=== PATIENT | female | born 1955 | race Caucasian/White ===

== ENCOUNTER 2024-06-24 14:37 | Outpatient (OUT) | payer MEDICARE, MEDICAID, SELFPAY | END 2024-06-24 14:38 | disposition home or self-care (01) | LOC: WC 14:37 | PROVIDERS: PCP Family Medicine; Visit Provider Physician Assistant | DX: L97.912 Non-pressure chronic ulcer of unspecified part of right lower leg with fat layer exposed (principal) | CPT/HCPCS: G0463 ==

== ENCOUNTER 2024-07-10 13:18 | Outpatient (OUT) | payer MEDICARE, MEDICAID, SELFPAY | END 2024-07-10 13:19 | disposition home or self-care (01) | LOC: WC 13:18 | PROVIDERS: PCP Family Medicine; Visit Provider Physician Assistant | DX: L97.912 Non-pressure chronic ulcer of unspecified part of right lower leg with fat layer exposed (principal) | CPT/HCPCS: 11043 ==

== ENCOUNTER 2024-07-22 15:42 | Outpatient (OUT) | payer MEDICARE, MEDICAID, SELFPAY | END 2024-07-22 15:43 | disposition home or self-care (01) | LOC: WC 15:45 | PROVIDERS: PCP Family Medicine; Visit Provider Physician Assistant | DX: I87.312 Chronic venous hypertension (idiopathic) with ulcer of left lower extremity (principal); L97.822 Non-pressure chronic ulcer of other part of left lower leg with fat layer exposed | CPT/HCPCS: A6213; G0463 ==

== ENCOUNTER 2024-10-01 14:35 | Outpatient (OUT) | payer MEDICARE, MEDICAID, SELFPAY | END 2024-10-01 14:36 | disposition home or self-care (01) | LOC: WC 14:35 | PROVIDERS: PCP Family Medicine; Visit Provider Physician Assistant | DX: I87.312 Chronic venous hypertension (idiopathic) with ulcer of left lower extremity (principal); L97.822 Non-pressure chronic ulcer of other part of left lower leg with fat layer exposed | CPT/HCPCS: G0463 ==

== ENCOUNTER 2024-10-22 13:27 | Outpatient (OUT) | payer MEDICARE, MEDICAID, SELFPAY ==
--- OUTSIDE RECORDS SUMMARY | 2024-10-22 13:29 | XMS_ITS | Encounter Summary ---
Author Organization [facility] Address [id number] [address] [place] [address] Care Team Providers Care Trench Trimmer Fine Name Role Phone Jh Keaton Joy BUNN Primary Care Provider [phone] Reason for Visit * Reason Onset Date Comments Care Navigation 05/10/2023 Encounter Details Date Type Department Care Team (Late st Contact Info) Description 05/10/2023 Telephone [facility] - Family Medicine [address] [place] [phone] Linda Ulloa, CIPRIANO Care Navigation Social History Tobacco Use Types Packs/Day Years Used Date Smoking Tobacco: Former Cigarettes Smokeless Tobacco: Never Comments:smoked for 1 year w tab was age 18 Alcohol Use Standard Drinks/Week Comments Yes 1 (1 standard drink = 0.6 oz pur e alcohol) socially Social Connection and Isolat ion Panel [NHANES] Answer Date Recorded In a typical week, how many times do you talk on the phone with family, friends, or neighbors? More than three times a week 02/27/2023 How often do you get togethe r with friends or relatives? Three times a week 02/27/2023 How often do you attend chur ch or anabaptism services? More than 4 times per year 02/27/2023 Do you belong to any clubs o r organizations such as congregational groups, unions, fraternal or athletic groups, or school groups? No 02/27/2023 How often do you attend meet ings of the clubs or organizations you belong to? Never 02/27/2023 Are you , , di vorced, , never , or living with a partner? 02/27/2023 AUDIT-C Answer Date Recorded Q1: How often do you have a drink containing alcohol? Monthly or less 02/27/2023 Q2: How many drinks containi ng alcohol do you have on a typical day when you are drinking? Patient does not drink Q3: How often do you have si x or more drinks on one occasion? Never 02/27/2023 Overall Financial Resource Strain (CARDIA) Answe r Date Recorded How hard is it for you to pa y for the very basics like food, housing, medical care, and heating? Hard 02/27/2023 PHQ-2 Answer Date Recorded Total Score 4 05/09/2023 [facility] - Occupational Stress Questionnaire Answer Date Recorded Do you feel stress - tense, restless, nervous, or anxious, or unable to sleep at night because your mind is troubled all the time - these days? To some extent 02/27/2023 Exercise Vital Sign Answer Date Recorde d On average, how many days pe r week do you engage in moderate to strenuous exercise (like a brisk walk)? 0 days 02/27/2023 On average, how many minutes do you engage in exercise at this level? 0 min 02/27/2023 PRAPARE - Transportation Answer Date Re corded In the past 12 months, has l ack of transportation kept you from medical appointments or from getting medications? No 02/18 In the past 12 months, has l ack of transportation kept you from meetings, work, or from getting things needed for daily living? No 02/27/2023 Housing Instability Answer Date Recorde d Are you worried or concerned that in the next two months you may not have stable housing that you own, rent or stay in as a part of a household? No 02/27/2023 Childcare Answer Date Recorded Do problems getting child ca re make it difficult for you to work or study? No 02/27/2023 Employment Answer Date Recorded Do you need help finding a [facility] and/or a training program? No 02/27/2023 Hunger Screening Answer Date Recorded Within the past 12 months we worried whether our food would run out before we got money to buy more. Often True 05/09/2023 Within the past 12 months th e food we bought just didn't last and we didn't have money to get more. Often True 05/09/2023 Purpose - Life Answer Date Recorded I have a purpose and direction in my life. Somew hat Agree 02/27/2023 Comments No Sex and Gender Information Value Date Recorded Sex Assigned at Not on file Legal Sex Female 11:24 AM EDT Gender Identity Not on file Sexual Orientation Not on file documented as of this encounter Plan of Treatment Not on file documented as of this encounter Visit Diagnoses Not on filedocumented in this encounter Additional Health Concerns Infection Onset Date Last Indicated Resolved Time COVID-19 Rule-Out 05/21/2023 05/21/2023 05/21/2023 12:48 PM EST Assessment Noted Time PHQ-9 Depression Total Score: 4 05/09/20 23 2:40 PM EST A Body Mass Index follow-up plan has been documented for the patient 04/23/2019 8:40 AM EST documented as of this encounter Care Teams Trench Trimmer Fine Relationship Specialty Start Date End Date Keaton Peñaloza DO [address] [place] [address] PCP - General Internal Medicine 06/24/24 documented as of this encounter
--- OUTSIDE RECORDS SUMMARY | 2024-10-22 13:29 | XMS_ITS | Encounter Summary ---
[id number] [address] [place] [address] Care Team Providers Care Turbinated Bone Grinder Name Role Phone Keaton Peñaloza DO Primary Care Provider [phone] Encounter Details Date Type Department Care Team (Late st Contact Info) Description 05/11/2023 Orders Only [facility] Internal [facility] - Family Medicine [address] [place] [address] Keaton Peñaloza DO [address] [place] [address] Rectal bleeding (Primary Dx) Social History Tobacco Use Types Packs/Day Years [...] often do you attend chur ch or rastafari services? More than 4 times per year 02/27/2023 Do you belong to any clubs o r organizations such as baptism groups, unions, fraternal or athletic groups, or [...] Answer Date Recorded Total Score 4 05/09/2023 [facility] of Occupat ional Health - Occupational [...] Recorded Do you need help finding a l ocal career center and/or a training program? No [...] documented as of this encounter Visit Diagnoses Diagnosis Rectal bleeding- Primary Hemorrhage of rectum and anus documented in this encounter Additional Health Concerns Infection Onset Date Last Indicated Resolved Time COVID-19 Rule-Out 05/21/2023 05/21/2023 05/21/2023 12:48 PM EST Assessment Noted Time PHQ-9 Depression Total Score: 4 05/09/20 23 2:40 PM EST A Body Mass Index follow-up plan has been documented for the patient 04/23/2019 8:40 AM EST documented as of this encounter Care Teams Turbinated Bone Grinder Relationship Specialty Start Date End Date Keaton Peñaloza DO [address] [place] [address] PCP - General Internal Medicine 06/24/24 documented as of this encounter
--- OUTSIDE RECORDS SUMMARY | 2024-10-22 13:29 | XMS_ITS | Encounter Summary ---
Author Organization [id number] [address] [place] [address] Care Team Providers Care Professional Shopper Name Role Phone Keaton Peñaloza DO Primary Care Provider [phone] Encounter Details Date Type Department Care Team (Late st Contact Info) Description 05/09/2024 Orders Only [facility] - Family Medicine [address] [place] [phone] Keaton Peñaloza DO [address] [place] [address] Social History Tobacco Use Types Packs/Day Years Used Date Smoking Tobacco: Former Cigarettes Q uit: 1976 Smokeless Tobacco: Never Comments:smoked for 1 year w hen was age 18 Alcohol Use Standard Drinks/Week Comments Yes 1 (1 standard drink = 0.6 oz pur e alcohol) socially [employer] Utilities Answer Date Recorded In the past 12 months has [employer], gas, oil, or water [employer] threatened to shut off services in your home? Yes 07/30/2023 Social Connection and Isolat ion Panel [NHANES] Answer Date Recorded In a typical week, how many times do you talk on the phone with family, friends, or neighbors? More than three times a week 02/27/2023 How often do you get togethe r with friends or relatives? Three times a week 02/27/2023 How often do you attend chur or hindu services? More than 4 times per year 02/27/2023 Do you belong to any clubs o r organizations such as methodist groups, unions, fraternal or athletic groups, or [...] 02/27/2023 PHQ-2 Answer Date Recorded Total Score 17 08/20/2023 [facility]ational Stress Questionnaire Answer Date Recorded [...] from medical appointments or from getting medications? Yes 07/19 In the past 12 months, has l ack of transportation kept you from meetings, work, or from getting things needed for daily living? No 07/30/2023 Housing Instability Answer Date Recorde d Are you worried or concerned that in the next two months you may not have stable housing that you own, rent or stay in as a part of a household? No 07/30/2023 Childcare Answer Date Recorded Do problems getting child ca re make it difficult for you to work or study? No 02/27/2023 Employment Answer Date Recorded Do you need help finding a [facility] and/or a training program? No 02/27/2023 Hunger Screening Answer Date Recorded Within the past 12 months we worried whether our food would run out before we got money to buy more. Often True 05/08/2024 Within the past 12 months th e food we bought just didn't last and we didn't have money to get more. Often True 05/08/2024 Purpose - Life Answer Date Recorded I [...] on file documented as of this encounter Goals Goal Patient Goal Type Associated Problems Recent Progress Patient-Stated? Author safe transition to home General Yes Nini De Luna LSW Note: Evaluation of progress towards goal: safe transition to home with self care. documented as of this encounter Visit Diagnoses Not on filedocumented in this encounter Additional Health Concerns Assessment Noted Time PHQ-9 Depression Total Score: 17 024 1:37 PM EDT A Body Mass Index follow-up plan has been documented for the patient 04/23/2019 8:40 AM EST documented as of this encounter Care Teams Professional Shopper Relationship Specialty Start Date End Date Keaton Peñaloza DO [address] [place] [address] PCP - General Internal Medicine 06/24/24 documented as of this encounter
--- OUTSIDE RECORDS SUMMARY | 2024-10-22 13:29 | XMS_ITS | Encounter Summary ---
Author Organization [facility] Address [facility][id number] [address] [place] [address] Care Team Providers Care Admission Nurse Name Role Phone MarissarocioKeaton DO Primary Care Provider [phone] Encounter Details Date Type Department Care Team (Late st Contact Info) Description 04/11/2024 Telephone [facility] - Family Medicine [address] [place] [phone] Vannessa Harris CMA Social History Tobacco Use Types Packs/Day Years Used Date Smoking Tobacco: Former Cigarettes Q uit: 1976 Smokeless Tobacco: Never Comments:smoked for 1 year w hen was age 18 Alcohol Use Standard Drinks/Week Comments Yes 1 (1 standard drink = 0.6 oz pur e alcohol) socially [employer] Utilities Answer Date Recorded In the past 12 months has e electric, gas, oil, or water company threatened to shut off services in your [...] often do you attend chur ch or catholic services? More than 4 times per year 02/27/2023 Do you belong to any clubs o r organizations such as sikh groups, unions, fraternal or athletic groups, or [...] Answer Date Recorded Total Score 17 08/20/2023 [facility] Occupat ional [facility] - Occupational Stress Questionnaire Answer Date Recorded [...] Recorded Do you need help finding a [facility] and/or a training program? No 02/27/2023 Hunger Screening Answer Date Recorded Within the past 12 months we worried whether our food would run out before we got money to buy more. Often True 12/27/2023 Within the past 12 months th e food we bought just didn't last and we didn't have money to get more. Often True 12/27/2023 Purpose - Life Answer Date Recorded I [...] documented as of this encounter Care Teams Admission Nurse Relationship Specialty Start Date End Date Keaton Peñaloza DO [address] [place] [id number] PCP - General Internal Medicine 06/24/24 documented as of this encounter
--- OUTSIDE RECORDS SUMMARY | 2024-10-22 13:29 | XMS_ITS | Encounter Summary ---
Author Organization [facility] Address [id number] [address] [place] [address] Care Team Providers Care Couture Alterations Dressmaker Name Role Phone MarissarocioKeaton DO Primary Care Provider [phone] Encounter Details Date Type Department Care Team (Late st Contact Info) Description 05/01/2024 Telephone [facility] - Family Medicine [address] [place] [phone] Yolanda Roth CMA Social History Tobacco Use Types Packs/Day Years Used Date Smoking Tobacco: Former Cigarettes Q uit: 1976 Smokeless Tobacco: Never Comments:smoked for 1 year w hen was age 18 Alcohol Use Standard Drinks/Week Comments Yes 1 (1 standard drink = 0.6 oz pur e alcohol) socially [employer] Utilities Answer Date Recorded In the past [...] often do you attend chur ch or latter-day services? More than 4 times per year 02/27/2023 Do you belong to any clubs o r organizations such as yazdanism groups, unions, fraternal or athletic groups, or [...] Answer Date Recorded Total Score 17 08/20/2023 [facility] Occupat ional Health - Occupational Stress [...] on file documented as of this encounter Miscellaneous Notes * Telephone Encounter - Yolanda Roth CMA - 05/01/2024 10:13 AM EST Pt called just wanted us to know she has COVID. She went to the urgent care got some medication andwas just making sure she did not have a appt today. She has one next week the 05/08 * Telephone Encounter - Keaton Peñaloza DO - 05/01/2024 10:13 AM EST Message noted. documented in this encounter Plan of Treatment Not on [...] documented as of this encounter Care Teams Couture Alterations Dressmaker Relationship Specialty Start Date End Date Keaton Peñaloza DO [address] [place] [address] PCP - General Internal Medicine 06/24/24 documented as of this encounter
--- OUTSIDE RECORDS SUMMARY | 2024-10-22 13:29 | XMS_ITS | Clinical Summary ---
Author Organization [facility] Address [address] [place] [address] Care Team Providers Care Bill Recapitulation Clerk Name Role Phone Unavailable Primary Care Provider Unavailabl e Allergies Active Allergy Reactions Criticality Noted Date Comments Codeine Nausea Only,GI intolerance Medium 7 Nausea Tramadol Nausea Only,GI intolerance Low 9 Medications amLODIPine (Norvasc) 10 MG tablet Take 1 tablet by mouth at bedtime 5 Active aspirin 81 MG EC tablet Take 81 mg by mouth in the morning. 5 Active atorvastatin (Lipitor) 40 MG tablet Take 40 mg by mouth in the morning. 5 Active busPIRone (Buspar) 10 MG tablet Take 10 mg by mouth in the morning. 4 Active capecitabine (Xeloda) 500 MG chemo tablet Take 2,500 mg by mouth twice a day. 4 Active ferrous sulfate (FeroSul) 325 (65 Fe) MG tablet Take 325 mg by mouth in the morning. 5 Active finerenone (Kerendia) 10 MG tablet Take 10 mg by mouth in the morning. 4 Active insulin glargine (Lantus SoloStar) 100 UNIT/ML pen Inject 60 Units under the skin at bedtime 4 Active insulin lispro (HumaLOG) 100 UNIT/ML injection Inject under the skin if needed Active irbesartan (Avapro) 300 MG tablet Take 300 mg by mouth in the morning. 5 Active meclizine (Antivert) 25 MG tablet Take 25 mg by mouth Daily as needed 5 Active metoprolol tartrate (Lopressor) 50 MG tablet Take 50 mg by mouth in the morning and 50 mg in the evening. 4 Active metroNIDAZOLE (Flagyl) 500 MG tablet Take 500 mg by mouth if needed 5 Active mirtazapine (Remeron) 7.5 MG tablet Take 1 tablet by mouth at bedtime 4 Active ondansetron (Zofran) 8 MG tablet Take 8 mg by mouth every 8 (eight) hours if needed 4 Active polyethylene glycol, PEG, 3350 (Miralax) 17 g packet Take 17 g by mouth 4 Active prochlorperazin e (Compazine) 10 MG tablet Take 10 mg by mouth every 6 (six) hours if needed 4 Active semaglutide (Ozempic, 1 MG/DOSE,) 2 MG/1.5ML solution pen-injector Inject 1 mg under the skin once a week Active SITagliptin-met FORMIN ER (Janumet XR) 50-1000 MG per 24 hr tablet Take 1 tablet by mouth 4 Active Lancets 33G misc Active insulin pen needle (Ultra John Insulin Pen [place]) 32G x 4 mm misc Inject under the skin if needed Use as instructed Active glucose blood test strip 1 each by Other route if needed Use as instructed Active Continuous Glucose Sensor (FreeStyle Vik 2 Sensor) misc Active Continuous Glucose Linoleum Tile Layer (FreeStyle Vik 2 Gibson) device Active Apoaequorin 20 MG capsule Take by mouth Activ e Immunizations Immunization Administration Dates Next Due ABRYSVO - Respiratory syncyt ial virus (RSV), vaccine, bivalent, protein subunit RSV prefusion F, diluent reconstituted, 0.5 mL, PF 01/02/2024 Influenza, High Dose Seasona l, Preservative Free 05/04/2017 Influenza, injectable, quadr ivalent, preservative free 05/03/2017,02/16/2016,02/19/2015 Influenza, seasonal, injectable 02/10/2015 Influenza, seasonal, injecta ble, preservative free 02/11/2014 Pneumococcal Polysaccharide PPSV23 11/01/2016 Tdap 08/22/2019 Zoster, Recombinant 04/30/2018,12/21/2017 Family History Medical History Relation Name Comments Diabetes Brother 1 Diabetes Mother Relation Name Status Comments Brother 1 Alive Daughter 1 Alive Father Alive Mother Son 1 Alive Social History Tobacco Use Types Packs/Day Years Used Date Smoking Tobacco: Never Tobacco Cessation:Counseling Given: Not Answered Alcohol Use Standard Drinks/Week Comments Yes 0 (1 standard drink = 0.6 oz pur e alcohol) one a month Comments Unknown Sex and Gender Information Value Date Recorded Sex Assigned at Not on file Legal Sex Female 7:17 PM EDT Gender Identity Female 08/02/2022 7:17 PM EDT Sexual Orientation Not on file Last Filed Vital Signs Vital Sign Reading Time Taken Comments Blood Pressure 144/88 06/28/2022 3:18 PM EST Pulse 92 06/28/2022 3:18 PM EST Temperature - - Respiratory Rate 18 06/28/2022 3:18 PM EST Oxygen Saturation - - Inhaled Oxygen Concentration - - Weight 102 kg (225 lb) 06/28/2022 3:18 PM EST Height 170.2 cm (5' 7 ) 06/28/2022 3:18 PM EST Body Mass Index 35.24 06/28/2022 3:18 PM EST Plan of Treatment Not on file Insurance [place]ICAID [place]
--- OUTSIDE RECORDS SUMMARY | 2024-10-22 13:29 | XMS_ITS | Referral Summary ---
Author Organization [facility] Address [address] [place] [address] Care Team Providers Care Barkeep Name Role Phone Unavailable Primary Care Provider Unavailabl e Social History Tobacco Use Types Packs/Day Years Used Date Smoking Tobacco: Never Assessed [place] Safety & Environment Answer Date Rec orded Fear of Current or Ex-Partner Not on file Emotionally Abused Not on file 08/10/2023 Physically Abused Not on file 08/10/2023 Sexually Abused Not on file 08/10/2023 Physically or Sexually Abused Not on file Sex and Gender Information Value Date Recorded Sex Assigned at Not on file Gender Identity Not on file Sexual Orientation Not on file Plan of Treatment Not on file
--- OUTSIDE RECORDS SUMMARY | 2024-10-22 13:29 | XMS_ITS | Encounter Summary ---
Author Organization [facility] Address [id number] [address] [place] [address] Care Team Providers Care Mechanical Inspector Name Role Phone MarissacandiceKeaton denis DO Primary Care Provider [phone] Encounter Details Date Type Department Care Team (Late st Contact Info) Description 03/07/2023 Telephone [facility] - Family Medicine [address] [place] [address] Kassi Rosado CMA Social History Tobacco Use Types Packs/Day [...] How often do you attend chur or holiness services? More than 4 times per year 02/27/2023 Do you belong to any clubs o r organizations such as taoism groups, unions, fraternal or athletic groups, or [...] you are drinking? Patient does not drink 3 Q3: How often do you have si x or more drinks on one occasion? Never 02/27/2023 Overall Financial Resource Strain (CARDIA) Answe r Date Recorded How hard is it for you to pa y for the very basics like food, housing, medical care, and heating? Hard 02/27/2023 PHQ-2 Answer Date Recorded Total Score 2 02/27/2023 [facility] Occupat ional Health - Occupational [...] Recorded Do you need help finding a [facility] and/or a training program? No 02/27/2023 Hunger Screening Answer Date Recorded Within the past 12 months we worried whether our food would run out before we got money to buy more. Never True 02/27/2023 Within the past 12 months th e food we bought just didn't last and we didn't have money to get more. Never True 02/27/2023 Purpose - Life Answer Date Recorded I have a purpose and direction in my life. Somew hat Agree 02/27/2023 Comments No Sex and Gender Information Value Date Recorded Sex Assigned at Not on file Legal Sex Female 11:24 AM EDT Gender Identity Not on file Sexual Orientation Not on file documented as of this encounter Miscellaneous Notes * Telephone Encounter - Kassi Rosado CMA - 03/07/2023 3:01 PM EDT I called this patient for her Colonoscopy and she said that she has no transportation right now. She will try to find someone and call us back. * Telephone Encounter - Keaton Peñaloza DO - 03/07/2023 3:01 PM EDT Message noted. I put a reminder in for one month documented in this encounter Plan of Treatment Not on file documented as of this encounter Visit Diagnoses Not on filedocumented in this encounter Additional Health Concerns Infection Onset Date Last Indicated Resolved Time COVID-19 Rule-Out 05/21/2023 05/21/2023 05/21/2023 12:48 PM EST Assessment Noted Time PHQ-9 Depression Total Score: 2 02/28/20 23 3:00 PM EDT A Body Mass Index follow-up plan has been documented for the patient 04/23/2019 8:40 AM EST documented as of this encounter Care Teams Mechanical Inspector Relationship Specialty Start Date End Date Keaton Peñaloza DO [address] [place] [address] PCP - General Internal Medicine 06/24/24 documented as of this encounter
--- OUTSIDE RECORDS SUMMARY | 2024-10-22 13:29 | XMS_ITS | Encounter Summary ---
Author Organization [employer] Address [id number] [address] [place] [address] Care Team Providers Care Piano Regulator Name Role Phone Jh Keaton Joy BUNN Primary Care Provider [phone] Reason for Visit * Reason Onset Date Comments Care Navigation 05/11/2023 Encounter Details Date Type Department Care Team (Late st Contact Info) Description 05/11/2023 Telephone [facility] - Family Medicine [address] [place] [address] Linda Ulloa, CIPRIANO Care Navigation Social History [...] often do you attend chur ch or muslim services? More than 4 times per year 02/27/2023 Do you belong to any clubs o r organizations such as restoration groups, unions, fraternal or athletic groups, or [...] Answer Date Recorded Total Score 4 05/09/2023 [facility] Occupat ional Health - Occupational Stress [...] Recorded Do you need help finding a [facility] career [facility] and/or a training program? [...] encounter Miscellaneous Notes * Telephone Encounter - Linda Ulloa RN - 05/11/2023 10:34 AM EST Contact Type: Direct contact - Phone call with patient - general CN called in follow up with patient. Patient states that she has a ride set up for colonoscopy, butwaiting to verify. Also waiting to verify day of colonoscopy. Vice President Of Product Marketing did review with patient that through her [employer] insurance, she is eligible for [address] trips a year to non-emergent doctor visits. This can also be used for food resources (goingto food bank, food pantry and grocery store for curb side grain picker) They would also need at least 2 days advanced notice. Patient would need to to call [employer] to set up transportation appt. Pt would be able to take 1 judicial assistant with her, as long as judicial assistant was 18 yo or older. Also reviewed with patient TRIPS program servicing [facility], different zones in [facility]. Patient would need to call [phone] at least 24 hours in advance. Sometimes they are able to accommodate same day, depending on ride volume. They also do have rider assistance upon request. CN introduced herself, explained role of property caretaker, TCM services available, and ACN will be available to provide assistance for a minimum of 30 days post discharge. ACN contact information provided, encouraged to call for assistance as needed. * Telephone Encounter - BECKY Camacho - 05/11/2023 10:34 AM EST Thank you that is great to know documented in this encounter Plan of Treatment [...] documented as of this encounter Care Teams Piano Regulator Relationship Specialty Start Date End Date Keaton Peñaloza DO [address] [place] [address] PCP - General Internal Medicine 06/24/24 documented as of this encounter
--- OUTSIDE RECORDS SUMMARY | 2024-10-22 13:29 | XMS_ITS | Encounter Summary ---
Author [facility] Address [id number] [address] [place] [address] Care Team Providers Care Master Brewer Name Role Phone Keaton Peñaloza DO Primary Care Provider [phone] Encounter Details Date Type Department Care Team (Late st Contact Info) Description 03/19/2023 Orders Only [facility] - Family Medicine [address] [place] [address] Keaton Peñaloza DO [address] [place] [address] Type 2 diabetes mellitus with microalbuminuria, with long-term current use of insulin ([facility]) Social History Tobacco Use Types Packs/Day Years [...] often do you attend chur ch or sikhism services? More than 4 times per year 02/27/2023 Do you belong to any clubs o r organizations such as orthodox groups, unions, fraternal or athletic groups, or [...] Answer Date Recorded Total Score 2 02/27/2023 [facility] Occupat ional Health - [...] Do you need help finding a [facility] career center and/or a training program? No [...] as of this encounter Visit Diagnoses Diagnosis Type 2 diabetes mellitus with microalbuminuria, with long-term current use of insulin ([facility]) documented in this encounter Additional Health Concerns Infection Onset Date Last Indicated Resolved Time COVID-19 Rule-Out 05/21/2023 05/21/2023 05/21/2023 12:48 PM EST Assessment Noted Time PHQ-9 Depression Total Score: 2 02/28/20 23 3:00 PM EDT A Body Mass Index follow-up plan has been documented for the patient 04/23/2019 8:40 AM EST documented as of this encounter Care Teams Master Brewer Relationship Specialty Start Date End Date Keaton Peñaloza DO [address] [place] [place] [id number] PCP - General Internal Medicine 06/24/24 documented as of this encounter
--- OUTSIDE RECORDS SUMMARY | 2024-10-22 13:29 | XMS_ITS | Encounter Summary ---
Author Organization [employer] Address [id number] [address] [place] [address] Care Team Providers Care Bow Rehairer Name Role Phone JhKeaton DO Primary Care Provider [phone] Reason for Visit * Reason Onset Date Comments Med Refill 03/20/2024 Encounter Details Date Type Department Care Team (Late st Contact Info) Description 03/20/2024 Refill [facility] - Family Medicine [address] [place] [phone] Aurea Moreau, ALAN Social History Tobacco Use Types Packs/Day Years Used Date Smoking Tobacco: Former Cigarettes Q uit: 1976 Smokeless Tobacco: Never Comments:smoked for 1 year w hen was age 18 Alcohol Use Standard Drinks/Week Comments Yes 1 (1 standard drink = 0.6 oz pur e alcohol) socially C Utilities Answer Date Recorded In the past 12 months has [employer], gas, oil, or water company threatened [...] any clubs o r organizations such as religious groups, unions, fraternal or athletic groups, or [...] Answer Date Recorded Total Score 17 08/20/2023 [facility] of Occupat ional Health - [...] Recorded Do you need help finding a [facility] career center and/or a training program? No [...] documented as of this encounter Care Teams Bow Rehairer Relationship Specialty Start Date End Date Keaton Peñaloza DO [address] [place] [address] PCP - General Internal Medicine 06/24/24 documented as of this encounter
--- OUTSIDE RECORDS SUMMARY | 2024-10-22 13:29 | XMS_ITS | Patient Health Record ---
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
--- OUTSIDE RECORDS SUMMARY | 2024-10-22 13:29 | XMS_ITS | Encounter Summary ---
Author Organization [employer] Address [id number] [address] [place] [address] Care Team Providers Care Clinical Liaison Name Role Phone Jh Keaton Joy BUNN Primary Care Provider [phone] Encounter Details Date Type Department Care Team (Late st Contact Info) Description 03/19/2023 Telephone [facility] - Family Medicine [address] [place] [address] Winter Snider CMA Social History Tobacco Use Types Packs/Day [...] How often do you attend chur or baptist services? More than 4 times per year 02/27/2023 Do you belong to any clubs o r organizations such as roman catholic groups, unions, fraternal or athletic groups, or [...] Answer Date Recorded Total Score 2 02/27/2023 [facility] of Occupat ional Health - Occupational [...] Recorded Do you need help finding a [facility] career center and/or a training program? [...] encounter Miscellaneous Notes * Telephone Encounter - Winter Snider CMA - 03/19/2023 12:33 PM EDT Pt called and Pharmacy never got the Ozempic prescription can you resend documented in this encounter Plan of Treatment [...] documented as of this encounter Care Teams Clinical Liaison Relationship Specialty Start Date End Date Keaton Peñaloza DO [address] [place] [address] PCP - General Internal Medicine 06/24/24 documented as of this encounter
--- OUTSIDE RECORDS SUMMARY | 2024-10-22 13:29 | XMS_ITS | Encounter Summary ---
Author Organization [employer] Address [id number] [address] [place] [address] Care Team Providers Care Manufacturing Assistant Name Role Phone MarissarocioKeaton DO Primary Care Provider [phone] Encounter Details Date Type Department Care Team (Late st Contact Info) Description 05/11/2023 Telephone [facility] - Family Medicine [address] [place] [address] Yolanda Roth CMA Social History Tobacco Use [...] How often do you attend chur or scientologist services? More than 4 times per year 02/27/2023 Do you belong to any clubs o r organizations such as zoroastrianism groups, unions, fraternal or athletic groups, or [...] Answer Date Recorded Total Score 4 05/09/2023 [facility] of Occupat ional Health - [...] Recorded Do you need help finding a [facility] career center and/or a training program? No [...] Telephone Encounter - Yolanda Roth CMA - 05/11/2023 12:54 PM EST I called pt and left 2nd voicemail stating when COLONOSCOPY was scheduled for 05/25/2023 at 1pm Be there a hour early.Could you please send prep to Pharmacy listed * Telephone Encounter - Keaton Peñaloza DO - 05/11/2023 12:54 PM EST Message noted. H&P done. Rx Suprep sent to [facility] documented in this encounter Plan of Treatment [...] documented as of this encounter Care Teams Manufacturing Assistant Relationship Specialty Start Date End Date Keaton Peñaloza DO [address] [place] [address] PCP - General Internal Medicine 06/24/24 documented as of this encounter
--- OUTSIDE RECORDS SUMMARY | 2024-10-22 13:30 | XMS_ITS | Encounter Summary ---
Author Organization [facility] tem Address [id number] [address] [place] [address] Care Team Providers Care Rock Singer Name Role Phone MarissarocioKeaton DO Primary Care Provider [phone] Encounter Details Date Type Department Care Team (Late st Contact Info) Description 12/22/2022 Telephone [facility] [address] [place] [phone] Angelo Lion PA [address] [facility] [place] [address] Social History Tobacco Use Types Packs/Day Years Used Date Smoking Tobacco: Former Cigarettes Smokeless Tobacco: Never Comments:smoked for 1 year w hen was age 18 Alcohol Use Standard Drinks/Week Comments Yes 1 (1 standard drink = 0.6 oz pur e alcohol) socially Childcare Answer Date Recorded Childcare Unknown 10/18/2018 Employment Answer Date Recorded Employment Unknown 10/18/2018 Purpose - Life Answer Date Recorded Purpose and direction in life Unknown Comments No Sex and Gender Information Value Date Recorded Sex Assigned at Not on file Legal Sex Female 11:24 AM EDT Gender Identity Not on file Sexual Orientation Not on file documented as of this encounter Miscellaneous Notes * Telephone Encounter - Keeley Almanzar - 12/22/2022 11:07 AM EDT Left message for patient to call. Hand x-rays ordered 11/02/22. Were they done and if so where. Appointment is on 12/28/22 with Ra. documented in this encounter Plan of Treatment Not on file documented as of this encounter Visit Diagnoses Not on filedocumented in this encounter Additional Health Concerns Infection Onset Date Last Indicated Resolved Time COVID-19 Rule-Out 05/21/2023 05/21/2023 05/21/2023 12:48 PM EST Assessment Noted Time A Body Mass Index follow-up plan has been documented for the patient 04/23/2019 8:40 AM EST documented as of this encounter Care Teams Rock Singer Relationship Specialty Start Date End Date Keaton Peñaloza DO [address] [place] [id number] PCP - General Internal Medicine 06/24/24 documented as of this encounter
--- OUTSIDE RECORDS SUMMARY | 2024-10-22 13:30 | XMS_ITS | Encounter Summary ---
Author Organization [facility] Address [facility] [place] [address] Care Team Providers Care Certified Nurse Midwife Name Role Phone Yanick Cesar Unavailable Keaton Peñaloza Primary Care Provider [phone] Pauline Fatima GENERAL TECHNICIAN Unavailable Unavailable Little Bowens RN Unavailable [phone] Arturo Mcdonald MD Unavailable [phone] Cailin Montero PA-C Unavailable [phone] Richardson Beltran MD Unavailable [phone] Source Comments In the event this information is protected by the Federal Confidentiality of Alcohol and Drug AbusePatient Records regulations: The Federal rules restrict any use of the information to criminally investigate or prosecute any alcohol or drug abuse patient.[facility] Encounter Details Date Type Department Care Team (Late st Contact Info) Description 09/02/2023 [place] [address] Provider, [facility] MRI Screening Questionnaire Completion Required Social History Tobacco Use Types Packs/Day Years Used Date Smoking Tobacco: Former Cigarettes Passive Smoke Exposure: Past Smokeless Tobacco: Never Alcohol Use Standard Drinks/Week Comments Yes 0 (1 standard drink = 0.6 oz pur e alcohol) occasional Area Deprivation Index Answer Date Krish rded National Score (1-100), lower number is lower ri sk 76 07/10/2023 State Score (1-10), lower number is lower risk 6 07/10/2023 Data from: https://www.neighborhoodatlas.medicine.[facility].edu/. Last address used for calculation Tomasa ORTEZ 07/10/2023 Comments No Sex and Gender Information Value Date Recorded Sex Assigned at Not on file Legal Sex Female 11:28 AM EDT Gender Identity Not on file Sexual Orientation Not on file documented as of this encounter Plan of Treatment Upcoming Encounters Date Type Department Care Team (Latest Contact Info) Description 11/14/2024 3:20 PM EDT Appointment [facility] [place] [address] [place] [address] MRI RECTUM WWO 11/17/2024 1:00 PM EDT Office Visit [facility] [address] [place] [address] [place] [address] FOLLOW UP AFTER MRI 11/17/2024 1:40 PM EDT Visit (SP) Office Hematology/Oncology [address] [place] [address] Richardson Beltran MD [address] [place] [address] [place] [address] FOLLOW UP AFTER MRI - this day due to MAYANK being on vacation documented as of this encounter Visit Diagnoses Not on filedocumented in this encounter Care Teams Certified Nurse Midwife Relationship Specialty Start Date End Date Keaton Peñaloza [address] [place] [address] PCP - General Internal Medicine 07/10/23 Yanick Cesar [address] [place] [address] Referring Frozen Foods Manager 09/05/18 Pauline Fatima LSW Overhauler Bus Truck 07/10/23 Little Bowens, RN [address] [place] [address] Specialty Dynamite Cartridge Crimper Hematology/Oncology 09/19/23 Arturo Mcdonald MD [address] [place] [address] [place] [address] Physician Hematology/Oncology 09/19/23 01/03/24 Cailin Montero PA-C [address] [place] [address] [place] [address] Physician Welder Production Line Combination Hematology/Oncology 09/19/23 Richardson Beltran MD [address] [place] [address] [place] [address] Physician Hematology/Oncology 01/04/24 documented as of this encounter
--- OUTSIDE RECORDS SUMMARY | 2024-10-22 13:30 | XMS_ITS | Clinical Summary ---
Author Organization [employer] tem Address [id number] [address] [place] [address] Care Team Providers Care Operating Engineer Apprentice Name Role Phone Keaton Peñaloza DO Primary Care Provider [phone] Allergies Active Allergy Reactions Criticality Noted Date Comments Codeine Nausea 10/11/2016 Tramadol Nausea Low 10/17/2018 Medications metoprolol tartrate (LOPRESSOR) 50 mg tablet Take 1 tablet (50 mg total) by mouth in the morning and 1 tablet (50 mg total) before bedtime. 90 tablet 3 08/01/19 24 Active clobetasoL (TEMOVATE) 0.05 % creamIndications:L ichen sclerosus Apply 1 Application topically in the morning and 1 Application before bedtime. 30 g 08/07/19 24 Active mirtazapine (REMERON) 7.5 mg tabletIndications: Depression, unspecified depression type take 1 tablet by mouth nightly 30 tablet 1 12/06/19 24 Active finerenone 10 mg tabletIndications: Type 2 diabetes mellitus with microalbuminuria, with long-term current use of insulin ([facility]) Take 10 mg by mouth in the morning. 90 tablet 1 12/29/19 24 Active insulin glargine (LANTUS SOLOSTAR U-100 INSULIN) 100 unit/mL (3 mL) insulin penIndications:Typ e 2 diabetes mellitus without complication, with long-term current use of insulin ([facility]) Inject 60 Units under the skin nightly. 45 mL 1 04/07/20 24 Active pen needle, diabetic (BD ULTRA-FINE MARIA C PEN NEEDLE) 32 gauge x 5/32 needleIndications: Type 2 diabetes mellitus without complication, with long-term current use of insulin ([facility]) Use to inject insulin four times daily 400 each 1 04/09/20 24 Active ondansetron (ZOFRAN) 8 mg tablet Take 1 tablet (8 mg total) by mouth every 8 (eight) hours as needed. 02/06/20 24 Active prochlorperazine (COMPAZINE) 10 mg tablet Take 1 tablet (10 mg total) by mouth every 6 (six) hours as needed. 02/06/20 24 Active busPIRone (BUSPAR) 10 mg tabletIndications: Panic attack as reaction to stress Take 1 tablet by mouth every day 90 tablet 1 05/09/20 24 Active irbesartan (AVAPRO) 300 mg tabletIndications: Essential hypertension Take 1 tablet by mouth every day 90 tablet 1 08/08/19 25 Active aspirin 81 mgIndications:Type 2 diabetes mellitus without complication, with long-term current use of insulin ([facility]) Take 1 tablet by mouth every day 90 tablet 3 08/08/19 25 Active amLODIPine (NORVASC) 10 mg tabletIndications: Essential hypertension Take 1 tablet by mouth every evening 90 tablet 08/08/19 25 Active ferrous sulfate (FeroSuL) 325 (65 FE) MG tabletIndications: Iron deficiency Take 1 tablet by mouth every day 90 tablet 08/08/19 25 Active atorvastatin (LIPITOR) 40 mg tabletIndications: Mixed hyperlipidemia Take 1 tablet by mouth every day 90 tablet 1 08/08/19 25 Active semaglutide (OZEMPIC) 2 mg/dose (8 mg/3 mL) pen injectorIndication s:Type 2 diabetes mellitus with microalbuminuria, with long-term current use of insulin ([facility]) Dial and inject 2 mg under the skin weekly 9 mL 09/06/19 25 Active meclizine (ANTIVERT) 25 mg tabletIndications: Benign paroxysmal positional vertigo, unspecified laterality Take 1 tablet by mouth every day as needed for dizziness 30 tablet 1 09/11/19 25 Active Active Problems Problem Noted Date Diagnosed Date Hypokalemia 07/31/2023 Atrial fibrillation with rapid ventricular respo nse 07/30/2023 Rectal adenocarcinoma 07/30/2023 Rectal mass 05/25/2023 Rectal bleeding 05/11/2023 Hypertension 03/19/2023 Type 2 diabetes mellitus wit h microalbuminuria, with long-term current use of insulin 03/19/2023 Esophageal obstruction due to food impaction 01/2023 Food bolus obstruction of intestine 05/29/2022 Overview (05/30/2022): Added automatically from request for surgery [id number] COVID-19 03/21/2021 Squamous cell carcinoma of vulva 10/29/2019 Carcinoma of vulva, FIGO stage IB 11/01/2018 Vulvar lesion 10/21/2018 Primary osteoarthritis of left knee 11/13/2016 Encounters Date Type Department Care Team Description 10/08/2024 Telephone [facility] [address] [place] [address] Yolanda Roth CMA 10/03/2024 Refill [facility] [address] [place] [address] Keaton Peñaloza, Benign paroxysmal positional vertigo, unspecified laterality 09/10/2024 Refill [facility] [address] [facility] [place] [address] Keaton Peñaloza, Benign paroxysmal positional vertigo, unspecified laterality 09/05/2024 Refill [facility] [address] [place] [address] Keaton Peñaloza, Type 2 diabetes mellitus with microalbuminuria, with long-term current use of insulin ([facility]) 08/07/2024 Refill [facility] [address] [place] [address] Keaton Peñaloza, Benign paroxysmal positional vertigo, unspecified laterality; Essential hypertension; Type 2 diabetes mellitus without complication, with long-term current use of insulin ([facility]); Iron deficiency; Mixed hyperlipidemia from Last 3 Months Immunizations Immunization Administration Dates Next Due Influenza (IM) Preservative Free 02/10/2015,01/20 Influenza, Im Trivalent Preservative ,02/16/2016,02/19/2015,02/10 Influenza, Injectable, Quadrivalent 02/11/2014 Influenza, Injectable, quadr ivalent (PF) 05/03/2017,02/16/2016,02/19/2015 Pneumococcal Polysaccharide 11/01/2016 Tdap 08/22/2019 Zoster Vaccine Recombinant 04/30/2018,12/21/2017 Family History Medical History Relation Name Comments Diabetes Brother Hypertension Father Diabetes Maternal Grandfather Heart attack Maternal Grandfather Uterine cancer Maternal Grandmother Diabetes Mother Stroke Mother Heart attack Paternal Grandfather Dementia Paternal Grandmother Heart attack Paternal Uncle Anesthesia problems Neg Hx Relation Name Status Comments Brother Alive Father Alive Maternal Grandfather Maternal Grandmother Mother Paternal Grandfather Paternal Grandmother Paternal Uncle Social History Tobacco Use Types Packs/Day Years Used Date Smoking Tobacco: Former Cigarettes Q uit: 1976 Smokeless Tobacco: Never Tobacco Cessation:Counseling Given: Not Answered Comments:smoked for 1 year when was age 18 Alcohol Use Standard Drinks/Week Comments Yes 1 (1 standard drink = 0.6 oz pur e alcohol) [employer] Utilities Answer Date Recorded In the past 12 months has [employer], gas, oil, or water [employer] threatened to shut off services in your [...] week 02/27/2023 How often do you attend [facility] or church services? More than 4 times per year [...] Answer Date Recorded Total Score 17 08/20/2023 [facility] - Occupational [...] got money to buy more. Never True 07/08/2024 Within the past 12 months th e food we bought just didn't last and we didn't have money to get more. Never True 07/08/2024 Purpose - Life Answer Date Recorded I have a purpose and direction in my life. Somew hat Agree 02/27/2023 Comments No Sex and Gender Information Value Date Recorded Sex Assigned at Not on file Legal Sex Female 11:24 AM EDT Gender Identity Not on file Sexual Orientation Not on file Last Filed Vital Signs Vital Sign Reading Time Taken Comments Blood Pressure 172/92 07/08/2024 2:57 AM EST Pulse 88 07/08/2024 1:50 AM EST Temperature 36.4 C (97.5 F) 07/08/2024 1:50 AM EST Respiratory Rate 18 07/08/2024 2:57 AM EST Oxygen Saturation 98% 07/08/2024 2:57 AM EST Inhaled Oxygen Concentration - - Weight 90.7 kg (200 lb) 07/08/2024 1:50 AM EST Height 170.2 cm (5' 7 ) 07/08/2024 1:50 AM EST Body Mass Index 31.32 07/08/2024 1:50 AM EST Plan of Treatment Health Maintenance Due Date Last Done Comments Adult BMI Follow Up Plan 09/09/1975 Diabetic Foot Exam 01/18/2024 01/17/2023 Medicare Annual Wellness Visit 02/28/2024 02/27/2023 Depression Screening 08/19/2024 08/20/2023 Fall Risk Screening 08/19/2024 08/20/2023 Diabetic Ophthalmology Exam 09/26/2024 09/27/2023 Urine Microalbumin 12/26/2024 12/27/2023, 01/17/2023 Influenza Vaccine 01/19/2025 05/04/2017, , 05/03/2017, Additional history exists Adult BMI Screening 07/08/2025 07/08/2024 Tobacco Screening 07/08/2025 07/08/2024 DTaP,Tdap and Td Vaccines (2 - Td or Tdap) 08/21/2029 08/22/2019 Zoster (Shingles) Vaccine Completed 04/30/2018, 07/2017 Pap Smear Discontinued 06/18/2023, 05/22, 04/02/2019, Additional history exists Goals Goal Patient Goal Type Associated Problems Recent Progress Patient-Stated? Author safe transition to home General Yes Nini De Luna LSW Note: Evaluation of progress towards goal: safe transition to home with self care. Medical Devices Implanted Type Area Needle Valve Operator Device Identifier Shelf Expiration Date Model / Serial / Lot Cement Bn Palacos Radpq 40g Rpl [id number] - Sna - [id number] Implanted:Qty : 2 on 11/13/2016 by Keaton Gibson DO at [facility] Cement Left: Knee [employer] 04/19/2021 [id number] / NA / [id number] Sys Bn Cmnt Feroz Quik-Use - [id number] Implanted:Qty : 1 on 11/13/2016 by Keaton Gibson DO at [facility] Cement Left: Knee [employer] 11/13/2016 [id number] / NA / NA Description:only bone pick n ot an implant Cmpt Fem E Kn Lt Lpsflx Gndr Rpl [id number] - [id number] Implanted:Qty : 1 on 11/13/2016 by Keaton Gibson DO at [facility] Orthopedic Implant Left: Knee [employer] [id number] 08/18/2026 [id number] / NA / [id number] Cmpt Ptlr Std 9mm 35mm Nxgn Rpl [id number] - [id number] Implanted:Qty : 1 on 11/13/2016 by Keaton Gibson DO at [facility] Orthopedic Implant Left: Knee [employer] [id number] 09/17/[id number]- 35 / NA / [id number] Ins Artc 5-6 E-F 10mm Kn Fx Rpl [id number] - [id number] Implanted:Qty : 1 on 11/13/2016 by Keaton Gibson DO at [facility] Orthopedic Implant Left: Knee [employer] [id number] 09/17/202179-2105-986- 10 / NA / [id number] Plt Tib 38f36cf Nxgn Opt Kn Sz5 Rpl [id number] - [id number] Implanted:Qty : 1 on 11/13/2016 by Keaton Gibson DO at [facility] Plate Left: Knee [employer] [id number] 05/20/202687-2928-121- 01 / NA / [id number] Explanted Type Area Needle Valve Operator Device Identifier Shelf Expiration Date Model / Serial / Lot Scr Bn 35mm 6.5mm St Noel Hip Rpl [id number] - [id number] Explanted:Qty: 2 on 11/13/2016 by Keaton Gibson, DO at [facility] Screw Left: Knee [employer] [id number] 07/18/2026 [id number] / / [id number] Scr Gd 48mm Qd-Spr Kn Hd Mis - [id number] Explanted:Qty: 2 on 11/13/2016 by Keaton Gibson, DO at [facility] Screw Left: Knee [employer] [id number] 09/17/2026 [id number] / NA / [id number] Procedures Procedure Name Priority Date/Time Associated Diagnosis Comments MICROALBUMIN / CREATININE URINE RATIO Routine 12/27/2023 3:18 PM EDT Type 2 diabetes mellitus without complication, with long-term current use of insulin ([facility]) DIABETES EYE EXAM Routine 09/27/2023 1:46 PM EDT HIGH RISK HPV W/ZANE Routine 06/18/2023 5:35 AM EST Cervical smear, as part of routine gynecological examination from Last 3 Months or Most Recently Relevant to Health Maintenance Results * (ABNORMAL) Microalbumin - Albumin: Creatinine Urine Ratio (12/27/2023 3:18 PM EDT) Microalbumin urine 22.6(H) 0.0 - 1.9 mg/dL 12/27/2023 11:28 PM EDT [facility] Urine creat 457.94 mg/dL 12/27/2023 11:28 PM EDT [facility] Alb/creat ratio 49.4(H) 0.0 - 30.0 mg/g creat 12/27/2023 11:28 PM EDT [facility] Urine / Unknown 12/27/2023 3 :18 PM EDT 12/27/2023 10:34 PM EDT us Keaton Smithcira DO URINE ORDERABLES Final Result Performing Organization Address City/[facility] Co de Phone Number [facility] [address], [address] [place] [address] * DIABETES EYE EXAM (09/27/2023 1:46 PM EDT) us Keaton Annrocio DO HEALTH MAINTENANCE Final Result Performing Organization Address City/[facility] Co de Phone Number MANUALLY TRANSCRIBED RESULTS * High risk HPV w/zane (06/18/2023 5:35 AM EST) Hpv specimen type ThinPrep 06/19/2023 5:35 AM EST [facility] Hpv 16 Negative Negative^N egative 06/19/2023 2:12 PM EST [facility] Hpv 18 Negative Negative^N egative 06/19/2023 2:12 PM EST [facility] Other high risk hpv Negative Negative^N egative 06/19/2023 2:12 PM EST [facility] Comment: HPV types 31,33,35,39,45,52,56,58,59,66 and 68 DNA were undetectable. THINP 06/18/2023 5:35 AM EST 06/19/2023 5:36 AM EST us Grace Bruce MD LAB BLOOD ORDERABLES Final Res ult Performing Organization Address City/[facility]/ZIP Co de Phone Number [facility] [address] [place] [address] [facility] [address] [place] [address] from Last 3 Months or Most Recently Relevant to Health Maintenance Insurance [place]ICAID [place] Member Subscriber Plan / Payer (Ef fective 2016-Present) Name:Dayanna Haddad Relation to Subscriber:Self Name:Dayanna Haddad Payer ID:Not on file Group ID:Not on file Type:Not on file Address: [place] [phone] [employer] MEDICARE [place]ID [place] Member Subscriber Plan / Payer (Ef fective 2016-Present) Name:Dayanna Haddad Relation to Subscriber:Self Name:Dayanna Haddad Payer ID:Not on file Group ID:Not on file Type:Not on file Address: [place] [phone] [employer] MEDICARE Advance Directives * Full Code (Latest Code Status on File) Date Activated Date Inactivated Comments 07/30/2023 2:34 PM 08/01/2023 3:54 PM * Full Code Date Activated Date Inactivated Comments 03/21/2021 2:25 PM 03/25/2021 8:35 PM * Full Code Date Activated Date Inactivated Comments 11/01/2018 4:35 PM 11/03/2018 7:24 PM Care Teams Operating Engineer Apprentice Relationship Specialty Start Date End Date Keaton Peñaloza DO [address] [place] [id number] PCP - General Internal Medicine 06/24/24
--- OUTSIDE RECORDS SUMMARY | 2024-10-22 13:30 | XMS_ITS | Encounter Summary ---
Author Organization [facility] Address [id number] [address] [place] [address] Care Team Providers Care Patternmaker Hand Name Role Phone Keaton Peñaloza DO Primary Care Provider [phone] Encounter Details Date Type Department Care Team (Late st Contact Info) Description 06/13/2023 Orders Only [facility] - [facility] Medicine [address] [place] [id number] Keaton Peñaloza DO [address] [place] [address] Adenocarcinoma of rectum ([facility]) (Primary Dx) Social History Tobacco Use Types [...] often do you attend chur ch or anabaptist services? More than 4 times per year 02/27/2023 Do you belong to any clubs o r organizations such as gnosticism groups, unions, fraternal or athletic groups, or [...] 02/27/2023 PHQ-2 Answer Date Recorded Total Score 0 06/12/2023 [facility] - Occupational [...] Do you need help finding a l al career center and/or a training program? No 02/27/2023 Hunger Screening Answer Date Recorded Within the past 12 months we worried whether our food would run out before we got money to buy more. Sometimes True 024 Within the past 12 months th e food we bought just didn't last and we didn't have money to get more. Sometimes True 06/12/2023 Purpose - Life Answer Date Recorded I [...] as of this encounter Visit Diagnoses Diagnosis Adenocarcinoma of rectum (CMS-HCC)- Primary documented in this encounter Additional Health Concerns Assessment Noted Time PHQ-9 Depression Total Score: 0 06/12/19 24 12:28 PM EST A Body Mass Index follow-up plan has been documented for the patient 04/23/2019 8:40 AM EST documented as of this encounter Care Teams Patternmaker Hand Relationship Specialty Start Date End Date Keaton Peñaloza DO [address] [place] [address] PCP - General Internal Medicine 06/24/24 documented as of this encounter
--- OUTSIDE RECORDS SUMMARY | 2024-10-22 13:30 | XMS_ITS | Encounter Summary ---
Author Organization [employer] [facility] tem Address [id number] [address] [place] [address] Care Team Providers Care Spanish Language Lecturer Name Role Phone Keaton Peñaloza DO Primary Care Provider [phone] Encounter Details Date Type Department Care Team (Late st Contact Info) Description 01/23/2023 Orders Only [facility] - Family Medicine [address] [place] [address] Keaton Peñaloza DO [address] [place] [address] Mixed hyperlipidemia (Primary Dx); Type 2 diabetes mellitus without complication, with long-term current use of insulin ([facility]) Social History Tobacco Use Types Packs/Day Years Used Date Smoking Tobacco: Former Cigarettes Smokeless Tobacco: Never Comments:smoked for 1 year w hen was age 18 Alcohol Use Standard Drinks/Week Comments Yes 1 (1 standard drink = 0.6 oz pur e alcohol) socially PHQ-2 Answer Date Recorded Total Score 0 01/17/2023 Childcare Answer Date Recorded Childcare Unknown 10/18/2018 [...] as of this encounter Visit Diagnoses Diagnosis Mixed hyperlipidemia- Primary Type 2 diabetes mellitus without complication, with long-term current use of insulin ([facility]) documented in this encounter Additional Health Concerns Infection Onset Date Last Indicated Resolved Time COVID-19 Rule-Out 05/21/2023 05/21/2023 05/21/2023 12:48 PM EST Assessment Noted Time PHQ-9 Depression Total Score: 0 01/18/20 2:58 PM EDT A Body Mass Index follow-up plan has been documented for the patient 04/23/2019 8:40 AM EST documented as of this encounter Care Teams Spanish Language Lecturer Relationship Specialty Start Date End Date Keaton Peñaloza DO [address] [place] [address] PCP - General Internal Medicine 06/24/24 documented as of this encounter
--- OUTSIDE RECORDS SUMMARY | 2024-10-22 13:30 | XMS_ITS | Encounter Summary ---
Author Organization [facility] Address [address] [place] [address] Care Team Providers Care Ceramic Maker Demonstrator Name Role Phone Yanick Cesar Unavailable Keaton Peñaloza Primary Care Provider Pauline Fatima Unavailable Unavailable Little Bowens RN Unavailable [phone] Cailin Montero PA-C Unavailable [phone] Richardson Beltran MD Unavailable [phone] Source Comments In the event this information is protected by the Federal Confidentiality of Alcohol and Drug AbusePatient Records regulations: The Federal rules restrict any use of the information to criminally investigate or prosecute any alcohol or drug abuse patient.[facility] Reason for Visit * Reason Comments Appointment Appointment reminder call--- Encounter Details Date Type Department Care Team (Late st Contact Info) Description 06/30/2024 Telephone Radiology [address] [place] [address] Loyda Argueta Appointment (Appointment reminder call---) Social History Tobacco Use Types Packs/Day Years Used Date Smoking Tobacco: Former Cigarettes Passive Smoke Exposure: Past Smokeless Tobacco: Never Alcohol Use Standard Drinks/Week Comments Yes 0 (1 standard drink = 0.6 oz pur e alcohol) occasional PHQ-2 Answer Date Recorded PHQ-2 score 0 11/21/2023 Area Deprivation Index Answer Date Krish rded National Score (1-100), lower number is lower ri sk 76 07/10/2023 State Score (1-10), lower number is lower risk 6 07/10/2023 Data from: https://www.neighborhoodatlas.medicine.[facility]/. Last address used for calculation [address] 07/10/2023 Comments No Sex and Gender Information Value Date Recorded Sex Assigned at Not on file Legal Sex Female 11:28 AM EDT Gender Identity Not on file Sexual Orientation Not on file documented as of this encounter Plan of Treatment Upcoming Encounters Date Type Department Care Team (Latest Contact Info) Description 11/14/2024 3:20 PM EDT Appointment [facility] [place] [address] [place] [address] MRI RECTUM WWO 11/17/2024 1:00 PM EDT Office Visit [facility] [address] [place] [address] FOLLOW UP AFTER MRI 11/17/2024 1:40 PM EDT Visit (SP) Office Hematology/Oncology [address] [place] [address] Richardson Beltran MD [address] [place] [address] [place] [address] FOLLOW UP AFTER MRI - this day due to MAYANK being on vacation documented as of this encounter Visit Diagnoses Not on filedocumented in this encounter Care Teams Ceramic Maker Demonstrator Relationship Specialty Start Date End Date Keaton Peñaloza [address] [place] [address] PCP - General Internal Medicine 07/10/23 Yanick Cesar [address] [place] [address] Referring Recruitment Assistant 09/05/18 Pauline Fatima LSW Automotive Internet Sales Consultant 07/10/23 Little Bowens, RN [address] [place] [address] [place] [address] Specialty Quality Assurance Analyst Hematology/Oncology 09/19/23 Cailin Montero PA-C [address] [place] [address] [place] [address] Physician Biscuit Factory Worker Hematology/Oncology 09/19/23 Richardson Beltran MD [address] [place] [address] [place] [address] Physician Hematology/Oncology 01/04/24 documented as of this encounter
--- OUTSIDE RECORDS SUMMARY | 2024-10-22 13:30 | XMS_ITS | Encounter Summary ---
Author Organization [facility] tem Address [id number] [address] [place] [address] Care Team Providers Care Litharge Mill Operator Name Role Phone MarissarocioKeaton DO Primary Care Provider Encounter Details Date Type Department Care Team (Late st Contact Info) Description 01/29/2023 Telephone [facility] - Family Medicine [address] [place] [phone] Winter Snider CMA Social History Tobacco Use [...] Telephone Encounter - Winter Snider CMA - 01/29/2023 11:32 AM EDT Pt came in and wanted to let you know she needs a new Prescription sent to [facility] for Basaglar since the units have changed. She would like a 90 day supply and it needs sent to the Pharmacy. documented in this encounter Plan of Treatment [...] documented as of this encounter Care Teams Litharge Mill Operator Relationship Specialty Start Date End Date Keaton Peñaloza DO [address] [place] [id number] PCP - General Internal Medicine 06/24/24 documented as of this encounter
--- OUTSIDE RECORDS SUMMARY | 2024-10-22 13:30 | XMS_ITS | Encounter Summary ---
Author Organization [facility] Address [facility] [place]-[id number] [address] [place] [address] Care Team Providers Care Para Professional Name Role Phone Keaton Peñaloza DO Primary Care Provider [phone] Encounter Details Date Type Department Care Team (Late st Contact Info) Description 10/02/2023 Orders Only [facility] Internal Medicine - Family Medicine [address] [place] [id number] Keaton Peñaloza DO [address] [place] [address] Social History Tobacco Use Types Packs/Day Years Used Date Smoking Tobacco: Former Cigarettes Q uit: 1976 Smokeless Tobacco: Never Comments:smoked for 1 year w hen was age 18 Alcohol Use Standard Drinks/Week Comments Yes 1 (1 standard drink = 0.6 oz pur e alcohol) socially [employer] Utilities Answer Date Recorded In the past 12 months has [employer], gas, oil, or water [employer] threatened to shut off services in your [...] How often do you attend chur or sikh services? More than 4 times per year 02/27/2023 Do you belong to any clubs o r organizations such as christian groups, unions, fraternal or athletic groups, or [...] Answer Date Recorded Total Score 17 08/20/2023 [facility] - Occupational Stress Questionnaire Answer Date Recorded [...] Recorded Do you need help finding a [facility] and/or a training program? No 02/27/2023 Hunger Screening Answer Date Recorded Within the past 12 months we worried whether our food would run out before we got money to buy more. Sometimes True 024 Within the past 12 months th e food we bought just didn't last and we didn't have money to get more. Sometimes True 09/14/2023 Purpose - Life Answer Date Recorded I [...] self care. documented as of this encounter Procedures Procedure Name Priority Date/Time Associated Diagnosis Comments DIABETES EYE EXAM Routine 09/27/2023 1:46 PM EDT documented in this encounter Results * DIABETES EYE EXAM (09/27/2023 1:46 PM EDT) Keaton Peñaloza DO HEALTH MAINTENANCE Final Result MANUALLY TRANSCRIBED RESULTS documented in this encounter Visit Diagnoses Not on filedocumented in this encounter Additional Health Concerns Assessment Noted Time PHQ-9 Depression Total Score: 17 024 1:37 PM EDT A Body Mass Index follow-up plan has been documented for the patient 04/23/2019 8:40 AM EST documented as of this encounter Care Teams Para Professional Relationship Specialty Start Date End Date Keaton Peñaloza DO [address] [place] [address] PCP - General Internal Medicine 06/24/24 documented as of this encounter
--- OUTSIDE RECORDS SUMMARY | 2024-10-22 13:30 | XMS_ITS | Encounter Summary ---
Author Organization [employer] Sys tem Address [facility] [place]-[id number] [address] [place] [address] Care Team Providers Care Staff Antisubmarine Officer Name Role Phone JhKeaton DO Primary Care Provider Encounter Details Date Type Department Care Team (Late st Contact Info) Description 06/13/2023 Telephone [facility] Internal Medicine - Family Medicine [address] [place] [address] Kassi Rosado CMA Social History [...] How often do you attend chur or mormonism services? More than 4 times per year 02/27/2023 Do you belong to any clubs o r organizations such as caodaism groups, unions, fraternal or athletic groups, or [...] Answer Date Recorded Total Score 0 06/12/2023 [facility] Occupat ional Health - Occupational [...] Recorded Do you need help finding a [facility] career [facility] and/or a training program? No [...] Telephone Encounter - Kassi Rosado CMA - 06/13/2023 9:19 AM EST Kayleen from [facility] called because they can not do the CEA. The orders for the CMP, Lipid and A1C was ordered at 13:03 and they only needed a Green top tub nd a lavendar top tube. The CEA was ordered at 14:54 and No gold top tube was needed so the patient is going to have to either come backhere or go to the hospital. We left a message for the patient to call us back to see where she wants to have it drawn. * Telephone Encounter - Keaton Peñaloza DO - 06/13/2023 9:19 AM EST I will send an order to the hospital, and she can get it done when she goes for the CT/PET scan * Telephone Encounter - Kassi Rosado CMA - 06/13/2023 9:19 AM EST Do you want to call her and tell her this?? * Telephone Encounter - Winter Snider CMA - 06/13/2023 9:19 AM EST Patient came here and got the lab drawn documented in this encounter Plan of Treatment Not on file documented as of this encounter Visit Diagnoses Not on filedocumented in this encounter Additional Health Concerns Assessment Noted Time PHQ-9 Depression Total Score: 0 06/12/19 12:28 PM EST A Body Mass Index follow-up plan has been documented for the patient 04/23/2019 8:40 AM EST documented as of this encounter Care Teams Staff Antisubmarine Officer Relationship Specialty Start Date End Date Keaton Peñaloza DO [address] [place] [address] PCP - General Internal Medicine 06/24/24 documented as of this encounter
--- OUTSIDE RECORDS SUMMARY | 2024-10-22 13:30 | XMS_ITS | Encounter Summary ---
Author Organization [employer] Sys tem Address [facility] [place][id number] [address] [place] [address] Care Team Providers Care Station Captain Name Role Phone Jh Keaton Joy BUNN Primary Care Provider [phone] Encounter Details Date Type Department Care Team (Late st Contact Info) Description 10/08/2024 Telephone [facility] Internal Medicine - Family Medicine [address] [place] [address] Yolanda Roth CMA Social History Tobacco Use Types Packs/Day Years Used Date Smoking Tobacco: Former Cigarettes Q uit: 1976 Smokeless Tobacco: Never Comments:smoked for 1 year w hen was age 18 Alcohol Use Standard Drinks/Week Comments Yes 1 (1 standard drink = 0.6 oz pur e alcohol) socially [employer] Utilities Answer Date Recorded In the past [...] often do you attend chur ch or yarsanism services? More than 4 times per year 02/27/2023 Do you belong to any clubs o r organizations such as episcopalian groups, unions, fraternal or athletic groups, or [...] Answer Date Recorded Total Score 17 08/20/2023 [facility] of Occupat ional Health - [...] Telephone Encounter - Yolanda Roth CMA - 10/08/2024 3:41 PM EDT Called pt to schedule appt if she would still like her medication for dizziness. documented in this encounter Plan of Treatment [...] documented as of this encounter Care Teams Station Captain Relationship Specialty Start Date End Date Keaton Peñaloza DO [address] [place] [address] PCP - General Internal Medicine 06/24/24 documented as of this encounter
--- OUTSIDE RECORDS SUMMARY | 2024-10-22 13:30 | XMS_ITS | Encounter Summary ---
Author Organization [facility] s tem Address [facility] [place]-[id number] [address] [place] [address] Care Team Providers Care Office Services Clerk Name Role Phone Keaton Peñaloza DO Primary Care Provider [phone] Encounter Details Date Type Department Care Team (Late st Contact Info) Description 12/12/2023 Orders Only [facility] Internal Medicine - Family Medicine [address] [place] [address] Keaton Peñaloza DO [address] [place] [address] Social History Tobacco Use Types Packs/Day Years Used Date Smoking Tobacco: Former Cigarettes Q uit: 1976 Smokeless Tobacco: Never Comments:smoked for 1 year w hen was age 18 Alcohol Use Standard Drinks/Week Comments Yes 1 (1 standard drink = 0.6 oz pur e alcohol) socially [employer] Utilities Answer Date Recorded In the past 12 months has [employer], gas, oil, or water [employer] threatened to shut off services in your [...] How often do you attend chur or mu-ism services? More than 4 times per year 02/27/2023 Do you belong to any clubs o r organizations such as holiness groups, unions, fraternal or athletic groups, or [...] Answer Date Recorded Total Score 17 08/20/2023 [facility] - Occupational Stress Questionnaire Answer Date Recorded [...] Recorded Do you need help finding a [facility] career [facility] and/or a training [...] documented as of this encounter Care Teams Office Services Clerk Relationship Specialty Start Date End Date Keaton Peñaloza DO [address] [place] [address] PCP - General Internal Medicine 06/24/24 documented as of this encounter
--- OUTSIDE RECORDS SUMMARY | 2024-10-22 13:30 | XMS_ITS | Encounter Summary ---
Author Organization [facility] [employer] [facility] [employer] Address [facility] [place] [place]-[id number] [address] [place] [address] Care Team Providers Care Museum Informatics Specialist Name Role Phone Keaton Peñaloza DO Primary Care Provider [phone] Reason for Visit * Reason Comments Med Refill Encounter Details Date Type Department Care Team (Late st Contact Info) Description 10/03/2024 Refill [facility] Internal Medicine - Family Medicine [address] [place] [address] Keaton Peñaloza DO [address] [place] [address] Benign paroxysmal positional vertigo, unspecified laterality Social History Tobacco Use Types Packs/Day Years Used Date Smoking Tobacco: Former Cigarettes Q uit: 1976 Smokeless Tobacco: Never Comments:smoked for 1 year w hen was age 18 Alcohol Use Standard Drinks/Week Comments Yes 1 (1 standard drink = 0.6 oz pur e alcohol) socially [employer] Utilities Answer Date Recorded In the past 12 months has [employer], gas, oil, or water [employer] threatened to shut off services in your [...] How often do you attend chur or lutheran services? More than 4 times per year 02/27/2023 Do you belong to any clubs o r organizations such as uatsdin groups, unions, fraternal or athletic groups, or [...] Answer Date Recorded Total Score 17 08/20/2023 [facility] of Occupat ional Health - Occupational [...] Recorded Do you need help finding a [facility] career center and/or a training program? No [...] as of this encounter Visit Diagnoses Diagnosis Benign paroxysmal positional vertigo, unspecified laterality documented in this encounter Additional Health Concerns Assessment Noted Time PHQ-9 Depression Total Score: 17 024 1:37 PM EDT A Body Mass Index follow-up plan has been documented for the patient 04/23/2019 8:40 AM EST documented as of this encounter Care Teams Museum Informatics Specialist Relationship Specialty Start Date End Date Keaton Peñaloza DO [address] [place] [address] PCP - General Internal Medicine 06/24/24 documented as of this encounter
--- OUTSIDE RECORDS SUMMARY | 2024-10-22 13:30 | XMS_ITS | Encounter Summary ---
Author Organization [facility] Address [facility] [id number] [address] [place] [address] Care Team Providers Care Table Attendant Name Role Phone Keaton Peñaloza DO Primary Care Provider [phone] Reason for Visit * Reason Comments Med Refill Encounter Details Date Type Department Care Team (Late st Contact Info) Description 09/24/2023 Refill [facility] Internal Medicine - Family Medicine [address] [place] [address] Keaton Peñaloza DO [address] [place] [address] Mixed hyperlipidemia Social History Tobacco Use Types Packs/Day Years Used Date Smoking Tobacco: Former Cigarettes Q uit: 1976 Smokeless Tobacco: Never Comments:smoked for 1 year w hen was age 18 Alcohol Use Standard Drinks/Week Comments Yes 1 (1 standard drink = 0.6 oz pur e alcohol) socially [employer] Utilities Answer Date Recorded In the past 12 months has [employer], [employer], oil, or water [employer] threatened to shut off services in your [...] any clubs o r organizations such as tenriism groups, unions, fraternal or athletic groups, or [...] Answer Date Recorded Total Score 17 08/20/2023 [facility] of Occupat ional Health - Occupational Stress [...] Recorded Do you need help finding a [facility] career center and/or a training program? No [...] encounter Miscellaneous Notes * Telephone Encounter - Keaton Peñaloza DO - 09/24/2023 9:45 AM EDT NO longer taking this dose documented in this encounter Plan of Treatment Not on file documented as of this encounter Goals Goal Patient Goal Type Associated Problems Recent Progress Patient-Stated? Author safe transition to home General Yes Nini De Luna LSW Note: Evaluation of progress towards goal: safe transition to home with self care. documented as of this encounter Visit Diagnoses Diagnosis Mixed hyperlipidemia documented in this encounter Additional Health Concerns Assessment Noted Time PHQ-9 Depression Total Score: 17 024 1:37 PM EDT A Body Mass Index follow-up plan has been documented for the patient 04/23/2019 8:40 AM EST documented as of this encounter Care Teams Table Attendant Relationship Specialty Start Date End Date Keaton Peñaloza DO [address] [place] [address] PCP - General Internal Medicine 06/24/24 documented as of this encounter
--- OUTSIDE RECORDS SUMMARY | 2024-10-22 13:30 | XMS_ITS | Encounter Summary ---
Author Organization [facility] Address [address] [place] [address] Care Team Providers Care Mechanical Technical Service Specialist Name Role Phone Yanick Cesar Unavailable Keaton Peñaloza Primary Care Provider [phone] Pauline Ftaima HOME THEATER EXPERT Unavailable Unavailable Little Bowens RN Unavailable [phone] Arturo Mcdonald MD Unavailable [phone] Cailin Montero PA-C Unavailable [phone] Richardson Beltran MD Unavailable [phone] Source Comments In the event this information is protected by the Federal Confidentiality of Alcohol and Drug AbusePatient Records regulations: The Federal rules restrict any use of the information to criminally investigate or prosecute any alcohol or drug abuse patient.[facility] Encounter Details Date Type Department Care Team (Late st Contact Info) Description 10/19/2023 Patient Msg Dentistry [address] [place], [place] [id number] Provider, Ccf Call to Verify Dental Insurance Social History Tobacco Use Types Packs/Day Years [...] is lower risk 6 07/10/2023 Data from: https://www.neighborhoodatlas.medicine.[facility].edu/. Last address used for calculation [address] 07/10/2023 Comments No Sex and Gender Information Value Date Recorded Sex Assigned at Not on file Legal Sex Female 11:28 AM EDT Gender Identity Not on file Sexual Orientation Not on file documented as of this encounter Plan of Treatment Upcoming Encounters Date Type Department Care Team (Latest Contact Info) Description 11/14/2024 3:20 PM EDT Appointment [facility] Radiology MRI [address] [place] [address] MRI RECTUM WWO 11/17/2024 1:00 PM EDT Office Visit [facility] [address] [place] [address] [place] [address] FOLLOW UP AFTER MRI 11/17/2024 1:40 PM EDT Visit (SP) Office Hematology/Oncology [address] [place] [address] [place] [address] Richardson Beltran MD [address] [place] [address] FOLLOW UP AFTER MRI - this day due to MAYANK being on vacation documented as of this encounter Visit Diagnoses Not on filedocumented in this encounter Care Teams Mechanical Technical Service Specialist Relationship Specialty Start Date End Date Keaton Peñaloza [address] [place] [address] PCP - General Internal Medicine 07/10/23 Yanick Cesar [address] [place] [address] Referring Geologist Petroleum 09/05/18 Pauline Fatima LSW Arc And Gas Welder 07/10/23 Little Bowens, RN [address] [place] [address] Specialty Gaming Pit Boss Hematology/Oncology 09/19/23 Arturo Mcdonald MD [address] [place] [address] [place] [address] Physician Hematology/Oncology 09/19/23 01/03/24 Cailin Montero PA-C [address] [place] [address] [place] [address] Physician Cp Bleacher Operator Hematology/Oncology 09/19/23 Richardson Beltran MD [address] [place] [address] [place] [address] Physician Hematology/Oncology 01/04/24 documented as of this encounter
--- OUTSIDE RECORDS SUMMARY | 2024-10-22 13:30 | XMS_ITS | Encounter Summary ---
Author Organization [facility] Address [facility] [place] [address] Care Team Providers Care Integrity Engineer Name Role Phone Yanick Cesar Unavailable Keaton Peñaloza Primary Care Provider [phone] Pauline Fatima Unavailable Unavailable Little Bowens RN Unavailable [phone] Cailin Montero PA-C Unavailable [phone] Richardson Beltran MD Unavailable [phone] Source Comments In the event this information is protected by the Federal Confidentiality of Alcohol and Drug AbusePatient Records regulations: The Federal rules restrict any use of the information to criminally investigate or prosecute any alcohol or drug abuse patient.[facility] Encounter Details Date Type Department Care Team (Late st Contact Info) Description 06/30/2024 Telephone Radiology [address] [place], [place] [id number] Loyda Argueta Social History Tobacco Use Types Packs/Day Years [...] is lower risk 6 07/10/2023 Data from: https://www.neighborhoodatlas.medicine.[facility]/. Last address used for calculation [address] [...] Info) Description 11/14/2024 3:20 PM EDT Appointment [facility] [place] [address] [place] [address] MRI RECTUM WWO 11/17/2024 1:00 PM EDT Office Visit [facility] [address] [place] [address] [place] [address] FOLLOW UP AFTER MRI 11/17/2024 1:40 PM EDT Visit (SP) Office Hematology/Oncology [address] [place] [address] Richardson Beltran MD [address] [place] [address] FOLLOW UP AFTER MRI - this day due to MAYANK being on vacation documented as of this encounter Visit Diagnoses Not on filedocumented in this encounter Care Teams Integrity Engineer Relationship Specialty Start Date End Date Keaton Peñaloza [address] [place] [address] PCP - General Internal Medicine 07/10/23 Yanick Cesar [address] [place] [address] Referring Customer Assistance Associate 09/05/18 Pauline Fatima LSW Mine Safety Engineer 07/10/23 Little Bowens RN [address] [place] [address] Specialty In Store Representative Hematology/Oncology 09/19/23 Cailin Montero PA-C [address] [place] [address] Physician Rollway Man Hematology/Oncology 09/19/23 Richardson Beltran MD [address] [place] [address] Physician Hematology/Oncology 01/04/24 documented as of this encounter
--- OUTSIDE RECORDS SUMMARY | 2024-10-22 13:30 | XMS_ITS | Encounter Summary ---
Author Organization [facility] Address [facility] [address] Care Team Providers Care Condenser Tester Name Role Phone Yanick Cesar Unavailable Keaton Peñaloza Primary Care Provider [phone] Pauline Fatima AGRICULTURAL EQUIPMENT OPERATOR Unavailable Unavailable Little Bowens RN Unavailable [phone] Arturo Mcdonald MD Unavailable [phone] Cailin Montero PA-C Unavailable [phone] Richardson Beltran MD Unavailable [phone] Source Comments In the event this information is protected by the Federal Confidentiality of Alcohol and Drug AbusePatient Records regulations: The Federal rules restrict any use of the information to criminally investigate or prosecute any alcohol or drug abuse patient.[facility] Encounter Details Date Type Department Care Team (Late st Contact Info) Description 12/09/2023 [place] [address] Provider, Ccf MRI Screening Questionnaire Completion Required [...] is lower risk 6 07/10/2023 Data from: https://www.neighborhoodatlas.medicine.[facility]/. Last address used for calculation [address] [...] EDT Appointment [facility] [place] [address] [place] [address] MRI RECTUM WWO 11/17/2024 1:00 PM EDT Office Visit [facility] [address] [place] [address] [place] [address] FOLLOW UP AFTER MRI 11/17/2024 1:40 PM EDT Visit (SP) Office Hematology/Oncology [address] [place] [address] [place] [address] Richardson Beltran MD [address] [place] [address] [place] [address] FOLLOW UP AFTER MRI - this day due to MAYANK being on vacation documented as of this encounter Visit Diagnoses Not on filedocumented in this encounter Care Teams Condenser Tester Relationship Specialty Start Date End Date Keaton Peñaloza [address] [place] [address] PCP - General Internal Medicine 07/10/23 Yanick Cesar [address] [place] [address] Referring Pediatric Registered Nurse 09/05/18 Pauline Fatima LSW Hot Plate Plywood Press Operator 07/10/23 Little Bowens RN [address] [place] [address] [place] [address] Specialty State Trooper Hematology/Oncology 09/19/23 Arturo Mcdonald MD [address] [place] [address] [place] [address] Physician Hematology/Oncology 09/19/23 01/03/24 Cailin Montero PANicholeC [address] [place] [address] [place] [address] Physician Mill Turner Hematology/Oncology 09/19/23 Richardson Beltran MD [address] [place] [address] [place] [address] Physician Hematology/Oncology 01/04/24 documented as of this encounter
--- OUTSIDE RECORDS SUMMARY | 2024-10-22 13:30 | XMS_ITS | Encounter Summary ---
Author Organization [facility] Address [address] [place] [address] Care Team Providers Care Insurance Agents Supervisor Name Role Phone Yanick Cesar Unavailable Keaton Peñaloza Primary Care Provider [phone] Pauline FatimaW Unavailable Unavailable Little Bowens RN Unavailable [phone] Arturo Mcdonald MD Unavailable [phone] Cailin Montero PA-C Unavailable [phone] Richardson Beltran MD Unavailable [phone] Source Comments In the event this information is protected by the Federal Confidentiality of Alcohol and Drug AbusePatient Records regulations: The Federal rules restrict any use of the information to criminally investigate or prosecute any alcohol or drug abuse patient.[facility] Encounter Details Date Type Department Care Team (Late st Contact Info) Description 08/10/2023 Lab Requisition [facility] [address] [place] [address] [place] [address] [place] [id number] Person encountering health services to consult on behalf of another person Social History Tobacco Use Types Packs/Day Years [...] is lower risk 6 07/10/2023 Data from: https://www.neighborhoodatlas.medicine.[facility]/. Last address used for calculation [address] [...] Info) Description 11/14/2024 3:20 PM EDT [facility] [place] [address] [place] [address] MRI RECTUM WWO 11/17/2024 1:00 PM EDT Office Visit [facility] [address] [place] [address] FOLLOW UP AFTER MRI 11/17/2024 1:40 PM EDT Visit (SP) Office Hematology/Oncology [address] [place] [address] Richardson Beltran MD [address] [place] [address] FOLLOW UP AFTER MRI - this day due to MAYANK being on vacation documented as of this encounter Procedures Procedure Name Priority Date/Time Associated Diagnosis Comments OUTSIDE SURG PATH SLIDE REVIEW Routine 08/10/2023 10:48 AM EDT Person encountering health services to consult on behalf of another person MISMATCH REPAIR PROTEINS BY IHC Routine 08/10/2023 10:48 AM EDT Person encountering health services to consult on behalf of another person documented in this encounter Results * MISMATCH REPAIR PROTEINS BY IHC (08/10/2023 10:48 AM EDT) MMR Interpretation Proficient (Microsatellite Stable) 4 5:05 PM EDT [facility] MLH1 Immunohistochemical Results Normal/Intact Nuclear Expression 4 5:05 PM EDT [facility] PMS2 Immunohistochemical Results Normal/Intact Nuclear Expression 4 5:05 PM EDT [facility] MSH2 Immunohistochemical Results Normal/Intact Nuclear Expression 4 5:05 PM EDT [facility] MSH6 Immunohistochemical Results Normal/Intact Nuclear Expression 4 5:05 PM EDT [facility] MLH1 Promoter Methylation Assay No 4 5:05 PM EDT [facility] Tumor Type Primary Colorectal Adenocarcinoma 4 5:05 PM EDT [facility] 4 5:05 PM EDT [facility] Referring Laboratory ([facility], [place], [place]) 4 5:05 PM EDT [facility] Block ID [id number] 4 5:05 PM EDT [facility] Fixative Formalin, 10% Neutra l Buffered 4 5:05 PM EDT [facility] Interpretation Comment and Reference Range Intact expression of MMR (mismatch repair) proteins by immunohistochemistry is highly correlated with a microsatellite stable result by MSI (microsatellite instability) PCR analysis, and the results from these tests are viewed as clinically equivalent by the FDA. This result excludes at least 90-95% of Delong syndrome. These tests are an imperfect screen because some mutations may not produce loss of immunohistochemical expression. MSI molecular testing can be performed upon request in cases with a high clinical suspicion and appropriate family history. In a phase 2 study of patients with metastatic carcinoma, Angelica et al. ([facility] 2015;372:5520-94) reported that clinical benefit of pembrolizumab, an anti-programmed 1 (PD-1) immune checkpoint inhibitor, was predicted by the tumor's mismatch repair status; mismatch repair deficient (dMMR) tumors are more responsive to PD-1 blockade than mismatch repair proficient tumors. Pembrolizumab is FDA-approved for treating adult and pediatric patients with unresectable or metastatic solid tumors that display microsatellite instability-high (MSI-H) by PCR assay or dMMR by immunohistochemistry (IHC). The FDA does not distinguish between PCR and IHC-based assays, as these are considered equivalent and complimentary tests. As clinically indicated, and in the appropriate setting of genetic counseling with informed patient consent, further genetic testing may be helpful. For more information or questions about this result, please call the [facility] for [facility] [employer] [facility] at [phone]. 5:05 PM EDT [facility] Method Immunohistochemistry was performed on formalin fixed paraffin-embedded tissue using the following clones: MLH1 (clone M1 mouse monoclonal); MSH2 ([id number] mouse monoclonal); and MSH6 ([id number] rabbit monoclonal); followed by ultrasensitive bright field detection (Optiview with amplification) from [[employer], [place]]. PMS2 (EP51 Rabbit monoclonal, [employer]); followed by ultrasensitive bright field detection ( Cho Refine Polymer DAB Detection) from [[employer], [place], [place]]. 5:05 PM EDT [facility] Disclaimer Laboratory Developed Test (LDT) Disclaimer: Performance characteristics of immunohistochemical, immunofluorescent and chromogenic in-situ hybridization tests have been determined by the performing laboratory within [facility] s Alexander Gamboa [facility] Pathology and Laboratory Medicine [place] ([facility], [facility], [facility], [facility], [facility], or [facility]) in a manner consistent with CLIA requirements. One or more of these tests have not been cleared or approved by the FDA. [facility] is regulated under CLIA as qualified to perform high-complexity testing. These tests are used for clinical purposes. They should not be regarded as investigational or for research. Positive and negative controls stain appropriately. 5:05 PM EDT [facility] Performing Lab Diagnostic interpretation performed at [facility], [address] [place] [address], [facility] [place] [address] CLIA: [id number] [employer]: Jimmie Ruiz MD Electronically signed out by: Christopher Leo MD 5:05 PM EDT [facility] Blocks or Slides PARAFFIN EMBEDDED TISSUE BLOCK SPECIMEN / Unknown 08/10/2023 10:48 AM EDT 08/22/2023 3:35 PM EDT us Evans Garza MD SURGICAL PATHOLOGY Final Resu lt [facility] [address] [place] [address], [place] * OUTSIDE SURG PATH SLIDE REVIEW (08/10/2023 10:48 AM EDT) Case Report Surgical Pathology Report Case: [id number] Authorizing Provider: Evans Garza MD Collected: 08/10/2023 10:48 AM Ordering Location: [facility] Received: 08/10/2023 10:45 AM [facility] Pathologist: Ricardo Gongora MD Specimen: SLIDE(S)/BLOCK(S) , 14 SLIDES & 1 BLOCK (1A), [id number] 08/13/2023 3:39 PM EDT [facility] FINAL DIAGNOSIS [employer], [place], [place] ([id number]; 06/26/2023) Rectal mass, procedure not specified: - 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 2. Anal verge, procedure not specified: - Inflammatory cloacogenic polyp, ulcerated, negative for dysplasia or carcinoma. 08/13/2023 3:39 PM EDT [facility] at 1539 EDT Performing Lab Diagnostic interpretation performed at [facility], [address] [place], [place] [address]IA# [id number] [employer]: Jimmie Ruiz M.D. 08/13/2023 3:39 PM EDT [facility] Blocks or Slides PARAFFIN EMBEDDED TISSUE BLOCK SPECIMEN / Unknown 08/10/2023 10:48 AM EDT 08/10/2023 10:45 AM EDT us Evans Garza MD SURGICAL PATHOLOGY Final Resu lt [facility] [address] [facility] [address] [place] [address], documented in this encounter Visit Diagnoses Diagnosis Person encountering health services to consult on behalf of another person Other person consulting on behalf of another person documented in this encounter Care Teams Insurance Agents Supervisor Relationship Specialty Start Date End Date Keaton Peñaloza [address] [place] [address] PCP - General Internal Medicine 07/10/23 Yanick Cesar [address] [place] [address] Referring Exceptional Needs Teacher 09/05/18 Pauline Fatima LSW Family Educator 07/10/23 Little Bowens, RN [address] [place] [address] Specialty Tongue Binder Hematology/Oncology 09/19/23 Arturo Mcdonald MD [address] [place] [address] [place] [address] Physician Hematology/Oncology 09/19/23 01/03/24 Cailin Montero PA-C [address] [place] [address] [place] [address] Physician All Around Presser Hematology/Oncology 09/19/23 Richardson Beltran MD [address] [place] [address] [place] [address] Physician Hematology/Oncology 01/04/24 documented as of this encounter
--- OUTSIDE RECORDS SUMMARY | 2024-10-22 13:30 | XMS_ITS | Encounter Summary ---
Author Organization [facility] Address [id number] [address] [place] [address] Care Team Providers Care Junior Legal Secretary Name Role Phone Keaton Peñaloza Joy BUNN Primary Care Provider [phone] Encounter Details Date Type Department Care Team (Late st Contact Info) Description 02/14/2024 Orders Only [facility] Internal Medicine - Family Medicine [address] [place] [id number] Ref Prov, [place] [address] Social History Tobacco Use Types Packs/Day Years [...] often do you attend chur ch or scientologist services? More than 4 times [...] Answer Date Recorded Total Score 17 08/20/2023 [facility] of Occupat ional [...] Recorded Do you need help finding a [facility] career center and/or a training [...] Procedure Name Priority Date/Time Associated Diagnosis Comments MULTIPLE LABS Routine 02/13/2024 1:23 PM EDT MULTIPLE LABS Routine 02/13/2024 1:17 PM EDT documented in this encounter Results * Multiple labs (02/13/2024 1:23 PM EDT) us Not In System Ref Prov MI IMAGING Final Res ult Performing Organization Address [facility] Co de Phone Number MANUALLY TRANSCRIBED RESULTS * Multiple labs (02/13/2024 1:17 PM EDT) us Not In System Ref Prov MI IMAGING Final Res ult Performing Organization Address [facility] Co de Phone Number MANUALLY TRANSCRIBED RESULTS documented in this encounter Visit Diagnoses Not on filedocumented in this encounter Additional Health Concerns Assessment Noted Time PHQ-9 Depression Total Score: 17 024 1:37 PM EDT A Body Mass Index follow-up plan has been documented for the patient 04/23/2019 8:40 AM EST documented as of this encounter Care Teams Junior Legal Secretary Relationship Specialty Start Date End Date Keaton Peñaloza DO [address] [place] [address] PCP - General Internal Medicine 06/24/24 documented as of this encounter
--- OUTSIDE RECORDS SUMMARY | 2024-10-22 13:30 | XMS_ITS | Encounter Summary ---
Author Organization [facility] Address [facility]-[id number] [address] [place] [address] Care Team Providers Care Cellophane Casting Machine Repairer Name Role Phone Keaton Peñaloza DO Primary Care Provider [phone] Encounter Details Date Type Department Care Team (Late st Contact Info) Description 01/18/2023 Orders Only [facility] Internal Medicine - Family Medicine [address] [place] [address] Keaton Peñaloza DO [address] [place] [address] Social History Tobacco Use Types Packs/Day Years [...] Noted Time PHQ-9 Depression Total Score: 0 08/30/20 23 2:58 PM EDT A Body Mass Index follow-up plan has been documented for the patient 04/23/2019 8:40 AM EST documented as of this encounter Care Teams Cellophane Casting Machine Repairer Relationship Specialty Start Date End Date Keaton Peñaloza DO [address] [place] [id number] PCP - General Internal Medicine 06/24/24 documented as of this encounter
--- OUTSIDE RECORDS SUMMARY | 2024-10-22 13:30 | XMS_ITS | Encounter Summary ---
Author Organization [facility] Address [facility] [place] [address] Care Team Providers Care Combiner Name Role Phone Yanick Cesar Unavailable Keaton Peñaloza Primary Care Provider [phone] Pauline Fatima Unavailable Unavailable Little Bowens RN Unavailable [phone] Cailin Montero PA-C Unavailable [phone] Richardson Beltran MD Unavailable [phone] Source Comments In the event this information is protected by the Federal Confidentiality of Alcohol and Drug AbusePatient Records regulations: The Federal rules restrict any use of the information to criminally investigate or prosecute any alcohol or drug abuse patient.[facility] Encounter Details Date Type Department Care Team (Late st Contact Info) Description 06/29/2024 [place] [address] Provider, [facility] MRI Screening Questionnaire Completion Required [...] is lower risk 6 07/10/2023 Data from: https://www.neighborhoodatlas.medicine.[facility].edu/. Last address used for calculation Tomasa [...] Info) Description 11/14/2024 3:20 PM EDT Appointment [facility] [place] [address] [place] [address] MRI RECTUM WWO 11/17/2024 1:00 PM EDT Office Visit [facility] [address] [place] [address] [place] [address] FOLLOW UP AFTER MRI 11/17/2024 1:40 PM EDT Visit (SP) Office Hematology/Oncology [address] [place] [address] Richardson Beltran MD [address] [place] [address] FOLLOW UP AFTER MRI - this day due to MAYANK being on vacation documented as of this encounter Visit Diagnoses Not on filedocumented in this encounter Care Teams Combiner Relationship Specialty Start Date End Date Keaton Peñaloza [address] [place] [address] PCP - General Internal Medicine 07/10/23 Yanick Cesar [address] [place] [address] Referring Therapeutic Case Manager 09/05/18 Pauline Fatima LSW Paper Goods Machine Operator 07/10/23 Little Bowens, RN [address] [place] [address] Specialty Retail Pharmacy Merchandiser Hematology/Oncology 09/19/23 Cailin Montero PA-C [address] [place] [address] Physician Tinter Photograph Hematology/Oncology 09/19/23 Richardson Beltran MD [address] [place] [address] Physician Hematology/Oncology 01/04/24 documented as of this encounter
--- OUTSIDE RECORDS SUMMARY | 2024-10-22 13:30 | XMS_ITS | Encounter Summary ---
Author Organization [facility] Address [facility] [place] [address] Care Team Providers Care Engine Turner Name Role Phone Yanick Cesar Unavailable Keaton Peñaloza Primary Care Provider [phone] Pauline Fatima Unavailable Unavailable Little Bowens RN Unavailable [phone] Cailin Montero PA-C Unavailable [phone] Richardson Beltran MD Unavailable [phone] Source Comments In the event this information is protected by the Federal Confidentiality of Alcohol and Drug AbusePatient Records regulations: The Federal rules restrict any use of the information to criminally investigate or prosecute any alcohol or drug abuse patient.[facility] Encounter Details Date Type Department Care Team (Late st Contact Info) Description 01/08/2024 [place] [address] Provider, [facility] MRI Screening Questionnaire Completion Required [...] lower risk 6 07/10/2023 Data from: https://www.neighborhoodatlas.medicine.[facility].edu/. Last address used for calculation Tomasa [...] Info) Description 11/14/2024 3:20 PM EDT Appointment [facility] [place] [address] [place] [address] MRI RECTUM WWO 11/17/2024 1:00 PM EDT Office Visit [facility] [address] [place] [address] [place] [address] FOLLOW UP AFTER MRI 11/17/2024 1:40 PM EDT Visit (SP) Office Hematology/Oncology [address] [place] [address] Richardson Beltran MD [address] [place] [address] FOLLOW UP AFTER MRI - this day due to MAYANK being on vacation documented as of this encounter Visit Diagnoses Not on filedocumented in this encounter Care Teams Engine Turner Relationship Specialty Start Date End Date Keaton Peñaloza [address] [place] [address] PCP - General Internal Medicine 07/10/23 Yanick Cesar [address] [place] [address] Referring Hand Mexican Food Maker 09/05/18 Pauline Fatima LSW Service Attendant Cafeteria 07/10/23 Little Bowens, RN [address] [place] [address] Specialty Digital Account Manager Hematology/Oncology 09/19/23 Cailin Montero PA-C [address] [place] [address] Physician Clinical Rehabilitation Specialist Hematology/Oncology 09/19/23 Richardson Beltran MD [address] [place] [address] Physician Hematology/Oncology 01/04/24 documented as of this encounter
--- OUTSIDE RECORDS SUMMARY | 2024-10-22 13:30 | XMS_ITS | Encounter Summary ---
Author Organization [employer] Address [facility]-[id number] [address] [place] [address] Care Team Providers Care Berry Planter Name Role Phone Keaton Peñaloza DO Primary Care Provider [phone] Reason for Visit * Reason Comments Med Refill Encounter Details Date Type Department Care Team (Late st Contact Info) Description 09/03/2022 Refill [facility] General Surgery [address] [place] [id number] Christopher Amin DO [address] [place], [place] [id number] Social History Tobacco Use Types Packs/Day Years [...] documented as of this encounter Care Teams Berry Planter Relationship Specialty Start Date End Date Keaton Peñaloza DO [address] [place] [address] PCP - General Internal Medicine 06/24/24 documented as of this encounter
--- OUTSIDE RECORDS SUMMARY | 2024-10-22 13:30 | XMS_ITS | Encounter Summary ---
Author Organization [facility] Address [facility] [place] [place]-[id number] [address] [place] [address] Care Team Providers Care Supervisor Vat House Name Role Phone Keaton Peñaloza DO Primary Care Provider [phone] Encounter Details Date Type Department Care Team (Late st Contact Info) Description 06/14/2023 Orders Only [facility] Internal Medicine - Family Medicine [address] [place] [phone] Keaton Peñaloza DO [address] [place] [address] Adenocarcinoma of rectum ([facility]) (Primary Dx) Social History Tobacco Use Types [...] often do you attend chur ch or baptism services? More than 4 times per year 02/27/2023 Do you belong to any clubs o r organizations such as sabianism groups, unions, fraternal or athletic groups, or [...] Answer Date Recorded Total Score 0 06/12/2023 [facility] of Occupat ional Health - [...] on file documented as of this encounter Results * (ABNORMAL) CEA (06/14/2023 1:44 PM EST) CEA 4.5(H) 0.0 - 3.0 ng/mL 06/14/2023 10:58 PM EST [facility] Comment: 0.0-3.0 ng/mL FOR NON SMOKERS 0.0-5.0 ng/mL FOR SMOKERS The method used for this test is Meseret rumr DXI chemiluminescent immunoassay. Values obtained by different assay methods cannot be used interchangeably. Blood Serum / Unknown 06/14/2023 1 :44 PM EST 06/14/2023 10:13 PM EST us Keaton Peñaloza DO LAB BLOOD ORDERABLES Final Resul t [facility] [address] [place] [address] documented in this encounter Visit Diagnoses Diagnosis Adenocarcinoma of rectum (CMS-HCC)- Primary documented in this encounter Additional Health Concerns Assessment Noted Time PHQ-9 Depression Total Score: 0 06/12/19 24 12:28 PM EST A Body Mass Index follow-up plan has been documented for the patient 04/23/2019 8:40 AM EST documented as of this encounter Care Teams Supervisor Vat House Relationship Specialty Start Date End Date Keaton Peñaloza DO [address] [place] [address] PCP - General Internal Medicine 06/24/24 documented as of this encounter
--- OUTSIDE RECORDS SUMMARY | 2024-10-22 13:30 | XMS_ITS | Encounter Summary ---
Author Organization [facility] Address [facility]-[id number] [address] [place] [address] Care Team Providers Care Can Intake Worker Name Role Phone Keaton Peñaloza DO Primary Care Provider [phone] Encounter Details Date Type Department Care Team (Late st Contact Info) Description 06/12/2023 Orders Only [facility] Internal Medicine - Family Medicine [address] [place] [phone] Keaton Peñaloza DO [address] [place] [address] Hypokalemia due to excessive gastrointestinal loss of potassium (Primary Dx) Social History Tobacco Use Types [...] often do you attend chur ch or mandaen services? More than 4 times per year 02/27/2023 Do you belong to any clubs o r organizations such as pentecostalism groups, unions, fraternal or athletic groups, or [...] Answer Date Recorded Total Score 0 06/12/2023 [facility] of Occupat ional Health - [...] Recorded Do you need help finding a vencor hospitalal career center and/or a training program? [...] as of this encounter Visit Diagnoses Diagnosis Hypokalemia due to excessive gastrointestinal loss of potassium- Primary documented in this encounter Additional Health Concerns Assessment Noted Time PHQ-9 Depression Total Score: 0 06/12/19 24 12:28 PM EST A Body Mass Index follow-up plan has been documented for the patient 04/23/2019 8:40 AM EST documented as of this encounter Care Teams Can Intake Worker Relationship Specialty Start Date End Date Keaton Peñaloza DO [address] [place] [address] PCP - General Internal Medicine 06/24/24 documented as of this encounter
--- OUTSIDE RECORDS SUMMARY | 2024-10-22 13:30 | XMS_ITS | Encounter Summary ---
Author Organization [facility] tem Address [id number] [address] [place] [address] Care Team Providers Care Director Work Name Role Phone Keaton Peñaloza Joy BUNN Primary Care Provider [phone] Encounter Details Date Type Department Care Team (Late st Contact Info) Description 11/01/2022 Orders Only [facility] [address] [place] [id number] Briseyda Eastman, COMPANY ACCOUNTANT-SETTLEMENT CLERK [address] [place], [place] [id number] Social History Tobacco Use Types Packs/Day Years [...] on file documented as of this encounter Procedures Procedure Name Priority Date/Time Associated Diagnosis Comments XR RIBS LT 3 VWS W PA CHEST Routine 09/26/2022 XR SHOULDER LT MIN 2 VWS Routine 09/26/2022 MR BRAIN W WO CONT Routine 03/28/2022 documented in this encounter Results * X-ray ribs left 3 views with pa chest (09/26/2022) Anatomical Region Laterality Modality MSK, Chest Left Computed Radiogr aphy Briseyda Eastman [facility] DIAGNO[facility]IC IMAG[facility] ORDERABLES Final Result * X-ray shoulder left minimum 2 views (09/26/2022) Anatomical Region Laterality Modality MSK, Upper Extremities, Shoulder Left Computed Radiography [facility]iseyda Eastman [facility] Final Result * MR brain with and without contrast (03/28/2022) Anatomical Region Laterality Modality Neuro, Head, Head and Neck, Neuro Covera N/A Magnetic Resonance Nino Kam DO [facility] ORDERABLES Salome l Result documented in this encounter Visit Diagnoses Not on filedocumented in this encounter Additional Health Concerns Infection Onset Date Last Indicated Resolved Time COVID-19 Rule-Out 05/21/2023 05/21/2023 05/21/2023 12:48 PM EST Assessment Noted Time A Body Mass Index follow-up plan has been documented for the patient 04/23/2019 8:40 AM EST documented as of this encounter Care Teams Director Work Relationship Specialty Start Date End Date Keaton Peñaloza DO [address] [place] [address] PCP - General Internal Medicine 06/24/24 documented as of this encounter
--- OUTSIDE RECORDS SUMMARY | 2024-10-22 13:30 | XMS_ITS | Encounter Summary ---
Author Organization [employer] tem Address [id number] [address] [place] [address] Care Team Providers Care Stratigrapher Name Role Phone JhKeaton DO Primary Care Provider [phone] Encounter Details Date Type Department Care Team (Late st Contact Info) Description 06/14/2023 Telephone [facility] Internal Medicine - Family Medicine [address] [place] [address] Kassi Rosado CMA Social History [...] How often do you attend chur or cheondoism services? More than 4 times per year [...] Answer Date Recorded Total Score 0 06/12/2023 [facility] - Occupational [...] Recorded Do you need help finding a [facility] career [facility] and/or a training program? [...] Telephone Encounter - Kassi Rosado CMA - 06/14/2023 1:26 PM EST Can you please put an order in for her CEA? We was here and we mandeep her blood. * Telephone Encounter - Keaton Peñaloza DO - 06/14/2023 1:26 PM EST Message noted. CEA order for clinic draw done documented in this encounter Plan of Treatment Not on file documented as of this encounter Visit Diagnoses Not on filedocumented in this encounter Additional Health Concerns Assessment Noted Time PHQ-9 Depression Total Score: 0 06/12/19 24 12:28 PM EST A Body Mass Index follow-up plan has been documented for the patient 04/23/2019 8:40 AM EST documented as of this encounter Care Teams Stratigrapher Relationship Specialty Start Date End Date Keaton Peñaloza DO [address] [place] [id number] PCP - General Internal Medicine 06/24/24 documented as of this encounter
--- OUTSIDE RECORDS SUMMARY | 2024-10-22 13:30 | XMS_ITS | Encounter Summary ---
Author Organization [facility] Address [address] [place] [address] Care Team Providers Care Cloud Engagement Partner Name Role Phone Yanick Cesar Unavailable Keaton Peñaloza Primary Care Provider [phone] Pauline Fatima Unavailable Unavailable Little Bowens RN Unavailable [phone] Cailin Montero PA-C Unavailable [phone] Richardson Betlran MD Unavailable [phone] Source Comments In the event this information is protected by the Federal Confidentiality of Alcohol and Drug AbusePatient Records regulations: The Federal rules restrict any use of the information to criminally investigate or prosecute any alcohol or drug abuse patient.[facility] Encounter Details Date Type Department Care Team (Late st Contact Info) Description 07/22/2024 Patient Msg Colorectal Surgery [address] [place] [id number] Provider, [facility] surgery August [address] Garza Social History Tobacco Use Types Packs/Day Years [...] is lower risk 6 07/10/2023 Data from: https://www.neighborhoodatlas.medicine.[facility]/. Last address used for [...] Info) Description 11/14/2024 3:20 PM EDT Appointment [facility] Radiology [facility] [address] [address] MRI RECTUM WWO 11/17/2024 1:00 PM EDT Office Visit [facility] [address] [place] [address] [place] [address] FOLLOW UP AFTER MRI 11/17/2024 1:40 PM EDT Visit (SP) Office Hematology/Oncology [address] [place] [address] [place] [address] Richardson Beltran MD [address] [place] [address] [place] [address] FOLLOW UP AFTER MRI - this day due to MAYANK being on vacation documented as of this encounter Visit Diagnoses Not on filedocumented in this encounter Care Teams Cloud Engagement Partner Relationship Specialty Start Date End Date Keaton Peñaloza [address] [place] [address] PCP - General Internal Medicine 07/10/23 Yanick Cesar [address] [place] [address] Referring Band Sawmill Operator 09/05/18 Pauline Fatima LSW Learning Center Coordinator 07/10/23 Little Bowens, RN [address] [place] [address] Specialty Endorsement Clerk Hematology/Oncology 09/19/23 Cailin Montero PA-C [address] [place] [address] [place] [address] Physician Yard Warehouse Worker Hematology/Oncology 09/19/23 Richardson Beltran MD [address] [place] [address] [place] [address] Physician Hematology/Oncology 01/04/24 documented as of this encounter
--- OUTSIDE RECORDS SUMMARY | 2024-10-22 13:31 | XMS_ITS | Encounter Summary ---
Author Organization [facility] Address [id number] [address] [place] [address] Care Team Providers Care Customer Success Manager Name Role Phone MarissarocioKeaton DO Primary Care Provider Reason for Visit * Reason Onset Date Comments Transition Of Care 08/02/2023 Encounter Details Date Type Department Care Team (Late st Contact Info) Description 08/02/2023 Telephone [facility] Internal [facility] - Family Medicine [address] [place] [phone] Lauren Carson, release manager Of Care Social History Tobacco Use Types Packs/Day Years Used Date Smoking Tobacco: Former Cigarettes Q uit: 1976 Smokeless Tobacco: Never Comments:smoked for 1 year w tab was age 18 Alcohol Use Standard Drinks/Week Comments Yes 1 (1 standard drink = 0.6 oz pur e alcohol) socially C Utilities Answer Date Recorded In the past 12 months has [facility] electric, gas, oil, or water company threatened [...] often do you attend chur ch or mosque services? More than 4 times per year 02/27/2023 Do you belong to any clubs o r organizations such as mandaen groups, unions, fraternal or athletic groups, or [...] Answer Date Recorded Total Score 0 06/12/2023 [facility] - Occupational [...] Recorded Do you need help finding a [facility] career center and/or a training program? No 02/27/2023 Hunger Screening Answer Date Recorded Within the past 12 months we worried whether our food would run out before we got money to buy more. Sometimes True 024 Within the past 12 months th e food we bought just didn't last and we didn't have money to get more. Sometimes True 07/30/2023 Purpose - Life Answer Date Recorded I have a purpose and direction in my life. Somew hat Agree 02/27/2023 Comments No Sex and Gender Information Value Date Recorded Sex Assigned at Not on file Legal Sex Female 11:24 AM EDT Gender Identity Not on file Sexual Orientation Not on file documented as of this encounter Miscellaneous Notes * Telephone Encounter - Lauren Carson RN - 08/02/2023 9:35 AM EDT Transition of Care (*required) *Additional Questions/Concerns Requiring PCP Follow-Up: Unable to reach patient For TCM, patient would need appt on/before 08/14/23 This documentation is being used for Transition of Care purposes: Yes Goal: Patient will demonstrate a safe transition from hospital to home Diagnosis on Discharge: Afib with RVR Hypokalemia Discharge Specialty: Cardiac *[facility] Date of Facility Discharge: Admitted: 07/30/23 Discharged: 08/01/23 Date of Interactive Contact and Name of Secondary School Principal: 08/02/23 @ 935 am: no answer, left message to return call 08/03/23 @ 115 pm: no answer *Medication Review Completed: Pending provider review START taking: metoprolol tartrate (LOPRESSOR) spironolactone (ALDACTONE) CHANGE how you take: atorvastatin (LIPITOR) ferrous sulfate (FeroSuL) OZEMPIC (semaglutide) STOP taking: azithromycin 500 mg tablet (ZITHROMAX) potassium chloride 20 MEQ CR tablet (KLOR-CON M 20) predniSONE 20 mg tablet (DELTASONE) Medication Reconciliation Questions/Concerns: *Follow Up Appointments with Providers: Primary: Keaton Peñaloza Jr, DO: Review of Pending Lab/Diagnostic Tests and Plan for Completion: Assessment and Support of Treatment Regimen Adherence and Medication Management: ADLs: DME: Transportation: Medications: Education Provided by ACN to Support Self-Management, Independent Living and ADLs: Communication with Home Health Agencies and Other Services Utilized/Needed by the Patient: Self care with family support * Telephone Encounter - Fara Marsh - 08/02/2023 9:35 AM EDT LM on VM * Telephone Encounter - Fara Marsh - 08/02/2023 9:35 AM EDT LM on VM * Telephone Encounter - Fara Marsh - 08/02/2023 9:35 AM EDT Unable to contact patient, left multiple messages * Telephone Encounter - Keaton Peñaloza DO - 08/02/2023 9:35 AM EDT Message noted. Check with oncology to see if they have heard from her? Any family contacts that we can check with? * Telephone Encounter - Fara Marsh - 08/02/2023 9:35 AM EDT Talked to pts daughter she is going to talk to her and have her call * Telephone Encounter - Keaton Peñaloza DO - 08/02/2023 9:35 AM EDT Message noted. Have we heard from her yet? * Telephone Encounter - Fara Marsh - 08/02/2023 9:35 AM EDT Looks like she's scheduled 08/19 documented in this encounter Plan of Treatment [...] documented as of this encounter Care Teams Customer Success Manager Relationship Specialty Start Date End Date Keaton Peñaloza DO [address] [place] [address] PCP - General Internal Medicine 06/24/24 documented as of this encounter
--- OUTSIDE RECORDS SUMMARY | 2024-10-22 13:31 | XMS_ITS ---
Author Organization [facility] Address [address] [place] [address] Care Team Providers Care Concrete Mixing Plant Laborer Name Role Phone Yanick Cesar Unavailable Keaton Peñaloza Primary Care Provider [phone] Pauline Fatima CHIEF MEDIA OFFICER Unavailable Unavailable Little Bowens RN Unavailable [phone] Cailin MonteroC Unavailable [phone] Richardson Beltran MD Unavailable [phone] Active Problems Problem Noted Date Diagnosed Date Stage 3a chronic kidney disease 10/31/2023 Rectal cancer 10/16/2023 Hypertension Diabetes Current Treatment and Therapy Plans No current plan information found. Past Treatment and Therapy Plans NON-CHEMO 1 Plan Name Start Date Discontinue Date Treatment Medications Discontinue Reason Plan Provider Cycles AMB HYDRATION WITH PARAMETERS - ONCE 4 01/25/2024 No medications scheduled. Other Arturo Mcdonald MD 1 of 1 cycle started ONCOLOGY REGIMEN Plan Name Start Date Discontinue Date Treatment Medications Discontinue Reason Plan Provider Cycles AMB CAPOX - OXALIPLATIN 130 D1 CAPECITABINE 1000 PO BID D1-14 - Q21D 4 2024 capecitabine (XELODA)oxalipl atin iv piggyback in D5W 500 mL (ELOXATIN)palon osetron (ALOXI) Other Richardson Beltran MD 3 of 6 cycles started
--- OUTSIDE RECORDS SUMMARY | 2024-10-22 13:31 | XMS_ITS | Encounter Summary ---
Author Organization [employer] Address [facility]-[id number] [address] [place] [address] Care Team Providers Care Snap Shearer Name Role Phone Keaton Peñaloza Joy BUNN Primary Care Provider [phone] Encounter Details Date Type Department Care Team (Late st Contact Info) Description 06/20/2023 Orders Only [facility] General Surgery [address] [place] [phone] Jackeline Gould CMA Social History Tobacco Use Types Packs/Day [...] How often do you attend chur or anabaptism services? More than 4 times per year 02/27/2023 Do you belong to any clubs o r organizations such as pentecostal groups, unions, fraternal or athletic groups, or [...] Answer Date Recorded Total Score 0 06/12/2023 [facility] - Occupational [...] Recorded Do you need help finding a [facility] and/or a training program? [...] documented as of this encounter Care Teams Snap Shearer Relationship Specialty Start Date End Date Keaton Peñaloza DO [address] [place] [address] PCP - General Internal Medicine 06/24/24 documented as of this encounter
--- OUTSIDE RECORDS SUMMARY | 2024-10-22 13:31 | XMS_ITS | Clinical Summary ---
Author Organization [facility] Address [address] [place] [id number] Care Team Providers Care Senior Infrastructure Engineer Name Role Phone Yanick Cesar Unavailable Keaton Peñaloza Primary Care Provider [phone] Pauline Fatima Unavailable Unavailable Little Bowens RN Unavailable [phone] Cailin Montero PA-C Unavailable [phone] Richardson Beltran MD Unavailable [phone] Allergies Active Allergy Reactions Criticality Noted Date Comments Codeine Other: See Comments 10/01/2018 Nausea Tramadol Vomiting Low 10/17/2018 Medications irbesartan (AVAPRO) 75 mg tablet Take 75 mg by mouth daily at bedtime. Active insulin lispro (HUMALOG KWIKPEN INSULIN) 100 unit/mL inpn Inject subcutaneously as directed. Active amLODIPine (NORVASC) 10 mg tablet Take 10 mg by mouth once daily. Active Acetaminophen 500 mg cap Take 500 mg by mouth as needed. Active aspirin, enteric coated (ASPIRIN, ENTERIC COATED) 81 mg EC tablet Take 81 mg by mouth every other day. 4 Active busPIRone (BUSPAR) 10 mg tablet Take by mouth. 3 Active ferrous sulfate 325 mg (65 mg iron) tablet Take 325 mg by mouth every 48 hours. 4 Active meclizine (ANTIVERT) 25 mg tab Take by mouth at bedtime as needed. 9 Active nystatin (MYCOSTATIN) ointment Apply 1 Application to affected area. 3 Active insulin glargine (LANTUS SOLOSTAR U-100 INSULIN) 100 unit/mL (3 mL) Inject 80 Units subcutaneously daily at bedtime. Active ondansetron (ZOFRAN) 8 mg tablet Take 1 tablet by mouth every 8 hours as needed for nausea/vomiting. 90 tablet 2 09/18/2023 3:58 PM EDT 4 Active atorvastatin (LIPITOR) 40 mg tablet Take 40 mg by mouth daily at bedtime. 4 Active clobetasol (TEMOVATE) 0.05 % cream Apply 1 Application to affected area two times a day. 4 Active metoprolol tartrate, short acting, (LOPRESSOR) 50 mg tablet Take 50 mg by mouth two times a day. 4 Active Mirtazapine (REMERON) 7.5 mg tablet Take 7.5 mg by mouth once daily. 4 Active JANUMET XR 50-1,000 mg TM24 Take 1 tablet by mouth every afternoon. 4 Active spironolactone (ALDACTONE) 25 mg tablet Take 50 mg by mouth every morning. 4 Active cannabidiol, CBD, (CANNABIDIOL ORAL) Take 10 mg by mouth daily at bedtime. Active semaglutide (OZEMPIC) 1 mg/dose (2 mg/1.5 mL) pen Inject 1 mg subcutaneously one time a week. Active polyethylene glycol 3350 17 gram packet Take 17 g by mouth. 4 Active prochlorperazi ne (COMPAZINE) 10 mg tablet Take 1 tablet by mouth every 6 hours as needed. 100 tablet 2 03/06/2024 1:18 PM EDT 4 Active capecitabine (XELODA) 500 mg tablet Take 5 tablets (2,500 mg) by mouth two times a day. 14 days on 7 days off 140 tablet 5 06/23/2024 8:59 AM EST 4 Active Additional Information Patient not taking.Reported on 07/29/2024 ondansetron (ZOFRAN) 8 mg tabletIndicati ons:Rectal cancer (HCC) Take 1 tablet by mouth every 8 hours as needed for nausea/vomiting. 90 tablet 2 05/16/2024 2:21 PM EST 4 Active prochlorperazi ne (COMPAZINE) 10 mg tabletIndicati ons:Rectal cancer (HCC) Take 1 tablet by mouth every 6 hours as needed. 100 tablet 2 05/16/2024 2:21 PM EST 4 Active neomycin 500 mg tabletIndicati ons:Rectal cancer (HCC) Take 2 tablets by mouth at 6 pm, again at 7 pm and at 11 pm the evening prior to surgery 6 tablet 07/28/2024 12:45 PM EDT 5 Active metroNIDAZOLE (FLAGYL) 500 mg tabletIndicati ons:Rectal cancer (HCC) Take 1 tablet by mouth at 6 pm, another at 7 pm and again at 11 pm, the evening prior to surgery 3 tablet 07/28/2024 12:45 PM EDT 5 Active Active Problems Problem Noted Date Diagnosed Date Stage 3a chronic kidney disease 10/31/2023 Rectal cancer 10/16/2023 Hypertension Diabetes Encounters Date Type Department Care Team Description 08/14/2024 1:40 PM EDT Visit (SP) Office Hematology/Oncolog y [address] [place] [address] [place] [address] Richardson Beltran MD Malignant neoplasm of rectum (HCC) (Primary Dx); Type 2 diabetes mellitus with other specified complication, with long-term current use of insulin (HCC); Other depression; Wound cellulitis; Rectal cancer (HCC); Stage 3a chronic kidney disease (HCC) 08/14/2024 Travel 08/08/2024 Telephone Hematology/Oncolog y [address] [place] [address] [place] [address] Little Bowens, RN Care Coordination (Follow up appointment in 2 months) 08/07/2024 8:05 AM EDT Tumor Board Tumor Board [address] [place] [address] Tumor Board GI Colorectal 07/30/2024 Telephone Colorectal Surgery [facility] [address] [place] [address] Evans Garza MD Patient Update 07/30/2024 Orders Only Colorectal Surgery [facility] [address] [place] [address] Evans Garza MD Rectal cancer (HCC) (Primary Dx) 07/30/2024 Telephone Hematology/Oncolog y [address] [place], [place] [address] [place] [address] Little Bowens, RN Care Coordination (Clinical update) 07/29/2024 1:00 PM EDT Anesthesia Event [facility] Endoscopy - ENDO [address] [place] [address] Chema Jimenez, 07/29/2024 10:26 AM EDT - 07/29/2024 11:59 PM EDT Hospital Encounter [facility] Endoscopy - ENDO [address] [place] [address] Evans Garza MD Rectal cancer (HCC) [C20] Discharge Disposition: Home 07/24/2024 Telephone Colorectal Surgery [address] [address] Evans Garza MD Preparations For Surgery; Senior Construction Manager - Other 07/23/2024 Telephone Colorectal Surgery [address] [address] Evans Garza MD Preparations For Surgery; Senior Construction Manager - Other 07/23/2024 Patient Msg Colorectal Surgery [address] [address] Evans Garza MD ostomy education 07/23/2024 Patient Msg Colorectal Surgery [facility] [address] [place] [address] Evans Garza MD Flexible Sigmoidoscopy scheduled for 07/2907/22/2024 Patient Msg Colorectal Surgery [address] [address] Provider, Ccf surgery August [address] Garza 07/22/2024 Education Colorectal Surgery [facility] [address] [place] [address] Loyda Sinha, CIPRIANO Preparations For Surgery 07/22/2024 Orders Only Colorectal Surgery [facility] [address] [place], [place] [id number] Evans Garza MD Rectal cancer (HCC) (Primary Dx) from Last 3 Months Immunizations Immunization Administration Dates Next Due influenza (IIV3) vaccine, ag e 6 mo - 64 yr, trivalent (AFLURIA, FLULAVAL, FLUVIRIN, FLUZONE) 05/03/2017,02/16/2016,02/19/2015 influenza (IIV3) vaccine, ag e 6 mo - 64 yr, trivalent, PF (AFLURIA, FLUARIX, FLULAVAL, FLUVIRIN, FLUZONE) 02/10/2015 influenza (IIV3) vaccine, tr ivalent (AFLURIA, FLULAVAL, FLUVIRIN, FLUZONE) 02/10/2015 influenza (IIV3) vaccine, tr ivalent, PF (AFLURIA, FLUARIX, FLULAVAL, FLUVIRIN, FLUZONE) 02/11/2014 influenza (IIV4) vaccine, ag e 6 mo - 64 yr, quadrivalent (AFLURIA, FLULAVAL, FLUZONE) 02/11/2014 influenza (IIV4) vaccine, ag e 6 mo - 64 yr, quadrivalent, PF (AFLURIA, FLUARIX, FLULAVAL, FLUZONE) 05/03/2017,02/16/2016,02/19/2015 influenza (LAIV) vaccine, na bryan, unspecified formulation 05/03/2017 influenza vaccine, unspecified formulation 05/03 pneumococcal polysaccharide (PPV23) vaccine, 23 valent (PNEUMOVAX 23) 11/01/2016 respiratory syncytial virus (RSV) vaccine, bivalent (ABRYSVO) 01/02/2024 tetanus diphtheria pertussis (Tdap) vaccine, age 7+ yr (ADACEL, BOOSTRIX) 08/22/2019 zoster (RZV) vaccine, recomb inant (SHINGRIX) 04/30/2018,12/21/2017 Family History Medical History Relation Comments Hypertension Father Diabetes Maternal Grandfather Heart Attack Maternal Grandfather Uterine Cancer Maternal Grandmother Diabetes Mother Stroke Mother Heart Attack Paternal Grandfather Dementia Paternal Grandmother Relation Status Comments Father Maternal Grandfather Maternal Grandmother Mother Paternal Grandfather Paternal Grandmother Social History Tobacco Use Types Packs/Day Years Used Date Smoking Tobacco: Former Cigarettes Passive Smoke Exposure: Past Smokeless Tobacco: Never Tobacco Cessation:Counseling Given: Not Answered Alcohol Use Standard Drinks/Week Comments Yes 0 (1 standard drink = 0.6 oz pur e alcohol) occasional PHQ-2 Answer Date Recorded PHQ-2 score 0 11/21/2023 Area Deprivation Index Answer Date Krish rded National Score (1-100), lower number is lower ri sk 76 07/10/2023 State Score (1-10), lower number is lower risk 6 07/10/2023 Data from: https://www.neighborhoodatlas.medicine.[facility]/. Last address used for calculation [address] 07/10/2023 Comments No Sex and Gender Information Value Date Recorded Sex Assigned at Not on file Legal Sex Female 11:28 AM EDT Gender Identity Not on file Sexual Orientation Not on file Last Filed Vital Signs Vital Sign Reading Time Taken Comments Blood Pressure 165/92 08/14/2024 1:13 PM EDT Pulse 96 08/14/2024 1:13 PM EDT Temperature 36.2 C (97.2 F) 08/14/2024 1:13 PM EDT Respiratory Rate 16 08/14/2024 1:13 PM EDT Oxygen Saturation 94% 08/14/2024 1:13 PM EDT Inhaled Oxygen Concentration - - Weight 99 kg (218 lb 4.1 oz) 08/14/2024 1:13 PM EDT Height 172 cm (5' 7.72 ) 08/14/2024 1:13 PM EDT Body Mass Index 33.46 08/14/2024 1:13 PM EDT Plan of Treatment Upcoming Encounters Date Type Department Care Team (Latest Contact Info) Description 11/14/2024 3:20 PM EDT Appointment [facility] [place] [address] [place] [address] MRI RECTUM WWO 11/17/2024 1:00 PM EDT Office Visit [facility] [address] [place] [address] FOLLOW UP AFTER MRI 11/17/2024 1:40 PM EDT Visit (SP) Office Hematology/Oncology [address] [facility] [place] [address] Richardson Beltran MD [address] [facility] [place] [address] FOLLOW UP AFTER MRI - this day due to MAYANK being on vacation Health Maintenance Due Date Last Done Comments Al-19 Vaccine (#1) 1962 Diabetic Foot Exam 09/09/1967 Dilated Retinal Exam 09/09/1967 Cervical Cancer Screening 1968 Annual PCP Team Chronic Dise ase Visit 09/09/1975 Anxiety Screening 09/09/1975 BP Controlled (<130/80) 09/09/1975 Depression Screening 09/09/1975 Hepatitis C Screening 09/09/1975 LDL Cholesterol 09/09/1975 CT Colonography 2002 Cologuard (FIT-DNA) 2002 Fecal Occult Blood 2002 Pneumococcal Vaccine: 50+ (2 of 2 - PCV) 11/01/2017 11/01/2016 Mammogram Screening 08/07/2019 08/06/2018 Bone Density Screening 2022 Advance Directive Discussion 05/21/2024 HbA1C 11/06/2024 05/08/2024, 04/20, 12/27/2023, Additional history exists Urine Albumin:Creatinine Ratio 12/26/2024 12/27/2023 , 01/17/2023 Influenza Vaccine (Season Ended) 2025 05/03/2017, 05/03/2017, 05/03/2017, Additional history exists Serum Creatinine 08/14/2025 08/14/2024, , 07/08/2024, Additional history exists Sigmoidoscopy 07/29/2029 07/29/2024 DTaP,Tdap,Td Vaccine (2 - Td or Tdap) 08/21/2029 08/22/2019 Colonoscopy 06/26/2033 06/26/2023, 0210/2023, 05/25/2023, Additional history exists Colorectal Cancer Screening 06/26/2033 Shingrix Vaccine Completed 04/30/2018, 12/21/2017 RSV Vaccine Completed 01/02/2024 Procedures Procedure Name Priority Date/Time Associated Diagnosis Comments COMPREHENSIVE METABOLIC PANEL Routine 08/14/2024 1:03 PM EDT Rectal cancer (HCC) CBC + DIFF Routine 08/14/2024 1:03 PM EDT Rectal cancer (HCC) CEA BLD Routine 08/14/2024 1:03 PM EDT Rectal cancer (HCC) GLUCOSE, BLOOD (POC) Routine 07/29/2024 1:28 PM EDT SIGMOIDOSCOPY Routine 07/29/2024 1:16 PM EDT Rectal cancer (HCC) GLUCOSE, BLOOD (POC) Routine 07/29/2024 12:02 PM EDT PT ED PATIENT INFORMATION 07/23/2024 from Last 3 Months Results * (ABNORMAL) COMPREHENSIVE METABOLIC PANEL (08/14/2024 1:03 PM EDT) Pathologist [facility] Protein, Total 6.9 6.3 - 8.0 g/dL 08/14/2024 1:31 PM EDT [facility] Albumin 4.0 3.9 - 4.9 g/dL 08/14/2024 1:31 PM EDT [facility] Calcium, Total 10.0 8.5 - 10.2 mg/dL 08/14/2024 1:31 PM EDT [facility] Bilirubin, Total 0.8 0.2 - 1.3 mg/dL 08/14/2024 1:31 PM EDT [facility] Alkaline Phosphatase 137(H) 34 - 123 U/L 08/14/2024 1:31 PM EDT [facility] AST 11(L) 13 - 35 U/L 08/14/2024 1:31 PM EDT [facility] ALT 12 7 - 38 U/L 08/14/2024 1:31 PM EDT [facility] Glucose 504(H) 74 - 99 mg/dL 08/14/2024 1:31 PM EDT [facility] Comment: The [place] [employer] (ADA) provides guidance for cutoff values for fasting glucose and random glucose. The ADA defines fasting as no caloric intake for at least 8 hours. Fasting plasma glucose results between 100 to 125 mg/dL indicate increased risk for diabetes (prediabetes). Fasting plasma glucose results greater than or equal to 126 mg/dL meet the criteria for diagnosis of diabetes. In the absence of unequivocal hyperglycemia, results should be confirmed by repeat testing. In a patient with classic symptoms of hyperglycemia or hyperglycemic crisis, random plasma glucose results greater than or equal to 200 mg/dL meet the criteria for diagnosis of diabetes. Reference: Standards of Medical Care in Diabetes 2016, [place] [employer] Association. Diabetes Care. 2016.39(Suppl 1). BUN 14 7 - 21 mg/dL 08/14/2024 1:31 PM EDT [facility] Creatinine 0.91 0.58 - 0.96 mg/dL 08/14/2024 1:31 PM EDT [facility] Sodium 134(L) 136 - 144 mmol/L 08/14/2024 1:31 PM EDT [facility] Potassium 4.4 3.7 - 5.1 mmol/L 08/14/2024 1:31 PM EDT [facility] Chloride 96(L) 98 - 107 mmol/L 08/14/2024 1:31 PM EDT [facility] CO2 24 22 - 30 mmol/L 08/14/2024 1:31 PM EDT [facility] Anion Gap 14 8 - 15 mmol/L 08/14/2024 1:31 PM EDT [facility] Estimated Glomerular Filtration Rate 70 >=60 mL/min/1. 73m 08/14/2024 1:31 PM EDT [facility] Comment:Estimated Glomerular Filtration Rate (eGFR) is calculated using the 2020 CKD-EPI creatinine equation. This equation utilizes serum creatinine, sex, and age as parameters. The creatinine assay has traceable calibration to isotope dilution- mass spectrometry. Refer to KDIGO guidelines for clinical interpretation. In patients with unstable renal function, e.g. those with acute kidney injury, the eGFR may not accurately reflect actual GFR. Blood BLOOD SPECIMEN / Unknown Venipuncture / Unknown 08/14/2024 1:03 PM EDT 08/14/2024 1:03 PM EDT Richardson Beltran MD LABORATORY Final Result Performing Organization Address City/[facility]/ZIP Co de Phone Number [facility] [address] [place] [address] * CARCINOEMBRYONIC ANTIGEN (08/14/2024 1:03 PM EDT) CEA 2.8 <=2.9 ng/mL 08/15/2024 9:48 AM EDT [facility] Comment: Carcinoembryonic antigen test is used as an aid in monitoring response to treatment or recurrence in patients with established colorectal, breast, lung, prostatic, pancreatic, and ovarian carcinomas. Clinical correlation is required. The Carcinoembryonic antigen test was performed using the LINAGORAel DXI paramagnetic particle chemiluminescent immunoassay method. Results obtained with different assay methods or kits cannot be used interchangeably. Blood BLOOD SPECIMEN / Unknown Venipuncture / Unknown 08/14/2024 1:03 PM EDT 08/14/2024 1:03 PM EDT us Richardson Beltran MD LABORATORY Final Result [facility] [address] [place] [address], [place] * (ABNORMAL) COMPLETE BLOOD COUNT AND DIFFERENTIAL (08/14/2024 1:03 PM EDT) WBC 5.96 3.70 - 11.00 k/uL 08/14/2024 1:07 PM EDT [facility] RBC 4.49 3.90 - 5.20 m/uL 08/14/2024 1:07 PM EDT [facility] Hemoglobin 12.6 11.5 - 15.5 g/dL 08/14/2024 1:07 PM EDT [facility] Hematocrit 36.0 36.0 - 46.0 % 08/14/2024 1:07 PM EDT [facility] MCV 80.2 80.0 - 100.0 fL 08/14/2024 1:07 PM EDT [facility] MCH 28.1 26.0 - 34.0 pg 08/14/2024 1:07 PM EDT [facility] MCHC 35.0 30.5 - 36.0 g/dL 08/14/2024 1:07 PM EDT [facility] RDW-CV 12.7 11.5 - 15.0 % 08/14/2024 1:07 PM EDT [facility] Platelet Count 296 150 - 400 k/uL 08/14/2024 1:07 PM EDT [facility] MPV 8.9(L) 9.0 - 12.7 fL 08/14/2024 1:07 PM EDT [facility] Neutrophils % 79.3 % 08/14/2024 1:07 PM EDT [facility] Abs Neut 4.72 1.45 - 7.50 k/uL 08/14/2024 1:07 PM EDT [facility] Lymphocytes % 7.7 % 08/14/2024 1:07 PM EDT [facility] Abs Lymph 0.46(L) 1.00 - 4.00 k/uL 08/14/2024 1:07 PM EDT [facility] Monocytes % 6.7 % 08/14/2024 1:07 PM EDT [facility] Abs [place] 0.40 <0.87 k/uL 08/14/2024 1:07 PM EDT [facility] Eosinophils % 5.0 % 08/14/2024 1:07 PM EDT [facility] Abs Eosin 0.30 <0.46 k/uL 08/14/2024 1:07 PM EDT [facility] Basophils % 0.8 % 08/14/2024 1:07 PM EDT [facility] Abs Baso 0.05 <0.11 k/uL 08/14/2024 1:07 PM EDT [facility] Immature Granulocytes % 0.5 % 08/14/2024 1:07 PM EDT [facility] Abs Immature Gran 0.03 <0.10 k/uL 08/14/2024 1:07 PM EDT [facility] NRBC 0.0 /100 WBC 08/14/2024 1:07 PM EDT [facility] Absolute nRBC <0.01 <0.01 k/uL 08/14/2024 1:07 PM EDT [facility] Diff Type Auto 08/14/2024 1:07 PM EDT [facility] Blood BLOOD SPECIMEN / Unknown Venipuncture / Unknown 08/14/2024 1:03 PM EDT 08/14/2024 1:03 PM EDT us Richardson Beltran MD LABORATORY Final Result Performing Organization Address City/[facility]/ZIP Co de Phone Number [facility] [address] [place] [address] * (ABNORMAL) GLUCOSE, BLOOD (POC) (07/29/2024 1:28 PM EDT) Only the most recent of2 resultswithin the time period is included. [facility] Glucose, Point of Care 130(A) 74 - 99 mg/dL [facility] Comment: Location:[facility], [address] [place] [address], [facility] The Accu-Chek Inform II glucose meter has not been approved for testing on patients receiving intensive medical intervention or therapy and results from this point of care glucose test should not be used for patient management decisions in these cases. Inaccurate results may also occur from other interfering factors, such as N-acetylcysteine (blood concentrations of greater than 5mg/dL), galactose, extremes of hematocrit (<10 or >65), or high doses of ascorbic acid (vitamin C) greater than 3mg/dL. Consider alternate testing mechanisms (e.g. core lab, blood gas instrument) in the above situations. 07/29/2024 1:28 PM EDT us Chema Jimenez DO POC TESTING Final Resul t Performing Organization Address City/[facility]/ZIP Co de Phone Number [facility] POINT OF CARE [facility] [address] [address] [place], [place] * SIGMOIDOSCOPY (07/29/2024 1:16 PM EDT) Anatomical Region Laterality Modality Other 07/29/2024 12:3 9 PM EDT Narrative 07/29/2024 1:21 PM EDT [facility] Gastrointestinal Endoscopy Patient Name: Dayanna Riggins Procedure Date: 07/29/2024 12:39 PM Date of : 1955 Admit Type: Outpatient Age: 68 Room: [place] [address] Gender: Female Note Status: Finalized Attending MD: Evans Garza MD, [id number] Procedure: Flexible Sigmoidoscopy Indications: High risk colon cancer surveillance: Personal history of rectal cancer Providers: Evans Garza MD, Corine Watson, RN, Jaylin Oneil RN (Assisting Nurse), claudia Donaldson RN (assisting nurse orient) Patient Profile: Last Colonoscopy: within the past year. Referring Physician: Evans Garza MD (Referring MD) Medicines: Monitored Anesthesia Care Complications: No immediate complications. Procedure: Pre-Anesthesia Assessment: - Prior to the procedure, a History and Physical was performed, and patient medications, allergies and sensitivities were reviewed. The patient's tolerance of previous anesthesia was reviewed. - ASA Grade Assessment: II - A patient with mild systemic disease. After obtaining informed consent, the scope was passed under direct vision. The PCF [id number] was introduced through the anus and advanced to the sigmoid colon. The flexible sigmoidoscopy was accomplished without difficulty. The patient tolerated the procedure well. The quality of the bowel preparation was adequate. Moderate Sedation: MAC anesthesia was administered by the anesthesia team. Total Procedure Duration: 0 hours 8 minutes 22 seconds Findings: The perianal and digital rectal examinations were normal. Rectum- tattoo noted at level of middle rectal valve. There is a smooth scar noted at the site of previous tumor. There is not evidence of tumor. No ulceration present. Impression: - History of rectal cancer - Endoscopically it appears she had complete response to treatment Recommendation: - Discharge patient to home (ambulatory). - Resume previous diet. - will review case at multidisciplinary tumor board and discuss final recommendations in comparison to post-treatment MRI Procedure Code(s): --- Professional --- 19398, Sigmoidoscopy, flexible; diagnostic, including collection of specimen(s) by brushing or washing, when performed (separate procedure) Diagnosis Code(s): --- Professional --- Z85.048, Personal history of other malignant neoplasm of rectum, rectosigmoid junction, and anus CPT copyright 2020 [place] [employer]. All rights reserved. The codes documented in this report are preliminary and upon research executive review may be revised to meet current compliance requirements. Attending Participation: I personally performed the entire procedure. Scope In: 1:05:35 PM Scope Out: 1:13:57 PM MD Evans Vallejo MD 07/29/2024 1:19:20 PM This report has been signed electronically by Evans Garza MD Number of Addenda: 0 Note Initiated On: 07/29/2024 12:39 PM Estimated Blood Loss: Estimated blood loss: none. us Evans Garza MD DIGESTIVE DISEASE Final Resul t * PT ED PATIENT INFORMATION (07/23/2024) 07/23/2024 Narrative DANIEL - 08/23/2024 Provider PARMINDER your patient DAYANNA RIGGINS has not started their Daniel program, time has . Daniel program: PATIENT SAFETY INSTRUCTIONS FOR HEALTHCARE SETTINGS us Evans Garza MD DANIEL Final Result DANIEL from Last 3 Months Insurance [id number] DUAL COMPLETE H[facility] POS SNP Care Teams Senior Infrastructure Engineer Relationship Specialty Start Date End Date Keaton Peñaloza [address] [place] [address] PCP - General Internal Medicine 07/10/23 Yanick Cesar [address] [place] [address] Referring Fish Farm Manager 09/05/18 Pauline Fatima LSW Spring Fitter Helper 07/10/23 Little Bowens RN [address] [facility] [address] [place], [place] [id number] Specialty Senior Construction Manager Hematology/Oncology 09/19/23 Cailin Montero PA-C [address] [place] [address] Physician Coordinator Of Placement Hematology/Oncology 09/19/23 Richardson Beltran MD [address] [facility] [address] [place] [address] Physician Hematology/Oncology 01/04/24
--- OUTSIDE RECORDS SUMMARY | 2024-10-22 13:31 | XMS_ITS | Encounter Summary ---
Author Organization [facility] Address [address] [place] [address] Care Team Providers Care Weight Training Instructor Name Role Phone Yanick Cesar Unavailable Keaton Peñaloza Primary Care Provider [phone] Pauline Fatima Unavailable Unavailable Little Bowens RN Unavailable [phone] Cailin Montero PA-C Unavailable [phone] Richardson Beltran MD Unavailable [phone] Source Comments In the event this information is protected by the Federal Confidentiality of Alcohol and Drug AbusePatient Records regulations: The Federal rules restrict any use of the information to criminally investigate or prosecute any alcohol or drug abuse patient.[facility] Reason for Visit * Reason Comments Results Encounter Details Date Type Department Care Team (Late st Contact Info) Description 01/14/2024 Telephone Hematology/Oncology [address] [facility] [facility] [place] [address] Cailin Montero PA-C [address] [place] [address] Results Social History Tobacco Use Types Packs/Day Years [...] is lower risk 6 07/10/2023 Data from: https://www.neighborhoodatlas.[facility]/. Last address used for calculation [address] 07/10/2023 Comments No Sex and Gender Information Value Date Recorded Sex Assigned at Not on file Legal Sex Female 11:28 AM EDT Gender Identity Not on file Sexual Orientation Not on file documented as of this encounter Miscellaneous Notes * Telephone Encounter - Cailin Montero PA-C - 01/14/2024 8:44 AM EDT Please call patient and advise that her MRI rectum shows response but she may require additional treatment and she needs a follow up with Dr. Almaguer for KELECHI to further plan her future treatments. Cailin Motnero PA-C documented in this encounter Plan of Treatment Upcoming Encounters Date Type Department Care Team (Latest Contact Info) Description 11/14/2024 3:20 PM EDT Appointment [facility] [place] [address] [place] [address] MRI RECTUM WWO 11/17/2024 1:00 PM EDT Office Visit [facility] [address] [facility] [place] [address] FOLLOW UP AFTER MRI 11/17/2024 1:40 PM EDT Visit (SP) Office Hematology/Oncology [address] [place] [address] Richardson Beltran MD [address] [facility] [place] [place] [address] FOLLOW UP AFTER MRI - this day due to MAYANK being on vacation documented as of this encounter Visit Diagnoses Not on filedocumented in this encounter Care Teams Weight Training Instructor Relationship Specialty Start Date End Date Keaton Peñaloza [address] [place] [address] PCP - General Internal Medicine 07/10/23 Yanick Cesar [address] [place] [address] Referring Sales Management Intern 09/05/18 Pauline Fatima LSW Alley Tender 07/10/23 Little Bowens, RN [address] [facility] [place] [address] Specialty Manager Global Communications Hematology/Oncology 09/19/23 Cailin Montero PA-C [address] [facility] [place] [address] Physician Piper Installer Hematology/Oncology 09/19/23 Richardson Beltran MD [address] [facility] [place] [address] Physician Hematology/Oncology 01/04/24 documented as of this encounter
== END 2024-10-22 13:28 | disposition home or self-care (01) ==
LOC: WC 13:27
PROVIDERS: PCP Family Medicine; Visit Provider Physician Assistant
DX: I87.312 Chronic venous hypertension (idiopathic) with ulcer of left lower extremity (principal); L97.822 Non-pressure chronic ulcer of other part of left lower leg with fat layer exposed
CPT/HCPCS: 11043; A6213

== ENCOUNTER 2024-12-09 13:08 | Outpatient (OUT) | payer MEDICARE, MEDICAID, SELFPAY ==
--- OUTSIDE RECORDS SUMMARY | 2024-12-09 13:10 | XMS_ITS | Clinical Summary ---
Author Organization [facility] Address [address] [place] [address] Care Team Providers Care Machine Welder Name Role Phone Unavailable Primary Care Provider [...] insulin pen needle (Ultra John Insulin Pen Vernal) 32G x 4 mm misc Inject under the skin if needed Use as instructed Active glucose blood test strip 1 each by Other route if needed Use as instructed Active Continuous Glucose Sensor (FreeStyle Vik 2 Sensor) misc Active Continuous Glucose Machine Former (FreeStyle Vik 2 Harrells) device Active Apoaequorin 20 MG capsule Take [...]
--- OUTSIDE RECORDS SUMMARY | 2024-12-09 13:10 | XMS_ITS | Encounter Summary ---
Author Organization [facility] Address [address] [place] [address] Care Team Providers Care Hoop Riveting Machine Operator Name Role Phone Yanick Cesar Unavailable Keaton Peñaloza Primary Care Provider [phone] Pauline Fatima Unavailable Unavailable Little Bowens RN Unavailable [phone] Cailin Montero PA-C Unavailable [phone] Richardson Beltran MD Unavailable [phone] Source Comments In the event this information is protected by the Federal Confidentiality of Alcohol and Drug AbusePatient Records regulations: The Federal rules restrict any use of the information to criminally investigate or prosecute any alcohol or drug abuse patient.[facility] Reason for Visit * Reason Comments Appointment Appointment reminder call--- Encounter Details Date Type Department Care Team (Late st Contact Info) Description 06/30/2024 Telephone Radiology [address] [place] [address] Loyda Argueta Appointment (Appointment reminder [...] is lower risk 6 07/10/2023 Data from: https://www.neighborhoodatlas.medicine.[facility]/. Last address used for calculation [address] 07/10/2023 Comments No Sex and Gender Information Value Date Recorded Sex Assigned at Not on file Legal Sex Female 11:28 AM EDT Gender Identity Not on file Sexual Orientation Not on file documented as of this encounter Plan of Treatment Upcoming Encounters Date Type Department Care Team (Latest Contact Info) Description 03/02/2025 12:45 PM EDT Appointment Radiology Pet CT [address] [facility] [place] [address] Ct Chest without contrast 03/19/2025 3:20 PM EDT Appointment [facility] [place] [address] [place] [address] MRI Rectum w/wo contrast 03/23/2025 2:15 PM EST Office Visit [facility] Laboratory [address] [place] [address] [place] [address] 4 week follow up for MRI and Ct results 03/23/2025 2:40 PM EST Visit (SP) Office Hematology/Oncology [address] [place] [address] [place] [address] Richardson Beltran MD [address] [facility] [address] 4 week follow up for MRI and Ct results documented as of this encounter Visit Diagnoses Not on filedocumented in this encounter Care Teams Hoop Riveting Machine Operator Relationship Specialty Start Date End Date Keatno Peñaloza [address] [place] [address] PCP - General Internal Medicine 07/10/23 Yanick Cesar [address] [place] [address] Referring Tax Compliance Agent 09/05/18 Pauline Fatima LSW Director Security Risk Management 07/10/23 Little Bowens, RN [address] [place] [address] [place] [address] Specialty Stud Dairy Cattle Farmer Hematology/Oncology 09/19/23 Cailin Montero, PA-C [address] [place] [address] [place] [address] Physician Cv Tech Hematology/Oncology 09/19/23 Richardson Beltran MD [address] [place] [address] [place] [address] Physician Hematology/Oncology 01/04/24 documented as of this encounter
--- OUTSIDE RECORDS SUMMARY | 2024-12-09 13:10 | XMS_ITS | Encounter Summary ---
Author Organization [facility] Address [facility] [place] [address] Care Team Providers Care Memory Care Director Name Role Phone Yanick Cesar Unavailable Keaton Peñaloza Primary Care Provider [phone] Pauline Fatima Unavailable Unavailable Little Bowens RN Unavailable Cailin Montero PA-C Unavailable [phone] Richardson Beltran MD Unavailable [phone] Source Comments In the event this information is protected by the Federal Confidentiality of Alcohol and Drug AbusePatient Records regulations: The Federal rules restrict any use of the information to criminally investigate or prosecute any alcohol or drug abuse patient.[facility] Encounter Details Date Type Department Care Team (Late st Contact Info) Description 06/29/2024 [place] [address] Provider, [facility]cf MRI Screening Questionnaire Completion Required [...] is lower risk 6 07/10/2023 Data from: https://www.neighborhoodatlas.medicine.[facility].edu/. Last address used for calculation [...] PM EDT Appointment Radiology Pet CT [address] [facility] [place] [place] [address] Ct Chest without contrast 03/19/2025 3:20 PM EDT Appointment [facility] [place] [address] [place] [address] MRI Rectum w/wo contrast 03/23/2025 2:15 PM EST Office Visit [facility] [address] [place] [address] [place] [address] 4 week follow up for MRI and Ct results 03/23/2025 2:40 PM EST Visit (SP) Office Hematology/Oncology [address] [place] [address] [place] [address] Richardson Beltran MD [address] [facility] [place] [address] 4 week follow up for MRI and Ct results documented as of this encounter Visit Diagnoses Not on filedocumented in this encounter Care Teams Memory Care Director Relationship Specialty Start Date End Date Keaton Peñaloza [address] [place] [address] PCP - General Internal Medicine 07/10/23 Yanick Cesar [address] [place] [address] Referring Kosher Sealer 09/05/18 Pauline Fatima LSW Hypoid Gear Tester 07/10/23 Little Bowens, RN [address] [facility] [place] [address] Specialty Mill Roll Rewinder Hematology/Oncology 09/19/23 Cailin Montero PA-C [address] [facility] [place] [address] Physician Biomass Boiler Operator Hematology/Oncology 09/19/23 Richardson Beltran MD [address] [facility] [place] [address] Physician Hematology/Oncology 01/04/24 documented as of this encounter
--- OUTSIDE RECORDS SUMMARY | 2024-12-09 13:10 | XMS_ITS | Encounter Summary ---
Author Organization [facility] Address [facility] [place] [address] Care Team Providers Care Orthopaedic Technologist Name Role Phone Yanick Cesar Unavailable Keaton Peñaloza Primary Care Provider [phone] Pauline Fatima Unavailable Unavailable Little Bowens RN Unavailable [phone] Cailin Montero PA-C Unavailable [phone] Richardson Beltran MD Unavailable [phone] Source Comments In the event this information is protected by the Federal Confidentiality of Alcohol and Drug AbusePatient Records regulations: The Federal rules restrict any use of the information to criminally investigate or prosecute any alcohol or drug abuse patient.[facility] Encounter Details Date Type Department Care Team (Late st Contact Info) Description 01/08/2024 [place] [address] Provider, Ccf MRI Screening Questionnaire Completion Required [...] is lower risk 6 07/10/2023 Data from: https://www.neighborhoodatlas.medicine.[facility].edu/. Last address used for calculation Tomasa ORTEZ [...] PM EDT Appointment Radiology Pet CT [address] [facility] [place] [address] Ct Chest without contrast 03/19/2025 3:20 PM EDT Appointment [facility] [place] [address] [place] [address] MRI Rectum w/wo contrast 03/23/2025 2:15 PM EST Office Visit [facility] [address] [place] [address] [place] [address] 4 week follow up for MRI and Ct results 03/23/2025 2:40 PM EST Visit (SP) Office Hematology/Oncology [address] [place] [address] [place] [address] Richardson Beltran MD [address] [place] [place] [address] 4 week follow up for MRI and Ct results documented as of this encounter Visit Diagnoses Not on filedocumented in this encounter Care Teams Orthopaedic Technologist Relationship Specialty Start Date End Date Keaton Peñaloza [address] [place] [address] PCP - General Internal Medicine 07/10/23 Yanick Cesar [address] [place] [address] Referring Propeller Layout Worker 09/05/18 Pauline Fatima LSW Machined Parts Metal Sprayer 07/10/23 Little Bowens, RN [address] [facility] [place] [address] Specialty Book Sewer Hematology/Oncology 09/19/23 Cailin Montero PA-C [address] [facility] [place] [address] Physician Animal Health Technician Hematology/Oncology 09/19/23 Richardson Beltran MD [address] [facility] [place] [address] Physician Hematology/Oncology 01/04/24 documented as of this encounter
--- OUTSIDE RECORDS SUMMARY | 2024-12-09 13:10 | XMS_ITS | Encounter Summary ---
Author Organization [facility] Address [address] [place] [address] Care Team Providers Care Kayak Maker Name Role Phone Yanick Cesar Unavailable Keaton Peñaloza Primary Care Provider [phone] Pauline Fatima Unavailable Unavailable Little Bowens RN Unavailable [phone] Cailin Montero PA-C Unavailable [phone] Richardson Beltran MD Unavailable [phone] Source Comments In the event this information is protected by the Federal Confidentiality of Alcohol and Drug AbusePatient Records regulations: The Federal rules restrict any use of the information to criminally investigate or prosecute any alcohol or drug abuse patient.[facility] Encounter Details Date Type Department Care Team (Late st Contact Info) Description 07/22/2024 Patient Msg Colorectal Surgery [address] [place] [id number] Provider, [facility] surgery August [address] Garza [...] is lower risk 6 07/10/2023 Data from: https://www.neighborhoodatlas.medicine.[facility]/. Last address used for calculation [address] [...] PM EDT Appointment Radiology Pet CT [address] [place] [address] Ct Chest without contrast 03/19/2025 3:[address] [facility] [place] [address] [place] [address] MRI Rectum w/wo contrast 03/23/2025 2:15 PM EST Office Visit [facility] Laboratory [address] [place] [address] [place] [address] 4 week follow up for MRI and Ct results 03/23/2025 2:40 PM EST Visit (SP) Office Hematology/Oncology [address] [place] [address] [place] [address] Richardson Beltran MD [address] [place] [address] 4 week follow up for MRI and Ct results documented as of this encounter Visit Diagnoses Not on filedocumented in this encounter Care Teams Kayak Maker Relationship Specialty Start Date End Date Keaton Peñaloza [address] [place] [address] PCP - General Internal Medicine 07/10/23 Yancik Cesar [address] [place] [address] Referring Drier Helper 09/05/18 Pauline Fatima LSW Swatcher 07/10/23 Little Bowens, RN [address] [place] [address] [place] [address] Specialty Fire Hose Curer Hematology/Oncology 09/19/23 Cialin Montero PA-C [address] [place] [address] [place] [address] Physician Cattle Sorter Hematology/Oncology 09/19/23 Richardson Beltran MD [address] [place] [address] [place] [address] Physician Hematology/Oncology 01/04/24 documented as of this encounter
--- OUTSIDE RECORDS SUMMARY | 2024-12-09 13:10 | XMS_ITS | Encounter Summary ---
Author Organization [facility] Address [facility] [place] [address] Care Team Providers Care Postal Superintendent Name Role Phone Yanick Cesar Unavailable Keaton Peñaloza Primary Care Provider [phone] Pauline Fatima Unavailable Unavailable Little Bowens RN Unavailable [phone] Cailin Montero PA-C Unavailable [phone] Richardson Beltran MD Unavailable [phone] Source Comments In the event this information is protected by the Federal Confidentiality of Alcohol and Drug AbusePatient Records regulations: The Federal rules restrict any use of the information to criminally investigate or prosecute any alcohol or drug abuse patient.[facility] Encounter Details Date Type Department Care Team (Late st Contact Info) Description 11/12/2024 [place] [address] Provider, Ccf MRI Screening Questionnaire Completion Required [...] is lower risk 6 07/10/2023 Data from: https://www.neighborhoodatlas.medicine.[facility].edu/. Last address used for calculation Tomasa ORTEZ [...] PM EDT Appointment Radiology Pet CT [address] [facility] [place] [address] Ct Chest without contrast 03/19/2025 3:20 PM EDT Appointment [facility] [place] [address] [place] [address] MRI Rectum w/wo contrast 03/23/2025 2:15 PM EST Office Visit [facility] [address] [place] [address] [place] [address] 4 week follow up for MRI and Ct results 03/23/2025 2:40 PM EST Visit (SP) Office Hematology/Oncology [address] [place] [address] [place] [address] Richardson Beltran MD [address] [facility] [address] 4 week follow up for MRI and Ct results documented as of this encounter Visit Diagnoses Not on filedocumented in this encounter Care Teams Postal Superintendent Relationship Specialty Start Date End Date Keaton Peñaloza [address] [place] [address] PCP - General Internal Medicine 07/10/23 Yanick Cesar [address] [place] [address] Referring Registered Dental Assistant Rda 09/05/18 Pauline Fatima LSW Environmental Health Technologist 07/10/23 Little Bowens, RN [address] [facility] [place] [address] Specialty Nurse Sexual Assault Hematology/Oncology 09/19/23 Cailin Montero PA-C [address] [facility] [place] [address] Physician Helicopter Dispatcher Hematology/Oncology 09/19/23 Richardson Beltran MD [address] [facility] [place] [address] Physician Hematology/Oncology 01/04/24 documented as of this encounter
--- OUTSIDE RECORDS SUMMARY | 2024-12-09 13:10 | XMS_ITS | Encounter Summary ---
Author Organization [facility] Address [address] [place] [address] Care Team Providers Care Product Demonstrator Name Role Phone Yanick Cesar Unavailable Keaton Peñaloza Primary Care Provider [phone] Pauline Fatima PLATER HOT DIP Unavailable Unavailable Little Bowens RN Unavailable [phone] Arturo Mcdonald MD Unavailable [phone] Cailin Montero PA-C Unavailable [phone] Richardson Beltran MD Unavailable [phone] Source Comments In the event this information is protected by the Federal Confidentiality of Alcohol and Drug AbusePatient Records regulations: The Federal rules restrict any use of the information to criminally investigate or prosecute any alcohol or drug abuse patient.[facility] Encounter Details Date Type Department Care Team (Late st Contact Info) Description 10/19/2023 Patient Msg Dentistry [address] [place], [place] [id number] Provider, Ccf Call to Verify Dental Insurance [...] is lower risk 6 07/10/2023 Data from: https://www.neighborhoodatlas.medicine.[facility].edu/. Last address used for calculation Tomasa COMBS [...] PM EDT Appointment Radiology Pet CT [address] [place] [address] Ct Chest without contrast 03/19/2025 3:20 PM EDT Appointment [facility] [place] [address] [place], [place] [address] MRI Rectum w/wo contrast 03/23/2025 2:15 PM EST Office Visit [facility] Laboratory [address] [place] [address] [place] [address] 4 week follow up for MRI and Ct results 03/23/2025 2:40 PM EST Visit (SP) Office Hematology/Oncology [address] [place] [address] [place] [address] Richardson Beltran MD [address] [facility] [place] [address] 4 week follow up for MRI and Ct results documented as of this encounter Visit Diagnoses Not on filedocumented in this encounter Care Teams Product Demonstrator Relationship Specialty Start Date End Date Keaton Peñaloza [address] [place] [address] PCP - General Internal Medicine 07/10/23 Yanick Cesar [address] [place] [address] Referring Oil Separator 09/05/18 Pauline Fatima, PLATER HOT DIP Reliability Specialist 07/10/23 Little Bowens, RN [address] [facility] [place] [address] Specialty Lumber Stacker Hematology/Oncology 09/19/23 Arturo Mcdonald MD [address] [facility] [place] [address] Physician Hematology/Oncology 09/19/23 01/03/24 Cailin Montero PA-C [address] [place] [address] [place] [address] Physician Epic Beacon Analyst Hematology/Oncology 09/19/23 Richardson Beltran MD [address] [place] [address] [place] [address] Physician Hematology/Oncology 01/04/24 documented as of this encounter
--- OUTSIDE RECORDS SUMMARY | 2024-12-09 13:10 | XMS_ITS | Clinical Summary ---
Author Organization Celect tem Address [id number] [address] [place] [address] Care Team Providers Care Filter Washer And Presser Name Role Phone MarissacandiceKeaton denis DO Primary Care Provider [phone] Allergies Active Allergy Reactions Criticality Noted Date Comments Codeine Nausea 10/11/2016 Tramadol Nausea Low 10/17/2018 Medications clobetasoL (TEMOVATE) 0.05 % creamIndications: Lichen sclerosus Apply 1 Application topically in the morning and 1 Application before bedtime. 30 g 024 Active pen needle, diabetic (BD ULTRA-FINE MARIA C PEN NEEDLE) 32 gauge x 5/32 needleIndications :Type 2 diabetes mellitus without complication, with long-term current use of insulin ([facility]) Use to inject insulin four times daily 400 each 1 024 Active irbesartan (AVAPRO) 300 mg tabletIndications :Essential hypertension Take 1 tablet by mouth every day 90 tablet 1 025 Active aspirin 81 mgIndications:Typ e 2 diabetes mellitus without complication, with long-term current use of insulin ([facility]) Take 1 tablet by mouth every day 90 tablet 3 025 Active atorvastatin (LIPITOR) 40 mg tabletIndications :Mixed hyperlipidemia Take 1 tablet by mouth every day 90 tablet 1 025 Active busPIRone (BUSPAR) 10 mg tabletIndications :Panic attack as reaction to stress Take 1 tablet by mouth every day 30 tablet 5 025 Active amLODIPine (NORVASC) 10 mg tabletIndications :Essential hypertension Take 1 tablet by mouth every evening 30 tablet 5 025 Active ferrous sulfate (FeroSuL) 325 (65 FE) MG tabletIndications :Iron deficiency Take 1 tablet by mouth every day 30 tablet 5 025 Active albuterol (PROVENTIL HFA;VENTOLIN HFA) 90 mcg/actuation inhalerIndication s:Reactive airway disease with acute exacerbation, unspecified asthma severity, unspecified whether persistent Inhale 2 puffs every 4 (four) hours as needed for wheezing. 18 g 025 Active butalbital-acetam inophen-caff (FIORICET, ESGIC) 50-325-40 mg per tablet Take 1 tablet by mouth every 4 (four) hours as needed for headaches. 10 tablet 025 Active blood sugar diagnostic (RELL BLOOD GLUCOSE TEST STRIP) strip 1 each by other route. Active insulin lispro (HumaLOG) 100 unit/mL insulin pen Inject under the skin. Active OZEMPIC 2 mg/dose (8 mg/3 mL) pen injectorIndicatio ns:Type 2 diabetes mellitus with microalbuminuria, with long-term current use of insulin ([facility]) Dial and inject 2 mg under the skin weekly 9 mL 11 025 Active insulin glargine (LANTUS SOLOSTAR U-100 INSULIN) 100 unit/mL (3 mL) insulin penIndications:Ty pe 2 diabetes mellitus without complication, with long-term current use of insulin ([facility]) Inject 60 Units under the skin nightly. 45 mL 1 025 Active meclizine (ANTIVERT) 25 mg tabletIndications :Benign paroxysmal positional vertigo, unspecified laterality Take 1 tablet by mouth every day as needed for dizziness 30 tablet 2 025 Active insulin glargine (LANTUS SOLOSTAR U-100 INSULIN) 100 unit/mL (3 mL) insulin penIndications:Ty pe 2 diabetes mellitus without complication, with long-term current use of insulin ([facility]) Inject 60 Units under the skin nightly. 45 mL 1 024 2024 Discontinued(R eorder) semaglutide (OZEMPIC) 2 mg/dose (8 mg/3 mL) pen injectorIndicatio ns:Type 2 diabetes mellitus with microalbuminuria, with long-term current use of insulin ([facility]) Dial and inject 2 mg under the skin weekly 9 mL 025 2024 Discontinued meclizine (ANTIVERT) 25 mg tabletIndications :Benign paroxysmal positional vertigo, unspecified laterality Take 1 tablet (25 mg total) by mouth daily as needed for dizziness. 30 tablet 025 2024 Discontinued Active Problems Problem Noted Date Diagnosed Date Hypokalemia 07/31/2023 Atrial fibrillation with rapid ventricular respo nse 07/30/2023 Rectal adenocarcinoma 07/30/2023 Rectal mass 05/25/2023 Rectal bleeding 05/11/2023 Hypertension 03/19/2023 Type 2 diabetes mellitus wit h microalbuminuria, with long-term current use of insulin 03/19/2023 Esophageal obstruction due to food impaction 01/2023 Food bolus obstruction of intestine 05/29/2022 Overview (05/30/2022): Added automatically from request for surgery [id number] COVID-19 03/21/2021 Squamous cell carcinoma of vulva 10/29/2019 Carcinoma of vulva, FIGO stage IB 11/01/2018 Vulvar lesion 10/21/2018 Primary osteoarthritis of left knee 11/13/2016 Encounters Date Type Department Care Team Description 12/09/2024 Refill [facility] [address] [place] [phone] Keaton Peñaloza, Benign paroxysmal positional vertigo, unspecified laterality 12/02/2024 Refill [facility] [address] [place] [phone] Kassi Rosado CMA Type 2 diabetes mellitus without complication, with long-term current use of insulin ([facility]) 11/28/2024 Refill [facility] [address] [place] [phone] Keaton Peñaloza DO Type 2 diabetes mellitus with microalbuminuria, with long-term current use of insulin ([facility]) 11/24/2024 Telephone [facility] [address] [place] [phone] Yolanda Roth, [facility] 11/11/2024 Telephone [facility] [address] [place] [address] Joanna Rtohmayelin, [facility] 11/07/2024 Refill [facility] [address] [place] [address] Kassi Rosado, [facility] Benign paroxysmal positional vertigo, unspecified laterality 11/06/2024 Telephone [facility] [address] [place] [address] Kassi Rosado, [facility] 11/05/2024 1:00 PM EDT Office Visit [facility] [address] [place] [address] Keaton Peñaloza, Type 2 diabetes mellitus with microalbuminuria, with long-term current use of insulin ([facility]) (Primary Dx); Depression, unspecified depression type; Mixed hyperlipidemia 11/05/2024 Orders Only [facility] [address] [place] [address] Keaton Peñaloza DO 11/02/2024 11:32 AM EDT - 11/02/2024 1:00 PM EDT Emergency [facility] [address] [place] [address] Evangelista Stone MD Reactive airway disease with acute exacerbation, unspecified asthma severity, unspecified whether persistent (Primary Dx); Viral URI with cough; Hypertension, unspecified type Discharge Disposition: Home 11/02/2024 Travel 11/02/2024 Refill [facility] [address] [place] [address] Keaton Peñaloza, Panic attack as reaction to stress; Essential hypertension; Iron deficiency 10/30/2024 3:00 PM EDT Office Visit [facility] [address] [place] [address] Keaton Peñaloza DO Encounter for subsequent annual wellness visit (AWV) in Medicare patient (Primary Dx); PAF (paroxysmal atrial fibrillation) ([facility]); Encounter for screening mammogram for malignant neoplasm of breast 10/30/2024 Travel 10/24/2024 Refill [facility] [address] [place] [address] Keaton Peñaloza, Type 2 diabetes mellitus without complication, with long-term current use of insulin ([facility]) 10/08/2024 Telephone [facility] [address] [place] [address] Yolanda Roth, [facility] 10/03/2024 Refill [facility] [address] [place] [address] Keaton Peñaloza DO Benign paroxysmal positional vertigo, unspecified laterality 09/10/2024 Refill [facility] [address] [place] [address] Keaton Peñaloza DO Benign paroxysmal positional vertigo, unspecified laterality from Last 3 Months Immunizations Immunization Administration Dates Next Due Influenza (IM) Preservative Free 02/10/2015,01/20 Influenza, Im Trivalent Preservative ,02/16/2016,02/19/2015,02/10 Influenza, Injectable, Quadrivalent 02/11/2014 Influenza, Injectable, quadr ivalent (PF) 05/03/2017,02/16/2016,02/19/2015 Pneumococcal Polysaccharide 11/01/2016 RSV, bivalent, protein subun it RSVpreF, diluent reconstituted, 0.5 mL, PF 01/02/2024 Tdap 08/22/2019 Zoster Vaccine Recombinant 04/30/2018,12/21/2017 Family [...] Date Smoking Tobacco: Former Cigarettes Q uit: 1975 Smokeless Tobacco: Never Tobacco Cessation:Counseling Given: Not Answered Comments:smoked for 1 year when was age 18 Alcohol Use Standard Drinks/Week Comments Yes 1 (1 standard drink = 0.6 oz pur e alcohol) socially [employer] Utilities Answer Date Recorded In the past 12 months has th e electric, gas, oil, or water company threatened to shut off services in your home? No 10/30/2024 Social Connection and Isolat ion Panel [NHANES] Answer Date Recorded In a typical week, how many times do you talk on the phone with family, friends, or neighbors? More than three times a week 10/30/2024 How often do you get togethe r with friends or relatives? Three times a week 10/30/2024 How often do you attend [facility] or voodoo services? More than 4 times per year 10/30/2024 Do you belong to any clubs o r organizations such as jainism groups, unions, fraternal or athletic groups, or school groups? No 10/30/2024 How often do you attend meet ings of the clubs or organizations you belong to? Never 10/30/2024 Are you , , di vorced, , never , or living with a partner? 10/30/2024 AUDIT-C Answer Date Recorded Q1: How often [...] food, housing, medical care, and heating? Hard 10/30/2024 PHQ-2 Answer Date Recorded Total Score 0 11/05/2024 [facility] ional [facility] - Occupational Stress Questionnaire Answer Date Recorded Do you feel stress - tense, restless, nervous, or anxious, or unable to sleep at night because your mind is troubled all the time - these days? To some extent 10/30/2024 Exercise Vital Sign Answer Date Recorde d On average, how many days pe r week do you engage in moderate to strenuous exercise (like a brisk walk)? 0 days 10/30/2024 On average, how many minutes do you engage in exercise at this level? 0 min 10/30/2024 PRAPARE - Transportation Answer Date Re corded In the past 12 months, has l ack of transportation kept you from medical appointments or from getting medications? No 10/19 In the past 12 months, has l ack of transportation kept you from meetings, work, or from getting things needed for daily living? No 10/30/2024 Housing Instability Answer Date Recorde d Are [...] Recorded Do you need help finding a [facility] career center and/or a training program? No 02/27/2023 Hunger Screening Answer Date Recorded Within the past 12 months we worried whether our food would run out before we got money to buy more. Sometimes True 025 Within the past 12 months th e food we bought just didn't last and we didn't have money to get more. Sometimes True 11/05/2024 Purpose - Life Answer Date Recorded I have a purpose and direction in my life. Somew hat Agree 02/27/2023 Comments No Sex and Gender Information Value Date Recorded Sex Assigned at Not on file Legal Sex Female 11:24 AM EDT Gender Identity Not on file Sexual Orientation Not on file Last Filed Vital Signs Vital Sign Reading Time Taken Comments Blood Pressure 140/60 11/05/2024 1:08 PM EDT Pulse 81 11/05/2024 1:08 PM EDT Temperature 36.6 C (97.9 F) 11/05/2024 1:08 PM EDT Respiratory Rate 20 11/05/2024 1:08 PM EDT Oxygen Saturation 96% 11/05/2024 1:08 PM EDT Inhaled Oxygen Concentration - - Weight 97.6 kg (215 lb 3.2 oz) 11/05/2024 1:08 P M EDT Height 170.2 cm (5' 7.01 ) 11/05/2024 1:08 PM ED T Body Mass Index 33.7 11/05/2024 1:08 PM EDT Plan of Treatment Upcoming Encounters Date Type Department Care Team (Late st Contact Info) Description 02/05/2025 1:30 PM EDT Office Visit [facility] [address] [place] [address] Keaton Peñaloza DO [address] [place] [address] Health Maintenance Due Date Last Done Comments Adult BMI Follow Up Plan 09[birth year]09/1975 Diabetic Ophthalmology Exam 09/26/2024 09/27/2023 Influenza Vaccine 01/19/2025 05/03/2017, , 02/16/2016, Additional history exists Medicare Annual Wellness Visit 10/30/2025 10/30/2024 , 02/27/2023 Adult BMI Screening 11/05/2025 11/05/2024 Depression Screening 11/05/2025 11/05/2024 Diabetic Foot Exam 11/05/2025 11/05/2024, 01/17/2023 Fall Risk Screening 11/05/2025 11/05/2024 Tobacco Screening 11/05/2025 11/05/2024 DTaP,Tdap and Td Vaccines (2 - Td [...] self care. Medical Devices Implanted Type Area Energy Efficient Site Manager Device Identifier Shelf Expiration Date Model / Serial / Lot Cement Bn Palacos Radpq 40g Rpl [id number] - Sna - [id number] Implanted:Qty : 2 on 11/13/2016 by Keaton Gibson DO at [facility] Cement Left: Knee [employer] 04/19/202141-1649-976- 01 / NA / [id number] Sys Bn Cmnt Feroz Quik-Use - [id number] Implanted:Qty : 1 on 11/13/2016 by Keaton Gibson DO at [facility] Cement Left: Knee [employer] 11/13/2016 [id number] / NA / NA Description:only bone pick n ot an implant Cmpt Fem E Kn Lt Lpsflx Gndr Rpl [id number] - [id number] Implanted:Qty : 1 on 11/13/2016 by Keaton Gibson DO at [facility] Orthopedic Implant Left: Knee [employer] [id number] 08/18/2026 [id number] / NA / [id number] Cmpt Ptlr Std 9mm 35mm Nxgn Rpl [id number] - [id number] Implanted:Qty : 1 on 11/13/2016 by Keaton Gibson DO at [facility] Orthopedic Implant Left: Knee [employer] [id number] 09/17/202462-8915-134- 35 / NA / [id number] Ins Artc 5-6 E-F 10mm Kn Fx Rpl [id number] - [id number] Implanted:Qty : 1 on 11/13/2016 by Keaton Gibson DO at [facility] Orthopedic Implant Left: Knee [employer] [id number] 09/17/202138-7844-211- 10 / NA / [id number] Plt Tib [id number] Nxgn Opt Kn Sz5 Rpl [id number] - [id number] Implanted:Qty : 1 on 11/13/2016 by Keaton Gibson DO at [facility] Plate Left: Knee [employer] [id number] 05/20/2026 [id number] 01 / NA / [id number] Explanted Type Area Energy Efficient Site Manager Device Identifier Shelf Expiration Date Model / Serial / Lot Scr Bn 35mm 6.5mm St Noel Hip Rpl [id number] - [id number] Explanted:Qty: 2 on 11/13/2016 by Keaton Gibson, DO at [facility] Screw Left: Knee [employer] [id number] 07/18/2026 [id number] / / [id number] Scr Gd 48mm Qd-Spr Kn Hd Mis - [id number] Explanted:Qty: 2 on 11/13/2016 by Keaton Gibson DO at [facility] Screw Left: Knee [employer] [id number] 09/17/2026 [id number] / NA / [id number] Procedures Procedure Name Priority Date/Time Associated Diagnosis Comments HC DIRECT LDL Routine 11/05/2024 1:48 PM EDT Type 2 diabetes mellitus with microalbuminuria, with long-term current use of insulin ([facility]) COMPREHENSIVE METABOLIC PANEL Routine 11/05/2024 1:48 PM EDT Type 2 diabetes mellitus with microalbuminuria, with long-term current use of insulin ([facility]) HEMOGLOBIN A1C Routine 11/05/2024 1:48 PM EDT Type 2 diabetes mellitus with microalbuminuria, with long-term current use of insulin ([facility]) LIPID PROFILE Routine 11/05/2024 1:48 PM EDT Type 2 diabetes mellitus with microalbuminuria, with long-term current use of insulin ([facility]) MICROALBUMIN / CREATININE URINE RATIO Routine 11/05/2024 1:48 PM EDT Type 2 diabetes mellitus with microalbuminuria, with long-term current use of insulin ([facility]) SARS/FLU A+B/RSV BY NAAT/MOLECULAR (M4RT COLLECTION TUBE) STAT 11/02/2024 11:36 AM EDT HM DIABETES EYE EXAM Routine 09/27/2023 1:46 PM EDT HIGH RISK HPV W/ZANE Routine 06/18/2023 5:35 AM EST Cervical smear, as part of routine gynecological examination from Last 3 Months or Most Recently Relevant to Health Maintenance Results * Rdldl Direct Ldl (11/05/2024 1:48 PM EDT) DIRECT LDL 87 <=130 mg/dL 11/05/2024 8:17 PM EDT [facility] Comment: LDL <100 mg/dL - Desirable LDL 130-159 mg/dL - Borderline High Risk LDL >160 mg/dL - High Risk Blood Venous blood / Unknown 11/05/2024 1:48 PM EDT 11/05/2024 1:48 PM EDT Keaton Peñaloza DO LAB ORDERABLES Final Result [facility] [address] [place] [address], [place] [phone] * (ABNORMAL) Microalbumin - Albumin: Creatinine Urine Ratio (11/05/2024 1:48 PM EDT) URINE CREATININE,RDM 160.31 mg/dL 11/05/2024 7:22 PM EDT [facility] MALB/CREAT RATIO 671.8(H) 0.0 - 30.0 mg/g 11/05/2024 7:22 PM EDT [facility] MICROALBUMIN, URINE 107.7(H) 0.0 - 1.9 mg/dL 11/05/2024 7:22 PM EDT [facility] Urine Urine specimen collection, clean catch / Unknown 11/05/2024 1:48 PM EDT 11/05/2024 1:48 PM EDT us Keaton Peñaloza DO URINE ORDERABLES Final Result [facility] [address] [place] [address], * (ABNORMAL) Hemoglobin A1c (11/05/2024 1:48 PM EDT) HEMOGLOBIN A1C 13.3(H) 4.4 - 5.6 % 11/05/2024 9:50 PM EDT [facility] Comment: ADA Guidelines Result HgbA1c Normal : less than 5.7 % Prediabetes : 5.7 % to 6.4 % Diabetes : > 6.4 % Use with caution in patients with abnormal hemoglobin variants as the half-life of red blood cells and in vivo glycation rates are affected. EST. AVERAGE GLUCOSE 335 mg/dL 11/05/2024 9:50 PM EDT [facility] Blood Venous blood / Unknown 11/05/2024 1:48 PM EDT 11/05/2024 1:48 PM EDT Keaton Peñaloza DO LAB BLOOD ORDERABLES Final Resul t [facility] [address] [place] [address], * (ABNORMAL) Lipid profile (11/05/2024 1:48 PM EDT) CHOLESTEROL 165 150 - 200 mg/dL 11/05/2024 7:06 PM EDT [facility] TRIGLYCERIDE 462(H) 27 - 150 mg/dL 11/05/2024 7:06 PM EDT [facility] HDL CHOLESTEROL 38(L) >39 mg/dL 5 7:06 PM EDT [facility] Comment: HDL <40 mg/dL - High Risk HDL > or = 40mg/dL- Desirable HDL >60 mg/dL - Negative Risk CHOLESTEROL:HDL 4.3 1.0 - 5.0 5 7:06 PM EDT [facility] VERY LOW LIPOPROTEIN 92(H) 0 - 30 mg/dL 11/05/2024 7:06 PM EDT [facility] Blood Venous blood / Unknown 11/05/2024 1:48 PM EDT 11/05/2024 1:48 PM EDT Narrative [facility] - 11/05/2024 7:06 PM EDT LDL (CALC) Not reported due to high Triglyceride Keaton Peñaloza DO LAB BLOOD ORDERABLES Final Resul t [facility] [address] [place] [address], [place] [phone] * (ABNORMAL) Comprehensive metabolic panel (11/05/2024 1:48 PM EDT) SODIUM 140 134 - 146 mmol/L 11/05/2024 7:01 PM EDT [facility] POTASSIUM 3.6 3.5 - 5.0 mmol/L 11/05/2024 7:01 PM EDT [facility] CHLORIDE 99 98 - 109 mmol/L 11/05/2024 7:01 PM EDT [facility] CARBON DIOXIDE 29 22 - 32 mmol/L 11/05/2024 7:01 PM EDT [facility] ANION GAP 12 5 - 15 mmol/L 11/05/2024 7:01 PM EDT [facility] BLOOD UREA NITROGEN 24 5 - 27 mg/dL 11/05/2024 7:01 PM EDT [facility] CREATININE 1.19(H) 0.40 - 1.00 mg/dL 11/05/2024 7:01 PM EDT [facility] Comment:METHOD TRACEABLE TO IDMS STANDARD GLUCOSE 350(H) 65 - 99 mg/dL 11/05/2024 7:01 PM EDT [facility] CALCIUM 9.6 8.5 - 10.5 mg/dL 11/05/2024 7:01 PM EDT [facility] TOTAL PROTEIN 7.0 6.0 - 8.0 g/dL 11/05/2024 7:01 PM EDT [facility] ALBUMIN 3.9 3.2 - 5.3 g/dL 11/05/2024 7:01 PM EDT [facility] ALKALINE PHOSPHATASE 93 39 - 130 U/L 11/05/2024 7:01 PM EDT [facility] AST 13 <=41 U/L 11/05/2024 7:01 PM EDT [facility] ALT 13 <=31 U/L 11/05/2024 7:01 PM EDT [facility] BILIRUBIN,TOTAL 0.8 0.3 - 1.2 mg/dL 11/05/2024 7:01 PM EDT [facility] EGFR Non-Race Dependent 50(L) >=60 ml/min/1.7 3sq.m 11/05/2024 7:01 PM EDT [facility] Comment: Reported eGFR is based on the CKD-EPI 2020 equation that does not use a race coefficient. Blood Venous blood / Unknown 11/05/2024 1:48 PM EDT 11/05/2024 1:48 PM EDT Keaton Peñaloza DO LAB BLOOD ORDERABLES Final Resul t [facility] [address] [place] [address], * SARS/FLU A+B/RSV by NAAT/Molecular (M4RT Collection Tube) (11/02/2024 11:36 AM EDT) FLU A PCR Negative Negative 11/02/2024 12:18 PM EDT [facility] FLU B PCR Negative Negative 11/02/2024 12:18 PM EDT [facility] RSV BY PCR Negative Negative 11/02/2024 12:18 PM EDT [facility] SARS COV 2 BY PCR Not Detected Not Detected 11/02/2024 12:18 PM EDT [facility] Swab Nasopharyngeal structure / Unknown 11/02/2024 11:36 AM EDT 11/02/2024 11:37 AM EDT Craig [facility] - 11/02/2024 12:18 PM EDT The Xpert Xpress SARS-CoV-2/Flu/RSV Plus test is a rapid, multiplexed real-time RT-PCR test intended for the simultaneous qualitative detection and differentiation of SARS-CoV-2, influenza A, influenza B and respiratory syncytial virus (RSV) viral RNA from individuals suspected of respiratory viral infection consistent with COVID-19 by Their healthcare provider. This test has not been validated in asymptomatic patients. The Xpert Xpress SARS-CoV-2 test is intended for use by qualified and trained operators who are performing tests using either [employer] or [employer] systems and is limited to laboratories that meet the CLIA requirements to perform high and moderate complexity tests. The Xpert Xpress SARS-CoV-2/Flu/RSV Plus is only for use under the Food and Drug Administration's Emergency Use Authorization. Results are for the simultaneous detection and differentiation of SARS-CoV-2, influenza A, influenza B and RSV nucleic acids in clinical specimens. SARS-CoV-2, influenza A, influenza B and RSV RNA identified by this test are generally detectable in upper respiratory samples during the acute phase of infection. Positive results are Indicative of the presence of the identified virus, but do not rule out bacterial infection or co-infection with other pathogens not detected by this test. Clinical correlation with patient history and other diagnostic information is necessary to determine patient infection status. The agent detected may not be the definite cause of disease. Negative results do not preclude SARS-CoV-2, influenza A, influenza B and RSV infection and should not be used as the sole basis for treatment or other patient management decisions. Negative results must be combined with clinical observations, patient history and epidemiological information. An Invalid result may occur with specimen-associated inhibition unable to be resolved with specimen repeat. Fact Sheet for Healthcare Providers: https://www.fda.gov/media/605737/download Fact Sheet for Patients: https://www.fda.gov/media/176662/download us Evangelista Stone MD MICROBIOLOGY - GENERAL OR DERABLES Final Result [facility] [address] [place] [address], [place] * DIABETES EYE EXAM (09/27/2023 1:46 PM EDT) us Keaton Peñaloza DO HEALTH MAINTENANCE Final Result Performing Organization Address [facility]/ZIP Co de Phone Number MANUALLY TRANSCRIBED RESULTS * High risk HPV w/zane (06/18/2023 5:35 AM EST) Hpv specimen type ThinPrep 06/19/2023 5:35 AM EST [facility] Hpv 16 Negative Negative^N egative 06/19/2023 2:12 PM EST [facility] Hpv 18 Negative Negative^N egative 06/19/2023 2:12 PM EST [facility] Other high risk hpv Negative Negative^N egative 06/19/2023 2:12 PM EST [facility] Comment: HPV types 31,33,35,39,45,52,56,58,59,66 and 68 DNA were undetectable. THINP 06/18/2023 5:35 AM EST 06/19/2023 5:36 AM EST us Grace Bruce MD LAB BLOOD ORDERABLES Final Res ult Performing Organization Address [facility] Co de Phone Number [facility] [address] [facility], [place] [address] [facility] [address] [place] [address] from Last 3 Months or Most Recently Relevant to Health Maintenance Insurance [employer] MEDICARE [employer] MEDICARE Advance Directives * Full Code (Latest Code Status on File) Date Activated Date Inactivated Comments 07/30/2023 2:34 PM 08/01/2023 3:54 PM * Full Code Date Activated Date Inactivated Comments 03/21/2021 2:25 PM 03/25/2021 8:35 PM * Full Code Date Activated Date Inactivated Comments 11/01/2018 4:35 PM 11/03/2018 7:24 PM Care Teams Filter Washer And Presser Relationship Specialty Start Date End Date Keaton Peñaloza DO [address] [id number] PCP - General Internal Medicine 06/24/24
--- OUTSIDE RECORDS SUMMARY | 2024-12-09 13:10 | XMS_ITS | Encounter Summary ---
Author Organization [facility] Address [facility] [place] [address] Care Team Providers Care Service Loss Control Consultant Name Role Phone Yanick Cesar Unavailable Keaton Peñaloza Primary Care Provider [phone] Pauline Fatima SENIOR ENTERPRISE ARCHITECT Unavailable Unavailable Little Bowens RN Unavailable [phone] Arturo Mcdonald MD Unavailable [phone] Cailin Montero PA-C Unavailable [phone] Richardson Beltran MD Unavailable [phone] Source Comments In the event this information is protected by the Federal Confidentiality of Alcohol and Drug AbusePatient Records regulations: The Federal rules restrict any use of the information to criminally investigate or prosecute any alcohol or drug abuse patient.[facility] Encounter Details Date Type Department Care Team (Late st Contact Info) Description 12/09/2023 [place] [address] Provider, [facility] MRI Screening Questionnaire Completion Required [...] is lower risk 6 07/10/2023 Data from: https://www.neighborhoodatlas.medicine.[place].[facility]/. Last address used for calculation Tomasa COMBS [...] PM EDT Appointment Radiology Pet CT [address] [place] [address] Ct Chest without contrast 03/19/2025 3:20 PM EDT Appointment [facility] [place] [address] [place] [address] MRI Rectum w/wo contrast 03/23/2025 2:15 PM EST Office Visit [facility] Laboratory [address] [place] [address] [place] [address] 4 week follow up for MRI and Ct results 03/23/2025 2:40 PM EST Visit (SP) Office Hematology/Oncology [address] [place] [address] [place] [address] Richardson Beltran MD [address] [place] [address] [place] [address] 4 week follow up for MRI and Ct results documented as of this encounter Visit Diagnoses Not on filedocumented in this encounter Care Teams Service Loss Control Consultant Relationship Specialty Start Date End Date Keaton Peñaloza [address] [place] [address] PCP - General Internal Medicine 07/10/23 Yanick Cesar [address] [place] [address] Referring Disability Rater 09/05/18 Pauline Fatima LSW Fitness Specialist 07/10/23 Little Bowens, RN [address] [place] [address] Specialty Apprentice Electrician Hematology/Oncology 09/19/23 Arturo Mcdonald MD [address] [place] [address] [place] [address] Physician Hematology/Oncology 09/19/23 01/03/24 Cailin Montero, PA-C [address] [place] [address] [place] [address] Physician Double Cutter Hematology/Oncology 09/19/23 Richardson Beltran MD [address] [place] [address] [place] [address] Physician Hematology/Oncology 01/04/24 documented as of this encounter
--- OUTSIDE RECORDS SUMMARY | 2024-12-09 13:10 | XMS_ITS | Encounter Summary ---
Author Organization [facility] Address [facility] [place] [address] Care Team Providers Care Finish Opener Name Role Phone Yanick Cesar Unavailable Keaton Peñaloza Primary Care Provider [phone] Pauline Fatima Unavailable Unavailable Little Bowens RN Unavailable [phone] Cailin Montero PA-C Unavailable [phone] Richardson Beltran MD Unavailable [phone] Source Comments In the event this information is protected by the Federal Confidentiality of Alcohol and Drug AbusePatient Records regulations: The Federal rules restrict any use of the information to criminally investigate or prosecute any alcohol or drug abuse patient.[facility] Encounter Details Date Type Department Care Team (Late st Contact Info) Description 06/30/2024 Telephone Radiology [address] [place], [place] [id number] Loyda Argueta Social History Tobacco Use Types [...] is lower risk 6 07/10/2023 Data from: https://www.neighborhoodatlas.medicine.[facility]/. Last address used for calculation Tomasa COMBS [...] PM EDT Appointment Radiology Pet CT [address] [place] [address] Ct Chest without contrast 03/19/2025 3:20 PM EDT Appointment [facility] [place] [address] [place], [place] [id number] MRI Rectum w/wo contrast 03/23/2025 2:15 PM EST Office Visit [facility] Laboratory [address] [place] [address] [place] [address] 4 week follow up for MRI and Ct results 03/23/2025 2:40 PM EST Visit (SP) Office Hematology/Oncology [address] [place] [address] [place] [address] Richardson Beltran MD [address] [place] [address] [place] [address] 4 week follow up for MRI and Ct results documented as of this encounter Visit Diagnoses Not on filedocumented in this encounter Care Teams Finish Opener Relationship Specialty Start Date End Date Keaton Peñaloza [address] [place] [address] PCP - General Internal Medicine 07/10/23 Yanick Cesar [address] [place] [address] Referring Sheep Clipper 09/05/18 Pauline Fatima LSW Process Development Associate 07/10/23 Little Bowens, RN [address] [place] [address] [place] [address] Specialty Business Continuity Manager Hematology/Oncology 09/19/23 Cailin Montero PA-C [address] [place] [address] [place] [address] Physician Assisted Living Coordinator Hematology/Oncology 09/19/23 Richardson Beltran MD [address] [place] [address] [place] [address] Physician Hematology/Oncology 01/04/24 documented as of this encounter
--- OUTSIDE RECORDS SUMMARY | 2024-12-09 13:11 | XMS_ITS | Encounter Summary ---
Author Organization [facility] Address [facility]-[id number] [address] [place] [address] Care Team Providers Care Website Project Manager Name Role Phone JhKeaton DO Primary Care Provider [phone] Reason for Visit * Reason Onset Date Comments Transition Of Care 08/02/2023 Encounter Details Date Type Department Care Team (Late st Contact Info) Description 08/02/2023 Telephone [facility] Internal Medicine - Family Medicine [address] [place] [address] Lauren Carson, manual qa tester Of Care Social History Tobacco Use Types Packs/Day Years Used Date Smoking Tobacco: Former Cigarettes Q uit: 1976 Smokeless Tobacco: Never Comments:smoked for 1 year w tab was age 18 Alcohol Use Standard Drinks/Week Comments Yes 1 (1 standard drink = 0.6 oz pur e alcohol) socially C Utilities Answer Date Recorded In the past 12 months has [employer] electric, gas, oil, or water company threatened [...] often do you attend chur ch or taoist services? More than 4 times per year 02/27/2023 Do you belong to any clubs o r organizations such as jehovah's witness groups, unions, fraternal or athletic groups, or [...] Answer Date Recorded Total Score 0 06/12/2023 [facility] Occupat ional Health - [...] Recorded Do you need help finding a [facility] career center and/or a training [...] Discharge Specialty: Cardiac *Name of Discharging Facility: [facility] Date of Facility Discharge: Admitted: 07/30/23 Discharged: 08/01/23 Date of Interactive Contact and Name of Clinical Phlebotomist: 08/02/23 @ 935 am: no answer, left [...] can check with? * Telephone Encounter - Fraa Marsh - 08/02/2023 9:35 AM EDT Talked [...] Medicine - Family Medicine [address] [place] [address] Keaton Peñaloza DO [address] [place] [address] documented as of this encounter Goals Goal Patient Goal Type Associated Problems Recent Progress Patient-Stated? Author safe transition to home General Yes Nini De Luna LSW Note: Evaluation of progress towards goal: safe transition to home with self care. documented as of this encounter Visit Diagnoses Not on filedocumented in this encounter Additional Health Concerns Infection Onset Date Last Indicated Resolved Time Respiratory Rule-Out 11/02/2024 11/02/2024 025 12:18 PM EDT Assessment Noted Time PHQ-9 Depression Total Score: 0 06/12/19 24 12:28 PM EST A Body Mass Index follow-up plan has been documented for the patient 04/23/2019 8:40 AM EST documented as of this encounter Care Teams Website Project Manager Relationship Specialty Start Date End Date Keaton Peñaloza DO [address] [place] [address] PCP - General Internal Medicine 06/24/24 documented as of this encounter
--- OUTSIDE RECORDS SUMMARY | 2024-12-09 13:11 | XMS_ITS | Encounter Summary ---
Author Organization [facility] Address [address] [place] [address] Care Team Providers Care Pbx Supervisor Name Role Phone Yanick Cesar Unavailable Keaton Peñaloza Primary Care Provider [phone] Pauline Fatima Unavailable Unavailable Little Bowens RN Unavailable [phone] Cailin Montero PA-C Unavailable [phone] Richardson Beltran MD Unavailable [phone] Source Comments In the event this information is protected by the Federal Confidentiality of Alcohol and Drug AbusePatient Records regulations: The Federal rules restrict any use of the information to criminally investigate or prosecute any alcohol or drug abuse patient.[facility] Reason for Visit * Reason Comments Results Encounter Details Date Type Department Care Team (Late st Contact Info) Description 01/14/2024 Telephone Hematology/Oncology [address] [facility] [place] [address] Cailin Montero PA-C [address] [facility] [place] [address] Results Social History Tobacco Use Types [...] is lower risk 6 07/10/2023 Data from: https://www.neighborhoodatlas.[facility]/. Last address used for calculation [...] to further plan her future treatments. Cailin Montero PA-C documented in this encounter Plan of Treatment Upcoming Encounters Date Type Department Care Team (Latest Contact Info) Description 03/02/2025 12:45 PM EDT Appointment Radiology Pet CT [address] [facility] [place] [address] Ct Chest without contrast 03/19/2025 3:20 PM EDT Appointment [facility] [place] [address] [place] [address] MRI Rectum w/wo contrast 03/23/2025 2:15 PM EST Office Visit [facility] Laboratory [address] [place] [address] 4 week follow up for MRI and Ct results 03/23/2025 2:40 PM EST Visit (SP) Office Hematology/Oncology [address] [place] [address] Richardson Beltran MD [address] [place] [address] 4 week follow up for MRI and Ct results documented as of this encounter Visit Diagnoses Not on filedocumented in this encounter Care Teams Pbx Supervisor Relationship Specialty Start Date End Date Keaton Peñaloza [address] [place] [address] PCP - General Internal Medicine 07/10/23 Yanick Cesar [address] [place] [address] Referring Marketing And Outreach Coordinator 09/05/18 Pauline Fatima LSW Forest Pathology Associate Professor 07/10/23 Little Bowens, RN [address] [facility] [place] [address] Specialty Bread Jockey Hematology/Oncology 09/19/23 Cailin Montero PANicholeC [address] [place] [address] Physician Clinical Education Academic Coordinator Hematology/Oncology 09/19/23 Richardson Beltran MD [address] [place] [address] Physician Hematology/Oncology 01/04/24 documented as of this encounter
--- OUTSIDE RECORDS SUMMARY | 2024-12-09 13:11 | XMS_ITS | Encounter Summary ---
Author Organization [employer] Address [facility]-[id number] [address] [place] [address] Care Team Providers Care Sr. Manager Corporate Communications Name Role Phone JhKeaton DO Primary Care Provider [phone] Encounter Details Date Type Department Care Team (Late st Contact Info) Description 11/06/2024 Telephone [facility] Internal Medicine - Family Medicine [address] [place] [address] Kassi Rosado CMA Social History Tobacco Use Types Packs/Day Years Used Date Smoking Tobacco: Former Cigarettes Q uit: 1976 Smokeless Tobacco: Never Comments:smoked for 1 year w hen was age 18 Alcohol Use Standard Drinks/Week Comments Yes 1 (1 standard drink = 0.6 oz pur e alcohol) socially [employer] Utilities Answer Date Recorded In the past [...] week 10/30/2024 How often do you attend chur ch or restoration services? More than 4 times per year 10/30/2024 Do you belong to any clubs o r organizations such as buddhist groups, unions, fraternal or athletic groups, or [...] Answer Date Recorded Total Score 0 11/05/2024 [facility] Occupat ional Health - Occupational [...] Telephone Encounter - Kassi Rosado CMA - 11/06/2024 9:21 AM EDT ----- Message from Keaton Peñaloza DO sent at 11/05/2024 10:00 PM EDT ----- Reviewed. Her A1c is still very high. Keep taking the Lantus 50 units every night. Start taking the Ozempic 2 mg weekly Once we get the glucose monitor set up, then we can adjust the medications even better. ----- Message ----- From: Lab, Background User Sent: 11/05/2024 7:01 PM EDT To: Keaton Peñaloza DO * Telephone Encounter - Kassi Rosado CMA - 11/06/2024 9:21 AM EDT Left a message for the patient to call us back documented in this encounter Plan of Treatment Upcoming Encounters Date Type Department Care Team (Late st Contact Info) Description 02/05/2025 1:30 PM EDT Office Visit [facility] Internal Medicine - Family Medicine [address] [place] [phone] Keaton Peñaloza DO [address] [facility] [place] [address] documented as of this encounter Goals Goal Patient Goal Type Associated Problems Recent Progress Patient-Stated? Author safe transition to home General Yes Nini De Luna LSW Note: Evaluation of progress towards goal: safe transition to home with self care. documented as of this encounter Visit Diagnoses Not on filedocumented in this encounter Additional Health Concerns Assessment Noted Time PHQ-9 Depression Total Score: 0 11/06/19 25 1:07 PM EDT A Body Mass Index follow-up plan has been documented for the patient 04/23/2019 8:40 AM EST documented as of this encounter Care Teams Sr. Manager Corporate Communications Relationship Specialty Start Date End Date Keaton Peñaloza DO [address] [place] [address] PCP - General Internal Medicine 06/24/24 documented as of this encounter
--- OUTSIDE RECORDS SUMMARY | 2024-12-09 13:11 | XMS_ITS ---
Author Organization [facility] Address [address] [place] [address] Care Team Providers Care Information Systems Security Manager Name Role Phone Yanick Cesar Unavailable Keaton Peñaloza Primary Care Provider [phone] Pauline Fatima ASSEMBLER BONDING Unavailable Unavailable Little Bowens RN Unavailable [phone] Cailin MonteroC Unavailable [phone] Richardson Beltran MD Unavailable [phone] Active Problems Problem Noted Date Diagnosed Date Stage 3a chronic kidney disease 10/31/2023 Malignant neoplasm of rectum 10/16/2023 Hypertension Diabetes Current Treatment and Therapy [...]
--- OUTSIDE RECORDS SUMMARY | 2024-12-09 13:11 | XMS_ITS | Encounter Summary ---
Author Organization [facility] [employer] [facility] tem Address [facility]-[id number] [address] [place] [address] Care Team Providers Care City Supervisor Name Role Phone JhKeaton DO Primary Care Provider [phone] Encounter Details Date Type Department Care Team (Late st Contact Info) Description 12/22/2022 Telephone [facility] [address] [place] [phone] Angelo Lion PA [address] [facility], [address] [place] [address] Social History Tobacco Use Types Packs/Day Years [...] - Family Medicine [address] [place] [address] Keaton Peñaloza DO [address] [place] [address] documented as of this encounter Visit Diagnoses Not on filedocumented in this encounter Additional Health Concerns Infection Onset Date Last Indicated Resolved Time COVID-19 Rule-Out 05/21/2023 05/21/2023 05/21/2023 12:48 PM EST Respiratory Rule-Out 11/02/2024 11/02/2024 025 12:18 PM EDT Assessment Noted Time A Body Mass Index follow-up plan has been documented for the patient 04/23/2019 8:40 AM EST documented as of this encounter Care Teams City Supervisor Relationship Specialty Start Date End Date Keaton Peñaloza DO [address] [place] [address] PCP - General Internal Medicine 06/24/24 documented as of this encounter
--- OUTSIDE RECORDS SUMMARY | 2024-12-09 13:11 | XMS_ITS | Encounter Summary ---
Author Organization [employer] [facility] tem Address [facility]-[id number] [address] [place] [address] Care Team Providers Care Marketing Budget Analyst Name Role Phone Keaton Peñaloza DO Primary Care Provider [phone] Encounter Details Date Type Department Care Team (Late Contact Info) Description 01/23/2023 Orders Only [facility] Internal Medicine - Family Medicine [address] [place] [address] Keaton Peñaloza DO [address] [place] [address] Mixed hyperlipidemia (Primary Dx); Type 2 diabetes mellitus without complication, with long-term current use of insulin ([facility]) Social History Tobacco Use Types Packs/Day Years [...] Encounters Date Type Department Care Team (Late Contact Info) Description 02/05/2025 1:30 PM EDT Office Visit [facility] Medicine - Family Medicine [address] [place] [address] Keaton Peñaloza DO [address] [place] [address] documented as of this encounter Visit Diagnoses Diagnosis Mixed hyperlipidemia- Primary Type 2 diabetes mellitus without complication, with long-term current use of insulin ([facility]) documented in this encounter Additional Health Concerns Infection Onset Date Last Indicated Resolved Time COVID-19 Rule-Out 05/21/2023 05/21/2023 05/21/2023 12:48 PM EST Respiratory Rule-Out 11/02/2024 11/02/2024 025 12:18 PM EDT Assessment Noted Time PHQ-9 Depression Total Score: 0 01/18/20 23 2:58 PM EDT A Body Mass Index follow-up plan has been documented for the patient 04/23/2019 8:40 AM EST documented as of this encounter Care Teams Marketing Budget Analyst Relationship Specialty Start Date End Date Keaton Peñaloza DO [address] [place] [address] PCP - General Internal Medicine 06/24/24 documented as of this encounter
--- OUTSIDE RECORDS SUMMARY | 2024-12-09 13:11 | XMS_ITS | Encounter Summary ---
Author Organization [email or web address] Address [facility]-[id number] [address] [place] [address] Care Team Providers Care Electric Power Line Examiner Name Role Phone Jh Keaton Joy BUNN Primary Care Provider [phone] Encounter Details Date Type Department Care Team (Late st Contact Info) Description 03/19/2023 Telephone [facility] Internal Medicine - Family Medicine [address] [place] [address] Winter Snider CMA Social History [...] How often do you attend chur or pentecostal services? More than 4 times per year [...] Answer Date Recorded Total Score 2 02/27/2023 [facility] Occupat ional Health - [...] Recorded Do you need help finding a [facility] career center and/or a training program? No [...] Medicine - Family Medicine [address] [facility] [place] [address] Keaton Peñaloza DO [address] [place] [address] documented as of this encounter Visit Diagnoses [...] documented as of this encounter Care Teams Electric Power Line Examiner Relationship Specialty Start Date End Date Keaton Peñaloza DO [address] [facility] [place] [address] PCP - General Internal Medicine 06/24/24 documented as of this encounter
--- OUTSIDE RECORDS SUMMARY | 2024-12-09 13:11 | XMS_ITS | Encounter Summary ---
Author Organization [employer] Address [id number] [address] [place] [address] Care Team Providers Care Helper Chicken Farm Name Role Phone JhKeaton DO Primary Care Provider [phone] Reason for Visit * Reason Onset Date Comments Med Refill 03/20/2024 Encounter Details Date Type Department Care Team (Late st Contact Info) Description 03/20/2024 Refill [facility] Internal Medicine - Family Medicine [address] [place] [phone] Aurea Moreau, ALAN Social History Tobacco Use Types Packs/Day Years Used Date Smoking Tobacco: Former Cigarettes Q uit: 1976 Smokeless Tobacco: Never Comments:smoked for 1 year w hen was age 18 Alcohol Use Standard Drinks/Week Comments Yes 1 (1 standard drink = 0.6 oz pur e alcohol) socially C Utilities Answer Date Recorded In the past 12 months has [employer], gas, oil, or water company threatened [...] often do you attend chur ch or mormon services? More than 4 times per year [...] Answer Date Recorded Total Score 17 08/20/2023 [facility] Occupat ional Health - Occupational [...] Internal Medicine - Family Medicine [address] [place] [address] Keaton Peñaloza DO [address] [place] [address] documented as of this encounter Goals Goal [...] documented as of this encounter Care Teams Helper Chicken Farm Relationship Specialty Start Date End Date Keaton Peñaloza DO [address] [facility] [place] [address] PCP - General Internal Medicine 06/24/24 documented as of this encounter
--- OUTSIDE RECORDS SUMMARY | 2024-12-09 13:11 | XMS_ITS | Encounter Summary ---
Author Organization [facility] Address [address] [place] [address] Care Team Providers Care Elevator Adjuster Name Role Phone Yanick Cesar Unavailable Keaton Peñaloza Primary Care Provider [phone] Pauline FatimaW Unavailable Unavailable Little Bowens RN Unavailable [phone] Arturo Mcdonald MD Unavailable [phone] Cailin Montero PA-C Unavailable [phone] Richardson Beltran MD Unavailable [phone] Source Comments In the event this information is protected by the Federal Confidentiality of Alcohol and Drug AbusePatient Records regulations: The Federal rules restrict any use of the information to criminally investigate or prosecute any alcohol or drug abuse patient.[facility] Encounter Details Date Type Department Care Team (Late st Contact Info) Description 08/10/2023 Lab Requisition [facility] [address] [place] [address] [place] [address] [place] [id number] Person encountering health services to consult on [...] is lower risk 6 07/10/2023 Data from: https://www.neighborhoodatlas.[facility]/. Last address used for calculation [address] [...] PM EDT Appointment Radiology Pet CT [address] [place] [address] Ct Chest without contrast 03/19/2025 3:20 PM EDT Appointment [facility] [place] [address] [place] [address] MRI Rectum w/wo contrast 03/23/2025 2:15 PM EST Office Visit [facility] [place] [address] 4 week follow up for MRI and Ct results 03/23/2025 2:40 PM EST Visit (SP) Office Hematology/Oncology [facility] [place] [address] Richardson Beltran MD [address] [place] [address] [place] [address] 4 week follow up for MRI and Ct results documented as of this encounter Procedures Procedure [...] Proficient (Microsatellite Stable) 4 5:05 PM EDT [facility] MLH1 Immunohistochemical Results Normal/Intact Nuclear Expression 4 5:05 PM EDT [facility] PMS2 Immunohistochemical Results Normal/Intact Nuclear Expression 4 5:05 PM EDT [facility] MSH2 Immunohistochemical Results Normal/Intact Nuclear Expression 4 5:05 PM EDT [facility] MSH6 Immunohistochemical Results Normal/Intact Nuclear Expression 4 5:05 PM EDT [facility] MLH1 Promoter Methylation Assay No 4 5:05 PM EDT [facility] Tumor Type Primary Colorectal Adenocarcinoma 4 5:05 PM EDT [facility] 4 5:05 PM EDT [facility] Referring Laboratory ([facility], [place], [place]) 4 5:05 PM EDT [facility] Block ID [id number] 1C 4 5:05 PM EDT [facility] Fixative Formalin, 10% Neutra l Buffered 4 5:05 PM EDT [facility] Interpretation Comment and Reference Range Intact [...] patients with metastatic carcinoma, Angelica et al. (NEJ 2015;372:2509-20) reported that clinical benefit of pembrolizumab, an [...] questions about this result, please call the [facility] at [phone]. 5:05 PM EDT [facility] Method Immunohistochemistry was performed on formalin fixed paraffin-embedded tissue using the following clones: MLH1 (clone M1 mouse monoclonal); MSH2 ([id number] mouse monoclonal); and MSH6 (SP93 rabbit monoclonal); followed by ultrasensitive bright field detection (Optiview with amplification) from [[employer], [place]]. PMS2 (EP51 Rabbit monoclonal, [employer]); followed by ultrasensitive bright field detection ( Cho Refine Polymer DAB Detection) from [[employer], [place], [place]]. 5:05 PM EDT [facility] Disclaimer Laboratory Developed Test (LDT) Disclaimer: Performance characteristics of immunohistochemical, immunofluorescent and chromogenic in-situ hybridization tests have been determined by the performing laboratory within [facility] [place] ([facility], [facility], [facility], [facility], [facility], [facility], or [facility]) in a manner consistent with CLIA requirements. One or more of these tests have not been cleared or approved by the FDA. [facility] is regulated under CLIA as qualified to perform high-complexity testing. These tests are used for clinical purposes. They should not be regarded as investigational or for research. Positive and negative controls stain appropriately. 5:05 PM EDT [facility] Performing Lab Diagnostic interpretation performed at [facility], [address] [place], [place] [address] [id number] CLIA: [id number] Cloth Shearer: Jimmie Ruiz MD Electronically signed out by: Christopher Leo MD 5:05 PM EDT [facility] Blocks or Slides PARAFFIN EMBEDDED TISSUE BLOCK SPECIMEN / Unknown 08/10/2023 10:48 AM EDT 08/22/2023 3:35 PM EDT us Evans Garza MD SURGICAL PATHOLOGY Final Resu lt [facility] [address] [place] [address], [place] * OUTSIDE SURG PATH SLIDE REVIEW (08/10/2023 10:48 AM EDT) Case Report Surgical Pathology Report Case: [id number] Authorizing Provider: Evans Garza MD Collected: 08/10/2023 10:48 AM Ordering Location: [facility] Received: 08/10/2023 10:[address] 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 2. Anal verge, procedure not specified: - Inflammatory cloacogenic polyp, ulcerated, negative for dysplasia or carcinoma. 08/13/2023 3:39 PM EDT [facility] at 1539 EDT Performing Lab Diagnostic interpretation performed at [facility], [address] [place] [address] CLIA# [id number] Cloth Shearer: Jimmie Ruiz M.D. 08/13/2023 3:39 PM EDT [facility] Blocks or Slides PARAFFIN EMBEDDED TISSUE BLOCK SPECIMEN / Unknown 08/10/2023 10:48 AM EDT 08/10/2023 10:45 AM EDT us Evans Garza MD SURGICAL PATHOLOGY Final Resu lt [facility] [address] [facility] [address] [place] [address], documented in this encounter Visit Diagnoses Diagnosis Person encountering health services to consult on behalf of another person Other person consulting on behalf of another person documented in this encounter Care Teams Elevator Adjuster Relationship Specialty Start Date End Date Luiscira Keaton Conteh [address] [place] [address] PCP - General Internal Medicine 07/10/23 Yanick Cesar [address] [place] [address] Referring Plastic Technician 09/05/18 Pauline Fatima LSW Bdc Manager 07/10/23 Little Bowens RN [address] [place] [address] [place] [address] Specialty Dock Supervisor Hematology/Oncology 09/19/23 Arturo Mcdonald MD [address] [place] [address] [place] [address] Physician Hematology/Oncology 09/19/23 01/03/24 Cailin Montero PA-C [address] [place] [address] [place] [address] Physician Director Industrial Hematology/Oncology 09/19/23 Richardson Beltran MD [address] [place] [address] Physician Hematology/Oncology 01/04/24 documented as of this encounter
--- OUTSIDE RECORDS SUMMARY | 2024-12-09 13:11 | XMS_ITS | Encounter Summary ---
Author Organization e27 Sys tem Address [id number] [address] [place] [address] Care Team Providers Care Assistant Analyst Name Role Phone LuisKeaton denis DO Primary Care Provider [phone] Encounter Details Date Type Department Care Team (Late st Contact Info) Description 03/07/2023 Telephone [facility] Internal Medicine - Family Medicine [address] [place] [address] Kassi Rosado CMA Social History [...] How often do you attend chur or nondenominational services? More than 4 times per year 02/27/2023 Do you belong to any clubs o r organizations such as baptist groups, unions, fraternal or athletic groups, or [...] Answer Date Recorded Total Score 2 02/27/2023 [facility] of Occupat ional Health - Occupational [...] Recorded Do you need help finding a [facility] career center and/or a training [...] Internal Medicine - Family Medicine [address] [place] [address] Keaton Peñaloza DO [address] [place] [address] documented as of this encounter Visit Diagnoses [...] documented as of this encounter Care Teams Assistant Analyst Relationship Specialty Start Date End Date Keaton Peñaloza DO [address] [place] [address] PCP - General Internal Medicine 06/24/24 documented as of this encounter
--- OUTSIDE RECORDS SUMMARY | 2024-12-09 13:11 | XMS_ITS | Encounter Summary ---
Author Organization [facility] Address [facility] [id number] [address] [place] [address] Care Team Providers Care Director Of Golf Name Role Phone Keaton Peñaloza DO Primary Care Provider [phone] Encounter Details Date Type Department Care Team (Late st Contact Info) Description 03/19/2023 Orders Only [facility] Internal Medicine - Family Medicine [address] [place] [address] Keaton Peñaloza DO [address] [place] [address] Type 2 diabetes mellitus with microalbuminuria, with long-term current use of insulin ([facility]) Social History Tobacco Use Types Packs/Day Years [...] Answer Date Recorded Total Score 2 02/27/2023 [facility] of Occupat ional Health - [...] Recorded Do you need help finding a [facility] career center and/or a training program? [...] Internal Medicine - Family Medicine [address] [place] [address] Keaton Peñaloza DO [address] [place] [address] documented as of this encounter Visit Diagnoses Diagnosis Type 2 diabetes mellitus with microalbuminuria, with long-term current use of insulin ([facility]) documented in this encounter Additional Health Concerns [...] as of this encounter Care Teams Director Of Golf Relationship Specialty Start Date End Date Keaton Peñaloza DO [address] [place] [address] PCP - General Internal Medicine 06/24/24 documented as of this encounter
--- OUTSIDE RECORDS SUMMARY | 2024-12-09 13:11 | XMS_ITS | Encounter Summary ---
Author Organization [facility] Address [id number] [address] [place] [address] Care Team Providers Care Mill Stenciler Name Role Phone Keaton Peñaloza DO Primary Care Provider [phone] Encounter Details Date Type Department Care Team (Late st Contact Info) Description 05/09/2024 Orders Only [facility] Internal Medicine - Family Medicine [address] [place] [address] Keaton Peñaloza DO [address] [place] [address] Social History Tobacco Use Types Packs/Day Years Used Date Smoking Tobacco: Former Cigarettes Q uit: 1976 Smokeless Tobacco: Never Comments:smoked for 1 year w hen was age 18 Alcohol Use Standard Drinks/Week Comments Yes 1 (1 standard drink = 0.6 oz pur e alcohol) socially State Utilities Answer Date Recorded In the past 12 months has [employer], gas, oil, or water [employer] threatened to shut off services in your [...] How often do you attend chur or yazidism services? More than 4 times per year 02/27/2023 Do you belong to any clubs o r organizations such as yazidi groups, unions, fraternal or athletic groups, or [...] Answer Date Recorded Total Score 17 08/20/2023 [facility] - Occupational Stress Questionnaire Answer Date [...] Recorded Do you need help finding a parnassus campusal career center and/or a training program? No [...] Internal Medicine - Family Medicine [address] [place] [address] Keaton Peñaloza DO [address] [place] [address] documented as of this encounter Goals Goal [...] documented as of this encounter Care Teams Mill Stenciler Relationship Specialty Start Date End Date Keaton Peñaloza DO [address] [facility] [place] [address] PCP - General Internal Medicine 06/24/24 documented as of this encounter
--- OUTSIDE RECORDS SUMMARY | 2024-12-09 13:11 | XMS_ITS | Encounter Summary ---
Author Organization [facility] Address [id number] [address] [place] [address] Care Team Providers Care Machine Silk Screen Printer Name Role Phone Keaton Peñaloza DO Primary Care Provider [phone] Reason for Visit * Reason Comments Med Refill Encounter Details Date Type Department Care Team (Late st Contact Info) Description 10/24/2024 Refill [facility] Internal Medicine - Family Medicine [address] [place] [address] Keaton Peñaloza DO [address] [place] [address] Type 2 diabetes mellitus without complication, with long-term current use of insulin ([facility]) Social History Tobacco Use Types Packs/Day Years Used Date Smoking Tobacco: Former Cigarettes Q uit: 1976 Smokeless Tobacco: Never Comments:smoked for 1 year w hen was age 18 Alcohol Use Standard Drinks/Week Comments Yes 1 (1 standard drink = 0.6 oz pur e alcohol) socially [employer] Utilities Answer Date Recorded In the past 12 months has [employer], gas, oil, or water [employer] threatened to shut off services in your [...] week 02/27/2023 How often do you attend [facility] or scientology services? More than 4 times per year [...] Answer Date Recorded Total Score 17 08/20/2023 [facility] of Occupat ional Health - Occupational [...] Recorded Do you need help finding a [facility] career center and/or a training program? [...] Telephone Encounter - Yolanda Roth CMA - 10/24/2024 2:02 AM EDT Scheduled. documented in this encounter Plan of Treatment Upcoming Encounters Date Type Department Care Team (Late st Contact Info) Description 02/05/2025 1:30 PM EDT Office Visit [facility] Internal Medicine - Family Medicine [address] [place] [address] Keaton Peñaloza, [address] [place] [address] documented as of this encounter Goals Goal Patient Goal Type Associated Problems Recent Progress Patient-Stated? Author safe transition to home General Yes Nini De Luna LSW Note: Evaluation of progress towards goal: safe transition to home with self care. documented as of this encounter Visit Diagnoses Diagnosis Type 2 diabetes mellitus without complication, with long-term current use of insulin ([facility]) documented in this encounter Additional Health Concerns Infection Onset Date Last Indicated Resolved Time Respiratory Rule-Out 11/02/2024 11/02/2024 025 12:18 PM EDT Assessment Noted Time PHQ-9 Depression Total Score: 17 024 1:37 PM EDT A Body Mass Index follow-up plan has been documented for the patient 04/23/2019 8:40 AM EST documented as of this encounter Care Teams Machine Silk Screen Printer Relationship Specialty Start Date End Date Keaton Peñaloza DO [address] [place] [address] PCP - General Internal Medicine 06/24/24 documented as of this encounter
--- OUTSIDE RECORDS SUMMARY | 2024-12-09 13:11 | XMS_ITS | Encounter Summary ---
Author Organization Emair s tem Address [id number] [address] [place] [address] Care Team Providers Care Cribber Name Role Phone Keaton Peñaloza DO Primary Care Provider [phone] Encounter Details Date Type Department Care Team (Late st Contact Info) Description 11/05/2024 Orders Only [facility] Internal Medicine - Family Medicine [address] [place] [address] Keaton Pñealoza DO [address] [place] [address] Social History Tobacco Use Types Packs/Day Years Used Date Smoking Tobacco: Former Cigarettes Q uit: 1976 Smokeless Tobacco: Never Comments:smoked for 1 year w hen was age 18 Alcohol Use Standard Drinks/Week Comments Yes 1 (1 standard drink = 0.6 oz pur e alcohol) socially [employer] Utilities Answer Date Recorded In the past 12 months has [employer], gas, oil, or water [employer] threatened to shut off services in your [...] 10/30/2024 How often do you attend chur or congregation services? More than 4 times per year 10/30/2024 Do you belong to any clubs o r organizations such as rastafarian groups, unions, fraternal or athletic groups, or [...] Answer Date Recorded Total Score 0 11/05/2024 [facility] - Occupational Stress Questionnaire Answer Date [...] Recorded Do you need help finding a [facility] career center and/or a training [...] Internal Medicine - Family Medicine [address] [place] [address] Keaton Peñaloza DO [address] [place] [address] documented as of this encounter Goals Goal [...] Time PHQ-9 Depression Total Score: 0 11/06/19 1:07 PM EDT A Body Mass Index follow-up plan has been documented for the patient 04/23/2019 8:40 AM EST documented as of this encounter Care Teams Cribber Relationship Specialty Start Date End Date Keaton Peñaloza DO [address] [place] [address] PCP - General Internal Medicine 06/24/24 documented as of this encounter
--- OUTSIDE RECORDS SUMMARY | 2024-12-09 13:11 | XMS_ITS | Encounter Summary ---
Author Organization [facility] Address [facility]-[id number] [address] [place] [address] Care Team Providers Care Iron Worker Foreman Name Role Phone Keaton Peñaloza DO Primary Care Provider [phone] Encounter Details Date Type Department Care Team (Late st Contact Info) Description 10/02/2023 Orders Only [facility] Internal Medicine - Family Medicine [address] [place] [address] Keaton Peñaloza DO [address] [place] [address] Social History Tobacco Use Types Packs/Day Years Used Date Smoking Tobacco: Former Cigarettes Q uit: 1976 Smokeless Tobacco: Never Comments:smoked for 1 year w hen was age 18 Alcohol Use Standard Drinks/Week Comments Yes 1 (1 standard drink = 0.6 oz pur e alcohol) socially [employer] Utilities Answer Date Recorded In the past 12 months has [employer], gas, oil, or water [employer] threatened to shut off services in your [...] any clubs o r organizations such as restorationist groups, unions, fraternal or athletic groups, or [...] Answer Date Recorded Total Score 17 08/20/2023 [facility] - Occupational Stress Questionnaire Answer Date [...] Recorded Do you need help finding a [facility] career center and/or a training program? No 02/27/2023 Hunger Screening Answer Date Recorded Within the past 12 months we worried whether our food would run out before we got money to buy more. Sometimes True Within the past 12 months th e [...] Internal Medicine - Family Medicine [address] [place] [address] Keaton Peñaloza DO [address] [place] [address] documented as of this encounter Goals Goal [...] documented as of this encounter Care Teams Iron Worker Foreman Relationship Specialty Start Date End Date Keaton Peñaloza DO [address] [place] [address] PCP - General Internal Medicine 06/24/24 documented as of this encounter
--- OUTSIDE RECORDS SUMMARY | 2024-12-09 13:11 | XMS_ITS | Encounter Summary ---
Author Organization [facility] Address [facility] [place] [address] Care Team Providers Care Customer Care Consultant Name Role Phone Yanick Cesar Unavailable Keaton Peñaloza Primary Care Provider [phone] Pauline Fatima BABY COUNSELOR Unavailable Unavailable Little Bowens RN Unavailable [phone] Arturo Mcdonald MD Unavailable [phone] Cailin Montero PA-C Unavailable [phone] Richardson Beltran MD Unavailable [phone] Source Comments In the event this information is protected by the Federal Confidentiality of Alcohol and Drug AbusePatient Records regulations: The Federal rules restrict any use of the information to criminally investigate or prosecute any alcohol or drug abuse patient.[facility] Encounter Details Date Type Department Care Team (Late st Contact Info) Description 09/02/2023 [place] [address] Provider, [facility] MRI Screening Questionnaire Completion Required [...] [email or web address]/. Last address used for calculation Tomasa ORTEZ [...] PM EDT Appointment Radiology Pet CT [address] [place] [address] Ct Chest without contrast 03/19/2025 3:20 PM EDT Appointment [facility] [place] [address] [place], [place] [address] MRI Rectum w/wo contrast 03/23/2025 2:15 PM EST Office Visit [facility] [address] [place] [address] [place] [address] 4 week follow up for MRI and Ct results 03/23/2025 2:40 PM EST Visit (SP) Office Hematology/Oncology [address] [place] [address] [place] [address] Richardson Beltran MD [address] [place] [address] 4 week follow up for MRI and Ct results documented as of this encounter Visit Diagnoses Not on filedocumented in this encounter Care Teams Customer Care Consultant Relationship Specialty Start Date End Date Keaton Peñaloza [address] [place] [address] PCP - General Internal Medicine 07/10/23 Yanick Cesar [address] [place] [address] Referring It Operations Analyst 09/05/18 Pauline Fatima LSW Store Shopper 07/10/23 Little Bowens, RN [address] [place] [address] Specialty Director Retail Brand Development Hematology/Oncology 09/19/23 Arturo Mcdonald MD [address] [facility] [place] [address] Physician Hematology/Oncology 09/19/23 01/03/24 Cailin Montero PA-C [address] [place] [address] [place] [address] Physician Wood Inspector Hematology/Oncology 09/19/23 Richardson Beltran MD [address] [place] [address] [place] [address] Physician Hematology/Oncology 01/04/24 documented as of this encounter
--- OUTSIDE RECORDS SUMMARY | 2024-12-09 13:11 | XMS_ITS | Encounter Summary ---
Author Organization [facility] [employer] [facility] tem Address [id number] [address] [place] [address] Care Team Providers Care Refrigeration Person Name Role Phone Keaton Peñaloza DO Primary Care Provider [phone] Encounter Details Date Type Department Care Team (Late Contact Info) Description 11/01/2022 Orders Only [facility] [address] [place] [phone] Briseyda Eastman, [employer] TE[employer]NICAL LEAD SENIOR DEVELOPER-SHELL [employer]ON[employer] [address] [place] [address] Social History Tobacco Use Types Packs/Day Years [...] Description 02/05/2025 1:30 PM EDT Office Visit [facility] Internal Medicine - Family Medicine [address] [place] [address] Keaton Peñaloza DO [address] [place] [address] documented as of this encounter Procedures Procedure [...] Chest Left Computed Radiogr aphy Briseyda Eastman [facility] DIAGNOSTIC IMAGING ORDERABLES Final Result * X-ray shoulder left minimum 2 views (09/26/2022) Anatomical Region Laterality Modality MSK, Upper Extremities, Shoulder Left Computed Radiography [facility]yda Eastman [facility] ORDER[facility]LES Final Result * MR brain with and without contrast (03/28/2022) Anatomical Region Laterality Modality Neuro, Head, Head and Neck, Neuro Covera N/A Magnetic Resonance Nino Kam DO [facility] [place]LES Salome l Result documented in [...] documented as of this encounter Care Teams Refrigeration Person Relationship Specialty Start Date End Date Keaton Peñaloza DO [address] [place] [address] PCP - General Internal Medicine 06/24/24 documented as of this encounter
--- OUTSIDE RECORDS SUMMARY | 2024-12-09 13:11 | XMS_ITS | Encounter Summary ---
Author Organization [facility] [facility] tem Address [id number] [address] [place] [address] Care Team Providers Care Field Counsel Name Role Phone JhKeaton DO Primary Care Provider [phone] Encounter Details Date Type Department Care Team (Late st Contact Info) Description 01/29/2023 Telephone [facility] Internal Medicine - Family Medicine [address] [place] [phone] Winter Snider CMA Social History Tobacco Use [...] she needs a new Prescription sent to [facility] for Basaglar since the units have changed. She would like a 90 day supply and it needs sent to the Pharmacy. documented in this encounter Plan of Treatment Upcoming Encounters Date Type Department Care Team (Late st Contact Info) Description 02/05/2025 1:30 PM EDT Office Visit [facility] Internal Medicine - Family Medicine [address] [place] [address] Keaton Peñaloza DO [address] [facility] [place] [address] documented as of this encounter Visit Diagnoses [...] documented as of this encounter Care Teams Field Counsel Relationship Specialty Start Date End Date Keaton Peñaloza DO [address] [place] [address] PCP - General Internal Medicine 06/24/24 documented as of this encounter
--- OUTSIDE RECORDS SUMMARY | 2024-12-09 13:11 | XMS_ITS | Encounter Summary ---
Author Organization [employer] [facility] tem Address [id number] [address] [place] [address] Care Team Providers Care Conveyor Installer Name Role Phone Keaton Peñaloza DO Primary Care Provider [phone] Reason for Visit * Reason Comments Med Refill Encounter Details Date Type Department Care Team ([facility] Contact Info) Description 09/03/2022 Refill [facility] General Surgery [address] [place] [phone] Christopher Amin DO [address], [place] [id number] Social History Tobacco Use Types Packs/Day Years [...] Upcoming Encounters Date Type Department Care Team ([facility] Contact Info) Description 02/05/2025 1:30 PM EDT Office Visit [facility] Internal Medicine - Family Medicine [address] [place] [phone] Keaton Peñaloza DO [address] [place] [address] documented as of this encounter Visit Diagnoses [...] documented as of this encounter Care Teams Conveyor Installer Relationship Specialty Start Date End Date Keaton Peñaloza DO [address] [place] [address] PCP - General Internal Medicine 06/24/24 documented as of this encounter
--- OUTSIDE RECORDS SUMMARY | 2024-12-09 13:11 | XMS_ITS | Encounter Summary ---
Author Organization [facility] tem Address [facility] [id number] [address] [place] [address] Care Team Providers Care Water Leak Repairer Name Role Phone Keaton Peñaloza DO Primary Care Provider [phone] Encounter Details Date Type Department Care Team ([facility] Contact Info) Description 01/18/2023 Orders Only [facility] Internal Medicine - Family Medicine [address] [place] [phone] Keaton Peñaloza DO [address] [place] [address] Social History Tobacco Use Types Packs/Day Years [...] Upcoming Encounters Date Type Department Care Team ([facility] Contact Info) Description 02/05/2025 1:30 PM EDT [facility] [address] [place] [phone] Keaton Peñaloza DO [address] [place] [address] documented as of this encounter Visit Diagnoses [...] documented as of this encounter Care Teams Water Leak Repairer Relationship Specialty Start Date End Date Keaton Peñaloza DO [address] [place] [address] PCP - General Internal Medicine 06/24/24 documented as of this encounter
--- OUTSIDE RECORDS SUMMARY | 2024-12-09 13:11 | XMS_ITS | Clinical Summary ---
Author Organization [facility] Address [address] [place] [address] Care Team Providers Care Supervisor Assembly Stock Name Role Phone Yanick Cesar Unavailable Keaton Peñaloza Primary Care Provider [phone] Pauline Fatima Unavailable Unavailable Little Bowens RN Unavailable [phone] Cailin Montero PA-C Unavailable [phone] Richardson Beltran MD Unavailable [phone] Allergies Active Allergy Reactions Criticality Noted Date [...] 81 mg by mouth every other day. 06/29/19 24 Active busPIRone (BUSPAR) 10 mg tablet Take by mouth. 12/25/19 23 Active ferrous sulfate 325 mg (65 mg iron) tablet Take 325 mg by mouth every 48 hours. 06/27/19 24 Active meclizine (ANTIVERT) 25 mg tab Take by mouth at bedtime as needed. 10/21/19 19 Active nystatin (MYCOSTATIN) ointment Apply 1 Application to affected area. 05/09/20 23 Active insulin glargine (LANTUS SOLOSTAR U-100 INSULIN) 100 unit/mL (3 mL) Inject 80 Units subcutaneously daily at bedtime. Active ondansetron (ZOFRAN) 8 mg tablet Take 1 tablet by mouth every 8 hours as needed for nausea/vomiting. 90 tablet 2 09/18/2023 3:58 PM EDT 09/12/19 24 Active atorvastatin (LIPITOR) 40 mg tablet Take 40 mg by mouth daily at bedtime. 08/01/19 24 Active clobetasol (TEMOVATE) 0.05 % cream Apply 1 Application to affected area two times a day. 08/07/19 24 Active metoprolol tartrate, short acting, (LOPRESSOR) 50 mg tablet Take 50 mg by mouth two times a day. 09/08/19 Active Mirtazapine (REMERON) 7.5 mg tablet Take 7.5 mg by mouth once daily. 09/12/19 Active JANUMET XR 50-1,000 mg TM24 Take 1 tablet by mouth every afternoon. 09/07/19 Active spironolactone (ALDACTONE) 25 mg tablet Take 50 mg by mouth every morning. 08/02/19 24 Active cannabidiol, CBD, (CANNABIDIOL ORAL) Take 10 mg by mouth daily at bedtime. Active semaglutide (OZEMPIC) 1 mg/dose (2 mg/1.5 mL) pen Inject 1 mg subcutaneously one time a week. Active polyethylene glycol 3350 17 gram packet Take 17 g by mouth. 10/28/19 24 Active prochlorperazi ne (COMPAZINE) 10 mg tablet Take 1 tablet by mouth every 6 hours as needed. 100 tablet 2 03/06/2024 1:18 PM EDT 02/06/20 24 Active capecitabine (XELODA) 500 mg tablet Take 5 tablets (2,500 mg) by mouth two times a day. 14 days on 7 days off 140 tablet 5 06/23/2024 8:59 AM EST 03/04/20 24 Active Additional Information Patient not taking.Reported on 07/29/2024 ondansetron (ZOFRAN) 8 mg tabletIndicati ons:Rectal cancer (HCC) Take 1 tablet by mouth every 8 hours as needed for nausea/vomiting. 90 tablet 2 05/16/2024 2:21 PM EST 05/16/20 24 Active prochlorperazi ne (COMPAZINE) 10 mg tabletIndicati ons:Rectal cancer (HCC) Take 1 tablet by mouth every 6 hours as needed. 100 tablet 2 05/16/2024 2:21 PM EST 05/16/20 24 Active neomycin 500 mg tabletIndicati ons:Rectal cancer (HCC) Take 2 tablets by mouth at 6 pm, again at 7 pm and at 11 pm the evening prior to surgery 6 tablet 07/28/2024 12:45 PM EDT 07/22/19 25 Active metroNIDAZOLE (FLAGYL) 500 mg tabletIndicati ons:Rectal cancer (HCC) Take 1 tablet by mouth at 6 pm, another at 7 pm and again at 11 pm, the evening prior to surgery 3 tablet 07/28/2024 12:45 PM EDT 07/22/19 25 Active iv contrast (will be provided with radiology test)Indicatio ns:Malignant neoplasm of rectum (HCC) MRI Rectum Inject, intravenously, once for 1 dose. No IV access, insert saline lock prior to the beginning of sedation, infusion, injection of imaging exam. Discontinue saline lock post exam. If Pt has a central line or IVAD, may access for administration according to line specific nursing protocol. Once exam is complete flush line and de-access according to line specific nursing protocol in the MR contrast administration guidelines link. 1 each 11/18/19 25 025 enteric contrast (will be provided with radiology test)Indicatio ns:Malignant neoplasm of rectum (HCC) MRI RECTUM WO/W. Administer, As Directed One Time Only, via Oral, Rectal, both Oral and Rectal, Enteric Tube, Stoma or Indwelling Catheter, Enteric Contrast as designated per enteric contrast guidelines 1 each 11/18/19 25 025 Active Problems Problem Noted Date Diagnosed Date Stage 3a chronic kidney disease 10/31/2023 Malignant neoplasm of rectum 10/16/2023 Hypertension Diabetes Encounters Date Type Department Care Team Description 11/17/2024 1:40 PM EDT Visit (SP) Office Hematology/Oncology [address] [place] [address] [place] [address] Richardson Beltran MD Malignant neoplasm of rectum (HCC) (Primary Dx); Type 2 diabetes mellitus with hyperglycemia, with long-term current use of insulin (HCC); Non-pressure chronic ulcer of skin of other sites with unspecified severity (HCC); Encounter for follow-up examination after completed treatment for conditions other than malignant neoplasm; [facility] (current) use of insulin (HCC); Personal history of malignant neoplasm of rectum, rectosigmoid junction, and anus; Non-pressure chronic ulcer of right lower leg, unspecified ulcer stage (HCC); Type 2 diabetes mellitus without complication, with long-term current use of insulin (HCC); Encounter for follow-up examination after completed treatment for malignant neoplasm; Family history of ischemic heart disease 11/17/2024 Travel 11/14/2024 3:15 PM EDT - 11/14/2024 11:59 PM EDT Hospital Encounter [facility] [place] [address] [place], [place] [id number] Malignant neoplasm of rectum (HCC) [C20] Discharge Disposition: Home 11/14/2024 Travel 11/12/2024 [place] [address] Provider, [facility] MRI Screening Questionnaire Completion Required from Last 3 Months Immunizations Immunization Administration Dates Next Due influenza (HD-IIV3) vaccine, age 65+ yr, high dose, trivalent, PF (FLUZONE HIGH-DOSE) 05/04/2017 influenza (IIV3) vaccine, ag e 6 mo [...] PHQ-2 Answer Date Recorded PHQ-2 score 0 11/17/2024 Area Deprivation Index Answer Date Krish rded National Score (1-100), lower number is lower ri sk 76 07/10/2023 State Score (1-10), lower number is lower risk 6 07/10/2023 Data from: https://www.neighborhoodatlas.medicine.[facility].edu/. Last address used for calculation [address] [facility] [facility] [facility] 07/10/2023 Comments No Sex and Gender Information Value Date Recorded Sex Assigned at Not on file Legal Sex Female 11:28 AM EDT Gender Identity Not on file Sexual Orientation Not on file Last Filed Vital Signs Vital Sign Reading Time Taken Comments Blood Pressure 153/83 11/17/2024 1:31 PM EDT Pulse 94 11/17/2024 1:31 PM EDT Temperature 36.6 C (97.8 F) 11/17/2024 1:31 PM EDT Respiratory Rate 16 11/17/2024 1:31 PM EDT Oxygen Saturation 93% 11/17/2024 1:31 PM EDT Inhaled Oxygen Concentration - - Weight 98.3 kg (216 lb 11.4 oz) 11/17/2024 1:31 PM EDT Height 172 cm (5' 7.72 ) 11/17/2024 1:31 PM EDT Body Mass Index 33.23 11/17/2024 1:31 PM EDT Plan of Treatment Upcoming Encounters Date Type Department Care Team (Latest Contact Info) Description 03/02/2025 12:45 PM EDT Appointment Radiology Pet CT [address] [facility] [place] [address] Ct Chest without contrast 03/19/2025 3:20 PM EDT Appointment [facility] [place] [address] [place], [place] [id number] MRI Rectum w/wo contrast 03/23/2025 2:15 PM EST Office Visit [facility] [address] [place] [address] 4 week follow up for MRI and Ct results 03/23/2025 2:40 PM EST Visit (SP) Office Hematology/Oncology [address] [place] [address] Richardson Beltran MD [address] [place] [address] 4 week follow up for MRI and Ct results Health Maintenance Due Date Last Done Comments Covid-19 Vaccine (#1) 1962 Diabetic Foot Exam 09/09/1967 Dilated Retinal Exam 09/09/1967 Cervical Cancer Screening 1968 Annual PCP Team Chronic Dise ase Visit 09/09/1975 Anxiety Screening 09/09/1975 Depression Screening 09/09/1975 Hepatitis C Screening 09/09/1975 LDL Cholesterol 09/09/1975 CT Colonography 2002 Cologuard (FIT-DNA) 2002 Fecal Occult Blood 2002 Pneumococcal Vaccine: 50+ (2 of 2 - PCV) 11/01/2017 11/01/2016 Mammogram Screening 08/07/2019 08/06/2018 Bone Density Screening 2022 Advance Directive Discussion 05/21/2024 Medicare Advantage Annual We llness Visit 05/21/2024 Influenza Vaccine (#1) 2025 7, 05/03/2017, 05/03/2017, Additional history exists HbA1C 05/07/2025 11/05/2024, 10/19, 05/08/2024, Additional history exists Urine Albumin:Creatinine Ratio 11/05/2025 0 11/05/2024, 12/27/2023, 01/17/2023 Serum Creatinine 11/17/2025 11/17/2024, , 08/14/2024, Additional history exists Sigmoidoscopy 07/29/2029 07/29/2024 DTaP,Tdap,Td Vaccine (2 - Td or Tdap) 08/21/2029 08/22/2019 Colonoscopy 06/26/2033 06/26/2023, 10/2023, 05/25/2023, Additional history exists Colorectal Cancer Screening 06/26/2033 Shingrix Vaccine Completed 04/30/2018, 12/21/2017 RSV Vaccine Completed 01/02/2024 Procedures Procedure Name Priority Date/Time Associated Diagnosis Comments FOLATE SERUM Routine 11/17/2024 12:50 PM EDT Malignant neoplasm of rectum (HCC) Type 2 diabetes mellitus with other specified complication, with long-term current use of insulin (HCC) Other depression Wound cellulitis Rectal cancer (HCC) Stage 3a chronic kidney disease (HCC) VITAMIN B12 BLOOD Routine 11/17/2024 12: 50 PM EDT Malignant neoplasm of rectum (HCC) Type 2 diabetes mellitus with other specified complication, with long-term current use of insulin (HCC) Other depression Wound cellulitis Rectal cancer (HCC) Stage 3a chronic kidney disease (HCC) FERRITIN BLD Routine 11/17/2024 12:50 PM EDT Malignant neoplasm of rectum (HCC) Type 2 diabetes mellitus with other specified complication, with long-term current use of insulin (HCC) Other depression Wound cellulitis Rectal cancer (HCC) Stage 3a chronic kidney disease (HCC) IRON + TIBC Routine 11/17/2024 12:50 PM EDT Malignant neoplasm of rectum (HCC) Type 2 diabetes mellitus with other specified complication, with long-term current use of insulin (HCC) Other depression Wound cellulitis Rectal cancer (HCC) Stage 3a chronic kidney disease (HCC) COMPREHENSIVE METABOLIC PANEL Routine 11/17/2024 12:50 PM EDT Malignant neoplasm of rectum (HCC) Type 2 diabetes mellitus with other specified complication, with long-term current use of insulin (HCC) Other depression Wound cellulitis Rectal cancer (HCC) Stage 3a chronic kidney disease (HCC) CBC + DIFF Routine 11/17/2024 12:50 PM EDT Malignant neoplasm of rectum (HCC) Type 2 diabetes mellitus with other specified complication, with long-term current use of insulin (HCC) Other depression Wound cellulitis Rectal cancer (HCC) Stage 3a chronic kidney disease (HCC) CEA BLD Routine 11/17/2024 12:50 PM EDT Malignant neoplasm of rectum (HCC) Type 2 diabetes mellitus with other specified complication, with long-term current use of insulin (HCC) Other depression Wound cellulitis Rectal cancer (HCC) Stage 3a chronic kidney disease (HCC) MRI RECTUM WO/W IVCON Routine 11/14/2024 4:25 PM EDT Malignant neoplasm of rectum (HCC) Type 2 diabetes mellitus with other specified complication, with long-term current use of insulin (HCC) Other depression Wound cellulitis Rectal cancer (HCC) Stage 3a chronic kidney disease (HCC) SIGMOIDOSCOPY Routine 07/29/2024 1:16 PM EDT Rectal cancer (HCC) from Last 3 Months or Most Recently Relevant to Health Maintenance Results * VITAMIN B12 (11/17/2024 12:50 PM EDT) Vitamin B12 368 232 - 1,245 pg/mL 11/18/2024 1:49 AM EDT [facility] Blood BLOOD SPECIMEN / Unknown Venipuncture / Unknown 11/17/2024 12:50 PM EDT 11/17/2024 12:51 PM EDT Richardson Beltran MD LABORATORY Final Result [facility] [address] [facility] [facility] [address] [address], [place] * IRON AND TIBC (11/17/2024 12:50 PM EDT) Iron 65 41 - 186 ug/dL 11/18/2024 1:31 AM EDT [facility] TIBC 341 232 - 386 ug/dL 11/18/2024 1:31 AM EDT [facility] Transferrin Saturation 19.1 15.0 - 57.0 % 11/18/2024 1:31 AM EDT [facility] Blood BLOOD SPECIMEN / Unknown Venipuncture / Unknown 11/17/2024 12:50 PM EDT 11/17/2024 12:51 PM EDT us Richardson Beltran MD LABORATORY Final Result Performing Organization Address City/[facility]/ZIP Co de Phone Number [facility] [address] [address], [place] * FOLATE, SERUM (11/17/2024 12:50 PM EDT) Folate 11.9 >4.7 ng/mL 11/18/2024 1:49 AM EDT [facility] Blood BLOOD SPECIMEN / Unknown Venipuncture / Unknown 11/17/2024 12:50 PM EDT 11/17/2024 12:51 PM EDT us Richardson Beltran MD LABORATORY Final Result [facility] [address] [facility] [address] [address], [place] * FERRITIN (11/17/2024 12:50 PM EDT) Ferritin 126.0 14.7 - 205.1 ng/mL 11/18/2024 6:35 AM EDT [facility] Blood BLOOD SPECIMEN / Unknown Venipuncture / Unknown 11/17/2024 12:50 PM EDT 11/17/2024 12:51 PM EDT Richardson Beltran MD LABORATORY Final Result [facility] [address] [facility] [address] [place] [address], [place] * (ABNORMAL) COMPREHENSIVE METABOLIC PANEL (11/17/2024 12:50 PM EDT) [facility] Protein, Total 6.9 6.3 - 8.0 g/dL 11/17/2024 1:15 PM EDT [facility] Albumin 3.9 3.9 - 4.9 g/dL 11/17/2024 1:15 PM EDT [facility] Calcium, Total 10.2 8.5 - 10.2 mg/dL 11/17/2024 1:15 PM EDT [facility] Bilirubin, Total 0.9 0.2 - 1.3 mg/dL 11/17/2024 1:15 PM EDT [facility] Alkaline Phosphatase 101 34 - 123 U/L 11/17/2024 1:15 PM EDT [facility] AST 10(L) 13 - 35 U/L 11/17/2024 1:15 PM EDT [facility] ALT 11 7 - 38 U/L 11/17/2024 1:15 PM EDT [facility] Glucose 498(H) 74 - 99 mg/dL 11/17/2024 1:15 PM EDT [facility] Comment: The [place] Diabetes Association (ADA) provides guidance for cutoff [...] Standards of Medical Care in Diabetes 2016, [place] [employer] Association. Diabetes Care. 2016.39(Suppl 1). BUN 15 7 - 21 mg/dL 11/17/2024 1:15 PM EDT [facility] Creatinine 0.95 0.58 - 0.96 mg/dL 11/17/2024 1:15 PM EDT [facility] Sodium 135(L) 136 - 144 mmol/L 11/17/2024 1:15 PM EDT [facility] Potassium 4.5 3.7 - 5.1 mmol/L 11/17/2024 1:15 PM EDT [facility] Chloride 99 98 - 107 mmol/L 11/17/2024 1:15 PM EDT [facility] CO2 24 22 - 30 mmol/L 11/17/2024 1:15 PM EDT [facility] Anion Gap 12 8 - 15 mmol/L 11/17/2024 1:15 PM EDT [facility] Estimated Glomerular Filtration Rate 66 >=60 mL/min/1. 73m 11/17/2024 1:15 PM EDT [facility] Comment:Estimated Glomerular Filtration Rate (eGFR) is [...] BLOOD SPECIMEN / Unknown Venipuncture / Unknown 11/17/2024 12:50 PM EDT 11/17/2024 12:51 PM EDT Richardson Beltran MD LABORATORY Final Result [facility] [address] [place] [address] * (ABNORMAL) CARCINOEMBRYONIC ANTIGEN (11/17/2024 12:50 PM EDT) CEA 4.8(H) <=2.9 ng/mL 11/18/2024 10:35 AM EDT [facility] Comment: Carcinoembryonic antigen test is used as an aid in monitoring response to treatment or recurrence in patients with established colorectal, breast, lung, prostatic, pancreatic, and ovarian carcinomas. Clinical correlation is required. The Carcinoembryonic antigen test was performed using the [employer] DXI paramagnetic particle chemiluminescent immunoassay method. Results obtained with different assay methods or kits cannot be used interchangeably. Blood BLOOD SPECIMEN / Unknown Venipuncture / Unknown 11/17/2024 12:50 PM EDT 11/17/2024 12:51 PM EDT us Richardson Beltran MD LABORATORY Final Result [facility] [address] [place] [address], [place] * (ABNORMAL) COMPLETE BLOOD COUNT AND DIFFERENTIAL (11/17/2024 12:50 PM EDT) WBC 6.48 3.70 - 11.00 k/uL 11/17/2024 12:56 PM EDT [facility] RBC 4.53 3.90 - 5.20 m/uL 11/17/2024 12:56 PM EDT [facility] Hemoglobin 12.7 11.5 - 15.5 g/dL 11/17/2024 12:56 PM EDT [facility] Hematocrit 36.6 36.0 - 46.0 % 11/17/2024 12:56 PM EDT [facility] MCV 80.8 80.0 - 100.0 fL 11/17/2024 12:56 PM EDT [facility] MCH 28.0 26.0 - 34.0 pg 11/17/2024 12:56 PM EDT [facility] MCHC 34.7 30.5 - 36.0 g/dL 11/17/2024 12:56 PM EDT [facility] RDW-CV 12.7 11.5 - 15.0 % 11/17/2024 12:56 PM EDT [facility] Platelet Count 294 150 - 400 k/uL 11/17/2024 12:56 PM EDT [facility] MPV 9.1 9.0 - 12.7 fL 11/17/2024 12:56 PM EDT [facility] Neutrophils % 80.0 % 11/17/2024 12:56 PM EDT [facility] Abs Neut 5.19 1.45 - 7.50 k/uL 11/17/2024 12:56 PM EDT [facility] Lymphocytes % 7.6 % 11/17/2024 12:56 PM EDT [facility] Abs Lymph 0.49(L) 1.00 - 4.00 k/uL 11/17/2024 12:56 PM EDT [facility] Monocytes % 7.4 % 11/17/2024 12:56 PM EDT [facility] Abs Schuyler 0.48 <0.87 k/uL 11/17/2024 12:56 PM EDT [facility] Eosinophils % 3.9 % 11/17/2024 12:56 PM EDT [facility] Abs Eosin 0.25 <0.46 k/uL 11/17/2024 12:56 PM EDT [facility] Basophils % 0.5 % 11/17/2024 12:56 PM EDT [facility] Abs Baso 0.03 <0.11 k/uL 11/17/2024 12:56 PM EDT [facility] Immature Granulocytes % 0.6 % 11/17/2024 12:56 PM EDT [facility] Abs Immature Gran 0.04 <0.10 k/uL 11/17/2024 12:56 PM EDT [facility] NRBC 0.0 /100 WBC 11/17/2024 12:56 PM EDT [facility] Absolute nRBC <0.01 <0.01 k/uL 11/17/2024 12:56 PM EDT [facility] Diff Type Auto 11/17/2024 12:56 PM EDT [facility] Blood BLOOD SPECIMEN / Unknown Venipuncture / Unknown 11/17/2024 12:50 PM EDT 11/17/2024 12:51 PM EDT us Richardson Beltran MD LABORATORY Final Result [facility] [address] [place] [address] * MRI RECTUM WO/W IVCON (11/14/2024 4:25 PM EDT) Anatomical Region Laterality Modality Pelvis Magnetic Resonan ce 11/14/2024 4:25 PM EDT Impressions 11/17/2024 8:41 AM EDT IMPRESSION: Since 07/01/2024 and multiple remote exams , post treatment primary tumor assessment: Complete/near complete response. -T2 hypointense scar/fibrosis along the anterior rectal wall with no definite viable tumor. Please correlate with direct visualization and/or biopsy. mrTRG: Grade 2 - Good response Suspicious Mesorectal lymph nodes: No. Suspicious Extramesorectal lymph nodes: No. Director Product Management: FLAVIA Transcribe Date/Time: Nov 17 2024 8:21A Dictated by : PAWEL ODONNELL MD This examination was interpreted and the report reviewed and electronically signed by: PAWEL ODONNELL MD on Nov 17 2024 8:38AM EST Narrative 11/17/2024 8:41 AM EDT * * *Final Report* * * DATE OF EXAM: Nov 14 2024 4:25PM [facility] 0754 - MRI RECTUM WO/W IVCON / PROCEDURE REASON: multiple diagnoses * * * * Physician Interpretation * * * * MRI OF THE PELVIS WITHOUT AND WITH CONTRAST: RECTAL CANCER RESTAGING CLINICAL HISTORY: 68 year old female with Rectal cancer-started planned YANIV. Started radiation and xeloda on October 16, 2023.She will complete xeloda and xrt on 11/23/2023.Proceed with CAPOX. COMPARISON: Multiple rectal MR I has most recently 07/01/2024 and as remote as 09/04/2023 TECHNIQUE: Magnet: 3.0T scanner. Multiplanar MRI with multiple sequences before and after contrast. Contrast: IV: 9 ml of Elucirem Rectal: 60ml ml of Surgilube RESULT: TREATED PRIMARY TUMOR CHARACTERISTICS (Compare to pre-treatment): DWI (with associated low ADC) ? restricted diffusion and low ADC in tumor or tumor bed: Absent. MRI-T2W: Entirely dark T2 signal/scar. T2 bright mucin (cannot distinguish between cellular and acellular mucin): Absent. Description: Previously identified admixed areas of T2 intermediate signal intensity along the anterolateral wall appeared to have resolved and replaced with T2 hypointense scar/fibrosis. Distance of the inferior margin of treated tumor to the anal verge: 9.1 cm (2:25) Distance of the inferior margin to the top of sphincter complex/anorectal junction: 6.2 cm (2:25) Relationship to anterior peritoneal reflection: Below Craniocaudal length: 3.1 cm (2:20), most recently 2.8 cm Pre-treatment craniocaudal length: 6.9 cm Tumor location: Mid rectum (5-10 cm) Maximal wall thickness: 0.9 cm (6:19), most recently 0.9 cm Pre-treatment wall thickness: 1.97 cm Invasion of anal sphincter complex: Absent. Anal canal involvement: None. TUMOR DEPOSITS AND EXTRAMURAL VASCULAR INVASION (EMVI): Tumor deposits:(separate from metastatic lymph nodes): No. EMVI: No (none evident pre-treatment). MESORECTAL FASCIA (MRF): Shortest distance of extraluminal part of the tumor to MRF: Tumor does not extend into the mesorectal fat. Tumor extension through the peritonealized portion of the rectum into peritoneal fat: No extension into peritoneal fat. Is there a separate tumor deposit, LN or EMVI threatening (?1mm and ?2 mm) or invading (< 1 mm) the MRF? No. Comments: N/A T4 disease interval change: N/A POST-TREATMENT TUMOR REGRESSION: mrTRG: Grade 2 - Good response LYMPH NODES: Mesorectal/superior rectal lymph nodes and/or tumor deposits: N0 (no visible lymph nodes/deposits or only < 5 mm short axis) Suspicious extra mesorectal lymph nodes: None. OTHER FINDINGS: Unchanged 2.7 cm unilocular right ovarian cyst. Procedure Note Provider, [facility] [place] - 11/17/2024 * * *Final Report* * * DATE OF EXAM: Nov 14 2024 4:25PM [facility] 0754 - MRI RECTUM WO/W IVCON / PROCEDURE REASON: multiple diagnoses * * * * Physician Interpretation * * * * MRI OF THE PELVIS WITHOUT AND WITH CONTRAST: RECTAL CANCER RESTAGING CLINICAL HISTORY: 68 year old female with Rectal cancer-started planned YANIV. Started radiation and xeloda on October 16, 2023.She will complete xeloda and xrt on 11/23/2023.Proceed with CAPOX. COMPARISON: Multiple rectal MR I has most recently 07/01/2024 and as remote as 09/04/2023 TECHNIQUE: Magnet: 3.0T scanner. Multiplanar MRI with multiple sequences before and after contrast. Contrast: IV: 9 ml of Elucirem Rectal: 60ml ml of Surgilube RESULT: TREATED PRIMARY TUMOR CHARACTERISTICS (Compare to pre-treatment): DWI (with associated low ADC) ? restricted diffusion and low ADC in tumor or tumor bed: Absent. MRI-T2W: Entirely dark T2 signal/scar. T2 bright mucin (cannot distinguish between cellular and acellular mucin): Absent. Description: Previously identified admixed areas of T2 intermediate signal intensity along the anterolateral wall appeared to have resolved and replaced with T2 hypointense scar/fibrosis. Distance of the inferior margin of treated tumor to the anal verge: 9.1 cm (2:25) Distance of the inferior margin to the top of sphincter complex/anorectal junction: 6.2 cm (2:25) Relationship to anterior peritoneal reflection: Below Craniocaudal length: 3.1 cm (2:20), most recently 2.8 cm Pre-treatment craniocaudal length: 6.9 cm Tumor location: Mid rectum (5-10 cm) Maximal wall thickness: 0.9 cm (6:19), most recently 0.9 cm Pre-treatment wall thickness: 1.97 cm Invasion of anal sphincter complex: Absent. Anal canal involvement: None. TUMOR DEPOSITS AND EXTRAMURAL VASCULAR INVASION (EMVI): Tumor deposits:(separate from metastatic lymph nodes): No. EMVI: No (none evident pre-treatment). MESORECTAL FASCIA (MRF): Shortest distance of extraluminal part of the tumor to MRF: Tumor does not extend into the mesorectal fat. Tumor extension through the peritonealized portion of the rectum into peritoneal fat: No extension into peritoneal fat. Is there a separate tumor deposit, LN or EMVI threatening (?1mm and ?2 mm) or invading (< 1 mm) the MRF? No. Comments: N/A T4 disease interval change: N/A POST-TREATMENT TUMOR REGRESSION: mrTRG: Grade 2 - Good response LYMPH NODES: Mesorectal/superior rectal lymph nodes and/or tumor deposits: N0 (no visible lymph nodes/deposits or only < 5 mm short axis) Suspicious extra mesorectal lymph nodes: None. OTHER FINDINGS: Unchanged 2.7 cm unilocular right ovarian cyst. IMPRESSION IMPRESSION: Since 07/01/2024 and multiple remote exams , post treatment primary tumor assessment: Complete/near complete response. -T2 hypointense scar/fibrosis along the anterior rectal wall with no definite viable tumor. Please correlate with direct visualization and/or biopsy. mrTRG: Grade 2 - Good response Suspicious Mesorectal lymph nodes: No. Suspicious Extramesorectal lymph nodes: No. Director Product Management: PSCB Transcribe Date/Time: Nov 17 2024 8:21A Dictated by : PAWEL ODONNELL MD This examination was interpreted and the report reviewed and electronically signed by: PAWEL ODONNELL MD on Nov 17 2024 8:38AM EST Richardson Beltran MD MRI-[facility]AMA Final Result * SIGMOIDOSCOPY (07/29/2024 1:16 PM EDT) Anatomical Region Laterality Modality Other 07/29/2024 12:3 9 PM EDT Narrative 07/29/2024 1:21 PM EDT [facility] Gastrointestinal Endoscopy Patient Name: Dayanna Haddad Procedure Date: 07/29/2024 12:39 PM Date of : 1955 Admit Type: Outpatient Age: 68 Room: [place] [address] Gender: Female Note Status: Finalized Attending MD: Evans Garza MD, [id number] Procedure: Flexible Sigmoidoscopy Indications: High risk colon [...] passed under direct vision. The PCF [id number] was introduced through the anus and advanced [...] post-treatment MRI Procedure Code(s): --- Professional --- 23449, Sigmoidoscopy, flexible; diagnostic, including collection of specimen(s) by brushing or washing, when performed (separate procedure) Diagnosis Code(s): --- Professional --- Z85.048, Personal history of other malignant neoplasm of rectum, rectosigmoid junction, and anus CPT copyright 2020 [employer]. All rights reserved. The codes documented in this report are preliminary and upon manager customer review may be revised to meet current [...] Garza MD DIGESTIVE DISEASE Final Resul t from Last 3 Months or Most Recently Relevant to Health Maintenance Insurance [facility] DUAL COMPLETE HMO POS SNP Care Teams Supervisor Assembly Stock Relationship Specialty Start Date End Date Keaton Peñaloza [address] [place] [address] PCP - General Internal Medicine 07/10/23 Yanick Cesar [address] [place] [address] Change Roof Bolter 09/05/18 Pauline Fatima LSW Batch Roller Operator 07/10/23 Little Bowens RN [address] [place] [address] [place] [address] Specialty Stonework Tracer Hematology/Oncology 09/19/23 Cailin Montero PA-C [address] [place] [address] Physician Spent Grain Dryer Hematology/Oncology 09/19/23 Richardson Beltran MD [address] [place] [address] Physician Hematology/Oncology 01/04/24
--- OUTSIDE RECORDS SUMMARY | 2024-12-09 13:11 | XMS_ITS | Encounter Summary ---
Author Organization [facility] Address [facility] [id number] [address] [place] [address] Care Team Providers Care Dna Analyst Name Role Phone Keaton Peñaloza Joy BUNN Primary Care Provider Encounter Details Date Type Department Care Team (Late st Contact Info) Description 02/14/2024 Orders Only [facility] Internal Medicine - Family Medicine [address] [place] [address] Ref Prov, [place] [address] Social History Tobacco Use Types Packs/Day Years [...] often do you attend chur ch or gnosticist services? More than 4 times per year [...] Answer Date Recorded Total Score 17 08/20/2023 [facility] of Occupat ional Health - Occupational [...] Recorded Do you need help finding a [facility] career center and/or a training program? [...] Internal Medicine - Family Medicine [address] [place] [address] Keaton Peñaloza DO [address] [place] [address] documented as of this encounter Goals Goal [...] EDT) us Not In System Ref Prov MO IMAGING Final Res ult Performing Organization Address [facility] [[email or web address]] Co de Phone Number MANUALLY TRANSCRIBED RESULTS * Multiple labs (02/13/2024 1:17 PM EDT) us Not In System Ref Prov MO IMAGING Final Res ult Performing Organization Address [facility] [[email or web address]] Co de Phone Number MANUALLY TRANSCRIBED RESULTS [...] documented as of this encounter Care Teams Dna Analyst Relationship Specialty Start Date End Date Keatno Peñaloza DO [address] [place] [id number] PCP - General Internal Medicine 06/24/24 documented as of this encounter
--- OUTSIDE RECORDS SUMMARY | 2024-12-09 13:11 | XMS_ITS | Clinical Summary ---
Author Organization [facility] Address [address] [place] [address] Care Team Providers Care Ground Support Equipment Mechanic Name Role Phone Unavailable Primary Care Provider Unavailabl e Social History Tobacco Use Types Packs/Day Years Used Date Smoking Tobacco: Never Assessed [place] Safety & Environment Answer Date Rec orded Fear of Current or Ex-Partner Not on file Emotionally Abused Not on file 08/10/2023 Physically Abused Not on file 08/10/2023 Sexually Abused Not on file 08/10/2023 Physically or Sexually Abused Not on file Comments Unknown Sex and Gender Information Value Date Recorded Sex Assigned at Not on file Legal Sex Female 11:24 AM EDT Gender Identity Not on file Sexual Orientation Not on file Plan of Treatment Not on file
--- OUTSIDE RECORDS SUMMARY | 2024-12-09 13:11 | XMS_ITS | Encounter Summary ---
Author Organization [employer] Sys tem Address [facility] [id number] [address] [place] [address] Care Team Providers Care Box Office Agent Name Role Phone JhKeaton DO Primary Care Provider [phone] Encounter Details Date Type Department Care Team (Late st Contact Info) Description 04/11/2024 Telephone [facility] Internal Medicine - Family Medicine [address] [place] [address] Vannessa Harris CMA Social History Tobacco Use Types Packs/Day Years Used Date Smoking Tobacco: Former Cigarettes Q uit: 1976 Smokeless Tobacco: Never Comments:smoked for 1 year w hen was age 18 Alcohol Use Standard Drinks/Week Comments Yes 1 (1 standard drink = 0.6 oz pur e alcohol) socially [employer] Utilities Answer Date Recorded In the past [...] often do you attend chur ch or voodoo services? More than 4 times [...] Answer Date Recorded Total Score 17 08/20/2023 [facility] ional [facility] - Occupational Stress Questionnaire Answer Date [...] Recorded Do you need help finding a [facility] career center and/or a training program? [...] Internal Medicine - Family Medicine [address] [place] [address] Keaton Peñaloza DO [address] [place] [address] documented as of this encounter Goals Goal [...] documented as of this encounter Care Teams Box Office Agent Relationship Specialty Start Date End Date Keaton Peñaloza DO [address] [place] [address] PCP - General Internal Medicine 06/24/24 documented as of this encounter
--- OUTSIDE RECORDS SUMMARY | 2024-12-09 13:11 | XMS_ITS | Encounter Summary ---
Author Organization [employer] Sys tem Address [facility] [id number] [address] [place] [address] Care Team Providers Care Swing Saw Operator Name Role Phone MarissarocioKeaton DO Primary Care Provider [phone] Encounter Details Date Type Department Care Team (Late st Contact Info) Description 05/01/2024 Telephone [facility] Internal Medicine - Family Medicine [address] [place] [address] Yolanda Roth CMA Social History Tobacco Use Types Packs/Day Years Used Date Smoking Tobacco: Former Cigarettes Q uit: 1976 Smokeless Tobacco: Never Comments:smoked for 1 year w hen was age 18 Alcohol Use Standard Drinks/Week Comments Yes 1 (1 standard drink = 0.6 oz pur e alcohol) socially [employer] Utilities Answer Date Recorded In the past [...] often do you attend chur ch or taoism services? More than 4 times per year [...] Internal Medicine - Family Medicine [address] [place] [address] Keaton Peñaloza DO [address] [place] [address] documented as of this encounter Goals Goal [...] documented as of this encounter Care Teams Swing Saw Operator Relationship Specialty Start Date End Date Keaton Peñaloza DO [address] [place] [address] PCP - General Internal Medicine 06/24/24 documented as of this encounter
--- OUTSIDE RECORDS SUMMARY | 2024-12-09 13:11 | XMS_ITS | Encounter Summary ---
Author Organization [facility] [employer] [facility] Address [facility] [id number] [address] [place] [address] Care Team Providers Care Supervisor Assembly Room Name Role Phone Keaton Peñaloza DO Primary Care Provider [phone] Reason for Visit * Reason Comments Med Refill Encounter Details Date Type Department Care Team (Late st Contact Info) Description 09/24/2023 Refill [facility] Internal Medicine - Family Medicine [address] [place] [address] Keaton Peñaloza DO [address] [place] [address] Mixed hyperlipidemia Social History Tobacco Use Types Packs/Day Years Used Date Smoking Tobacco: Former Cigarettes Q uit: 1976 Smokeless Tobacco: Never Comments:smoked for 1 year w hen was age 18 Alcohol Use Standard Drinks/Week Comments Yes 1 (1 standard drink = 0.6 oz pur e alcohol) socially [employer] Utilities Answer Date Recorded In the past 12 months has [employer], [employer], oil, or water [employer] threatened to shut off services in your [...] How often do you attend chur or pentecostalism services? More than 4 times per year 02/27/2023 Do you belong to any clubs o r organizations such as latter day groups, unions, fraternal or athletic groups, or [...] Answer Date Recorded Total Score 17 08/20/2023 [facility] of Occupat ional Health - [...] Recorded Do you need help finding a [facility] career center and/or a training program? [...] Internal Medicine - Family Medicine [address] [place] [address] Keaton Peñaloza DO [address] [place] [address] documented as of this encounter Goals Goal [...] as of this encounter Care Teams Supervisor Assembly Room Relationship Specialty Start Date End Date Keaton Peñaloza DO [address] [place] [address] PCP - General Internal Medicine 06/24/24 documented as of this encounter
--- OUTSIDE RECORDS SUMMARY | 2024-12-09 13:11 | XMS_ITS | Encounter Summary ---
Author Organization [employer] Sys tem Address [facility] [id number] [address] [place] [address] Care Team Providers Care Forklift Truck Operator Name Role Phone JhKeaton DO Primary Care Provider [phone] Encounter Details Date Type Department Care Team (Late st Contact Info) Description 11/11/2024 Telephone [facility] Internal Medicine - Family Medicine [address] [place] [address] Yolanda Roth CMA Social History Tobacco Use Types Packs/Day Years Used Date Smoking Tobacco: Former Cigarettes Q uit: 1976 Smokeless Tobacco: Never Comments:smoked for 1 year w hen was age 18 Alcohol Use Standard Drinks/Week Comments Yes 1 (1 standard drink = 0.6 oz pur e alcohol) socially [employer] Utilities Answer Date Recorded In the past [...] often do you attend chur ch or restorationism services? More than 4 times per year 10/30/2024 Do you belong to any clubs o r organizations such as presybeterian groups, unions, fraternal or athletic groups, or [...] Answer Date Recorded Total Score 0 11/05/2024 [facility] of Occupat ional Health - [...] Telephone Encounter - Yolanda Roth CMA - 11/11/2024 10:58 AM EDT Reviewed. Her A1c is still very high. Keep taking the Lantus 50 units every night. Start taking the Ozempic 2 mg weekly Once we get the glucose monitor set up, then we can adjust the medications even better. documented in this encounter Plan of Treatment Upcoming Encounters Date Type Department Care Team (Late st Contact Info) Description 02/05/2025 1:30 PM EDT Office Visit [facility] Internal Medicine - Family Medicine [address] [place] [address] Keaton Peñaloza DO [address] [place] [address] documented as of this encounter Goals Goal [...] documented as of this encounter Care Teams Forklift Truck Operator Relationship Specialty Start Date End Date Keaton Peñaloza DO [address] [place] [address] PCP - General Internal Medicine 06/24/24 documented as of this encounter
--- OUTSIDE RECORDS SUMMARY | 2024-12-09 13:11 | XMS_ITS | Encounter Summary ---
Author [facility] Address [facility] [id number] [address] [place] [address] Care Team Providers Care Radiation Officer Name Role Phone Keaton Peñaloza DO Primary Care Provider [phone] Encounter Details Date Type Department Care Team (Late st Contact Info) Description 12/12/2023 Orders Only [facility] Internal Medicine - Family Medicine [address] [place] [address] Keaton Peñaloza DO [address] [place] [address] Social History Tobacco Use Types Packs/Day Years Used Date Smoking Tobacco: Former Cigarettes Q uit: 1976 Smokeless Tobacco: Never Comments:smoked for 1 year w hen was age 18 Alcohol Use Standard Drinks/Week Comments Yes 1 (1 standard drink = 0.6 oz pur e alcohol) socially [employer] Utilities Answer Date Recorded In the past 12 months has [employer], gas, oil, or water [employer] threatened to shut off services in [...] How often do you attend chur or catholic services? More than 4 times per year 02/27/2023 Do you belong to any clubs o r organizations such as oriental orthodox groups, unions, fraternal or athletic groups, [...] Score 17 08/20/2023 [facility] - Occupational Stress Questionnaire Answer Date [...] Recorded Do you need help finding a advent[facility] health tulareal career center and/or a training program? No [...] Internal Medicine - Family Medicine [address] [facility] [place] [address] Keaton Peñaloza DO [address] [place] [address] documented as of this encounter Goals Goal [...] documented as of this encounter Care Teams Radiation Officer Relationship Specialty Start Date End Date Keaton Peñaloza DO [address] [facility] [place] [address] PCP - General Internal Medicine 06/24/24 documented as of this encounter
--- OUTSIDE RECORDS SUMMARY | 2024-12-09 13:11 | XMS_ITS | Patient Health Record ---
Author Organization [facility] Address [address] [place] [address] Care Team Providers Care Director Of Intelligence Name Role Phone Surya Michel BUNN Primary [...] Insured Coverage Start Date Coverage End Date [facility] PRIMARY MEDICARE [address] [place] [address] [id number] Dayanna Deshpande Self - patient is the insured 5
--- OUTSIDE RECORDS SUMMARY | 2024-12-09 13:12 | XMS_ITS | Encounter Summary ---
Author Organization [employer] Address [facility]-[id number] [address] [place] [address] Care Team Providers Care Bmw Sales Consultant Name Role Phone Keaton Peñaloza DO Primary Care Provider [phone] Reason for Visit * Reason Comments Med Refill Encounter Details Date Type Department Care Team (Late st Contact Info) Description 11/28/2024 Refill [facility] Internal Medicine - Family Medicine [address] [place] [address] Keaton Peñaloza DO [address] [place] [address] Type 2 diabetes mellitus with microalbuminuria, with long-term current use of insulin ([facility]) Social History Tobacco Use Types Packs/Day Years Used Date Smoking Tobacco: Former Cigarettes Q uit: 1976 Smokeless Tobacco: Never Comments:smoked for 1 year w hen was age 18 Alcohol Use Standard Drinks/Week Comments Yes 1 (1 standard drink = 0.6 oz pur e alcohol) socially [employer] Utilities Answer Date Recorded In the past 12 months has [employer], gas, oil, or water [employer] threatened to shut off services in your [...] week 10/30/2024 How often do you attend [facility] or confucianist services? More than 4 times per year 10/30/2024 Do you belong to any clubs o r organizations such as amish groups, unions, fraternal or athletic groups, or [...] Answer Date Recorded Total Score 0 11/05/2024 [facility] of Occupat ional Health - Occupational Stress [...] Recorded Do you need help finding a [facility] career center and/or a training [...] Internal Medicine - Family Medicine [address] [place] [address] Keaton Peñaloza DO [address] [place] [address] documented as of this encounter Goals Goal Patient Goal Type Associated Problems Recent Progress Patient-Stated? Author safe transition to home General Yes Nini De Luna LSW Note: Evaluation of progress towards goal: safe transition to home with self care. documented as of this encounter Visit Diagnoses Diagnosis Type 2 diabetes mellitus with microalbuminuria, with long-term current use of insulin ([facility]) documented in this encounter Additional Health Concerns Assessment Noted Time PHQ-9 Depression Total Score: 0 11/06/19 25 1:07 PM EDT A Body Mass Index follow-up plan has been documented for the patient 04/23/2019 8:40 AM EST documented as of this encounter Care Teams Bmw Sales Consultant Relationship Specialty Start Date End Date Keaton Peñaloza DO [address] [place] [address] PCP - General Internal Medicine 06/24/24 documented as of this encounter
--- OUTSIDE RECORDS SUMMARY | 2024-12-09 13:12 | XMS_ITS | Encounter Summary ---
Author [facility] Address [facility] [id number] [address] 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 More than 4 times per year 02/27/2023 Do you belong to any clubs o r organizations such as judaism groups, unions, fraternal or athletic groups, or [...] Answer Date Recorded Total Score 0 06/12/2023 [facility] of Occupat ional Health - Occupational [...] Internal Medicine - Family Medicine [address] [place] [address] Keaton Peñaloza DO [address] [place], [place] [address] documented as of this encounter Results * (ABNORMAL) CEA (06/14/2023 1:44 PM EST) CEA 4.5(H) 0.0 - 3.0 ng/mL 06/14/2023 10:58 PM EST [facility] Comment: 0.0-3.0 ng/mL FOR NON SMOKERS 0.0-5.0 ng/mL FOR SMOKERS The method used for this test is Meseret Fredis DXI chemiluminescent immunoassay. Values obtained by different assay methods cannot be used interchangeably. Blood Serum / Unknown 06/14/2023 1 :44 PM EST 06/14/2023 10:13 PM EST Keaton Peñaloza DO LAB BLOOD ORDERABLES Final Resul t [facility] [address], [address] [place] [address] documented in this encounter Visit Diagnoses Diagnosis [...] documented as of this encounter Care Teams Crop Duster Relationship Specialty Start Date End Date Keaton Peñaloza DO [address] [place] [address] PCP - General Internal Medicine 06/24/24 documented as of this encounter
--- OUTSIDE RECORDS SUMMARY | 2024-12-09 13:12 | XMS_ITS | Encounter Summary ---
Author Organization [employer] Sys [employer] Address [facility] [id number] [address] [place] [address] Care Team Providers Care Post Secondary Professional Name Role Phone Keaton Peñaloza DO Primary Care Provider [phone] Reason for Visit * Reason Onset Date Comments Med Refill 12/02/2024 Encounter Details Date Type Department Care Team (Late st Contact Info) Description 12/02/2024 Refill [facility] Internal Medicine - Family Medicine [address] [place] [address] Kassi Rosado CMA Type 2 diabetes mellitus without complication, with long-term current use of insulin ([facility]) Social History Tobacco Use Types Packs/Day Years Used Date Smoking Tobacco: Former Cigarettes Q uit: 1976 Smokeless Tobacco: Never Comments:smoked for 1 year w hen was age 18 Alcohol Use Standard Drinks/Week Comments Yes 1 (1 standard drink = 0.6 oz pur e alcohol) socially [employer] Utilities Answer Date Recorded In the past 12 months has [employer], gas, oil, or water [employer] threatened to shut off services in your [...] How often do you attend chur or christianity services? More than 4 times per year 10/30/2024 Do you belong to any clubs o r organizations such as evangelical groups, unions, fraternal or athletic groups, or [...] Answer Date Recorded Total Score 0 11/05/2024 [facility] of Occupat ional [...] Recorded Do you need help finding a [facility] career center and/or a training program? [...] Internal Medicine - Family Medicine [address] [place] [address] Keaton Peñaloza DO [address] [place] [address] documented as of this encounter Goals Goal Patient Goal Type Associated Problems Recent Progress Patient-Stated? Author safe transition to home General Yes Nini De Luna LSW Note: Evaluation of progress towards goal: safe transition to home with self care. documented as of this encounter Visit Diagnoses Diagnosis Type 2 diabetes mellitus without complication, with long-term current use of insulin ([facility]) documented in this encounter Additional Health Concerns Assessment Noted Time PHQ-9 Depression Total Score: 0 11/06/19 1:07 PM EDT A Body Mass Index follow-up plan has been documented for the patient 04/23/2019 8:40 AM EST documented as of this encounter Care Teams Post Secondary Professional Relationship Specialty Start Date End Date Keaton Peñaloza DO [address] [facility] [place] [address] PCP - General Internal Medicine 06/24/24 documented as of this encounter
--- OUTSIDE RECORDS SUMMARY | 2024-12-09 13:12 | XMS_ITS | Encounter Summary ---
Author Organization [employer] Sys tem Address [facility] [id number] [address] [place] [address] Care Team Providers Care Methods Specialist Name Role Phone JhKeaton DO Primary Care Provider [phone] Encounter Details Date Type Department Care Team (Late st Contact Info) Description 11/24/2024 Telephone [facility] Internal Medicine - Family Medicine [address] [place] [address] Yolanda Roth CMA Social History Tobacco Use Types Packs/Day Years Used Date Smoking Tobacco: Former Cigarettes Q uit: 1976 Smokeless Tobacco: Never Comments:smoked for 1 year w hen was age 18 Alcohol Use Standard Drinks/Week Comments Yes 1 (1 standard drink = 0.6 oz pur e alcohol) socially [employer] Answer Date Recorded In the past [...] often do you attend chur ch or episcopal services? More than 4 times per year 10/30/2024 Do you belong to any clubs o r organizations such as protestant groups, unions, fraternal or athletic groups, or [...] Answer Date Recorded Total Score 0 11/05/2024 [facility] of Occupat ional Health - [...] Telephone Encounter - Yolanda Roth CMA - 11/24/2024 10:35 AM EDT Pt called about her DEXCOM. I seen the order ,but not sure what else needs to happen. * Telephone Encounter - Winter Snider CMA - 11/24/2024 10:35 AM EDT Looks like the order was sent on 11/05/24 documented in this encounter Plan of Treatment Upcoming Encounters Date Type Department Care Team (Late st Contact Info) Description 02/05/2025 1:30 PM EDT Office Visit [facility] Internal Medicine - Family Medicine [address] [place] [address] Keaton Peñaloza, DO [address] [place] [address] documented as of this encounter Goals Goal [...] documented as of this encounter Care Teams Methods Specialist Relationship Specialty Start Date End Date Keaton Peñaloza DO [address] [place] [address] PCP - General Internal Medicine 06/24/24 documented as of this encounter
--- OUTSIDE RECORDS SUMMARY | 2024-12-09 13:12 | XMS_ITS | Encounter Summary ---
Author Organization [facility] Address [facility] [place]-[id number] [address] [place] [address] Care Team Providers Care Certified Technician Name Role Phone Keaton Peñaloza DO Primary Care Provider [phone] Encounter Details Date Type Department Care Team (Late st Contact Info) Description 06/12/2023 Orders Only [facility] Internal Medicine - Family Medicine [address] [place] [phone] Keaton Peñaloza DO [address] [place] [address] Hypokalemia due to excessive gastrointestinal loss of [...] often do you attend chur ch or evangelical services? More than 4 times per year [...] Answer Date Recorded Total Score 0 06/12/2023 [facility] of Occupat ional Health - [...] Recorded Do you need help finding a [facility] career center and/or a training program? No [...] Internal Medicine - Family Medicine [address] [place] [address] Keaton Peñaloza DO [address] [place] [address] documented as of this encounter Visit Diagnoses [...] documented as of this encounter Care Teams Certified Technician Relationship Specialty Start Date End Date Keaton Peñaloza DO [address] [place] [address] PCP - General Internal Medicine 06/24/24 documented as of this encounter
--- OUTSIDE RECORDS SUMMARY | 2024-12-09 13:12 | XMS_ITS | Encounter Summary ---
Author Organization [employer] Sys tem Address [facility][id number] [address] [place] [address] Care Team Providers Care Rn Baby Name Role Phone Jh Keaton Joy BUNN Primary Care Provider [phone] Reason for Visit * Reason Onset Date Comments Care Navigation 05/10/2023 Encounter Details Date Type Department Care Team (Late st Contact Info) Description 05/10/2023 Telephone [facility] Internal Medicine - Family Medicine [address] [place] [address] Linda Ulloa, CIPRIANO Care Navigation Social History [...] often do you attend chur ch or sabianism services? More than 4 times per year 02/27/2023 Do you belong to any clubs o r organizations such as confucianism groups, unions, fraternal or athletic groups, or [...] Date Recorded Total Score 4 05/09/2023 [facility] of Occupat ional Health - Occupational [...] Recorded Do you need help finding a [facility] career center and/or a training program? No [...] - Family Medicine [address] [place] [address] Keaton Peñaloza DO [address] [place] [address] documented as of this encounter Visit Diagnoses [...] documented as of this encounter Care Teams Rn Baby Relationship Specialty Start Date End Date Keaton Peñaloza DO [address] [place] [address] PCP - General Internal Medicine 06/24/24 documented as of this encounter
--- OUTSIDE RECORDS SUMMARY | 2024-12-09 13:12 | XMS_ITS | Encounter Summary ---
Author Organization [employer] Sys tem Address [facility][id number] [address] [place] [address] Care Team Providers Care Crab Steamer Name Role Phone JhKeaton DO Primary Care Provider [phone] Encounter Details Date Type Department Care Team (Late st Contact Info) Description 06/13/2023 Telephone [facility] Internal Medicine - Family Medicine [address] [place] [address] Kassi Rosado CMA Social History [...] How often do you attend chur or sikhism services? More than 4 times per year 02/27/2023 Do you belong to any clubs o r organizations such as nondenominational groups, unions, fraternal or athletic groups, or [...] Answer Date Recorded Total Score 0 06/12/2023 [facility] of Occupat ional Health - Occupational Stress [...] Recorded Do you need help finding a [facility] career [facility] and/or a training [...] Medicine - Family Medicine [address] [place] [address] Keaton Peñaloza DO [address] [place] [address] documented as of this encounter Visit Diagnoses [...] documented as of this encounter Care Teams Crab Steamer Relationship Specialty Start Date End Date Keaton Peñaloza DO [address] [place] [address] PCP - General Internal Medicine 06/24/24 documented as of this encounter
--- OUTSIDE RECORDS SUMMARY | 2024-12-09 13:12 | XMS_ITS | Encounter Summary ---
Author Organization [employer] Sys tem Address [facility][id number] [address] [place] [address] Care Team Providers Care Ui Ux Engineer Name Role Phone JhKeaton DO Primary Care Provider [phone] Encounter Details Date Type Department Care Team (Late st Contact Info) Description 06/14/2023 Telephone [facility] Internal Medicine - Family Medicine [address] [place] [address] Kassi Rosado CMA Social History [...] Answer Date Recorded Total Score 0 06/12/2023 [facility] of Occupat ional Health - [...] Recorded Do you need help finding a [facility] career center and/or a training program? [...] Internal Medicine - Family Medicine [address] [place] [address] Keaton Peñaloza DO [address] [place] [address] documented as of this encounter Visit Diagnoses [...] documented as of this encounter Care Teams Ui Ux Engineer Relationship Specialty Start Date End Date Keaton Peñaloza DO [address] [place] [address] PCP - General Internal Medicine 06/24/24 documented as of this encounter
--- OUTSIDE RECORDS SUMMARY | 2024-12-09 13:12 | XMS_ITS | Encounter Summary ---
Author Organization [employer] Sys tem Address [facility]-[id number] [address] [place] [address] Care Team Providers Care Barrel Loader And Cleaner Name Role Phone MarissarocioKeaton DO Primary Care Provider [phone] Encounter Details Date Type Department Care Team (Late st Contact Info) Description 05/11/2023 Telephone [facility] Internal Medicine - Family Medicine [address] [place] [address] Yolanda Roth CMA Social History [...] How often do you attend chur or zoroastrian services? More than 4 times per year [...] Answer Date Recorded Total Score 4 05/09/2023 [facility] of Occupat ional Health - Occupational [...] Do you need help finding a [facility] career center and/or a training [...] Internal Medicine - Family Medicine [address] [place] [address] Keaton Peñaloza DO [address] [place] [address] documented as of this encounter Visit Diagnoses [...] documented as of this encounter Care Teams Barrel Loader And Cleaner Relationship Specialty Start Date End Date Keaton Peñaloza DO [address] [place] [address] PCP - General Internal Medicine 06/24/24 documented as of this encounter
--- OUTSIDE RECORDS SUMMARY | 2024-12-09 13:12 | XMS_ITS | Encounter Summary ---
Author Organization [facility] Address [facility]-[id number] [address] [place] [address] Care Team Providers Care Coal Chemist Name Role Phone Keaton Peñaloza DO Primary Care Provider [phone] Encounter Details Date Type Department Care Team (Late st Contact Info) Description 05/11/2023 Orders Only [facility] Internal Medicine - Family Medicine [address] [place] [address] Keaton Peñaloza DO [address] [place] [address] Rectal bleeding (Primary Dx) Social History Tobacco Use Types Packs/Day Years Used Date Smoking Tobacco: Former Cigarettes Smokeless Tobacco: Never Comments:smoked for 1 year w tba was age 18 Alcohol Use Standard Drinks/Week [...] often do you attend chur ch or jewish services? More than 4 times per year [...] Answer Date Recorded Total Score 4 05/09/2023 [facility] of Occupat ional Health - Occupational [...] Internal Medicine - Family Medicine [address] [place] [address] Keaton Peñaloza DO [address] [place] [address] documented as of this encounter Visit Diagnoses [...] documented as of this encounter Care Teams Coal Chemist Relationship Specialty Start Date End Date Keaton Peñaloza DO [address] [place] [address] PCP - General Internal Medicine 06/24/24 documented as of this encounter
--- OUTSIDE RECORDS SUMMARY | 2024-12-09 13:12 | XMS_ITS | Encounter Summary ---
Author Organization [employer] Sys tem Address [facility] [place][id number] [address] [place] [address] Care Team Providers Care Aurist Name Role Phone Jh Keaton Joy BUNN Primary Care Provider [phone] Reason for Visit * Reason Onset Date Comments Care Navigation 05/11/2023 Encounter Details Date Type Department Care Team (Late st Contact Info) Description 05/11/2023 Telephone [facility] Internal Medicine - Family Medicine [address] [place] [address] Linda Ulloa, CIPRIANO Care Navigation Social History [...] Answer Date Recorded Total Score 4 05/09/2023 [facility] of Occupat ional Health - [...] Recorded Do you need help finding a [facility] career [facility] and/or a training program? [...] Also waiting to verify day of colonoscopy. Tenter Frame Back Tender did review with patient that through her [employer] insurance, she is eligible for [address] trips a year to non-emergent doctor visits. This can also be used for food resources (goingto food bank, food pantry and grocery store for curb side pick up truck driver) They would also need at least 2 days advanced notice. Patient would need to to call [employer] to set up transportation appt. Pt would be able to take 1 croze cutter with her, as long as croze cutter was 18 yo or older. Also reviewed with patient TRIPS program servicing [facility], different zones in [facility]. Patient would need to call [phone] at least 24 hours in advance. Sometimes they are able to accommodate same day, depending on ride volume. They also do have rider assistance upon request. CN introduced herself, explained role of nursing care partner, TCM services available, and ACN will be [...] - Family Medicine [address] [place] [address] Keaton Peñaloza DO [address] [place] [address] documented as of this encounter Visit Diagnoses [...] documented as of this encounter Care Teams Aurist Relationship Specialty Start Date End Date Keaton Peñaloza DO [address] [facility] [place] [address] PCP - General Internal Medicine 06/24/24 documented as of this encounter
--- OUTSIDE RECORDS SUMMARY | 2024-12-09 13:12 | XMS_ITS | Encounter Summary ---
Author Organization [facility] Address [facility] [id number] [address] 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 More than 4 times per year 02/27/2023 Do you belong to any clubs o r organizations such as zoroastrian groups, unions, fraternal or athletic groups, or [...] Total Score 0 06/12/2023 [facility] of Occupat ional Health - Occupational [...] Internal Medicine - Family Medicine [address] [place] [address] Keaton Peñaloza DO [address] [place] [address] documented as of this encounter Visit Diagnoses Diagnosis Adenocarcinoma of rectum ([facility]-HCC)- Primary documented in this encounter Additional Health Concerns Infection Onset Date Last Indicated Resolved Time Respiratory Rule-Out 11/02/2024 11/02/2024 025 12:18 PM EDT Assessment Noted Time PHQ-9 Depression Total Score: 0 06/12/19 24 12:28 PM EST A Body Mass Index follow-up plan has been documented for the patient 04/23/2019 8:40 AM EST documented as of this encounter Care Teams Pasteurizer Helper Relationship Specialty Start Date End Date Keaton Peñaloza DO [address] [place] [address] PCP - General Internal Medicine 06/24/24 documented as of this encounter
--- OUTSIDE RECORDS SUMMARY | 2024-12-09 13:12 | XMS_ITS | Encounter Summary ---
Author Organization [employer] Sys tem Address [facility] [place][id number] [address] [place] [address] Care Team Providers Care Bellperson Name Role Phone JhKeaton DO Primary Care Provider [phone] Encounter Details Date Type Department Care Team (Late st Contact Info) Description 10/08/2024 Telephone [facility] Internal Medicine - Family Medicine [address] [place] [address] Yolanda Roth CMA Social History Tobacco Use Types Packs/Day Years Used Date Smoking Tobacco: Former Cigarettes Q uit: 1976 Smokeless Tobacco: Never Comments:smoked for 1 year w hen was age 18 Alcohol Use Standard Drinks/Week Comments Yes 1 (1 standard drink = 0.6 oz pur e alcohol) socially [employer] Answer Date Recorded In the past [...] any clubs o r organizations such as yazidism groups, unions, fraternal or athletic groups, or [...] Date Recorded Total Score 17 08/20/2023 [facility] of Occupat ional Health - [...] Internal Medicine - Family Medicine [address] [place] [address] Keaton Peñaloza DO [address] [place] [address] documented as of this encounter Goals Goal [...] documented as of this encounter Care Teams Bellperson Relationship Specialty Start Date End Date Keaton Peñaloza DO [address] [place] [facility] [place] [address] PCP - General Internal Medicine 06/24/24 documented as of this encounter
--- OUTSIDE RECORDS SUMMARY | 2024-12-09 13:12 | XMS_ITS | Encounter Summary ---
Author Organization [facility] Address [facility] [place][id number] [address] [place] [address] Care Team Providers Care Manager Car Name Role Phone Keaton Peñaloza DO Primary Care Provider [phone] Reason for Visit * Reason Comments Med Refill Encounter Details Date Type Department Care Team (Late st Contact Info) Description 12/09/2024 Refill [facility] Internal Medicine - Family Medicine [address] [place] [address] Keaton Peñaloza DO [address] [place] [address] Benign paroxysmal positional vertigo, unspecified laterality Social History Tobacco Use Types Packs/Day Years Used Date Smoking Tobacco: Former Cigarettes Q uit: 1976 Smokeless Tobacco: Never Comments:smoked for 1 year w hen was age 18 Alcohol Use Standard Drinks/Week Comments Yes 1 (1 standard drink = 0.6 oz pur e alcohol) socially [employer] Utilities Answer Date Recorded In the past 12 months has [employer], gas, oil, or water [employer] threatened to shut off services in your [...] week 10/30/2024 How often do you attend [facility] health system or anabaptism services? More than 4 times [...] Answer Date Recorded Total Score 0 11/05/2024 [facility] of Occupat ional Health [...] Recorded Do you need help finding a [facility] career center and/or a training program? [...] Internal Medicine - Family Medicine [address] [place] [address] Keaton Peñaloza DO [address] [place] [address] documented as of this encounter Goals Goal [...] documented as of this encounter Care Teams Manager Car Relationship Specialty Start Date End Date Keaton Peñaloza DO [address] [place] [address] PCP - General Internal Medicine 06/24/24 documented as of this encounter
--- OUTSIDE RECORDS SUMMARY | 2024-12-09 13:12 | XMS_ITS | Encounter Summary ---
Author Organization [facility] [employer] Sys tem Address [facility]-[id number] [address] [place] [address] Care Team Providers Care Construction Field Engineer Name Role Phone Keaton Peñaloza DO Primary Care Provider [phone] Reason for Visit * Reason Comments Med Refill Encounter Details Date Type Department Care Team (Late st Contact Info) Description 10/03/2024 Refill [facility] Internal Medicine - Family Medicine [address] [place] [address] Keaton Peñaloza DO [address] [place] [address] Benign paroxysmal positional vertigo, unspecified laterality Social History Tobacco Use Types Packs/Day Years Used Date Smoking Tobacco: Former Cigarettes Q uit: 1976 Smokeless Tobacco: Never Comments:smoked for 1 year w hen was age 18 Alcohol Use Standard Drinks/Week Comments Yes 1 (1 standard drink = 0.6 oz pur e alcohol) socially [employer] Answer Date Recorded In the past 12 months has [employer], gas, oil, or water [employer] threatened to shut off services in your [...] How often do you attend chur or quaker services? More than 4 times per year [...] Answer Date Recorded Total Score 17 08/20/2023 [facility] of Occupat ional Health [...] Recorded Do you need help finding a [facility] career center and/or a training program? [...] Internal Medicine - Family Medicine [address] [place] [address] Keaton Peñaloza DO [address] [place] [address] documented as of this encounter Goals Goal [...] documented as of this encounter Care Teams Construction Field Engineer Relationship Specialty Start Date End Date Keaton Peñaloza DO [address] [place] [address] PCP - General Internal Medicine 06/24/24 documented as of this encounter
--- OUTSIDE RECORDS SUMMARY | 2024-12-09 13:12 | XMS_ITS | Encounter Summary ---
Author Organization [employer] Sys tem Address [facility] [place][id number] [address] [place] [address] Care Team Providers Care Film Editor Name Role Phone Keaton Peñaloza Joy BUNN Primary Care Provider [phone] Encounter Details Date Type Department Care Team (Late st Contact Info) Description 06/20/2023 Orders Only [facility] General Surgery [address] [place] [address] Jackeline [place] CMA Social History Tobacco Use Types Packs/Day [...] How often do you attend chur or jehovah's witness services? More than 4 times per year 02/27/2023 Do you belong to any clubs o r organizations such as synagogue groups, unions, fraternal or athletic groups, or [...] Answer Date Recorded Total Score 0 06/12/2023 [facility] of Occupat ional [...] Recorded Do you need help finding a [facility] career center and/or a training [...] Internal Medicine - Family Medicine [address] [place] [address] Keaton Peñaloza DO [address] [place] [address] documented as of this encounter Visit Diagnoses [...] documented as of this encounter Care Teams Film Editor Relationship Specialty Start Date End Date Keaton Peñaloza DO [address] [place] [address] PCP - General Internal Medicine 06/24/24 documented as of this encounter
== END 2024-12-09 13:09 | disposition home or self-care (01) ==
LOC: WC 13:08
PROVIDERS: PCP Family Medicine; Visit Provider Physician Assistant
DX: I87.312 Chronic venous hypertension (idiopathic) with ulcer of left lower extremity (principal); L97.822 Non-pressure chronic ulcer of other part of left lower leg with fat layer exposed
CPT/HCPCS: G0463

== ENCOUNTER 2024-12-31 13:06 | Outpatient (OUT) | payer MEDICARE, MEDICAID, SELFPAY ==
--- OUTSIDE RECORDS SUMMARY | 2024-12-31 13:09 | XMS_ITS | Encounter Summary ---
Author Organization [facility] Address [address] [place] [address] Care Team Providers Care Chemist Inorganic Name Role Phone Yanick Cesar Unavailable Keaton Peñaloza Primary Care Provider [phone] Pauline Fatima Unavailable Unavailable Little Bowens RN Unavailable [phone] Cailin Montero PA-C Unavailable [phone] Richardson Beltran MD Unavailable [phone] Source Comments In the event this information is protected by the Federal Confidentiality of Alcohol and Drug AbusePatient Records regulations: The Federal rules restrict any use of the information to criminally investigate or prosecute any alcohol or drug abuse patient.[facility] Encounter Details Date Type Department Care Team (Late st Contact Info) Description 07/22/2024 Patient Msg Colorectal Surgery [address] [place] [id number] Provider, [facility] surgery August [address] Garza [...] risk 6 07/10/2023 Data from: https://www.neighborhoodatlas.medicine.[facility]/. Last address used for calculation [address] [...] PM EDT Appointment Radiology Pet CT [address] [place] [address] Ct Chest without contrast 03/19/2025 3:20 PM EDT Appointment [facility] [place] [address] [place] [address] MRI Rectum w/wo contrast 03/23/2025 2:15 PM EST Office Visit [facility] [address] [place] [address] [place] [address] 4 week follow up for MRI and Ct results 03/23/2025 2:40 PM EST Visit (SP) Office Hematology/Oncology [address] [place] [address] [place] [address] Richardson Beltran MD [address] [place] [address] 4 week follow up for MRI and Ct results documented as of this encounter Visit Diagnoses Not on filedocumented in this encounter Care Teams Chemist Inorganic Relationship Specialty Start Date End Date Keaton Peñaloza [address] [place] [address] PCP - General Internal Medicine 07/10/23 Yanick Cesar [address] [place] [address] Referring Clinical Technologist 09/05/18 Pauline Fatima LSW Call Center Director 07/10/23 [place], RN [address] [place] [address] [place] [address] Specialty Cytotechnologist/Cytology Supervisor Hematology/Oncology 09/19/23 Cailin Montero PA-C [address] [place] [address] [place] [address] Physician Pattern Attendant Hematology/Oncology 09/19/23 Richardson Beltran MD [address] [place] [address] [place] [address] Physician Hematology/Oncology 01/04/24 documented as of this encounter
--- OUTSIDE RECORDS SUMMARY | 2024-12-31 13:09 | XMS_ITS | Encounter Summary ---
Author Organization [facility] Address [address] [place] [address] Care Team Providers Care Lead Front End Developer Name Role Phone Yanick Cesar Unavailable Keaton Peñaloza Primary Care Provider [phone] BAILIFF Unavailable Unavailable Little Bowens RN Unavailable [phone] Arturo Mcdonald MD Unavailable [phone] Cailin Montero PA-C Unavailable [phone] Richardson Beltran MD Unavailable [phone] Source Comments In the event this information is protected by the Federal Confidentiality of Alcohol and Drug AbusePatient Records regulations: The Federal rules restrict any use of the information to criminally investigate or prosecute any alcohol or drug abuse patient.[facility] Encounter Details Date Type Department Care Team (Late st Contact Info) Description 10/19/2023 Patient Msg Dentistry [address] [place], [place] [id number] Provider, Ccf Call to Verify Dental Insurance [...] is lower risk 6 07/10/2023 Data from: https://www.neighborhoodatlas.medicine.[facility].edu/. Last address used for calculation Tomasa COMBS [...] PM EDT Appointment Radiology Pet CT [address] [place] [address] Ct Chest without contrast 03/19/2025 3:20 PM EDT Appointment [facility] [place] [address] [place], [place] [id number] MRI Rectum w/wo contrast 03/23/2025 2:15 PM EST Office Visit [facility] [address] [place] [address] [place] [address] 4 week follow up for MRI and Ct results 03/23/2025 2:40 PM EST Visit (SP) Office Hematology/Oncology [address] [place] [address] [place] [address] Richardson Beltran MD [address] [place] [address] 4 week follow up for MRI and Ct results documented as of this encounter Visit Diagnoses Not on filedocumented in this encounter Care Teams Lead Front End Developer Relationship Specialty Start Date End Date Keaton Peñaloza [address] [place] [address] PCP - General Internal Medicine 07/10/23 Yanick Cesar [address] [place] [address] Referring Application Packaging Consultant 09/05/18 Pauline Fatima, DISTRICT COURT BAILIFF User Interface Artist 07/10/23 Little Bowens, RN [address] [place] [address] Specialty Cheesemaking Laborer Hematology/Oncology 09/19/23 Arturo Mcdonald MD [address] [facility] [place] [address] Physician Hematology/Oncology 09/19/23 01/03/24 Cailin Montero PA-C [address] [place] [address] [place] [address] Physician Audio/Video Engineer Hematology/Oncology 09/19/23 Richardson Beltran MD [address] [place] [address] [place] [address] Physician Hematology/Oncology 01/04/24 documented as of this encounter
--- OUTSIDE RECORDS SUMMARY | 2024-12-31 13:09 | XMS_ITS | Encounter Summary ---
Author Organization [facility] Address [address] [place] [address] Care Team Providers Care Hse Specialist Name Role Phone Yanick Cesar Unavailable Keaton Peñaloza Primary Care Provider [phone] Pauline Fatima Unavailable Unavailable Little Bowens RN Unavailable Cailin Montero PA-C Unavailable [phone] Richardson Beltran MD Unavailable [phone] Source Comments In the event this information is protected by the Federal Confidentiality of Alcohol and Drug AbusePatient Records regulations: The Federal rules restrict any use of the information to criminally investigate or prosecute any alcohol or drug abuse patient.[facility] Encounter Details Date Type Department Care Team (Late st Contact Info) Description 11/12/2024 [place] [address] Provider, Ccf MRI Screening Questionnaire Completion Required [...] street hospital.edu/. Last address used for calculation Tomasa [...] PM EDT Appointment Radiology Pet CT [address] [place] [address] Ct Chest without contrast 03/19/2025 3:20 PM EDT Appointment [facility] [place] [address] [place] [address] MRI Rectum w/wo contrast 03/23/2025 2:15 PM EST Office Visit [facility] [address] [place] [address] [place] [address] 4 week follow up for MRI and Ct results 03/23/2025 2:40 PM EST Visit (SP) Office Hematology/Oncology [address] [place] [address] [place] [address] Richardson Beltran MD [address] [place] [address] 4 week follow up for MRI and Ct results documented as of this encounter Visit Diagnoses Not on filedocumented in this encounter Care Teams Hse Specialist Relationship Specialty Start Date End Date Keaton Peñaloza [address] [place] [address] PCP - General Internal Medicine 07/10/23 Yanick Cesar [address] [place] [address] Referring Sciences Dean 09/05/18 Pauline Fatima LSW Percussion Teacher 07/10/23 Little Bowens, RN [address] [place] [address] Specialty Toy Assembly Supervisor Hematology/Oncology 09/19/23 Cailin Montero PA-C [address] [place] [address] Physician Continuous Improvement Manager Hematology/Oncology 09/19/23 Richardson Beltran MD [address] [place] [address] Physician Hematology/Oncology 01/04/24 documented as of this encounter
--- OUTSIDE RECORDS SUMMARY | 2024-12-31 13:09 | XMS_ITS | Encounter Summary ---
Author Organization [facility] Address [facility] [place] [address] Care Team Providers Care Agricultural Equipment Test Engineer Name Role Phone Yanick Cesar Unavailable Keaton Peñaloza Primary Care Provider [phone] Pauline Fatima DANCE CHOREOGRAPHER Unavailable Unavailable Little Bowens RN Unavailable [phone] Arturo Mcdonald MD Unavailable [phone] Cailin Montero PA-C Unavailable [phone] Richardson Beltran MD Unavailable [phone] Source Comments In the event this information is protected by the Federal Confidentiality of Alcohol and Drug AbusePatient Records regulations: The Federal rules restrict any use of the information to criminally investigate or prosecute any alcohol or drug abuse patient.[facility] Encounter Details Date Type Department Care Team (Late st Contact Info) Description 12/09/2023 [place] [address] Provider, Ccf MRI Screening Questionnaire Completion Required [...] is lower risk 6 07/10/2023 Data from: https://www.neighborhoodatlas.medicine.[facility]/. Last address used for calculation Tomasa COMBS [...] PM EDT Appointment Radiology Pet CT [address] [facility] [place] [address] Ct Chest without contrast 03/19/2025 3:20 PM EDT Appointment [facility] [place] [address] [place] [address] MRI Rectum w/wo contrast 03/23/2025 2:15 PM EST Office Visit [facility] Laboratory [address] [place] [address] [place] [address] 4 week follow up for MRI and Ct results 03/23/2025 2:40 PM EST Visit (SP) Office Hematology/Oncology [address] [place] [address] [place] [address] Richardson Beltran MD [address] [place] [address] [place] [address] 4 week follow up for MRI and Ct results documented as of this encounter Visit Diagnoses Not on filedocumented in this encounter Care Teams Agricultural Equipment Test Engineer Relationship Specialty Start Date End Date Keaton Peñaloza [address] [place] [address] PCP - General Internal Medicine 07/10/23 Yanick Cesar [address] [place] [address] Referring Radiologist Chief Of Breast Imaging 09/05/18 Pauline Fatima LSW Edger Feeder 07/10/23 Little Bowens, RN [address] [facility] [place] [address] Specialty Trombone Slide Assembler Hematology/Oncology 09/19/23 Arturo Mcdonald MD [address] [place] [address] [place] [address] Physician Hematology/Oncology 09/19/23 01/03/24 Cailin Montero, PA-C [address] [place] [address] [place] [address] Physician Production Expert Hematology/Oncology 09/19/23 Richardson Beltran MD [address] [place] [address] [place] [address] Physician Hematology/Oncology 01/04/24 documented as of this encounter
--- OUTSIDE RECORDS SUMMARY | 2024-12-31 13:09 | XMS_ITS | Clinical Summary ---
Author Organization [facility] Address [address] [place] [address] Care Team Providers Care Automatic Corn Grinder Operator Name Role Phone Unavailable Primary Care Provider [...] insulin pen needle (Ultra John Insulin Pen [place]) 32G x 4 mm misc Inject under the skin if needed Use as instructed Active glucose blood test strip 1 each by Other route if needed Use as instructed Active Continuous Glucose Sensor (FreeStyle Vik 2 Sensor) misc Active Continuous Glucose Director Digital Advertising (FreeStyle Vik 2 [place]) device Active Apoaequorin 20 MG capsule Take [...]
--- OUTSIDE RECORDS SUMMARY | 2024-12-31 13:09 | XMS_ITS | Encounter Summary ---
Author Organization [facility] Address [address] [place] [address] Care Team Providers Care Manager Body Name Role Phone Yanick Cesar Unavailable Keaton Peñaloza Primary Care Provider [phone] Pauline Fatima Unavailable Unavailable Little Bowens RN Unavailable [phone] Cailin Montero PA-C Unavailable [phone] Richardson Beltran MD Unavailable [phone] Source Comments In the event this information is protected by the Federal Confidentiality of Alcohol and Drug AbusePatient Records regulations: The Federal rules restrict any use of the information to criminally investigate or prosecute any alcohol or drug abuse patient.[facility] Encounter Details Date Type Department Care Team (Late st Contact Info) Description 01/08/2024 [place] [address] Provider, Ccf MRI Screening Questionnaire Completion Required [...] is lower risk 6 07/10/2023 Data from: https://www.neighborhoodatlas.medicine.[facility].edu/. Last address used for calculation Tomasa ORTEZ [...] PM EDT Appointment Radiology Pet CT [address] [facility] [place] [place] [address] Ct Chest without contrast 03/19/2025 3:20 PM EDT Appointment [facility] [place] [address] [place] [address] MRI Rectum w/wo contrast 03/23/2025 2:15 PM EST Office Visit [facility] Laboratory [address] [place] [address] [place] [address] 4 week follow up for MRI and Ct results 03/23/2025 2:40 PM EST Visit (SP) Office Hematology/Oncology [address] [place] [address] [place] [address] Richardson Beltran MD [address] [facility] [place] [address] 4 week follow up for MRI and Ct results documented as of this encounter Visit Diagnoses Not on filedocumented in this encounter Care Teams Manager Body Relationship Specialty Start Date End Date Keaton Peñaloza [address] [place] [address] PCP - General Internal Medicine 07/10/23 Yanick Cesar [address] [place] [address] Referring Coding Educator 09/05/18 Pauline Fatima LSW Centerless Grinder Operator 07/10/23 Little Bowens, RN [address] [facility] [place] [address] Specialty Cover Seamer Hematology/Oncology 09/19/23 Cailin Montero PA-C [address] [facility] [place] [address] Physician Outlet Manager Hematology/Oncology 09/19/23 Richardson Beltran MD [address] [facility] [place] [address] Physician Hematology/Oncology 01/04/24 documented as of this encounter
--- OUTSIDE RECORDS SUMMARY | 2024-12-31 13:10 | XMS_ITS | Encounter Summary ---
Author Organization [employer] Address [facility]-[id number] [address] [place] [address] Care Team Providers Care Paralegal Instructor Name Role Phone MarissarocioKeaton DO Primary Care Provider Encounter Details Date Type Department Care Team (Late st Contact Info) Description 05/01/2024 Telephone [facility] Internal Medicine - Family Medicine [address] [place] [id number] Yolanda Roth CMA Social History Tobacco Use Types Packs/Day Years Used Date Smoking Tobacco: Former Cigarettes Q uit: 1976 Smokeless Tobacco: Never Comments:smoked for 1 year w hen was age 18 Alcohol Use Standard Drinks/Week Comments Yes 1 (1 standard drink = 0.6 oz pur e alcohol) socially [employer] Answer Date Recorded In the past [...] often do you attend chur ch or yazidi services? More than 4 times per year [...] Answer Date Recorded Total Score 17 08/20/2023 [facility] of Occupat ional Health - Occupational Stress [...] Internal Medicine - Family Medicine [address] [place] [address] Keaton Peñaloza DO [address] [place] [address] documented as of this encounter Goals Goal [...] documented as of this encounter Care Teams Paralegal Instructor Relationship Specialty Start Date End Date Keaton Peñaloza DO [address] [place] [address] PCP - General Internal Medicine 06/24/24 documented as of this encounter
--- OUTSIDE RECORDS SUMMARY | 2024-12-31 13:10 | XMS_ITS | Encounter Summary ---
Author Organization [facility] Address [id number] [address] [place] [address] Care Team Providers Care Diamond Cutter Name Role Phone JhKeaton DO Primary Care Provider [phone] Encounter Details Date Type Department Care Team (Late st Contact Info) Description 01/29/2023 Telephone [facility] Internal Medicine - Family Medicine [address] [place] [phone] Winter Snider CMA Social History Tobacco Use [...] she needs a new Prescription sent to [facility] for Basaglar since the units have changed. She would like a 90 day supply and it needs sent to the Pharmacy. documented in this encounter Plan of Treatment Upcoming Encounters Date Type Department Care Team (Late st Contact Info) Description 02/05/2025 1:30 PM EDT Office Visit [facility] Internal Medicine - Family Medicine [address] [place] [address] Keaton Peñaloza DO [address] [facility] [place] [address] documented as of this encounter Visit Diagnoses [...] documented as of this encounter Care Teams Diamond Cutter Relationship Specialty Start Date End Date Keaton Peñaloza DO [address] [place] [address] PCP - General Internal Medicine 06/24/24 documented as of this encounter
--- OUTSIDE RECORDS SUMMARY | 2024-12-31 13:10 | XMS_ITS | Encounter Summary ---
Author Organization [facility] Address [address] [place] [address] Care Team Providers Care Musical Therapist Name Role Phone Yanick Cesar Unavailable Keaton Peñaloza Primary Care Provider [phone] Pauline Fatima Unavailable Unavailable Little Bowens RN Unavailable [phone] Cailin Montero PA-C Unavailable [phone] Richardson Beltran MD Unavailable [phone] Source Comments In the event this information is protected by the Federal Confidentiality of Alcohol and Drug AbusePatient Records regulations: The Federal rules restrict any use of the information to criminally investigate or prosecute any alcohol or drug abuse patient.[facility] Reason for Visit * Reason Comments Results Encounter Details Date Type Department Care Team (Late st Contact Info) Description 01/14/2024 Telephone Hematology/Oncology [address] [facility] [place] [address] Cailin Montero PA-C [address] [place] [address] Results Social History Tobacco Use Types [...] is lower risk 6 07/10/2023 Data from: https://www.neighborhoodatlas.[facility]/. Last address used for calculation [address] [...] PM EDT Appointment Radiology Pet CT [address] [place] [address] Ct Chest without contrast 03/19/2025 3:20 PM EDT Appointment [facility] [place] [address] [place] [address] MRI Rectum w/wo contrast 03/23/2025 2:15 PM EST Office Visit [facility] Laboratory [address] [place] [address] 4 week follow up for MRI and Ct results 03/23/2025 2:40 PM EST Visit (SP) Office Hematology/Oncology [address] [place] [address] Richardson Beltran MD [address] [place] [address] 4 week follow up for MRI and Ct results documented as of this encounter Visit Diagnoses Not on filedocumented in this encounter Care Teams Musical Therapist Relationship Specialty Start Date End Date Keaton Peñaloza [address] [place] [address] PCP - General Internal Medicine 07/10/23 Yanick Cesar [address] [place] [address] Referring Pallet Sorter 09/05/18 Pauline Fatima LSW Demolition Worker 07/10/23 Little Bowens, RN [address] [facility] [place] [address] Specialty Wood Floor Refinisher Hematology/Oncology 09/19/23 Cailin Montero PANicholeC [address] [place] [place] [address] Physician Microstrategy Bi Developer Hematology/Oncology 09/19/23 Richardson Beltran MD [address] [place] [address] Physician Hematology/Oncology 01/04/24 documented as of this encounter
--- OUTSIDE RECORDS SUMMARY | 2024-12-31 13:10 | XMS_ITS | Patient Health Record ---
Author Organization [facility] [place] Address [address] [place] [address] Care Team Providers Care Workforce Investment Act Career Manager Name Role Phone Surya Michel BUNN Primary [...] Insured Coverage Start Date Coverage End Date [facility] PRIMARY MEDICARE [address] [place] [address] [id number] Dayanna Deshpande Self - patient is the insured 5
--- OUTSIDE RECORDS SUMMARY | 2024-12-31 13:10 | XMS_ITS | Encounter Summary ---
Author Organization [facility] Address [facility] [place] [address] Care Team Providers Care Aerospace Medicine Physician Name Role Phone Yanick Cesar Unavailable Keaton Peñaloza Primary Care Provider [phone] Pauline Fatima SALESFORCE BUSINESS ANALYST Unavailable Unavailable Little Bowens RN Unavailable [phone] Arturo Mcdonald MD Unavailable [phone] Cailin Montero PA-C Unavailable [phone] Richardson Beltran MD Unavailable [phone] Source Comments In the event this information is protected by the Federal Confidentiality of Alcohol and Drug AbusePatient Records regulations: The Federal rules restrict any use of the information to criminally investigate or prosecute any alcohol or drug abuse patient.[facility] Encounter Details Date Type Department Care Team (Late st Contact Info) Description 09/02/2023 [place] [address] Provider, Ccf MRI Screening Questionnaire Completion Required [...] is lower risk 6 07/10/2023 Data from: https://www.neighborhoodatlas.medicine.[facility].edu/. Last address used for calculation Tomasa [...] Radiology Pet CT [address] [place] [address] Ct Chest without contrast 03/19/2025 3:20 PM EDT Appointment [facility] [place] [address] [place], [place] [id number] MRI Rectum w/wo contrast 03/23/2025 2:15 PM EST Office Visit [facility] Laboratory [address] [place] [address] [place] [address] 4 week follow up for MRI and Ct results 03/23/2025 2:40 PM EST Visit (SP) Office Hematology/Oncology [address] [place] [address] [place] [address] Richardson Beltran MD [address] [place] [place] [address] 4 week follow up for MRI and Ct results documented as of this encounter Visit Diagnoses Not on filedocumented in this encounter Care Teams Aerospace Medicine Physician Relationship Specialty Start Date End Date Keaton Peñaloza [address] [place] [address] PCP - General Internal Medicine 07/10/23 Yanick Cesar [address] [place] [address] Referring Glaze Supervisor 09/05/18 Pauline Fatima LSW Senior Industrial Engineer 07/10/23 Little Bowens, RN [address] [place] [place] [address] Specialty Paper Pattern Folder Hematology/Oncology 09/19/23 Arturo Mcdonald MD [address] [facility] [place] [address] Physician Hematology/Oncology 09/19/23 01/03/24 Cailin Montero PA-C [address] [place] [address] [place] [address] Physician Morning Nanny Hematology/Oncology 09/19/23 Richardson Beltran MD [address] [place] [address] [place] [address] Physician Hematology/Oncology 01/04/24 documented as of this encounter
--- OUTSIDE RECORDS SUMMARY | 2024-12-31 13:10 | XMS_ITS | Encounter Summary ---
Author Organization [facility] [employer] Address [id number] [address] [place] [address] Care Team Providers Care Product Trainer Name Role Phone Keaton Peñaloza DO Primary Care Provider [phone] Encounter Details Date Type Department Care Team (Late st Contact Info) Description 05/09/2024 Orders Only [facility] Internal Medicine - Family Medicine [address] [place] [phone] Keaton Peñaloza DO [address] [place] [address] Social History Tobacco Use Types Packs/Day Years Used Date Smoking Tobacco: Former Cigarettes Q uit: 1976 Smokeless Tobacco: Never Comments:smoked for 1 year w hen was age 18 Alcohol Use Standard Drinks/Week Comments Yes 1 (1 standard drink = 0.6 oz pur e alcohol) socially [employer] Utilities Answer Date Recorded In the past 12 months has [employer], gas, oil, or water [employer] threatened to shut off services in your [...] How often do you attend chur or latter-day services? More than 4 times [...] Answer Date Recorded Total Score 17 08/20/2023 [facility] - Occupational Stress Questionnaire Answer [...] Recorded Do you need help finding a [facility] and/or a training program? [...] Family Medicine [address] [facility] [place] [address] Keaton Peñaloza DO [address] [place] [address] documented as of this encounter Goals Goal [...] documented as of this encounter Care Teams Product Trainer Relationship Specialty Start Date End Date Keaton Peñaloza DO [address] [facility] [place] [address] PCP - General Internal Medicine 06/24/24 documented as of this encounter
--- OUTSIDE RECORDS SUMMARY | 2024-12-31 13:10 | XMS_ITS | Encounter Summary ---
Author Organization [facility] Address [id number] [address] [place] [address] Care Team Providers Care Commercial Fisherman Name Role Phone Keaton Peñaloza DO Primary Care Provider [phone] Encounter Details Date Type Department Care Team (Late st Contact Info) Description 10/02/2023 Orders Only [facility] Internal Medicine - Family Medicine [address] [place] [phone] Keaton Peñaloza DO [address] [place] [address] Social History Tobacco Use Types Packs/Day Years Used Date Smoking Tobacco: Former Cigarettes Q uit: 1976 Smokeless Tobacco: Never Comments:smoked for 1 year w hen was age 18 Alcohol Use Standard Drinks/Week Comments Yes 1 (1 standard drink = 0.6 oz pur e alcohol) socially [place] Utilities Answer Date Recorded In the past 12 months has [employer], gas, oil, or water [email or web address] threatened to shut off services in your [...] How often do you attend chur or religion services? More than 4 times per year [...] Answer Date Recorded Total Score 17 08/20/2023 [facility] - Occupational Stress Questionnaire Answer Date [...] Recorded Do you need help finding a [facility] career center and/or a training program? [...] Internal Medicine - Family Medicine [address] [place] [address] Keaton Peñaloza DO [address] [place] [address] documented as of this encounter Goals Goal [...] documented as of this encounter Care Teams Commercial Fisherman Relationship Specialty Start Date End Date Keaton Peñaloza DO [address] [place] [address] PCP - General Internal Medicine 06/24/24 documented as of this encounter
--- OUTSIDE RECORDS SUMMARY | 2024-12-31 13:10 | XMS_ITS | Encounter Summary ---
Author Organization [employer] [employer] [facility] Address [id number] [address] [place] [address] Care Team Providers Care Property Master Name Role Phone Keaton Peñaloza DO Primary Care Provider [phone] Reason for Visit * Reason Comments Med Refill Encounter Details Date Type Department Care Team (Late st Contact Info) Description 09/24/2023 Refill [facility] Internal Medicine - Family Medicine [address] [place] [phone] Keaton Peñaloza DO [address] [place] [address] Mixed hyperlipidemia Social History Tobacco Use Types Packs/Day Years Used Date Smoking Tobacco: Former Cigarettes Q uit: 1976 Smokeless Tobacco: Never Comments:smoked for 1 year w hen was age 18 Alcohol Use Standard Drinks/Week Comments Yes 1 (1 standard drink = 0.6 oz pur e alcohol) socially [facility] Utilities Answer Date Recorded In the past 12 months has [employer], [employer], oil, or water [employer] threatened to shut off services in your [...] How often do you attend chur or voodoo services? More than 4 times [...] Answer Date Recorded Total Score 17 08/20/2023 [facility] [...] Recorded Do you need help finding a [facility] career center and/or a training program? [...] Internal Medicine - Family Medicine [address] [place] [address] Keaton Peñaloza DO [address] [place] [address] documented as of this encounter Goals Goal [...] documented as of this encounter Care Teams Property Master Relationship Specialty Start Date End Date Keaton Peñaloza DO [address] [place] [address] PCP - General Internal Medicine 06/24/24 documented as of this encounter
--- OUTSIDE RECORDS SUMMARY | 2024-12-31 13:10 | XMS_ITS | Encounter Summary ---
Author Organization [facility] tem Address [id number] [address] [place] [address] Care Team Providers Care Topstitcher Zigzag Name Role Phone Keaton Peñaloza DO Primary Care Provider [phone] Reason for Visit * Reason Comments Med Refill Encounter Details Date Type Department Care Team ([facility] Contact Info) Description 09/03/2022 Refill [facility] General Surgery [address] [place] [phone] Christopher Amin DO [address] [place], [place] [phone] Social History Tobacco Use Types Packs/Day Years [...] Upcoming Encounters Date Type Department Care Team ([facility] Contact Info) Description 02/05/2025 1:30 PM EDT Office Visit [facility] Internal Medicine - Family Medicine [address] [place] [phone] Keaton Peñaloza DO [address] [place] [address] documented as of this encounter Visit Diagnoses [...] documented as of this encounter Care Teams Topstitcher Zigzag Relationship Specialty Start Date End Date Keaton Peñaloza DO [address] [place] [address] PCP - General Internal Medicine 06/24/24 documented as of this encounter
--- OUTSIDE RECORDS SUMMARY | 2024-12-31 13:10 | XMS_ITS | Clinical Summary ---
Author Organization [facility] Address [address] [place] [address] Care Team Providers Care Clinical Information Systems Director Name Role Phone Unavailable Primary Care Provider [...]
--- OUTSIDE RECORDS SUMMARY | 2024-12-31 13:10 | XMS_ITS | Encounter Summary ---
Author Organization [employer] Address [facility] [id number] [address] [place] [address] Care Team Providers Care Commercial Carpet Installer Name Role Phone MarissarocioKeaton DO Primary Care Provider Encounter Details Date Type Department Care Team (Late st Contact Info) Description 03/07/2023 Telephone [facility] Internal Medicine - Family Medicine [address] [place] [address] Kassi Rosado CMA Social History [...] How often do you attend chur or rastafari services? More than 4 times per year 02/27/2023 Do you belong to any clubs o r organizations such as adventism groups, unions, fraternal or athletic groups, or [...] Answer Date Recorded Total Score 2 02/27/2023 [facility] Occupat ional Health - [...] Recorded Do you need help finding a [facility] career center and/or a training program? [...] Internal Medicine - Family Medicine [address] [place] [address] Keaton Peñaloza DO [address] [place] [address] documented as of this encounter Visit Diagnoses [...] as of this encounter Care Teams Commercial Carpet Installer Relationship Specialty Start Date End Date Keaton Peñaloza DO [address] [place] [address] PCP - General Internal Medicine 06/24/24 documented as of this encounter
--- OUTSIDE RECORDS SUMMARY | 2024-12-31 13:10 | XMS_ITS | Clinical Summary ---
Author Organization [facility] Address [address] [place] [address] Care Team Providers Care Biomedical Engineering Supervisor Name Role Phone Yanick Cesar Unavailable Keaton Peñaloza Primary Care Provider [phone] Pauline Fatima Unavailable Unavailable Little Bowens RN Unavailable [phone] Cailin Montero PA-C Unavailable [phone] Richardson Beltran MD Unavailable [phone] Allergies Active Allergy Reactions Criticality Noted Date [...] 1:40 PM EDT Visit (SP) Office Hematology/Oncology [address] [place] [address] [place] [address] Richardson Beltran MD Malignant neoplasm of rectum (HCC) (Primary Dx); Type 2 diabetes mellitus with hyperglycemia, with long-term current use of insulin (HCC); 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 Last address used for calculation [address] [...] PM EDT Appointment Radiology Pet CT [address] [place] [address] Ct Chest without contrast 03/19/2025 3:20 PM EDT Appointment [facility] [place] [address] [place], [place] [id number] MRI Rectum w/wo contrast 03/23/2025 2:15 PM EST Office Visit [facility] Laboratory [address] [place] [address] 4 week follow up for MRI and Ct results 03/23/2025 2:40 PM EST Visit (SP) Office Hematology/Oncology [address] [facility] [place] [address] Richardson Beltran MD [address] [place] [address] 4 week follow up for MRI and Ct results Health Maintenance Due Date Last Done Comments Diabetic Foot Exam 09/09/1967 Dilated Retinal Exam [...] or Tdap) 08/21/2029 08/22/2019 Colonoscopy 06/26/2033 06/26/2023, 02/0 10/2023, 05/25/2023, Additional history exists Colorectal Cancer [...] - 1,245 pg/mL 11/18/2024 1:49 AM EDT [facility] Blood BLOOD SPECIMEN / Unknown Venipuncture / Unknown 11/17/2024 12:50 PM EDT 11/17/2024 12:51 PM EDT us Richardson Beltran MD LABORATORY Final Result [facility] [address] [place] [address], * IRON AND TIBC (11/17/2024 12:50 PM EDT) Iron 65 41 - 186 ug/dL 11/18/2024 1:31 AM EDT [facility] TIBC 341 232 - 386 ug/dL 11/18/2024 1:31 AM EDT [facility] Transferrin Saturation 19.1 15.0 - 57.0 % 11/18/2024 1:31 AM EDT [facility] Blood BLOOD SPECIMEN / Unknown Venipuncture / Unknown 11/17/2024 12:50 PM EDT 11/17/2024 12:51 PM EDT us Richardson Beltran MD LABORATORY Final Result [facility] [address] [place] [id number], [place] * FOLATE, SERUM (11/17/2024 12:50 PM EDT) Pathologist [facility] Folate 11.9 >4.7 ng/mL 11/18/2024 1:49 AM EDT [facility] Blood BLOOD SPECIMEN / Unknown Venipuncture / Unknown 11/17/2024 12:50 PM EDT 11/17/2024 12:51 PM EDT us Richardson Betlran MD LABORATORY Final Result Performing Organization Address City/[facility]/ZIP Co de Phone Number [facility] [address] [address], [place] * FERRITIN (11/17/2024 12:50 PM EDT) Pathologist [facility] Ferritin 126.0 14.7 - 205.1 ng/mL 11/18/2024 6:35 AM EDT [facility] Blood BLOOD SPECIMEN / Unknown Venipuncture / Unknown 11/17/2024 12:50 PM EDT 11/17/2024 12:51 PM EDT us Richardson Beltran MD LABORATORY Final Result Performing Organization Address City/[facility]/ZIP Co de Phone Number [facility] [address] [place] [id number], [place] * (ABNORMAL) COMPREHENSIVE METABOLIC PANEL (11/17/2024 12:50 PM EDT) Protein, Total 6.9 6.3 - 8.0 g/dL 11/17/2024 1:15 PM EDT [facility] Albumin 3.9 3.9 - 4.9 g/dL 11/17/2024 1:15 PM EDT [facility] Calcium, Total 10.2 8.5 - 10.2 mg/dL 11/17/2024 1:15 PM EDT [facility] Bilirubin, Total 0.9 0.2 - 1.3 mg/dL 11/17/2024 1:15 PM EDT [facility] Alkaline Phosphatase 101 34 - 123 U/L 11/17/2024 1:15 PM EDT [facility] AST 10(L) 13 - 35 U/L 11/17/2024 1:15 PM EDT [facility] ALT 11 7 - 38 U/L 11/17/2024 1:15 PM EDT [facility] Glucose 498(H) 74 - 99 mg/dL 11/17/2024 1:15 PM T [facility] Comment: The [place] Diabetes Association (ADA) provides guidance for cutoff [...] Standards of Medical Care in Diabetes 2016, [place] [employer] Association. Diabetes Care. 2016.39(Suppl 1). BUN 15 7 - 21 mg/dL 11/17/2024 1:15 PM EDT [facility] Creatinine 0.95 0.58 - 0.96 mg/dL 11/17/2024 1:15 PM EDT [facility] Sodium 135(L) 136 - 144 mmol/L 11/17/2024 1:15 PM EDT [facility] Potassium 4.5 3.7 - 5.1 mmol/L 11/17/2024 1:15 PM EDT [facility] Chloride 99 98 - 107 mmol/L 11/17/2024 1:15 PM EDT [facility] CO2 24 22 - 30 mmol/L 11/17/2024 1:15 PM EDT [facility] Anion Gap 12 8 - 15 mmol/L 11/17/2024 1:15 PM EDT [facility] Estimated Glomerular Filtration Rate 66 >=60 mL/min/1. 73m 11/17/2024 1:15 PM EDT [facility] Comment:Estimated Glomerular Filtration Rate (eGFR) [...] MD LABORATORY Final Result Performing Organization Address City/[facility] Co de Phone Number [facility] [address] [place] [address] * (ABNORMAL) CARCINOEMBRYONIC ANTIGEN (11/17/2024 12:50 PM EDT) CEA 4.8(H) <=2.9 ng/mL 11/18/2024 10:35 AM EDT [facility] Comment: Carcinoembryonic antigen test is used as an aid in monitoring response to treatment or recurrence in patients with established colorectal, breast, lung, prostatic, pancreatic, and ovarian carcinomas. Clinical correlation is required. The Carcinoembryonic antigen test was performed using the Mese[employer] Unicel DXI paramagnetic particle chemiluminescent immunoassay method. Results obtained with different assay methods or kits cannot be used interchangeably. Blood BLOOD SPECIMEN / Unknown Venipuncture / Unknown 11/17/2024 12:50 PM EDT 11/17/2024 12:51 PM EDT us Richardson Beltran MD LABORATORY Final Result [facility] [address] [facility] [address] [place] [address], [place] * (ABNORMAL) COMPLETE BLOOD COUNT AND DIFFERENTIAL (11/17/2024 12:50 PM EDT) WBC 6.48 3.70 - 11.00 k/uL 11/17/2024 12:56 PM EDT [facility] RBC 4.53 3.90 - 5.20 m/uL 11/17/2024 12:56 PM EDT [facility] Hemoglobin 12.7 11.5 - 15.5 g/dL 11/17/2024 12:56 PM EDT [facility] Hematocrit 36.6 36.0 - 46.0 % 11/17/2024 12:56 PM EDT [facility] MCV 80.8 80.0 - 100.0 fL 11/17/2024 12:56 PM EDT [facility] MCH 28.0 26.0 - 34.0 pg 11/17/2024 12:56 PM EDT [facility] MCHC 34.7 30.5 - 36.0 g/dL 11/17/2024 12:56 PM EDT [facility] RDW-CV 12.7 11.5 - 15.0 % 11/17/2024 12:56 PM EDT [facility] Platelet Count 294 150 - 400 k/uL 11/17/2024 12:56 PM EDT [facility] MPV 9.1 9.0 - 12.7 fL 11/17/2024 12:56 PM EDT [facility] Neutrophils % 80.0 % 11/17/2024 12:56 PM EDT [facility] Abs Neut 5.19 1.45 - 7.50 k/uL 11/17/2024 12:56 PM EDT [facility] Lymphocytes % 7.6 % 11/17/2024 12:56 PM EDT [facility] Abs Lymph 0.49(L) 1.00 - 4.00 k/uL 11/17/2024 12:56 PM EDT [facility] Monocytes % 7.4 % 11/17/2024 12:56 PM EDT [facility] Abs Calloway 0.48 <0.87 k/uL 11/17/2024 12:56 PM EDT [facility] Eosinophils % 3.9 % 11/17/2024 12:56 PM EDT [facility] Abs Eosin 0.25 <0.46 k/uL 11/17/2024 12:56 PM EDT [facility] Basophils % 0.5 % 11/17/2024 12:56 PM EDT [facility] Abs Baso 0.03 <0.11 k/uL 11/17/2024 12:56 PM EDT [facility] Immature Granulocytes % 0.6 % 11/17/2024 12:56 PM EDT [facility] Abs Immature Gran 0.04 <0.10 k/uL 11/17/2024 12:56 PM EDT [facility] NRBC 0.0 /100 WBC 11/17/2024 12:56 PM EDT [facility] Absolute nRBC <0.01 <0.01 k/uL 11/17/2024 12:56 PM EDT [facility] Diff Type Auto 11/17/2024 12:56 PM EDT [facility] Blood BLOOD SPECIMEN / Unknown Venipuncture / Unknown 11/17/2024 12:50 PM EDT 11/17/2024 12:51 PM EDT us Richardson Beltran MD LABORATORY Final Result [facility] [address] [place] [address] * MRI RECTUM WO/W IVCON (11/14/2024 4:25 [...] nodes: No. Suspicious Extramesorectal lymph nodes: No. Dyed Raw Stock Blower Feeder: [email or web address] Transcribe Date/Time: Nov 17 2024 8:21A Dictated by : PAWEL ODONNELL MD This examination was interpreted and the report reviewed and electronically signed by: PAWEL ODONNELL MD on Nov 17 2024 8:38AM EST Narrative 11/17/2024 8:41 AM EDT * * *Final Report* * * DATE OF EXAM: Nov 14 2024 4:25PM [facility] 0754 - MRI RECTUM WO/W IVCON / [...] unilocular right ovarian cyst. Procedure Note Provider, [facility] [place] - 11/17/2024 * * *Final Report* * * DATE OF EXAM: Nov 14 2024 4:25PM [facility] 0754 - MRI RECTUM WO/W IVCON / [...] nodes: No. Suspicious Extramesorectal lymph nodes: No. Dyed Raw Stock Blower Feeder: [email or web address] Transcribe Date/Time: Nov 17 2024 8:21A Dictated by : PAWEL ODONNELL MD This examination was interpreted and the report reviewed and electronically signed by: PAWEL ODONNELL MD on Nov 17 2024 8:38AM EST us Richardson Beltran MD MRI-PAMA Final Result * SIGMOIDOSCOPY (07/29/2024 1:16 PM EDT) Anatomical Region Laterality Modality Other 07/29/2024 12:3 9 PM EDT Narrative 07/29/2024 1:21 PM EDT [facility] Gastrointestinal Endoscopy Patient Name: Dayanna Haddad Procedure Date: 07/29/2024 12:39 PM Date of : 1955 Admit Type: Outpatient Age: 68 Room: [place] [address] Gender: Female Note Status: Finalized Attending MD: Evans Garza MD, [id number] Procedure: Flexible Sigmoidoscopy Indications: High risk colon cancer surveillance: Personal history of rectal cancer Providers: Evans Garza MD, Corine Watson, CIPRIANO, Jaylin Oneil RN (Assisting Nurse), claudia Donaldson [...] passed under direct vision. The PCF [id number] was introduced through the anus and advanced [...] post-treatment MRI Procedure Code(s): --- Professional --- 49072, Sigmoidoscopy, flexible; diagnostic, including collection of specimen(s) by brushing or washing, when performed (separate procedure) Diagnosis Code(s): --- Professional --- Z85.048, Personal history of other malignant neoplasm of rectum, rectosigmoid junction, and anus CPT copyright 2020 [employer]. All rights reserved. The codes documented in this report are preliminary and upon pipe covering molder review may be revised to meet current compliance requirements. Attending Participation: I personally performed the entire procedure. Scope In: 1:05:35 PM Scope Out: 1:13:57 PM MD Evans Vallejo MD 07/29/2024 1:19:20 PM This report has been signed electronically by Evans Garza MD Number of Addenda: 0 Note Initiated On: 07/29/2024 12:39 PM Estimated Blood Loss: Estimated blood loss: none. Evans Garza MD DIGESTIVE DISEASE Final Resul t from Last 3 Months or Most Recently Relevant to Health Maintenance Insurance [employer]PLE[employer] H[employer] POS SNP Care Teams Biomedical Engineering Supervisor Relationship Specialty Start Date End Date Jh Keaton Conteh [address] [place] [address] PCP - General Internal Medicine 07/10/23 Yanick Cesar [address] [place] [address] Referring Business Agent 09/05/18 Pauline Fatima LSW Mathematical Physicist 07/10/23 Little Bowens, RN [address] [place] [address] [place] [address] Specialty Php Consultant Hematology/Oncology 09/19/23 Cailin Montero, PA-C [address] [place] [address] [place] [address] Physician Chief Librarian Circulation Department Hematology/Oncology 09/19/23 Richardson Beltran MD [address] [place] [address] [place] [address] Physician Hematology/Oncology 01/04/24
--- OUTSIDE RECORDS SUMMARY | 2024-12-31 13:10 | XMS_ITS | Encounter Summary ---
Author Organization [employer] [facility] tem Address [id number] [address] [place] [address] Care Team Providers Care Garage Door Technician Name Role Phone Keaton Peñaloza DO Primary Care Provider [phone] Encounter Details Date Type Department Care Team ([facility] Contact Info) Description 01/18/2023 Orders Only [facility] Internal Medicine - Family Medicine [address] [place] [address] Keaton Peñaloza DO [address] [place] [address] Social History Tobacco Use Types Packs/Day Years [...] Upcoming Encounters Date Type Department Care Team ([facility] Contact Info) Description 02/05/2025 1:30 PM EDT [facility] [address] [place] [address] Keaton Peñaloza DO [address] [place] [address] documented as of this encounter Visit Diagnoses [...] documented as of this encounter Care Teams Garage Door Technician Relationship Specialty Start Date End Date Keaton Peñaloza DO [address] [place] [address] PCP - General Internal Medicine 06/24/24 documented as of this encounter
--- OUTSIDE RECORDS SUMMARY | 2024-12-31 13:10 | XMS_ITS | Encounter Summary ---
Author Organization [facility] Address [address] [place] [address] Care Team Providers Care Water Attendant Name Role Phone Yanick Cesar Unavailable Keaton Peñaloza Primary Care Provider [phone] Pauline Fatima Unavailable Unavailable Little Bowens RN Unavailable [phone] Cailin Montero PA-C Unavailable [phone] Richardson Beltran MD Unavailable [phone] Source Comments In the event this information is protected by the Federal Confidentiality of Alcohol and Drug AbusePatient Records regulations: The Federal rules restrict any use of the information to criminally investigate or prosecute any alcohol or drug abuse patient.[facility] Reason for Visit * Reason Comments Appointment Appointment reminder call--- Encounter Details Date Type Department Care Team (Late st Contact Info) Description 06/30/2024 Telephone Radiology [address] [place] [address] Loyda Argueta Appointment (Appointment reminder [...] risk 6 07/10/2023 Data from: https://www.neighborhoodatlas.medicine.[facility]/. Last address used for calculation [...] Pet CT [address] [place] [address] Ct Chest without contrast 03/19/2025 3:20 PM EDT Appointment [facility] [place] [address] [place] [address] MRI Rectum w/wo contrast 03/23/2025 2:15 PM EST Office [facility] [address] [place] [address] [place] [address] 4 week follow up for MRI and Ct results 03/23/2025 2:40 PM EST Visit (SP) Office Hematology/Oncology [address] [place] [address] [place] [address] Richardson Beltran MD [address] [place] [address] 4 week follow up for MRI and Ct results documented as of this encounter Visit Diagnoses Not on filedocumented in this encounter Care Teams Water Attendant Relationship Specialty Start Date End Date Keaton Peñaloza [address] [place] [address] PCP - General Internal Medicine 07/10/23 Yanick Cesar [address] [place] [address] Referring Director Of Clinical Education 09/05/18 Pauline Fatiam LSW Director Stars 07/10/23 Little Bowens, RN [address] [place] [address] [place] [address] Specialty Nondestructive Tester Hematology/Oncology 09/19/23 Cailin Montero, PA-C [address] [place] [address] [place] [address] Physician Typing Bookkeeper Hematology/Oncology 09/19/23 Richardson Beltran MD [address] [place] [address] [place] [address] Physician Hematology/Oncology 01/04/24 documented as of this encounter
--- OUTSIDE RECORDS SUMMARY | 2024-12-31 13:10 | XMS_ITS | Encounter Summary ---
Author Organization [facility] Address [facility] [place] [address] Care Team Providers Care Chip Bin Conveyor Tender Name Role Phone Yanick Cesar Unavailable Keaton Peñaloza Primary Care Provider [phone] Pauline Fatima Unavailable Unavailable Little Bowens RN Unavailable [phone] Cailin Montero PA-C Unavailable [phone] Richardson Beltran MD Unavailable [phone] Source Comments In the event this information is protected by the Federal Confidentiality of Alcohol and Drug AbusePatient Records regulations: The Federal rules restrict any use of the information to criminally investigate or prosecute any alcohol or drug abuse patient.[facility] Encounter Details Date Type Department Care Team (Late st Contact Info) Description 06/30/2024 Telephone Radiology [address] [place], [place] [id number] Loyda Argueta Social History Tobacco Use Types [...] is lower risk 6 07/10/2023 Data from: https://www.neighborhoodatlas.medicine.[facility]/. Last address used for calculation Tomasa [...] PM EDT Appointment Radiology Pet CT [address] [place] [address] Ct Chest without contrast 03/19/2025 3:20 PM EDT Appointment [facility] [place] [address] [place], [place] [id number] MRI Rectum w/wo contrast 03/23/2025 2:15 PM EST Office Visit [facility] [address] [place] [address] [place] [address] 4 week follow up for MRI and Ct results 03/23/2025 2:40 PM EST Visit (SP) Office Hematology/Oncology [address] [place] [address] [place] [address] Richardson Beltran MD [address] [place] [address] [place] [address] 4 week follow up for MRI and Ct results documented as of this encounter Visit Diagnoses Not on filedocumented in this encounter Care Teams Chip Bin Conveyor Tender Relationship Specialty Start Date End Date Keaton Peñaloza [address] [place] [address] PCP - General Internal Medicine 07/10/23 Yanick Cesar [address] [place] [address] Referring [employer] 09/05/18 Pauline Fatima LSW Database Administration Project Manager 07/10/23 Little Bowens, RN [address] [place] [address] [place] [address] Specialty Global Sales Manager Hematology/Oncology 09/19/23 Cailin Montero PA-C [address] [place] [address] [place] [address] Physician Supervisor Net Making Hematology/Oncology 09/19/23 Richardson Beltran MD [address] [place] [address] [place] [address] Physician Hematology/Oncology 01/04/24 documented as of this encounter
--- OUTSIDE RECORDS SUMMARY | 2024-12-31 13:10 | XMS_ITS | Encounter Summary ---
Author Organization [facility] tem Address [id number] [address] [place] [address] Care Team Providers Care Drop Forge Operator Name Role Phone JhKeaton DO Primary Care Provider [phone] Encounter Details Date Type Department Care Team (Late st Contact Info) Description 12/22/2022 Telephone [facility] [address] [place] [id number] Angelo Lion PA [address] [facility], [address] [place] [address] Social History Tobacco Use Types Packs/Day Years [...] - Family Medicine [address] [place] [address] Keaton Peñaloza DO [address] [place] [address] documented as of this encounter Visit Diagnoses [...] documented as of this encounter Care Teams Drop Forge Operator Relationship Specialty Start Date End Date Keaton Peñaloza DO [address] [place] [address] PCP - General Internal Medicine 06/24/24 documented as of this encounter
--- OUTSIDE RECORDS SUMMARY | 2024-12-31 13:10 | XMS_ITS | Encounter Summary ---
[facility] Address [id number] [address] [place] [address] Care Team Providers Care Ct Manager Name Role Phone Keaton Peñaloza Joy BUNN Primary Care Provider [phone] Encounter Details Date Type Department Care Team (Late st Contact Info) Description 02/14/2024 Orders Only [facility] Internal Medicine - Family Medicine [address] [place] [id number] Ref Prov, [place] [address] Social History Tobacco Use Types Packs/Day Years [...] any clubs o r organizations such as denominational groups, unions, fraternal or athletic groups, or [...] Recorded Do you need help finding a [facility] and/or a training [...] Internal Medicine - Family Medicine [address] [place] [address] Keaton Peñaloza DO [address] [place] [address] documented as of this encounter Goals Goal [...] EDT) us Not In System Ref Prov SD IMAGING Final Res ult Performing Organization Address [facility] Co de Phone Number MANUALLY TRANSCRIBED RESULTS * Multiple labs (02/13/2024 1:17 PM EDT) us Not In System Ref Prov SD IMAGING Final Res ult Performing Organization Address [facility] Co de Phone Number MANUALLY TRANSCRIBED RESULTS [...] documented as of this encounter Care Teams Ct Manager Relationship Specialty Start Date End Date Keaton Peñaloza DO [address] [place] [id number] PCP - General Internal Medicine 06/24/24 documented as of this encounter
--- OUTSIDE RECORDS SUMMARY | 2024-12-31 13:10 | XMS_ITS | Encounter Summary ---
Author Organization [facility] Address [address] [place] [address] Care Team Providers Care Wire Roller Name Role Phone Yanick Cesar Unavailable Keaton Peñaloza Primary Care Provider [phone] Pauline Fatima Unavailable Unavailable Little Bowens RN Unavailable [phone] Cailin Montero PA-C Unavailable [phone] Richardson Beltran MD Unavailable [phone] Source Comments In the event this information is protected by the Federal Confidentiality of Alcohol and Drug AbusePatient Records regulations: The Federal rules restrict any use of the information to criminally investigate or prosecute any alcohol or drug abuse patient.[facility] Encounter Details Date Type Department Care Team (Late st Contact Info) Description 06/29/2024 [place] [address] Provider, [facility] MRI Screening Questionnaire Completion Required [...] is lower risk 6 07/10/2023 Data from: https://www.neighborhoodatlas.medicine.[facility].edu/. Last address used for calculation Tomasa [...] PM EDT Appointment Radiology Pet CT [address] [place] [address] Ct Chest without contrast 03/19/2025 3:20 PM EDT Appointment [facility] [place] [address] [place] [address] MRI Rectum w/wo contrast 03/23/2025 2:15 PM EST Office Visit [facility] [address] [place] [address] [place] [address] 4 week follow up for MRI and Ct results 03/23/2025 2:40 PM EST Visit (SP) Office Hematology/Oncology [address] [place] [address] [place] [address] Richardson Beltran MD [address] [place] [address] 4 week follow up for MRI and Ct results documented as of this encounter Visit Diagnoses Not on filedocumented in this encounter Care Teams Wire Roller Relationship Specialty Start Date End Date Keaton Peñaloza [address] [place] [address] PCP - General Internal Medicine 07/10/23 Yanick Cesar [address] [place] [address] Referring Skein Dyer 09/05/18 Pauline Fatima LSW Relief Charge Nurse 07/10/23 Little Bowens, RN [address] [place] [address] Specialty Salesman/Owner Hematology/Oncology 09/19/23 Cailin Montero PA-C [address] [place] [address] Physician Rip Saw Operator Hematology/Oncology 09/19/23 Richardson Beltran MD [address] [place] [address] Physician Hematology/Oncology 01/04/24 documented as of this encounter
--- OUTSIDE RECORDS SUMMARY | 2024-12-31 13:10 | XMS_ITS | Clinical Summary ---
Author Organization [facility] [employer] [facility] Address [id number] [address] [place] [address] Care Team Providers Care Percussion Teacher Name Role Phone MarissacandiceKeaton denis DO Primary Care Provider [phone] Allergies Active Allergy Reactions Criticality Noted Date [...] complication, with long-term current use of insulin ([facility] Use to inject insulin four times daily 400 each 1 024 Active irbesartan (AVAPRO) 300 mg tabletIndications :Essential hypertension Take 1 tablet by mouth every day 90 tablet 1 025 Active aspirin 81 mgIndications:Typ e 2 diabetes mellitus without complication, with long-term current use of insulin ([facility] Take 1 tablet by mouth every day [...] microalbuminuria, with long-term current use of insulin ([facility] Dial and inject 2 mg under the skin weekly 9 mL 11 025 Active insulin glargine (LANTUS SOLOSTAR U-100 INSULIN) 100 unit/mL (3 mL) insulin penIndications:Ty pe 2 diabetes mellitus without complication, with long-term current use of insulin [facility] Inject 60 Units under the skin nightly. 45 mL 1 025 Active meclizine (ANTIVERT) 25 mg tabletIndications :Benign paroxysmal positional vertigo, unspecified laterality Take 1 tablet by mouth every day as needed for dizziness 30 tablet 2 025 Active insulin glargine (LANTUS SOLOSTAR U-100 INSULIN) 100 unit/mL (3 mL) insulin penIndications:Ty pe 2 diabetes mellitus without complication, with long-term current use of insulin ([facility]) Inject 60 Units under the skin nightly. 45 mL 1 024 2024 Discontinued(R ashley) meclizine (ANTIVERT) 25 mg tabletIndications :Benign paroxysmal [...] (05/30/2022): Added automatically from request for surgery [id number] COVID-19 03/21/2021 Squamous cell carcinoma of vulva 10/29/2019 Carcinoma of vulva, FIGO stage IB 11/01/2018 Vulvar lesion 10/21/2018 Primary osteoarthritis of left knee 11/13/2016 Encounters Date Type Department Care Team Description 12/09/2024 Refill [facility] - Family Medicine [address] [place] [address] Keaton Peñaloza DO Benign paroxysmal positional vertigo, unspecified laterality 12/02/2024 Refill [facility] [address] [place] [address] Kassi Rosado CMA Type 2 diabetes mellitus without complication, with long-term current use of insulin ([facility] 11/28/2024 Refill [facility] - [facility] [address] [place] [address] Keaton Peñaloza DO Type 2 diabetes mellitus with microalbuminuria, with long-term current use of insulin ([facility] 11/24/2024 Telephone [facility] [address] [place] [address] Yolanda Roth [employer] 11/11/2024 Telephone [facility] [address] [place] [address] Yolanda Roth [facility] 11/07/2024 Refill [facility] - [facility] [address] [place] [address] Kassi Rosado, [employer] Benign paroxysmal positional vertigo, unspecified laterality 11/06/2024 Telephone [facility] [address] [place] [address] Kassi Rosado CMA 11/05/2024 1:00 PM EDT Office Visit [facility] [address] [place] [address] Keaton Peñaloza DO Type 2 diabetes mellitus with microalbuminuria, with long-term current use of insulin ([facility]) (Primary Dx); Depression, unspecified depression type; Mixed hyperlipidemia 11/05/2024 Orders Only [facility] [address] [place] [address] Keaton Peñaloza DO 11/02/2024 11:32 AM EDT - 11/02/2024 1:00 PM EDT Emergency [facility] Emergency [address] [place] [id number] Evangelista Stone MD Reactive airway disease with acute exacerbation, unspecified asthma severity, unspecified whether persistent (Primary Dx); Viral URI with cough; Hypertension, unspecified type Discharge Disposition: Home 11/02/2024 Travel 11/02/2024 [facility] [address] [place] [address] Keaton Peñaloza DO Panic attack as reaction to stress; Essential hypertension; Iron deficiency 10/30/2024 3:00 PM EDT Office Visit [facility] [address] [place] [address] Keaton Peñaloza DO Encounter for subsequent annual wellness visit (AWV) in Medicare patient (Primary Dx); PAF (paroxysmal atrial fibrillation) ([facility] Encounter for screening mammogram for malignant neoplasm of breast 10/30/2024 Travel 10/24/2024 Refill [facility] - [facility] [address] [place] [address] Keaton Peñaloza, Type 2 diabetes mellitus without complication, with long-term current use of insulin ([facility] 10/08/2024 Telephone [facility] [address] [place] [address] Yolanda Roth, [facility] 10/03/2024 Refill [facility] - [facility] Medicine [address] [place] [address] Keaton Peñaloza, Benign paroxysmal positional vertigo, unspecified laterality from [...] = 0.6 oz pur e alcohol) socially [employer] Utilities Answer Date Recorded In the past [...] any clubs o r organizations such as jain groups, unions, fraternal or athletic groups, or [...] Answer Date Recorded Total Score 0 11/05/2024 [facility] - Occupational [...] Do you need help finding a [facility] career center and/or a training program? [...] Medicine - Family Medicine [address] [place] [address] Keaton Peñaloza DO [address] [place] [address] Health Maintenance Due Date Last Done Comments Adult BMI Follow Up Plan 09/09/1975 Diabetic Ophthalmology Exam 09/26/2024 09/27/2023 Influenza Vaccine 01/19/2025 05/03/2017, , 02/16/2016, Additional history exists Statin Use: Diabetic 08/07/2025 08/07/2024 Medicare Annual Wellness Visit 10/30/2025 10/30/2024 , [...] self care. Medical Devices Implanted Type Area Sales Representative Public Utilities Device Identifier Shelf Expiration Date Model / Serial / Lot Cement Bn Palacos Radpq 40g Rpl [id number] - Sna - [id number] Implanted:Qty : 2 on 11/13/2016 by Keaton Gibson DO at [facility] Cement Left: Knee [employer] 04/19/2021 [id number] / NA / [id number] Sys Bn Cmnt Feroz Quik-Use - [id number] Implanted:Qty : 1 on 11/13/2016 by Keaton Gibson DO at [facility] Cement Left: Knee [employer] 11/13/2016 [id number] / NA / NA Description:only bone pick n ot an implant Cmpt Fem E Kn Lt Lpsflx Gndr Rpl [id number] - [id number] Implanted:Qty : 1 on 11/13/2016 by Keaton Gibson DO at [facility] Orthopedic Implant Left: Knee [employer] [id number] 08/18/2026 [id number] / NA / [id number] Cmpt Ptlr Std 9mm 35mm Nxgn Rpl [id number] - [id number] Implanted:Qty : 1 on 11/13/2016 by Keaton Gibson DO at [facility] Orthopedic Implant Left: Knee [employer] [id number] 09/17/202452-40[address]-989- 35 / NA / [id number] Ins Artc 5-6 E-F 10mm Kn Fx Rpl [id number] - [id number] Implanted:Qty : 1 on 11/13/2016 by Keaton Gibson DO at [facility] Orthopedic Implant Left: Knee [employer] [id number] 09/17/202122-6884-232- 10 / NA / [id number] Plt Tib [id number] Nxgn Opt Kn Sz5 Rpl [id number] - [id number] Implanted:Qty : 1 on 11/13/2016 by Keaton Gibson DO at [facility] Plate Left: Knee [employer] [id number] 05/20/202632-9120-579- 01 / NA / [id number] Explanted Type Area Sales Representative Public Utilities Device Identifier Shelf Expiration Date Model / Serial / Lot Scr Bn 35mm 6.5mm St Noel Hip Rpl [id number] - [id number] Explanted:Qty: 2 on 11/13/2016 by Keaton Gibson DO at [facility] Screw Left: Knee [employer] [id number] 07/18/202664-9643-066-35 / / [id number] Scr Gd 48mm Qd-Spr Kn Hd Mis - [id number] Explanted:Qty: 2 on 11/13/2016 by Keaton Gibson DO at [facility] Screw Left: Knee [employer] [id number] 09/17/2026 [id number] / NA / [id number] Procedures Procedure Name Priority Date/Time Associated Diagnosis Comments HC DIRECT LDL Routine 11/05/2024 1:48 PM EDT Type 2 diabetes mellitus with microalbuminuria, with long-term current use of insulin ([facility] COMPREHENSIVE METABOLIC PANEL Routine 11/05/2024 1:48 PM EDT Type 2 diabetes mellitus with microalbuminuria, with long-term current use of insulin ([facility] HEMOGLOBIN A1C Routine 11/05/2024 1:48 PM EDT Type 2 diabetes mellitus with microalbuminuria, with long-term current use of insulin ([facility]) LIPID PROFILE Routine 11/05/2024 1:48 PM EDT Type 2 diabetes mellitus with microalbuminuria, with long-term current use of insulin ([facility] MICROALBUMIN / CREATININE URINE RATIO Routine 11/05/2024 1:48 PM EDT Type 2 diabetes mellitus with microalbuminuria, with long-term current use of insulin ([facility] SARS/FLU A+B/RSV BY NAAT/MOLECULAR (M4RT COLLECTION TUBE) [...] 87 <=130 mg/dL 11/05/2024 8:17 PM EDT [facility] Comment: LDL <100 mg/dL - Desirable LDL 130-159 mg/dL - Borderline High Risk LDL >160 mg/dL - High Risk Blood Venous blood / Unknown 11/05/2024 1:48 PM EDT 11/05/2024 1:48 PM EDT Keaton Hamilton Jh BUNN LAB ORDERABLES Final Result [facility] [address] [place] [address], * (ABNORMAL) Microalbumin - Albumin: Creatinine Urine Ratio (11/05/2024 1:48 PM EDT) URINE CREATININE,RDM 160.31 mg/dL 11/05/2024 7:22 PM EDT [facility] MALB/CREAT RATIO 671.8(H) 0.0 - 30.0 mg/g 11/05/2024 7:22 PM EDT [facility] MICROALBUMIN, URINE 107.7(H) 0.0 - 1.9 mg/dL 11/05/2024 7:22 PM EDT [facility] Urine Urine specimen collection, clean catch / Unknown 11/05/2024 1:48 PM EDT 11/05/2024 1:48 PM EDT Keaton Joy Jh BUNN URINE ORDERABLES Final Result Performing Organization Address [facility]/ZIP Co de Phone Number [facility] [address] [place] [address], [place] [phone] * (ABNORMAL) Hemoglobin A1c (11/05/2024 1:48 PM EDT) HEMOGLOBIN A1C 13.3(H) 4.4 - 5.6 % 11/05/2024 9:50 PM EDT [facility] Comment: ADA Guidelines Result HgbA1c Normal : less than 5.7 % Prediabetes : 5.7 % to 6.4 % Diabetes : > 6.4 % Use with caution in patients with abnormal hemoglobin variants as the half-life of red blood cells and in vivo glycation rates are affected. EST. AVERAGE GLUCOSE 335 mg/dL 11/05/2024 9:50 PM EDT [facility] Blood Venous blood / Unknown 11/05/2024 1:48 PM EDT 11/05/2024 1:48 PM EDT us Keaton Peñaloza DO LAB BLOOD ORDERABLES Final Resul t [facility] [address] [place] [address], [place] [phone] * (ABNORMAL) Lipid profile (11/05/2024 1:48 PM EDT) CHOLESTEROL 165 150 - 200 mg/dL 11/05/2024 7:06 PM EDT [facility] TRIGLYCERIDE 462(H) 27 - 150 mg/dL 11/05/2024 7:06 PM EDT [facility] HDL CHOLESTEROL 38(L) >39 mg/dL 7:06 PM EDT [facility] Comment: HDL <40 mg/dL - High Risk HDL > or = 40mg/dL- Desirable HDL >60 mg/dL - Negative Risk CHOLESTEROL:HDL 4.3 1.0 - 5.0 7:06 PM EDT [facility] VERY LOW LIPOPROTEIN 92(H) 0 - 30 mg/dL 11/05/2024 7:06 PM EDT [facility] Blood Venous blood / Unknown 11/05/2024 1:48 PM EDT 11/05/2024 1:48 PM EDT Narrative [facility] - 11/05/2024 7:06 PM EDT LDL (CALC) Not reported due to high Triglyceride Keaton Peñaloza DO LAB BLOOD ORDERABLES Final Resul t [facility] [address] [place] [address], [place] [phone] * (ABNORMAL) Comprehensive metabolic panel (11/05/2024 1:48 PM EDT) SODIUM 140 134 - 146 mmol/L 11/05/2024 7:01 PM EDT [facility] POTASSIUM 3.6 3.5 - 5.0 mmol/L 11/05/2024 7:01 PM EDT [facility] CHLORIDE 99 98 - 109 mmol/L 11/05/2024 7:01 PM EDT [facility] CARBON DIOXIDE 29 22 - 32 mmol/L 11/05/2024 7:01 PM EDT [facility] ANION GAP 12 5 - 15 mmol/L 11/05/2024 7:01 PM EDT [facility] BLOOD UREA NITROGEN 24 5 - 27 mg/dL 11/05/2024 7:01 PM EDT [facility] CREATININE 1.19(H) 0.40 - 1.00 mg/dL 11/05/2024 7:01 PM EDT [facility] Comment:METHOD TRACEABLE TO IDMS STANDARD GLUCOSE 350(H) 65 - 99 mg/dL 11/05/2024 7:01 PM EDT [facility] CALCIUM 9.6 8.5 - 10.5 mg/dL 11/05/2024 7:01 PM EDT [facility] TOTAL PROTEIN 7.0 6.0 - 8.0 g/dL 11/05/2024 7:01 PM EDT [facility] ALBUMIN 3.9 3.2 - 5.3 g/dL 11/05/2024 7:01 PM EDT [facility] ALKALINE PHOSPHATASE 93 39 - 130 U/L 11/05/2024 7:01 PM EDT [facility] AST 13 <=41 U/L 11/05/2024 7:01 PM EDT [facility] ALT 13 <=31 U/L 11/05/2024 7:01 PM EDT [facility] BILIRUBIN,TOTAL 0.8 0.3 - 1.2 mg/dL 11/05/2024 7:01 PM EDT [facility] EGFR Non-Race Dependent 50(L) >=60 ml/min/1.7 3sq.m 11/05/2024 7:01 PM EDT [facility] Comment: Reported eGFR is based on the CKD-EPI 2020 equation that does not use a race coefficient. Blood Venous blood / Unknown 11/05/2024 1:48 PM EDT 11/05/2024 1:48 PM EDT Keaton Peñaloza DO LAB BLOOD ORDERABLES Final Resul t [facility] [address] [place] [address], * SARS/FLU A+B/RSV by NAAT/Molecular (M4RT Collection Tube) (11/02/2024 11:36 AM EDT) Pathologist [facility] FLU A PCR Negative Negative 11/02/2024 12:18 PM EDT [facility] FLU B PCR Negative Negative 11/02/2024 12:18 PM EDT [facility] RSV BY PCR Negative Negative 11/02/2024 12:18 PM EDT [facility] SARS COV 2 BY PCR Not Detected Not Detected 11/02/2024 12:18 PM EDT [facility] Swab Nasopharyngeal structure / Unknown 11/02/2024 11:36 AM EDT 11/02/2024 11:37 AM EDT Narrative [facility] - 11/02/2024 12:18 PM EDT [...] operators who are performing tests using either Shustir DX or Conservis systems and is limited to laboratories that [...] specimen repeat. Fact Sheet for Healthcare Providers: https://www.fda.gov/media/989402/download Fact Sheet for Patients: https://www.fda.gov/media/298115/download Evangelista Stone MD MICROBIOLOGY - GENERAL OR DERABLES Final Result [facility] [address] [place] [address], * DIABETES EYE EXAM (09/27/2023 1:46 PM EDT) Keaton Peñaloza DO HEALTH MAINTENANCE Final Result MANUALLY TRANSCRIBED RESULTS * High risk HPV w/zane (06/18/2023 5:35 AM EST) Hpv specimen type ThinPrep 06/19/2023 5:35 AM EST [facility] Hpv 16 Negative Negative^N egative 06/19/2023 2:12 PM EST [facility] Hpv 18 Negative Negative^N egative 06/19/2023 2:12 PM EST [facility] Other high risk hpv Negative Negative^N egative 06/19/2023 2:12 PM EST [facility] Comment: HPV types 31,33,35,39,45,52,56,58,59,66 and 68 DNA were undetectable. THINP 06/18/2023 5:35 AM EST 06/19/2023 5:36 AM EST us Grace Bruce MD LAB BLOOD ORDERABLES Final Res ult [place] [id number] [facility] [place] [address] [facility] [address] [place] [address], [address] [place] [address] from Last 3 Months or Most Recently Relevant to Health Maintenance Insurance [facility] MED[facility]ARE [facility] Advance Directives * Full Code (Latest Code Status on File) Date Activated Date Inactivated Comments 07/30/2023 2:34 PM 08/01/2023 3:54 PM * Full Code Date Activated Date Inactivated Comments 03/21/2021 2:25 PM 03/25/2021 8:35 PM * Full Code Date Activated Date Inactivated Comments 11/01/2018 4:35 PM 11/03/2018 7:24 PM Care Teams Percussion Teacher Relationship Specialty Start Date End Date Keaton Peñaloza DO [address] [place] [address] PCP - General Internal Medicine 06/24/24
--- OUTSIDE RECORDS SUMMARY | 2024-12-31 13:10 | XMS_ITS | Encounter Summary ---
Author Organization [facility] Address [id number] [address] [place] [address] Care Team Providers Care Sugar Refiner Name Role Phone Keaton Peñaloza DO Primary Care Provider [phone] Encounter Details Date Type Department Care Team (Late st Contact Info) Description 12/12/2023 Orders Only [facility] Internal Medicine - Family Medicine [address] [place] [phone] Keaton Peñaloza DO [address] [place] [address] Social History Tobacco Use Types Packs/Day Years Used Date Smoking Tobacco: Former Cigarettes Q uit: 1976 Smokeless Tobacco: Never Comments:smoked for 1 year w hen was age 18 Alcohol Use Standard Drinks/Week Comments Yes 1 (1 standard drink = 0.6 oz pur e alcohol) socially [employer] Utilities Answer Date Recorded In the past 12 months has [employer], gas, oil, or water [employer] threatened to shut off services in your [...] How often do you attend chur or buddhism services? More than 4 times per year 02/27/2023 Do you belong to any clubs o r organizations such as spiritism groups, unions, fraternal or athletic groups, or [...] Answer Date Recorded Total Score 17 08/20/2023 [facility] - Occupational Stress Questionnaire Answer [...] Recorded Do you need help finding a [facility] and/or a training [...] Internal Medicine - Family Medicine [address] [facility] [place] [address] Keaton Peñaloza DO [address] [place] [address] documented as of this encounter Goals Goal [...] documented as of this encounter Care Teams Sugar Refiner Relationship Specialty Start Date End Date Keaton Peñaloza DO [address] [facility] [place] [place] [address] PCP - General Internal Medicine 06/24/24 documented as of this encounter
--- OUTSIDE RECORDS SUMMARY | 2024-12-31 13:10 | XMS_ITS | Encounter Summary ---
Author Organization [employer] Address [id number] [address] [place] [address] Care Team Providers Care Mountain Guide Name Role Phone JhKeaton DO Primary Care Provider [phone] Encounter Details Date Type Department Care Team (Late st Contact Info) Description 04/11/2024 Telephone [facility] Internal Medicine - Family Medicine [address] [place] [phone] Vannessa Harris CMA Social History Tobacco Use Types Packs/Day Years Used Date Smoking Tobacco: Former Cigarettes Q uit: 1976 Smokeless Tobacco: Never Comments:smoked for 1 year w hen was age 18 Alcohol Use Standard Drinks/Week Comments Yes 1 (1 standard drink = 0.6 oz pur e alcohol) socially [employer] Utilities Answer Date Recorded In the past [...] often do you attend chur ch or jainism services? More than 4 times per year 02/27/2023 Do you belong to any clubs o r organizations such as taoist groups, unions, fraternal or athletic groups, or [...] Answer Date Recorded Total Score 17 08/20/2023 [facility] ional [facility] - Occupational Stress Questionnaire Answer Date [...] Recorded Do you need help finding a [facility] and/or a training [...] Internal Medicine - Family Medicine [address] [place] [address] Keaton Peñaloza DO [address] [place] [address] documented as of this encounter Goals Goal [...] documented as of this encounter Care Teams Mountain Guide Relationship Specialty Start Date End Date Keaton Peñaloza DO [address] [place] [address] PCP - General Internal Medicine 06/24/24 documented as of this encounter
--- OUTSIDE RECORDS SUMMARY | 2024-12-31 13:10 | XMS_ITS | Encounter Summary ---
Author Organization [facility] Address [address] [place] [address] Care Team Providers Care Die Finisher Forging Name Role Phone Yanick Cesar Unavailable Keaton Peñaloza Primary Care Provider [phone] Pauline FatimaW Unavailable Unavailable Little Bowens RN Unavailable [phone] Arturo Mcdonald MD Unavailable [phone] Cailin Montero PA-C Unavailable [phone] Richardson Beltran MD Unavailable [phone] Source Comments In the event this information is protected by the Federal Confidentiality of Alcohol and Drug AbusePatient Records regulations: The Federal rules restrict any use of the information to criminally investigate or prosecute any alcohol or drug abuse patient.[facility] Encounter Details Date Type Department Care Team (Late st Contact Info) Description 08/10/2023 Lab Requisition [facility] [address] [place] [address] [place] [address] [place] [id number] Person encountering health services to consult on [...] is lower risk 6 07/10/2023 Data from: https://www.neighborhoodatlas.[facility]/. Last address used for calculation [address] [...] PM EDT Appointment Radiology Pet CT [address] [place] [address] Ct Chest without contrast 03/19/2025 3:20 PM EDT Appointment [facility] [place] [address] [place] [address] MRI Rectum w/wo contrast 03/23/2025 2:15 PM EST Office Visit [facility] Laboratory [facility] [place] [address] 4 week follow up for MRI and Ct results 03/23/2025 2:40 PM EST Visit (SP) Office Hematology/Oncology [facility] [place] [address] Richardson Beltran MD [address] [place] [address] [place] [address] 4 week follow up for MRI and [...] Proficient (Microsatellite Stable) 4 5:05 PM EDT [facility] MLH1 Immunohistochemical Results Normal/Intact Nuclear Expression 4 5:05 PM EDT [facility] PMS2 Immunohistochemical Results Normal/Intact Nuclear Expression 4 5:05 PM EDT [facility] MSH2 Immunohistochemical Results Normal/Intact Nuclear Expression 4 5:05 PM EDT [facility] MSH6 Immunohistochemical Results Normal/Intact Nuclear Expression 4 5:05 PM EDT [facility] MLH1 Promoter Methylation Assay No 4 5:05 PM EDT [facility] Tumor Type Primary Colorectal Adenocarcinoma 4 5:05 PM EDT [facility] 4 5:05 PM EDT [facility] Referring Laboratory ([employer], [place], [place]) 4 5:05 PM EDT [facility] Block ID [id number] 1C 4 5:05 PM EDT [facility] Fixative Formalin, 10% Neutra l Buffered 4 5:05 PM EDT [facility] Interpretation Comment and Reference Range [...] questions about this result, please call the [facility] for Personalized [employer] at [phone]. 5:05 PM EDT [facility] Method Immunohistochemistry was performed on formalin fixed paraffin-embedded tissue using the following clones: MLH1 (clone M1 mouse monoclonal); MSH2 ([id number] mouse monoclonal); and MSH6 ([id number] rabbit monoclonal); followed by ultrasensitive bright field detection (Optiview with amplification) from [[employer], [place]]. PMS2 ([id number] Rabbit monoclonal, [employer]); followed by ultrasensitive bright field detection ( Cho Refine Polymer DAB Detection) from [[employer], [place], [place]]. 5:05 PM EDT [facility] Disclaimer Laboratory Developed Test (LDT) Disclaimer: Performance characteristics of immunohistochemical, immunofluorescent and chromogenic in-situ hybridization tests have been determined by the performing laboratory within [facility] s [facility] Ye Pathology and Laboratory Medicine [place] ([facility], [facility], [facility], [facility], [facility], [facility], or [facility]) in a manner consistent with CLIA requirements. One or more of these tests have not been cleared or approved by the FDA. [facility] is regulated under CLIA as qualified to perform high-complexity testing. These tests are used for clinical purposes. They should not be regarded as investigational or for research. Positive and negative controls stain appropriately. 5:05 PM EDT [facility] Performing Lab Diagnostic interpretation performed at [facility], [address] [place], [place] [address] [id number] CLIA: [id number] Um Nurse: Jimmie Ruiz MD Electronically signed out by: Christopher Leo MD 5:05 PM EDT [facility] Blocks or Slides PARAFFIN EMBEDDED TISSUE BLOCK SPECIMEN / Unknown 08/10/2023 10:48 AM EDT 08/22/2023 3:35 PM EDT us Evans Garza MD SURGICAL PATHOLOGY Final Resu lt [facility] [address] [place] [address], [place] * OUTSIDE SURG PATH SLIDE REVIEW (08/10/2023 10:48 AM EDT) Case Report Surgical Pathology Report Case: [id number] Authorizing Provider: Evans Garza MD Collected: 08/10/2023 10:48 AM Ordering Location: [facility] Received: 08/10/2023 10:45 AM [facility] Pathologist: Ricardo Gongora MD Specimen: SLIDE(S)/BLOCK(S) , 14 SLIDES & 1 BLOCK (1A), [id number] 08/13/2023 3:39 PM EDT [facility] FINAL DIAGNOSIS [place] ([id number]; 06/26/2023) Rectal mass, procedure not specified: - 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 2. Anal verge, procedure not specified: - Inflammatory cloacogenic polyp, ulcerated, negative for dysplasia or carcinoma. 08/13/2023 3:39 PM EDT [facility] at 1539 EDT Performing Lab Diagnostic interpretation performed at [facility], [address] [place] [address] CLIA# [id number] Um Nurse: Jimmie Ruiz M.D. 08/13/2023 3:39 PM EDT [facility] Blocks or Slides PARAFFIN EMBEDDED TISSUE BLOCK SPECIMEN / Unknown 08/10/2023 10:48 AM EDT 08/10/2023 10:45 AM EDT us Evans Garza MD SURGICAL PATHOLOGY Final Resu lt [facility] [address] [place] [address], documented in this encounter Visit Diagnoses Diagnosis Person encountering health services to consult on behalf of another person Other person consulting on behalf of another person documented in this encounter Care Teams Die Finisher Forging Relationship Specialty Start Date End Date Luiscira Keaton Conteh [address] [place] [address] PCP - General Internal Medicine 07/10/23 Yanick Cesar [address] [place] [address] Referring Emergency Room Specialist 09/05/18 Pauline Fatima LSW Remotely Piloted Vehicle Controller 07/10/23 Little Bowens RN [address] [place] [address] [place] [address] Specialty [employer] Hematology/Oncology 09/19/23 Arturo Mcdonald MD [address] [place] [address] [place] [address] Physician Hematology/Oncology 09/19/23 01/03/24 Cailin Montero PA-C [address] [place] [address] [place] [address] Physician Bioinformatics Technician Hematology/Oncology 09/19/23 Richardson Beltran MD [address] [place] [address] Physician Hematology/Oncology 01/04/24 documented as of this encounter
--- OUTSIDE RECORDS SUMMARY | 2024-12-31 13:10 | XMS_ITS | Encounter Summary ---
Author Organization [facility] tem Address [id number] [place] [address] Care Team Providers Care Grocery Clerk Name Role Phone Keaton Peñaloza DO Primary Care Provider [phone] Encounter Details Date Type Department Care Team (Late Contact Info) Description 11/01/[address] [facility] [address] [place] [phone] Briseyda Eastman, MANAGER STUDENT SERVICES-CLUB DIRECTOR [address] [place] [address] Social History Tobacco Use Types Packs/Day Years [...] Description 02/05/2025 1:30 PM EDT Office Visit [facility] Internal Medicine - Family Medicine [address] [place] [address] Keaton Peñaloza DO [address] [place] [address] documented as of this encounter Procedures Procedure [...] Chest Left Computed Radiogr aphy Briseyda Eastman [facility] DIAGNOSTIC IMAGING ORDERABLES Final Result * X-ray shoulder left minimum 2 views (09/26/2022) Anatomical Region Laterality Modality MSK, Upper Extremities, Shoulder Left Computed Radiography [facility]yda Eastman [facility] Final Result * MR brain with and without contrast (03/28/2022) Anatomical Region Laterality Modality Neuro, Head, Head and Neck, Neuro Covera N/A Magnetic Resonance Nino Kam DO [facility] MRI ORDERABLES Salome l Result documented in [...] documented as of this encounter Care Teams Grocery Clerk Relationship Specialty Start Date End Date Keaton Peñaloza DO [address] [place] [address] PCP - General Internal Medicine 06/24/24 documented as of this encounter
--- OUTSIDE RECORDS SUMMARY | 2024-12-31 13:10 | XMS_ITS | Encounter Summary ---
Author Organization [facility] Address [id number] [place] [address] Care Team Providers Care Metal Fabricating Shop Helper Name Role Phone JhKeaton DO Primary Care Provider [phone] Reason for Visit * Reason Onset Date Comments Transition Of Care 08/02/2023 Encounter Details Date Type Department Care Team (Late st Contact Info) Description 08/02/2023 Telephone [facility] Internal Medicine - Family Medicine [address] [place] [address] Lauren Carson, baked goods stock clerk Of Care Social History Tobacco Use Types Packs/Day Years Used Date Smoking Tobacco: Former Cigarettes Q uit: 1976 Smokeless Tobacco: Never Comments:smoked for 1 year w tab was age 18 Alcohol Use Standard Drinks/Week Comments Yes 1 (1 standard drink = 0.6 oz pur e alcohol) socially C Utilities Answer Date Recorded In the past 12 months has [employer] electric, gas, oil, or water company threatened [...] often do you attend chur ch or caodaism services? More than 4 times per year [...] Answer Date Recorded Total Score 0 06/12/2023 [facility] - [...] Discharge Specialty: Cardiac *Name of Discharging Facility: [facility] Date of Facility Discharge: Admitted: 07/30/23 Discharged: 08/01/23 Date of Interactive Contact and Name of Dental Laboratory Worker: 08/02/23 @ 935 am: no answer, left [...] Medicine - Family Medicine [address] [place] [address] Keaton Peñaloza DO [address] [place] [address] documented as of this encounter Goals Goal [...] documented as of this encounter Care Teams Metal Fabricating Shop Helper Relationship Specialty Start Date End Date Keaton Peñaloza DO [address] [place] [address] PCP - General Internal Medicine 06/24/24 documented as of this encounter
--- OUTSIDE RECORDS SUMMARY | 2024-12-31 13:10 | XMS_ITS | Encounter Summary ---
Author Organization [facility] Sys tem Address [id number] [address] [place] [address] Care Team Providers Care Motor Vehicle License Clerk Name Role Phone JhKeaton DO Primary Care Provider [phone] Reason for Visit * Reason Onset Date Comments Med Refill 03/20/2024 Encounter Details Date Type Department Care Team (Late st Contact Info) Description 03/20/2024 Refill [facility] Internal Medicine - Family Medicine [address] [place] [address] Aurea Moreau, ALAN Social History Tobacco Use Types Packs/Day Years Used Date Smoking Tobacco: Former Cigarettes Q uit: 1976 Smokeless Tobacco: Never Comments:smoked for 1 year w hen was age 18 Alcohol Use Standard Drinks/Week Comments Yes 1 (1 standard drink = 0.6 oz pur e alcohol) socially C Utilities Answer Date Recorded In the past 12 months has [employer] electric, gas, oil, or water company threatened [...] often do you attend chur ch or amish services? More than 4 times per year 02/27/2023 Do you belong to any clubs o r organizations such as advent groups, unions, fraternal or athletic groups, or [...] Score 17 08/20/2023 [facility] Occupat ional Health - [...] Do you need help finding a [facility] career center and/or a training [...] Internal Medicine - Family Medicine [address] [place] [address] Keaton Peñaloza DO [address] [place] [address] documented as of this encounter Goals Goal [...] documented as of this encounter Care Teams Motor Vehicle License Clerk Relationship Specialty Start Date End Date Keaton Peñaloza DO [address] [facility] [place] [address] PCP - General Internal Medicine 06/24/24 documented as of this encounter
--- OUTSIDE RECORDS SUMMARY | 2024-12-31 13:10 | XMS_ITS ---
Author Organization [facility] Address [address] [place] [address] Care Team Providers Care Software Solutions Architect Name Role Phone Yanick Cesar Unavailable Keaton Peñaloza Primary Care Provider [phone] Pauline Fatima FACULTY SUPPORT COORDINATOR Unavailable Unavailable Little Bowens RN Unavailable [phone] Cailin MonteroC Unavailable [phone] Richardson Beltran MD Unavailable [phone] Active Problems Problem Noted Date Diagnosed [...]
--- OUTSIDE RECORDS SUMMARY | 2024-12-31 13:11 | XMS_ITS | Encounter Summary ---
Author Organization [facility] Sys tem Address [id number] [address] [place] [address] Care Team Providers Care Journeyman Apprentice Electricians Name Role Phone Keaton Peñaloza DO Primary Care Provider [phone] Reason for Visit * Reason Comments Med Refill Encounter Details Date Type Department Care Team (Late st Contact Info) Description 10/03/2024 Refill [facility] Internal Medicine - Family Medicine [address] [place] [address] Keaton Peñaloza DO [address] [place] [address] Benign paroxysmal positional vertigo, unspecified laterality Social History Tobacco Use Types Packs/Day Years Used Date Smoking Tobacco: Former Cigarettes Q uit: 1976 Smokeless Tobacco: Never Comments:smoked for 1 year w hen was age 18 Alcohol Use Standard Drinks/Week Comments Yes 1 (1 standard drink = 0.6 oz pur e alcohol) socially documistic Utilities Answer Date Recorded In the past 12 months has [employer], gas, oil, or water [employer] threatened to shut off services in your [...] any clubs o r organizations such as catholic groups, unions, fraternal or athletic groups, [...] Internal Medicine - Family Medicine [address] [place] [address] Keaton Peñaloza DO [address] [place] [address] documented as of this encounter Goals Goal [...] documented as of this encounter Care Teams Journeyman Apprentice Electricians Relationship Specialty Start Date End Date Keaton Peñaloza DO [address] [place] [address] PCP - General Internal Medicine 06/24/24 documented as of this encounter
--- OUTSIDE RECORDS SUMMARY | 2024-12-31 13:11 | XMS_ITS | Encounter Summary ---
Author Organization [facility] Address [id number] [address] 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 More than 4 times per year [...] Answer Date Recorded Total Score 0 06/12/2023 [facility] Occupat ional Health [...] Internal Medicine - Family Medicine [address] [place] [address] Keaton Peñaloza DO [address] [place], [place] [address] documented as of this encounter Results * (ABNORMAL) CEA (06/14/2023 1:44 PM EST) CEA 4.5(H) 0.0 - 3.0 ng/mL 06/14/2023 10:58 PM EST [facility] Comment: 0.0-3.0 ng/mL FOR NON SMOKERS 0.0-5.0 ng/mL FOR SMOKERS The method used for this test is Meseret [place] DXI chemiluminescent immunoassay. Values obtained by different assay methods cannot be used interchangeably. Blood Serum / Unknown 06/14/2023 1 :44 PM EST 06/14/2023 10:13 PM EST Keaton Peñaloza DO LAB BLOOD ORDERABLES Final Resul t [facility] [address] [place] [address] documented in this encounter Visit Diagnoses Diagnosis [...] documented as of this encounter Care Teams Corporate Statistical Financial Analyst Relationship Specialty Start Date End Date Keaton Peñaloza DO [address] [place] [address] PCP - General Internal Medicine 06/24/24 documented as of this encounter
--- OUTSIDE RECORDS SUMMARY | 2024-12-31 13:11 | XMS_ITS | Encounter Summary ---
Author Organization [email or web address] Address [facility][id number] [address] [place] [address] Care Team Providers Care Office Clinician Name Role Phone Keaton Peñaloza DO Primary Care Provider [phone] Reason for Visit * Reason Comments Med Refill Encounter Details Date Type Department Care Team (Late st Contact Info) Description 10/24/2024 Refill [facility] Internal Medicine - Family Medicine [address] [place] [address] Keaton Peñaloza DO [address] [place] [address] Type 2 diabetes mellitus without complication, with long-term current use of insulin ([facility]) Social History Tobacco Use Types Packs/Day Years Used Date Smoking Tobacco: Former Cigarettes Q uit: 1976 Smokeless Tobacco: Never Comments:smoked for 1 year w hen was age 18 Alcohol Use Standard Drinks/Week Comments Yes 1 (1 standard drink = 0.6 oz pur e alcohol) socially [employer] Utilities Answer Date Recorded In the past 12 months has [employer], gas, oil, or water [employer] threatened to shut off services in your [...] often do you attend [facility] or methodist services? More than 4 times per year [...] Answer Date Recorded Total Score 17 08/20/2023 [facility] Occupat ional Health - Occupational Stress [...] Recorded Do you need help finding a [facility] career center and/or a [...] Internal Medicine - Family Medicine [address] [place] [address] Keaton Peñaloza, [address] [place] [address] documented as of this encounter Goals Goal Patient Goal Type Associated Problems Recent Progress Patient-Stated? Author safe transition to home General Yes Nini De Luna LSW Note: Evaluation of progress towards goal: safe transition to home with self care. documented as of this encounter Visit Diagnoses Diagnosis Type 2 diabetes mellitus without complication, with long-term current use of insulin ([facility]) documented in this encounter Additional Health Concerns Infection Onset Date Last Indicated Resolved Time Respiratory Rule-Out 11/02/2024 11/02/2024 025 12:18 PM EDT Assessment Noted Time PHQ-9 Depression Total Score: 17 024 1:37 PM EDT A Body Mass Index follow-up plan has been documented for the patient 04/23/2019 8:40 AM EST documented as of this encounter Care Teams Office Clinician Relationship Specialty Start Date End Date Keaton Peñaloza DO [address] [place] [address] PCP - General Internal Medicine 06/24/24 documented as of this encounter
--- OUTSIDE RECORDS SUMMARY | 2024-12-31 13:11 | XMS_ITS | Encounter Summary ---
Author Organization [facility] [facility] Address [facility] [place] [place]-[id number] [address] [place] [address] Care Team Providers Care Tank Truck Milk Receiver Name Role Phone JhKeaton DO Primary Care Provider [phone] Encounter Details Date Type Department Care Team (Late st Contact Info) Description 11/11/2024 Telephone [facility] Internal Medicine - Family Medicine [address] [place] [address] Yolanda Roth CMA Social History Tobacco Use Types Packs/Day Years Used Date Smoking Tobacco: Former Cigarettes Q uit: 1976 Smokeless Tobacco: Never Comments:smoked for 1 year w hen was age 18 Alcohol Use Standard Drinks/Week Comments Yes 1 (1 standard drink = 0.6 oz pur e alcohol) socially [employer] Utilities Answer Date Recorded In the past [...] often do you attend chur ch or presybeterian services? More than 4 times per year [...] Answer Date Recorded Total Score 0 11/05/2024 [facility] Occupat ional [...] Internal Medicine - Family Medicine [address] [place] [address] Keaton Peñaloza DO [address] [place] [address] documented as of this encounter Goals Goal [...] documented as of this encounter Care Teams Tank Truck Milk Receiver Relationship Specialty Start Date End Date Keaton Peñaloza DO [address] [place] [address] PCP - General Internal Medicine 06/24/24 documented as of this encounter
--- OUTSIDE RECORDS SUMMARY | 2024-12-31 13:11 | XMS_ITS | Encounter Summary ---
Author Organization [facility] Sys [facility] Address [facility][id number] [address] [place] [address] Care Team Providers Care Cat Scan Tech Name Role Phone Keaton Peñaloza Joy BUNN Primary Care Provider [phone] Encounter Details Date Type Department Care Team (Late st Contact Info) Description 06/20/2023 Orders Only [facility] General Surgery [address] [place] [address] Jackeline Riggins CMA Social History Tobacco Use [...] How often do you attend chur or orthodox services? More than 4 times per year 02/27/2023 Do you belong to any clubs o r organizations such as alevism groups, unions, fraternal or athletic groups, or [...] Answer Date Recorded Total Score 0 06/12/2023 [facility] Occupat ional Health - [...] Recorded Do you need help finding a [facility] career [facility] and/or a training program? [...] Internal Medicine - Family Medicine [address] [place] [address] Keaton Peñaloza DO [address] [place] [address] documented as of this encounter Visit Diagnoses [...] documented as of this encounter Care Teams Cat Scan Tech Relationship Specialty Start Date End Date Keaton Peñaloza DO [address] [place] [address] PCP - General Internal Medicine 06/24/24 documented as of this encounter
--- OUTSIDE RECORDS SUMMARY | 2024-12-31 13:11 | XMS_ITS | Encounter Summary ---
Author Organization [employer] Sys tem Address [facility] [id number] [address] [place] [address] Care Team Providers Care Conservation Enforcement Officer Name Role Phone Jh Keaton Joy BUNN Primary Care Provider [phone] Encounter Details Date Type Department Care Team (Late st Contact Info) Description 03/19/2023 Telephone [facility] Internal Medicine - Family Medicine [address] [place] [address] Winter Snider CMA Social History [...] How often do you attend chur or samaritan services? More than 4 times per year 02/27/2023 Do you belong to any clubs o r organizations such as mormon groups, unions, fraternal or athletic groups, or [...] Answer Date Recorded Total Score 2 02/27/2023 [facility] of Occupat ional Health [...] Medicine - Family Medicine [address] [facility] [place] [address] Keaton Peñaloza DO [address] [place] [address] documented as of this encounter Visit Diagnoses [...] documented as of this encounter Care Teams Conservation Enforcement Officer Relationship Specialty Start Date End Date Keaton Peñaloza DO [address] [facility] [place] [address] PCP - General Internal Medicine 06/24/24 documented as of this encounter
--- OUTSIDE RECORDS SUMMARY | 2024-12-31 13:11 | XMS_ITS | Encounter Summary ---
Author Organization [employer] Sys [employer] Address [facility] [id number] [address] [place] [address] Care Team Providers Care Milk Handler Name Role Phone JhKeaton DO Primary Care Provider [phone] Encounter Details Date Type Department Care Team (Late st Contact Info) Description 10/08/2024 Telephone [facility] Internal Medicine - Family Medicine [address] [place] [address] Yolanda Roth CMA Social History Tobacco Use Types Packs/Day Years Used Date Smoking Tobacco: Former Cigarettes Q uit: 1976 Smokeless Tobacco: Never Comments:smoked for 1 year w hen was age 18 Alcohol Use Standard Drinks/Week Comments Yes 1 (1 standard drink = 0.6 oz pur e alcohol) socially Modusly Utilities Answer Date Recorded In the past [...] Internal Medicine - Family Medicine [address] [place] [address] Keaton Peñaloza DO [address] [place] [address] documented as of this encounter Goals Goal [...] documented as of this encounter Care Teams Milk Handler Relationship Specialty Start Date End Date Keaton Peñaloza DO [address] [place] [facility] [address] PCP - General Internal Medicine 06/24/24 documented as of this encounter
--- OUTSIDE RECORDS SUMMARY | 2024-12-31 13:11 | XMS_ITS | Encounter Summary ---
Author Organization [facility] Address [facility] [place][id number] [address] [place] [address] Care Team Providers Care Stripper And Opaquer Apprentice Name Role Phone Keaton Peñaloza DO Primary Care Provider [phone] Encounter Details Date Type Department Care Team (Late st Contact Info) Description 06/12/2023 Orders Only [facility] Internal Medicine - Family Medicine [address] [place] [address] Keaton Peñaloza DO [address] [place] [address] Hypokalemia due to excessive gastrointestinal loss of [...] Answer Date Recorded Total Score 0 06/12/2023 [facility] of Occupat ional Health - Occupational [...] Recorded Do you need help finding a orthopaedic hospitalal career center and/or a training program? [...] Internal Medicine - Family Medicine [address] [place] [address] Keaton Peñaloza DO [address] [place] [address] documented as of this encounter Visit Diagnoses [...] documented as of this encounter Care Teams Stripper And Opaquer Apprentice Relationship Specialty Start Date End Date Keaton Peñaloza DO [address] [place] [address] PCP - General Internal Medicine 06/24/24 documented as of this encounter
--- OUTSIDE RECORDS SUMMARY | 2024-12-31 13:11 | XMS_ITS | Encounter Summary ---
Author Organization [employer] s tem Address [facility][id number] [address] [place] [address] Care Team Providers Care Director Trial Name Role Phone Keaton Peñaloza DO Primary Care Provider [phone] Encounter Details Date Type Department Care Team (Late st Contact Info) Description 11/05/2024 Orders Only [facility] Internal Medicine - Family Medicine [address] [place] [address] Keaton Peñaloza DO [address] [place] [address] Social History Tobacco Use Types Packs/Day Years Used Date Smoking Tobacco: Former Cigarettes Q uit: 1976 Smokeless Tobacco: Never Comments:smoked for 1 year w hen was age 18 Alcohol Use Standard Drinks/Week Comments Yes 1 (1 standard drink = 0.6 oz pur e alcohol) socially [employer] Utilities Answer Date Recorded In the past 12 months has [employer], gas, oil, or water [employer] threatened to shut off services in your [...] How often do you attend chur or advent services? More than 4 times per year [...] Answer Date Recorded Total Score 0 11/05/2024 [facility] - Occupational Stress Questionnaire Answer [...] Recorded Do you need help finding a [facility] career center and/or a training program? [...] Internal Medicine - Family Medicine [address] [place] [address] Keaton Peñaloza DO [address] [place] [address] documented as of this encounter Goals Goal [...] as of this encounter Care Teams Director Trial Relationship Specialty Start Date End Date Keaton Peñaloza DO [address] [place] [address] PCP - General Internal Medicine 06/24/24 documented as of this encounter
--- OUTSIDE RECORDS SUMMARY | 2024-12-31 13:11 | XMS_ITS | Encounter Summary ---
Author Organization [id number] Address [facility] [place] [place][id number] [address] [place] [address] Care Team Providers Care Upset Welding Machine Operator Name Role Phone Keaton Peñaloza DO Primary Care Provider [phone] Encounter Details Date Type Department Care Team (Late Contact Info) Description 01/23/2023 Orders Only [facility] Internal Medicine - Family Medicine [address] [place] [address] Keaton Peñaloza DO [address] [place] [address] Mixed hyperlipidemia (Primary Dx); Type 2 diabetes mellitus without complication, with long-term current use of insulin ([facility]) Social History Tobacco Use Types Packs/Day Years [...] Internal Medicine - Family Medicine [address] [place] [address] Keaton Peñaloza DO [address] [place] [address] documented as of this encounter Visit Diagnoses Diagnosis Mixed hyperlipidemia- Primary Type 2 diabetes mellitus without complication, with long-term current use of insulin ([facility]) documented in this encounter Additional Health Concerns [...] documented as of this encounter Care Teams Upset Welding Machine Operator Relationship Specialty Start Date End Date Keaton Peñaloza DO [address] [place] [address] PCP - General Internal Medicine 06/24/24 documented as of this encounter
--- OUTSIDE RECORDS SUMMARY | 2024-12-31 13:11 | XMS_ITS | Encounter Summary ---
Author Organization [employer] Sys tem Address [facility] [id number] [address] [place] [address] Care Team Providers Care Product Safety And Standards Engineer Name Role Phone JhKeaton DO Primary Care Provider [phone] Encounter Details Date Type Department Care Team (Late st Contact Info) Description 06/13/2023 Telephone [facility] Internal Medicine - Family Medicine [address] [place] [address] Kassi Rosado CMA Social History [...] How often do you attend chur or uatsdin services? More than 4 times per year [...] Date Recorded Total Score 0 06/12/2023 [facility] of Occupat ional Health [...] Recorded Do you need help finding a [facility] career center and/or a training [...] Medicine - Family Medicine [address] [place] [address] Keaton Peñaloza DO [address] [place] [address] documented as of this encounter Visit Diagnoses [...] as of this encounter Care Teams Product Safety And Standards Engineer Relationship Specialty Start Date End Date Keaton Peñaloza DO [address] [place] [address] PCP - General Internal Medicine 06/24/24 documented as of this encounter
--- OUTSIDE RECORDS SUMMARY | 2024-12-31 13:11 | XMS_ITS | Encounter Summary ---
Author Organization [employer] Sys [employer] Address [facility] [id number] [address] [place] [address] Care Team Providers Care Air Defense Artillery Senior Sergeant Name Role Phone Jh Keaton Joy BUNN Primary Care Provider [phone] Reason for Visit * Reason Onset Date Comments Care Navigation 05/11/2023 Encounter Details Date Type Department Care Team (Late st Contact Info) Description 05/11/2023 Telephone [facility] Internal Medicine - Family Medicine [address] [place] [address] Linda Ulloa, CIPRIANO Care Navigation Social History [...] often do you attend chur ch or tenriism services? More than 4 times per year 02/27/2023 Do you belong to any clubs o r organizations such as restorationism groups, unions, fraternal or athletic groups, or [...] Answer Date Recorded Total Score 4 05/09/2023 [facility] of Occupat ional Health - Occupational [...] Recorded Do you need help finding a [facility] career center and/or a training [...] Also waiting to verify day of colonoscopy. Administrative Appeals Tribunal Member did review with patient that through her [employer] insurance, she is eligible for [address] trips a year to non-emergent doctor visits. This can also be used for food resources (goingto food bank, food pantry and grocery store for curb side scrap picker) They would also need at least 2 days advanced notice. Patient would need to to call [employer] to set up transportation appt. Pt would be able to take 1 administrative underwriter with her, as long as administrative underwriter was 18 yo or older. Also reviewed with patient TRIPS program servicing [facility], different zones in [facility]. Patient would need to call [phone] at least 24 hours in advance. Sometimes they are able to accommodate same day, depending on ride volume. They also do have rider assistance upon request. CN introduced herself, explained role of child care supervisor, TCM services available, and ACN will be [...] - Family Medicine [address] [place] [address] Keaton Peñaloza DO [address] [place] [address] documented as of this encounter Visit Diagnoses [...] documented as of this encounter Care Teams Air Defense Artillery Senior Sergeant Relationship Specialty Start Date End Date Keaton ePñaloza DO [address] [facility] [place] [address] PCP - General Internal Medicine 06/24/24 documented as of this encounter
--- OUTSIDE RECORDS SUMMARY | 2024-12-31 13:11 | XMS_ITS | Encounter Summary ---
Author Organization [employer] Sys tem Address [facility] [id number] [address] [place] [address] Care Team Providers Care Refuge Worker Name Role Phone JhKeaton DO Primary Care Provider [phone] Encounter Details Date Type Department Care Team (Late st Contact Info) Description 11/24/2024 Telephone [facility] Internal Medicine - Family Medicine [address] [place] [address] Yolanda Roth CMA Social History Tobacco Use Types Packs/Day Years Used Date Smoking Tobacco: Former Cigarettes Q uit: 1976 Smokeless Tobacco: Never Comments:smoked for 1 year w hen was age 18 Alcohol Use Standard Drinks/Week Comments Yes 1 (1 standard drink = 0.6 oz pur e alcohol) socially [employer] Utilities Answer Date Recorded In the past [...] Answer Date Recorded Total Score 0 11/05/2024 [facility] of Occupat ional Health - Occupational Stress [...] Internal Medicine - Family Medicine [address] [place] [address] Keaton Peñaloza, DO [address] [place] [address] documented as of this encounter Goals Goal [...] documented as of this encounter Care Teams Refuge Worker Relationship Specialty Start Date End Date Keaton Peñaloza DO [address] [place] [address] PCP - General Internal Medicine 06/24/24 documented as of this encounter
--- OUTSIDE RECORDS SUMMARY | 2024-12-31 13:11 | XMS_ITS | Encounter Summary ---
Author Organization [employer] Sys tem Address [facility]-[id number] [address] [place] [address] Care Team Providers Care Molding And Trim Installer Name Role Phone Jh Keaton Joy BUNN Primary Care Provider [phone] Reason for Visit * Reason Onset Date Comments Care Navigation 05/10/2023 Encounter Details Date Type Department Care Team (Late st Contact Info) Description 05/10/2023 Telephone [facility] Internal Medicine - Family Medicine [address] [place] [address] Linda Ulloa, CIPRIANO Care Navigation Social History [...] any clubs o r organizations such as samaritan groups, unions, fraternal or athletic groups, or [...] Answer Date Recorded Total Score 4 05/09/2023 [facility] of Occupat ional [...] Recorded Do you need help finding a [facility] career center and/or a training [...] - Family Medicine [address] [place] [address] Keaton Peñaloza DO [address] [place] [address] documented as of this encounter Visit Diagnoses [...] documented as of this encounter Care Teams Molding And Trim Installer Relationship Specialty Start Date End Date Keaton Peñaloza DO [address] [place] [address] PCP - General Internal Medicine 06/24/24 documented as of this encounter
--- OUTSIDE RECORDS SUMMARY | 2024-12-31 13:11 | XMS_ITS | Encounter Summary ---
Author Organization [facility] Address [facility][id number] [address] 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 More than 4 times [...] Answer Date Recorded Total Score 0 06/12/2023 [facility] of Occupat ional Health - Occupational Stress [...] Internal Medicine - Family Medicine [address] [place] [address] Keaton Peñaloza DO [address] [place] [address] documented as of this encounter Visit Diagnoses Diagnosis Adenocarcinoma of rectum ([facility])- Primary documented in this encounter Additional Health Concerns Infection Onset Date Last Indicated Resolved Time Respiratory Rule-Out 11/02/2024 11/02/2024 025 12:18 PM EDT Assessment Noted Time PHQ-9 Depression Total Score: 0 06/12/19 24 12:28 PM EST A Body Mass Index follow-up plan has been documented for the patient 04/23/2019 8:40 AM EST documented as of this encounter Care Teams Experimental Flight Test Mechanic Relationship Specialty Start Date End Date Keaton Peñaloza DO [address] [place] [address] PCP - General Internal Medicine 06/24/24 documented as of this encounter
--- OUTSIDE RECORDS SUMMARY | 2024-12-31 13:11 | XMS_ITS | Encounter Summary ---
Author Organization [facility] Address [facility][id number] [address] [place] [address] Care Team Providers Care Control Clerk Name Role Phone Keaton Peñaloza DO Primary Care Provider [phone] Encounter Details Date Type Department Care Team (Late st Contact Info) Description 03/19/2023 Orders Only [facility] Internal Medicine - Family Medicine [address] [place] [address] Keaton Peñaloza DO [address] [place] [address] Type 2 diabetes mellitus with microalbuminuria, with long-term current use of insulin ([facility]) Social History Tobacco Use Types Packs/Day Years [...] Answer Date Recorded Total Score 2 02/27/2023 [facility] of Occupat ional Health [...] Recorded Do you need help finding a [facility] career center and/or a training [...] Internal Medicine - Family Medicine [address] [place] [address] Keaton Peñaloza DO [address] [place] [address] documented as of this encounter Visit Diagnoses Diagnosis Type 2 diabetes mellitus with microalbuminuria, with long-term current use of insulin ([facility]) documented in this encounter Additional Health Concerns [...] documented as of this encounter Care Teams Control Clerk Relationship Specialty Start Date End Date Keaton Peñaloza DO [address] [place] [address] PCP - General Internal Medicine 06/24/24 documented as of this encounter
--- OUTSIDE RECORDS SUMMARY | 2024-12-31 13:11 | XMS_ITS | Encounter Summary ---
Author Organization [employer] Sys [employer] Address [facility] [place]-[id number] [address] [place] [address] Care Team Providers Care Superintendent Local Name Role Phone JhKeaton DO Primary Care Provider [phone] Encounter Details Date Type Department Care Team (Late st Contact Info) Description 05/11/2023 Telephone [facility] Internal Medicine - Family Medicine [address] [place] [address] Yolanda Roth CMA Social History [...] How often do you attend chur or methodist services? More than 4 times [...] Answer Date Recorded Total Score 4 05/09/2023 [facility] of Occupat ional Health - [...] Recorded Do you need help finding a [facility] career center and/or a training [...] Miscellaneous Notes * Telephone Encounter - Yolanda oRth CMA - 05/11/2023 12:54 PM EST I [...] Internal Medicine - Family Medicine [address] [place] [address] Keaton Peñaloza DO [address] [place] [address] documented as of this encounter Visit Diagnoses [...] documented as of this encounter Care Teams Superintendent Local Relationship Specialty Start Date End Date Keaton Peñaloza DO [address] [place] [address] PCP - General Internal Medicine 06/24/24 documented as of this encounter
--- OUTSIDE RECORDS SUMMARY | 2024-12-31 13:11 | XMS_ITS | Encounter Summary ---
Author Organization [employer] Sys tem Address [facility] [id number] [address] [place] [address] Care Team Providers Care Pawn Shop Keeper Name Role Phone JhKeaton DO Primary Care Provider [phone] Encounter Details Date Type Department Care Team (Late st Contact Info) Description 06/14/2023 Telephone [facility] Internal Medicine - Family Medicine [address] [place] [address] Kassi Rosado CMA Social History [...] How often do you attend chur or worship services? More than 4 times per year [...] Recorded Total Score 0 06/12/2023 [facility] of Occupat ional Health [...] Recorded Do you need help finding a [facility] career center and/or a training [...] Internal Medicine - Family Medicine [address] [place] [address] Keaton Peñaloza DO [address] [place] [address] documented as of this encounter Visit Diagnoses [...] documented as of this encounter Care Teams Pawn Shop Keeper Relationship Specialty Start Date End Date Keaton Peñaloza DO [address] [place] [address] PCP - General Internal Medicine 06/24/24 documented as of this encounter
--- OUTSIDE RECORDS SUMMARY | 2024-12-31 13:11 | XMS_ITS | Encounter Summary ---
Author Organization [employer] Sys [employer] Address [facility] [place]-[id number] [address] [place] [address] Care Team Providers Care Pulp Drier Name Role Phone JhKeaton DO Primary Care Provider Encounter Details Date Type Department Care Team (Late st Contact Info) Description 11/06/2024 Telephone [facility] Internal Medicine - Family Medicine [address] [place] [address] Kassi Rosado CMA Social History Tobacco Use Types Packs/Day Years Used Date Smoking Tobacco: Former Cigarettes Q uit: 1976 Smokeless Tobacco: Never Comments:smoked for 1 year w hen was age 18 Alcohol Use Standard Drinks/Week Comments Yes 1 (1 standard drink = 0.6 oz pur e alcohol) socially [employer] Utilities Answer Date Recorded In the past [...] often do you attend chur ch or temple services? More than 4 times per year 10/30/2024 Do you belong to any clubs o r organizations such as yarsani groups, unions, fraternal or athletic groups, or [...] Answer Date Recorded Total Score 0 11/05/2024 [facility] of Occupat ional Health - [...] [facility] Internal Medicine - Family Medicine [address] [place] [address] Keaton Peñaloza DO [address] [facility] [place] [address] documented as of this encounter Goals Goal [...] documented as of this encounter Care Teams Pulp Drier Relationship Specialty Start Date End Date Keaton Peñaloza DO [address] [place] [address] PCP - General Internal Medicine 06/24/24 documented as of this encounter
--- OUTSIDE RECORDS SUMMARY | 2024-12-31 13:11 | XMS_ITS | Encounter Summary ---
Author Organization [facility] Address [facility][id number] [address] [place] [address] Care Team Providers Care Supervisor Natural Gas Plant Name Role Phone Keaton Peñaloza DO Primary Care Provider [phone] Encounter Details Date Type Department Care Team (Late st Contact Info) Description 05/11/2023 Orders Only [facility] Internal Medicine - Family Medicine [address] [place] [address] Keaton Peñaloza DO [address] [place] [address] Rectal bleeding (Primary Dx) Social History Tobacco [...] often do you attend chur ch or zoroastrianism services? More than 4 times per year [...] Answer Date Recorded Total Score 4 05/09/2023 [facility] of Occupat ional Health - [...] Internal Medicine - Family Medicine [address] [place] [address] Keaton Peñaloza DO [address] [place] [address] documented as of this encounter Visit Diagnoses [...] as of this encounter Care Teams Supervisor Natural Gas Plant Relationship Specialty Start Date End Date Keaton Peñaloza DO [address] [place] [address] PCP - General Internal Medicine 06/24/24 documented as of this encounter
--- OUTSIDE RECORDS SUMMARY | 2024-12-31 13:24 | XMS_ITS | CCD ---
Author Organization [facility] CliniSymd Care Team Providers Care Eyeglass Frames Inspector Name Role Phone ZANE, DR BLAISE [place] Consulting Unavailable HOUSE, DR YBARRA Primary Care Unavailable KWAN, HELENA Attending Unavailable KWAN, HELENA Admitting Unavailable KWAN, HELENA Consulting Unavailable HOUSE, DR YBARRA Admitting Unavailable HOUSE, DR YBARRA Primary Care Unavailable MYSTIC, DR YBARRA Consulting Unavailable MYSTIC, DR YBARRA Attending Unavailable SYEBER, DR BLAISE Montana Consulting Unavailable MYSTIC, DR YBARRA Admitting Unavailable MYSTIC, DR YBARRA Primary Care Unavailable MYSTIC, DR YBARRA Consulting Unavailable MYSTIC, DR YBARRA Attending Unavailable HOUSE, DR YBARRA Admitting Unavailable HOUSE, DR YBARRA Primary Care Unavailable HOUSE, DR YBARRA Consulting Unavailable HOUSE, DR YBARRA Attending Unavailable KWAN, HELENA Consulting Unavailable HOUSE, DR YBARRA Primary Care Unavailable KWAN, HELENA Attending Unavailable KWAN, HELENA Admitting Unavailable CHASITY SANTOYO Consulting Unavailable DO Noel Kam Attending Provider [phone] DO Tate Mancera Primary Care Provider DO Tate Mancera Primary Care Provider PEDRO Eastman Attending Provider [phone] Briseyda Eastman Unavailable Surya Sr., Tate BUNN Nicholas Primary Care Prov ider Yanick Cesar Unavailable Keaton Hu Primary Care Provider Pauline Richard Unavailable Unavailable Keaton Hu Primary Care Provider Kwan COTA, Little Gomez Unavailable Harry FLYNN, Arturo Unavailable [phone] Jessica Eubanks PA-C Unavailable Devin FLYNN, Blu Unavailable Arturo Mcdonald MD Unavailable YuhasDO Pugh Primary Care Provider MD Darian Ba Attending Provider Darian Ba Admitting Unavailable Darian Ba Attending Unavailable Yuhas, Keaton Primary Care Unavailable Yuhas DO, Keaton Primary Care Provider Darian Ba MD Attending Provider [phone] Yuhas DOKeaton Primary Care Provider YUHAS, KEATON L Referring Unavailable YUHAS, KEATON L Primary Care Unavailable YUHAS, KEATON L Referring Unavailable YUHAS, KEATON L Primary Care Unavailable YUHAS, KEATON L Referring Unavailable YUHAS, KEATON L Primary Care Unavailable YUHAS, KEATON L Referring Unavailable YUHAS, KEATON L Primary Care Unavailable YUHAS, KEATON L Referring Unavailable YUHAS, KEATON L Primary Care Unavailable Yuhas DO, Keaton L Primary Care Provider Yuhas DOKeaton Primary Care Provider Yuhas DO, Keaton Hamilton Primary Care Provider [phone] ARTURO MCDONALD Referring Unavailable YUHAS, KEATON ELDER Primary Care Unavailable JESSICA EUBANKS Referring Unavailable YUHAS, KEATON ELDER Primary Care Unavailable JESSICA EUBANKS Referring Unavailable YUHAS, KEATON ELDER Primary Care Unavailable EVANS ZURITA Referring Unavailable CARIDAD JIMENEZ Attending Unavailable YUHAS, KEATON ELDER Primary Care Unavailable Yuhas DO, Keaton L Primary Care Provider YUHAS, KEATON L Attending Unavailable YUHAS, KEATON L Referring Unavailable YUHAS, KEATON L Primary Care Unavailable YUHAS, KEATON L Attending Unavailable YUHAS, KEATON L Referring Unavailable YUHAS, KEATON L Primary Care Unavailable YUHAS, KEATON L Referring Unavailable YUHAS, KEATON L Primary Care Unavailable YUHAS, KEATON L Primary Care Unavailable ALEXIS COOK Attending Unavailable YUHAS, KEATON L Primary Care Unavailable ADAMA GONZALEZ Attending Unavailable YUHAS, KEATON L Primary Care Unavailable BLANCA BEAN Attending Unavailable [facility], [facility] Primary Care Unavailable CHERYL COOK Attending Unavailable [facility] Primary Care Unavailable ABHYANKAR, BLU Referring Unavailable ABHYANKAR, BLU Referring Unavailable ABHYANKAR, BLU Attending Unavailable [facility], KEATON ELDER Primary Care Unavailable EVANS ZURITA Attending Unavailable [facility], [facility] Primary Care Unavailable ABHYANKAR, BLU Referring Unavailable YUHAS, KEATON ELDER Primary Care Unavailable JESSICA EUBANKS Referring Unavailable [facility], [facility] Primary Care Unavailable MOHSEN CARRERA Attending Unavailable [facility], [facility] Primary Care Unavailable ABHYANKAR, BLU Referring Unavailable ABHYANKAR, BLU Attending Unavailable [facility], KEATON ELDER Primary Care Unavailable ABHYANKAR, BLU Referring Unavailable YUHAS, KEATON ELDER Primary Care Unavailable ABHYANKAR, BLU Referring Unavailable YUHAS, KEATON ELDER Primary Care Unavailable ABHYANKAR, BLU Referring Unavailable ABHYANKAR, BLU Attending Unavailable [facility], KEATON ELDER Primary Care Unavailable ABHYANKAR, BLU Referring Unavailable ABHYANKAR, BLU Attending Unavailable [facility], KEATON ELDER Primary Care Unavailable ABHYANKAR, BLU Attending Unavailable ABHYANKAR, BLU Referring Unavailable YUHAS, KEATON ELDER Primary Care Unavailable ABHYANKAR, BLU Referring Unavailable YUHAS, KEATON ELDER Primary Care Unavailable ABHYANKAR, BLU Attending Unavailable ABHYANKAR, BLU Referring Unavailable YUHAS, KEATON ELDER Primary Care Unavailable YUHAS, KEATON ELDER Primary Care Unavailable ABHYANKAR, BLU Referring Unavailable [facility], KEATON ELDER Primary Care Unavailable [facility], KEATON ELDER Primary Care Unavailable [facility], KEATON ELDER Primary Care Unavailable JESSICA EUBANKS Attending Unavailable [facility], [facility] Primary Care Unavailable ABHYANKAR, BLU Referring Unavailable YUHAS, KEATON ELDER Primary Care Unavailable ABHYANKAR, BLU Referring Unavailable YUHAS, KEATON ELDER Primary Care Unavailable ABHYANKAR, BLU Referring Unavailable YUHAS, KEATON ELDER Primary Care Unavailable MARGARETTE HERNANDEZ Unavailable ABHYANKAR, BLU Referring Unavailable YUHAS, KEATON ELDER Primary Care Unavailable KEATON HU Primary Care Unavailable KEATON HU Primary Care Unavailable BLU TELLEZ Attending Unavailable KEATON HU Primary Care Unavailable KEATON HU Primary Care Unavailable BLU TELLEZ Referring Unavailable Allergies Allergy Classification Reported Allergen(s) Allergy Type Date of Onset Reaction(s) Facility Opioid Agonists (14 sources) Codeine Drug Allergy 9 Other: See Comments, Vomiting [facility] (10 sources) Codeine; Translations: [CODEINE] Drug Allergy 4 nausea [facility] (20 sources) Codeine Drug Allergy 7 nausea, Other: See Comments [facility] (20 sources) traMADol; Translations: [TRAMADOL] Drug Allergy 9 Vomiting, Nausea [facility] (1 source) Codeine Drug Allergy 4 [facility] (1 source) traMADol Drug Allergy 4 [facility] Medications Current Medications Medication Drug Class(es) Dates Sig (Normalized) Sig (Original) acetaminophen 500 mg oral tablet (20 sources) Start: 03-25-2021 End: 06-21-2023 take 1 tablet by mouth every six hours as needed for pain and headache and fever acetaminophen (TYLENOL) 500 mg tablet Take 1 tablet (500 mg total) by mouth every 6 (six) hours as needed for pain, headaches or fever. 30 tablet 0 03/25/2021 06/21/2023 Discontinued Acetaminophen 50 0 mg cap Take 500 mg by mouth as needed. Active take 1 tablet by faustino every four hours Tylenol 325 MG 1 tablet as needed Orally every 4 hrs Active Comment on above: Take 500 mg by mouth as needed. acetaminophen 325 mg / butalbital 50 mg / caffeine 40 mg oral tablet (5 sources) Barbiturate, Central Nervous System Stimulant, Methylxanthine Start: 025 take 1 tablet by mouth every four hours as needed for headache butalbital-acetamin ophen-caff (FIORICET, ESGIC) 50-325-40 mg per tablet Take 1 tablet by mouth every 4 (four) hours as needed for headaches. 10 tablet 11/02/2024 Active [id number] 200 actuat albuterol 0.09 mg/actuat metered dose inhaler (5 sources) beta2-Adrenergic Agonist Start: take 2 puff(s) by inhalation every four hours as needed for wheezing albuterol (PROVENTIL HFA;VENTOLIN HFA) 90 mcg/actuation inhaler Indications: Reactive airway disease with acute exacerbation, unspecified asthma severity, unspecified whether persistent Inhale 2 puffs every 4 (four) hours as needed for wheezing. 18 g 11/02/2024 Active amLODIPine 10 mg oral tablet (20 sources) Dihydropyridine Calcium Channel Enio Start: End: take 1 tablet by mouth once daily in the evening amLODIPine (NORVASC) 10 mg tablet Indications: Essential hypertension Take 1 tablet by mouth every evening 30 tablet 5 11/02/2024 Active amLODIPine Besyl ate Active Comment on above: Take 10 mg by mouth once daily. amoxicillin 875 mg / clavulanate 125 mg oral tablet (12 sources) Penicillin-class Antibacterial Start: End: take 1 tablet by mouth twice daily amoxicillin-clavul anate potassium (AUGMENTIN) 875-125 mg per tablet Take 1 tablet by mouth two times a day. 06/25/2024 07/01/2024 Active Start: 06-24-2024 End: 07-01-2024 take 1 tablet by mouth every twelve hours amoxicillin-pot clavulanate (AUGMENTIN) 875-125 mg per tablet Take 1 tablet by mouth every 12 (twelve) hours for 7 days. 14 tablet 06/24/2024 07/01/2024 Active Start: 09-14-2023 End: 09-20-2023 take 1 tablet by mouth twice daily amoxicillin-clavulanate potassium (AUGMENTIN) 875-125 mg per tablet Take 1 tablet by mouth two times a day. 0 09/14/2023 09/20/2023 Start: 09-14-2023 End: 09-21-2023 take 1 tablet by mouth every twelve hours amoxicillin-pot clavulanate (AUGMENTIN) 875-125 mg per tablet Take 1 tablet by mouth every 12 (twelve) hours for 7 days. 14 tablet 09/14/2023 09/21/2023 Active aspirin 81 mg delayed release oral tablet (20 sources) Platelet Aggregation Inhibitor, Nonsteroidal Anti-inflammatory Drug Start: 04-04-2024 End: 08-07-2024 take 1 tablet by mouth once daily aspirin 81 mg Indications: Type 2 diabetes mellitus without complication, with long-term current use of insulin ([facility]) Take 1 tablet by mouth every day 90 tablet 3 08/07/2024 Active Start: 07-26-2023 take 81 mg by mouth every other day Aspirin Active 81 MG PO .COMPLEX July 26, 2023 1:00am 81 mg orally every other day; Start: 06-29-2023 End: 04-04-2024 take 1 tablet by mouth every other day aspirin, enteric coated (ASPIRIN, ENTERIC COATED) 81 mg EC tablet Take 81 mg by mouth every other day. 06/29/2023 Active Start: 06-29-2023 aspirin, enter ic coated (ASPIRIN, ENTERIC COATED) 81 mg EC tablet Take 81 mg by mouth every 48 hours. 0 06/29/2023 Active Start: 10-19-2022 End: 06-26-2023 take 1 tablet by mouth every other day aspirin 81 mg Take 1 tablet (81 mg total) by mouth every other day. 0 10/19/2022 06/26/2023 Discontinued (Stop Taking at Discharge) Baby Aspirin Corky es QOD Active Comment on above: Take 81 mg by mouth every 48 hours. Take 81 mg by mouth every other day. Aspirin 81 mg tablet,delayed release (DR/EC) (1 source) Start: take 1 tablet by mouth every other day Aspirin 81 mg tablet,delayed release (DR/EC) Active 81 MG PO .COMPLEX July 26, 2023 12:00am 81 mg orally every other day; atorvastatin 40 mg oral tablet (20 sources) HMG-CoA Reductase Inhibitor Start: 4 End: 5 take 1 tablet by mouth once daily atorvastatin (LIPITOR) 40 mg tablet Indications: Mixed hyperlipidemia Take 1 tablet by mouth every day 90 tablet 1 08/07/2024 Active Start: 07-27-2023 take 1 tablet by faustino th once daily in the morning atorvastatin (LIPITOR) 40 mg tablet Indications: Mixed hyperlipidemia take 1 tablet by mouth every morning 90 tablet 1 07/27/2023 Active Start: 07-26-2023 take 1 tablet by faustino th once daily Atorvastatin 20 mg tablet Active 20 MG PO Daily July 26, 2023 12:00am Start: 02-14-2023 End: 06-21-2023 take 1 tablet by mouth in the morning atorvastatin (LIPITOR) 40 mg tablet Indications: Mixed hyperlipidemia Take 1 tablet (40 mg total) by mouth in the morning. 90 tablet 1 02/14/2023 06/21/2023 Discontinued busPIRone hydrochloride 10 mg oral tablet (20 sources) Start: 12-24-2022 End: 11-02-2024 take 1 tablet by mouth once daily busPIRone (BUSPAR) 10 mg tablet Indications: Panic attack as reaction to stress Take 1 tablet by mouth every day 30 tablet 5 11/02/2024 Active Start: 12-24-2022 End: 04-04-2024 take 1 tablet by mouth twice daily busPIRone (BUSPAR) 10 mg tablet take 1 tablet by mouth twice a day if needed 12/24/2022 04/04/2024 Discontinued busPIRone HCl Ac tive Comment on above: Take by mouth. cannabidiol, CBD, (CANNABIDIOL ORAL) (20 sources) take 10 mg by mouth once daily at bedtime cannabidiol, CBD, (CANNABIDIOL ORAL) Take 10 mg by mouth daily at bedtime. Active take 10 mg by mouth once daily at bedtime cannabidiol, CBD, (CANNABIDIOL ORAL) Corky e 10 mg by mouth daily at bedtime. 0 Active capecitabine 500 mg oral tablet (20 sources) Nucleoside Metabolic Inhibitor Start: 01-30-2024 End: 07-14-2024 capecitabine (XELODA) 500 mg tablet Take 5 tablets (2,500 mg) by mouth two times a day. 14 days on 7 days off 140 tablet 5 06/23/2024 8:59 AM EST 03/04/2024 Active Start: 09-11-2023 End: 01-30-2024 take 3 tablets by mouth twice daily at mealtime capecitabine (XELODA) 500 mg tablet Take 3 tablets (1,500 mg) by mouth two times a day with food, on days of radiation only (MON-FRI only). 180 tablet 09/11/2023 01/30/2024 Discontinued clindamycin 300 mg oral capsule (5 sources) Lincosamide Antibacterial Start: 07-08-2024 End: 07-15-2024 clindamycin (CLEOCIN) 300 mg capsule Take 300 mg by mouth. 07/08/2024 07/15/2024 Active clobetasol propionate 0.5 mg/ml topical cream (20 sources) Corticosteroid Start: 08-07-2023 clobetasoL (TEMOVATE) 0.05 % cream Indications: Lichen sclerosus Apply 1 Application topically in the morning and 1 Application before bedtime. 30 g 08/07/2023 Active Echinacea 380 MG (1 source) take 2 capsules by mouth once daily Echinacea 380 MG 2 Capsule Orally Once Daily Active ferrous sulfate 325 mg oral tablet (20 sources) Start: 04-04-2024 End: 11-02-2024 take 1 tablet by mouth once daily ferrous sulfate (FeroSuL) 325 (65 FE) MG tablet Indications: Iron deficiency Take 1 tablet by mouth every day 30 tablet 5 11/02/2024 Active Start: 09-17-2023 End: 04-04-2024 take 1 tablet by mouth every other day FeroSuL 325 mg (65 mg iron) tablet Indications: Iron deficiency take 1 tablet by mouth every other day 45 tablet 12/17/2023 04/04/2024 Discontinued Start: 07-26-2023 take 1 tablet by faustino once daily Ferrous Sulfate (Ferosul) 325 mg (65 mg iron) tablet Active 325 MG PO Daily July 26, 2023 12:00am Start: 06-27-2023 ferrous sulfat e 325 mg (65 mg iron) tablet Take 325 mg by mouth every 48 hours. 06/27/2023 Active Start: 06-27-2023 End: 09-17-2023 take 1 tablet by mouth every other day ferrous sulfate (FeroSuL) 325 (65 FE) mg tablet Indications: Iron deficiency Take 1 tablet (325 mg total) by mouth every other day. 45 tablet 06/27/2023 09/17/2023 Discontinued Start: 10-04-2022 End: 06-27-2023 take 1 tablet by mouth in the morning FeroSuL 325 mg (65 mg iron) tablet Take 1 tablet (325 mg total) by mouth in the morning. 0 10/04/2022 06/27/2023 Discontinued Comment on above: Take 325 mg by mouth every 48 hours. 3 ml insulin glargine 100 unt/ml pen injector (20 sources) Insulin Analog Start: 04-04-2024 End: 12-02-2024 insulin glargine (LANTUS SOLOSTAR U-100 INSULIN) 100 unit/mL (3 mL) insulin pen Indications: Type 2 diabetes mellitus without complication, with long-term current use of insulin ([facility]) Inject 60 Units under the skin nightly. 45 mL 1 12/02/2024 Active Start: 09-14-2023 End: 12-27-2023 LANTUS SOLOSTAR U-100 INSULI N 100 unit/mL (3 mL) insulin pen Indications: Type 2 diabetes mellitus without complication, with long-term current use of insulin ([facility]) inject 60 units UNDER THE SKIN nightly 54 mL 12/05/2023 12/27/2023 Discontinued Start: 07-26-2023 End: 04-04-2024 insulin glargine (LANTUS JOSS OSTAR U-100 INSULIN) 100 unit/mL (3 mL) insulin pen Indications: Type 2 diabetes mellitus without complication, with long-term current use of insulin ([facility]) Inject 60 Units under the skin in the morning. 12/27/2023 04/04/2024 Discontinued Start: 07-26-2023 Insulin Glargi ne (Lantus Solostar U-100 Insulin) 100 unit/mL (3 mL) insulin pen Active UNIT SUBCUT July 26, 2023 1:00am Start: 06-03-2023 End: 09-14-2023 LANTUS SOLOSTAR U-100 INSULI N 100 unit/mL (3 mL) insulin pen Indications: Type 2 diabetes mellitus without complication, with long-term current use of insulin ([facility]) inject 70 units subcutaneously every evening 36 mL 1 06/03/2023 09/14/2023 Discontinued Start: 01-29-2023 End: 06-03-2023 inject 70 [IU] by subcutaneous injection once daily insulin glargine (LANTUS, BASAGLAR) 100 unit/mL (3 mL) insulin pen Indications: Type 2 diabetes mellitus without complication, with long-term current use of insulin ([facility]) Inject 70 Units under the skin nightly. 36 mL 1 01/29/2023 06/03/2023 Discontinued insulin glargine (LANTUS SOLOSTAR U-100 INSULIN) 100 unit/mL (3 mL) Inject 80 Units subcutaneously daily at bedtime. Active Comment on above: Inject subcutaneousl y. insulin isophane / insulin, regular, human (1 source) Insulin NovoLIN N Active 3 ml insulin lispro 100 unt/ ml pen injector (20 sources) Insulin Analog insulin lispro ( HumaLOG) 100 unit/mL insulin pen Inject under the skin. Active insulin lispro ( HUMALOG KWIKPEN INSULIN) 100 unit/mL inpn Inject subcutaneously as directed. Active Comment on above: Inject subcutaneousl y as directed. irbesartan 300 mg oral tablet (20 sources) Angiotensin 2 Receptor Enio Start: End: take 1 tablet by mouth once daily irbesartan (AVAPRO) 300 mg tablet Indications: Essential hypertension Take 1 tablet by mouth every day 90 tablet 1 08/07/2024 Active take 1 tablet by faustino th once daily at bedtime irbesartan (AVAPRO) 75 mg tablet Take 75 mg by mouth daily at bedtime. Active Irbesartan Activ e Comment on above: Take 75 mg by mouth daily at bedtime. meclizine hydrochloride 25 mg oral tablet (20 sources) Antiemetic Start: 12-10-19 take 1 tablet by mouth once daily as needed for dizziness meclizine (ANTIVERT) 25 mg tablet Indications: Benign paroxysmal positional vertigo, unspecified laterality Take 1 tablet by mouth every day as needed for dizziness 30 tablet 2 12/09/2024 Active Start: 10-20-2018 End: 12-09-2024 take 1 tablet by mouth once daily as needed for dizziness meclizine (ANTIVERT) 25 mg tablet Indications: Benign paroxysmal positional vertigo, unspecified laterality Take 1 tablet (25 mg total) by mouth daily as needed for dizziness. 30 tablet 11/07/2024 12/09/2024 Discontinued Meclizine HCl pr n Active Comment on above: Take by mouth at bed time as needed. 24 hr metFORMIN hydrochloride 1000 mg / SITagliptin 50 mg extended release oral tablet (20 sources) Biguanide, Dipeptidyl Peptidase 4 Inhibitor Start: 09-07-2023 take 1 tablet by mouth once JANUMET XR 50-1,000 mg TM24 Take 1 tablet by mouth every afternoon. 09/07/2023 Active End: 09-11-2023 take 1 tablet by mouth twice daily at mealtime sitaGLIPtin-metFORMIN (JANUMET) 50-1,000 mg per tablet Take 1 tablet by mouth two times a day with meals. 09/11/2023 Discontinued (Discontinued by Patient) Comment on above: Take 1 tablet by faustino th twice daily with meals. Take 1 tablet by faustino th two times a day with meals. 5 ml metoprolol tartrate 1 mg/ml injection (20 sources) beta-Adrenergic Enio Start: 07-29-2024 5 mg, INTRAVENOUS, ONCE, 1 dose, On Sun07/29/24 at 1430, Administer IV push over 2-5 minutes., Preprocedure Start: 08-01-2023 End: 10-30-2024 take 1 tablet by mouth twice daily metoprolol tartrate, short acting, (LOPRESSOR) 50 mg tablet Take 50 mg by mouth two times a day. 2023 Active metroNIDAZOLE 500 mg oral tablet (14 sources) Nitroimidazole Antimicrobial Start: 07-21-2024 take 1 tablet by mouth in the evening metroNIDAZOLE (FLAGYL) 500 mg tablet Indications: Rectal cancer (HCC) Take 1 tablet by mouth at 6 pm, another at 7 pm and again at 11 pm, the evening prior to surgery 3 tablet 07/28/2024 12:45 PM EDT 07/21/2024 Active mirtazapine 7.5 mg oral tablet (20 sources) Start: 08-20-2023 End: 11-05-2024 take 1 tablet by mouth once daily Mirtazapine (REMERON) 7.5 mg tablet Take 7.5 mg by mouth once daily. 09/12/2023 Active neomycin sulfate 500 mg oral tablet (14 sources) Aminoglycoside Antibacterial Start: 07-21-2024 take 2 tablets by mouth in the evening neomycin 500 mg tablet Indications: Rectal cancer (HCC) Take 2 tablets by mouth at 6 pm, again at 7 pm and at 11 pm the evening prior to surgery 6 tablet 07/28/2024 12:45 PM EDT 07/21/2024 Active nystatin 100 unt/mg topical ointment (20 sources) Polyene Antifungal Start: 05-09-2023 nystatin (MYCOSTATIN) ointment Apply 1 Application to affected area. 05/09/2023 Active Start: 05-09-2023 End: 07-17-2023 nystatin (MYCOSTATIN) ointme nt Indications: Candidiasis of genitalia Apply 1 Application topically in the morning and 1 Application before bedtime. 30 g 0 05/09/2023 07/17/2023 Discontinued Comment on above: Apply 1 Application to affected area. omeprazole 40 mg delayed release oral capsule (9 sources) Proton Pump Inhibitor Start: End: take 1 capsule by mouth in the morning omeprazole (PriLOSEC) 40 mg capsule Take 1 capsule (40 mg total) by mouth in the morning. 30 capsule 1 07/10/2022 06/21/2023 Discontinued ondansetron 8 mg oral tablet (20 sources) Serotonin-3 Receptor Antagonist Start: End: take 1 tablet by mouth every eight hours as needed for nausea ondansetron (ZOFRAN) 8 mg tablet Indications: Rectal cancer (HCC) Take 1 tablet by mouth every 8 hours as needed for nausea/vomiting. 90 tablet 2 05/16/2024 2:21 PM EST 05/16/2024 Active ozempic (0.25 or 0.5 mg/dose) 2 mg/3ml solution pen-injector (1 source) inject 0.5 mg by subcutaneous injection every week Ozempic (0.25 or 0.5 MG/DOSE) 2 MG/3ML 0.5mg Subcutaneous once a week Active OZEMPIC 1 mg/dose (4 mg/3 mL) pen injector (11 sources) Start: End: inject 1 mg by subcutaneous injection every week OZEMPIC 1 mg/dose (4 mg/3 mL) pen injector Indications: Type 2 diabetes mellitus without complication, without long-term current use of insulin ([facility] inject 1 milligram subcutaneously every week 3 mL 2 10/17/2023 12/29/2023 Discontinued (Dose adjustment) Start: 10-17-2023 inject 1 mg by subcu taneous injection every week OZEMPIC 1 mg/dose (4 mg/3 mL) pen injector Indications: Type 2 diabetes mellitus without complication, without long-term current use of insulin ([facility]) inject 1 milligram subcutaneously every week 3 mL 2 10/17/2023 Active OZEMPIC 2 mg/dose (8 mg/3 mL) pen injector (3 sources) Start: 11-28-2024 inject 2 mg by subcutaneous injection every week OZEMPIC 2 mg/dose (8 mg/3 mL) pen injector Indications: Type 2 diabetes mellitus with microalbuminuria, with long-term current use of insulin ([facility]) Dial and inject 2 mg under the skin weekly 9 mL 11 11/28/2024 Active peg 3350-sod sulf,upbq-jrx-lex 178.7-7.3-0.5 gram recon soln (1 source) Start: 06-20-2023 End: 06-21-2023 peg 3350-sod sulf,epto-gxs-ort 178.7-7.3-0.5 gram recon soln Take 1 kit by mouth in the morning for 1 dose. Please see instructional sheet given by Physicians office. 1 each 0 06/20/2023 06/21/2023 Active polyethylene glycol 3350 19354 mg powder for oral solution (20 sources) Osmotic Laxative Start: 10-28-2023 End: 12-27-2023 polyethylene glycol 3350 17 gram packet Take 17 g by mouth. 10/28/2023 Active potassium chloride 20 meq powder for oral solution (20 sources) Start: 12-24-2023 End: 12-29-2023 take 1 dose by mouth once daily in the morning KLOR-CON 20 mEq packet Indications: Hypokalemia due to excessive gastrointestinal loss of potassium take 1 packet by mouth every morning and 1 packet at bedtime 180 packet 12/24/2023 12/29/2023 Discontinued (Ineffective) Start: 11-30-2023 End: 12-24-2023 take 1 dose by mouth in the morning potassium chloride (KLOR-CON) 20 mEq packet Indications: Hypokalemia due to excessive gastrointestinal loss of potassium Take 1 packet (20 mEq total) by mouth in the morning and 1 packet (20 mEq total) before bedtime. 180 packet 11/30/2023 12/24/2023 Discontinued Start: 07-26-2023 End: 02-13-2024 Potassium Chloride Discontin ued MEQ PO July 26, 2023 1:00am February 13, 2024 11:29am Start: 07-26-2023 Potassium Chlo ride Active MEQ PO July 26, 2023 1:00am Start: 07-04-2023 End: 09-11-2023 take 1 tablet by mouth once daily potassium chloride ER (KLOR-CON) 20 mEq tablet Take 1 tablet by mouth once daily for 10 days. 10 tablet 07/13/2023 07/23/2023 Start: 06-12-2023 End: 06-21-2023 take 1 tablet by mouth in the morning potassium chloride (KLOR-CON M 20) 20 MEQ CR tablet Indications: Hypokalemia due to excessive gastrointestinal loss of potassium Take 1 tablet (20 mEq total) by mouth in the morning. 15 tablet 1 06/12/2023 06/21/2023 Discontinued Comment on above: Take 1 tablet by faustino th every morning. Take 1 tablet by faustino th once daily for 10 days. prochlorperazine 10 mg oral tablet (20 sources) Phenothiazine Start: 2023 End: 2024 take 1 tablet by mouth every six hours as needed prochlorperazine (COMPAZINE) 10 mg tablet Indications: Rectal cancer (HCC) Take 1 tablet by mouth every 6 hours as needed. 100 tablet 2 05/16/2024 2:21 PM EST 05/16/2024 Active Semaglutide (3 sources) Start: 2023 inject 1 mg by subcutaneous injection every week Semaglutide (Ozempic) 1 mg/dose (4 mg/3 mL) pen injector Active 1 MG SUBCUT every week July 26, 2023 12:00am Start: 07-26-2023 inject 1 mg by subcu taneous injection every week Semaglutide (Ozempic) 1 mg/dose (4 mg/3 mL) pen injector Active 1 MG SUBCUT every week July 26, 2023 1:00am Start: 07-26-2023 Semaglutide (O zempic) 1 mg/dose (4 mg/3 mL) pen injector Active MG SUBCUT July 26, 2023 1:00am 1 mg dose 1.5 ml semaglutide 1.34 mg/ml pen injector (20 sources) inject 1 mg by subcutaneous injection every week semaglutide (OZEMPIC) 1 mg/dose (2 mg/1.5 mL) pen Inject 1 mg subcutaneously one time a week. Active Semaglutide (Ozempic) 2 mg/dose (8 mg/3 mL) pen injector (1 source) Start: 2023 Semaglutide (Ozempic) 2 mg/dose (8 mg/3 mL) pen injector Active MG SUBCUT March 29, 2024 12:00am spironolactone 25 mg oral tablet (20 sources) Aldosterone Antagonist Start: 2023 take 2 tablets by mouth once daily in the morning spironolactone (ALDACTONE) 25 mg tablet Take 50 mg by mouth every morning. 08/02/2023 Active sulfamethoxazole 800 mg / trimethoprim 160 mg oral tablet (2 sources) Dihydrofolate Reductase Inhibitor Antibacterial, Sulfonamide Antimicrobial Start: 2023 End: 2024 take 1 tablet by mouth twice daily sulfamethoxazole-tri methoprim (BACTRIM DS) 800-160 mg per tablet Indications: Wound cellulitis Take 1 tablet by mouth two times a day for 5 days. 10 tablet 05/16/2024 05/21/2024 Active Completed/Discontinued Medications Medication Drug Class(es) Dates Sig (Normalized) Sig (Original) azithromycin 250 mg oral tablet (4 sources) Macrolide Antimicrobial Start: 07-26-2023 End: 09-11-2023 Azithromycin 250 mg tablet Discontinued 0 PO .COMPLEX July 26, 2023 12:00am September 11, 2023 9:31am For 250 mg dose pack: take 500 mg today (day 1), then 250 mg for 4 days (days 2-5) PO Start: 07-26-2023 End: 09-11-2023 Azithromycin Discontinued 0 PO .COMPLEX July 26, 2023 1:00am September 11, 2023 10:31am For 250 mg dose pack: take 500 mg today (day 1), then 250 mg for 4 days (days 2-5) PO Start: 05-21-2023 End: 05-25-2023 azithromycin (ZITHROMAX Z-PA K) 250 mg tablet Take 2 tablets the first day then 1 tablet every day for 4 days. 6 tablet 0 05/21/2023 05/25/2023 Active 1 ml dexamethasone phosphate 10 mg/ml injection (2 sources) Corticosteroid Start: 06-04-2024 End: 06-04-2024 10 mg, INTRAVENOUS, ONCE, 1 dose, On Sun06/04/24 at 1400, Administer over 5 minutes. Start: 03-20-2024 End: 03-20-2024 10 mg, INTRAVENOUS, ONCE, 1 dose, On Sun03/20/24 at 1400, Administer over 5 minutes. dexAMETHasone 10 mg in NaCl 0.9% 50 mL (DECADRON) (1 source) Start: 01-31-2024 End: 01-31-2024 10 mg, INTRAVENOUS, ONCE, 1 dose, On Sun01/31/24 at 1400, Refrigerate. dextromethorphan hydrobromide 1.5 mg/ml / pyrilamine maleate 1.5 mg/ml oral solution (3 sources) Uncompetitive H-xeozxa-V-aspartat e Receptor Antagonist, Sigma-1 Agonist Start: 07-26-2023 End: 09-11-2023 take 1 mL by mouth every eight hours Pyrilamine-Dextro methorphan ([place] Dm) 7.5-7.5 mg/5 mL liquid Discontinued 10 ML PO Every 8 hours 150 5 July 26, 2023 12:00am September 11, 2023 9:31am enteric contrast (will be provided with radiology test) (20 sources) Start: 11-17-2024 End: 11-18-2024 enteric contrast (will be provided with radiology test) Indications: Malignant neoplasm of rectum (HCC) MRI RECTUM WO/W. Administer, As Directed One Time Only, via Oral, Rectal, both Oral and Rectal, Enteric Tube, Stoma or Indwelling Catheter, Enteric Contrast as designated per enteric contrast guidelines 1 each 11/17/2024 11/18/2024 Start: 08-14-2024 End: 08-15-2024 enteric contrast (will be pr ovided with radiology test) Indications: Malignant neoplasm of rectum (HCC) , Type 2 diabetes mellitus with other specified complication, with long-term current use of insulin (HCC) , Other depression , Wound cellulitis , Rectal cancer (HCC) , Stage 3a chronic kidney disease (HCC) MRI RECTUM WO/W. Administer, As Directed One Time Only, via Oral, Rectal, both Oral and Rectal, Enteric Tube, Stoma or Indwelling Catheter, Enteric Contrast as designated per enteric contrast guidelines 1 Each 08/14/2024 08/15/2024 Active Start: 06-04-2024 End: 06-05-2024 enteric contrast (will be pr ovided with radiology test) MRI RECTUM WO/W. Administer, As Directed One Time Only, via Oral, Rectal, both Oral and Rectal, Enteric Tube, Stoma or Indwelling Catheter, Enteric Contrast as designated per enteric contrast guidelines 1 Each 06/04/2024 06/05/2024 Start: 06-04-2024 End: 06-05-2024 enteric contrast (will be pr ovided with radiology test) For CT CHESTABD/PEL W IVCON Routine order Administer, As Directed One Time Only, via Oral, Rectal, both Oral and Rectal, Enteric Tube, Stoma or Indwelling Catheter, Enteric Contrast as designated per enteric contrast guidelines 1 Each 06/04/2024 06/05/2024 Start: 06-04-2024 End: 06-05-2024 enteric contrast (will be pr ovided with radiology test) MRI RECTUM WO/W. Administer, As Directed One Time Only, via Oral, Rectal, both Oral and Rectal, Enteric Tube, Stoma or Indwelling Catheter, Enteric Contrast as designated per enteric contrast guidelines 1 Each 06/04/2024 06/05/2024 Active Start: 06-04-2024 End: 06-05-2024 enteric contrast (will be pr ovided with radiology test) For CT CHESTABD/PEL W IVCON Routine order Administer, As Directed One Time Only, via Oral, Rectal, both Oral and Rectal, Enteric Tube, Stoma or Indwelling Catheter, Enteric Contrast as designated per enteric contrast guidelines 1 Each 06/04/2024 06/05/2024 Active Start: 11-21-2023 End: 11-22-2023 enteric contrast (will be pr ovided with radiology test) MRI RECTUM WO/W. Administer, As Directed One Time Only, via Oral, Rectal, both Oral and Rectal, Enteric Tube, Stoma or Indwelling Catheter, Enteric Contrast as designated per enteric contrast guidelines 1 Each 0 11/21/2023 11/22/2023 Active Start: 07-10-2023 End: 07-11-2023 enteric contrast (will be pr ovided with radiology test) Indications: Rectal cancer (HCC) MRI RECTUM WO/W. Administer, As Directed One Time Only, via Oral, Rectal, both Oral and Rectal, Enteric Tube, Stoma or Indwelling Catheter, Enteric Contrast as designated per enteric contrast guidelines 1 Each 0 07/10/2023 07/11/2023 Start: 07-10-2023 End: 07-11-2023 enteric contrast (will be pr ovided with radiology test) Indications: Rectal cancer (HCC) For CT ABD/PEL W IVCON Routine order Administer, As Directed One Time Only, via Oral, Rectal, both Oral and Rectal, Enteric Tube, Stoma or Indwelling Catheter, Enteric Contrast as designated per enteric contrast guidelines 1 Each 0 07/10/2023 07/11/2023 Start: 07-10-2023 End: 07-11-2023 enteric contrast (will be pr ovided with radiology test) Indications: Rectal cancer (HCC) MRI RECTUM WO/W. Administer, As Directed One Time Only, via Oral, Rectal, both Oral and Rectal, Enteric Tube, Stoma or Indwelling Catheter, Enteric Contrast as designated per enteric contrast guidelines 1 Each 0 07/10/2023 07/11/2023 Active Start: 07-10-2023 End: 07-11-2023 enteric contrast (will be pr ovided with radiology test) Indications: Rectal cancer (HCC) For CT ABD/PEL W IVCON Routine order Administer, As Directed One Time Only, via Oral, Rectal, both Oral and Rectal, Enteric Tube, Stoma or Indwelling Catheter, Enteric Contrast as designated per enteric contrast guidelines 1 Each 0 07/10/2023 07/11/2023 Active Comment on above: MRI RECTUM WO/W. Adm inister, As Directed One Time Only, via Oral, Rectal, both Oral and Rectal, Enteric Tube, Stoma or Indwelling Catheter, Enteric Contrast as designated per enteric contrast guidelines For CT ABD/PEL W IVC ON Routine order Administer, As Directed One Time Only, via Oral, Rectal, both Oral and Rectal, Enteric Tube, Stoma or Indwelling Catheter, Enteric Contrast as designated per enteric contrast guidelines finerenone 10 mg tablet (19 sources) Start: 4 End: 5 take 1 tablet by mouth in the morning finerenone 10 mg tablet Indications: Type 2 diabetes mellitus with microalbuminuria, with long-term current use of insulin ([facility]) Take 10 mg by mouth in the morning. 90 tablet 1 12/29/2023 11/05/2024 Discontinued (Cost of medication) Start: 12-29-2023 take 1 tablet by faustino th in the morning finerenone 10 mg tablet Indications: Type 2 diabetes mellitus with microalbuminuria, with long-term current use of insulin ([facility]) Take 10 mg by mouth in the morning. 90 tablet 1 12/29/2023 Active fluconazole 150 mg oral tablet (20 sources) Azole Antifungal End: 09-11-2023 fluconazole (DIFLUCAN) 150 mg tablet Take 150 mg by mouth as directed. 09/11/2023 Discontinued (Discontinued by Patient) Comment on above: Take 150 mg by mouth as directed. iv contrast (will be provided with radiology test) (20 sources) Start: 11-17-2024 End: 11-18-2024 iv contrast (will be provided with radiology test) Indications: Malignant neoplasm of rectum (HCC) MRI Rectum Inject, [...] MR contrast administration guidelines link. 1 each 11/17/2024 11/18/2024 Start: 08-14-2024 End: 08-15-2024 iv contrast (will be provide d with radiology test) Indications: Malignant neoplasm of rectum (HCC) , Type 2 diabetes mellitus with other specified complication, with long-term current use of insulin (HCC) , Other depression , Wound cellulitis , Rectal cancer (HCC) , Stage 3a chronic kidney disease (HCC) MRI Rectum Inject, intravenously, once for [...] the MR contrast administration guidelines link. 1 Each 08/14/2024 08/15/2024 Active Start: 06-04-2024 End: 06-05-2024 iv contrast (will be provide d with radiology test) MRI Rectum Inject, intravenously, once for 1 [...] the MR contrast administration guidelines link. 1 Each 06/04/2024 06/05/2024 Start: 06-04-2024 End: 06-05-2024 iv contrast (will be provide d with radiology test) CT Chest ABD/PEL-Inject, intravenously, once for 1 dose.No IV access, insert saline lock prior to the beginning of sedation, infusion, injection of imaging exam. Discontinue saline lock post exam. If Pt. has a central line or IVAD, may access for administration according to line specific nursing protocol. Once exam is complete flush line and de-access according to line specific nursing protocol in the CT contrast administration guidelines link. 1 Each 06/04/2024 06/05/2024 Start: 06-04-2024 End: 06-05-2024 iv contrast (will be provide d with radiology test) MRI Rectum Inject, intravenously, once for 1 [...] the MR contrast administration guidelines link. 1 Each 06/04/2024 06/05/2024 Active Start: 06-04-2024 End: 06-05-2024 iv contrast (will be provide d with radiology test) CT Chest ABD/PEL-Inject, intravenously, once for 1 dose.No IV access, insert saline lock prior to the beginning of sedation, infusion, injection of imaging exam. Discontinue saline lock post exam. If Pt. has a central line or IVAD, may access for administration according to line specific nursing protocol. Once exam is complete flush line and de-access according to line specific nursing protocol in the CT contrast administration guidelines link. 1 Each 06/04/2024 06/05/2024 Active Start: 11-21-2023 End: 11-22-2023 iv contrast (will be provide d with radiology test) MRI Rectum Inject, intravenously, once for 1 [...] the MR contrast administration guidelines link. 1 Each 0 11/21/2023 11/22/2023 Active Start: 11-21-2023 End: 11-22-2023 iv contrast (will be provide d with radiology test) Indications: Malignant neoplasm of rectum (HCC) , Rectal cancer (HCC) , Lung nodules CT Chest W -Inject, intravenously, once for 1 dose.No IV access, insert saline lock prior to the beginning of sedation, infusion, injection of imaging exam. Discontinue saline lock post exam. If Pt. has a central line or IVAD, may access for administration according to line specific nursing protocol. Once exam is complete flush line and de-access according to line specific nursing protocol in the CT contrast administration guidelines link. 1 Each 0 11/21/2023 11/22/2023 Active Start: 07-10-2023 End: 07-11-2023 iv contrast (will be provide d with radiology test) Indications: Rectal cancer (HCC) MRI Rectum Inject, intravenously, once for [...] the MR contrast administration guidelines link. 1 Each 0 07/10/2023 07/11/2023 Start: 07-10-2023 End: 07-11-2023 iv contrast (will be provide d with radiology test) Indications: Rectal cancer (HCC) CT Chest W -Inject, intravenously, once for 1 dose.No IV access, insert saline lock prior to the beginning of sedation, infusion, injection of imaging exam. Discontinue saline lock post exam. If Pt. has a central line or IVAD, may access for administration according to line specific nursing protocol. Once exam is complete flush line and de-access according to line specific nursing protocol in the CT contrast administration guidelines link. 1 Each 0 07/10/2023 07/11/2023 Start: 07-10-2023 End: 07-11-2023 iv contrast (will be provide d with radiology test) Indications: Rectal cancer (HCC) CT ABD/PEL -Inject, intravenously, once for 1 dose.No IV access, insert saline lock prior to the beginning of sedation, infusion, injection of imaging exam. Discontinue saline lock post exam. If Pt. has a central line or IVAD, may access for administration according to line specific nursing protocol. Once exam is complete flush line and de-access according to line specific nursing protocol in the CT contrast administration guidelines link. 1 Each 0 07/10/2023 07/11/2023 Start: 07-10-2023 End: 07-11-2023 iv contrast (will be provide d with radiology test) Indications: Rectal cancer (HCC) MRI Rectum Inject, intravenously, once for [...] the MR contrast administration guidelines link. 1 Each 0 07/10/2023 07/11/2023 Active Start: 07-10-2023 End: 07-11-2023 iv contrast (will be provide d with radiology test) Indications: Rectal cancer (HCC) CT Chest W -Inject, intravenously, once for 1 dose.No IV access, insert saline lock prior to the beginning of sedation, infusion, injection of imaging exam. Discontinue saline lock post exam. If Pt. has a central line or IVAD, may access for administration according to line specific nursing protocol. Once exam is complete flush line and de-access according to line specific nursing protocol in the CT contrast administration guidelines link. 1 Each 0 07/10/2023 07/11/2023 Active Start: 07-10-2023 End: 07-11-2023 iv contrast (will be provide d with radiology test) Indications: Rectal cancer (HCC) CT ABD/PEL -Inject, intravenously, once for 1 dose.No IV access, insert saline lock prior to the beginning of sedation, infusion, injection of imaging exam. Discontinue saline lock post exam. If Pt. has a central line or IVAD, may access for administration according to line specific nursing protocol. Once exam is complete flush line and de-access according to line specific nursing protocol in the CT contrast administration guidelines link. 1 Each 0 07/10/2023 07/11/2023 Active Comment on above: MRI Rectum Inject, i ntravenously, once for 1 dose. No IV access, [...] in the MR contrast administration guidelines link. CT Chest W -Inject, intravenously, once for 1 dose.No IV access, insert saline lock prior to the beginning of sedation, infusion, injection of imaging exam. Discontinue saline lock post exam. If Pt. has a central line or IVAD, may access for administration according to line specific nursing protocol. Once exam is complete flush line and de-access according to line specific nursing protocol in the CT contrast administration guidelines link. CT ABD/PEL -Inject, intravenously, once for 1 dose.No IV access, insert saline lock prior to the beginning of sedation, infusion, injection of imaging exam. Discontinue saline lock post exam. If Pt. has a central line or IVAD, may access for administration according to line specific nursing protocol. Once exam is complete flush line and de-access according to line specific nursing protocol in the CT contrast administration guidelines link. lidocaine/me-bryan/menthol/cam ph (CBD-KINGS WITH LIDOCAINE TOPICAL) (1 source) End: 4 lidocaine/me-bryan/mentho l/camph (CBD-KINGS WITH LIDOCAINE TOPICAL) Apply to affected area. 0 09/19/2023 Discontinued methylPREDNISolone (1 source) Corticosteroid Start: 7 Depo-Medrol 20 mg Aug, 20 mg NaCl 0.9% 1,000 mL (1 source) Start: 4 End: 4 NaCl 0.9% 1,000 mL oxaliplatin (3 sources) [place] Start: End: 200 mg (rounded from 205 mg = 100 mg/m2 2.05 m2 Treatment Plan BSA from Recorded weight), INTRAVENOUS, Administer over 2 Hours, ONCE, 1 dose, On Sun06/04/24 at 1430, EXP: 06/08/2024 1340 RT Hazardous Chemotherapy Drug: Use appropriate PPE. Antineoplastic Irritant with Vesicant Potential. Flush line with D5W before and after administration. Start: 03-20-2024 End: 03-20-2024 200 mg (rounded from 205 mg = 100 mg/m2 2.05 m2 Treatment Plan BSA from Recorded weight), INTRAVENOUS, Administer over 2 Hours, ONCE, 1 dose, On Tisha 03/20/24 at 1430, EXP: 03/24/2024 1400 RT Hazardous Chemotherapy Drug: Use appropriate PPE. Antineoplastic Irritant with Vesicant Potential. Flush line with D5W before and after administration. Start: 01-31-2024 End: 01-31-2024 200 mg (rounded from 203 mg = 100 mg/m2 2.03 m2 Treatment Plan BSA from Recorded weight), INTRAVENOUS, Administer over 2 Hours, ONCE, 1 dose, On Tisha 01/31/24 at 1430, EXP: 02/01/2024 2020 RT Hazardous Chemotherapy Drug: Use appropriate PPE. Antineoplastic Irritant with Vesicant Potential. Flush line with D5W before and after administration. 5 ml palonosetron 0.05 mg/ml injection (3 sources) Serotonin-3 Receptor Antagonist Start: 06-04-2024 End: 06-04-2024 0.25 mg, INTRAVENOUS, ONCE, 1 dose, On Sun06/04/24 at 1400, Flush IV line with NS prior to and following administration. Start: 03-20-2024 End: 03-20-2024 0.25 mg, INTRAVENOUS, ONCE, 1 dose, On Tisha 03/20/24 at 1400, Flush IV line with NS prior to and following administration. Start: 01-31-2024 End: 01-31-2024 0.25 mg, INTRAVENOUS, ONCE, 1 dose, On Tisha 01/31/24 at 1400, Flush IV line with NS prior to and following administration. penicillin v potassium 500 mg oral tablet (3 sources) Start: 09-11-2023 End: 02-13-2024 take 1 tablet by mouth twice daily Penicillin V Potassium 500 mg tablet Discontinued 500 MG PO Twice daily 09 03September 10, 2023 11:00pm February 13, 2024 10:29am Potassium Chloride 20 mEq tablet,ER particles/crystals (1 source) Start: 07-26-2023 End: 02-13-2024 Potassium Chloride 20 mEq tablet,ER particles/crystals Discontinued MEQ PO July 26, 2023 12:00am February 13, 2024 10:29am potassium gluconate 2.5 meq oral tablet (20 sources) End: 09-11-2023 Potassium Gluconate 595 mg (99 mg) tab Take 595 mg by mouth. 09/11/2023 Discontinued Comment on above: Take 595 mg by mouth . predniSONE 50 mg oral tablet (4 sources) Start: 11-02-2024 End: 11-05-2024 take 1 tablet by mouth in the morning predniSONE (DELTASONE) 50 mg tablet Take 1 tablet (50 mg total) by mouth in the morning for 5 days. 5 tablet 11/02/2024 11/05/2024 Discontinued (Therapy completed) Start: 07-26-2023 End: 09-11-2023 take 1 tablet by mouth twice daily Prednisone 20 mg tablet Discontinued 20 MG PO Twice daily 02 22July 26, 2023 12:00am September 11, 2023 9:31am semaglutide (OZEMPIC) 1 mg/dose (4 mg/3 mL) pen (20 sources) Start: 05-09-2023 End: 09-11-2023 inject 1 mg by subcutaneous injection every week semaglutide (OZEMPIC) 1 mg/dose (4 mg/3 mL) pen Inject 1 mg subcutaneously one time a week. 05/09/2023 09/11/2023 Discontinued (Discontinued by another Health Care Provider) Start: 05-09-2023 End: 09-11-2023 inject 1 mg by subcutaneous injection every week semaglutide (OZEMPIC) 1 mg/dose (4 mg/3 mL) pen Inject 1 mg subcutaneously one time a week. 0 05/09/2023 09/11/2023 Discontinued (Discontinued by another Health Care Provider) Start: 05-09-2023 inject 1 mg by subcu taneous injection every week semaglutide (OZEMPIC) 1 mg/dose (4 mg/3 mL) pen Inject 1 mg subcutaneously one time a week. 0 05/09/2023 Active Comment on above: Inject 1 mg subcutan eously one time a week. semaglutide (OZEMPIC) 1 mg/dose (4 mg/3 mL) pen injector (20 sources) Start: 023 End: inject 1 mg by subcutaneous injection every week semaglutide (OZEMPIC) 1 mg/dose (4 mg/3 mL) pen injector Indications: Type 2 diabetes mellitus without complication, without long-term current use of insulin ([facility]) Inject 1 mg under the skin once a week. 3 mL 2 05/09/2023 10/17/2023 Discontinued Start: 05-09-2023 inject 1 mg by subcu taneous injection every week semaglutide (OZEMPIC) 1 mg/dose (4 mg/3 mL) pen injector Indications: Type 2 diabetes mellitus without complication, without long-term current use of insulin ([facility]) Inject 1 mg under the skin once a week. 3 mL 2 05/09/2023 Active semaglutide (OZEMPIC) 2 mg/dose (8 mg/3 mL) pen injector (20 sources) Start: 09-05-2024 End: 11-28-2024 inject 2 mg by subcutaneous injection every week semaglutide (OZEMPIC) 2 mg/dose (8 mg/3 mL) pen injector Indications: Type 2 diabetes mellitus with microalbuminuria, with long-term current use of insulin ([facility]) Dial and inject 2 mg under the skin weekly 9 mL 09/05/2024 11/28/2024 Discontinued Start: 09-05-2024 inject 2 mg by subcu taneous injection every week semaglutide (OZEMPIC) 2 mg/dose (8 mg/3 mL) pen injector Indications: Type 2 diabetes mellitus with microalbuminuria, with long-term current use of insulin ([facility]) Dial and inject 2 mg under the skin weekly 9 mL 09/05/2024 Active Start: 06-16-2024 End: 09-05-2024 inject 2 mg by subcutaneous injection every week semaglutide (OZEMPIC) 2 mg/dose (8 mg/3 mL) pen injector Indications: Type 2 diabetes mellitus with microalbuminuria, with long-term current use of insulin ([facility]) Dial and inject 2 mg under the skin weekly 9 mL 06/16/2024 09/05/2024 Discontinued Start: 06-16-2024 inject 2 mg by subcu taneous injection every week semaglutide (OZEMPIC) 2 mg/dose (8 mg/3 mL) pen injector Indications: Type 2 diabetes mellitus with microalbuminuria, with long-term current use of insulin ([facility]) Dial and inject 2 mg under the skin weekly 9 mL 06/16/2024 Active Start: 04-09-2024 End: 06-16-2024 inject 2 mg by subcutaneous injection every week semaglutide (OZEMPIC) 2 mg/dose (8 mg/3 mL) pen injector Indications: Type 2 diabetes mellitus with microalbuminuria, with long-term current use of insulin ([facility]) Dial and inject 2 mg under the skin weekly 9 mL 04/09/2024 06/16/2024 Discontinued Start: 04-09-2024 inject 2 mg by subcu taneous injection every week semaglutide (OZEMPIC) 2 mg/dose (8 mg/3 mL) pen injector Indications: Type 2 diabetes mellitus with microalbuminuria, with long-term current use of insulin ([facility]) Dial and inject 2 mg under the skin weekly 9 mL 04/09/2024 Active Start: 12-29-2023 End: 04-09-2024 inject 2 mg by subcutaneous injection every week semaglutide (OZEMPIC) 2 mg/dose (8 mg/3 mL) pen injector Indications: Type 2 diabetes mellitus with microalbuminuria, with long-term current use of insulin ([facility]) Inject 2 mg under the skin once a week. 9 mL 1 12/29/2023 04/09/2024 Discontinued Start: 12-29-2023 inject 2 mg by subcu taneous injection every week semaglutide (OZEMPIC) 2 mg/dose (8 mg/3 mL) pen injector Indications: Type 2 diabetes mellitus with microalbuminuria, with long-term current use of insulin ([facility]) Inject 2 mg under the skin once a week. 9 mL 1 12/29/2023 Active Toradol 30 mg/ml (1 source) Start: 09-26-2022 Toradol 30 mg/ ml September, 30 mg Triamcinolone (1 source) Corticosteroid Start: 09-15-2019 Kenalog -40 mg Aug, 40 mg Problems Active Problems Problem Classification Problem Date Documented Date Episodic/Chronic Anxiety disorders (6 sources) Anxiety; Translations: [Anxiety disorder, unspecified] 09-11-2023 Chronic Asthma (1 source) Unspecified asthma with (acute) exacerbation; Translations: [Unspecified asthma with (acute) exacerbation] Onset: 11-02-2024 Chronic Cancer of other female genital organs (20 sources) Malignant tumor of vulva; Translations: [Malignant neoplasm of vulva, unspecified] Onset: 11-01-2018 07-19-2023 Chronic Cancer of rectum and anus (20 sources) Adenocarcinoma of rectum; Translations: [Malignant neoplasm of rectum] Onset: 07-30-2023 07-13-2023 Chronic Cancer of rectum and anus (2 sources) History of malignant neoplasm of digestive organ; Translations: [Personal history of other malignant neoplasm of rectum, rectosigmoid junction, and anus] Onset: 11-17-2024 11-17-2024 Episodic Cardiac dysrhythmias (20 sources) Atrial fibrillation with rapid ventricular response; Translations: [Unspecified atrial fibrillation] Onset: 07-30-2023 07-30-2023 Chronic Chronic kidney disease (20 sources) Chronic kidney disease stage 3A ; Translations: [Stage 3a chronic kidney disease] Onset: 10-31-2023 10-31-2023 Chronic Chronic kidney disease (2 sources) Chronic kidney disease; Translations: [Stage 3a chronic kidney disease (HCC)] Onset: 10-31-2023 Chronic obstructive pulmonary disease and bronchiectasis (1 source) Bronchitis, not specified as acute or chronic; Translations: [Bronchitis, not specified as acute or chronic] 07-26-2023 Episodic Chronic ulcer of skin (4 sources) Chronic ulcer of skin; Translations: [Non-pressure chronic ulcer of skin of other sites with unspecified severity] Onset: 11-17-2024 11-17-2024 Chronic Coma; stupor; and brain damage (1 source) Loss of consciousness; Translations: [Unspecified coma] 10-17-2023 Episodic Conditions associated with dizziness or vertigo (6 sources) Benign paroxysmal positional vertigo; Translations: [Benign paroxysmal vertigo, unspecified ear] 05-09-2024 Episodic Diabetes mellitus with complications (20 sources) Type 2 diabetes mellitus; Translations: [Type 2 diabetes mellitus with other diabetic kidney complication] Onset: 10-08-2018 07-13-2023 Chronic Diabetes mellitus without complication (20 sources) Type 2 diabetes mellitus without complications; Translations: [Diabetes mellitus] Onset: 10-08-2018 Chronic Disorders of lipid metabolism (11 sources) Mixed hyperlipidemia; Translations: [Mixed hyperlipidemia] Onset: 12-27-2023 05-08-2024 Chronic Disorders of teeth and jaw (3 sources) Periapical abscess; Translations: [Periapical abscess without sinus] 10-04-2023 Episodic Diverticulosis and diverticulitis (1 source) Diverticulitis of intestine, part unspecified, without perforation or abscess without bleeding; Translations: [Diverticulitis of intestine, part unspecified, without perforation or abscess without bleeding] Onset: 06-24-2024 Chronic Essential hypertension (20 sources) Essential (primary) hypertension; Translations: [Hypertensive disorder] Onset: 05-23-2021 Chronic Headache; including migraine (1 source) Headache Onset: 11-02-2024 Episodic Malaise and fatigue (1 source) Malaise and fatigue; Translations: [Other malaise] 05-16-2024 Episodic Menopausal disorders (3 sources) Atrophic vaginitis; Translations: [Postmenopausal atrophic vaginitis] 06-18-2023 Chronic Mood disorders (14 sources) Depressive disorder; Translations: [Depression] Onset: 11-14-2024 09-11-2023 Chronic Nutritional deficiencies (6 sources) Iron deficiency; Translations: [Iron deficiency] 09-17-2023 Episodic Osteoarthritis (20 sources) Osteoarthritis of left knee joint; Translations: [Unilateral primary osteoarthritis, left knee] Onset: 11-13-2016 11-13-2016 Chronic Other aftercare (9 sources) correction (current) use of insulin; Translations: [ferry terminal agent (current) use of insulin] Onset: 10-08-2018 Episodic Other aftercare (1 source) Patient encounter status; Translations: [Encounter for follow-up examination after completed treatment for conditions other than malignant neoplasm] 11-17-2024 Episodic Other aftercare (1 source) Long-term current use of insulin; Translations: [correction (current) use of insulin] 11-17-2024 Episodic Other aftercare (1 source) H/O: malignant neoplasm; Translations: [Encounter for follow-up examination after completed treatment for malignant neoplasm] 11-17-2024 Episodic Other aftercare (1 source) Encounter for follow-up examination after completed treatment for conditions other than malignant neoplasm; Translations: [Encounter for follow-up examination after completed treatment for conditions other than malignant neoplasm] Onset: 11-17-2024 Episodic Other aftercare (1 source) Encounter for follow-up examination after completed treatment for malignant neoplasm; Translations: [Encounter for follow-up examination after completed treatment for malignant neoplasm] Onset: 11-17-2024 Episodic Other lower respiratory disease (3 sources) Multiple nodules of lung; Translations: [Other nonspecific abnormal finding of lung field] 11-21-2023 Episodic Other lower respiratory disease (1 source) Cough Onset: 11-02-2024 Episodic Other skin disorders (1 source) Lichen sclerosus et atrophicus; Translations: [Circumscribed scleroderma] 08-07-2023 Chronic Other upper respiratory disease (1 source) Nasal congestion Onset: 11-02-2024 Episodic Other upper respiratory infections (1 source) Acute upper respiratory infection, unspecified; Translations: [Acute upper respiratory infection, unspecified] Onset: 11-02-2024 Episodic Residual codes; unclassified (1 source) Family history of malignant neoplasm of other genital organs; Translations: [FAM HX MALIG NEOPLSM OT GENIT ORGN] Onset: 12-23-2021 Episodic Residual codes; unclassified (1 source) Family history of ischemic heart disease; Translations: [Family history of ischemic heart disease and other diseases of the circulatory system] 11-17-2024 Episodic Residual codes; unclassified (1 source) Family history of ischemic heart disease and other diseases of the circulatory system; Translations: [Family history of ischemic heart disease] Onset: 11-17-2024 Episodic Skull and face fractures (1 source) Fracture of tooth ; Translations: [Fracture of tooth (traumatic), initial encounter for closed fracture] 10-04-2023 Episodic Unclassified (1 source) maw Onset: 10-30-2024 Unclassified (1 source) Wound Check Onset: 07-08-2024 Unclassified (1 source) STOMACH PAINS, VOMITING Onset: 06-08-2024 Past or Other Problems Problem Classification Problem Date Documented Da te Episodic/Chronic Abdominal pain (2 sources) Generalized abdominal pain; Translations: [Abdominal pain] Onset: 06-08-2024 Episodic Anal and rectal conditions (20 sources) Rectal mass; Translations: [Other specified diseases of anus and rectum] Onset: 05-25-2023 05-25-2023 Episodic Cancer of other female genital organs (1 source) History of malignant neoplasm of vulva; Translations: [Personal history of malignant neoplasm of other female genital organs] 06-18-2023 Episodic Diabetes mellitus without complication (1 source) Hyperglycemia, unspecified; Translations: [Hyperglycemia, unspecified] Onset: 06-24-2024 Episodic Fluid and electrolyte disorders (20 sources) Hypokalemia; Translations: [Hypokalemia] Onset: 07-31-2023 07-31-2023 Episodic Gastrointestinal hemorrhage (20 sources) Rectal hemorrhage; Translations: [Hemorrhage of anus and rectum] Onset: 05-11-2023 05-11-2023 Episodic Genitourinary symptoms and ill-defined conditions (2 sources) Proteinuria, unspecified; Translations: [Proteinuria, unspecified] Onset: 07-30-2023 Episodic Intestinal obstruction without hernia (20 sources) Food bolus obstruction of intestine; Translations: [Other intestinal obstruction unspecified as to partial versus complete obstruction] Onset: 05-29-2022 05-30-2022 Episodic Joint disorders and dislocations; trauma-related (4 sources) Dislocation of tarsometatarsal joint of left foot, initial encounter; Translations: [DISLOC TMT JOINT LT FOOT INITIAL] Onset: 03-07-2021 Episodic Miscellaneous mental health disorders (1 source) Anxiety about body function or health; Translations: [Other symptoms and signs involving emotional state] 04-04-2024 Episodic Mood disorders (20 sources) Mood disorders Onset: 08-20-2023 Resolved: 11-05-2024 08-20-2023 Open wounds of extremities (1 source) Unspecified open wound, right lower leg, initial encounter; Translations: [Unspecified open wound, right lower leg, initial encounter] Onset: 07-08-2024 Episodic Other connective tissue disease (4 sources) Pain in left foot; Translations: [PAIN IN LEFT FOOT] Onset: 02-02-2021 Episodic Other connective tissue disease (1 source) Calcaneal spur, left foot; Translations: [CALCANEAL SPUR LEFT FOOT] Onset: 02-17-2021 Episodic Other female genital disorders (20 sources) Lesion of vulva; Translations: [Other specified noninflammatory disorders of vulva and perineum] Onset: 10-21-2018 10-21-2018 Episodic Other female genital disorders (1 source) Pruritus of vagina; Translations: [Other specified noninflammatory disorders of vagina] 07-17-2023 Episodic Other injuries and conditions due to external causes (20 sources) Obstruction of esophagus; Translations: [Food in esophagus causing other injury, initial encounter] Onset: 05-29-2022 05-29-2022 Episodic Other non-traumatic joint disorders (1 source) Pain in left ankle and joints of left foot; Translations: [PAIN IN LEFT ANKLE] Onset: 02-17-2021 Episodic Other screening for suspected conditions (not mental disorders or infectious disease) (9 sources) Encounter for screening mammogram for malignant neoplasm of breast; Translations: [Patient encounter status] Onset: 12-19-2021 Episodic Residual codes; unclassified (2 sources) History of carcinoma in situ of vulva; Translations: [Personal history of in-situ neoplasm of other and unspecified genital organs] 07-17-2023 Episodic Skin and subcutaneous tissue infections (12 sources) Wound cellulitis; Translations: [Cellulitis, unspecified] Onset: 06-23-2024 05-16-2024 Episodic Superficial injury; contusion (1 source) Contusion of left foot, initial encounter; Translations: [CONTUSION LEFT FOOT INITIAL ENC] Onset: 03-14-2021 Episodic Unclassified (1 source) Cough R05.9 Unclassified (20 sources) Onset: 04-23-2019 04-23-2019 Viral infection (20 sources) Disease caused by 2019-nCoV; Translations: [COVID-19] Onset: 03-21-2021 03-21-2021 Episodic Viral infection (1 source) COVID-19 Results Test Name Value Interpretation Reference Range Facility CBC W Auto Differential pane l (Bld)on 11-17-2024 Basophils (Bld) [#/Vol] 0.03 10*3/uL Normal <0.11 [facility] Comment on above: Order Comment: Speci men Type: BLOOD SPECIMENOrdering Facility: [facility] Address: [address] [place] [address] Performed By: #### 5 7021-8 ####[facility] LABCLIA [id number] [place] [address] Basophils/100 WBC (Bld) 0.5 % Normal [facility] Comment on above: Order Comment: Speci men Type: BLOOD SPECIMENOrdering Facility: [facility] Address: [address] [place] [address] Performed By: #### 5 7021-8 ####[facility] LABCLIA [id number] [place] [address] Differential cell count method Nom (Bld) Auto Normal [facility] Comment on above: Order Comment: Speci men Type: BLOOD SPECIMENOrdering Facility: [facility] Address: [address] [place] [address] Performed By: #### 5 7021-8 ####[facility] LABCLIA [id number] [place] [address] Eosinophils (Bld) [#/Vol] 0.25 10*3/uL Normal <0.46 [facility] Comment on above: Order Comment: Speci men Type: BLOOD SPECIMENOrdering Facility: [facility] Address: [address] [place] [address] Performed By: #### 5 7021-8 ####[facility] LABCLIA [id number] [place] [address] Eosinophils/100 WBC (Bld) 3.9 % Normal [facility] Comment on above: Order Comment: Speci men Type: BLOOD SPECIMENOrdering Facility: [facility] Address: [address] [place] [address] Performed By: #### 5 7021-8 ####[facility] LABCLIA [id number] [place] [address] Erythrocyte distribution width (RBC) [Ratio] 12.7 % Normal 11.5-15.0 [facility] Comment on above: Order Comment: Speci men Type: BLOOD SPECIMENOrdering Facility: [facility] Address: [address] [place] [address] Performed By: #### 5 7021-8 ####[facility] LABCLIA [id number] [place] [address] Hematocrit (Bld) [Volume fraction] 36.6 % Normal 36.0-46.0 [facility] Comment on above: Order Comment: Speci men Type: BLOOD SPECIMENOrdering Facility: [facility] Address: [address] [place] [address] Performed By: #### 5 7021-8 ####[facility] LABCLIA [id number] [place] [address] Hemoglobin (Bld) [Mass/Vol] 12.7 g/dL Normal 11.5-15.5 [facility] Comment on above: Order Comment: Speci men Type: BLOOD SPECIMENOrdering Facility: [facility] Address: [address] [place] [address] Performed By: #### 5 7021-8 ####[facility] LABCLIA [id number] [place] [address] Immature granulocytes (Bld) [#/Vol] 0.04 10*3/uL Normal <0.10 [facility] Comment on above: Order Comment: Speci men Type: BLOOD SPECIMENOrdering Facility: [facility] Address: [address] [place] [address] Performed By: #### 5 7021-8 ####[facility] LABCLIA [id number] [place] [address] Immature granulocytes/100 WBC (Bld) 0.6 % Normal [facility] Comment on above: Order Comment: Speci men Type: BLOOD SPECIMENOrdering Facility: [facility] Address: [address] [place] [address] Performed By: #### 5 7021-8 ####[facility] LABCLIA [id number] [place] [address] Lymphocytes (Bld) [#/Vol] 0.49 10*3/uL Low 1.00-4.00 [facility] Comment on above: Order Comment: Speci men Type: BLOOD SPECIMENOrdering Facility: [facility] Address: [address] [place] [address] Performed By: #### 5 7021-8 ####[facility] LABCLIA [id number] [place] [address] Lymphocytes/100 WBC (Bld) 7.6 % Normal [facility] Comment on above: Order Comment: Speci men Type: BLOOD SPECIMENOrdering Facility: [facility] Address: [address] [place] [address] Performed By: #### 5 7021-8 ####[facility] LABIA [id number] [place] [address] MCH (RBC) [Entitic mass] 28.0 pg Normal 26.0-34.0 [facility] Comment on above: Order Comment: Speci men Type: BLOOD SPECIMENOrdering Facility: [facility] Address: [address] [place] [address] Performed By: #### 5 7021-8 ####[facility] LABCLIA [id number] [place] [address] MCHC (RBC) [Mass/Vol] 34.7 g/dL Normal 30.5-36.0 [facility] Comment on above: Order Comment: Speci men Type: BLOOD SPECIMENOrdering Facility: [facility] Address: [address] [place] [address] Performed By: #### 5 7021-8 ####[facility] LABIA [id number] [place] [address] MCV (RBC) [Entitic vol] 80.8 fL Normal 80.0-100.0 [facility] Comment on above: Order Comment: Speci men Type: BLOOD SPECIMENOrdering Facility: [facility] Address: [address] [place] [address] Performed By: #### 5 7021-8 ####[facility] LABCLIA [id number] [place] [address] Monocytes (Bld) [#/Vol] 0.48 10*3/uL Normal <0.87 [facility] Comment on above: Order Comment: Speci men Type: BLOOD SPECIMENOrdering Facility: [facility] Address: [address] [place] [address] Performed By: #### 5 7021-8 ####[facility] LABCLIA [id number] [place] [address] Monocytes/100 WBC (Bld) 7.4 % Normal [facility] Comment on above: Order Comment: Speci men Type: BLOOD SPECIMENOrdering Facility: [facility] Address: [address] [place] [address] Performed By: #### 5 7021-8 ####[facility] LABCLIA [id number] [place] [address] Neutrophils (Bld) [#/Vol] 5.19 10*3/uL Normal 1.45-7.50 [facility] Comment on above: Order Comment: Speci men Type: BLOOD SPECIMENOrdering Facility: [facility] Address: [address] [place] [address] Performed By: #### 5 7021-8 ####[facility] LABCLIA [id number] [place] [address] Neutrophils/100 WBC (Bld) 80.0 % Normal [facility] Comment on above: Order Comment: Speci men Type: BLOOD SPECIMENOrdering Facility: [facility] Address: [address] [place] [address] Performed By: #### 5 7021-8 ####[facility] LABCLIA [id number] [place] [address] Nucleated RBC (Bld) [#/Vol] 10*3/uL Normal <0.01 [facility] Comment on above: Order Comment: Speci men Type: BLOOD SPECIMENOrdering Facility: [facility] Address: [address] [place] [address] Performed By: #### 5 7021-8 ####[facility] LABCLIA [id number] [place] [address] Nucleated RBC/100 WBC (Bld) [Ratio] 0.0 /100 WBC Normal [facility] Comment on above: Order Comment: Speci men Type: BLOOD SPECIMENOrdering Facility: [facility] Address: [address] [place] [address] Performed By: #### 5 7021-8 ####[facility] LABIA [id number] [place] [address] Platelet mean volume (Bld) [Entitic vol] 9.1 fL Normal 9.0-12.7 [facility] Comment on above: Order Comment: Speci men Type: BLOOD SPECIMENOrdering Facility: [facility] Address: [address] [place] [address] Performed By: #### 5 7021-8 ####[facility] LABCLIA [id number] [place] [address] Platelets (Bld) [#/Vol] 294 10*3/uL Normal 150-400 [facility] Comment on above: Order Comment: Speci men Type: BLOOD SPECIMENOrdering Facility: [facility] Address: [address] [place] [address] Performed By: #### 5 7021-8 ####[facility] LABIA [id number] [place] [address] RBC (Bld) [#/Vol] 4.53 10*6/uL Normal 3.90-5.20 [facility] Comment on above: Order Comment: Speci men Type: BLOOD SPECIMENOrdering Facility: [facility] Address: [address] [place] [address] Performed By: #### 5 7021-8 ####[facility] LABCLIA [id number] [place] [address] WBC (Bld) [#/Vol] 6.48 10*3/uL Normal 3.70-11.00 [facility] Comment on above: Order Comment: Speci men Type: BLOOD SPECIMENOrdering Facility: [facility] Address: [address] [place] [address] Performed By: #### 5 7021-8 ####[facility] LABIA [id number] [place] [address] CEA SerPl-nc 11-17-2024 Carcinoembryonic Ag [Mass/Vol] 4.8 ng/mL High <=2.9 [facility] Comment on above: Order Comment: Speci men Type: BLOOD SPECIMENOrdering Facility: [facility] Address: [address] [place] [address] Result Comment: Carc inoembryonic antigen test is used as an aid in monitoring response to treatment or recurrence in patients with established colorectal, breast, lung, prostatic, pancreatic, and ovarian carcinomas. Clinical correlation is required.The Carcinoembryonic antigen test was performed using the [employer] Un[employer]el DXI paramagnetic particle chemiluminescent immunoassay method. Results obtained with different assay methods or kits cannot be used interchangeably. Performed By: #### 2 039-6 ####[facility] LABCLIA [id number] [place] [id number] [place] CNOVSPon 11-17-2024 CNOVSP Normal [facility] Comprehensive metabolic 2000 panelon 11-17-2024 Albumin [Mass/Vol] 3.9 g/dL Normal 3.9-4.9 [facility] Comment on above: Order Comment: Speci men Type: BLOOD SPECIMENOrdering Facility: [facility] Address: [address] [place] [address] Performed By: #### 2 4323-8 ####[facility] LABCLIA [id number] [place] [address] ALP [Catalytic activity/Vol] 101 U/L Normal 34-123 [facility] Comment on above: Order Comment: Speci men Type: BLOOD SPECIMENOrdering Facility: [facility] Address: [address] [place] [address] Performed By: #### 2 4323-8 ####[facility] LABCLIA [id number] [place] [address] ALT [Catalytic activity/Vol] 11 U/L Normal 7-38 [facility] Comment on above: Order Comment: Speci men Type: BLOOD SPECIMENOrdering Facility: [facility] Address: [address] [place] [address] Performed By: #### 2 4323-8 ####[facility] LABCLIA [id number] [place] [address] Anion gap [Moles/Vol] 12 mmol/L Normal 8-15 [facility] Comment on above: Order Comment: Speci men Type: BLOOD SPECIMENOrdering Facility: [facility] Address: [address] [place] [address] Performed By: #### 2 4323-8 ####[facility] LABCLIA [id number] [place] [address] AST [Catalytic activity/Vol] 10 U/L Low 13-35 [facility] Comment on above: Order Comment: Speci men Type: BLOOD SPECIMENOrdering Facility: [facility] Address: [address] [place] [address] Performed By: #### 2 4323-8 ####[facility] LABCLIA [id number] [place] [address] Bilirubin [Mass/Vol] 0.9 mg/dL Normal 0.2-1.3 [facility] Comment on above: Order Comment: Speci men Type: BLOOD SPECIMENOrdering Facility: [facility] Address: [address] [place] [address] Performed By: #### 2 4323-8 ####[facility] LABCLIA [id number] [place] [address] Calcium [Mass/Vol] 10.2 mg/dL Normal 8.5-10.2 [facility] Comment on above: Order Comment: Speci men Type: BLOOD SPECIMENOrdering Facility: [facility] Address: [address] [place] [address] Performed By: #### 2 4323-8 ####[facility] LABCLIA [id number] [place] [address] Chloride [Moles/Vol] 99 mmol/L Normal 98-107 [facility] Comment on above: Order Comment: Speci men Type: BLOOD SPECIMENOrdering Facility: [facility] Address: [address] [place] [address] Performed By: #### 2 4323-8 ####[facility] LABCLIA [id number] [place] [address] CO2 [Moles/Vol] 24 mmol/L Normal 22-30 [facility] Comment on above: Order Comment: Speci men Type: BLOOD SPECIMENOrdering Facility: [facility] Address: [address] [place] [address] Performed By: #### 2 4323-8 ####[facility] LABCLIA [id number] [place] [address] Creatinine [Mass/Vol] 0.95 mg/dL Normal 0.58-0.96 [facility] Comment on above: Order Comment: Speci men Type: BLOOD SPECIMENOrdering Facility: [facility] Address: [address] [place], [place] [address] Performed By: #### 2 4323-8 ####[facility] LABCLIA [id number] [place] [address] Creatinine and Glomerular filtration rate.predicted panel (S/P/Bld) 66 mL/min/1.73m??? Normal >=60 [facility] Comment on above: Order Comment: Speci men Type: BLOOD SPECIMENOrdering Facility: [facility] Address: [address] [id number] Result Comment: Lisbeth mated Glomerular Filtration Rate (eGFR) is calculated using the 2020 CKD-EPI creatinine equation. This equation utilizes serum creatinine, sex, and age as parameters. The creatinine assay has traceable calibration to isotope dilution-mass spectrometry. Refer to KDIGO guidelines for clinical interpretation. In patients with unstable renal function, e.g. those with acute kidney injury, the eGFR may not accurately reflect actual GFR. Performed By: #### 2 4323-8 ####[place] [facility] LABCLIA [id number] [place] [address] Glucose [Mass/Vol] 498 mg/dL High 74-99 [facility] Comment on above: Order Comment: Milady mason Type: BLOOD SPECIMENOrdering Facility: [facility] Address: [address] [place] [address] Result Comment: The [place] Diabetes Association (ADA) provides guidance for cutoff values for fasting glucose and random glucose. The ADA defines fasting as no caloric intake for at least 8 hours. Fasting plasma glucose results between 100 to 125 mg/dL indicate increased risk for diabetes (prediabetes).Fasting plasma glucose results greater than or equal to 126 mg/dL meet the criteria for diagnosis of diabetes. In the absence of unequivocal hyperglycemia, results should be confirmed by repeat testing. In a patient with classic symptoms of hyperglycemia or hyperglycemic crisis, random plasma glucose results greater than or equal to 200 mg/dL meet the criteria for diagnosis of diabetes.Reference: Standards of Medical Care in Diabetes 2016, [place] [employer] Association. Diabetes Care. 2016.39(Suppl 1). Performed By: #### 2 4323-8 ####JESSICANCELTON [facility] LABIA [id number] [place] [address] Potassium [Moles/Vol] 4.5 mmol/L Normal 3.7-5.1 [facility] Comment on above: Order Comment: Milady mason Type: BLOOD SPECIMENOrdering Facility: [facility] Address: [address] [id number] Performed By: #### 2 4323-8 ####[facility] LABCLIA [id number] [place] [address] Protein [Mass/Vol] 6.9 g/dL Normal 6.3-8.0 [facility] Comment on above: Order Comment: Speci men Type: BLOOD SPECIMENOrdering Facility: [facility] Address: [address] [place] [address] Performed By: #### 2 4323-8 ####[facility] LABCLIA [id number] [place] [address] Sodium [Moles/Vol] 135 mmol/L Low 136-144 [facility] Comment on above: Order Comment: Speci men Type: BLOOD SPECIMENOrdering Facility: [facility] Address: [address] [place] [address] Performed By: #### 2 4323-8 ####[facility] LABCLIA [id number] [place] [address] Urea nitrogen [Mass/Vol] 15 mg/dL Normal 7-21 [facility] Comment on above: Order Comment: Speci men Type: BLOOD SPECIMENOrdering Facility: [facility] Address: [address] [place] [address] Performed By: #### 2 4323-8 ####[facility] LABCLIA [id number] [place] [address] Ferritin SerPl-mCncon 2024 Ferritin [Mass/Vol] 126.0 ng/mL Normal 14.7-205.1 [facility] Comment on above: Order Comment: Speci men Type: BLOOD SPECIMENOrdering Facility: [facility] Address: [address] [place] [address] Performed By: #### 5 0190-8, 2132-9, 2284-8, 2276-4 ####[facility] LABCLIA [id number] [place] [address] [place] Folate SerPl-mCncon 06-30-20 25 Folate [Mass/Vol] 11.9 ng/mL Normal >4.[address] [facility] Comment on above: Order Comment: Speci men Type: BLOOD SPECIMENOrdering Facility: [facility] Address: [address] [place] [address] Performed By: #### 5 0190-8, 2-9, 4-8, 2276-4 ####[facility] LABCLIA [id number] [place] [address] [place] Iron and Iron binding capaci ty panel 11-17-2024 Iron [Mass/Vol] 65 ug/dL Normal 41-186 [facility] Comment on above: Order Comment: Speci men Type: BLOOD SPECIMENOrdering Facility: [facility] Address: [address] [place] [address] Performed By: #### 5 0190-8, 2131-9, 2283-8, 2275-4 ####[facility] LABCLIA [id number] [place] [address] [place] Iron binding capacity [Mass/Vol] 341 ug/dL Normal 232-386 [facility] Comment on above: Order Comment: Speci men Type: BLOOD SPECIMENOrdering Facility: [facility] Address: [address] [place] [address] Performed By: #### 5 0190-8, 2131-9, 2283-8, 6-4 ####[facility] LABCLIA [id number] [address] [id number] [place] Iron/TIBC [Molar ratio] 19.1 % Normal 15.0-57.0 [facility] Comment on above: Order Comment: Speci men Type: BLOOD SPECIMENOrdering Facility: [facility] Address: [address] [place] [address] Performed By: #### 5 0190-8, 2131-9, 4-8, 6-4 ####[facility] LABCLIA [id number] [place] [address] [place] Vit B12 SerPl-mCncon 025 Cobalamin (Vitamin B12) [Mass/Vol] 368 pg/mL Normal 232-1245 [facility] Comment on above: Order Comment: Speci men Type: BLOOD SPECIMENOrdering Facility: [facility] Address: [address] [place] [address] Performed By: #### 5 0190-8, 2132-9, 2284-8, 2276-4 ####[facility] LABCLIA [id number] [address] [address] [place] MRI RECTUM WO/W IVCONon 10-20 MRI RECTUM WO/W IVCON * * *Final Report* * * DATE OF EXAM: Nov 14 2024 4:25PM [facility] 0754 - MRI RECTUM WO/W IVCON / [...] Unchanged 2.7 cm unilocular right ovarian cyst. IMPRESSION: Since 07/01/2024 and multiple remote exams , post treatment primary tumor assessment: Complete/near complete response. -T2 hypointense scar/fibrosis along the anterior rectal wall with no definite viable tumor. Please correlate with direct visualization and/or biopsy. mrTRG: Grade 2 - Good response Suspicious Mesorectal lymph nodes: No. Suspicious Extramesorectal lymph nodes: No. 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 11-05-2024 Albumin [Mass/Vol] 3.9 g/dL 3.2 - 5.3 g/dL [facility] ALP [Catalytic activity/Vol] 93 U/L 39 - 130 U/L [facility] ALT No additional P-5'-P [Catalytic activity/Vol] 13 U/L NINF - 31 U/L [facility] Anion gap [Moles/Vol] 12 mmol/L 5 - 15 mmol/L [facility] AST [Catalytic activity/Vol] 13 U/L NINF - 41 U/L [facility] Bilirubin [Mass/Vol] 0.8 mg/dL 0.3 - 1 .2 mg/dL [facility] Calcium [Mass/Vol] 9.6 mg/dL 8.5 - 10. 5 mg/dL [facility] Chloride [Moles/Vol] 99 mmol/L 98 - 10 9 mmol/L [facility] CO2 [Moles/Vol] 29 mmol/L 22 - 32 mmol/L [facility] Creatinine [Mass/Vol] 1.19 mg/dL High 0.40 - 1.00 mg/dL [facility] Comment on above: METHOD TRACEABLE TO IDID STANDARD EGFR Non-Race Dependent 50 Low - PINF P [facility] Comment on above: Reported eGFR is bas ed on the CKD-EPI 2020 equation that does not use a race coefficient. Glucose [Mass/Vol] 350 mg/dL High 65 - 99 mg/dL [facility] Interpretation and review of laboratory results Abnormal [facility] Potassium [Moles/Vol] 3.6 mmol/L 3.5 - 5.0 mmol/L [facility] Protein [Mass/Vol] 7 g/dL 6.0 - 8.0 g/dL [facility] Sodium [Moles/Vol] 140 mmol/L 134 - 146 mmol/L [facility] Urea nitrogen [Mass/Vol] 24 mg/dL 5 - 27 mg/dL [facility] Hemoglobin A1con 11-05-2024 Average glucose Estimated from glycated hemoglobin (Bld) [Mass/Vol] 335 mg/dL [facility] HbA1c (Bld) [Mass fraction] 13.3 % High 4.4 - 5.6 % [facility] Comment on above: ADA Guidelines Result HgbA1c Normal : less than 5.7 % Prediabetes : 5.7 % to 6.4 % Diabetes : > 6.4 % Use with caution in patients with abnormal hemoglobin variants as the half-life of red blood cells and in vivo glycation rates are affected. Interpretation and review of laboratory results Abnormal [facility] Lipid profileOrdered By: Guy Collins on 11-05-2024 Cholesterol [Mass/Vol] 165 mg/dL 150 - 200 mg/dL [facility] Cholesterol in HDL [Mass/Vol] 38 mg/dL Low 39 - PINF mg/dL [facility] Comment on above: HDL <40 mg/dL - High Risk HDL > or = 40mg/dL- Desirable HDL >60 mg/dL - Negative Risk Cholesterol in HDL [Mass/Vol] 4.3 mg/dL 1.0 - 5.0 [facility] Cholesterol in VLDL [Mass/Vol] 92 mg/dL High 0 - 30 mg/dL [facility] Interpretation and review of laboratory results Abnormal [facility] Triglyceride [Mass/Vol] 462 mg/dL High 27 - 150 mg/dL [facility] LDL (CALC) Not reported due to high Triglyceride [facility] Microalbumin - Albumin: Crea tinine Urine Ratioon 11-05-2024 Albumin DL <= 20 mg/L (U) [Mass/Vol] 107.7 mg/dL High 0.0 - 1.9 mg/dL [facility] Albumin/Creatinine DL <= 1.0 mg/L (U) [Ratio] 671.8 mg/g High 0.0 - 30.0 mg/g [facility] Creatinine (U) [Mass/Vol] 160.31 mg/dL [facility] Interpretation and review of laboratory results Abnormal [facility] Rdldl Direct Ldlon Cholesterol in LDL [Mass/Vol] 87 mg/dL NINF - 130 mg/dL [facility] Comment on above: LDL <100 mg/dL - Tian irable LDL 130-159 mg/dL - Borderline High Risk LDL >160 mg/dL - High Risk Interpretation and review of laboratory results Normal [facility] SARS/FLU A+B/RSV BY NAAT/MOL ECULAR (M4RT COLLECTION TUBE)on 11-02-2024 SARS/FLU A+B/RSV BY NAAT/MOLECULAR (M4RT COLLECTION TUBE) FLU A PCR Negative FLU B PCR Negative RSV BY PCR Negative SARS COV 2 BY PCR Not Detected Normal Not Detected [facility] Comment on above: Order Comment: The [employer] Xpress SARS-CoV-2/Flu/RSV Plus test is a rapid, [...] operators who are performing tests using either [employer] or [employer] systems and is limited to laboratories that [...] inhibition unable to be resolved with specimen repeat.Fact Sheet for Healthcare Providers:https://www.fda.gov/media/750518/downloadFact Sheet for Patients:https://www.fda.gov/media/510940/download Performed By: #### C BCA, CMP, 3040-3, 93395-6 #### [facility] ([id number]) [address] [place] [address], [place] [address] CBC W Auto Differential pane l (Bld)on 08-14-2024 Basophils (Bld) [#/Vol] 0.05 10*3/uL Normal <0.11 [facility] Comment on above: Order Comment: Speci men Type: BLOOD SPECIMENOrdering Facility: [facility] Address: [address] [place] [address] Performed By: #### 5 7021-8 ####[facility] LABCLIA [id number] [place] [address] Basophils/100 WBC (Bld) 0.8 % Normal C [facility] Comment on above: Order Comment: Speci men Type: BLOOD SPECIMENOrdering Facility: [facility] Address: [address] [place] [address] Performed By: #### 5 7021-8 ####[facility] LABCLIA [id number] [place] [address] Differential cell count method Nom (Bld) Auto Normal [facility] Comment on above: Order Comment: Speci men Type: BLOOD SPECIMENOrdering Facility: [facility] Address: [address] [place] [address] Performed By: #### 5 7021-8 ####[facility] LABCLIA [id number] [place] [address] Eosinophils (Bld) [#/Vol] 0.30 10*3/uL Normal <0.46 [facility] Comment on above: Order Comment: Speci men Type: BLOOD SPECIMENOrdering Facility: [facility] Address: [address] [place] [address] Performed By: #### 5 7021-8 ####[facility] LABCLIA [id number] [place] [address] Eosinophils/100 WBC (Bld) 5.0 % Normal [facility] Comment on above: Order Comment: Speci men Type: BLOOD SPECIMENOrdering Facility: [facility] Address: [address] [place] [address] Performed By: #### 5 7021-8 ####[facility] LABCLIA [id number] [place] [address] Erythrocyte distribution width (RBC) [Ratio] 12.7 % Normal 11.5-15.0 [facility] Comment on above: Order Comment: Speci men Type: BLOOD SPECIMENOrdering Facility: [facility] Address: [address] [place] [address] Performed By: #### 5 7021-8 ####[facility] LABCLIA [id number] [place] [address] Hematocrit (Bld) [Volume fraction] 36.0 % Normal 36.0-46.0 [facility] Comment on above: Order Comment: Speci men Type: BLOOD SPECIMENOrdering Facility: [facility] Address: [address] [place] [address] Performed By: #### 5 7021-8 ####[facility] LABCLIA [id number] [place] [address] Hemoglobin (Bld) [Mass/Vol] 12.6 g/dL Normal 11.5-15.5 [facility] Comment on above: Order Comment: Speci men Type: BLOOD SPECIMENOrdering Facility: [facility] Address: [address] [place] [address] Performed By: #### 5 7021-8 ####[facility] LABCLIA [id number] [place] [address] Immature granulocytes (Bld) [#/Vol] 0.03 10*3/uL Normal <0.10 [facility] Comment on above: Order Comment: Speci men Type: BLOOD SPECIMENOrdering Facility: [facility] Address: [address] [place] [address] Performed By: #### 5 7021-8 ####[facility] LABCLIA [id number] [place] [address] Immature granulocytes/100 WBC (Bld) 0.5 % Normal [facility] Comment on above: Order Comment: Speci men Type: BLOOD SPECIMENOrdering Facility: [facility] Address: [address] [place] [address] Performed By: #### 5 7021-8 ####[facility] LABCLIA [id number] [place] [address] Lymphocytes (Bld) [#/Vol] 0.46 10*3/uL Low 1.00-4.00 [facility] Comment on above: Order Comment: Speci men Type: BLOOD SPECIMENOrdering Facility: [facility] Address: [address] [place] [address] Performed By: #### 5 7021-8 ####[facility] LABCLIA [id number] [place] [address] Lymphocytes/100 WBC (Bld) 7.7 % Normal [facility] Comment on above: Order Comment: Speci men Type: BLOOD SPECIMENOrdering Facility: [facility] Address: [address] [place] [address] Performed By: #### 5 7021-8 ####[facility] LABCLIA [id number] [place] [address] MCH (RBC) [Entitic mass] 28.1 pg Normal 26.0-34.0 [facility] Comment on above: Order Comment: Speci men Type: BLOOD SPECIMENOrdering Facility: [facility] Address: [address] [place] [address] Performed By: #### 5 7021-8 ####[facility] LABCLIA [id number] [place] [address] MCHC (RBC) [Mass/Vol] 35.0 g/dL Normal 30.5-36.0 [facility] Comment on above: Order Comment: Speci men Type: BLOOD SPECIMENOrdering Facility: [facility] Address: [address] [place] [address] Performed By: #### 5 7021-8 ####[facility] LABCLIA [id number] [place] [address] MCV (RBC) [Entitic vol] 80.2 fL Normal 80.0-100.0 C [facility] Comment on above: Order Comment: Speci men Type: BLOOD SPECIMENOrdering Facility: [facility] Address: [address] [place] [address] Performed By: #### 5 7021-8 ####[facility] LABCLIA [id number] [place] [address] Monocytes (Bld) [#/Vol] 0.40 10*3/uL Normal <0.87 [facility] Comment on above: Order Comment: Speci men Type: BLOOD SPECIMENOrdering Facility: [facility] Address: [address] [place] [address] Performed By: #### 5 7021-8 ####[facility] LABCLIA [id number] [place] [address] Monocytes/100 WBC (Bld) 6.7 % Normal C [facility] Comment on above: Order Comment: Speci men Type: BLOOD SPECIMENOrdering Facility: [facility] Address: [address] [place] [address] Performed By: #### 5 7021-8 ####[facility] LABCLIA [id number] [place] [address] Neutrophils (Bld) [#/Vol] 4.72 10*3/uL Normal 1.45-7.50 [facility] Comment on above: Order Comment: Speci men Type: BLOOD SPECIMENOrdering Facility: [facility] Address: [address] [place] [address] Performed By: #### 5 7021-8 ####[facility] LABCLIA [id number] [place] [address] Neutrophils/100 WBC (Bld) 79.3 % Normal [facility] Comment on above: Order Comment: Speci men Type: BLOOD SPECIMENOrdering Facility: [facility] Address: [address] [place] [address] Performed By: #### 5 7021-8 ####[facility] LABCLIA [id number] [place] [address] Nucleated RBC (Bld) [#/Vol] 10*3/uL Normal <0.01 [facility] Comment on above: Order Comment: Speci men Type: BLOOD SPECIMENOrdering Facility: [facility] Address: [address] [place] [address] Performed By: #### 5 7021-8 ####[facility] LABCLIA [id number] [place] [address] Nucleated RBC/100 WBC (Bld) [Ratio] 0.0 /100 WBC Normal [facility] Comment on above: Order Comment: Speci men Type: BLOOD SPECIMENOrdering Facility: [facility] Address: [address] [place] [address] Performed By: #### 5 7021-8 ####[facility] LABCLIA [id number] [place] [address] Platelet mean volume (Bld) [Entitic vol] 8.9 fL Low 9.0-12.7 [facility] Comment on above: Order Comment: Speci men Type: BLOOD SPECIMENOrdering Facility: [facility] Address: [address] [place] [address] Performed By: #### 5 7021-8 ####[facility] LABIA [id number] [place] [address] Platelets (Bld) [#/Vol] 296 10*3/uL Normal 150-400 [facility] Comment on above: Order Comment: Speci men Type: BLOOD SPECIMENOrdering Facility: [facility] Address: [address] [place] [address] Performed By: #### 5 7021-8 ####[facility] LABCLIA [id number] [place] [address] RBC (Bld) [#/Vol] 4.49 10*6/uL Normal 3.90-5.20 [facility] Comment on above: Order Comment: Speci men Type: BLOOD SPECIMENOrdering Facility: [facility] Address: [address] [place] [address] Performed By: #### 5 7021-8 ####[facility] LABIA [id number] [place] [address] WBC (Bld) [#/Vol] 5.96 10*3/uL Normal 3.70-11.00 [facility] Comment on above: Order Comment: Speci men Type: BLOOD SPECIMENOrdering Facility: [facility] Address: [address] [place] [address] Performed By: #### 5 7021-8 ####[facility] LABIA [id number] [place] [address] CEA SerPl-ncon 08-14-2024 Carcinoembryonic Ag [Mass/Vol] 2.8 ng/mL Normal <=2.9 [facility] Comment on above: Order Comment: Speci men Type: BLOOD SPECIMENOrdering Facility: [facility] Address: [address] [place] [address] Result Comment: Carc inoembryonic antigen test is used as an aid in monitoring response to treatment or recurrence in patients with established colorectal, breast, lung, prostatic, pancreatic, and ovarian carcinomas. Clinical correlation is required.The Carcinoembryonic antigen test was performed using the [employer] DXI paramagnetic particle chemiluminescent immunoassay method. Results obtained with different assay methods or kits cannot be used interchangeably. Performed By: #### 2 039-6 ####[facility] LABCLIA [id number] [address] CNOVSPon 08-14-2024 CNOVSP Normal [facility] Comprehensive metabolic 2000 panelon 08-14-2024 Albumin [Mass/Vol] 4.0 g/dL Normal 3.9-4.9 [facility] Comment on above: Order Comment: Speci men Type: BLOOD SPECIMENOrdering Facility: [facility] Address: [address] [place] [address] Performed By: #### 2 4323-8 ####[facility] LABCLIA [id number] [place] [address] ALP [Catalytic activity/Vol] 137 U/L High 34-123 [facility] Comment on above: Order Comment: Speci men Type: BLOOD SPECIMENOrdering Facility: [facility] Address: [address] [place] [address] Performed By: #### 2 4323-8 ####[facility] LABCLIA [id number] [place] [address] ALT [Catalytic activity/Vol] 12 U/L Normal 7-38 [facility] Comment on above: Order Comment: Speci men Type: BLOOD SPECIMENOrdering Facility: [facility] Address: [address] [place] [address] Performed By: #### 2 4323-8 ####[facility] LABCLIA [id number] [place] [address] Anion gap [Moles/Vol] 14 mmol/L Normal 8-15 [facility] Comment on above: Order Comment: Speci men Type: BLOOD SPECIMENOrdering Facility: [facility] Address: [address] [place], [place] [address] Performed By: #### 2 4323-8 ####[facility] LABCLIA [id number] [place] [address] AST [Catalytic activity/Vol] 11 U/L Low 13-35 [facility] Comment on above: Order Comment: Speci men Type: BLOOD SPECIMENOrdering Facility: [facility] Address: [address] [place] [address] Performed By: #### 2 4323-8 ####[facility] LABCLIA [id number] [place] [address] Bilirubin [Mass/Vol] 0.8 mg/dL Normal 0.2-1.3 [facility] Comment on above: Order Comment: Speci men Type: BLOOD SPECIMENOrdering Facility: [facility] Address: [address] [place] [address] Performed By: #### 2 4323-8 ####[facility] LABCLIA [id number] [place] [address] Calcium [Mass/Vol] 10.0 mg/dL Normal 8.5-10.2 [facility] Comment on above: Order Comment: Speci men Type: BLOOD SPECIMENOrdering Facility: [facility] Address: [address] [place] [address] Performed By: #### 2 4323-8 ####[facility] LABCLIA [id number] [place] [address] Chloride [Moles/Vol] 96 mmol/L Low 98-107 [facility] Comment on above: Order Comment: Speci men Type: BLOOD SPECIMENOrdering Facility: [facility] Address: [address] [place] [address] Performed By: #### 2 4323-8 ####[facility] LABCLIA [id number] [place] [address] CO2 [Moles/Vol] 24 mmol/L Normal 22-30 [facility] Comment on above: Order Comment: Speci men Type: BLOOD SPECIMENOrdering Facility: [facility] Address: [address] [place] [address] Performed By: #### 2 4323-8 ####[facility] LABCLIA [id number] [place] [address] Creatinine [Mass/Vol] 0.91 mg/dL Normal 0.58-0.96 [facility] Comment on above: Order Comment: Milady mason Type: BLOOD SPECIMENOrdering Facility: [facility] Address: [address] [id number] Performed By: #### 2 4323-8 ####[facility] LABCLIA [id number] [place] [address] Creatinine and Glomerular filtration rate.predicted panel (S/P/Bld) 70 mL/min/1.73m??? Normal >=60 [facility] Comment on above: Order Comment: Specmildred men Type: BLOOD SPECIMENOrdering Facility: [facility] Address: [address] [place] [address] Result Comment: Lisbeth mated Glomerular Filtration Rate (eGFR) is calculated using the 2020 CKD-EPI creatinine equation. This equation utilizes serum creatinine, sex, and age as parameters. The creatinine assay has traceable calibration to isotope dilution-mass spectrometry. Refer to KDIGO guidelines for clinical interpretation. In patients with unstable renal function, e.g. those with acute kidney injury, the eGFR may not accurately reflect actual GFR. Performed By: #### 2 4323-8 ####[facility] LABCLIA [id number] [place] [address] Glucose [Mass/Vol] 504 mg/dL High 74-99 [facility] Comment on above: Order Comment: Milady mason Type: BLOOD SPECIMENOrdering Facility: [facility] Address: [address] [id number] Result Comment: The [place] [employer] (ADA) provides guidance for cutoff values for fasting glucose and random glucose. The ADA defines fasting as no caloric intake for at least 8 hours. Fasting plasma glucose results between 100 to 125 mg/dL indicate increased risk for diabetes (prediabetes).Fasting plasma glucose results greater than or equal to 126 mg/dL meet the criteria for diagnosis of diabetes. In the absence of unequivocal hyperglycemia, results should be confirmed by repeat testing. In a patient with classic symptoms of hyperglycemia or hyperglycemic crisis, random plasma glucose results greater than or equal to 200 mg/dL meet the criteria for diagnosis of diabetes.Reference: Standards of Medical Care in Diabetes 2016, [place] [employer]. Diabetes Care. 2016.39(Suppl 1). Performed By: #### 2 4323-8 ####[facility] LABCLIA [id number] [place] [address] Potassium [Moles/Vol] 4.4 mmol/L Normal 3.7-5.1 [facility] Comment on above: Order Comment: Speci men Type: BLOOD SPECIMENOrdering Facility: [facility] Address: [address] [place] [address] Performed By: #### 2 4323-8 ####[facility] LABCLIA [id number] [place] [address] Protein [Mass/Vol] 6.9 g/dL Normal 6.3-8.0 [facility] Comment on above: Order Comment: Speci men Type: BLOOD SPECIMENOrdering Facility: [facility] Address: [address] [place] [address] Performed By: #### 2 4323-8 ####[facility] LABCLIA [id number] [place] [address] Sodium [Moles/Vol] 134 mmol/L Low 136-144 [facility] Comment on above: Order Comment: Speci men Type: BLOOD SPECIMENOrdering Facility: [facility] Address: [address] [place] [address] Performed By: #### 2 4323-8 ####[facility] LABCLIA [id number] [place] [address] Urea nitrogen [Mass/Vol] 14 mg/dL Normal 7-21 [facility] Comment on above: Order Comment: Speci men Type: BLOOD SPECIMENOrdering Facility: [facility] Address: [address] [place] [address] Performed By: #### 2 4323-8 ####[facility] LABCLIA [id number] [place] [address] CNPNon 08-08-2024 CNPN Normal [facility] CNPNon 07-30-2024 CNPN Normal [facility] ANES POSTPROC EVALon 025 ANES POSTPROC EVAL HNO ID: [id number] Author: CARIDAD JIMENEZ DO Service: Pain Management Author Type: Anesthesiologist Type: Anesthesia Postprocedure Evaluation Filed: 07/29/2024 13:30 Note Text: POST ANESTHESIA EVALUATION NOTE : 1955 Procedure Summary Date: 07/29/24 Room / Location: [facility] Endoscopy - ENDO Anesthesia Start: 1300 Anesthesia Stop: 1320 Procedure: SIGMOIDOSCOPY Diagnosis: Rectal cancer (HCC) (High risk colon cancer surveillance: Personal history of rectal cancer) Scheduled Providers: Evans Zurita MD; Stephanie Holm APRN.[employer]; Caridad Jimenez DO Responsible Provider: Caridad Jimenez DO Anesthesia Type: MAC ASA Status: 3 Anesthesia Type: MAC Last Vitals Vitals Value Taken Time BP 129/78 07/29/24 1319 Temp 36.5 ?C (97.7 ?F) 07/29/24 1319 Pulse 94 07/29/24 1329 Resp 17 07/29/24 1329 SpO2 100 % 07/29/24 1329 Vitals shown include unfiled device data. Post Anesthesia Patient Status Patient Evaluation: PACU. PACU/ICU Patient Condition: stable. Anticipated Disposition: phase 2 then home. Neurological Status: aware and responsive. Pulmonary Status: breathing comfortably on room air Airway Control: returned to baseline unsupported. Cardiovascular Status: stable. Pain Management: clinically adequate Postoperative Hydration: acceptable. Intraoperative Events: no significant anesthesia events Post Operative Nausea/Vomiting Status: no significant post operative nausea or vomiting Recommendation: continue current plan of care. Anesthesia Observations No Documentation SIGNATURE: Caridad Jimenez DO PATIENT NAME: Parvez Riggins DATE: July 29, 2024 TIME: 1:29 PM CSN: [id number] Normal [facility] ANES PRE-OPon 07-29-2024 ANES PRE-OP HNO ID: [id number] Author: CARIDAD JIMENEZ DO Service: Pain Management Author Type: Anesthesiologist Type: Anesthesia Preprocedure Evaluation Filed: 07/29/2024 12:37 Note Text: ANESTHESIOLOGY DAY OF SURGERY NOTE : 1955 Procedure Information Date/Time: 07/29/24 1130 Scheduled providers: Evans Zurita MD; Stephanie Holm APRN.[employer]; Caridad Jimenez DO Procedure: SIGMOIDOSCOPY Location: [facility] Endoscopy - ENDO Estimated body mass index is 33.23 kg/m? as calculated from the following: Height as of 07/08/24: 172 cm (5' 7.72 ). Weight as of 07/08/24: 98.3 kg (216 lb 11.4 oz). Most recent hematocrit and potassium results: Hematocrit 34.6 07/08/2024 Potassium 4.5 07/08/2024 Relevant Problems CARDIO (+) Hypertension -RENAL (+) Stage 3a chronic kidney disease (HCC) Endocrinology (+) Diabetes (HCC) Oncology (+) Rectal cancer (HCC) Patient is DNR. Patient ok with periprocedural full code I - PHYSICAL EVALUATION AIRWAY Patient intubated: No. Tracheostomy tube not present Mallampati: II. TM distance: >3 FB. Neck ROM: full ROM without neurological symptoms. Mouth opening: adequate. Short neck: no. Thick neck: no Hewitt present: no Lip Bite Test: I Microretrognathia/Gonzalo ronagthia/Recessed Chin: No DENTAL Dental findings: teeth intact. II - ANESTHESIA PLAN ASA Score: 3 Anesthetic Plan: MAC The patient is not a current smoker. NPO Status: adequate Beta Enio Administration of chronic beta enio medication not planned. Monitoring Plan Monitoring plan: standard ASA. Post Procedure Analgesic Plan Postoperative analgesic plan: other. Informed Consent Anesthetic risks, benefits, alternatives, personnel and consent discussed: yes. Patient / Responsible Constitution Party agrees to proceed: yes Patient / Surrogate agrees to blood products: Yes DNR status reviewed with patient and/or family prior to surgery. patient elects to suspend DNR status in the perioperative setting (Full Code). Significant changes in the patient condition since the History and Physical, not otherwise documented in primary service progress note: no. Potential Anesthesia issues that may suggest increased risk of complications or contraindication to planned procedure: none. Vitals Value Taken Time BP 180/92 07/29/24 1201 Pulse 87 07/29/24 1201 Resp 23 07/29/24 1201 Temp 36.1 ?C (97 ?F) 07/29/24 1201 SpO2 100 % 07/29/24 1201 Outpatient Medications as of 07/29/2024 Medication Sig clobetasol (TEMOVATE) 0.05 % cream Apply 1 Application to affected area two times a day. metoprolol tartrate, short acting, (LOPRESSOR) 50 mg tablet Take 50 mg by mouth two times a day. aspirin, enteric coated (ASPIRIN, ENTERIC COATED) 81 mg EC tablet Take 81 mg by mouth every other day. ferrous sulfate 325 mg (65 mg iron) tablet Take 325 mg by mouth every 48 hours. insulin glargine (LANTUS SOLOSTAR U-100 INSULIN) 100 unit/mL (3 mL) Inject 80 Units subcutaneously daily at bedtime. irbesartan (AVAPRO) 75 mg tablet Take 75 mg by mouth daily at bedtime. insulin lispro (HUMALOG KWIKPEN INSULIN) 100 unit/mL inpn Inject subcutaneously as directed. amLODIPine (NORVASC) 10 mg tablet Take 10 mg by mouth once daily. neomycin 500 mg tablet Take 2 tablets by mouth at 6 pm, again at 7 pm and at 11 pm the evening prior to surgery metroNIDAZOLE (FLAGYL) 500 mg tablet Take 1 tablet by mouth at 6 pm, another at 7 pm and again at 11 pm, the evening prior to surgery ondansetron (ZOFRAN) 8 mg tablet Take 1 tablet by mouth every 8 hours as needed for nausea/vomiting. prochlorperazine (COMPAZINE) 10 mg tablet Take 1 tablet by mouth every 6 hours as needed. capecitabine (XELODA) 500 mg tablet Take 5 tablets (2,500 mg) by mouth two times a day. 14 days on 7 days off (Patient not taking: Reported on 07/29/2024) prochlorperazine (COMPAZINE) 10 mg tablet Take 1 tablet by mouth every 6 hours as needed. polyethylene glycol 3350 17 gram packet Take 17 g by mouth. semaglutide (OZEMPIC) 1 mg/dose (2 mg/1.5 mL) pen Inject 1 mg subcutaneously one time a week. atorvastatin (LIPITOR) 40 mg tablet Take 40 mg by mouth daily at bedtime. (Patient not taking: Reported on 07/29/2024) Mirtazapine (REMERON) 7.5 mg tablet Take 7.5 mg by mouth once daily. JANUMET XR 50-1,000 mg TM24 Take 1 tablet by mouth every afternoon. (Patient not taking: Reported on 07/29/2024) spironolactone (ALDACTONE) 25 mg tablet Take 50 mg by mouth every morning. (Patient not taking: Reported on 07/29/2024) cannabidiol, CBD, (CANNABIDIOL ORAL) Take 10 mg by mouth daily at bedtime. ondansetron (ZOFRAN) 8 mg tablet Take 1 tablet by mouth every 8 hours as needed for nausea/vomiting. busPIRone (BUSPAR) 10 mg tablet Take by mouth. meclizine (ANTIVERT) 25 mg tab Take by mouth at bedtime as needed. nystatin (MYCOSTATIN) ointment Apply 1 Application to affected area. Acetaminophen 500 mg cap Take 500 mg by mouth as needed. No (more content not included)... Normal [facility] Flexible Sigmoidoscopyon Flexible sigmoidoscopy [facility] Gastrointestinal Endoscopy Patient Name: Parvez Riggins Procedure Date: 07/29/2024 12:39 PM Date of : 1955 Admit Type: Outpatient Age: 68 Room: [address] [place] [address] Gender: Female Note Status: Finalized Attending MD: Evans Zruita MD, [id number] Procedure: Flexible Sigmoidoscopy Indications: High risk colon cancer surveillance: Personal history of rectal cancer Providers: Evans Zurita MD, Corine Watson, CIPRIANO, Jaylin Oneil RN (Assisting Nurse), claudia Donaldson, CIPRIANO (assisting nurse orient) Patient Profile: Last Colonoscopy: within the past year. Referring Physician: Evans Zurita MD (Referring MD) Medicines: Monitored Anesthesia Care [...] passed under direct vision. The PCF [id number] was introduced through the anus and advanced [...] post-treatment MRI Procedure Code(s): --- Professional --- 09525, Sigmoidoscopy, flexible; diagnostic, including collection of specimen(s) by brushing or washing, when performed (separate procedure) Diagnosis Code(s): --- Professional --- Z85.048, Personal history of other malignant neoplasm of rectum, rectosigmoid junction, and anus CPT copyright 2020 [place] [employer]. All rights reserved. The codes documented in this report are preliminary and upon agricultural pilot review may be revised to meet current compliance requirements. Attending Participation: I personally performed the entire procedure. Scope In: 1:05:35 PM Scope Out: 1:13:57 PM MD Evans Vallejo MD 07/29/2024 1:19:20 PM This report has been signed electronically by Evans Zurita MD Number of Addenda: 0 Note Initiated On: 07/29/2024 12:39 PM Estimated Blood Loss: Estimated blood loss: none. Normal [facility] Flexible sigmoidoscopy study on 07-29-2024 [facility] Gastrointestinal Endoscopy Patient Name: Parvez Riggins Procedure Date: 07/29/2024 12:39 PM Date of : 1955 Admit Type: Outpatient Age: 68 Room: [address] [address] Gender: Female Note Status: Finalized Attending MD: Evans Zurita MD, [id number] Procedure: Flexible Sigmoidoscopy Indications: High risk colon cancer surveillance: Personal history of rectal cancer Providers: Evans uZrita MD, Corine Watson, CIPRIANO, Jaylin Oneil RN (Assisting Nurse), claudia Donaldson RN (assisting nurse orient) Patient Profile: Last Colonoscopy: within the past year. Referring Physician: Evans Zurita MD (Referring MD) Medicines: Monitored Anesthesia Care [...] passed under direct vision. The PCF [id number] was introduced through the anus and advanced [...] post-treatment MRI Procedure Code(s): --- Professional --- 73506, Sigmoidoscopy, flexible; diagnostic, including collection of specimen(s) by brushing or washing, when performed (separate procedure) Diagnosis Code(s): --- Professional --- Z85.048, Personal history of other malignant neoplasm of rectum, rectosigmoid junction, and anus CPT copyright 2020 [place] [employer]. All rights reserved. The codes documented in this report are preliminary and upon agricultural pilot review may be revised to meet current compliance requirements. Attending Participation: I personally performed the entire procedure. Scope In: 1:05:35 PM Scope Out: 1:13:57 PM MD Evans Vallejo MD 07/29/2024 1:19:20 PM This report has been signed electronically by Evans Zurita MD Number of Addenda: 0 Note Initiated On: 07/29/2024 12:39 PM Estimated Blood Loss: Estimated blood loss: none. PROVATION [facility] Radiology Study observation (narrative) Risa [facility] GLUCOSE, BLOOD (POC)on 07-29 Glucose [Mass/Vol] 130 mg/dL Abnormal 74 - 99 mg/dL [facility] Comment on above: Location:[facility], [address] [place] [address], [facility] The Accu-Chek Inform II glucose meter [...] blood gas instrument) in the above situations. Interpretation and review of laboratory results Abnormal [facility] Glucose [Mass/Vol] 153 mg/dL Abnormal 74 - 99 mg/dL [facility] Comment on above: Location:[facility], [address] [place] [address] The Accu-Chek Inform II glucose meter has [...] blood gas instrument) in the above situations. Interpretation and review of laboratory results Abnormal [facility] HISTORY PHYSICALon HISTORY PHYSICAL HNO ID: [id number] Author: EVANS ZURITA MD Service: Colorectal Author Type: Physician Type: H&P Filed: 07/29/2024 12:58 Note Text: PROCEDURAL SEDATION HISTORY AND PHYSICAL EXAM SERVICE DATE: 07/29/2024 SERVICE TIME: 12:58 PM Subjective HPI: This is a 68 year old female who presents with hx of rectal cancer PAST ANESTHESIA HISTORY: No history of adverse event PAST MEDICAL HISTORY Diagnosis Date Anxiety Carcinoma of vulva (HCC) Chronic back pain COVID-19 Depression Diabetes (HCC) GERD (gastroesophageal reflux disease) HPV in female Hypertension Ovarian cyst Panic disorder PONV (postoperative nausea and vomiting) Rectal bleeding Rectal cancer (HCC) Rectal mass Sleep apnea Vulval lesion PAST SURGICAL HISTORY Procedure Laterality Date ARTHROSCOPY KNEE DIAGNOSTIC W/WO SYNOVIAL BX SPX Left x2 ARTHRP KNE CONDYLEANDPLATU MEDIALANDLAT COMPARTMENTS Left BACK SURGERY HX CHOLECYSTECTOMY HX COLONOSCOPY EGD W/O BRSH SPEC VARICIES INJ LIGATE FALLOPIAN TUBE NASAL ENDOS,DIAG,UNI/ BILATERAL PAST SURGICAL HISTORY OF Dissection of lymph node inguinal femoral PAST SURGICAL HISTORY OF Revision of Episiotomy PAST SURGICAL HISTORY OF 2019 Right Hemivulvectomy/Bilate ral inguinal sentinal lymp node dissection TOTAL KNEE REPLACEMENT Left TUBAL LIGATION Prior to Admission medications as of 07/29/24 1201 Medication Sig Last Dose Taking clobetasol (TEMOVATE) 0.05 % cream Apply 1 Application to affected area two times a day. 07/28/2024 Yes metoprolol tartrate, short acting, (LOPRESSOR) 50 mg tablet Take 50 mg by mouth two times a day. 07/28/2024 at 3:00 PM Yes aspirin, enteric coated (ASPIRIN, ENTERIC COATED) 81 mg EC tablet Take 81 mg by mouth every other day. Past Week Yes ferrous sulfate 325 mg (65 mg iron) tablet Take 325 mg by mouth every 48 hours. 07/26/2024 Yes insulin glargine (LANTUS SOLOSTAR U-100 INSULIN) 100 unit/mL (3 mL) Inject 80 Units subcutaneously daily at bedtime. 07/28/2024 Bedtime Yes irbesartan (AVAPRO) 75 mg tablet Take 75 mg by mouth daily at bedtime. 07/28/2024 at 3:00 PM Yes insulin lispro (HUMALOG KWIKPEN INSULIN) 100 unit/mL inpn Inject subcutaneously as directed. 07/28/2024 Evening Yes amLODIPine (NORVASC) 10 mg tablet Take 10 mg by mouth once daily. 07/28/2024 Yes neomycin 500 mg tablet Take 2 tablets by mouth at 6 pm, again at 7 pm and at 11 pm the evening prior to surgery metroNIDAZOLE (FLAGYL) 500 mg tablet Take 1 tablet by mouth at 6 pm, another at 7 pm and again at 11 pm, the evening prior to surgery Unknown ondansetron (ZOFRAN) 8 mg tablet Take 1 tablet by mouth every 8 hours as needed for nausea/vomiting. Unknown prochlorperazine (COMPAZINE) 10 mg tablet Take 1 tablet by mouth every 6 hours as needed. Unknown capecitabine (XELODA) 500 mg tablet Take 5 tablets (2,500 mg) by mouth two times a day. 14 days on 7 days off Patient not taking: Reported on 07/29/2024 Not Taking prochlorperazine (COMPAZINE) 10 mg tablet Take 1 tablet by mouth every 6 hours as needed. Unknown polyethylene glycol 3350 17 gram packet Take 17 g by mouth. Unknown semaglutide (OZEMPIC) 1 mg/dose (2 mg/1.5 mL) pen Inject 1 mg subcutaneously one time a week. 07/18/2024 atorvastatin (LIPITOR) 40 mg tablet Take 40 mg by mouth daily at bedtime. Patient not taking: Reported on 07/29/2024 Not Taking Mirtazapine (REMERON) 7.5 mg tablet Take 7.5 mg by mouth once daily. 07/27/2024 JANUMET XR 50-1,000 mg TM24 Take 1 tablet by mouth every afternoon. Patient not taking: Reported on 07/29/2024 Not Taking spironolactone (ALDACTONE) 25 mg tablet Take 50 mg by mouth every morning. Patient not taking: Reported on 07/29/2024 Not Taking cannabidiol, CBD, (CANNABIDIOL ORAL) Take 10 mg by mouth daily at bedtime. Unknown ondansetron (ZOFRAN) 8 mg tablet Take 1 tablet by mouth every 8 hours as needed for nausea/vomiting. Unknown busPIRone (BUSPAR) 10 mg tablet Take by mouth. Unknown meclizine (ANTIVERT) 25 mg tab Take by mouth at bedtime as needed. 07/27/2024 nystatin (MYCOSTATIN) ointment Apply 1 Application to affected area. Unknown Acetaminophen 500 mg cap Take 500 mg by mouth as needed. 07/27/2024 ALLERGIES Allergen Reactions Codeine Other: See Comments Nausea Tramadol Vomiting Objective PHYSICAL EXAM: The remainder of the physical exam is noncontributory. AIRWAY: Airway Visualization of Uvula: Yes Mouth opening greater than 2 fingerbreadths: Yes Neck Full Range of Motion: Yes LUNGS: Lungs clear to auscultation CARDIAC: Regular rhythm, Assessment/Plan ASA Class: ASA Class: Patient with mild systemic disease Active Problems: * No active hospital problems. * Resolved Problems: * No resolved hospital problems. * Exogenous Class 1 Obesity Medication and Non-Pharmacologic VTE Prophylaxis/Anticoagu lants VTE Prophylaxis: VTE prophylaxis appropriate Provisional Diagnosis/Treatment Plan: post treatment assessment of rectal cancer. Flexible (more content not included)... Normal [facility] CNPNon 07-24-2024 CNPN Normal [facility] CNPNon 07-23-2024 CNPN Normal [facility] CNCNPATEDon 07-22-2024 CNCNPATED Normal [facility] CNPNon 07-14-2024 CNPN Normal [facility] CNPNon 07-11-2024 CNPN Normal [facility] CNPNon 07-10-2024 CNPN Normal [facility] CNPNon 07-09-2024 CNPN Normal [facility] BASIC METABOLIC PANLon 07-08 Anion gap [Moles/Vol] 8 mmol/L Normal 5-15 [facility] Comment on above: Performed By: #### C BCA CMP, 3039-07, 08038-2 #### [facility] ([id number]) [address] [place] [address] Calcium [Mass/Vol] 9.2 mg/dL Normal 8.5-10.5 [facility] Comment on above: Performed By: #### C BCA, CMP, 3039-07, 42153-0 #### [facility] ([id number]) [address] [place] [address] Chloride [Moles/Vol] 100 mmol/L Normal 98-109 [facility] Comment on above: Performed By: #### C BCA, CMP, 3039-07, 99126-0 #### [facility] ([id number]) [address] [place] [address] 33826 CO2 [Moles/Vol] 24 mmol/L Normal 22-32 [facility] Comment on above: Performed By: #### C BCA, CMP, 3, 96827-9 #### [facility] ([id number]) [address] [place] [address] [place] [address] Creatinine [Mass/Vol] 0.94 mg/dL Normal 0.40-1.00 [facility] Comment on above: Result Comment: METH OD TRACEABLE TO IDMS STANDARD Performed By: #### C PHYLLIS QURESHI, 3039-07, #### [facility] ([id number]) [address] [place] [address] GFR/1.73 sq M.predicted among non-blacks MDRD (S/P/Bld) [Vol rate/Area] 67 mL/min/{1.73_m2} Normal >59 [facility] Comment on above: Result Comment: Reported eGFR is based on the CKD-EPI 2020 equation that does not use a race coefficient. Performed By: #### C PHYLLIS QURESHI, 3039-07, #### [facility] ([id number]) [address] [place] [address]13 Glucose [Mass/Vol] 328 mg/dL High 65-99 [facility] Comment on above: Performed By: #### C PHYLLIS QURESHI, 3039-07, #### [facility] ([id number]) [address] [place] [address]50 Potassium [Moles/Vol] 3.8 mmol/L Normal 3.5-5.0 [facility] Comment on above: Performed By: #### C PHYLLIS QURESHI, 3039-07, #### [facility] ([id number]) [address] [place] [address]1479 Sodium [Moles/Vol] 132 mmol/L Low 134-146 [facility] Comment on above: Performed By: #### C PHYLLIS QURESHI, 3039-07, #### [facility] ([id number]) [address] [place] [address] 45461 Urea nitrogen [Mass/Vol] 14 mg/dL Normal 5-27 [facility] Comment on above: Performed By: #### C BCA, CMP, 3, 28472-6 #### [facility] ([id number]) [address] [place] [address]6584 CBC AND AUTO DIFFon 07-08-19 25 ABSOLUTE BASOPHIL 0.1 X10E9/L Normal 0.0-0.2 [facility] Comment on above: Performed By: #### C BCA, CMP, 3039-07, #### [facility] ([id number]) [address] [place] [address]852 ABSOLUTE NEUTROPHIL 4.8 X10E9/L Normal 1.5-6.6 [facility] Comment on above: Performed By: #### C BCA, CMP, 3039-07, #### [facility] ([id number]) [address] [place] [address] 21044 Basophils/100 WBC (Bld) 1.3 % Normal [facility] Comment on above: Performed By: #### C TITUS, CMP, 3039-07, #### [facility] ([id number]) [address] [place] [address] 65966 Eosinophils (Bld) [#/Vol] 0.3 10*3/uL Normal 0.0-0.4 [facility] Comment on above: Performed By: #### C BCA, CMP, 3039-07, #### [facility] ([id number]) [address] [place] [address] 57212 Eosinophils/100 WBC (Bld) 4.4 % Normal [facility] Comment on above: Performed By: #### C BCA, CMP, 3, #### [facility] ([id number]) [address] [place] [address] 26437 Erythrocyte distribution width (RBC) [Ratio] 14.6 % Normal 11.5-15.0 [facility] Comment on above: Performed By: #### C PHYLLIS QURESHI, 3039-07, #### [facility] ([id number]) [address] [place] [address]147 Hematocrit (Bld) [Volume fraction] 34.0 % Low 35-47 [facility] Comment on above: Performed By: #### Elva QURESHI CMP, 3039-07, #### [facility] ([id number]) [address] [place] [address] 89141 Hemoglobin (Bld) [Mass/Vol] 12.0 g/dL Normal 11.7-15.5 [facility] Comment on above: Performed By: #### Elva QURESHI CMP, 3039-07, #### [facility] ([id number]) [address] [place] [address] 19344 Lymphocytes (Bld) [#/Vol] 0.5 10*3/uL Low 1.0-3.5 [facility] Comment on above: Performed By: #### Elva QURESHI [facility], 3039-07, #### [facility] [facility] ([id number]) [address] [place] [address] Lymphocytes/100 WBC (Bld) 8.4 % Normal [facility] Comment on above: Performed By: #### Elva QURESHI CMP, 3039-07, #### [facility] ([id number]) [address] [place] [address]603 MCH (RBC) [Entitic mass] 29.1 pg Normal 27-34 [facility] Comment on above: Performed By: #### Elva QURESHI CMP, 3039-07, #### [facility] ([id number]) [address] [place] [address]2397 MCHC (RBC) [Mass/Vol] 35.4 g/dL Normal 32-36 [facility] Comment on above: Performed By: #### C PHYLLIS QURESHI, 3039-07, #### [facility] ([id number]) [address] [place] [address] 07526 MCV (RBC) [Entitic vol] 82 fL Normal 80-100 [facility] Comment on above: Performed By: #### Elva QURESHI CMP, 3039-07, #### [facility] ([id number]) [address] [place] [address] 81371 Monocytes (Bld) [#/Vol] 0.6 10*3/uL Normal 0-0.9 [facility] Comment on above: Performed By: #### Elva QURESHI CMP, 3039-07, #### [facility] ([id number]) [address] [place] [address] 89031 Monocytes/100 WBC (Bld) 9.9 % Normal [facility] Comment on above: Performed By: #### Elva QURESHI CMP, 3039-07, #### [facility] ([id number]) [address] [place] [address] 81375 Neutrophils/100 WBC (Bld) 76.0 % Normal [facility] Comment on above: Performed By: #### Elva QURESHI CMP, 3039-07, #### [facility] ([id number]) [address] [place] [address] 20929 Platelet mean volume (Bld) [Entitic vol] 6.5 fL Low 7-12 [facility] Comment on above: Performed By: #### Elva QURESHI CMP, 3039-07, #### [facility] ([id number]) [address] [place] [address] 50564 Platelets (Bld) [#/Vol] 385 10*3/uL Normal 150-450 [facility] Comment on above: Performed By: #### C TITUS CMP, 0-3, 62830-4 #### [facility] ([id number]) [address] [place] [address] 84602 RBC COUNT 4.13 X10E12/L Normal 3.80-5.20 [facility] Comment on above: Performed By: #### C TITUS, CMP, 3, 29351-8 #### [facility] ([id number]) [address] [place] [address] 59180 WBC (Bld) [#/Vol] 6.3 10*3/uL Normal 4.0-11.0 [facility] Comment on above: Performed By: #### C TITUS, CMP, 3039-07, 46030-6 #### [facility] ([id number]) [address] [place] [address] 63839 CBC W Auto Differential pane l (Bld)on 07-08-2024 Basophils (Bld) [#/Vol] 0.05 10*3/uL Normal <0.11 [facility] Comment on above: Order Comment: Speci men Type: BLOOD SPECIMENOrdering Facility: [facility] Address: [address] [place] [address] Performed By: #### 5 7021-8 ####[facility] LABCLIA [id number] [place] [address] Basophils/100 WBC (Bld) 0.9 % Normal [facility] Comment on above: Order Comment: Speci men Type: BLOOD SPECIMENOrdering Facility: [facility] Address: [address] [place] [address] Performed By: #### 5 7021-8 ####[facility] LABCLIA [id number] [place] [address] Differential cell count method Nom (Bld) Auto Normal [facility] Comment on above: Order Comment: Speci men Type: BLOOD SPECIMENOrdering Facility: [facility] Address: [address] [place] [address] Performed By: #### 5 7021-8 ####[facility] LABCLIA [id number] [place] [address] Eosinophils (Bld) [#/Vol] 0.26 10*3/uL Normal <0.46 [facility] Comment on above: Order Comment: Speci men Type: BLOOD SPECIMENOrdering Facility: [facility] Address: [address] [place] [address] Performed By: #### 5 7021-8 ####[facility] LABCLIA [id number] [place] [address] Eosinophils/100 WBC (Bld) 4.5 % Normal [facility] Comment on above: Order Comment: Speci men Type: BLOOD SPECIMENOrdering Facility: [facility] Address: [address] [place] [address] Performed By: #### 5 7021-8 ####[facility] LABCLIA [id number] [place] [address] Erythrocyte distribution width (RBC) [Ratio] 13.5 % Normal 11.5-15.0 [facility] Comment on above: Order Comment: Speci men Type: BLOOD SPECIMENOrdering Facility: [facility] Address: [address] [place] [address] Performed By: #### 5 7021-8 ####[facility] LABCLIA [id number] [place] [address] Hematocrit (Bld) [Volume fraction] 34.6 % Low 36.0-46.0 [facility] Comment on above: Order Comment: Speci men Type: BLOOD SPECIMENOrdering Facility: [facility] Address: [address] [place] [address] Performed By: #### 5 7021-8 ####[facility] LABCLIA [id number] [place] [address] Hemoglobin (Bld) [Mass/Vol] 11.8 g/dL Normal 11.5-15.5 [facility] Comment on above: Order Comment: Speci men Type: BLOOD SPECIMENOrdering Facility: [facility] Address: [address] [place] [address] Performed By: #### 5 7021-8 ####[facility] LABCLIA [id number] [place] [address] Immature granulocytes (Bld) [#/Vol] 0.04 10*3/uL Normal <0.10 [facility] Comment on above: Order Comment: Speci men Type: BLOOD SPECIMENOrdering Facility: [facility] Address: [address] [place] [address] Performed By: #### 5 7021-8 ####[facility] LABCLIA [id number] [place] [address] Immature granulocytes/100 WBC (Bld) 0.7 % Normal [facility] Comment on above: Order Comment: Speci men Type: BLOOD SPECIMENOrdering Facility: [facility] Address: [address] [place] [address] Performed By: #### 5 7021-8 ####[facility] LABCLIA [id number] [place] [address] Lymphocytes (Bld) [#/Vol] 0.47 10*3/uL Low 1.00-4.00 [facility] Comment on above: Order Comment: Speci men Type: BLOOD SPECIMENOrdering Facility: [facility] Address: [address] [place] [address] Performed By: #### 5 7021-8 ####[facility] LABCLIA [id number] [place] [address] Lymphocytes/100 WBC (Bld) 8.1 % Normal [facility] Comment on above: Order Comment: Speci men Type: BLOOD SPECIMENOrdering Facility: [facility] Address: [address] [place] [address] Performed By: #### 5 7021-8 ####[facility] LABCLIA [id number] [place] [address] MCH (RBC) [Entitic mass] 28.5 pg Normal 26.0-34.0 [facility] Comment on above: Order Comment: Speci men Type: BLOOD SPECIMENOrdering Facility: [facility] Address: [address] [place] [address] Performed By: #### 5 7021-8 ####[facility] LABCLIA [id number] [place] [address] MCHC (RBC) [Mass/Vol] 34.1 g/dL Normal 30.5-36.0 [facility] Comment on above: Order Comment: Speci men Type: BLOOD SPECIMENOrdering Facility: [facility] Address: [address] [place] [address] Performed By: #### 5 7021-8 ####[facility] LABIA [id number] [place] [address] MCV (RBC) [Entitic vol] 83.6 fL Normal 80.0-100.0 C [facility] Comment on above: Order Comment: Speci men Type: BLOOD SPECIMENOrdering Facility: [facility] Address: [address] [place] [address] Performed By: #### 5 7021-8 ####[facility] LABCLIA [id number] [place] [address] Monocytes (Bld) [#/Vol] 0.46 10*3/uL Normal <0.87 [facility] Comment on above: Order Comment: Speci men Type: BLOOD SPECIMENOrdering Facility: [facility] Address: [address] [place] [address] Performed By: #### 5 7021-8 ####[facility] LABCLIA [id number] [place] [address] Monocytes/100 WBC (Bld) 7.9 % Normal C [facility] Comment on above: Order Comment: Speci men Type: BLOOD SPECIMENOrdering Facility: [facility] Address: [address] [place] [address] Performed By: #### 5 7021-8 ####[facility] LABCLIA [id number] [place] [address] Neutrophils (Bld) [#/Vol] 4.53 10*3/uL Normal 1.45-7.50 [facility] Comment on above: Order Comment: Speci men Type: BLOOD SPECIMENOrdering Facility: [facility] Address: [address] [place] [address] Performed By: #### 5 7021-8 ####[facility] LABCLIA [id number] [place] [address] Neutrophils/100 WBC (Bld) 77.9 % Normal [facility] Comment on above: Order Comment: Speci men Type: BLOOD SPECIMENOrdering Facility: [facility] Address: [address] [place] [address] Performed By: #### 5 7021-8 ####[facility] LABCLIA [id number] [place] [address] Nucleated RBC (Bld) [#/Vol] 10*3/uL Normal <0.01 [facility] Comment on above: Order Comment: Speci men Type: BLOOD SPECIMENOrdering Facility: [facility] Address: [address] [place] [address] Performed By: #### 5 7021-8 ####[facility] LABCLIA [id number] [place] [address] Nucleated RBC/100 WBC (Bld) [Ratio] 0.0 /100 WBC Normal [facility] Comment on above: Order Comment: Speci men Type: BLOOD SPECIMENOrdering Facility: [facility] Address: [address] [place] [address] Performed By: #### 5 7021-8 ####[facility] LABCLIA [id number] [place] [address] Platelet mean volume (Bld) [Entitic vol] 8.5 fL Low 9.0-12.7 [facility] Comment on above: Order Comment: Speci men Type: BLOOD SPECIMENOrdering Facility: [facility] Address: [address] [place] [address] Performed By: #### 5 7021-8 ####[facility] LABCLIA [id number] [place] [address] Platelets (Bld) [#/Vol] 291 10*3/uL Normal 150-400 [facility] Comment on above: Order Comment: Speci men Type: BLOOD SPECIMENOrdering Facility: [facility] Address: [address] [place] [address] Performed By: #### 5 7021-8 ####[facility] LABIA [id number] [place] [address] RBC (Bld) [#/Vol] 4.14 10*6/uL Normal 3.90-5.20 [facility] Comment on above: Order Comment: Speci men Type: BLOOD SPECIMENOrdering Facility: [facility] Address: [address] [place] [address] Performed By: #### 5 7021-8 ####[facility] LABIA [id number] [place] [address] WBC (Bld) [#/Vol] 5.81 10*3/uL Normal 3.70-11.00 [facility] Comment on above: Order Comment: Speci men Type: BLOOD SPECIMENOrdering Facility: [facility] Address: [address] [place] [address] Performed By: #### 5 7021-8 ####[facility] LABCLIA [id number] [place] [address] CEA SerPl-mCncon 07-08-2024 Carcinoembryonic Ag [Mass/Vol] 3.2 ng/mL High <=2.9 [facility] Comment on above: Order Comment: Speci men Type: BLOOD SPECIMENOrdering Facility: [facility] Address: [address] [place] [address] Result Comment: Carc inoembryonic antigen test is used as an aid in monitoring response to treatment or recurrence in patients with established colorectal, breast, lung, prostatic, pancreatic, and ovarian carcinomas. Clinical correlation is required.The Carcinoembryonic antigen test was performed using the [employer] Un[employer]el DXI paramagnetic particle chemiluminescent immunoassay method. Results obtained with different assay methods or kits cannot be used interchangeably. Performed By: #### 2 039-6 ####[facility] LABCLIA [id number] [place] [address] [place] CNOVSPon 07-08-2024 CNOVSP Normal [facility] CNPNon 07-08-2024 CNPN Normal [facility] Comprehensive metabolic 2000 panelon 07-08-2024 Albumin [Mass/Vol] 3.9 g/dL Normal 3.9-4.9 [facility] Comment on above: Order Comment: Speci men Type: BLOOD SPECIMENOrdering Facility: [facility] Address: [address] [place] [address] Performed By: #### 2 4323-8 ####[facility] LABCLIA [id number] [place] [address] ALP [Catalytic activity/Vol] 109 U/L Normal 34-123 [facility] Comment on above: Order Comment: Speci men Type: BLOOD SPECIMENOrdering Facility: [facility] Address: [address] [place] [address] Performed By: #### 2 4323-8 ####[facility] LABCLIA [id number] [place] [address] ALT [Catalytic activity/Vol] 8 U/L Normal 7-38 [facility] Comment on above: Order Comment: Speci men Type: BLOOD SPECIMENOrdering Facility: [facility] Address: [address] [place] [address] Performed By: #### 2 4323-8 ####[facility] LABCLIA [id number] [place] [address] Anion gap [Moles/Vol] 9 mmol/L Normal 8-15 [facility] Comment on above: Order Comment: Speci men Type: BLOOD SPECIMENOrdering Facility: [facility] Address: [address] [place] [address] Performed By: #### 2 4323-8 ####[facility] LABCLIA [id number] [place] [address] AST [Catalytic activity/Vol] 8 U/L Low 13-35 [facility] Comment on above: Order Comment: Speci men Type: BLOOD SPECIMENOrdering Facility: [facility] Address: [address] [place] [address] Performed By: #### 2 4323-8 ####[facility] LABCLIA [id number] [place] [address] Bilirubin [Mass/Vol] 0.6 mg/dL Normal 0.2-1.3 [facility] Comment on above: Order Comment: Speci men Type: BLOOD SPECIMENOrdering Facility: [facility] Address: [address] [place] [address] Performed By: #### 2 4323-8 ####[facility] LABCLIA [id number] [place] [address] Calcium [Mass/Vol] 9.6 mg/dL Normal 8.5-10.2 [facility] Comment on above: Order Comment: Speci men Type: BLOOD SPECIMENOrdering Facility: [facility] Address: [address] [place] [address] Performed By: #### 2 4323-8 ####[facility] LABCLIA [id number] [place] [address] Chloride [Moles/Vol] 96 mmol/L Low 98-107 [facility] Comment on above: Order Comment: Speci men Type: BLOOD SPECIMENOrdering Facility: [facility] Address: [address] [place] [address] Performed By: #### 2 4323-8 ####[facility] LABCLIA [id number] [place] [address] CO2 [Moles/Vol] 28 mmol/L Normal 22-30 [facility] Comment on above: Order Comment: Speci men Type: BLOOD SPECIMENOrdering Facility: [facility] Address: [address] [place] [address] Performed By: #### 2 4323-8 ####[facility] LABCLIA [id number] [place] [address] Creatinine [Mass/Vol] 0.94 mg/dL Normal 0.58-0.96 [facility] Comment on above: Order Comment: Speci men Type: BLOOD SPECIMENOrdering Facility: [facility] Address: [address] [place] [address] Performed By: #### 2 4323-8 ####[facility] LABCLIA [id number] [place] [address] Creatinine and Glomerular filtration rate.predicted panel (S/P/Bld) 67 mL/min/1.73m??? Normal >=60 [facility] Comment on above: Order Comment: Speci men Type: BLOOD SPECIMENOrdering Facility: [facility] Address: [address] [place] [address] Result Comment: Lisbeth mated Glomerular Filtration Rate (eGFR) is calculated using the 2020 CKD-EPI creatinine equation. This equation utilizes serum creatinine, sex, and age as parameters. The creatinine assay has traceable calibration to isotope dilution-mass spectrometry. Refer to KDIGO guidelines for clinical interpretation. In patients with unstable renal function, e.g. those with acute kidney injury, the eGFR may not accurately reflect actual GFR. Performed By: #### 2 4323-8 ####[facility] LABCLIA [id number] [place] [address] Glucose [Mass/Vol] 398 mg/dL High 74-99 [facility] Comment on above: Order Comment: Speci men Type: BLOOD SPECIMENOrdering Facility: [facility] Address: [address] [place] [address] Result Comment: The [place] Diabetes Association (ADA) provides guidance for cutoff values for fasting glucose and random glucose. The ADA defines fasting as no caloric intake for at least 8 hours. Fasting plasma glucose results between 100 to 125 mg/dL indicate increased risk for diabetes (prediabetes).Fasting plasma glucose results greater than or equal to 126 mg/dL meet the criteria for diagnosis of diabetes. In the absence of unequivocal hyperglycemia, results should be confirmed by repeat testing. In a patient with classic symptoms of hyperglycemia or hyperglycemic crisis, random plasma glucose results greater than or equal to 200 mg/dL meet the criteria for diagnosis of diabetes.Reference: Standards of Medical Care in Diabetes 2016, [place] [employer]. Diabetes Care. 2016.39(Suppl 1). Performed By: #### 2 4323-8 ####[facility] LABCLIA [id number] [place] [address] Potassium [Moles/Vol] 4.5 mmol/L Normal 3.7-5.1 [facility] Comment on above: Order Comment: Speci men Type: BLOOD SPECIMENOrdering Facility: [facility] Address: [address] [place] [address] Performed By: #### 2 4323-8 ####[facility] LABCLIA [id number] [place] [address] Protein [Mass/Vol] 6.6 g/dL Normal 6.3-8.0 [facility] Comment on above: Order Comment: Speci men Type: BLOOD SPECIMENOrdering Facility: [facility] Address: [address] [place] [address] Performed By: #### 2 4323-8 ####[facility] LABCLIA [id number] [place] [address] Sodium [Moles/Vol] 133 mmol/L Low 136-144 [facility] Comment on above: Order Comment: Speci men Type: BLOOD SPECIMENOrdering Facility: [facility] Address: [address] [place] [address] Performed By: #### 2 4323-8 ####[facility] LABCLIA [id number] [place] [address] Urea nitrogen [Mass/Vol] 13 mg/dL Normal 7-21 [facility] Comment on above: Order Comment: Speci men Type: BLOOD SPECIMENOrdering Facility: [facility] Address: [address] [place] [address] Performed By: #### 2 4323-8 ####[facility] LABCLIA [id number] [place] [address] Fibrin D-dimer DDU (PPP) [Ma ss/Vol]on 07-08-2024 D DIMER 224 ng/mL DDU Normal <255 [facility] Comment on above: Result Comment: Results <255 ng/mL DDU: The presence of a VTE can safely be excluded with a negative D-Dimer result and Wells score. A negative result doesn't exclude the possibility of DIC. The test be repeated along with other diagnostic tests if the patient's symptoms persist or worsen. [email or web address] Performed By: #### C BCA, CMP, 3040-3, 27986-5 #### [facility] ([id number]) [address] [place] [address] CNPNon 07-03-2024 CNPN Normal [facility] MR Pelvis WO contraston 06-21 IMPRESSION: Since 01/10/2024 and 09/04/2023, post treatment primary tumor assessment: Incomplete response (likely residual tumor). -Decreased size and bulk of mid rectal mass with increasing scar/fibrosis. mrTRG: Grade 3 - Moderate response Suspicious Mesorectal lymph nodes: No. Suspicious Extramesorectal lymph nodes: No. Yard Crane Operator: FLAVIA Transcribe Date/Time: Jul 01 2024 3:39P Dictated by : PAWEL ODONNELL MD This examination was interpreted and the report reviewed and electronically signed by: PAWEL ODONNELL MD on Jul 01 2024 4:04PM [facility] * * *Final Report* * * DATE OF EXAM: Jul 01 2024 2:37PM [facility] 0754 - MRI RECTUM WO/W IVCON / PROCEDURE REASON: multiple diagnoses * * * * Physician Interpretation * * * * MRI OF THE PELVIS WITHOUT AND WITH CONTRAST: RECTAL CANCER RESTAGING CLINICAL HISTORY: Rectal Cancer RESTAGING Pretreatment Tumor Staging: clinical stage IIIB T3a N2M0 Rectal tumor histology: Invasive moderately differentiated adenocarcinoma Prior chemotherapy or radiation: Xeloda and XRT started 10/16/2023- Planned YANIV, sp 5,040 cGy in 28 fractions COMPARISON: MRI 01/10/2024 and 09/04/2023 TECHNIQUE: Magnet: 1.5T scanner. Multiplanar MRI with multiple sequences before and after contrast. Contrast: IV: 9 ml of Elucirem Rectal: 60cc ml of Surgilube RESULT: TREATED PRIMARY TUMOR CHARACTERISTICS (Compare to pre-treatment): DWI (with associated low ADC) ? restricted diffusion and low ADC in tumor or tumor bed: Absent. MRI-T2W: Mixed dark T2/scar and intermediate signal. T2 bright mucin (cannot distinguish between cellular and acellular mucin): Absent. Description: Predominantly T2 hypointense scar/fibrosis with minimal admixed areas of T2 intermediate signal intensity along the anterolateral wall (7:20) Distance of the inferior margin of treated tumor to the anal verge: 9.7 cm (3:20) Distance of the inferior margin to the top of sphincter complex/anorectal junction: 5.8 cm (3:20) Relationship to anterior peritoneal reflection: Below Craniocaudal length: 2.8 cm (3:19) previously 6 cm Pre-treatment craniocaudal length: 6.9 cm Tumor location: Mid rectum (5-10 cm) Maximal wall thickness: 0.9 cm (7:19) previously 1.9 cm Pre-treatment wall thickness: 6.6 cm Invasion of anal sphincter complex: Absent. [...] change: N/A POST-TREATMENT TUMOR REGRESSION: mrTRG: Grade 3 - Moderate response LYMPH NODES: Mesorectal/superior rectal lymph nodes and/or tumor deposits: N0 (no visible lymph nodes/deposits or only < 5 mm short axis) Suspicious extra mesorectal lymph nodes: None. OTHER FINDINGS: Unchanged 2.8 cm right adnexal cyst. Left-sided pelvic fluid. [facility] Provider, [facility] - 07/01/2024 * * *Final Report* * * DATE OF EXAM: Jul 01 2024 2:37PM [facility] 0754 - MRI RECTUM WO/W IVCON / PROCEDURE REASON: multiple diagnoses * * * * Physician Interpretation * * * * MRI OF THE PELVIS WITHOUT AND WITH CONTRAST: RECTAL CANCER RESTAGING CLINICAL HISTORY: Rectal Cancer RESTAGING Pretreatment Tumor Staging: clinical stage IIIB T3a N2M0 Rectal tumor histology: Invasive moderately differentiated adenocarcinoma Prior chemotherapy or radiation: Xeloda and XRT started 10/16/2023- Planned YANIV, sp 5,040 cGy in 28 fractions COMPARISON: MRI 01/10/2024 and 09/04/2023 TECHNIQUE: Magnet: 1.5T scanner. Multiplanar MRI with multiple sequences before and after contrast. Contrast: IV: 9 ml of Elucirem Rectal: 60cc ml of Surgilube RESULT: TREATED PRIMARY TUMOR CHARACTERISTICS (Compare to pre-treatment): DWI (with associated low ADC) ? restricted diffusion and low ADC in tumor or tumor bed: Absent. MRI-T2W: Mixed dark T2/scar and intermediate signal. T2 bright mucin (cannot distinguish between cellular and acellular mucin): Absent. Description: Predominantly T2 hypointense scar/fibrosis with minimal admixed areas of T2 intermediate signal intensity along the anterolateral wall (7:20) Distance of the inferior margin of treated tumor to the anal verge: 9.7 cm (3:20) Distance of the inferior margin to the top of sphincter complex/anorectal junction: 5.8 cm (3:20) Relationship to anterior peritoneal reflection: Below Craniocaudal length: 2.8 cm (3:19) previously 6 cm Pre-treatment craniocaudal length: 6.9 cm Tumor location: Mid rectum (5-10 cm) Maximal wall thickness: 0.9 cm (7:19) previously 1.9 cm Pre-treatment wall thickness: 6.6 cm Invasion of anal sphincter complex: Absent. [...] change: N/A POST-TREATMENT TUMOR REGRESSION: mrTRG: Grade 3 - Moderate response LYMPH NODES: Mesorectal/superior rectal lymph nodes and/or tumor deposits: N0 (no visible lymph nodes/deposits or only < 5 mm short axis) Suspicious extra mesorectal lymph nodes: None. OTHER FINDINGS: Unchanged 2.8 cm right adnexal cyst. Left-sided pelvic fluid. IMPRESSION IMPRESSION: Since 01/10/2024 and 09/04/2023, post treatment primary tumor assessment: Incomplete response (likely residual tumor). -Decreased size and bulk of mid rectal mass with increasing scar/fibrosis. mrTRG: Grade 3 - Moderate response Suspicious Mesorectal lymph nodes: No. Suspicious Extramesorectal lymph nodes: No. Yard Crane Operator: FLAVIA Transcribe Date/Time: Jul 01 2024 3:39P Dictated by : PAWEL ODONNELL MD This examination was interpreted and the report reviewed and electronically signed by: PAWEL ODONNELL MD on Jul 01 2024 4:04PM [facility] Radiology Study observation (narrative) [place] [facility] MR Pelvis WO contrastOrdered By: Ccf Provider on 07-01-2024 [facility] MRI RECTUM WO/W IVCONon 06-21 MRI RECTUM WO/W IVCON * * *Final Report* * * DATE OF EXAM: Jul 01 2024 2:37PM [facility] 0754 - MRI RECTUM WO/W IVCON / PROCEDURE REASON: multiple diagnoses * * * * Physician Interpretation * * * * MRI OF THE PELVIS WITHOUT AND WITH CONTRAST: RECTAL CANCER RESTAGING CLINICAL HISTORY: Rectal Cancer RESTAGING Pretreatment Tumor Staging: clinical stage IIIB T3a N2M0 Rectal tumor histology: Invasive moderately differentiated adenocarcinoma Prior chemotherapy or radiation: Xeloda and XRT started 10/16/2023- Planned YANIV, sp 5,040 cGy in 28 fractions COMPARISON: MRI 01/10/2024 and 09/04/2023 TECHNIQUE: Magnet: 1.5T scanner. Multiplanar MRI with multiple sequences before and after contrast. Contrast: IV: 9 ml of Elucirem Rectal: 60cc ml of Surgilube RESULT: TREATED PRIMARY TUMOR CHARACTERISTICS (Compare to pre-treatment): DWI (with associated low ADC) ? restricted diffusion and low ADC in tumor or tumor bed: Absent. MRI-T2W: Mixed dark T2/scar and intermediate signal. T2 bright mucin (cannot distinguish between cellular and acellular mucin): Absent. Description: Predominantly T2 hypointense scar/fibrosis with minimal admixed areas of T2 intermediate signal intensity along the anterolateral wall (7:20) Distance of the inferior margin of treated tumor to the anal verge: 9.7 cm (3:20) Distance of the inferior margin to the top of sphincter complex/anorectal junction: 5.8 cm (3:20) Relationship to anterior peritoneal reflection: Below Craniocaudal length: 2.8 cm (3:19) previously 6 cm Pre-treatment craniocaudal length: 6.9 cm Tumor location: Mid rectum (5-10 cm) Maximal wall thickness: 0.9 cm (7:19) previously 1.9 cm Pre-treatment wall thickness: 6.6 cm Invasion of anal sphincter complex: Absent. [...] change: N/A POST-TREATMENT TUMOR REGRESSION: mrTRG: Grade 3 - Moderate response LYMPH NODES: Mesorectal/superior rectal lymph nodes and/or tumor deposits: N0 (no visible lymph nodes/deposits or only < 5 mm short axis) Suspicious extra mesorectal lymph nodes: None. OTHER FINDINGS: Unchanged 2.8 cm right adnexal cyst. Left-sided pelvic fluid. IMPRESSION: Since 01/10/2024 and 09/04/2023, post treatment primary tumor assessment: Incomplete response (likely residual tumor). -Decreased size and bulk of mid rectal mass with increasing scar/fibrosis. mrTRG: Grade 3 - Moderate response Suspicious Mesorectal lymph nodes: No. Suspicious Extramesorectal lymph nodes: No. Yard Crane Operator: PSCB Transcribe Date/Time: Jul 01 2024 3:39P Dictated by : PAWEL ODONNELL MD This examination was interpreted and the report reviewed and electronically signed by: PAWEL ODONNELL MD on Jul 01 2024 4:04PM EST [id number] N Normal [facility] CBC AND AUTO DIFFon 06-24-19 25 ABSOLUTE BASOPHIL 0.1 X10E9/L Normal 0.0-0.2 [facility] Comment on above: Performed By: #### C PHYLLIS QURESHI, 808-, 31929-8 #### [facility] ([id number]) [address] [place] [address] ABSOLUTE NEUTROPHIL 3.8 X10E9/L Normal 1.5-6.6 [facility] Comment on above: Performed By: #### C PHYLLIS QURESHI, 3039-07, #### [facility] ([id number]) [address] [place] [address] 27029 Basophils/100 WBC (Bld) 1.1 % Normal [facility] Comment on above: Performed By: #### C TITUS CMP, 3039-07, #### [facility] ([id number]) [address] [place] [address] 59786 Eosinophils (Bld) [#/Vol] 0.1 10*3/uL Normal 0.0-0.4 [facility] Comment on above: Performed By: #### C PHYLLIS QURESHI, 3039-07, #### [facility] ([id number]) [address] [place] [address] 38110 Eosinophils/100 WBC (Bld) 1.0 % Normal [facility] Comment on above: Performed By: #### Elva QURESHI CMP, 3039-07, #### [facility] ([id number]) [address] [place] [address] 84058 Erythrocyte distribution width (RBC) [Ratio] 14.0 % Normal 11.5-15.0 [facility] Comment on above: Performed By: #### Elva QURESHI CMP, 3039-07, #### [facility] ([id number]) [address] [place] [address] 92367 Hematocrit (Bld) [Volume fraction] 33.1 % Low 35-47 [facility] Comment on above: Performed By: #### C TITUS CMP, 3039-07, #### [facility] ([id number]) [address] [place] [address] 21298 Hemoglobin (Bld) [Mass/Vol] 11.5 g/dL Low 11.7-15.5 [facility] Comment on above: Performed By: #### C TITUS CMP, 3039-07, #### [facility] ([id number]) [address] [place] [address] 59888 Lymphocytes (Bld) [#/Vol] 0.5 10*3/uL Low 1.0-3.5 [facility] Comment on above: Performed By: #### C TITUS [facility], 3039-07, #### [facility] ([id number]) [address] [place] [address] 32742 Lymphocytes/100 WBC (Bld) 9.6 % Normal [facility] Comment on above: Performed By: #### Elva QURESHI CMP, 3039-07, #### [facility] ([id number]) [address] [place] [address] 29402 MCH (RBC) [Entitic mass] 29.0 pg Normal 27-34 [facility] Comment on above: Performed By: #### C TITUS [facility], 3039-07, #### [facility] ([id number]) [address] [place] [address] 92615 MCHC (RBC) [Mass/Vol] 34.7 g/dL Normal 32-36 [facility] Comment on above: Performed By: #### C TITUS CMP, 3039-07, #### [facility] ([id number]) [address] [place] [address] 84103 MCV (RBC) [Entitic vol] 84 fL Normal 80-100 [facility] Comment on above: Performed By: #### C TITUS CMP, 3039-07, #### [facility] ([id number]) [address] [place] [address] 37799 Monocytes (Bld) [#/Vol] 0.6 10*3/uL Normal 0-0.9 [facility] Comment on above: Performed By: #### C TITUS CMP, 0-3, 34714-7 #### [facility] ([id number]) [address] [place] [address] 77033 Monocytes/100 WBC (Bld) 11.4 % Normal [facility] Comment on above: Performed By: #### C BCA, CMP, 0-3, #### [facility] ([id number]) [address] [place] [address] 52747 Neutrophils/100 WBC (Bld) 76.9 % Normal [facility] Comment on above: Performed By: #### C BCA, CMP, 3039-, #### [facility] ([id number]) [address] [place] [address] 70434 Platelet mean volume (Bld) [Entitic vol] 6.7 fL Low 7-12 [facility] Comment on above: Performed By: #### C BCA, CMP, 3039-07, 26659-2 #### [facility] ([id number]) [address] [place] [address] 64711 Platelets (Bld) [#/Vol] 356 10*3/uL Normal 150-450 [facility] Comment on above: Performed By: #### C BCA, CMP, 3039-07, 46138-3 #### [facility] ([id number]) [address] [place] [address] 14357 RBC COUNT 3.96 X10E12/L Normal 3.80-5.20 [facility] Comment on above: Performed By: #### C BCA, CMP, 0-, 49373-0 #### [facility] ([id number]) [address] [place] [address] 69103 WBC (Bld) [#/Vol] 4.9 10*3/uL Normal 4.0-11.0 [facility] Comment on above: Performed By: #### C BCA, CMP, 3, 11221-6 #### [facility] ([id number]) [address] [place] [address] 45298 COMPREHENSIVE METABOLIC PANE Felix 06-24-2024 Albumin [Mass/Vol] 3.3 g/dL Normal 3.2-5.3 [facility] Comment on above: Performed By: #### C BCA, CMP, 3039-07, #### [facility] ([id number]) [address] [place] [address] 65140 ALP [Catalytic activity/Vol] 105 U/L Normal 39-130 [facility] Comment on above: Performed By: #### C BCA, CMP, 3039-07, #### [facility] ([id number]) [address] [place] [address] 09231 ALT [Catalytic activity/Vol] 12 U/L Normal 0-31 [facility] Comment on above: Performed By: #### C BCA, CMP, 3039-07, 60939-5 #### [facility] ([id number]) [address] [place] [address] 56995 Anion gap [Moles/Vol] 10 mmol/L Normal 5-15 [facility] Comment on above: Performed By: #### C BCA, CMP, 3039-07, #### [facility] ([id number]) [address] [place] [address] 91527 AST [Catalytic activity/Vol] 16 U/L Normal 0-41 [facility] Comment on above: Performed By: #### C BCA, CMP, 3039-07, #### [facility] ([id number]) [address] [place] [address] 38826 Bilirubin [Mass/Vol] 1.0 mg/dL Normal 0.3-1.2 [facility] Comment on above: Performed By: #### C BCA, CMP, 3, 28916-3 #### [facility] ([id number]) [address] [place] [address] 36313 Calcium [Mass/Vol] 8.5 mg/dL Normal 8.5-10.5 [facility] Comment on above: Performed By: #### C BCA, CMP, 3, #### [facility] ([id number]) [address] [place] [address] 98662 Chloride [Moles/Vol] 102 mmol/L Normal 98-109 [facility] Comment on above: Performed By: #### C BCA, CMP, 3039-07, #### [facility] ([id number]) [address] [place] [address] 72798 CO2 [Moles/Vol] 24 mmol/L Normal 22-32 [facility] Comment on above: Performed By: #### C BCA, CMP, 3039-07, 26092-4 #### [facility] ([id number]) [address] [place] [address] 09001 Creatinine [Mass/Vol] 0.92 mg/dL Normal 0.40-1.00 [facility] Comment on above: Result Comment: METH OD TRACEABLE TO IDMS STANDARD Performed By: #### C BCA, CMP, 3039-07, 53232-1 #### [facility] ([id number]) [address] [place] [address] 35063 GFR/1.73 sq M.predicted among non-blacks MDRD (S/P/Bld) [Vol rate/Area] 69 mL/min/{1.73_m2} Normal >59 [facility] Comment on above: Result Comment: Reported eGFR is based on the CKD-EPI 2020 equation that does not use a race coefficient. Performed By: #### C BCA, CMP, 3, 14961-9 #### [facility] ([id number]) [address] [place] [address] 91516 Glucose [Mass/Vol] 412 mg/dL Critically high 65-99 [facility] Comment on above: Performed By: #### C TITUS, CMP, 3040-3, 86732-2 #### [facility] ([id number]) [address] [place] [address] 33782 Potassium [Moles/Vol] 3.9 mmol/L Normal 3.5-5.0 [facility] Comment on above: Performed By: #### C TITUS, [facility], 03, 91346-5 #### [facility] ([id number]) [address] [place] [address] 91101 Protein [Mass/Vol] 7.0 g/dL Normal 6.0-8.0 [facility] Comment on above: Performed By: #### C TITUS, CMP, 3, #### [facility] ([id number]) [address] [place] [address] 28161 Sodium [Moles/Vol] 136 mmol/L Normal 134-146 [facility] Comment on above: Performed By: #### C TITUS, CMP, 3, 56608-8 #### [facility] ([id number]) [address] [place] [address] 05925 Urea nitrogen [Mass/Vol] 12 mg/dL Normal 5-27 [facility] Comment on above: Performed By: #### C TITUS, CMP, 3, 30126-3 #### [facility] ([id number]) [address] [place] [address] 47649 Glucose Glucometer (BldC) [M ass/Vol]on 06-24-2024 Glucose [Mass/Vol] 334 mg/dL High 65-99 [facility] LIPASEon 06-24-2024 Lipase [Catalytic activity/Vol] 54 U/L High 17-40 [facility] Comment on above: Performed By: #### C BCA, CMP, 3040-3, 40306-7 #### [facility] ([id number]) [address] [place] [address] 48361 Lactate (P jose c) [Moles/Vol]o n 06-24-2024 LACTATE W/REFLEX 2.1 mmol/L High 0.4-2.0 [facility] Comment on above: Performed By: #### C BCA, CMP, 3040-3, 80699-9 #### [facility] ([id number]) [address] [place] [address] 01387 MAGNESIUMon 06-24-2024 Magnesium [Mass/Vol] 1.6 mg/dL Low 1.8-2.6 [facility] Comment on above: Performed By: #### C BCA, CMP, 3040-3, 92275-5 #### [facility] ([id number]) [address] [place] [address] 18253 CNPNon 06-23-2024 CNPN Normal [facility] CREATININE BLDOrdered By: Raamkrishna Kwon on 06-23-2024 Creatinine [Mass/Vol] 0.86 mg/dL 0.58 - 0.96 mg/dL [facility] GFR/1.73 sq M.predicted among non-blacks MDRD (S/P/Bld) [Vol rate/Area] 75 mL/min/{1.73_m2} - PINF [facility] Comment on above: Estimated Glomerular Filtration Rate (eGFR) is calculated using the 2020 CKD-EPI creatinine equation. This equation utilizes serum creatinine, sex, and age as parameters. The creatinine assay has traceable calibration to isotope dilution-mass spectrometry. Refer to KDIGO guidelines for clinical interpretation. In patients with unstable renal function, e.g. those with acute kidney injury, the eGFR may not accurately reflect actual GFR. Interpretation and review of laboratory results Normal [facility] CREATININE BLDon 06-23-2024 Creatinine [Mass/Vol] 0.86 mg/dL Normal 0.58-0.96 [facility] Comment on above: Order Comment: Speci men Type: BLOOD SPECIMENOrdering Facility: [facility] Address: [address] [place], [place] [address] Performed By: #### C RET1 ####[facility] LABCLIA [id number] [place] [address] Creatinine and Glomerular filtration rate.predicted panel (S/P/Bld) 75 mL/min/1.73m??? Normal >=60 [facility] Comment on above: Order Comment: Speci men Type: BLOOD SPECIMENOrdering Facility: [facility] Address: [address] [place], [place] [address] Result Comment: Lisbeth mated Glomerular Filtration Rate (eGFR) is calculated using the 2020 CKD-EPI creatinine equation. This equation utilizes serum creatinine, sex, and age as parameters. The creatinine assay has traceable calibration to isotope dilution-mass spectrometry. Refer to KDIGO guidelines for clinical interpretation. In patients with unstable renal function, e.g. those with acute kidney injury, the eGFR may not accurately reflect actual GFR. Performed By: #### C RET1 ####[facility] LABCLIA [id number] [place] [address] CT ABD/PEL W IVCONon 025 CT ABD/PEL W IVCON Normal [facility] CT Abdomen and Pelvis W cont rast Waqas 06-23-2024 IMPRESSION: 1. Findings compatible with acute sigmoid diverticulitis. There is no intraperitoneal free air. A small amount of nonspecific fluid is noted within the adjacent sigmoid mesentery. 2. No CT evidence of metastatic disease in the abdomen/pelvis. 3. Unchanged 9 mm cyst at the pancreatic tail, perhaps representing a side branch IPMN. 4. Similar-appearing 3 cm cyst in the right adnexa. 5. Additional stable incidental findings are detailed above including a small hiatal hernia. Transcribe Date/Time: Jun 23 2024 12:44P Dictated by: ROBER BORJA MD This examination was interpreted and the report reviewed and electronically signed by: ROBER BORJA MD on Jun 23 2024 1:07PM EST Thank you for allowing us to participate in the care of your patient. Should there be any questions regarding this interpretation, please call [phone]. If you are unable to reach us at the number above, please feel free to contact [facility] at [phone]. DIVISION OF RADIOLOGY * * *Final Report* * * DATE OF EXAM: Jun 23 2024 10:41AM [facility] 0530 - CT ABD/PEL W IVCON / PROCEDURE REASON: multiple diagnoses * * * * Physician Interpretation * * * * RESULT: EXAMINATION: CT ABDOMEN AND PELVIS WITH IV CONTRAST CLINICAL HISTORY: Rectal cancer TECHNIQUE: CT of the abdomen and pelvis was performed using standard technique, scanning from just above the dome of the diaphragm to the symphysis pubis. MQ: CTAP_3 Contrast: IV: 100 ml of Omnipaque 300 Oral: 500 ml of Omni 240 10-25ml diluted with water CT Radiation dose: Integrated Dose-length product (DLP) for this visit = 1654 mGy*cm. CT Dose Reduction Employed: Automated exposure control (AEC) COMPARISON: Previous CT abdomen/pelvis dated 07/16/2023. MRI pelvis dated 01/10/2024 and 09/04/2023. RESULT: Liver: No mass. Biliary: No bile duct dilation. Surgically absent gallbladder. Spleen: No mass. No splenomegaly. Pancreas: A 9 mm cyst at the superior aspect of the pancreatic tail on series 2 image 34 is unchanged. There is no dilation of the pancreatic duct. There is no CT evidence of a solid pancreatic mass. Adrenals: Thickening of the adrenal glands is unchanged from previously, perhaps indicating hyperplasia. No mass. Kidneys: Multiple incidental cysts are noted in both kidneys. The kidneys are otherwise unremarkable. No collecting system dilation. GI tract: Sigmoid diverticulosis is noted, with new wall thickening seen involving the mid sigmoid colon, mild adjacent inflammatory stranding, and a small amount of fluid in posterior to this along the root of the sigmoid mesentery on series 2 image one eight. The appearance is compatible with acute diverticulitis. There is no intraperitoneal free air. No small or large bowel dilation. Small hiatal hernia. Lymph nodes: No abdominal or pelvic lymphadenopathy. Mesentery/Peritoneum: No mass. Retroperitoneum: No mass. Vasculature: - Abdominal aorta and iliac arteries: Atherosclerotic calcifications without aneurysm. - Celiac and SMA: Atherosclerotic calcifications at the origins. - Portal venous system (SMV, splenic vein, portal vein and branches): Patent. - Hepatic veins: Patent. Pelvis: A 3 cm cyst in the right adnexa on series 2 image 106 measured 2.8 cm in June 2023. Bones/Soft Tissues: No destructive skeletal lesion is present. Right-sided lumbar spine fusion hardware noted at L5-S1, with an interbody spacer in place. Lower thorax: Please see the separate report for the concurrently obtained CT of the chest. Localizer images: No additional findings. DIVISION OF RADIOLOGY Provider, [facility] - 06/23/2024 * * *Final Report* * * DATE OF EXAM: Jun 23 2024 10:41AM [facility] 0530 - CT ABD/PEL W IVCON / PROCEDURE REASON: multiple diagnoses * * * * Physician Interpretation * * * * RESULT: EXAMINATION: CT ABDOMEN AND PELVIS WITH IV CONTRAST CLINICAL HISTORY: Rectal cancer TECHNIQUE: CT of the abdomen and pelvis was performed using standard technique, scanning from just above the dome of the diaphragm to the symphysis pubis. MQ: CTAP_3 Contrast: IV: 100 ml of Omnipaque 300 Oral: 500 ml of Omni 240 10-25ml diluted with water CT Radiation dose: Integrated Dose-length product (DLP) for this visit = 1654 mGy*cm. CT Dose Reduction Employed: Automated exposure control (AEC) COMPARISON: Previous CT abdomen/pelvis dated 07/16/2023. MRI pelvis dated 01/10/2024 and 09/04/2023. RESULT: Liver: No mass. Biliary: No bile duct dilation. Surgically absent gallbladder. Spleen: No mass. No splenomegaly. Pancreas: A 9 mm cyst at the superior aspect of the pancreatic tail on series 2 image 34 is unchanged. There is no dilation of the pancreatic duct. There is no CT evidence of a solid pancreatic mass. Adrenals: Thickening of the adrenal glands is unchanged from previously, perhaps indicating hyperplasia. No mass. Kidneys: Multiple incidental cysts are noted in both kidneys. The kidneys are otherwise unremarkable. No collecting system dilation. GI tract: Sigmoid diverticulosis is noted, with new wall thickening seen involving the mid sigmoid colon, mild adjacent inflammatory stranding, and a small amount of fluid in posterior to this along the root of the sigmoid mesentery on series 2 image one eight. The appearance is compatible with acute diverticulitis. There is no intraperitoneal free air. No small or large bowel dilation. Small hiatal hernia. Lymph nodes: No abdominal or pelvic lymphadenopathy. Mesentery/Peritoneum: No mass. Retroperitoneum: No mass. Vasculature: - Abdominal aorta and iliac arteries: Atherosclerotic calcifications without aneurysm. - Celiac and SMA: Atherosclerotic calcifications at the origins. - Portal venous system (SMV, splenic vein, portal vein and branches): Patent. - Hepatic veins: Patent. Pelvis: A 3 cm cyst in the right adnexa on series 2 image 106 measured 2.8 cm in June 2023. Bones/Soft Tissues: No destructive skeletal lesion is present. Right-sided lumbar spine fusion hardware noted at L5-S1, with an interbody spacer in place. Lower thorax: Please see the separate report for the concurrently obtained CT of the chest. Localizer images: No additional findings. IMPRESSION IMPRESSION: 1. Findings compatible with acute sigmoid diverticulitis. There is no intraperitoneal free air. A small amount of nonspecific fluid is noted within the adjacent sigmoid mesentery. 2. No CT evidence of metastatic disease in the abdomen/pelvis. 3. Unchanged 9 mm cyst at the pancreatic tail, perhaps representing a side branch IPMN. 4. Similar-appearing 3 cm cyst in the right adnexa. 5. Additional stable incidental findings are detailed above including a small hiatal hernia. Transcribe Date/Time: Jun 23 2024 12:44P Dictated by: ROBER BORJA MD This examination was interpreted and the report reviewed and electronically signed by: ROBER BORJA MD on Jun 23 2024 1:07PM EST Thank you for allowing us to participate in the care of your patient. Should there be any questions regarding this interpretation, please call [phone]. If you are unable to reach us at the number above, please feel free to contact [facility] at [phone]. [facility] CT Abdomen and Pelvis W cont rast IVOrdered By: Ccf Provider on 06-23-2024 [facility] CT CHEST W IVCONon CT CHEST W IVCON Normal Risa edwards [facility] CT Chest W contrast Waqas IMPRESSION: 1. No CT evidence of new metastatic disease in the chest. 2. Unchanged pulmonary nodules measuring up to 5 mm. No new pulmonary nodules or masses are identified. Transcribe Date/Time: Jun 23 2024 12:45P Dictated by: ROBER BORJA MD This examination was interpreted and the report reviewed and electronically signed by: ROBER BORJA MD on Jun 23 2024 12:55PM EST Thank you for allowing us to participate in the care of your patient. Should there be any questions regarding this interpretation, please call [phone]. If you are unable to reach us at the number above, please feel free to contact [facility] at [phone]. DIVISION OF RADIOLOGY * * *Final Report* * * DATE OF EXAM: Jun 23 2024 10:41AM [facility] 0539 - CT CHEST W IVCON / PROCEDURE REASON: multiple diagnoses * * * * Physician Interpretation * * * * RESULT: EXAMINATION: CHEST CT WITH CONTRAST CLINICAL HISTORY: Rectal cancer Technique: Spiral CT acquisition of the chest from the thoracic inlet to the upper abdomen following IV contrast. MQ: CTCW_6 Contrast: 100 mL Omnipaque [address] Radiation dose: Integrated Dose-length product (DLP) for this visit = 1654 mGy*cm CT Dose Reduction Employed: Automated exposure control (AEC) Comparison: Previous chest CT dated 11/23/2023 and 07/16/2023 RESULT: Limitations: None. Lines, tubes, and devices: None. Lung parenchyma and airways: A 5 mm left upper lobe nodule on series 3 image 48 is unchanged. A few additional smaller pulmonary nodules are unchanged, for example see 2-3 mm nodule in the right upper lobe on series 3 image 44. No new pulmonary nodules or masses are identified. Minimal biapical pleural-parenchymal scarring is noted. Mild linear scarring is noted in both lower lobes and the lingula. No new airspace consolidation. The central airways are patent. Pleural space: No pleural effusion. No pleural thickening. Lower neck, lymph nodes, and mediastinum: The imaged thyroid gland is normal. No lymphadenopathy in the supraclavicular, axillary, mediastinal, or hilar regions. Heart, pericardium, and thoracic vessels: The thoracic aorta and main pulmonary artery are normal in caliber. The cardiac chambers are normal in size. No coronary artery atherosclerotic calcifications are noted, although the study is not optimized for coronary assessment. No pericardial effusion or thickening. Bones and soft tissues: No destructive bone lesion. Chest wall is unremarkable. Upper abdomen: Please see the separate report for the concurrently obtained CT of the abdomen/pelvis. Localizer images: No additional findings. DIVISION OF RADIOLOGY Provider, Mara Timo [facility] - 06/23/2024 * * *Final Report* * * DATE OF EXAM: Jun 23 2024 10:41AM [facility] 0539 - CT CHEST W IVCON / PROCEDURE REASON: multiple diagnoses * * * * Physician Interpretation * * * * RESULT: EXAMINATION: CHEST CT WITH CONTRAST CLINICAL HISTORY: Rectal cancer Technique: Spiral CT acquisition of the chest from the thoracic inlet to the upper abdomen following IV contrast. MQ: CTCW_6 Contrast: 100 mL Omnipaque [address] Radiation dose: Integrated Dose-length product (DLP) for this visit = 1654 mGy*cm CT Dose Reduction Employed: Automated exposure control (AEC) Comparison: Previous chest CT dated 11/23/2023 and 07/16/2023 RESULT: Limitations: None. Lines, tubes, and devices: None. Lung parenchyma and airways: A 5 mm left upper lobe nodule on series 3 image 48 is unchanged. A few additional smaller pulmonary nodules are unchanged, for example see 2-3 mm nodule in the right upper lobe on series 3 image 44. No new pulmonary nodules or masses are identified. Minimal biapical pleural-parenchymal scarring is noted. Mild linear scarring is noted in both lower lobes and the lingula. No new airspace consolidation. The central airways are patent. Pleural space: No pleural effusion. No pleural thickening. Lower neck, lymph nodes, and mediastinum: The imaged thyroid gland is normal. No lymphadenopathy in the supraclavicular, axillary, mediastinal, or hilar regions. Heart, pericardium, and thoracic vessels: The thoracic aorta and main pulmonary artery are normal in caliber. The cardiac chambers are normal in size. No coronary artery atherosclerotic calcifications are noted, although the study is not optimized for coronary assessment. No pericardial effusion or thickening. Bones and soft tissues: No destructive bone lesion. Chest wall is unremarkable. Upper abdomen: Please see the separate report for the concurrently obtained CT of the abdomen/pelvis. Localizer images: No additional findings. IMPRESSION IMPRESSION: 1. No CT evidence of new metastatic disease in the chest. 2. Unchanged pulmonary nodules measuring up to 5 mm. No new pulmonary nodules or masses are identified. Transcribe Date/Time: Jun 23 2024 12:45P Dictated by: ROBER BORJA MD This examination was interpreted and the report reviewed and electronically signed by: ROBER BORJA MD on Jun 23 2024 12:55PM EST Thank you for allowing us to participate in the care of your patient. Should there be any questions regarding this interpretation, please call [phone]. If you are unable to reach us at the number above, please feel free to contact [facility] eRadiology at [phone]. [facility] No Panel Informationon 06-23 Radiology Study observation (narrative) [facility] CNPNon 06-17-2024 CNPN Normal [facility] CNPNon 06-10-2024 CNPN Normal [facility] BASIC METABOLIC PANLon 06-08 Anion gap [Moles/Vol] 10 mmol/L Normal 5-15 [facility] Comment on above: Performed By: #### B MP #### [facility] ([id number]) [address] [place] [address] 26495 Calcium [Mass/Vol] 10.0 mg/dL Normal 8.5-10.5 [facility] Comment on above: Performed By: #### B MP #### [facility] ([id number]) [address] [place] [address] 73316 Chloride [Moles/Vol] 96 mmol/L Low 98-109 [facility] Comment on above: Performed By: #### B MP #### [facility] ([id number]) [address] [place] [address] 55715 CO2 [Moles/Vol] 26 mmol/L Normal 22-32 [facility] Comment on above: Performed By: #### B MP #### [facility] ([id number]) [address] [place] [address] 34089 Creatinine [Mass/Vol] 1.06 mg/dL High 0.40-1.00 [facility] Comment on above: Result Comment: METH OD TRACEABLE TO IDMS STANDARD Performed By: #### B MP #### [facility] ([id number]) [address] [place] [address] 69225 GFR/1.73 sq M.predicted among non-blacks MDRD (S/P/Bld) [Vol rate/Area] 58 mL/min/{1.73_m2} Low >59 [facility] Comment on above: Result Comment: Reported eGFR is based on the CKD-EPI 2020 equation that does not use a race coefficient. Performed By: #### B MP #### [facility] ([id number]) [address] [place] [address] 07404 Glucose [Mass/Vol] 214 mg/dL High 65-99 [facility] Comment on above: Performed By: #### B MP #### [facility] ([id number]) [address] [place] [address] 59495 Potassium [Moles/Vol] 4.4 mmol/L Normal 3.5-5.0 [facility] Comment on above: Performed By: #### B MP #### [facility] ([id number]) [address] [place] [address] 28327 Sodium [Moles/Vol] 132 mmol/L Low 134-146 [facility] Comment on above: Performed By: #### B MP #### [facility] ([id number]) [address] [place] [address] 88399 Urea nitrogen [Mass/Vol] 17 mg/dL Normal 5-27 [facility] Comment on above: Performed By: #### B MP #### [facility] ([id number]) [address] [place] [address] 34010 CBC AND AUTO DIFFon 06-08-19 25 ABSOLUTE BASOPHIL 0.1 X10E9/L Normal 0.0-0.2 [facility] Comment on above: Performed By: #### C TITUS, CMP, 3039-07, #### [facility] ([id number]) [address] [place] [address] 93825 ABSOLUTE NEUTROPHIL 3.9 X10E9/L Normal 1.5-6.6 [facility] Comment on above: Performed By: #### C TITUS, CMP, 3039-07, #### [facility] ([id number]) [address] [place] [address] 66529 Basophils/100 WBC (Bld) 1.1 % Normal [facility] Comment on above: Performed By: #### C TITUS, CMP, 3039-07, #### [facility] ([id number]) [address] [place] [address] 56400 Eosinophils (Bld) [#/Vol] 0.1 10*3/uL Normal 0.0-0.4 [facility] Comment on above: Performed By: #### C TITUS, CMP, 3039-07, #### [facility] ([id number]) [address] [place] [address] 05583 Eosinophils/100 WBC (Bld) 1.4 % Normal [facility] Comment on above: Performed By: #### C TITUS, CMP, 3039-07, #### [facility] ([id number]) [address] [place] [address] 60989 Erythrocyte distribution width (RBC) [Ratio] 13.3 % Normal 11.5-15.0 [facility] Comment on above: Performed By: #### C BCA, CMP, 3039-07, #### [facility] ([id number]) [address] [place] [address] 46958 Hematocrit (Bld) [Volume fraction] 36.7 % Normal 35-47 [facility] Comment on above: Performed By: #### C TITUS CMP, 3039-07, #### [facility] ([id number]) [address] [place] [address] 85117 Hemoglobin (Bld) [Mass/Vol] 12.7 g/dL Normal 11.7-15.5 [facility] Comment on above: Performed By: #### C TITUS CMP, 3039-07, #### [facility] ([id number]) [address] [place] [address] 28598 Lymphocytes (Bld) [#/Vol] 0.5 10*3/uL Low 1.0-3.5 [facility] Comment on above: Performed By: #### C TITUS CMP, 3039-07, #### [facility] ([id number]) [address] [place] [address] 34105 Lymphocytes/100 WBC (Bld) 10.2 % Normal [facility] Comment on above: Performed By: #### C TITUS CMP, 3039-07, #### [facility] ([id number]) [address] [place] [address] 24146 MCH (RBC) [Entitic mass] 28.7 pg Normal 27-34 [facility] Comment on above: Performed By: #### C TITUS CMP, 3039-07, #### [facility] ([id number]) [address] [place] [address] 92435 MCHC (RBC) [Mass/Vol] 34.6 g/dL Normal 32-36 [facility] Comment on above: Performed By: #### C TITUS CMP, 3039-07, #### [facility] ([id number]) [address] [place] [address] 73301 MCV (RBC) [Entitic vol] 83 fL Normal 80-100 [facility] Comment on above: Performed By: #### C TITUS, CMP, 3, 78176-3 #### [facility] ([id number]) [address] [place] [address] 19883 Monocytes (Bld) [#/Vol] 0.5 10*3/uL Normal 0-0.9 [facility] Comment on above: Performed By: #### C BCA, CMP, 3039-07, #### [facility] ([id number]) [address] [place] [address] 34931 Monocytes/100 WBC (Bld) 9.3 % Normal [facility] Comment on above: Performed By: #### Elva BCA, CMP, 3, #### [facility] ([id number]) [address] [place] [address] 38398 Neutrophils/100 WBC (Bld) 78.0 % Normal [facility] Comment on above: Performed By: #### C TITUS, CMP, 3039-07, 27017-1 #### [facility] ([id number]) [address] [place] [address] 19189 Platelet mean volume (Bld) [Entitic vol] 7.2 fL Normal 7-12 [facility] Comment on above: Performed By: #### Elva BCA, CMP, 3039-07, #### [facility] ([id number]) [address] [place] [address] 26413 Platelets (Bld) [#/Vol] 333 10*3/uL Normal 150-450 [facility] Comment on above: Performed By: #### C BCA, CMP, 3, #### [facility] ([id number]) [address] [place] [address] 39592 RBC COUNT 4.41 X10E12/L Normal 3.80-5.20 [facility] Comment on above: Performed By: #### C BCA, CMP, 0-3, 36427-8 #### [facility] ([id number]) [address] [place] [address] 34359 WBC (Bld) [#/Vol] 5.0 10*3/uL Normal 4.0-11.0 [facility] Comment on above: Performed By: #### C BCA, CMP, 3, #### [facility] ([id number]) [address] [place] [address] 40205 COMPREHENSIVE METABOLIC PANE Felix 06-08-2024 Albumin [Mass/Vol] 3.9 g/dL Normal 3.2-5.3 [facility] Comment on above: Performed By: #### C BCA, CMP, 3039-07, #### [facility] ([id number]) [address] [place] [address] 21145 ALP [Catalytic activity/Vol] 105 U/L Normal 39-130 [facility] Comment on above: Performed By: #### C BCA, CMP, 3039-07, #### [facility] ([id number]) [address] [place] [address] 09585 ALT [Catalytic activity/Vol] 18 U/L Normal 0-31 [facility] Comment on above: Performed By: #### C BCA, CMP, 3, 48219-0 #### [facility] ([id number]) [address] [place] [address] 14458 Anion gap [Moles/Vol] 11 mmol/L Normal 5-15 [facility] Comment on above: Performed By: #### C BCA, CMP, 3, #### [facility] ([id number]) [address] [place] [address] 66905 AST [Catalytic activity/Vol] 21 U/L Normal 0-41 [facility] Comment on above: Performed By: #### C BCA, CMP, 3039-07, #### [facility] ([id number]) [address] [place] [address] 32941 Bilirubin [Mass/Vol] 2.2 mg/dL High 0.3-1.2 [facility] Comment on above: Performed By: #### C BCA, CMP, 3039-07, #### [facility] ([id number]) [address] [place] [address] 23294 Calcium [Mass/Vol] 9.4 mg/dL Normal 8.5-10.5 [facility] Comment on above: Performed By: #### C TITUS, CMP, 3039-07, #### [facility] ([id number]) [address] [place] [address] 60632 Chloride [Moles/Vol] 94 mmol/L Low 98-109 [facility] Comment on above: Performed By: #### C TITUS, CMP, 3039-07, #### [facility] ([id number]) [address] [place] [address] 89442 CO2 [Moles/Vol] 27 mmol/L Normal 22-32 [facility] Comment on above: Performed By: #### C BCA, CMP, 3039-07, #### [facility] ([id number]) [address] [place] [address] 89469 Creatinine [Mass/Vol] 1.18 mg/dL High 0.40-1.00 [facility] Comment on above: Result Comment: METH OD TRACEABLE TO IDMS STANDARD Performed By: #### C BCA, CMP, 3039-07, #### [facility] ([id number]) [address] [place] [address] 17940 GFR/1.73 sq M.predicted among non-blacks MDRD (S/P/Bld) [Vol rate/Area] 51 mL/min/{1.73_m2} Low >59 [facility] Comment on above: Result Comment: Reported eGFR is based on the CKD-EPI 2020 equation that does not use a race coefficient. Performed By: #### C PHYLLIS QURESHI, 3039-07, #### [facility] ([id number]) [address] [place] [address] 79907 Glucose [Mass/Vol] 446 mg/dL Critically high 65-99 [facility] Comment on above: Performed By: #### C PHYLLIS QURESHI, 3039-07, #### [facility] ([id number]) [address] [place] [address] 70179 Potassium [Moles/Vol] 5.7 mmol/L High 3.5-5.0 [facility] Comment on above: Performed By: #### C PHYLLIS QURESHI, 3039-07, 85838-3 #### [facility] ([id number]) [address] [place] [address] 47687 Protein [Mass/Vol] 7.3 g/dL Normal 6.0-8.0 [facility] Comment on above: Performed By: #### C PHYLLIS QURESHI, 3039-07, #### [facility] ([id number]) [address] [place] [address] 72801 Sodium [Moles/Vol] 132 mmol/L Low 134-146 [facility] Comment on above: Performed By: #### C PHYLLIS QURESHI, 3039-07, #### [facility] ([id number]) [address] [place] [address] 27667 Urea nitrogen [Mass/Vol] 17 mg/dL Normal 5-27 [facility] Comment on above: Performed By: #### C PHYLLIS QURESHI, 3039-07, 02341-3 #### [facility] ([id number]) [address] [facility] [place] [address] CT ABDOMEN AND PELVIS W CONT on 06-08-2024 CT ABDOMEN AND PELVIS W CONT CT ABDOMEN AND PELVIS W CONT History: Patient currently undergoing chemotherapy for stage III colon cancer. Last treatment. Basal: 06/04/2024.. Abdominal pain, acute, nonlocalized Exam/Technique: Contiguous axial images are obtained of the abdomen and pelvis with 100 cc omnipaque 300 intravenous contrast. Coronal and sagittal reconstructions were performed and reviewed. Automatic dose exposure reduction technique utilized. Comparison: 10/28/2023. Findings: LUNGS AND CARDIOMEDIASTINAL STRUCTURES: no abnormality. LIVER: is normal. SPLEEN: is normal. GALLBLADDER: Surgically absent. BILIARY TREE:Normal PANCREAS: Noted to demonstrate a 7 mm cyst that is stable located in the pancreatic tail. There is no obvious ductal dilatation or any communication with the ductal system visualized.. ADRENAL GLANDS are normal. RIGHT KIDNEY: [Kidneys multiple cysts.. Cortical lobulation. No signicant complex cyst formation LEFT KIDNEY: Multiple cysts in the kidneys mild cortical lobulation.. No signicant complex cyst formation. ABDOMINAL AND PELVIC VASCULATURE: atheroschlerotic calcification which extends into the iliac system without aneurysm formation. PORTAL VEIN: Patent IVC is normal. There is no paraaortic or paracaval adenopathy. FREE AIR: Absent SIGNIFICANT FREE FLUID:absent MESENTERY: Normal BODY WALL: Normal SMALL BOWEL AND TERMINAL ILEUM: Fluid-filled small bowel without significant dilatation or any features of obstruction. Terminal ileum normal. COLON: Demonstrates no discrete mass. There is colonic diverticulosis in the sigmoid colon without acute diverticulitis. APPENDIX: normal. HERNIAL ORIFICES:normal. PELVIC ORGANS: [Phleboliths in the pelvis.. 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 IMPRESSION: No acute findings in the abdomen pelvis. Colonic diverticulosis without acute diverticulitis. 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 This was not present when compared to CT from 2010. Based on ACR criteria, recommend imaging every 2 years for approximately 10 years and evaluate for stability. All CT scans at this facility use dose modulation, iterative reconstruction, and/or weight based dosing when appropriate to reduce radiation dose to as low as reasonably achievable. Finalized by Waldemar Zamudio MD on 06/08/2024 6:53 PM Normal [facility] Glucose Glucometer (BldC) [M ass/Vol]on 06-08-2024 Glucose [Mass/Vol] 218 mg/dL High 65-99 [facility] Glucose [Mass/Vol] 262 mg/dL High 65-99 [facility] LIPASEon 06-08-2024 Lipase [Catalytic activity/Vol] 87 U/L High 17-40 [facility] Comment on above: Performed By: #### C TITUS CMP, 3040-3, 46638-6 #### [facility] ([id number]) [address] [place] [address] 45077 MAGNESIUMon 06-08-2024 Magnesium [Mass/Vol] 1.8 mg/dL Normal 1.8-2.6 [facility] Comment on above: Performed By: #### C BCA, CMP, 3040-3, 03764-9 #### [facility] ([id number]) [address] [place] [address] 09406 CNPNon 06-05-2024 CNPN Normal [facility] CBC W Auto Differential pane l (Bld)on 06-04-2024 Basophils (Bld) [#/Vol] 0.04 10*3/uL Normal <0.11 [facility] Comment on above: Order Comment: Speci men Type: BLOOD SPECIMENOrdering Facility: [facility] Address: [address] [place] [address] Performed By: #### 5 7021-8 ####[facility] LABCLIA [id number] [place] [address] Basophils/100 WBC (Bld) 1.0 % Normal [facility] Comment on above: Order Comment: Speci men Type: BLOOD SPECIMENOrdering Facility: [facility] Address: [address] [place] [address] Performed By: #### 5 7021-8 ####[facility] LABCLIA [id number] [place] [address] Differential cell count method Nom (Bld) Auto Normal [facility] Comment on above: Order Comment: Speci men Type: BLOOD SPECIMENOrdering Facility: [facility] Address: [address] [place] [address] Performed By: #### 5 7021-8 ####[facility] LABCLIA [id number] [place] [address] Eosinophils (Bld) [#/Vol] 0.33 10*3/uL Normal <0.46 [facility] Comment on above: Order Comment: Speci men Type: BLOOD SPECIMENOrdering Facility: [facility] Address: [address] [place] [address] Performed By: #### 5 7021-8 ####[facility] LABCLIA [id number] [place] [address] Eosinophils/100 WBC (Bld) 8.1 % Normal [facility] Comment on above: Order Comment: Speci men Type: BLOOD SPECIMENOrdering Facility: [facility] Address: [address] [place] [address] Performed By: #### 5 7021-8 ####[facility] LABCLIA [id number] [place] [address] Erythrocyte distribution width (RBC) [Ratio] 12.7 % Normal 11.5-15.0 [facility] Comment on above: Order Comment: Speci men Type: BLOOD SPECIMENOrdering Facility: [facility] Address: [address] [place] [address] Performed By: #### 5 7021-8 ####[facility] LABCLIA [id number] [place] [address] Hematocrit (Bld) [Volume fraction] 34.7 % Low 36.0-46.0 [facility] Comment on above: Order Comment: Speci men Type: BLOOD SPECIMENOrdering Facility: [facility] Address: [address] [place] [address] Performed By: #### 5 7021-8 ####[facility] LABCLIA [id number] [place] [address] Hemoglobin (Bld) [Mass/Vol] 12.0 g/dL Normal 11.5-15.5 [facility] Comment on above: Order Comment: Speci men Type: BLOOD SPECIMENOrdering Facility: [facility] Address: [address] [place] [address] Performed By: #### 5 7021-8 ####[facility] LABCLIA [id number] [place] [address] Immature granulocytes (Bld) [#/Vol] 0.03 10*3/uL Normal <0.10 [facility] Comment on above: Order Comment: Speci men Type: BLOOD SPECIMENOrdering Facility: [facility] Address: [address] [place] [address] Performed By: #### 5 7021-8 ####[facility] LABCLIA [id number] [place] [address] Immature granulocytes/100 WBC (Bld) 0.7 % Normal [facility] Comment on above: Order Comment: Speci men Type: BLOOD SPECIMENOrdering Facility: [facility] Address: [address] [place] [address] Performed By: #### 5 7021-8 ####[facility] LABCLIA [id number] [place] [address] Lymphocytes (Bld) [#/Vol] 0.31 10*3/uL Low 1.00-4.00 [facility] Comment on above: Order Comment: Speci men Type: BLOOD SPECIMENOrdering Facility: [facility] Address: [address] [place] [address] Performed By: #### 5 7021-8 ####[facility] LABCLIA [id number] [place] [address] Lymphocytes/100 WBC (Bld) 7.6 % Normal [facility] Comment on above: Order Comment: Speci men Type: BLOOD SPECIMENOrdering Facility: [facility] Address: [address] [place], [place] [address] Performed By: #### 5 7021-8 ####[facility] LABCLIA [id number] [place] [address] MCH (RBC) [Entitic mass] 28.6 pg Normal 26.0-34.0 [facility] Comment on above: Order Comment: Speci men Type: BLOOD SPECIMENOrdering Facility: [facility] Address: [address] [place] [address] Performed By: #### 5 7021-8 ####[facility] LABIA [id number] [place] [address] MCHC (RBC) [Mass/Vol] 34.6 g/dL Normal 30.5-36.0 [facility] Comment on above: Order Comment: Speci men Type: BLOOD SPECIMENOrdering Facility: [facility] Address: [address] [place] [address] Performed By: #### 5 7021-8 ####[facility] LABCLIA [id number] [place] [address] MCV (RBC) [Entitic vol] 82.8 fL Normal 80.0-100.0 [facility] Comment on above: Order Comment: Speci men Type: BLOOD SPECIMENOrdering Facility: [facility] Address: [address] [place] [address] 10753 Performed By: #### 5 7021-8 ####[facility] LABIA [id number] [place] [address] Monocytes (Bld) [#/Vol] 0.43 10*3/uL Normal <0.87 [facility] Comment on above: Order Comment: Speci men Type: BLOOD SPECIMENOrdering Facility: [facility] Address: [address] [place] [address] Performed By: #### 5 7021-8 ####[facility] LABCLIA [id number] [place] [address] Monocytes/100 WBC (Bld) 10.5 % Normal [facility] Comment on above: Order Comment: Speci men Type: BLOOD SPECIMENOrdering Facility: [facility] Address: [address] [place] [address] Performed By: #### 5 7021-8 ####[facility] LABCLIA [id number] [place] [address] Neutrophils (Bld) [#/Vol] 2.94 10*3/uL Normal 1.45-7.50 [facility] Comment on above: Order Comment: Speci men Type: BLOOD SPECIMENOrdering Facility: [facility] Address: [address] [place] [address] Performed By: #### 5 7021-8 ####[facility] LABCLIA [id number] [place] [address] Neutrophils/100 WBC (Bld) 72.1 % Normal [facility] Comment on above: Order Comment: Speci men Type: BLOOD SPECIMENOrdering Facility: [facility] Address: [address] [place] [address] Performed By: #### 5 7021-8 ####[facility] LABCLIA [id number] [place] [address] Nucleated RBC (Bld) [#/Vol] 10*3/uL Normal <0.01 [facility] Comment on above: Order Comment: Speci men Type: BLOOD SPECIMENOrdering Facility: [facility] Address: [address] [place] [address] Performed By: #### 5 7021-8 ####[facility] LABCLIA [id number] [place] [address] Nucleated RBC/100 WBC (Bld) [Ratio] 0.0 /100 WBC Normal [facility] Comment on above: Order Comment: Speci men Type: BLOOD SPECIMENOrdering Facility: [facility] Address: [address] [place] [address] Performed By: #### 5 7021-8 ####[facility] LABCLIA [id number] [place] [address] Platelet mean volume (Bld) [Entitic vol] 8.8 fL Low 9.0-12.7 [facility] Comment on above: Order Comment: Speci men Type: BLOOD SPECIMENOrdering Facility: [facility] Address: [address] [place] [address] Performed By: #### 5 7021-8 ####[facility] LABCLIA [id number] [place] [address] Platelets (Bld) [#/Vol] 261 10*3/uL Normal 150-400 [facility] Comment on above: Order Comment: Speci men Type: BLOOD SPECIMENOrdering Facility: [facility] Address: [address] [place] [address] Performed By: #### 5 7021-8 ####[facility] LABCLIA [id number] [place] [address] RBC (Bld) [#/Vol] 4.19 10*6/uL Normal 3.90-5.20 [facility] Comment on above: Order Comment: Speci men Type: BLOOD SPECIMENOrdering Facility: [facility] Address: [address] [place] [address] Performed By: #### 5 7021-8 ####[facility] LABCLIA [id number] [place] [address] WBC (Bld) [#/Vol] 4.08 10*3/uL Normal 3.70-11.00 [facility] Comment on above: Order Comment: Speci men Type: BLOOD SPECIMENOrdering Facility: [facility] Address: [address] [place] [address] Performed By: #### 5 7021-8 ####[facility] LABCLIA [id number] [place] [id number] CEA SerPl-mCncon 06-04-2024 Carcinoembryonic Ag [Mass/Vol] 5.1 ng/mL High <=2.9 [facility] Comment on above: Order Comment: Speci men Type: BLOOD SPECIMENOrdering Facility: [facility] Address: [address] [place] [address] Result Comment: Carc inoembryonic antigen test is used as an aid in monitoring response to treatment or recurrence in patients with established colorectal, breast, lung, prostatic, pancreatic, and ovarian carcinomas. Clinical correlation is required.The Carcinoembryonic antigen test was performed using the [employer] DXI paramagnetic particle chemiluminescent immunoassay method. Results obtained with different assay methods or kits cannot be used interchangeably. Performed By: #### 2 039-6 ####[facility] LABCLIA [id number] [place] [address] [place] CNOVSPon 06-04-2024 CNOVSP Normal [facility] CNPNon 06-04-2024 CNPN Normal [facility] Comprehensive metabolic 2000 panelon 06-04-2024 Albumin [Mass/Vol] 4.0 g/dL Normal 3.9-4.9 [facility] Comment on above: Order Comment: Speci men Type: BLOOD SPECIMENOrdering Facility: [facility] Address: [address] [place] [address] Performed By: #### 2 4323-8 ####[facility] LABCLIA [id number] [place] [id number] ALP [Catalytic activity/Vol] 118 U/L Normal 34-123 [facility] Comment on above: Order Comment: Speci men Type: BLOOD SPECIMENOrdering Facility: [facility] Address: [address] [place] [address] Performed By: #### 2 4323-8 ####[facility] LABCLIA [id number] [place] [address] ALT [Catalytic activity/Vol] 13 U/L Normal 7-38 [facility] Comment on above: Order Comment: Speci men Type: BLOOD SPECIMENOrdering Facility: [facility] Address: [address] [place] [address] Performed By: #### 2 4323-8 ####[facility] LABCLIA [id number] [place] [address] Anion gap [Moles/Vol] 10 mmol/L Normal 8-15 [facility] Comment on above: Order Comment: Speci men Type: BLOOD SPECIMENOrdering Facility: [facility] Address: [address] [place] [address] Performed By: #### 2 4323-8 ####[facility] LABCLIA [id number] [place] [address] AST [Catalytic activity/Vol] 13 U/L Normal 13-35 [facility] Comment on above: Order Comment: Speci men Type: BLOOD SPECIMENOrdering Facility: [facility] Address: [address] [place] [address] Performed By: #### 2 4323-8 ####[facility] LABCLIA [id number] [place] [address] Bilirubin [Mass/Vol] 1.2 mg/dL Normal 0.2-1.3 [facility] Comment on above: Order Comment: Speci men Type: BLOOD SPECIMENOrdering Facility: [facility] Address: [address] [place] [address] Performed By: #### 2 4323-8 ####[facility] LABCLIA [id number] [place] [address] Calcium [Mass/Vol] 10.1 mg/dL Normal 8.5-10.2 [facility] Comment on above: Order Comment: Speci men Type: BLOOD SPECIMENOrdering Facility: [facility] Address: [address] [place] [address] Performed By: #### 2 4323-8 ####[facility] LABCLIA [id number] [place] [address] Chloride [Moles/Vol] 96 mmol/L Low 98-107 [facility] Comment on above: Order Comment: Speci men Type: BLOOD SPECIMENOrdering Facility: [facility] Address: [address] [place] [address] Performed By: #### 2 4323-8 ####[facility] LABCLIA [id number] [place] [address] CO2 [Moles/Vol] 27 mmol/L Normal 22-30 [facility] Comment on above: Order Comment: Speci men Type: BLOOD SPECIMENOrdering Facility: [facility] Address: [address] [place] [address] Performed By: #### 2 4323-8 ####[facility] LABCLIA [id number] [place] [address] Creatinine [Mass/Vol] 0.94 mg/dL Normal 0.58-0.96 [facility] Comment on above: Order Comment: Speci men Type: BLOOD SPECIMENOrdering Facility: [facility] Address: [address] [place] [address] Performed By: #### 2 4323-8 ####[facility] LABCLIA [id number] [place] [address] Creatinine and Glomerular filtration rate.predicted panel (S/P/Bld) 67 mL/min/1.73m??? Normal >=60 [facility] Comment on above: Order Comment: Speci men Type: BLOOD SPECIMENOrdering Facility: [facility] Address: [address] [place] [address] Result Comment: Lisbeth mated Glomerular Filtration Rate (eGFR) is calculated using the 2020 CKD-EPI creatinine equation. This equation utilizes serum creatinine, sex, and age as parameters. The creatinine assay has traceable calibration to isotope dilution-mass spectrometry. Refer to KDIGO guidelines for clinical interpretation. In patients with unstable renal function, e.g. those with acute kidney injury, the eGFR may not accurately reflect actual GFR. Performed By: #### 2 4323-8 ####[facility] LABIA [id number] [place] [address] Glucose [Mass/Vol] 439 mg/dL High 74-99 [facility] Comment on above: Order Comment: Speci men Type: BLOOD SPECIMENOrdering Facility: [facility] Address: [address] [place] [address] Result Comment: The [place] Diabetes [employer] (ADA) provides guidance for cutoff values for fasting glucose and random glucose. The ADA defines fasting as no caloric intake for at least 8 hours. Fasting plasma glucose results between 100 to 125 mg/dL indicate increased risk for diabetes (prediabetes).Fasting plasma glucose results greater than or equal to 126 mg/dL meet the criteria for diagnosis of diabetes. In the absence of unequivocal hyperglycemia, results should be confirmed by repeat testing. In a patient with classic symptoms of hyperglycemia or hyperglycemic crisis, random plasma glucose results greater than or equal to 200 mg/dL meet the criteria for diagnosis of diabetes.Reference: Standards of Medical Care in Diabetes 2016, [place] [employer]. Diabetes Care. 2016.39(Suppl 1). Performed By: #### 2 4323-8 ####[facility] LABIA [id number] [place] [address] Potassium [Moles/Vol] 3.6 mmol/L Low 3.7-5.1 [facility] Comment on above: Order Comment: Speci men Type: BLOOD SPECIMENOrdering Facility: [facility] Address: [address] [place] [address] Performed By: #### 2 4323-8 ####[facility] LABCLIA [id number] [place] [address] Protein [Mass/Vol] 7.0 g/dL Normal 6.3-8.0 [facility] Comment on above: Order Comment: Milady men Type: BLOOD SPECIMENOrdering Facility: [facility] Address: [address] [place] [address] Performed By: #### 2 4323-8 ####[facility] LABCLIA [id number] [place] [address] Sodium [Moles/Vol] 133 mmol/L Low 136-144 [facility] Comment on above: Order Comment: Speci men Type: BLOOD SPECIMENOrdering Facility: [facility] Address: [address] [place] [address] Performed By: #### 2 4323-8 ####[facility] LABCLIA [id number] [place] [address] Urea nitrogen [Mass/Vol] 16 mg/dL Normal 7-21 [facility] Comment on above: Order Comment: Speci men Type: BLOOD SPECIMENOrdering Facility: [facility] Address: [address] [place] [address] Performed By: #### 2 4323-8 ####[facility] LABCLIA [id number] [place] [address] CNPNon 05-23-2024 CNPN Normal [facility] CBC W Auto Differential pane l (Bld)on 05-16-2024 Basophils (Bld) [#/Vol] 0.03 10*3/uL Normal <0.11 [facility] Comment on above: Order Comment: Speci men Type: BLOOD SPECIMENOrdering Facility: [facility] Address: [address] [place] [address] Performed By: #### 5 7021-8 ####[facility] LABCLIA [id number] [place] [address] Basophils/100 WBC (Bld) 0.5 % Normal C [facility] Comment on above: Order Comment: Speci men Type: BLOOD SPECIMENOrdering Facility: [facility] Address: [address] [place] [address] Performed By: #### 5 7021-8 ####[facility] LABCLIA [id number] [place] [address] Differential cell count method Nom (Bld) Auto Normal [facility] Comment on above: Order Comment: Speci men Type: BLOOD SPECIMENOrdering Facility: [facility] Address: [address] [place] [address] Performed By: #### 5 7021-8 ####[facility] LABCLIA [id number] [place] [address] Eosinophils (Bld) [#/Vol] 0.28 10*3/uL Normal <0.46 [facility] Comment on above: Order Comment: Speci men Type: BLOOD SPECIMENOrdering Facility: [facility] Address: [address] [place] [address] Performed By: #### 5 7021-8 ####[facility] LABCLIA [id number] [place] [address] Eosinophils/100 WBC (Bld) 4.9 % Normal [facility] Comment on above: Order Comment: Speci men Type: BLOOD SPECIMENOrdering Facility: [facility] Address: [address] [place] [address] Performed By: #### 5 7021-8 ####[facility] LABCLIA [id number] [place] [address] Erythrocyte distribution width (RBC) [Ratio] 12.8 % Normal 11.5-15.0 [facility] Comment on above: Order Comment: Speci men Type: BLOOD SPECIMENOrdering Facility: [facility] Address: [address] [place] [address] Performed By: #### 5 7021-8 ####[facility] LABCLIA [id number] [place] [address] Hematocrit (Bld) [Volume fraction] 34.9 % Low 36.0-46.0 [facility] Comment on above: Order Comment: Speci men Type: BLOOD SPECIMENOrdering Facility: [facility] Address: [address] [place] [address] Performed By: #### 5 7021-8 ####[facility] LABCLIA [id number] [place] [address] Hemoglobin (Bld) [Mass/Vol] 12.4 g/dL Normal 11.5-15.5 [facility] Comment on above: Order Comment: Speci men Type: BLOOD SPECIMENOrdering Facility: [facility] Address: [address] [place] [address] Performed By: #### 5 7021-8 ####[facility] LABCLIA [id number] [place] [address] Immature granulocytes (Bld) [#/Vol] 0.06 10*3/uL Normal <0.10 [facility] Comment on above: Order Comment: Speci men Type: BLOOD SPECIMENOrdering Facility: [facility] Address: [address] [place] [address] Performed By: #### 5 7021-8 ####[facility] LABIA [id number] [place] [address] Immature granulocytes/100 WBC (Bld) 1.0 % Normal [facility] Comment on above: Order Comment: Speci men Type: BLOOD SPECIMENOrdering Facility: [facility] Address: [address] [place] [address] Performed By: #### 5 7021-8 ####[facility] LABCLIA [id number] [place] [address] Lymphocytes (Bld) [#/Vol] 0.54 10*3/uL Low 1.00-4.00 [facility] Comment on above: Order Comment: Speci men Type: BLOOD SPECIMENOrdering Facility: [facility] Address: [address] [place] [address] Performed By: #### 5 7021-8 ####[facility] LABCLIA [id number] [place] [address] Lymphocytes/100 WBC (Bld) 9.4 % Normal [facility] Comment on above: Order Comment: Speci men Type: BLOOD SPECIMENOrdering Facility: [facility] Address: [address] [place] [address] Performed By: #### 5 7021-8 ####[facility] LABCLIA [id number] [place] [address] MCH (RBC) [Entitic mass] 29.2 pg Normal 26.0-34.0 [facility] Comment on above: Order Comment: Speci men Type: BLOOD SPECIMENOrdering Facility: [facility] Address: [address] [place] [address] Performed By: #### 5 7021-8 ####[facility] LABCLIA [id number] [place] [address] MCHC (RBC) [Mass/Vol] 35.5 g/dL Normal 30.5-36.0 [facility] Comment on above: Order Comment: Speci men Type: BLOOD SPECIMENOrdering Facility: [facility] Address: [address] [place] [address] Performed By: #### 5 7021-8 ####[facility] LABIA [id number] [place] [address] MCV (RBC) [Entitic vol] 82.3 fL Normal 80.0-100.0 [facility] Comment on above: Order Comment: Speci men Type: BLOOD SPECIMENOrdering Facility: [facility] Address: [address] [place] [address] Performed By: #### 5 7021-8 ####[facility] LABIA [id number] [place] [address] Monocytes (Bld) [#/Vol] 0.52 10*3/uL Normal <0.87 [facility] Comment on above: Order Comment: Speci men Type: BLOOD SPECIMENOrdering Facility: [facility] Address: [address] [place] [address] Performed By: #### 5 7021-8 ####[facility] LABIA [id number] [place] [address] Monocytes/100 WBC (Bld) 9.1 % Normal C [facility] Comment on above: Order Comment: Speci men Type: BLOOD SPECIMENOrdering Facility: [facility] Address: [address] [place] [address] Performed By: #### 5 7021-8 ####[facility] LABCLIA [id number] [place] [address] Neutrophils (Bld) [#/Vol] 4.30 10*3/uL Normal 1.45-7.50 [facility] Comment on above: Order Comment: Speci men Type: BLOOD SPECIMENOrdering Facility: [facility] Address: [address] [place] [address] Performed By: #### 5 7021-8 ####[facility] LABCLIA [id number] [place] [address] Neutrophils/100 WBC (Bld) 75.1 % Normal [facility] Comment on above: Order Comment: Speci men Type: BLOOD SPECIMENOrdering Facility: [facility] Address: [address] [place] [address] Performed By: #### 5 7021-8 ####[facility] LABCLIA [id number] [place] [address] Nucleated RBC (Bld) [#/Vol] 10*3/uL Normal <0.01 [facility] Comment on above: Order Comment: Speci men Type: BLOOD SPECIMENOrdering Facility: [facility] Address: [address] [place] [address] Performed By: #### 5 7021-8 ####[facility] LABCLIA [id number] [place] [address] Nucleated RBC/100 WBC (Bld) [Ratio] 0.0 /100 WBC Normal [facility] Comment on above: Order Comment: Speci men Type: BLOOD SPECIMENOrdering Facility: [facility] Address: [address] [place] [address] Performed By: #### 5 7021-8 ####[facility] LABCLIA [id number] [place] [address] Platelet mean volume (Bld) [Entitic vol] 8.4 fL Low 9.0-12.7 [facility] Comment on above: Order Comment: Speci men Type: BLOOD SPECIMENOrdering Facility: [facility] Address: [address] [place] [address] Performed By: #### 5 7021-8 ####[facility] LABCLIA [id number] [place] [address] Platelets (Bld) [#/Vol] 276 10*3/uL Normal 150-400 [facility] Comment on above: Order Comment: Speci men Type: BLOOD SPECIMENOrdering Facility: [facility] Address: [address] [place] [address] Performed By: #### 5 7021-8 ####[facility] LABIA [id number] [place] [address] RBC (Bld) [#/Vol] 4.24 10*6/uL Normal 3.90-5.20 [facility] Comment on above: Order Comment: Speci men Type: BLOOD SPECIMENOrdering Facility: [facility] Address: [address] [place] [address] Performed By: #### 5 7021-8 ####[facility] LABIA [id number] [place] [address] WBC (Bld) [#/Vol] 5.73 10*3/uL Normal 3.70-11.00 [facility] Comment on above: Order Comment: Speci men Type: BLOOD SPECIMENOrdering Facility: [facility] Address: [address] [place] [address] Performed By: #### 5 7021-8 ####[facility] LABCLIA [id number] [place] [address] CEA SerPl-mCncon 05-16-2024 Carcinoembryonic Ag [Mass/Vol] 4.0 ng/mL High <=2.9 [facility] Comment on above: Order Comment: Speci men Type: BLOOD SPECIMENOrdering Facility: [facility] Address: [address] [place] [address] Result Comment: Carc inoembryonic antigen test is used as an aid in monitoring response to treatment or recurrence in patients with established colorectal, breast, lung, prostatic, pancreatic, and ovarian carcinomas. Clinical correlation is required.The Carcinoembryonic antigen test was performed using the [employer] DXI paramagnetic particle chemiluminescent immunoassay method. Results obtained with different assay methods or kits cannot be used interchangeably. Performed By: #### 2 039-6 ####[facility] LABCLIA [id number] [place] [address] [place] CNOVSPon 05-16-2024 CNOVSP Normal [facility] Comprehensive metabolic 2000 panelon 05-16-2024 Albumin [Mass/Vol] 3.9 g/dL Normal 3.9-4.9 [facility] Comment on above: Order Comment: Speci men Type: BLOOD SPECIMENOrdering Facility: [facility] Address: [address] [place] [address] Performed By: #### 2 4323-8 ####[facility] LABCLIA [id number] [place] [address] ALP [Catalytic activity/Vol] 131 U/L High 34-123 [facility] Comment on above: Order Comment: Speci men Type: BLOOD SPECIMENOrdering Facility: [facility] Address: [address] [place] [address] Performed By: #### 2 4323-8 ####[facility] LABCLIA [id number] [place] [address] ALT [Catalytic activity/Vol] 8 U/L Normal 7-38 [facility] Comment on above: Order Comment: Speci men Type: BLOOD SPECIMENOrdering Facility: [facility] Address: [address] [place] [address] Performed By: #### 2 4323-8 ####[facility] LABCLIA [id number] [place] [address] Anion gap [Moles/Vol] 10 mmol/L Normal 8-15 [facility] Comment on above: Order Comment: Speci men Type: BLOOD SPECIMENOrdering Facility: [facility] Address: [address] [place] [address] Performed By: #### 2 4323-8 ####[facility] LABCLIA [id number] [place] [address] AST [Catalytic activity/Vol] 9 U/L Low 13-35 [facility] Comment on above: Order Comment: Speci men Type: BLOOD SPECIMENOrdering Facility: [facility] Address: [address] [place] [address] Performed By: #### 2 4323-8 ####[facility] LABCLIA [id number] [place] [address] Bilirubin [Mass/Vol] 1.0 mg/dL Normal 0.2-1.3 [facility] Comment on above: Order Comment: Speci men Type: BLOOD SPECIMENOrdering Facility: [facility] Address: [address] [place] [address] Performed By: #### 2 4323-8 ####[facility] LABCLIA [id number] [place] [address] Calcium [Mass/Vol] 9.4 mg/dL Normal 8.5-10.2 [facility] Comment on above: Order Comment: Speci men Type: BLOOD SPECIMENOrdering Facility: [facility] Address: [address] [place] [address] Performed By: #### 2 4323-8 ####[facility] LABCLIA [id number] [place] [address] Chloride [Moles/Vol] 99 mmol/L Normal 98-107 [facility] Comment on above: Order Comment: Speci men Type: BLOOD SPECIMENOrdering Facility: [facility] Address: [address] [place] [address] Performed By: #### 2 4323-8 ####[facility] LABCLIA [id number] [place] [address] CO2 [Moles/Vol] 27 mmol/L Normal 22-30 [facility] Comment on above: Order Comment: Speci men Type: BLOOD SPECIMENOrdering Facility: [facility] Address: [address] [place] [address] Performed By: #### 2 4323-8 ####[facility] LABCLIA [id number] [place] [address] Creatinine [Mass/Vol] 0.83 mg/dL Normal 0.58-0.96 [facility] Comment on above: Order Comment: Speci men Type: BLOOD SPECIMENOrdering Facility: [facility] Address: [address] [place] [address] Performed By: #### 2 4323-8 ####[facility] LABCLIA [id number] [place] [address] Creatinine and Glomerular filtration rate.predicted panel (S/P/Bld) 78 mL/min/1.73m??? Normal >=60 [facility] Comment on above: Order Comment: Speci men Type: BLOOD SPECIMENOrdering Facility: [facility] Address: [address] [place] [address] Result Comment: Lisbeth mated Glomerular Filtration Rate (eGFR) is calculated using the 2020 CKD-EPI creatinine equation. This equation utilizes serum creatinine, sex, and age as parameters. The creatinine assay has traceable calibration to isotope dilution-mass spectrometry. Refer to KDIGO guidelines for clinical interpretation. In patients with unstable renal function, e.g. those with acute kidney injury, the eGFR may not accurately reflect actual GFR. Performed By: #### 2 4323-8 ####[facility] LABCLIA [id number] [place] [address] Glucose [Mass/Vol] 287 mg/dL High 74-99 [facility] Comment on above: Order Comment: Speci men Type: BLOOD SPECIMENOrdering Facility: [facility] Address: [address] [place], [place] [address] Result Comment: The [place] [employer] (ADA) provides guidance for cutoff values for fasting glucose and random glucose. The ADA defines fasting as no caloric intake for at least 8 hours. Fasting plasma glucose results between 100 to 125 mg/dL indicate increased risk for diabetes (prediabetes).Fasting plasma glucose results greater than or equal to 126 mg/dL meet the criteria for diagnosis of diabetes. In the absence of unequivocal hyperglycemia, results should be confirmed by repeat testing. In a patient with classic symptoms of hyperglycemia or hyperglycemic crisis, random plasma glucose results greater than or equal to 200 mg/dL meet the criteria for diagnosis of diabetes.Reference: Standards of Medical Care in Diabetes 2016, [place] [employer]. Diabetes Care. 2016.39(Suppl 1). Performed By: #### 2 4323-8 ####[facility] LABCLIA [id number] [place] [address] Potassium [Moles/Vol] 4.3 mmol/L Normal 3.7-5.1 [facility] Comment on above: Order Comment: Speci men Type: BLOOD SPECIMENOrdering Facility: [facility] Address: [address] [place], [place] [address] Performed By: #### 2 4323-8 ####[facility] LABCLIA [id number] [place] [address] Protein [Mass/Vol] 6.6 g/dL Normal 6.3-8.0 [facility] Comment on above: Order Comment: Speci men Type: BLOOD SPECIMENOrdering Facility: [facility] Address: [address] [place], [place] [address] Performed By: #### 2 4323-8 ####[facility] LABCLIA [id number] [place] [address] Sodium [Moles/Vol] 136 mmol/L Normal 136-144 [facility] Comment on above: Order Comment: Speci men Type: BLOOD SPECIMENOrdering Facility: [facility] Address: [address] [place] [address] Performed By: #### 2 4323-8 ####[facility] LABCLIA [id number] [place] [address] Urea nitrogen [Mass/Vol] 11 mg/dL Normal 7-21 [facility] Comment on above: Order Comment: Speci men Type: BLOOD SPECIMENOrdering Facility: [facility] Address: [address] [place] [place] [address] Performed By: #### 2 4323-8 ####[facility] LABCLIA [id number] [place] [address] COMPREHENSIVE METABOLIC PANE Felix 05-08-2024 Albumin [Mass/Vol] 3.8 g/dL Normal 3.2-5.3 [facility] Comment on above: Performed By: #### Elva PIERSON 14458-5 #### [facility] ([id number]) [address] [place] [address] ALP [Catalytic activity/Vol] 116 U/L Normal 39-130 [facility] Comment on above: Performed By: #### Elva PIERSON, 71816-1 #### [facility] ([id number]) [address] [place] [address] ALT [Catalytic activity/Vol] 14 U/L Normal 0-31 [facility] Comment on above: Performed By: #### Elva PIERSON, 19462-5 #### [facility] ([id number]) [address] [place] [address] Anion gap [Moles/Vol] 10 mmol/L Normal 5-15 [facility] Comment on above: Performed By: #### Elva PIERSON, 24491-1 #### [facility] ([id number]) [address] [place] [address] AST [Catalytic activity/Vol] 16 U/L Normal 0-41 [facility] Comment on above: Performed By: #### Elva PIERSON, 56323-2 #### [facility] ([id number]) [address], [address] [place] [address] Bilirubin [Mass/Vol] 1.1 mg/dL Normal 0.3-1.2 [facility] Comment on above: Performed By: #### Elva PIERSON, 80939-3 #### [facility] ([id number]) [address], [address] [place] [address] Calcium [Mass/Vol] 9.6 mg/dL Normal 8.5-10.5 [facility] Comment on above: Performed By: #### Elva PIERSON, 92483-2 #### [facility] ([id number]) [address] [place] [address] Chloride [Moles/Vol] 100 mmol/L Normal 98-109 [facility] Comment on above: Performed By: #### Elva PIERSON, 76513-1 #### [facility] ([id number]) [address], [address] [place] [address] CO2 [Moles/Vol] 27 mmol/L Normal 22-32 [facility] Comment on above: Performed By: #### Elva PIERSON, 76236-7 #### [facility] ([id number]) [address], [address] [place] [address] Creatinine [Mass/Vol] 0.96 mg/dL Normal 0.40-1.00 [facility] Comment on above: Result Comment: METH OD TRACEABLE TO IDMS STANDARD Performed By: #### Elva PIERSON, 47830-4 #### [facility] ([id number]) [address], [address] [place] [address] GFR/1.73 sq M.predicted among non-blacks MDRD (S/P/Bld) [Vol rate/Area] 65 mL/min/{1.73_m2} Normal >59 [facility] Comment on above: Result Comment: Reported eGFR is based on the CKD-EPI 2020 equation that does not use a race coefficient. Performed By: #### Elva PIERSON, 37512-6 #### [facility] ([id number]) [address], [address] [place] [address] Glucose [Mass/Vol] 289 mg/dL High 65-99 [facility] Comment on above: Performed By: #### Elva PIERSON 96103-2 #### [facility] ([id number]) [address], [address] [place] [address] Potassium [Moles/Vol] 3.5 mmol/L Normal 3.5-5.0 [facility] Comment on above: Performed By: #### Elva PIERSON 32712-2 #### [facility] ([id number]) [address], [address] [place] [address] Protein [Mass/Vol] 6.8 g/dL Normal 6.0-8.0 [facility] Comment on above: Performed By: #### Elva PIERSON 85857-5 #### [facility] ([id number]) [address], [address] [place] [address] Sodium [Moles/Vol] 137 mmol/L Normal 134-146 [facility] Comment on above: Performed By: #### Elva PIERSON 40934-2 #### [facility] ([id number]) [address], [address] [place] [address] Urea nitrogen [Mass/Vol] 8 mg/dL Normal 5-27 [facility] Comment on above: Performed By: #### Elva PIERSON 87092-4 #### [facility] ([id number]) [address], [address] [place] [address] Comprehensive metabolic pane felix 05-08-2024 Albumin [Mass/Vol] 3.8 g/dL 3.2 - 5.3 g/dL [facility] ALP [Catalytic activity/Vol] 116 U/L 39 - 130 U/L [facility] ALT No additional P-5'-P [Catalytic activity/Vol] 14 U/L 0 - 31 U/L [facility] Anion gap [Moles/Vol] 10 mmol/L 5 - 15 mmol/L [facility] AST [Catalytic activity/Vol] 16 U/L 0 - 41 U/L [facility] Bilirubin [Mass/Vol] 1.1 mg/dL 0.3 - 1 .2 mg/dL [facility] Calcium [Mass/Vol] 9.6 mg/dL 8.5 - 10. 5 mg/dL [facility] Chloride [Moles/Vol] 100 mmol/L 98 - 10 9 mmol/L [facility] CO2 [Moles/Vol] 27 mmol/L 22 - 32 mmol/L [facility] Creatinine [Mass/Vol] 0.96 mg/dL 0.40 - 1.00 mg/dL [facility] Comment on above: METHOD TRACEABLE TO [facility] STANDARD eGFR (CKD-EPI)non-race dependent 65 - PINF [facility] Comment on above: Reported eGFR is based on the CKD-EPI 2020 equation that does not use a race coefficient. Glucose [Mass/Vol] 289 mg/dL High 65 - 99 mg/dL [facility] Potassium [Moles/Vol] 3.5 mmol/L 3.5 - 5.0 mmol/L [facility] Protein [Mass/Vol] 6.8 g/dL 6.0 - 8.0 g/dL [facility] Sodium [Moles/Vol] 137 mmol/L 134 - 146 mmol/L [facility] Urea nitrogen [Mass/Vol] 8 mg/dL 5 - 27 mg/dL [facility] HGB A1C (GLYCO-HGB)on 2023 Glucose [Mass/Vol] 315 mg/dL Normal [facility] Comment on above: Performed By: #### C , 63000-8 #### [facility] ([id number]) [address] [place] [address] HbA1c (Bld) [Mass fraction] 12.6 % High 4.4-5.6 [facility] Comment on above: Result Comment: NOTE ADA Guidelines Result HgbA1c Normal : less than 5.7 % Prediabetes : 5.7 % to 6.4 % Diabetes : > 6.4 % Use with caution in patients with abnormal hemoglobin variants as the half-life of red blood cells and in vivo glycation rates are affected. Performed By: #### C , 16035-0 #### [facility] ([id number]) [address], [address] [place] [address] Hemoglobin A1con 05-08-2024 Average glucose Estimated from glycated hemoglobin (Bld) [Mass/Vol] 315 mg/dL [facility] HbA1c (Bld) [Mass fraction] 12.6 % High 4.4 - 5.6 % [facility] Comment on above: NOTE ADA Guidelines Result HgbA1c Normal : less than 5.7 % Prediabetes : 5.7 % to 6.4 % Diabetes : > 6.4 % Use with caution in patients with abnormal hemoglobin variants as the half-life of red blood cells and in vivo glycation rates are affected. Interpretation and review of laboratory results Abnormal [facility] Lipid 1996 panelon Cholesterol [Mass/Vol] 169 mg/dL 150 - 200 mg/dL [facility] Cholesterol in HDL [Mass/Vol] 43 mg/dL 39 - PINF mg/dL [facility] Comment on above: HDL <40 mg/dL - High Risk HDL > or = 40mg/dL- Desirable HDL >60 mg/dL - Negative Risk Cholesterol in LDL [Mass/Vol] 77 mg/dL NINF - 130 mg/dL [facility] Comment on above: LDL <100 mg/dL - Desirable LDL >160 mg/dL - High Risk Cholesterol in VLDL [Mass/Vol] 49 mg/dL High 0 - 30 mg/dL [facility] Cholesterol.total/Stanley sterol in HDL [Mass ratio] 3.9 {ratio} 1.0 - 5.0 [facility] Triglyceride [Mass/Vol] 245 mg/dL High 27 - 150 mg/dL [facility] Cholesterol [Mass/Vol] 169 mg/dL Normal 150-200 [facility] Comment on above: Performed By: #### Elva PIERSON, 01515-0 #### [facility] ([id number]) [address], [address] [place] [address] Cholesterol in HDL [Mass/Vol] 43 mg/dL Normal >39 [facility] Comment on above: Result Comment: HDL <40 mg/dL - High Risk HDL > or = 40mg/dL- Desirable HDL >60 mg/dL - Negative Risk Performed By: #### Elva PIERSON, 59666-9 #### [facility] ([id number]) [address], [address] [place] [address] Cholesterol in LDL [Mass/Vol] 77 mg/dL Normal <130 [facility] Comment on above: Result Comment: LDL <100 mg/dL - Desirable LDL >160 mg/dL - High Risk Performed By: #### Elva PIERSON, 50414-2 #### [facility] ([id number]) [address], [address] [place] [address] Cholesterol in VLDL [Mass/Vol] 49 mg/dL High 0-30 [facility] Comment on above: Performed By: #### C DANGELO, 45849-9 #### [facility] ([id number]) [address], [address] [place] [address] CHOLESTEROL:HDL 3.9 Normal 1.0-5.0 [facility] Comment on above: Performed By: #### Elva PIERSON, 92000-3 #### [facility] ([id number]) [address], [address] [place] [address] Triglyceride [Mass/Vol] 245 mg/dL High 27-150 [facility] Comment on above: Performed By: #### Elva PIERSON, 58144-0 #### [facility] ([id number]) [address], [address] [place] [address] No Panel Informationon 05-08 Interpretation and review of laboratory results Abnormal [facility] CNPNon 04-24-2024 CNPN Normal [facility] CBC W Auto Differential pane l (Bld)on 04-10-2024 Basophils (Bld) [#/Vol] 0.04 10*3/uL Normal <0.11 [facility] Comment on above: Order Comment: Speci men Type: BLOOD SPECIMENOrdering Facility: [facility] Address: [address] [place] [address] Performed By: #### 5 7021-8 ####[facility] LABCLIA [id number] [place] [address] Basophils/100 WBC (Bld) 1.0 % Normal C [facility] Comment on above: Order Comment: Speci men Type: BLOOD SPECIMENOrdering Facility: [facility] Address: [address] [place], [place] [address] Performed By: #### 5 7021-8 ####[facility] LABCLIA [id number] [place] [address] Differential cell count method Nom (Bld) Auto Normal [facility] Comment on above: Order Comment: Speci men Type: BLOOD SPECIMENOrdering Facility: [facility] Address: [address] [place] [address] Performed By: #### 5 7021-8 ####[facility] LABCLIA [id number] [place] [address] Eosinophils (Bld) [#/Vol] 0.19 10*3/uL Normal <0.46 [facility] Comment on above: Order Comment: Speci men Type: BLOOD SPECIMENOrdering Facility: [facility] Address: [address] [place] [address] Performed By: #### 5 7021-8 ####[facility] LABCLIA [id number] [place] [address] Eosinophils/100 WBC (Bld) 4.5 % Normal [facility] Comment on above: Order Comment: Speci men Type: BLOOD SPECIMENOrdering Facility: [facility] Address: [address] [place] [address] Performed By: #### 5 7021-8 ####[facility] LABCLIA [id number] [place] [address] Erythrocyte distribution width (RBC) [Ratio] 13.5 % Normal 11.5-15.0 [facility] Comment on above: Order Comment: Speci men Type: BLOOD SPECIMENOrdering Facility: [facility] Address: [address] [place] [address] Performed By: #### 5 7021-8 ####[facility] LABCLIA [id number] [place] [address] Hematocrit (Bld) [Volume fraction] 37.5 % Normal 36.0-46.0 [facility] Comment on above: Order Comment: Speci men Type: BLOOD SPECIMENOrdering Facility: [facility] Address: [address] [place] [address] Performed By: #### 5 7021-8 ####[facility] LABCLIA [id number] [place] [address] Hemoglobin (Bld) [Mass/Vol] 13.3 g/dL Normal 11.5-15.5 [facility] Comment on above: Order Comment: Speci men Type: BLOOD SPECIMENOrdering Facility: [facility] Address: [address] [place] [address] Performed By: #### 5 7021-8 ####[facility] LABCLIA [id number] [place] [address] Immature granulocytes (Bld) [#/Vol] 0.05 10*3/uL Normal <0.10 [facility] Comment on above: Order Comment: Speci men Type: BLOOD SPECIMENOrdering Facility: [facility] Address: [address] [place] [address] Performed By: #### 5 7021-8 ####[facility] LABCLIA [id number] [place] [address] Immature granulocytes/100 WBC (Bld) 1.2 % Normal [facility] Comment on above: Order Comment: Speci men Type: BLOOD SPECIMENOrdering Facility: [facility] Address: [address] [place] [address] Performed By: #### 5 7021-8 ####[facility] LABCLIA [id number] [place] [address] Lymphocytes (Bld) [#/Vol] 0.29 10*3/uL Low 1.00-4.00 [facility] Comment on above: Order Comment: Speci men Type: BLOOD SPECIMENOrdering Facility: [facility] Address: [address] [place] [address] Performed By: #### 5 7021-8 ####[facility] LABCLIA [id number] [place] [address] Lymphocytes/100 WBC (Bld) 6.9 % Normal [facility] Comment on above: Order Comment: Speci men Type: BLOOD SPECIMENOrdering Facility: [facility] Address: [address] [place] [address] Performed By: #### 5 7021-8 ####[facility] LABCLIA [id number] [place] [address] MCH (RBC) [Entitic mass] 29.0 pg Normal 26.0-34.0 [facility] Comment on above: Order Comment: Speci men Type: BLOOD SPECIMENOrdering Facility: [facility] Address: [address] [place] [address] Performed By: #### 5 7021-8 ####[facility] LABCLIA [id number] [place] [address] MCHC (RBC) [Mass/Vol] 35.5 g/dL Normal 30.5-36.0 [facility] Comment on above: Order Comment: Speci men Type: BLOOD SPECIMENOrdering Facility: [facility] Address: [address] [place] [address] Performed By: #### 5 7021-8 ####[facility] LABIA [id number] [place] [address] MCV (RBC) [Entitic vol] 81.9 fL Normal 80.0-100.0 C [facility] Comment on above: Order Comment: Speci men Type: BLOOD SPECIMENOrdering Facility: [facility] Address: [address] [place] [address] Performed By: #### 5 7021-8 ####[facility] LABCLIA [id number] [place] [address] Monocytes (Bld) [#/Vol] 0.38 10*3/uL Normal <0.87 [facility] Comment on above: Order Comment: Speci men Type: BLOOD SPECIMENOrdering Facility: [facility] Address: [address] [place] [address] Performed By: #### 5 7021-8 ####[facility] LABCLIA [id number] [place] [address] Monocytes/100 WBC (Bld) 9.0 % Normal C [facility] Comment on above: Order Comment: Speci men Type: BLOOD SPECIMENOrdering Facility: [facility] Address: [address] [place] [address] Performed By: #### 5 7021-8 ####[facility] LABCLIA [id number] [place] [address] Neutrophils (Bld) [#/Vol] 3.26 10*3/uL Normal 1.45-7.50 [facility] Comment on above: Order Comment: Speci men Type: BLOOD SPECIMENOrdering Facility: [facility] Address: [address] [place] [address] Performed By: #### 5 7021-8 ####[facility] LABCLIA [id number] [place] [address] Neutrophils/100 WBC (Bld) 77.4 % Normal [facility] Comment on above: Order Comment: Speci men Type: BLOOD SPECIMENOrdering Facility: [facility] Address: [address] [place] [address] Performed By: #### 5 7021-8 ####[facility] LABCLIA [id number] [place] [address] Nucleated RBC (Bld) [#/Vol] 10*3/uL Normal <0.01 [facility] Comment on above: Order Comment: Speci men Type: BLOOD SPECIMENOrdering Facility: [facility] Address: [address] [place] [address] Performed By: #### 5 7021-8 ####[facility] LABCLIA [id number] [place] [address] Nucleated RBC/100 WBC (Bld) [Ratio] 0.0 /100 WBC Normal [facility] Comment on above: Order Comment: Speci men Type: BLOOD SPECIMENOrdering Facility: [facility] Address: [address] [place] [address] Performed By: #### 5 7021-8 ####[facility] LABCLIA [id number] [place] [address] Platelet mean volume (Bld) [Entitic vol] 8.6 fL Low 9.0-12.7 [facility] Comment on above: Order Comment: Speci men Type: BLOOD SPECIMENOrdering Facility: [facility] Address: [address] [place] [address] Performed By: #### 5 7021-8 ####[facility] LABCLIA [id number] [place] [address] Platelets (Bld) [#/Vol] 297 10*3/uL Normal 150-400 [facility] Comment on above: Order Comment: Speci men Type: BLOOD SPECIMENOrdering Facility: [facility] Address: [address] [place] [address] Performed By: #### 5 7021-8 ####[facility] LABIA [id number] [place] [address] RBC (Bld) [#/Vol] 4.58 10*6/uL Normal 3.90-5.20 [facility] Comment on above: Order Comment: Speci men Type: BLOOD SPECIMENOrdering Facility: [facility] Address: [address] [place] [address] Performed By: #### 5 7021-8 ####[facility] LABIA [id number] [place] [address] WBC (Bld) [#/Vol] 4.21 10*3/uL Normal 3.70-11.00 [facility] Comment on above: Order Comment: Speci men Type: BLOOD SPECIMENOrdering Facility: [facility] Address: [address] [place] [address] Performed By: #### 5 7021-8 ####[facility] LABCLIA [id number] [place] [address] [facility] Carcinoembryonic Ag [Mass/Vol] 4.4 ng/mL High <=2.9 [facility] Comment on above: Order Comment: Speci men Type: BLOOD SPECIMENOrdering Facility: [facility] Address: [address] [place] [address] Result Comment: Carc inoembryonic antigen test is used as an aid in monitoring response to treatment or recurrence in patients with established colorectal, breast, lung, prostatic, pancreatic, and ovarian carcinomas. Clinical correlation is required.The Carcinoembryonic antigen test was performed using the [employer] DXI paramagnetic particle chemiluminescent immunoassay method. Results obtained with different assay methods or kits cannot be used interchangeably. Performed By: #### 2 039-6 ####[facility] LABCLIA [id number] [place] [address] [place] CNOVSPon 04-10-2024 CNOVSP Normal [facility] Comprehensive metabolic 2000 panelon 04-10-2024 Albumin [Mass/Vol] 4.0 g/dL Normal 3.9-4.9 [facility] Comment on above: Order Comment: Speci men Type: BLOOD SPECIMENOrdering Facility: [facility] Address: [address] [place] [address] Performed By: #### 2 4323-8 ####[facility] LABCLIA [id number] [place] [address] ALP [Catalytic activity/Vol] 137 U/L High 34-123 [facility] Comment on above: Order Comment: Speci men Type: BLOOD SPECIMENOrdering Facility: [facility] Address: [address] [place] [address] Performed By: #### 2 4323-8 ####[facility] LABCLIA [id number] [place] [address] ALT [Catalytic activity/Vol] 12 U/L Normal 7-38 [facility] Comment on above: Order Comment: Speci men Type: BLOOD SPECIMENOrdering Facility: [facility] Address: [address] [place] [address] Performed By: #### 2 4323-8 ####[facility] LABCLIA [id number] [place] [address] Anion gap [Moles/Vol] 12 mmol/L Normal 8-15 [facility] Comment on above: Order Comment: Speci men Type: BLOOD SPECIMENOrdering Facility: [facility] Address: [address] [place] [address] Performed By: #### 2 4323-8 ####[facility] LABCLIA [id number] [place] [address] AST [Catalytic activity/Vol] 12 U/L Low 13-35 [facility] Comment on above: Order Comment: Speci men Type: BLOOD SPECIMENOrdering Facility: [facility] Address: [address] [place] [address] Performed By: #### 2 4323-8 ####[facility] LABCLIA [id number] [place] [address] Bilirubin [Mass/Vol] 0.6 mg/dL Normal 0.2-1.3 [facility] Comment on above: Order Comment: Speci men Type: BLOOD SPECIMENOrdering Facility: [facility] Address: [address] [place] [address] Performed By: #### 2 4323-8 ####[facility] LABCLIA [id number] [place] [address] Calcium [Mass/Vol] 9.8 mg/dL Normal 8.5-10.2 [facility] Comment on above: Order Comment: Speci men Type: BLOOD SPECIMENOrdering Facility: [facility] Address: [address] [place] [address] Performed By: #### 2 4323-8 ####[facility] LABCLIA [id number] [place] [address] Chloride [Moles/Vol] 94 mmol/L Low 98-107 [facility] Comment on above: Order Comment: Speci men Type: BLOOD SPECIMENOrdering Facility: [facility] Address: [address] [place] [address] Performed By: #### 2 4323-8 ####[facility] LABCLIA [id number] [place] [address] CO2 [Moles/Vol] 29 mmol/L Normal 22-30 [facility] Comment on above: Order Comment: Speci men Type: BLOOD SPECIMENOrdering Facility: [facility] Address: [address] [place] [address] Performed By: #### 2 4323-8 ####[facility] LABCLIA [id number] [place] [address] Creatinine [Mass/Vol] 0.84 mg/dL Normal 0.58-0.96 [facility] Comment on above: Order Comment: Speci men Type: BLOOD SPECIMENOrdering Facility: [facility] Address: [address] [place] [address] Performed By: #### 2 4323-8 ####[facility] LABCLIA [id number] [place] [address] Creatinine and Glomerular filtration rate.predicted panel (S/P/Bld) 77 mL/min/1.73m??? Normal >=60 [facility] Comment on above: Order Comment: Speci men Type: BLOOD SPECIMENOrdering Facility: [facility] Address: [address] [place] [address] Result Comment: Lisbeth mated Glomerular Filtration Rate (eGFR) is calculated using the 2020 CKD-EPI creatinine equation. This equation utilizes serum creatinine, sex, and age as parameters. The creatinine assay has traceable calibration to isotope dilution-mass spectrometry. Refer to KDIGO guidelines for clinical interpretation. In patients with unstable renal function, e.g. those with acute kidney injury, the eGFR may not accurately reflect actual GFR. Performed By: #### 2 4323-8 ####[facility] LABCLIA [id number] [place] [address] Glucose [Mass/Vol] 413 mg/dL High 74-99 [facility] Comment on above: Order Comment: Speci men Type: BLOOD SPECIMENOrdering Facility: [facility] Address: [address] [place] [address] Result Comment: The [place] Diabetes Association (ADA) provides guidance for cutoff values for fasting glucose and random glucose. The ADA defines fasting as no caloric intake for at least 8 hours. Fasting plasma glucose results between 100 to 125 mg/dL indicate increased risk for diabetes (prediabetes).Fasting plasma glucose results greater than or equal to 126 mg/dL meet the criteria for diagnosis of diabetes. In the absence of unequivocal hyperglycemia, results should be confirmed by repeat testing. In a patient with classic symptoms of hyperglycemia or hyperglycemic crisis, random plasma glucose results greater than or equal to 200 mg/dL meet the criteria for diagnosis of diabetes.Reference: Standards of Medical Care in Diabetes 2016, [place] [employer]. Diabetes Care. 2016.39(Suppl 1). Performed By: #### 2 4323-8 ####[facility] LABCLIA [id number] [place] [address] Potassium [Moles/Vol] 3.3 mmol/L Low 3.7-5.1 [facility] Comment on above: Order Comment: Speci men Type: BLOOD SPECIMENOrdering Facility: [facility] Address: [address] [place] [address] Performed By: #### 2 4323-8 ####[facility] LABCLIA [id number] [place] [address] Protein [Mass/Vol] 7.1 g/dL Normal 6.3-8.0 [facility] Comment on above: Order Comment: Speci men Type: BLOOD SPECIMENOrdering Facility: [facility] Address: [address] [place] [address] Performed By: #### 2 4323-8 ####[facility] LABCLIA [id number] [place] [address] Sodium [Moles/Vol] 135 mmol/L Low 136-144 [facility] Comment on above: Order Comment: Speci men Type: BLOOD SPECIMENOrdering Facility: [facility] Address: [address] [place] [address] Performed By: #### 2 4323-8 ####[facility] LABCLIA [id number] [place] [address] Urea nitrogen [Mass/Vol] 6 mg/dL Low 7-21 [facility] Comment on above: Order Comment: Speci men Type: BLOOD SPECIMENOrdering Facility: [facility] Address: [address] [place] [address] Performed By: #### 2 4323-8 ####[facility] LABCLIA [id number] [place] [address] CNPNon 03-24-2024 CNPN Normal [facility] CBC W Auto Differential pane l (Bld)on 03-20-2024 Basophils (Bld) [#/Vol] 0.04 10*3/uL Normal <0.11 [facility] Comment on above: Order Comment: Speci men Type: BLOOD SPECIMENOrdering Facility: [facility] Address: [address] [place] [address] Performed By: #### 5 7021-8 ####[facility] LABIA [id number] [place] [address] Basophils/100 WBC (Bld) 0.9 % Normal C [facility] Comment on above: Order Comment: Speci men Type: BLOOD SPECIMENOrdering Facility: [facility] Address: [address] [place] [address] Performed By: #### 5 7021-8 ####[facility] LABCLIA [id number] [place] [address] Differential cell count method Nom (Bld) Auto Normal [facility] Comment on above: Order Comment: Speci men Type: BLOOD SPECIMENOrdering Facility: [facility] Address: [address] [place] [address] Performed By: #### 5 7021-8 ####[facility] LABCLIA [id number] [place] [address] Eosinophils (Bld) [#/Vol] 0.27 10*3/uL Normal <0.46 [facility] Comment on above: Order Comment: Speci men Type: BLOOD SPECIMENOrdering Facility: [facility] Address: [address] [place] [address] Performed By: #### 5 7021-8 ####[facility] LABCLIA [id number] [place] [address] Eosinophils/100 WBC (Bld) 6.0 % Normal [facility] Comment on above: Order Comment: Speci men Type: BLOOD SPECIMENOrdering Facility: [facility] Address: [address] [place] [address] Performed By: #### 5 7021-8 ####[facility] LABCLIA [id number] [place] [address] Erythrocyte distribution width (RBC) [Ratio] 13.1 % Normal 11.5-15.0 [facility] Comment on above: Order Comment: Speci men Type: BLOOD SPECIMENOrdering Facility: [facility] Address: [address] [place] [address] Performed By: #### 5 7021-8 ####[facility] LABCLIA [id number] [place] [address] Hematocrit (Bld) [Volume fraction] 36.5 % Normal 36.0-46.0 [facility] Comment on above: Order Comment: Speci men Type: BLOOD SPECIMENOrdering Facility: [facility] Address: [address] [place] [address] Performed By: #### 5 7021-8 ####[facility] LABCLIA [id number] [place] [address] Hemoglobin (Bld) [Mass/Vol] 12.8 g/dL Normal 11.5-15.5 [facility] Comment on above: Order Comment: Speci men Type: BLOOD SPECIMENOrdering Facility: [facility] Address: [address] [place] [address] Performed By: #### 5 7021-8 ####[facility] LABCLIA [id number] [place] [address] Immature granulocytes (Bld) [#/Vol] 0.04 10*3/uL Normal <0.10 [facility] Comment on above: Order Comment: Speci men Type: BLOOD SPECIMENOrdering Facility: [facility] Address: [address] [place] [address] Performed By: #### 5 7021-8 ####[facility] LABCLIA [id number] [place] [address] Immature granulocytes/100 WBC (Bld) 0.9 % Normal [facility] Comment on above: Order Comment: Speci men Type: BLOOD SPECIMENOrdering Facility: [facility] Address: [address] [place] [address] Performed By: #### 5 7021-8 ####[facility] LABCLIA [id number] [place] [address] Lymphocytes (Bld) [#/Vol] 0.33 10*3/uL Low 1.00-4.00 [facility] Comment on above: Order Comment: Speci men Type: BLOOD SPECIMENOrdering Facility: [facility] Address: [address] [place] [address] Performed By: #### 5 7021-8 ####[facility] LABCLIA [id number] [place] [address] Lymphocytes/100 WBC (Bld) 7.3 % Normal [facility] Comment on above: Order Comment: Speci men Type: BLOOD SPECIMENOrdering Facility: [facility] Address: [address] [place] [address] Performed By: #### 5 7021-8 ####[facility] LABCLIA [id number] [place] [address] MCH (RBC) [Entitic mass] 29.0 pg Normal 26.0-34.0 [facility] Comment on above: Order Comment: Speci men Type: BLOOD SPECIMENOrdering Facility: [facility] Address: [address] [place] [address] Performed By: #### 5 7021-8 ####[facility] LABCLIA [id number] [place] [address] MCHC (RBC) [Mass/Vol] 35.1 g/dL Normal 30.5-36.0 [facility] Comment on above: Order Comment: Speci men Type: BLOOD SPECIMENOrdering Facility: [facility] Address: [address] [place] [address] Performed By: #### 5 7021-8 ####[facility] LABCLIA [id number] [place] [address] MCV (RBC) [Entitic vol] 82.8 fL Normal 80.0-100.0 C [facility] Comment on above: Order Comment: Speci men Type: BLOOD SPECIMENOrdering Facility: [facility] Address: [address] [place] [address] Performed By: #### 5 7021-8 ####[facility] LABCLIA [id number] [place] [address] Monocytes (Bld) [#/Vol] 0.36 10*3/uL Normal <0.87 [facility] Comment on above: Order Comment: Speci men Type: BLOOD SPECIMENOrdering Facility: [facility] Address: [address] [place] [address] Performed By: #### 5 7021-8 ####[facility] LABCLIA [id number] [place] [address] Monocytes/100 WBC (Bld) 8.0 % Normal C [facility] Comment on above: Order Comment: Speci men Type: BLOOD SPECIMENOrdering Facility: [facility] Address: [address] [place] [address] Performed By: #### 5 7021-8 ####[facility] LABCLIA [id number] [place] [address] Neutrophils (Bld) [#/Vol] 3.46 10*3/uL Normal 1.45-7.50 [facility] Comment on above: Order Comment: Speci men Type: BLOOD SPECIMENOrdering Facility: [facility] Address: [address] [place] [address] Performed By: #### 5 7021-8 ####[facility] LABCLIA [id number] [place] [address] Neutrophils/100 WBC (Bld) 76.9 % Normal [facility] Comment on above: Order Comment: Speci men Type: BLOOD SPECIMENOrdering Facility: [facility] Address: [address] [place] [address] Performed By: #### 5 7021-8 ####[facility] LABIA [id number] [place] [address] Nucleated RBC (Bld) [#/Vol] 10*3/uL Normal <0.01 [facility] Comment on above: Order Comment: Speci men Type: BLOOD SPECIMENOrdering Facility: [facility] Address: [address] [place] [address] Performed By: #### 5 7021-8 ####[facility] LABCLIA [id number] [place] [address] Nucleated RBC/100 WBC (Bld) [Ratio] 0.0 /100 WBC Normal [facility] Comment on above: Order Comment: Speci men Type: BLOOD SPECIMENOrdering Facility: [facility] Address: [address] [place] [address] Performed By: #### 5 7021-8 ####[facility] LABIA [id number] [place] [address] Platelet mean volume (Bld) [Entitic vol] 9.1 fL Normal 9.0-12.7 [facility] Comment on above: Order Comment: Speci men Type: BLOOD SPECIMENOrdering Facility: [facility] Address: [address] [place] [address] Performed By: #### 5 7021-8 ####[facility] LABCLIA [id number] [place] [address] Platelets (Bld) [#/Vol] 310 10*3/uL Normal 150-400 [facility] Comment on above: Order Comment: Speci men Type: BLOOD SPECIMENOrdering Facility: [facility] Address: [address] [place] [address] Performed By: #### 5 7021-8 ####[facility] LABCLIA [id number] [place] [address] RBC (Bld) [#/Vol] 4.41 10*6/uL Normal 3.90-5.20 [facility] Comment on above: Order Comment: Speci men Type: BLOOD SPECIMENOrdering Facility: [facility] Address: [address] [place] [address] Performed By: #### 5 7021-8 ####[facility] LABCLIA [id number] [place] [address] WBC (Bld) [#/Vol] 4.50 10*3/uL Normal 3.70-11.00 [facility] Comment on above: Order Comment: Speci men Type: BLOOD SPECIMENOrdering Facility: [facility] Address: [address] [place] [address] Performed By: #### 5 7021-8 ####[facility] LABIA [id number] [place] [address] [facility] Carcinoembryonic Ag [Mass/Vol] 3.4 ng/mL High <=2.9 [facility] Comment on above: Order Comment: Speci men Type: BLOOD SPECIMENOrdering Facility: [facility] Address: [address] [place] [address] Result Comment: Carc inoembryonic antigen test is used as an aid in monitoring response to treatment or recurrence in patients with established colorectal, breast, lung, prostatic, pancreatic, and ovarian carcinomas. Clinical correlation is required.The Carcinoembryonic antigen test was performed using the [employer] DXI paramagnetic particle chemiluminescent immunoassay method. Results obtained with different assay methods or kits cannot be used interchangeably. Performed By: #### 2 039-6 ####[facility] LABCLIA [id number] [address] [place] CNOVSPon 03-20-2024 CNOVSP Normal [facility] Comprehensive metabolic 2000 panelon 03-20-2024 Albumin [Mass/Vol] 4.1 g/dL Normal 3.9-4.9 [facility] Comment on above: Order Comment: Speci men Type: BLOOD SPECIMENOrdering Facility: [facility] Address: [address] [place] [address] Performed By: #### 2 4323-8 ####[facility] LABCLIA [id number] [place] [address] ALP [Catalytic activity/Vol] 132 U/L High 34-123 [facility] Comment on above: Order Comment: Speci men Type: BLOOD SPECIMENOrdering Facility: [facility] Address: [address] [place] [address] Performed By: #### 2 4323-8 ####[facility] LABCLIA [id number] [place] [address] ALT [Catalytic activity/Vol] 11 U/L Normal 7-38 [facility] Comment on above: Order Comment: Speci men Type: BLOOD SPECIMENOrdering Facility: [facility] Address: [address] [place] [address] Performed By: #### 2 4323-8 ####[facility] LABIA [id number] [place] [address] Anion gap [Moles/Vol] 15 mmol/L Normal 8-15 [facility] Comment on above: Order Comment: Speci men Type: BLOOD SPECIMENOrdering Facility: [facility] Address: [address] [place] [address] Performed By: #### 2 4323-8 ####[facility] LABCLIA [id number] [place] [address] AST [Catalytic activity/Vol] 9 U/L Low 13-35 [facility] Comment on above: Order Comment: Speci men Type: BLOOD SPECIMENOrdering Facility: [facility] Address: [address] [place] [address] Performed By: #### 2 4323-8 ####[facility] LABCLIA [id number] [place] [address] Bilirubin [Mass/Vol] 0.7 mg/dL Normal 0.2-1.3 [facility] Comment on above: Order Comment: Speci men Type: BLOOD SPECIMENOrdering Facility: [facility] Address: [address] [place] [address] Performed By: #### 2 4323-8 ####[facility] LABCLIA [id number] [place] [address] Calcium [Mass/Vol] 10.0 mg/dL Normal 8.5-10.2 [facility] Comment on above: Order Comment: Speci men Type: BLOOD SPECIMENOrdering Facility: [facility] Address: [address] [place] [address] Performed By: #### 2 4323-8 ####[facility] LABCLIA [id number] [place] [address] Chloride [Moles/Vol] 96 mmol/L Low 98-107 [facility] Comment on above: Order Comment: Speci men Type: BLOOD SPECIMENOrdering Facility: [facility] Address: [address] [place] [address] Performed By: #### 2 4323-8 ####[facility] LABCLIA [id number] [place] [address] CO2 [Moles/Vol] 27 mmol/L Normal 22-30 [facility] Comment on above: Order Comment: Speci men Type: BLOOD SPECIMENOrdering Facility: [facility] Address: [address] [place] [address] Performed By: #### 2 4323-8 ####[facility] LABCLIA [id number] [place] [address] Creatinine [Mass/Vol] 1.02 mg/dL High 0.58-0.96 [facility] Comment on above: Order Comment: Speci men Type: BLOOD SPECIMENOrdering Facility: [facility] Address: [address] [place] [address] Performed By: #### 2 4323-8 ####[facility] LABCLIA [id number] [place] [address] Creatinine and Glomerular filtration rate.predicted panel (S/P/Bld) 61 mL/min/1.73m??? Normal >=60 [facility] Comment on above: Order Comment: Speci men Type: BLOOD SPECIMENOrdering Facility: [facility] Address: [address] [place] [address] Result Comment: Lisbeth mated Glomerular Filtration Rate (eGFR) is calculated using the 2020 CKD-EPI creatinine equation. This equation utilizes serum creatinine, sex, and age as parameters. The creatinine assay has traceable calibration to isotope dilution-mass spectrometry. Refer to KDIGO guidelines for clinical interpretation. In patients with unstable renal function, e.g. those with acute kidney injury, the eGFR may not accurately reflect actual GFR. Performed By: #### 2 4323-8 ####[facility] LABCLIA [id number] [place] [address] Glucose [Mass/Vol] 434 mg/dL High 74-99 [facility] Comment on above: Order Comment: Speci men Type: BLOOD SPECIMENOrdering Facility: [facility] Address: [address] [place], [place] [address] Result Comment: The [place] Diabetes [employer] (ADA) provides guidance for cutoff values for fasting glucose and random glucose. The ADA defines fasting as no caloric intake for at least 8 hours. Fasting plasma glucose results between 100 to 125 mg/dL indicate increased risk for diabetes (prediabetes).Fasting plasma glucose results greater than or equal to 126 mg/dL meet the criteria for diagnosis of diabetes. In the absence of unequivocal hyperglycemia, results should be confirmed by repeat testing. In a patient with classic symptoms of hyperglycemia or hyperglycemic crisis, random plasma glucose results greater than or equal to 200 mg/dL meet the criteria for diagnosis of diabetes.Reference: Standards of Medical Care in Diabetes 2016, [place] [employer]. Diabetes Care. 2016.39(Suppl 1). Performed By: #### 2 4323-8 ####[facility] LABCLIA [id number] [place] [address] Potassium [Moles/Vol] 4.2 mmol/L Normal 3.7-5.1 [facility] Comment on above: Order Comment: Speci men Type: BLOOD SPECIMENOrdering Facility: [facility] Address: [address] [place] [address] Performed By: #### 2 4323-8 ####[facility] LABCLIA [id number] [place] [address] Protein [Mass/Vol] 7.2 g/dL Normal 6.3-8.0 [facility] Comment on above: Order Comment: Speci men Type: BLOOD SPECIMENOrdering Facility: [facility] Address: [address] [place] [address] Performed By: #### 2 4323-8 ####[facility] LABCLIA [id number] [place] [address] Sodium [Moles/Vol] 138 mmol/L Normal 136-144 [facility] Comment on above: Order Comment: Speci men Type: BLOOD SPECIMENOrdering Facility: [facility] Address: [address] [place] [address] Performed By: #### 2 4323-8 ####[facility] LABCLIA [id number] [place] [address] Urea nitrogen [Mass/Vol] 16 mg/dL Normal 7-21 [facility] Comment on above: Order Comment: Speci men Type: BLOOD SPECIMENOrdering Facility: [facility] Address: [address] [place] [address] Performed By: #### 2 4323-8 ####[facility] LABCLIA [id number] [place] [address] CNPNon 03-07-2024 CNPN Normal [facility] CBC W Auto Differential pane l (Bld)on 03-06-2024 Basophils (Bld) [#/Vol] 0.04 10*3/uL Normal <0.11 [facility] Comment on above: Order Comment: Speci men Type: BLOOD SPECIMENOrdering Facility: [facility] Address: [address] [place] [address] Performed By: #### 5 7021-8 ####[facility] LABCLIA [id number] [place] [address] Basophils/100 WBC (Bld) 0.7 % Normal C [facility] Comment on above: Order Comment: Speci men Type: BLOOD SPECIMENOrdering Facility: [facility] Address: [address] [place] [address] Performed By: #### 5 7021-8 ####[facility] LABCLIA [id number] [place] [address] Differential cell count method Nom (Bld) Auto Normal [facility] Comment on above: Order Comment: Speci men Type: BLOOD SPECIMENOrdering Facility: [facility] Address: [address] [place] [address] Performed By: #### 5 7021-8 ####[facility] LABCLIA [id number] [place] [address] Eosinophils (Bld) [#/Vol] 0.44 10*3/uL Normal <0.46 [facility] Comment on above: Order Comment: Speci men Type: BLOOD SPECIMENOrdering Facility: [facility] Address: [address] [place] [address] Performed By: #### 5 7021-8 ####[facility] LABCLIA [id number] [place] [address] Eosinophils/100 WBC (Bld) 7.2 % Normal [facility] Comment on above: Order Comment: Speci men Type: BLOOD SPECIMENOrdering Facility: [facility] Address: [address] [place] [address] Performed By: #### 5 7021-8 ####[facility] LABCLIA [id number] [place] [address] Erythrocyte distribution width (RBC) [Ratio] 13.1 % Normal 11.5-15.0 [facility] Comment on above: Order Comment: Speci men Type: BLOOD SPECIMENOrdering Facility: [facility] Address: [address] [place] [address] Performed By: #### 5 7021-8 ####[facility] LABCLIA [id number] [place] [address] Hematocrit (Bld) [Volume fraction] 38.2 % Normal 36.0-46.0 [facility] Comment on above: Order Comment: Speci men Type: BLOOD SPECIMENOrdering Facility: [facility] Address: [address] [place] [address] Performed By: #### 5 7021-8 ####[facility] LABCLIA [id number] [place] [address] Hemoglobin (Bld) [Mass/Vol] 13.5 g/dL Normal 11.5-15.5 [facility] Comment on above: Order Comment: Speci men Type: BLOOD SPECIMENOrdering Facility: [facility] Address: [address] [place] [address] Performed By: #### 5 7021-8 ####[facility] LABCLIA [id number] [place] [address] Immature granulocytes (Bld) [#/Vol] 0.03 10*3/uL Normal <0.10 [facility] Comment on above: Order Comment: Speci men Type: BLOOD SPECIMENOrdering Facility: [facility] Address: [address] [place] [address] Performed By: #### 5 7021-8 ####[facility] LABCLIA [id number] [place] [address] Immature granulocytes/100 WBC (Bld) 0.5 % Normal [facility] Comment on above: Order Comment: Speci men Type: BLOOD SPECIMENOrdering Facility: [facility] Address: [address] [place] [address] Performed By: #### 5 7021-8 ####[facility] LABCLIA [id number] [place] [address] Lymphocytes (Bld) [#/Vol] 0.47 10*3/uL Low 1.00-4.00 [facility] Comment on above: Order Comment: Speci men Type: BLOOD SPECIMENOrdering Facility: [facility] Address: [address] [place] [address] Performed By: #### 5 7021-8 ####[facility] LABCLIA [id number] [place] [address] Lymphocytes/100 WBC (Bld) 7.7 % Normal [facility] Comment on above: Order Comment: Speci men Type: BLOOD SPECIMENOrdering Facility: [facility] Address: [address] [place] [address] Performed By: #### 5 7021-8 ####[facility] LABCLIA [id number] [place] [address] MCH (RBC) [Entitic mass] 28.6 pg Normal 26.0-34.0 [facility] Comment on above: Order Comment: Speci men Type: BLOOD SPECIMENOrdering Facility: [facility] Address: [address] [place] [address] Performed By: #### 5 7021-8 ####[facility] LABCLIA [id number] [place] [address] MCHC (RBC) [Mass/Vol] 35.3 g/dL Normal 30.5-36.0 [facility] Comment on above: Order Comment: Speci men Type: BLOOD SPECIMENOrdering Facility: [facility] Address: [address] [place] [address] Performed By: #### 5 7021-8 ####[facility] LABCLIA [id number] [place] [address] MCV (RBC) [Entitic vol] 80.9 fL Normal 80.0-100.0 C [facility] Comment on above: Order Comment: Speci men Type: BLOOD SPECIMENOrdering Facility: [facility] Address: [address] [place] [address] Performed By: #### 5 7021-8 ####[facility] LABIA [id number] [place] [address] Monocytes (Bld) [#/Vol] 0.38 10*3/uL Normal <0.87 [facility] Comment on above: Order Comment: Speci men Type: BLOOD SPECIMENOrdering Facility: [facility] Address: [address] [place] [address] Performed By: #### 5 7021-8 ####[facility] LABCLIA [id number] [place] [address] Monocytes/100 WBC (Bld) 6.3 % Normal [facility] Comment on above: Order Comment: Speci men Type: BLOOD SPECIMENOrdering Facility: [facility] Address: [address] [place] [address] Performed By: #### 5 7021-8 ####[facility] LABCLIA [id number] [place] [address] Neutrophils (Bld) [#/Vol] 4.71 10*3/uL Normal 1.45-7.50 [facility] Comment on above: Order Comment: Speci men Type: BLOOD SPECIMENOrdering Facility: [facility] Address: [address] [place] [address] Performed By: #### 5 7021-8 ####[facility] LABCLIA [id number] [place] [address] Neutrophils/100 WBC (Bld) 77.6 % Normal [facility] Comment on above: Order Comment: Speci men Type: BLOOD SPECIMENOrdering Facility: [facility] Address: [address] [place] [address] Performed By: #### 5 7021-8 ####[facility] LABCLIA [id number] [place] [address] Nucleated RBC (Bld) [#/Vol] 10*3/uL Normal <0.01 [facility] Comment on above: Order Comment: Speci men Type: BLOOD SPECIMENOrdering Facility: [facility] Address: [address] [place] [address] Performed By: #### 5 7021-8 ####[facility] LABCLIA [id number] [place] [address] Nucleated RBC/100 WBC (Bld) [Ratio] 0.0 /100 WBC Normal [facility] Comment on above: Order Comment: Speci men Type: BLOOD SPECIMENOrdering Facility: [facility] Address: [address] [place] [address] Performed By: #### 5 7021-8 ####[facility] LABCLIA [id number] [place] [address] Platelet mean volume (Bld) [Entitic vol] 8.7 fL Low 9.0-12.7 [facility] Comment on above: Order Comment: Speci men Type: BLOOD SPECIMENOrdering Facility: [facility] Address: [address] [place] [address] Performed By: #### 5 7021-8 ####[facility] LABCLIA [id number] [place] [address] Platelets (Bld) [#/Vol] 290 10*3/uL Normal 150-400 [facility] Comment on above: Order Comment: Speci men Type: BLOOD SPECIMENOrdering Facility: [facility] Address: [address] [place] [address] Performed By: #### 5 7021-8 ####[facility] LABCLIA [id number] [place] [address] RBC (Bld) [#/Vol] 4.72 10*6/uL Normal 3.90-5.20 [facility] Comment on above: Order Comment: Speci men Type: BLOOD SPECIMENOrdering Facility: [facility] Address: [address] [place] [address] Performed By: #### 5 7021-8 ####[facility] LABIA [id number] [place] [address] WBC (Bld) [#/Vol] 6.07 10*3/uL Normal 3.70-11.00 [facility] Comment on above: Order Comment: Speci men Type: BLOOD SPECIMENOrdering Facility: [facility] Address: [address] [place] [address] Performed By: #### 5 7021-8 ####[facility] LABIA [id number] [place] [address] [facility] Carcinoembryonic Ag [Mass/Vol] 2.6 ng/mL Normal <=2.9 [facility] Comment on above: Order Comment: Speci men Type: BLOOD SPECIMENOrdering Facility: [facility] Address: [address] [place] [address] Result Comment: Carc inoembryonic antigen test is used as an aid in monitoring response to treatment or recurrence in patients with established colorectal, breast, lung, prostatic, pancreatic, and ovarian carcinomas. Clinical correlation is required.The Carcinoembryonic antigen test was performed using the [employer] Un[employer]el DXI paramagnetic particle chemiluminescent immunoassay method. Results obtained with different assay methods or kits cannot be used interchangeably. Performed By: #### 2 039-6 ####[facility] LABCLIA [id number] [facility] [id number] VIL[place] [id number] [place] Comprehensive metabolic 2000 panelon 03-06-2024 Albumin [Mass/Vol] 4.1 g/dL Normal 3.9-4.9 [facility] Comment on above: Order Comment: Speci men Type: BLOOD SPECIMENOrdering Facility: [facility] Address: [address] [place] [address] Performed By: #### 2 4323-8 ####[facility] LABCLIA [id number] [place] [address] ALP [Catalytic activity/Vol] 131 U/L High 34-123 [facility] Comment on above: Order Comment: Speci men Type: BLOOD SPECIMENOrdering Facility: [facility] Address: [address] [place] [address] Performed By: #### 2 4323-8 ####[facility] LABCLIA [id number] [place] [address] ALT [Catalytic activity/Vol] 13 U/L Normal 7-38 [facility] Comment on above: Order Comment: Speci men Type: BLOOD SPECIMENOrdering Facility: [facility] Address: [address] [place] [address] Performed By: #### 2 4323-8 ####[facility] LABCLIA [id number] [place] [address] Anion gap [Moles/Vol] 13 mmol/L Normal 8-15 [facility] Comment on above: Order Comment: Speci men Type: BLOOD SPECIMENOrdering Facility: [facility] Address: [address] [place] [address] Performed By: #### 2 4323-8 ####[facility] LABCLIA [id number] [place] [address] AST [Catalytic activity/Vol] 12 U/L Low 13-35 [facility] Comment on above: Order Comment: Speci men Type: BLOOD SPECIMENOrdering Facility: [facility] Address: [address] [place] [address] Performed By: #### 2 4323-8 ####[facility] LABCLIA [id number] [place] [address] Bilirubin [Mass/Vol] 0.8 mg/dL Normal 0.2-1.3 [facility] Comment on above: Order Comment: Speci men Type: BLOOD SPECIMENOrdering Facility: [facility] Address: [address] [place] [address] Performed By: #### 2 4323-8 ####[facility] LABCLIA [id number] [place] [address] Calcium [Mass/Vol] 10.5 mg/dL High 8.5-10.2 [facility] Comment on above: Order Comment: Speci men Type: BLOOD SPECIMENOrdering Facility: [facility] Address: [address] [place] [address] Performed By: #### 2 4323-8 ####[facility] LABCLIA [id number] [place] [address] Chloride [Moles/Vol] 97 mmol/L Low 98-107 [facility] Comment on above: Order Comment: Speci men Type: BLOOD SPECIMENOrdering Facility: [facility] Address: [address] [place] [address] Performed By: #### 2 4323-8 ####[facility] LABCLIA [id number] [place] [address] CO2 [Moles/Vol] 24 mmol/L Normal 22-30 [facility] Comment on above: Order Comment: Speci men Type: BLOOD SPECIMENOrdering Facility: [facility] Address: [address] [place] [address] Performed By: #### 2 4323-8 ####[facility] LABCLIA [id number] [place] [address] Creatinine [Mass/Vol] 0.92 mg/dL Normal 0.58-0.96 [facility] Comment on above: Order Comment: Milady mason Type: BLOOD SPECIMENOrdering Facility: [facility] Address: [address] [place], [place] [address] Performed By: #### 2 4323-8 ####[facility] LABCLIA [id number] [place] [address] Creatinine and Glomerular filtration rate.predicted panel (S/P/Bld) 69 mL/min/1.73m??? Normal >=60 [facility] Comment on above: Order Comment: Milady mason Type: BLOOD SPECIMENOrdering Facility: [facility] Address: [address] [place] [address] Result Comment: Lisbeth mated Glomerular Filtration Rate (eGFR) is calculated using the 2020 CKD-EPI creatinine equation. This equation utilizes serum creatinine, sex, and age as parameters. The creatinine assay has traceable calibration to isotope dilution-mass spectrometry. Refer to KDIGO guidelines for clinical interpretation. In patients with unstable renal function, e.g. those with acute kidney injury, the eGFR may not accurately reflect actual GFR. Performed By: #### 2 4323-8 ####[facility] LABCLIA [id number] [place] [address] Glucose [Mass/Vol] 360 mg/dL High 74-99 [facility] Comment on above: Order Comment: Milady mason Type: BLOOD SPECIMENOrdering Facility: [facility] Address: [address] [place], [place] [address] Result Comment: The [place] Diabetes Association (ADA) provides guidance for cutoff values for fasting glucose and random glucose. The ADA defines fasting as no caloric intake for at least 8 hours. Fasting plasma glucose results between 100 to 125 mg/dL indicate increased risk for diabetes (prediabetes).Fasting plasma glucose results greater than or equal to 126 mg/dL meet the criteria for diagnosis of diabetes. In the absence of unequivocal hyperglycemia, results should be confirmed by repeat testing. In a patient with classic symptoms of hyperglycemia or hyperglycemic crisis, random plasma glucose results greater than or equal to 200 mg/dL meet the criteria for diagnosis of diabetes.Reference: Standards of Medical Care in Diabetes 2016, [place] Diabetes Association. Diabetes Care. 2016.39(Suppl 1). Performed By: #### 2 4323-8 ####[facility] LABCLIA [id number] [place] [address] Potassium [Moles/Vol] 3.7 mmol/L Normal 3.7-5.1 [facility] Comment on above: Order Comment: Speci men Type: BLOOD SPECIMENOrdering Facility: [facility] Address: [address] [place] [address] Performed By: #### 2 4323-8 ####[facility] LABCLIA [id number] [place] [address] Protein [Mass/Vol] 7.4 g/dL Normal 6.3-8.0 [facility] Comment on above: Order Comment: Speci men Type: BLOOD SPECIMENOrdering Facility: [facility] Address: [address] [place] [address] Performed By: #### 2 4323-8 ####[facility] LABCLIA [id number] [place] [address] Sodium [Moles/Vol] 134 mmol/L Low 136-144 [facility] Comment on above: Order Comment: Speci men Type: BLOOD SPECIMENOrdering Facility: [facility] Address: [address] [place] [address] Performed By: #### 2 4323-8 ####[facility] LABCLIA [id number] [place] [address] Urea nitrogen [Mass/Vol] 10 mg/dL Normal 7-21 [facility] Comment on above: Order Comment: Speci men Type: BLOOD SPECIMENOrdering Facility: [facility] Address: [address] [place] [address] Performed By: #### 2 4323-8 ####[facility] LABCLIA [id number] [place] [address] CNPNon 02-19-2024 CNPN Normal [facility] Automated basophil %Ordered By: Alexander Pitts on 02-13-2024 Basophils/100 WBC (Bld) 1.3 % Normal . [facility] Comment on above: Performed By: #### C BC, BMP #### [address] Automated basophil countOrde red By: Alexander Pitts on 02-13-2024 Basophils (Bld) [#/Vol] 0.1 10*3/uL Normal 0.0-0.2 [facility] Comment on above: Result Comment: PERF ORMED BY: [place] [address] PATHOLOGIST [employer] ANNA MARIE DELA CRUZ M.D. Performed By: #### C BC, BMP #### [address] Automated blood monocyte cou ntOrdered By: Alexander Pitts on 02-13-2024 Monocytes (Bld) [#/Vol] 0.6 10*3/uL Normal 0.0-0.8 [facility] Comment on above: Performed By: #### C BC, BMP #### [address] Automated eosinophil %Ordere d By: Alexander Pitts on 02-13-2024 Eosinophils/100 WBC (Bld) 4.3 % Normal . [facility] Comment on above: Performed By: #### C BC, BMP #### [address] Automated eosinophil countOr dered By: Alexander Pitts on 02-13-2024 Eosinophils (Bld) [#/Vol] 0.3 10*3/uL Normal 0.0-0.45 [facility] Comment on above: Performed By: #### C BC, BMP #### [address] Automated monocyte %Ordered By: Alexander Pitts on 02-13-2024 Monocytes/100 WBC (Bld) 10.7 % Normal . [facility] Comment on above: Performed By: #### C BC, BMP #### [facility] [address] Automated neutrophil %Ordere d By: Alexander Pitts on 02-13-2024 Neutrophils/100 WBC (Bld) 77.2 % Normal . [facility] Comment on above: Performed By: #### C BC, BMP #### [facility] [address] Basic Metabolic Panelon 01-20 Creatinine Clr Calc Pharmacy 72.00 Normal [facility] Comment on above: Result Comment: PERF ORMED BY: [place] [address] PATHOLOGIST [employer] ANNA MARIE DELA CRUZ M.D. Performed By: #### C BC, BMP #### [address] GFR/1.73 sq M.predicted MDRD (S/P/Bld) [Vol rate/Area] mL/min/{1.73_m2} Normal [facility] Comment on above: Performed By: #### C BC, BMP #### [place] [address] [place] Basophils Auto (Bld) [#/Vol] Ordered By: Alexander Pitts on 02-13-2024 Basophils (Bld) [#/Vol] Automated basoph il count 0.0-0.2 [facility] Basophils/100 WBC Auto (Bld) Ordered By: Alexander Pitts on 02-13-2024 Basophils/100 WBC (Bld) Automated basophil % . [facility] Calcium [Mass/volume] in Ser um or PlasmaOrdered By: Alexander Pitts on 02-13-2024 Calcium [Mass/Vol] 8.8 mg/dL Normal 8.6-10.3 [place] Comment on above: Performed By: #### C BC, BMP #### [address] Calcium [Mass/Vol] Calcium [Mass/volume ] in Serum or Plasma 8.6-10.3 [facility] Capillary blood glucose mary urement by glucometer (mass/volume)Ordered By: Darian Ba on 02-13-2024 Glucose [Mass/Vol] 234 mg/dL Normal [place] Comment on above: Random Glucose Refer ence Range is dependent on time and content of last meal. Glucose of more than 200 mg/dL in a nonstressed, ambulatory subject supports the diagnosis of Diabetes Mellitus. Result Comment: [place] om Glucose Reference Range is dependent on time and content of last meal. Glucose of more than 200 mg/dL in a nonstressed, ambulatory subject supports the diagnosis of Diabetes Mellitus. Performed By: #### G SHANA #### Point of Care testing , Carbon dioxide, total [Moles /volume] in Serum or PlasmaOrdered By: Alexander Pitts on 02-13-2024 CO2 [Moles/Vol] 24.6 mmol/L Normal 21.0-31.0 [facility] Comment on above: Performed By: #### C BC, BMP #### [address] CO2 [Moles/Vol] Carbon dioxide, tota l [Moles/volume] in Serum or Plasma 21.0-31.0 [facility] Chloride [Moles/volume] in S dmitri or PlasmaOrdered By: Alexadner Pitts on 02-13-2024 Chloride [Moles/Vol] 103 mmol/L Normal 98-107 [facility] Comment on above: Performed By: #### C BC, BMP #### [address] Chloride [Moles/Vol] Chloride [Moles/volume] in Serum or Plasma 98-107 [facility] Complete Blood Count Auto Di ffon 02-13-2024 Mean Corpuscular HGB Conc 35.1 g/dL High 32.0-35.0 [facility] Comment on above: Performed By: #### C BC, BMP #### [facility] [address] NRBC% 0.0 /100{WBC} Normal 0-0.5 [facility] Comment on above: Performed By: #### C BC, BMP #### [facility] [address] [place] [address] [place] Creatinine [Mass/volume] in Serum or PlasmaOrdered By: Alexander Pitts on 02-13-2024 Creatinine [Mass/Vol] 0.88 mg/dL Normal 0.60-1.20 [facility] Comment on above: Performed By: #### C BC, BMP #### [facility] [address] [place] [address] [place] Creatinine [Mass/Vol] Creatinine [Mass/volume] in Serum or Plasma 0.60-1.20 [facility] ECG 12 lead ECGon 02-13-2024 ECG 12 lead ECG [facility] [place] [address] [place], [place] [id number] Electrocardiograph Report Signed Patient: Parvez Riggins MR#: [id number] : 1955 Acct:[id number] Age/Sex: 68 / F ADM Date: 02/13/24 Loc: [place] Room: Type: [facility] Attending Dr: Darian Ba MD Ordering Provider: Alexander Pitts Jr, MD Date of Service: 02/13/24 ECG/ECG 12 lead ECG: pre-op rm 6 Copies to: Test Reason : Blood Pressure : */* mmHG Vent. Rate : 83 BPM Atrial Rate : 83 BPM P-R Int : 146 ms QRS Dur : 88 ms QT Int : 382 ms P-R-T Axes : -2 56 -11 degrees QTcB Int : 448 ms Normal sinus rhythm T wave abnormality, consider inferior ischemia Abnormal ECG No previous ECGs available Confirmed by CONNOR MEADE MD ([id number]) on 02/14/2024 9:02:54 AM Referred By: Electronically Signed By: CONNOR MEADE MD Transcribed By: MUS Signed By Connor Meade MD 0 02/14/24 09 Normal [facility] Eosinophils Auto (Bld) [#/Vo l]Ordered By: Alexander Pitts on 02-13-2024 Eosinophils (Bld) [#/Vol] Automated eosinophil count 0.0-0.45 [facility] Eosinophils/100 WBC Auto (Bl d)Ordered By: Alexander Pitts on 02-13-2024 Eosinophils/100 WBC (Bld) Automated eosinophil % . [facility] Erythrocyte distribution wid th Auto (RBC) [Ratio]Ordered By: Alexander Pitts on 02-13-2024 Erythrocyte distribution width (RBC) [Ratio] Erythrocyte distribution width [Ratio] by Automated count 11.9-15.3 [facility] Erythrocyte distribution wid th [Ratio] by Automated countOrdered By: Alexander Pitts on 02-13-2024 Erythrocyte distribution width (RBC) [Ratio] 13.3 % Normal 11.9-15.3 [facility] Comment on above: Performed By: #### C BC, BMP #### [facility] [address] [place] [address] [place] Erythrocytes [#/volume] in B lood by Automated countOrdered By: Alexander Pitts on 02-13-2024 RBC (Bld) [#/Vol] 4.17 10*6/uL Normal 3.60-5.00 [facility] Comment on above: Performed By: #### C BC, BMP #### [facility] [address] Glucose Glucometer (BldC) [M ass/Vol]Ordered By: Darian Ba on 02-13-2024 Glucose [Mass/Vol] Capillary blood glucose measurement by glucometer (mass/volume) [facility] Comment on above: Random Glucose Refer ence Range is dependent on time and content of last meal. Glucose of more than 200 mg/dL in a nonstressed, ambulatory subject supports the diagnosis of Diabetes Mellitus. Glucose Poct Glucometerson 0 02-13-2024 Commemt1 Glu2: Cleaned Meter Normal [facility] Comment on above: Result Comment: PERF ORMED BY: [facility] [address] [facility] [place] [address] PATHOLOGIST [employer] ANNA MARIE DELA CRUZ M.D. Performed By: #### G LUMARKEL #### Point of Care testing , Glucose [Mass/volume] in Ser um or PlasmaOrdered By: Alexander Pitts on 02-13-2024 Glucose [Mass/Vol] 231 mg/dL High 70-100 [place] Comment on above: ADA recommended refe rence rangeRandom Glucose Reference Range is dependent on time and content of last meal. Glucose of more than 200 mg/dL in a nonstressed, ambulatory subject supports the diagnosis of Diabetes Mellitus. Result Comment: [place] Glucose Reference Range is dependent on time and content of last meal. Glucose of more than 200 mg/dL in a nonstressed, ambulatory subject supports the diagnosis of Diabetes Mellitus. ADA recommended reference range Performed By: #### C BC, BMP #### [facility] [address] Glucose [Mass/Vol] Glucose [Mass/volume ] in Serum or Plasma High 70-100 [facility] Comment on above: ADA recommended refe rence rangeRandom Glucose Reference Range is dependent on time and content of last meal. Glucose of more than 200 mg/dL in a nonstressed, ambulatory subject supports the diagnosis of Diabetes Mellitus. Hematocrit Auto (Bld) [Volum e fraction]Ordered By: Alexander Pitts on 02-13-2024 Hematocrit (Bld) [Volume fraction] Hematocrit [Volume Fraction] of Blood by Automated count Low 34.0-46.4 [facility] Hematocrit [Volume Fraction] of Blood by Automated countOrdered By: Alexander Pitts on 02-13-2024 Hematocrit (Bld) [Volume fraction] 33.8 % Low 34.0-46.4 [facility] Comment on above: Performed By: #### C BC, BMP #### [facility] [address] [place] [address] Hemoglobin [Mass/volume] in BloodOrdered By: Aelxander Pitts on 02-13-2024 Hemoglobin (Bld) [Mass/Vol] 11.9 g/dL Normal 11.8-15.4 [facility] Comment on above: Performed By: #### C BC, BMP #### [facility] [address] [place] [address] Hemoglobin (Bld) [Mass/Vol] Hemoglobin [Mass/volume] in Blood 11.8-15.4 [facility] Leukocytes [#/volume] correc tootie for nucleated erythrocytes in Blood by Automated counOrdered By: Alexander Pitts on 02-13-2024 WBC corrected for nucl RBC Auto (Bld) [#/Vol] 6.1 10*3/uL 3.8-11.6 [facility] WBC corrected for nucl RBC Auto (Bld) [#/Vol] Leukocytes [#/volume] corrected for nucleated erythrocytes in Blood by Automated coun 3.8-11.6 [facility] Leukocytes [#/volume] in Blo od by Automated countOrdered By: Alexander Pitts on 02-13-2024 WBC (Bld) [#/Vol] 6.1 10*3/uL Normal 3.8-11.6 [place] Comment on above: Performed By: #### C ROSE MARIE, BMP #### [address] Lymphocytes Auto (Bld) [#/Vo l]Ordered By: Alexander Pitts on 02-13-2024 Lymphocytes (Bld) [#/Vol] Lymphocytes [#/volume] in Blood by Automated count Low 1.00-4.8 [facility] Lymphocytes [#/volume] in Bl ood by Automated countOrdered By: Alexander Pitts on 02-13-2024 Lymphocytes (Bld) [#/Vol] 0.4 10*3/uL Low 1.00-4.8 [facility] Comment on above: Performed By: #### C ROSE MARIE, BMP #### [address] Lymphocytes/100 WBC Auto (Bl d)Ordered By: Alexander Pitts on 02-13-2024 Lymphocytes/100 WBC (Bld) Lymphocytes/100 leukocytes in Blood by Automated count . [facility] Lymphocytes/100 leukocytes i n Blood by Automated countOrdered By: Alexander Pitts on 02-13-2024 Lymphocytes/100 WBC (Bld) 6.5 % Normal . [facility] Comment on above: Performed By: #### C ROSE MARIE, BMP #### [address] [facility] Auto (RBC) [Entitic mass ]Ordered By: Alexander Pitts on 02-13-2024 MCH (RBC) [Entitic mass] MCH [Entitic mass] by Automated count 24.7-34.3 [facility] MCH [Entitic mass] by Automa tootie countOrdered By: Alexander Pitts on 02-13-2024 MCH (RBC) [Entitic mass] 28.4 pg Normal 24.7-34.3 [facility] Comment on above: Performed By: #### C ROSE MARIE, BMP #### [facility] [address] MCHC Auto (RBC) [Mass/Vol]Or dered By: Alexander Pitts on 02-13-2024 MCHC (RBC) [Mass/Vol] 35.1 g/dL High 32.0-35.0 [facility] MCHC (RBC) [Mass/Vol] MCHC [Mass/volume] by Automated count High 32.0-35.0 [facility] MCV Auto (RBC) [Entitic vol] Ordered By: Alexander Pitts on 02-13-2024 MCV (RBC) [Entitic vol] MCV [Entitic vol ume] by Automated count 80-100 [facility] MCV [Entitic volume] by Auto mated countOrdered By: Alexander Pitts on 02-13-2024 MCV (RBC) [Entitic vol] 81.0 fL Normal 80-100 [facility] Comment on above: Performed By: #### C ROSE MARIE, BMP #### [facility] [address] [place] [address] Monocytes Auto (Bld) [#/Vol] Ordered By: Alexander Pitts on 02-13-2024 Monocytes (Bld) [#/Vol] Automated blood monocyte count 0.0-0.8 [facility] Monocytes/100 WBC Auto (Bld) Ordered By: Alexander Pitts on 02-13-2024 Monocytes/100 WBC (Bld) Automated monocyte % . [facility] Neutrophils Auto (Bld) [#/Vo l]Ordered By: Alexander Pitts on 02-13-2024 Neutrophils (Bld) [#/Vol] Neutrophils [#/volume] in Blood by Automated count 1.8-7.7 [facility] Neutrophils [#/volume] in Bl ood by Automated countOrdered By: Alexander Pitts on 02-13-2024 Neutrophils (Bld) [#/Vol] 4.7 10*3/uL Normal 1.8-7.7 [facility] Comment on above: Performed By: #### C ROSE MARIE, BMP #### [facility] [address] [place] [address] [place] Neutrophils/100 WBC Auto (Bl d)Ordered By: Alexander Pitts on 02-13-2024 Neutrophils/100 WBC (Bld) Automated neutrophil % . [facility] No Panel InformationOrdered By: Darian Ba on 02-13-2024 Bedside Glucose Comment Glu2: cleaned meter [facility] No Panel InformationOrdered By: Alexander Pitts on 02-13-2024 Estimated GFR (CKD-EPI) > 60.0 mL/Min [facility] Creatinine Clearance (Chem 72.00 [facility] Nucleated erythrocytes [Pres ence] in Blood by Automated countOrdered By: Alexander Pitts on 02-13-2024 Nucleated RBC Auto Ql (Bld) 0.0 /100{WBC} 0-0.5 [facility] Nucleated RBC Auto Ql (Bld) Nucleated erythrocytes [Presence] in Blood by Automated count 0-0.5 [facility] Platelet mean volume Auto (B ld) [Entitic vol]Ordered By: Alexander Pitts on 02-13-2024 Platelet mean volume (Bld) [Entitic vol] Platelet mean volume [Entitic volume] in Blood by Automated count 6.3-10.7 [facility] Platelet mean volume [Entiti c volume] in Blood by Automated countOrdered By: Alexander Pitts on 02-13-2024 Platelet mean volume (Bld) [Entitic vol] 6.9 fL Normal 6.3-10.7 [facility] Comment on above: Performed By: #### C ROSE MARIE, BMP #### [facility] [address] [place] [id number] [place] Platelets Auto (Bld) [#/Vol] Ordered By: Alexander Pitts on 02-13-2024 Platelets (Bld) [#/Vol] Platelets [#/vol ume] in Blood by Automated count 150-450 [facility] Platelets [#/volume] in Bloo d by Automated countOrdered By: Alexander Pitts on 02-13-2024 Platelets (Bld) [#/Vol] 289 10*3/uL Normal 150-450 [facility] Comment on above: Performed By: #### C BC, BMP #### [facility] [address] [place] [address] [place] Potassium [Moles/volume] in Serum or PlasmaOrdered By: Alexander Pitts on 02-13-2024 Potassium [Moles/Vol] 3.9 mmol/L Normal 3.5-5.1 [facility] Comment on above: Performed By: #### C BC, BMP #### [facility] [address] Potassium [Moles/Vol] Potassium [Moles/volume] in Serum or Plasma 3.5-5.1 [facility] RBC Auto (Bld) [#/Vol]Ordere d By: Alexander Pitts on 02-13-2024 RBC (Bld) [#/Vol] Erythrocytes [#/volume] in Blood by Automated count 3.60-5.00 [facility] Serum or plasma anion gap de terminationOrdered By: Alexander Pitts on 02-13-2024 Anion gap [Moles/Vol] 12.3 mmol/L Normal 6.0-15.0 [facility] Comment on above: Performed By: #### C BC, BMP #### [facility] [address] [place] [address] Anion gap [Moles/Vol] Serum or plasma an ion gap determination 6.0-15.0 [facility] Sodium [Moles/volume] in Ser um or PlasmaOrdered By: Alexander Pitts on 02-13-2024 Sodium [Moles/Vol] 136 mmol/L Normal 136-145 [place] Comment on above: Performed By: #### C BC, BMP #### [facility] [address] [place] [address] [place] Sodium [Moles/Vol] Sodium [Moles/volume ] in Serum or Plasma 136-145 [facility] Urea nitrogen [Mass/volume] in Serum or PlasmaOrdered By: Alexander Pitts on 02-13-2024 Urea nitrogen [Mass/Vol] 10 mg/dL Normal 7-25 [facility] Comment on above: Performed By: #### C BC, BMP #### [facility] [address] Urea nitrogen [Mass/Vol] Urea nitrogen [Mass/volume] in Serum or Plasma 12-12 [facility] WBC Auto (Bld) [#/Vol]Ordere d By: Alexander Pitts on 02-13-2024 WBC (Bld) [#/Vol] Leukocytes [#/volume ] in Blood by Automated count 3.8-11.6 [facility] CNPNon 02-04-2024 CNPN Normal [facility] CNPNon 02-01-2024 CNPN Normal [facility] CBC W Auto Differential pane l (Bld)on 01-31-2024 Basophils (Bld) [#/Vol] 0.05 10*3/uL Normal <0.11 [facility] Comment on above: Order Comment: Speci men Type: BLOOD SPECIMENOrdering Facility: [facility] Address: [address] [place] [address] Performed By: #### 5 7021-8 ####[facility] LABCLIA [id number] [place] [address] Basophils/100 WBC (Bld) 1.0 % Normal C [facility] Comment on above: Order Comment: Speci men Type: BLOOD SPECIMENOrdering Facility: [facility] Address: [address] [place] [address] Performed By: #### 5 7021-8 ####[facility] LABCLIA [id number] [place] [address] Differential cell count method Nom (Bld) Auto Normal [facility] Comment on above: Order Comment: Speci men Type: BLOOD SPECIMENOrdering Facility: [facility] Address: [address] [place] [address] Performed By: #### 5 7021-8 ####[facility] LABCLIA [id number] [place] [address] Eosinophils (Bld) [#/Vol] 0.30 10*3/uL Normal <0.46 [facility] Comment on above: Order Comment: Speci men Type: BLOOD SPECIMENOrdering Facility: [facility] Address: [address] [place] [address] Performed By: #### 5 7021-8 ####[facility] LABCLIA [id number] [place] [address] Eosinophils/100 WBC (Bld) 6.0 % Normal [facility] Comment on above: Order Comment: Speci men Type: BLOOD SPECIMENOrdering Facility: [facility] Address: [address] [place] [address] Performed By: #### 5 7021-8 ####[facility] LABCLIA [id number] [place] [address] Erythrocyte distribution width (RBC) [Ratio] 12.3 % Normal 11.5-15.0 [facility] Comment on above: Order Comment: Speci men Type: BLOOD SPECIMENOrdering Facility: [facility] Address: [address] [place] [address] Performed By: #### 5 7021-8 ####[facility] LABCLIA [id number] [place] [address] Hematocrit (Bld) [Volume fraction] 37.0 % Normal 36.0-46.0 [facility] Comment on above: Order Comment: Speci men Type: BLOOD SPECIMENOrdering Facility: [facility] Address: [address] [place] [address] Performed By: #### 5 7021-8 ####[facility] LABCLIA [id number] [place] [address] Hemoglobin (Bld) [Mass/Vol] 12.9 g/dL Normal 11.5-15.5 [facility] Comment on above: Order Comment: Speci men Type: BLOOD SPECIMENOrdering Facility: [facility] Address: [address] [place] [address] Performed By: #### 5 7021-8 ####[facility] LABCLIA [id number] [place] [address] Immature granulocytes (Bld) [#/Vol] 0.03 10*3/uL Normal <0.10 [facility] Comment on above: Order Comment: Speci men Type: BLOOD SPECIMENOrdering Facility: [facility] Address: [address] [place] [address] Performed By: #### 5 7021-8 ####[facility] LABCLIA [id number] [place] [address] Immature granulocytes/100 WBC (Bld) 0.6 % Normal [facility] Comment on above: Order Comment: Speci men Type: BLOOD SPECIMENOrdering Facility: [facility] Address: [address] [place] [address] Performed By: #### 5 7021-8 ####[facility] LABCLIA [id number] [place] [address] Lymphocytes (Bld) [#/Vol] 0.34 10*3/uL Low 1.00-4.00 [facility] Comment on above: Order Comment: Speci men Type: BLOOD SPECIMENOrdering Facility: [facility] Address: [address] [place] [address] Performed By: #### 5 7021-8 ####[facility] LABCLIA [id number] [place] [address] Lymphocytes/100 WBC (Bld) 6.7 % Normal [facility] Comment on above: Order Comment: Speci men Type: BLOOD SPECIMENOrdering Facility: [facility] Address: [address] [place] [address] Performed By: #### 5 7021-8 ####[facility] LABCLIA [id number] [place] [address] MCH (RBC) [Entitic mass] 28.3 pg Normal 26.0-34.0 [facility] Comment on above: Order Comment: Speci men Type: BLOOD SPECIMENOrdering Facility: [facility] Address: [address] [place] [address] Performed By: #### 5 7021-8 ####[facility] LABCLIA [id number] [place] [address] MCHC (RBC) [Mass/Vol] 34.9 g/dL Normal 30.5-36.0 [facility] Comment on above: Order Comment: Speci men Type: BLOOD SPECIMENOrdering Facility: [facility] Address: [address] [place] [address] Performed By: #### 5 7021-8 ####[facility] LABCLIA [id number] [place] [address] MCV (RBC) [Entitic vol] 81.1 fL Normal 80.0-100.0 [facility] Comment on above: Order Comment: Speci men Type: BLOOD SPECIMENOrdering Facility: [facility] Address: [address] [place] [address] Performed By: #### 5 7021-8 ####[facility] LABCLIA [id number] [place] [address] Monocytes (Bld) [#/Vol] 0.40 10*3/uL Normal <0.87 [facility] Comment on above: Order Comment: Speci men Type: BLOOD SPECIMENOrdering Facility: [facility] Address: [address] [place] [address] Performed By: #### 5 7021-8 ####[facility] LABCLIA [id number] [place] [address] Monocytes/100 WBC (Bld) 7.9 % Normal C [facility] Comment on above: Order Comment: Speci men Type: BLOOD SPECIMENOrdering Facility: [facility] Address: [address] [place] [address] Performed By: #### 5 7021-8 ####[facility] LABCLIA [id number] [place] [address] Neutrophils (Bld) [#/Vol] 3.92 10*3/uL Normal 1.45-7.50 [facility] Comment on above: Order Comment: Speci men Type: BLOOD SPECIMENOrdering Facility: [facility] Address: [address] [place] [address] Performed By: #### 5 7021-8 ####[facility] LABCLIA [id number] [place] [address] Neutrophils/100 WBC (Bld) 77.8 % Normal [facility] Comment on above: Order Comment: Speci men Type: BLOOD SPECIMENOrdering Facility: [facility] Address: [address] [place] [address] Performed By: #### 5 7021-8 ####[facility] LABCLIA [id number] [place] [address] Nucleated RBC (Bld) [#/Vol] 10*3/uL Normal <0.01 [facility] Comment on above: Order Comment: Speci men Type: BLOOD SPECIMENOrdering Facility: [facility] Address: [address] [place] [address] Performed By: #### 5 7021-8 ####[facility] LABCLIA [id number] [place] [address] Nucleated RBC/100 WBC (Bld) [Ratio] 0.0 /100 WBC Normal [facility] Comment on above: Order Comment: Speci men Type: BLOOD SPECIMENOrdering Facility: [facility] Address: [address] [place] [address] Performed By: #### 5 7021-8 ####[facility] LABCLIA [id number] [place] [address] Platelet mean volume (Bld) [Entitic vol] 8.8 fL Low 9.0-12.7 [facility] Comment on above: Order Comment: Speci men Type: BLOOD SPECIMENOrdering Facility: [facility] Address: [address] [place] [address] Performed By: #### 5 7021-8 ####[facility] LABCLIA [id number] [place] [address] Platelets (Bld) [#/Vol] 267 10*3/uL Normal 150-400 [facility] Comment on above: Order Comment: Speci men Type: BLOOD SPECIMENOrdering Facility: [facility] Address: [address] [place] [address] Performed By: #### 5 7021-8 ####[facility] LABIA [id number] [place] [address] RBC (Bld) [#/Vol] 4.56 10*6/uL Normal 3.90-5.20 [facility] Comment on above: Order Comment: Speci men Type: BLOOD SPECIMENOrdering Facility: [facility] Address: [address] [place] [address] Performed By: #### 5 7021-8 ####[facility] LABCLIA [id number] [place] [address] WBC (Bld) [#/Vol] 5.04 10*3/uL Normal 3.70-11.00 [facility] Comment on above: Order Comment: Speci men Type: BLOOD SPECIMENOrdering Facility: [facility] Address: [address] [place] [address] Performed By: #### 5 7021-8 ####[facility] LABIA [id number] [place] [address] CEA SerPl-ncon 01-31-2024 Carcinoembryonic Ag [Mass/Vol] 2.8 ng/mL Normal <=2.9 [facility] Comment on above: Order Comment: Speci men Type: BLOOD SPECIMENOrdering Facility: [facility] Address: [address] [place] [address] Result Comment: Carc inoembryonic antigen test is used as an aid in monitoring response to treatment or recurrence in patients with established colorectal, breast, lung, prostatic, pancreatic, and ovarian carcinomas. Clinical correlation is required.The Carcinoembryonic antigen test was performed using the [employer] Un[employer]el DXI paramagnetic particle chemiluminescent immunoassay method. Results obtained with different assay methods or kits cannot be used interchangeably. Performed By: #### 2 039-6 ####[facility] LABCLIA [id number] [facility] [id number] [address] [place] CNNURSEon 01-31-2024 CNNURSE Normal [facility] CNOVSPon 01-31-2024 CNOVSP Normal [facility] Comprehensive metabolic 2000 panelon 01-31-2024 Albumin [Mass/Vol] 4.1 g/dL Normal 3.9-4.9 [facility] Comment on above: Order Comment: Speci men Type: BLOOD SPECIMENOrdering Facility: [facility] Address: [address] [place] [address] Performed By: #### 2 4323-8 ####[facility] LABCLIA [id number] [place] [address] ALP [Catalytic activity/Vol] 108 U/L Normal 34-123 [facility] Comment on above: Order Comment: Speci men Type: BLOOD SPECIMENOrdering Facility: [facility] Address: [address] [place] [address] Performed By: #### 2 4323-8 ####[facility] LABCLIA [id number] [place] [address] ALT [Catalytic activity/Vol] 10 U/L Normal 7-38 [facility] Comment on above: Order Comment: Speci men Type: BLOOD SPECIMENOrdering Facility: [facility] Address: [address] [place] [id number] Performed By: #### 2 4323-8 ####[facility] LABIA [id number] [place] [address] Anion gap [Moles/Vol] 12 mmol/L Normal 8-15 [facility] Comment on above: Order Comment: Speci men Type: BLOOD SPECIMENOrdering Facility: [facility] Address: [address] [place] [id number] Performed By: #### 2 4323-8 ####[facility] LABCLIA [id number] [place] [address] AST [Catalytic activity/Vol] 9 U/L Low 13-35 [facility] Comment on above: Order Comment: Speci men Type: BLOOD SPECIMENOrdering Facility: [facility] Address: [address] [place] [address] Performed By: #### 2 4323-8 ####[facility] LABCLIA [id number] [place] [address] Bilirubin [Mass/Vol] 0.9 mg/dL Normal 0.2-1.3 [facility] Comment on above: Order Comment: Speci men Type: BLOOD SPECIMENOrdering Facility: [facility] Address: [address] [place] [address] Performed By: #### 2 4323-8 ####[facility] LABCLIA [id number] [place] [address] Calcium [Mass/Vol] 9.6 mg/dL Normal 8.5-10.2 [facility] Comment on above: Order Comment: Speci men Type: BLOOD SPECIMENOrdering Facility: [facility] Address: [address] [place] [address] Performed By: #### 2 4323-8 ####[facility] LABCLIA [id number] [place] [address] Chloride [Moles/Vol] 100 mmol/L Normal 98-107 [facility] Comment on above: Order Comment: Speci men Type: BLOOD SPECIMENOrdering Facility: [facility] Address: [address] [place] [address] Performed By: #### 2 4323-8 ####[facility] LABCLIA [id number] [place] [address] CO2 [Moles/Vol] 27 mmol/L Normal 22-30 [facility] Comment on above: Order Comment: Speci men Type: BLOOD SPECIMENOrdering Facility: [facility] Address: [address] [place] [id number] Performed By: #### 2 4323-8 ####[facility] LABCLIA [id number] [place] [address] Creatinine [Mass/Vol] 1.16 mg/dL High 0.58-0.96 [facility] Comment on above: Order Comment: Speci men Type: BLOOD SPECIMENOrdering Facility: [facility] Address: [address] [place] [address] Performed By: #### 2 4323-8 ####[facility] LABCLIA [id number] [place] [address] Creatinine and Glomerular filtration rate.predicted panel (S/P/Bld) 52 mL/min/1.73m??? Low >=60 [facility] Comment on above: Order Comment: Apolinari men Type: BLOOD SPECIMENOrdering Facility: [facility] Address: [address] [place] [address] Result Comment: Lisbeth mated Glomerular Filtration Rate (eGFR) is calculated using the 2020 CKD-EPI creatinine equation. This equation utilizes serum creatinine, sex, and age as parameters. The creatinine assay has traceable calibration to isotope dilution-mass spectrometry. Refer to KDIGO guidelines for clinical interpretation. In patients with unstable renal function, e.g. those with acute kidney injury, the eGFR may not accurately reflect actual GFR. Performed By: #### 2 4323-8 ####[facility] LABCLIA [id number] [place] [address] Glucose [Mass/Vol] 326 mg/dL High 74-99 [facility] Comment on above: Order Comment: Apolinari men Type: BLOOD SPECIMENOrdering Facility: [facility] Address: [address] [place] [address] Result Comment: The [place] [employer] (ADA) provides guidance for cutoff values for fasting glucose and random glucose. The ADA defines fasting as no caloric intake for at least 8 hours. Fasting plasma glucose results between 100 to 125 mg/dL indicate increased risk for diabetes (prediabetes).Fasting plasma glucose results greater than or equal to 126 mg/dL meet the criteria for diagnosis of diabetes. In the absence of unequivocal hyperglycemia, results should be confirmed by repeat testing. In a patient with classic symptoms of hyperglycemia or hyperglycemic crisis, random plasma glucose results greater than or equal to 200 mg/dL meet the criteria for diagnosis of diabetes.Reference: Standards of Medical Care in Diabetes 2016, [place] [employer]. Diabetes Care. 2016.39(Suppl 1). Performed By: #### 2 4323-8 ####[facility] LABCLIA [id number] [place] [address] Potassium [Moles/Vol] 3.9 mmol/L Normal 3.7-5.1 [facility] Comment on above: Order Comment: Speci men Type: BLOOD SPECIMENOrdering Facility: [facility] Address: [address] [place] [address] Performed By: #### 2 4323-8 ####[facility] LABCLIA [id number] [place] [address] Protein [Mass/Vol] 7.3 g/dL Normal 6.3-8.0 [facility] Comment on above: Order Comment: Speci men Type: BLOOD SPECIMENOrdering Facility: [facility] Address: [address] [place] [address] Performed By: #### 2 4323-8 ####[facility] LABCLIA [id number] [place] [address] Sodium [Moles/Vol] 139 mmol/L Normal 136-144 [facility] Comment on above: Order Comment: Speci men Type: BLOOD SPECIMENOrdering Facility: [facility] Address: [address] [place] [address] Performed By: #### 2 4323-8 ####[facility] LABCLIA [id number] [place] [address] Urea nitrogen [Mass/Vol] 16 mg/dL Normal 7-21 [facility] Comment on above: Order Comment: Speci men Type: BLOOD SPECIMENOrdering Facility: [facility] Address: [address] [place] [address] Performed By: #### 2 4323-8 ####[facility] LABCLIA [id number] [place] [address] CNNURSEon 01-30-2024 CNNURSE Normal [facility] CNPNon 01-30-2024 CNPN Normal [facility] CNPNon 01-28-2024 CNPN Normal [facility] CNOVSPon 01-15-2024 CNOVSP Normal [facility] CNPNon 01-14-2024 CNPN Normal [facility] MR Pelvis WO contraston 12-20 IMPRESSION: Since 09/04/23, post treatment primary tumor assessment: Incomplete response (likely residual tumor). -Previously noted polypoid masslike rectal neoplasm has decreased with residual wall thickening. Interval resolution of previously noted mesorectal lymph nodes. mrTRG: Grade 3 - Moderate response Suspicious Mesorectal lymph nodes: No. Suspicious Extramesorectal lymph nodes: No. Yard Crane Operator: FLAVIA Transcribe Date/Time: Jan 12 2024 8:04P Dictated by : SHON MOORE MD This examination was interpreted and the report reviewed and electronically signed by: SHON MOORE MD on Jan 14 2024 11:16AM [facility] * * *Final Report* * * DATE OF EXAM: Jan 10 2024 3:00PM [facility] 0754 - MRI RECTUM WO/W IVCON / PROCEDURE REASON: Malignant neoplasm of rectum (HCC) * * * * Physician Interpretation * * * * MRI OF THE PELVIS WITHOUT AND WITH CONTRAST: RECTAL CANCER RESTAGING CLINICAL HISTORY: Rectal Cancer RESTAGING Pretreatment Tumor Staging: clinical stage IIIB T3a N2M0 Rectal tumor histology: Invasive moderately differentiated adenocarcinoma Prior chemotherapy or radiation: Xeloda and XRT started 10/16/2023- Planned YANIV, sp 5,040 cGy in 28 fractions Other: COMPARISON: 09/04/23. TECHNIQUE: Magnet: 1.5T scanner. Multiplanar MRI with multiple sequences before and after contrast. Contrast: IV: 19 ml of Dotarem : ml of Rectal: 60 cc ml of Surgilube RESULT: TREATED PRIMARY TUMOR CHARACTERISTICS (Compare to pre-treatment): DWI (with associated low ADC) ? restricted diffusion and low ADC in tumor or tumor bed: Present, improved from prior. MRI-T2W: Mixed dark T2/scar and intermediate signal. T2 bright mucin (cannot distinguish between cellular and acellular mucin): Absent. Description: Previously noted polypoid masslike neoplasm has decreased with residual rectal wall thickening. Distance of the inferior margin of treated tumor to the anal verge: 8.0 cm (3:26) Distance of the inferior margin to the top of sphincter complex/anorectal junction: 5.5 cm (3:26) Relationship to anterior peritoneal reflection: Straddles Craniocaudal length: 6.0 cm (3:26) Pre-treatment craniocaudal length: 6.9 cm Tumor location: Mid rectum (5-10 cm) Maximal wall thickness: 1.9 cm (8:18) Pre-treatment wall thickness: 6.6 cm Invasion of anal sphincter complex: Absent. [...] (< 1 mm) the MRF? No. Comments: Interval resolution of the previously noted left mesorectal lymph node in this location. T4 disease interval change: Not applicable POST-TREATMENT TUMOR REGRESSION: mrTRG: Grade 3 - Moderate response LYMPH NODES: Mesorectal/superior rectal lymph nodes and/or tumor deposits: N0 (no visible lymph nodes/deposits or only < 5 mm short axis) Interval resolution previously noted mesorectal lymph nodes. Suspicious extra mesorectal lymph nodes: None. OTHER FINDINGS: Postoperative changes of the spine. 2.8 cm right adnexal cyst. Trace loculated perirectal ascites. [facility] Provider, [facility] - 01/14/2024 * * *Final Report* * * DATE OF EXAM: Jan 10 2024 3:00PM [facility] 0754 - MRI RECTUM WO/W IVCON / PROCEDURE REASON: Malignant neoplasm of rectum (HCC) * * * * Physician Interpretation * * * * MRI OF THE PELVIS WITHOUT AND WITH CONTRAST: RECTAL CANCER RESTAGING CLINICAL HISTORY: Rectal Cancer RESTAGING Pretreatment Tumor Staging: clinical stage IIIB T3a N2M0 Rectal tumor histology: Invasive moderately differentiated adenocarcinoma Prior chemotherapy or radiation: Xeloda and XRT started 10/16/2023- Planned YANIV, sp 5,040 cGy in 28 fractions Other: COMPARISON: 09/04/23. TECHNIQUE: Magnet: 1.5T scanner. Multiplanar MRI with multiple sequences before and after contrast. Contrast: IV: 19 ml of Dotarem : ml of Rectal: 60 cc ml of Surgilube RESULT: TREATED PRIMARY TUMOR CHARACTERISTICS (Compare to pre-treatment): DWI (with associated low ADC) ? restricted diffusion and low ADC in tumor or tumor bed: Present, improved from prior. MRI-T2W: Mixed dark T2/scar and intermediate signal. T2 bright mucin (cannot distinguish between cellular and acellular mucin): Absent. Description: Previously noted polypoid masslike neoplasm has decreased with residual rectal wall thickening. Distance of the inferior margin of treated tumor to the anal verge: 8.0 cm (3:26) Distance of the inferior margin to the top of sphincter complex/anorectal junction: 5.5 cm (3:26) Relationship to anterior peritoneal reflection: Straddles Craniocaudal length: 6.0 cm (3:26) Pre-treatment craniocaudal length: 6.9 cm Tumor location: Mid rectum (5-10 cm) Maximal wall thickness: 1.9 cm (8:18) Pre-treatment wall thickness: 6.6 cm Invasion of anal sphincter complex: Absent. [...] (< 1 mm) the MRF? No. Comments: Interval resolution of the previously noted left mesorectal lymph node in this location. T4 disease interval change: Not applicable POST-TREATMENT TUMOR REGRESSION: mrTRG: Grade 3 - Moderate response LYMPH NODES: Mesorectal/superior rectal lymph nodes and/or tumor deposits: N0 (no visible lymph nodes/deposits or only < 5 mm short axis) Interval resolution previously noted mesorectal lymph nodes. Suspicious extra mesorectal lymph nodes: None. OTHER FINDINGS: Postoperative changes of the spine. 2.8 cm right adnexal cyst. Trace loculated perirectal ascites. IMPRESSION IMPRESSION: Since 09/04/23, post treatment primary tumor assessment: Incomplete response (likely residual tumor). -Previously noted polypoid masslike rectal neoplasm has decreased with residual wall thickening. Interval resolution of previously noted mesorectal lymph nodes. mrTRG: Grade 3 - Moderate response Suspicious Mesorectal lymph nodes: No. Suspicious Extramesorectal lymph nodes: No. Yard Crane Operator: [facility] Transcribe Date/Time: Jan 12 2024 8:04P Dictated by : SHON MOORE MD This examination was interpreted and the report reviewed and electronically signed by: SHON MOORE MD on Jan 14 2024 11:16AM EST [facility] MR Pelvis WO contrastOrdered By: [facility] Provider on 01-14-2024 [facility] MR Pelvis WO contraston 12-20 Radiology Study observation (narrative) [facility] MRI RECTUM WO/W IVCONon 12-20 MRI RECTUM WO/W IVCON * * *Final Report* * * DATE OF EXAM: Jan 10 2024 3:00PM [facility] 0754 - MRI RECTUM WO/W IVCON / PROCEDURE REASON: Malignant neoplasm of rectum (HCC) * * * * Physician Interpretation * * * * MRI OF THE PELVIS WITHOUT AND WITH CONTRAST: RECTAL CANCER RESTAGING CLINICAL HISTORY: Rectal Cancer RESTAGING Pretreatment Tumor Staging: clinical stage IIIB T3a N2M0 Rectal tumor histology: Invasive moderately differentiated adenocarcinoma Prior chemotherapy or radiation: Xeloda and XRT started 10/16/2023- Planned YANIV, sp 5,040 cGy in 28 fractions Other: COMPARISON: 09/04/23. TECHNIQUE: Magnet: 1.5T scanner. Multiplanar MRI with multiple sequences before and after contrast. Contrast: IV: 19 ml of Dotarem : ml of Rectal: 60 cc ml of Surgilube RESULT: TREATED PRIMARY TUMOR CHARACTERISTICS (Compare to pre-treatment): DWI (with associated low ADC) ? restricted diffusion and low ADC in tumor or tumor bed: Present, improved from prior. MRI-T2W: Mixed dark T2/scar and intermediate signal. T2 bright mucin (cannot distinguish between cellular and acellular mucin): Absent. Description: Previously noted polypoid masslike neoplasm has decreased with residual rectal wall thickening. Distance of the inferior margin of treated tumor to the anal verge: 8.0 cm (3:26) Distance of the inferior margin to the top of sphincter complex/anorectal junction: 5.5 cm (3:26) Relationship to anterior peritoneal reflection: Straddles Craniocaudal length: 6.0 cm (3:26) Pre-treatment craniocaudal length: 6.9 cm Tumor location: Mid rectum (5-10 cm) Maximal wall thickness: 1.9 cm (8:18) Pre-treatment wall thickness: 6.6 cm Invasion of anal sphincter complex: Absent. [...] (< 1 mm) the MRF? No. Comments: Interval resolution of the previously noted left mesorectal lymph node in this location. T4 disease interval change: Not applicable POST-TREATMENT TUMOR REGRESSION: mrTRG: Grade 3 - Moderate response LYMPH NODES: Mesorectal/superior rectal lymph nodes and/or tumor deposits: N0 (no visible lymph nodes/deposits or only < 5 mm short axis) Interval resolution previously noted mesorectal lymph nodes. Suspicious extra mesorectal lymph nodes: None. OTHER FINDINGS: Postoperative changes of the spine. 2.8 cm right adnexal cyst. Trace loculated perirectal ascites. IMPRESSION: Since 09/04/23, post treatment primary tumor assessment: Incomplete response (likely residual tumor). -Previously noted polypoid masslike rectal neoplasm has decreased with residual wall thickening. Interval resolution of previously noted mesorectal lymph nodes. mrTRG: Grade 3 - Moderate response Suspicious Mesorectal lymph nodes: No. Suspicious Extramesorectal lymph nodes: No. Yard Crane Operator: FLAVIA Transcribe Date/Time: Jan 12 2024 8:04P Dictated by : SHON MOORE MD This examination was interpreted and the report reviewed and electronically signed by: SHON MOORE MD on Jan 14 2024 11:16AM EST [id number] N [facility] 01-09-2024 [facility] Telephone (RGFV) PARVEZ RIGGINS ([id number]) 1955 F Date Time Provider Department 01/09/24 TERRIE MOTA [facility] During your visit today, we recorded the following information about you: Terrie Mota 01/09/2024 3:25 PM Signed Appointment reminder call- left message with directions to office and number to call if they cannot keep this appointment [phone] opt #1 then 1 for MRI Allergies As of Date: 01/09/2024 Noted Allergy Reaction CODEINE 10/01/2018 14 - Other: See Comments Comments: Nausea TRAMADOL 10/17/2018 11 - Vomiting Date Reviewed: 11/21/2023 Reviewed by: Jessica Eubanks PA-C - Fully Assessed Reason for Visit: Appointment instructions [Other] Prescriptions as of 01/09/2024 - polyethylene glycol 3350 17 gram packet Take 17 g by mouth. - semaglutide (OZEMPIC) 1 mg/dose (2 mg/1.5 mL) pen Inject 1 mg subcutaneously one time a week. - atorvastatin (LIPITOR) 40 mg tablet Take 40 mg by mouth daily at bedtime. - clobetasol (TEMOVATE) 0.05 % cream Apply 1 Application to affected area two times a day. - metoprolol tartrate, short acting, (LOPRESSOR) 50 mg tablet Take 50 mg by mouth two times a day. - Mirtazapine (REMERON) 7.5 mg tablet Take 7.5 mg by mouth once daily. - JANUMET XR 50-1,000 mg TM24 Take 1 tablet by mouth every afternoon. - spironolactone (ALDACTONE) 25 mg tablet Take 50 mg by mouth every morning. - cannabidiol, CBD, (CANNABIDIOL ORAL) Take 10 mg by mouth daily at bedtime. - prochlorperazine (COMPAZINE) 10 mg tablet Take 1 tablet by mouth every 6 hours as needed. - ondansetron (ZOFRAN) 8 mg tablet Take 1 tablet by mouth every 8 hours as needed for nausea/vomiting. - capecitabine (XELODA) 500 mg tablet Take 3 tablets (1,500 mg) by mouth two times a day with food, on days of radiation only (MON-FRI only). - aspirin, enteric coated (ASPIRIN, ENTERIC COATED) 81 mg EC tablet Take 81 mg by mouth every other day. - busPIRone (BUSPAR) 10 mg tablet Take by mouth. - ferrous sulfate 325 mg (65 mg iron) tablet Take 325 mg by mouth every 48 hours. - meclizine (ANTIVERT) 25 mg tab Take by mouth at bedtime as needed. - nystatin (MYCOSTATIN) ointment Apply 1 Application to affected area. - insulin glargine (LANTUS SOLOSTAR U-100 INSULIN) 100 unit/mL (3 mL) Inject 80 Units subcutaneously daily at bedtime. - irbesartan (AVAPRO) 75 mg tablet Take 75 mg by mouth daily at bedtime. - insulin lispro (HUMALOG KWIKPEN INSULIN) 100 unit/mL inpn Inject subcutaneously as directed. - amLODIPine (NORVASC) 10 mg tablet Take 10 mg by mouth once daily. - Acetaminophen 500 mg cap Take 500 mg by mouth as needed. Problem List As Of Date 01/09/2024 Noted Resolved Hypertension [I10] Diabetes (HCC) [E11.9] Rectal cancer (HCC) [C20] 10/16/2023 Stage 3a chronic kidney disease (HCC) [N18.31] 10/31/2023 Encounter Status:Closed by TERRIE MOTA on 01/09/24 Normal [facility] COMPREHENSIVE METABOLIC PANE Felix 12-27-2023 Albumin [Mass/Vol] 4.2 g/dL Normal 3.2-5.3 [facility] Comment on above: Performed By: #### C DANGELO, 28773-0, HA1C #### [facility] ([id number]) [address], [address] [place] [address] ALP [Catalytic activity/Vol] 90 U/L Normal 39-130 [facility] Comment on above: Performed By: #### C DANGELO, 61332-3, HA1C #### [facility] ([id number]) [address], [address] [place] [address] ALT [Catalytic activity/Vol] 10 U/L Normal 0-31 [facility] Comment on above: Performed By: #### Elva PIERSON, 41449-9, HA1C #### [facility] ([id number]) [address], [address] [place] [address] Anion gap [Moles/Vol] 11 mmol/L Normal 5-15 [facility] Comment on above: Performed By: #### Elva PIERSON, 44196-3, HA1C #### [facility] ([id number]) [address], [address] [place] [address] AST [Catalytic activity/Vol] 15 U/L Normal 0-41 [facility] Comment on above: Performed By: #### Elva PIERSON, 26461-8, HA1C #### [facility] ([id number]) [address], [address] [place] [address] Bilirubin [Mass/Vol] 1.7 mg/dL High 0.3-1.2 [facility] Comment on above: Performed By: #### Elva PIERSON, 05471-1, HA1C #### [facility] ([id number]) [address], [address] [place] [address] Calcium [Mass/Vol] 10.6 mg/dL High 8.5-10.5 [facility] Comment on above: Performed By: #### Elva PIERSON 70044-9, ROBE1C #### [facility] ([id number]) [address], [address] [place] [address] Chloride [Moles/Vol] 102 mmol/L Normal 98-109 [facility] Comment on above: Performed By: #### Guille Stevenson MP31-1, ROBE1C #### [facility] ([id number]) [address], [address] [place] [address] CO2 [Moles/Vol] 28 mmol/L Normal 22-32 [facility] Comment on above: Performed By: #### Elva PIERSON 19072-3, JUVENAL #### [facility] ([id number]) [address], [address] [place] [address] Creatinine [Mass/Vol] 1.03 mg/dL High 0.40-1.00 [facility] Comment on above: Result Comment: METH OD TRACEABLE TO IDMS STANDARD Performed By: #### Elva PIERSON 84030-9, ROBE1C #### [facility] ([id number]) [address], [address] [place] [address] GFR/1.73 sq M.predicted among non-blacks MDRD (S/P/Bld) [Vol rate/Area] 60 mL/min/{1.73_m2} Normal >59 [facility] Comment on above: Result Comment: Reported eGFR is based on the CKD-EPI 2020 equation that does not use a race coefficient. Performed By: #### Elva PIERSON 45395-1, ROBE1C #### [facility] ([id number]) [address], [address] [place] [address] Glucose [Mass/Vol] 206 mg/dL High 65-99 [facility] Comment on above: Performed By: #### Guille Stevenson MP31-1, ROBE1C #### [facility] ([id number]) [address], [address] [place] [address] Potassium [Moles/Vol] 3.3 mmol/L Low 3.5-5.0 [facility] Comment on above: Performed By: #### Elva PIERSON, 58602-8, HA1C #### [facility] ([id number]) [address], [address] [place] [address] Protein [Mass/Vol] 7.2 g/dL Normal 6.0-8.0 [facility] Comment on above: Performed By: #### lEva PIERSON, 30003-4, HA1C #### [facility] ([id number]) [address], [address] [place] [address] Sodium [Moles/Vol] 141 mmol/L Normal 134-146 [facility] Comment on above: Performed By: #### Elva PIERSON, 11262-7, ROBE1C #### [facility] ([id number]) [address], [address] [place] [address] Urea nitrogen [Mass/Vol] 11 mg/dL Normal 5-27 [facility] Comment on above: Performed By: #### Elva PIERSON, 03159-0, HA1C #### [facility] ([id number]) [address], [address] [place] [address] HGB A1C (GLYCO-HGB)on 2023 Glucose [Mass/Vol] 192 mg/dL Normal [facility] Comment on above: Performed By: #### Elva PIERSON, 13998-2, HA1C #### [facility] ([id number]) [address], [address] [place] [address] HbA1c (Bld) [Mass fraction] 8.3 % High 4.4-5.6 [facility] Comment on above: Result Comment: NOTE ADA Guidelines Result HgbA1c Normal : less than 5.7 % Prediabetes : 5.7 % to 6.4 % Diabetes : > 6.4 % Use with caution in patients with abnormal hemoglobin variants as the half-life of red blood cells and in vivo glycation rates are affected. Performed By: #### Elva PIERSON, 37952-1, HA1C #### [facility] ([id number]) [address], [address] [place] [address] Lipid 1996 panelon 4 Cholesterol [Mass/Vol] 262 mg/dL High 150-200 [facility] Comment on above: Performed By: #### Elva PIERSON, 88219-3, JUVENAL #### [facility] ([id number]) [address], [address] [place] [address] Cholesterol in HDL [Mass/Vol] 38 mg/dL Low >39 [facility] Comment on above: Result Comment: HDL <40 mg/dL - High Risk HDL > or = 40mg/dL- Desirable HDL >60 mg/dL - Negative Risk Performed By: #### Elva PIERSON, 17252-2, HA1C #### [facility] ([id number]) [address], [address] [place] [address] Cholesterol in LDL [Mass/Vol] 158 mg/dL High <130 [facility] Comment on above: Result Comment: LDL <100 mg/dL - Desirable LDL >160 mg/dL - High Risk Performed By: #### Elva PIERSON, 11017-2, HA1C #### [facility] ([id number]) [address], [address] [place] [address] Cholesterol in VLDL [Mass/Vol] 66 mg/dL High 0-30 [facility] Comment on above: Performed By: #### C DANGELO 62294-8, HA1C #### [facility] ([id number]) [address], [address] [place] [address] CHOLESTEROL:HDL 6.9 High 1.0-5.0 [facility] Comment on above: Performed By: #### Elva PIERSON 21597-7, ROBE1C #### [facility] ([id number]) [address], [address] [place] [address] Triglyceride [Mass/Vol] 331 mg/dL High 27-150 [facility] Comment on above: Performed By: #### Elva PIERSON 81192-7, JUVENAL #### [facility] ([id number]) [address], [address] [place] [address] MICROALBUMIN - ALBUMIN:CREAT ININE URINE RATIOon 12-27-2023 ALB/CREAT RATIO 49.4 mg/g creat High 0.0-30.0 [facility] Comment on above: Performed By: #### M ALBU #### [facility] ([id number]) [address], [address] [place] [address] Albumin DL <= 20 mg/L (U) [Mass/Vol] 22.6 mg/dL High 0.0-1.9 [facility] Comment on above: Performed By: #### M ALBU #### [facility] ([id number]) [address], [address] [place] [address] URINE CREAT 457.94 mg/dL Normal [facility] Comment on above: Performed By: #### M ALBU #### [facility] ([id number]) [address], [address] [place] [address] CT Chest W contrast Waqas IMPRESSION: No metastatic disease in the chest. Transcribe Date/Time: Nov 26 2023 8:10A Dictated by: PAWEL ODONNELL MD This examination was interpreted and the report reviewed and electronically signed by: PAWEL ODONNELL MD on Nov 26 2023 8:28AM EST Thank you for allowing us to participate in the care of your patient. Should there be any questions regarding this interpretation, please call [phone]. If you are unable to reach us at the number above, please feel free to contact [facility] at [phone]. DIVISION OF RADIOLOGY * * *Final Report* * * DATE OF EXAM: Nov 23 2023 12:00PM [facility] 0539 - CT CHEST W IVCON / PROCEDURE REASON: multiple diagnoses * * * * Physician Interpretation * * * * RESULT: EXAMINATION: CHEST CT WITH CONTRAST CLINICAL HISTORY: Malignant neoplasm of rectum (HCC) Rectal cancer (HCC) Lung nodules Technique: Spiral CT acquisition of the chest from the thoracic inlet to the upper abdomen following IV contrast. MQ: CTCWR_5 Contrast: 50 mL Omnipaque [address] Dose-Length Product: 289 mGy*cm CT Dose Reduction Employed: Automated exposure control (AEC) Comparison: 07/16/2023 RESULT: Lines, tubes, and devices: None. Lung parenchyma and airways: Trachea and central airways are patent. Biapical pleuroparenchymal scarring. Unchanged scattered pulmonary nodules for example a 5 mm nodule left upper lobe (image 51). 3 mm nodule lingula (image 134). No new suspicious appearing pulmonary nodules. Pleural space: No pleural effusion or pneumothorax. Lower neck, lymph nodes, and mediastinum: No axillary, supraclavicular, mediastinal or hilar lymphadenopathy by CT size criteria. Heart, pericardium, and thoracic vessels: The heart is normal in size. No pericardial effusion. The thoracic aorta and main pulmonary artery are normal in caliber. Bones/Soft Tissues: No aggressive osseous lesions. Upper abdomen: Dedicated CT imaging of the abdomen and pelvis was performed concurrently and is dictated separately. Avionics Shop Supervisor (topogram) images: Unremarkable. DIVISION OF RADIOLOGY Provider, [facility] Timo [facility] - 11/26/2023 * * *Final Report* * * DATE OF EXAM: Nov 23 2023 12:00PM [facility] 0539 - CT CHEST W IVCON / PROCEDURE REASON: multiple diagnoses * * * * Physician Interpretation * * * * RESULT: EXAMINATION: CHEST CT WITH CONTRAST CLINICAL HISTORY: Malignant neoplasm of rectum (HCC) Rectal cancer (HCC) Lung nodules Technique: Spiral CT acquisition of the chest from the thoracic inlet to the upper abdomen following IV contrast. MQ: CTCWR_5 Contrast: 50 mL Omnipaque [address] Dose-Length Product: 289 mGy*cm CT Dose Reduction Employed: Automated exposure control (AEC) Comparison: 07/16/2023 RESULT: Lines, tubes, and devices: None. Lung parenchyma and airways: Trachea and central airways are patent. Biapical pleuroparenchymal scarring. Unchanged scattered pulmonary nodules for example a 5 mm nodule left upper lobe (image 51). 3 mm nodule lingula (image 134). No new suspicious appearing pulmonary nodules. Pleural space: No pleural effusion or pneumothorax. Lower neck, lymph nodes, and mediastinum: No axillary, supraclavicular, mediastinal or hilar lymphadenopathy by CT size criteria. Heart, pericardium, and thoracic vessels: The heart is normal in size. No pericardial effusion. The thoracic aorta and main pulmonary artery are normal in caliber. Bones/Soft Tissues: No aggressive osseous lesions. Upper abdomen: Dedicated CT imaging of the abdomen and pelvis was performed concurrently and is dictated separately. Avionics Shop Supervisor (topogram) images: Unremarkable. IMPRESSION IMPRESSION: No metastatic disease in the chest. Transcribe Date/Time: Nov 26 2023 8:10A Dictated by: PAWEL ODONNELL MD This examination was interpreted and the report reviewed and electronically signed by: PAWEL ODONNELL MD on Nov 26 2023 8:28AM EST Thank you for allowing us to participate in the care of your patient. Should there be any questions regarding this interpretation, please call [phone]. If you are unable to reach us at the number above, please feel free to contact [facility] at [phone]. [facility] CT Chest W contrast IVOrdere d By: [facility] Provider on 11-26-2023 [facility] CT Chest W contrast Waqas Radiology Study observation (narrative) Risa edwards [facility] Basic metabolic 2000 panelOr dered By: Nargis Kwon on 10-17-2023 Anion gap [Moles/Vol] 12 mmol/L 9 - 18 mmol/L [facility] Calcium [Mass/Vol] 10.6 mg/dL High 8.5 - 10. 2 mg/dL [facility] Chloride [Moles/Vol] 97 mmol/L 97 - 10 5 mmol/L [facility] CO2 [Moles/Vol] 23 mmol/L 22 - 30 mmol/L [facility] Creatinine [Mass/Vol] 1.06 mg/dL High 0.58 - 0.96 mg/dL [facility] GFR/1.73 sq M.predicted among non-blacks MDRD (S/P/Bld) [Vol rate/Area] 58 mL/min/{1.73_m2} Low - PINF [facility] Comment on above: Estimated Glomerular Filtration Rate (eGFR) is calculated using the 2020 CKD-EPI creatinine equation. This equation utilizes serum creatinine, sex, and age as parameters. The creatinine assay has traceable calibration to isotope dilution-mass spectrometry. Refer to KDIGO guidelines for clinical interpretation. In patients with unstable renal function, e.g. those with acute kidney injury, the eGFR may not accurately reflect actual GFR. Glucose [Mass/Vol] 322 mg/dL High 74 - 99 mg/dL [facility] Comment on above: The [place] Diab[employer] s Association (ADA) provides guidance for cutoff values [...] Standards of Medical Care in Diabetes 2016, [place] [employer]. Diabetes Care. 2016.39(Suppl 1). Interpretation and review of laboratory results Abnormal [facility] Potassium [Moles/Vol] 4.9 mmol/L 3.7 - 5.1 mmol/L [facility] Sodium [Moles/Vol] 132 mmol/L Low 136 - 144 mmol/L [facility] Urea nitrogen [Mass/Vol] 12 mg/dL 7 - 21 mg/dL [facility] MR Pelvis WO contraston 04- IMPRESSION: MID RECTAL SEMIANNULAR MASS. Stage: T3a N+ MRF: Clear (tumor margin >2 mm from MRF), however a metastatic mesorectal lymph node abuts the MRF Sphincter involvement: No. Suspicious extra mesorectal lymph nodes: No. EMVI: No. v 10/20/20 Yard Crane Operator: FLAVIA Transcribe Date/Time: Sep 06 2023 9:10A Dictated by : TAMMY ALONSO MD This examination was interpreted and the report reviewed and electronically signed by: TAMMY ALONSO MD on Sep 06 2023 9:33AM [facility] * * *Final Report* * * DATE OF EXAM: Sep 04 2023 4:50PM [facility] 0754 - MRI RECTUM WO/W IVCON / PROCEDURE REASON: Rectal cancer (HCC) * * * * Physician Interpretation * * * * MRI OF THE PELVIS WITHOUT AND WITH CONTRAST: RECTAL CANCER STAGING CLINICAL HISTORY: Rectal tumor histology: Adenocarcinoma Prior chemotherapy or radiation: No Other: N/A COMPARISON: Comparison is made with prior CT examination dated 07/16/2023 TECHNIQUE: Magnet: Siemens Avanto 1.5T scanner. Multiplanar MRI with multiple sequences before and after contrast. Contrast: IV: 20 cc ml of Dotarem : ml of Rectal: 60 cc ml of Surgilube RESULT: PRIMARY TUMOR: MORPHOLOGY, LOCATION, AND CHARACTERISTICS: Distance to the anal verge: 8.6 cm (3:22) Distance to the top of sphincter complex/anorectal junction: 4.7 cm (3:22) Relationship to anterior peritoneal reflection: Straddles Craniocaudal length: 6.9 cm (3:22) Tumor location: Mid rectum (5-10 cm) Morphology: Partly annular Mucinous: No mucin MR-T stage: T3a (tumor penetrates < 1 mm beyond muscularis propria) (14:20 and 16:22) Structures with possible invasion by T4b tumors: None Invasion of anal sphincter complex: Absent. Anal canal involvement: None. Comments: N/A TUMOR DEPOSITS AND EXTRAMURAL VASCULAR INVASION (EMVI): Tumor deposits:(separate from metastatic lymph nodes): No. EMVI: No. MESORECTAL FASCIA (MRF): Shortest distance of extraluminal part of the tumor to MRF: 1.5 cm (5:26) Tumor extension through the peritonealized portion of the rectum into peritoneal fat: No extension into peritoneal fat. Is there a separate tumor deposit, LN or EMVI threatening (?1mm and ?2 mm) or invading (< 1 mm) the MRF? Left mesorectal lymph node measuring 0.6 cm in short axis, abutting the mesorectal fascia (6:22) Comments: None LYMPH NODES: Mesorectal/superior rectal lymph nodes and/or tumor deposits: N+ (short axis 5-9 mm AND at least 2 morphologic criteria) N Stage: N2 Index nodes: Left mesorectal lymph node measuring 0.8 cm in short axis, (6:26)) Left mesorectal lymph node measuring 0.6 cm in short axis, (6:22) Posterior mesorectal lymph node measuring 0.5 cm short axis, (6:20) Superior rectal lymph nodes measuring 0.6 cm in short axis, (10/22/2016) Suspicious extra mesorectal lymph nodes: None OTHER FINDINGS: Unchanged simple appearing cyst in the right ovary measuring 2.7 cm. The study was interpreted by Dr. Tammy Alonso a member of the rectal cancer multidisciplinary tumor board. [facility] Provider, [facility] - 09/06/2023 * * *Final Report* * * DATE OF EXAM: Sep 04 2023 4:50PM [facility] 0754 - MRI RECTUM WO/W IVCON / PROCEDURE REASON: Rectal cancer (HCC) * * * * Physician Interpretation * * * * MRI OF THE PELVIS WITHOUT AND WITH CONTRAST: RECTAL CANCER STAGING CLINICAL HISTORY: Rectal tumor histology: Adenocarcinoma Prior chemotherapy or radiation: No Other: N/A COMPARISON: Comparison is made with prior CT examination dated 07/16/2023 TECHNIQUE: Magnet: Siemens Avanto 1.5T scanner. Multiplanar MRI with multiple sequences before and after contrast. Contrast: IV: 20 cc ml of Dotarem : ml of Rectal: 60 cc ml of Surgilube RESULT: PRIMARY TUMOR: MORPHOLOGY, LOCATION, AND CHARACTERISTICS: Distance to the anal verge: 8.6 cm (3:22) Distance to the top of sphincter complex/anorectal junction: 4.7 cm (3:22) Relationship to anterior peritoneal reflection: Straddles Craniocaudal length: 6.9 cm (3:22) Tumor location: Mid rectum (5-10 cm) Morphology: Partly annular Mucinous: No mucin MR-T stage: T3a (tumor penetrates < 1 mm beyond muscularis propria) (14:20 and 16:22) Structures with possible invasion by T4b tumors: None Invasion of anal sphincter complex: Absent. Anal canal involvement: None. Comments: N/A TUMOR DEPOSITS AND EXTRAMURAL VASCULAR INVASION (EMVI): Tumor deposits:(separate from metastatic lymph nodes): No. EMVI: No. MESORECTAL FASCIA (MRF): Shortest distance of extraluminal part of the tumor to MRF: 1.5 cm (5:26) Tumor extension through the peritonealized portion of the rectum into peritoneal fat: No extension into peritoneal fat. Is there a separate tumor deposit, LN or EMVI threatening (?1mm and ?2 mm) or invading (< 1 mm) the MRF? Left mesorectal lymph node measuring 0.6 cm in short axis, abutting the mesorectal fascia (6:22) Comments: None LYMPH NODES: Mesorectal/superior rectal lymph nodes and/or tumor deposits: N+ (short axis 5-9 mm AND at least 2 morphologic criteria) N Stage: N2 Index nodes: Left mesorectal lymph node measuring 0.8 cm in short axis, (6:26)) Left mesorectal lymph node measuring 0.6 cm in short axis, (6:22) Posterior mesorectal lymph node measuring 0.5 cm short axis, (6:20) Superior rectal lymph nodes measuring 0.6 cm in short axis, (10/22/2016) Suspicious extra mesorectal lymph nodes: None OTHER FINDINGS: Unchanged simple appearing cyst in the right ovary measuring 2.7 cm. The study was interpreted by Dr. Tammy Alonso a member of the rectal cancer multidisciplinary tumor board. IMPRESSION IMPRESSION: MID RECTAL SEMIANNULAR MASS. Stage: T3a N+ MRF: Clear (tumor margin >2 mm from MRF), however a metastatic mesorectal lymph node abuts the MRF Sphincter involvement: No. Suspicious extra mesorectal lymph nodes: No. EMVI: No. v 10/20/20 Yard Crane Operator: FLAVIA Transcribe Date/Time: Sep 06 2023 9:10A Dictated by : TAMMY ALONSO MD This examination was interpreted and the report reviewed and electronically signed by: TAMMY ALONSO MD on Sep 06 2023 9:33AM EST [facility] MR Pelvis WO contrastOrdered By: [facility] Provider on 09-06-2023 [facility] ALLIED HEALTHon 09-04-2023 [facility] HNO ID: [id number] Author: KORINA QUIJANO RT(R) Service: Radiology Author Type: Technologist Type: Allied Health Filed: 09/04/2023 16:43 Note Text: Radiology Service Progress Note DATE OF SERVICE: September 04, 2023 TIME: 4:42 PM PATIENT IDENTITY VERIFICATION COMPLETED USING TWO (2) STANDARD IDENTIFIERS: Name and Date of confirmed by patient verbally and Name and Date of confirmed by identification band. FALL SCREENING: Has the patient had 2 falls in the last year or 1 fall with injury or currently using an Ambulatory Assistive Device (Walker, Cane, Wheelchair, Crutches, etc.)? No PATIENT GENDER DATA: Female. status: : No status: NO. and N/A PATIENT RELEVANT IMPLANT DATA REVIEWED: Yes PATIENT PRESENTS WITH AN IMPLANTABLE OR ATTACHED RESEARCH TECHNICIAN: No ALLERGIES: Reviewed and unchanged CONTRAST ALLERGY: NO. EXAM: MRI - CONTRAST TYPE: GROUP II PERIPHERAL IV DATA: Ambulatory: A peripheral IV was started in the Right antecubital site with a Butterfly: 23 gauge. RADIOLOGY DEPARTMENT: MR; Exam(s) Completed: Body: Rectal SIGNATURE: RT Aiden(R) PATIENT NAME: Parvez Riggins DATE: September 04, 2023 TIME: 4:42 PM [facility] MR Pelvis WO contraston 08-19 Radiology Study observation (narrative) [facility] MRI RECTUM WO/W IVCONon 08-19 MRI RECTUM WO/W IVCON * * *Final Report* * * DATE OF EXAM: Sep 04 2023 4:50PM [facility] 0754 - MRI RECTUM WO/W IVCON / PROCEDURE REASON: Rectal cancer (HCC) * * * * Physician Interpretation * * * * MRI OF THE PELVIS WITHOUT AND WITH CONTRAST: RECTAL CANCER STAGING CLINICAL HISTORY: Rectal tumor histology: Adenocarcinoma Prior chemotherapy or radiation: No Other: N/A COMPARISON: Comparison is made with prior CT examination dated 07/16/2023 TECHNIQUE: Magnet: Siemens Avanto 1.5T scanner. Multiplanar MRI with multiple sequences before and after contrast. Contrast: IV: 20 cc ml of Dotarem : ml of Rectal: 60 cc ml of Surgilube RESULT: PRIMARY TUMOR: MORPHOLOGY, LOCATION, AND CHARACTERISTICS: Distance to the anal verge: 8.6 cm (3:22) Distance to the top of sphincter complex/anorectal junction: 4.7 cm (3:22) Relationship to anterior peritoneal reflection: Straddles Craniocaudal length: 6.9 cm (3:22) Tumor location: Mid rectum (5-10 cm) Morphology: Partly annular Mucinous: No mucin MR-T stage: T3a (tumor penetrates < 1 mm beyond muscularis propria) (14:20 and 16:22) Structures with possible invasion by T4b tumors: None Invasion of anal sphincter complex: Absent. Anal canal involvement: None. Comments: N/A TUMOR DEPOSITS AND EXTRAMURAL VASCULAR INVASION (EMVI): Tumor deposits:(separate from metastatic lymph nodes): No. EMVI: No. MESORECTAL FASCIA (MRF): Shortest distance of extraluminal part of the tumor to MRF: 1.5 cm (5:26) Tumor extension through the peritonealized portion of the rectum into peritoneal fat: No extension into peritoneal fat. Is there a separate tumor deposit, LN or EMVI threatening (?1mm and ?2 mm) or invading (< 1 mm) the MRF? Left mesorectal lymph node measuring 0.6 cm in short axis, abutting the mesorectal fascia (6:22) Comments: None LYMPH NODES: Mesorectal/superior rectal lymph nodes and/or tumor deposits: N+ (short axis 5-9 mm AND at least 2 morphologic criteria) N Stage: N2 Index nodes: Left mesorectal lymph node measuring 0.8 cm in short axis, (6:26)) Left mesorectal lymph node measuring 0.6 cm in short axis, (6:22) Posterior mesorectal lymph node measuring 0.5 cm short axis, (6:20) Superior rectal lymph nodes measuring 0.6 cm in short axis, (10/22/2016) Suspicious extra mesorectal lymph nodes: None OTHER FINDINGS: Unchanged simple appearing cyst in the right ovary measuring 2.7 cm. The study was interpreted by Dr. Tammy Alonso a member of the rectal cancer multidisciplinary tumor board. IMPRESSION: MID RECTAL SEMIANNULAR MASS. Stage: T3a N+ MRF: Clear (tumor margin >2 mm from MRF), however a metastatic mesorectal lymph node abuts the MRF Sphincter involvement: No. Suspicious extra mesorectal lymph nodes: No. EMVI: No. v 10/20/20 Yard Crane Operator: FLAVIA Transcribe Date/Time: Sep 06 2023 9:10A Dictated by : TAMMY ALONSO MD This examination was interpreted and the report reviewed and electronically signed by: TAMMY ALONSO MD on Sep 06 2023 9:33AM EST [id number] N [facility] 09-03-2023 [facility] Telephone ([place]) PARVEZ RIGGINS ([id number]) 1955 F Date Time Provider Department 09/03/23 LOYDA HARPER ([facility]) [place] During your visit today, we recorded the following information about you: Allergies As of Date: 09/03/2023 Noted Allergy Reaction CODEINE 10/01/2018 14 - Other: See Comments Comments: Nausea TRAMADOL 10/17/2018 11 - Vomiting Date Reviewed: 07/19/2023 Reviewed by: Gaby Yanez RN - Fully Assessed Reason for Visit: Appointment reminder [Other] Cmt: Appointment reminder call--spoke with patient--gave directions to the office. Prescriptions as of 09/03/2023 - aspirin, enteric coated (ASPIRIN, ENTERIC COATED) 81 mg EC tablet Take 81 mg by mouth every other day. - busPIRone (BUSPAR) 10 mg tablet Take by mouth. - ferrous sulfate 325 mg (65 mg iron) tablet Take 325 mg by mouth every 48 hours. - meclizine (ANTIVERT) 25 mg tab Take by mouth at bedtime as needed. - nystatin (MYCOSTATIN) ointment Apply 1 Application to affected area. - potassium chloride ER (KLOR-CON) 20 mEq tablet Take 1 tablet by mouth every morning. - Potassium Gluconate 595 mg (99 mg) tab Take 595 mg by mouth. - semaglutide (OZEMPIC) 1 mg/dose (4 mg/3 mL) pen Inject 1 mg subcutaneously one time a week. - insulin glargine (LANTUS SOLOSTAR U-100 INSULIN) 100 unit/mL (3 mL) Inject subcutaneously. - fluconazole (DIFLUCAN) 150 mg tablet Take 150 mg by mouth as directed. - irbesartan (AVAPRO) 75 mg tablet Take 75 mg by mouth daily at bedtime. - insulin lispro (HUMALOG KWIKPEN INSULIN) 100 unit/mL inpn Inject subcutaneously as directed. - sitaGLIPtin-metFORMIN (JANUMET) 50-1,000 mg per tablet Take 1 tablet by mouth two times a day with meals. - amLODIPine (NORVASC) 10 mg tablet Take 10 mg by mouth once daily. - Acetaminophen 500 mg cap Take 500 mg by mouth as needed. Problem List As Of Date 09/03/2023 Noted Resolved Hypertension [I10] Diabetes (HCC) [E11.9] Encounter Status:Closed by LOYDA HARPER on 09/03/23 Normal [facility] BASIC METABOLIC PANLon 08-19 Anion gap [Moles/Vol] 9 mmol/L Normal 5-15 [facility] Comment on above: Performed By: #### C BCA, BMP #### [facility] ([id number]) [address], [address] [place] [address] Calcium [Mass/Vol] 8.8 mg/dL Normal 8.5-10.5 [facility] Comment on above: Performed By: #### C BCA, BMP #### [facility] ([id number]) [address], [address] [place] [address] Chloride [Moles/Vol] 103 mmol/L Normal 98-109 [facility] Comment on above: Performed By: #### C BCA, BMP #### [facility] ([id number]) [address] [address] CO2 [Moles/Vol] 26 mmol/L Normal 22-32 [facility] Comment on above: Performed By: #### C BCA, BMP #### [facility] ([id number]) [address] [address] Creatinine [Mass/Vol] 1.04 mg/dL High 0.40-1.00 [facility] Comment on above: Result Comment: METH OD TRACEABLE TO IDMS STANDARD Performed By: #### C BCA, BMP #### [facility] ([id number]) [address] [address] GFR/1.73 sq M.predicted among non-blacks MDRD (S/P/Bld) [Vol rate/Area] 60 mL/min/{1.73_m2} Normal >59 [facility] Comment on above: Result Comment: Reported eGFR is based on the CKD-EPI 2020 equation that does not use a race coefficient. Performed By: #### C BCA, BMP #### [facility] ([id number]) [address] [address] Glucose [Mass/Vol] 389 mg/dL High 65-99 [facility] Comment on above: Performed By: #### C BCA, BMP #### [facility] ([id number]) [address] [address] Potassium [Moles/Vol] 4.1 mmol/L Normal 3.5-5.0 [facility] Comment on above: Performed By: #### C BCA, BMP #### [facility] ([id number]) [address] [address] Sodium [Moles/Vol] 138 mmol/L Normal 134-146 [facility] Comment on above: Performed By: #### C BCA, BMP #### [facility] ([id number]) [address] [address] Urea nitrogen [Mass/Vol] 10 mg/dL Normal 5-27 [facility] Comment on above: Performed By: #### C TITUS, RIMMA #### [facility] ([id number]) [address] [place] [address] Basic Metabolic Panelon 04-0 Anion gap [Moles/Vol] 9 mmol/L 5 - 15 mmol/L [facility] Calcium [Mass/Vol] 8.8 mg/dL 8.5 - 10. 5 mg/dL [facility] Chloride [Moles/Vol] 103 mmol/L 98 - 10 9 mmol/L [facility] CO2 [Moles/Vol] 26 mmol/L 22 - 32 mmol/L [facility] Creatinine [Mass/Vol] 1.04 mg/dL High 0.40 - 1.00 mg/dL [facility] Comment on above: METHOD TRACEABLE TO [facility] STANDARD eGFR (CKD-EPI)non-race dependent 60 - PINF [facility] Comment on above: Reported eGFR is based on the CKD-EPI 2020 equation that does not use a race coefficient. Glucose [Mass/Vol] 389 mg/dL High 65 - 99 mg/dL [facility] Interpretation and review of laboratory results Abnormal [facility] Potassium [Moles/Vol] 4.1 mmol/L 3.5 - 5.0 mmol/L [facility] Sodium [Moles/Vol] 138 mmol/L 134 - 146 mmol/L [facility] Urea nitrogen [Mass/Vol] 10 mg/dL 5 - 27 mg/dL [facility] CBC AND AUTO DIFFon 08-20-19 ABSOLUTE BASOPHIL 0.1 X10E9/L Normal 0.0-0.2 [facility] Comment on above: Performed By: #### Elva QURESHI, RIMMA #### [facility] ([id number]) [address] [place] [address] ABSOLUTE NEUTROPHIL 5.0 X10E9/L Normal 1.5-6.6 [facility] Comment on above: Performed By: #### C TITUS, BMP #### [facility] ([id number]) [address], [address] [place] [address] Basophils/100 WBC (Bld) 1.2 % Normal [facility] Comment on above: Performed By: #### C BCA, BMP #### [facility] ([id number]) [address], [address] [place] [address] Eosinophils (Bld) [#/Vol] 0.4 10*3/uL Normal 0.0-0.4 [facility] Comment on above: Performed By: #### C TITUS, BMP #### [facility] ([id number]) [address], [address] [place] [address] Eosinophils/100 WBC (Bld) 4.9 % Normal [facility] Comment on above: Performed By: #### C TITUS, BMP #### [facility] ([id number]) [address], [address] [place] [address] Erythrocyte distribution width (RBC) [Ratio] 15.8 % High 11.5-15.0 [facility] Comment on above: Performed By: #### C TITUS, BMP #### [facility] ([id number]) [address], [address] [place] [address] Hematocrit (Bld) [Volume fraction] 34.3 % Low 35-47 [facility] Comment on above: Performed By: #### C BCA, BMP #### [facility] ([id number]) [address], [address] [place] [address] Hemoglobin (Bld) [Mass/Vol] 11.6 g/dL Low 11.7-15.5 [facility] Comment on above: Performed By: #### C BCA, BMP #### [facility] ([id number]) [address], [address] [place] [address] Lymphocytes (Bld) [#/Vol] 1.5 10*3/uL Normal 1.0-3.5 [facility] Comment on above: Performed By: #### C TITUS, BMP #### [facility] ([id number]) [address], [address] [place] [address] Lymphocytes/100 WBC (Bld) 20.1 % Normal [facility] Comment on above: Performed By: #### C BCA, BMP #### [facility] ([id number]) [address], [address] [place] [address] MCH (RBC) [Entitic mass] 27.3 pg Normal 27-34 [facility] Comment on above: Performed By: #### C TITUS, BMP #### [facility] ([id number]) [address], [address] [place] [address] MCHC (RBC) [Mass/Vol] 33.8 g/dL Normal 32-36 [facility] Comment on above: Performed By: #### C BCA, BMP #### [facility] ([id number]) [address], [address] [place] [address] MCV (RBC) [Entitic vol] 81 fL Normal 80-100 [facility] Comment on above: Performed By: #### C BCA, BMP #### [facility] ([id number]) [address], [address] [place] [address] Monocytes (Bld) [#/Vol] 0.5 10*3/uL Normal 0-0.9 [facility] Comment on above: Performed By: #### C BCA, BMP #### [facility] ([id number]) [address] [place] [address] Monocytes/100 WBC (Bld) 7.3 % Normal [facility] Comment on above: Performed By: #### C BCA, BMP #### [facility] ([id number]) [address], [address] [address] Neutrophils/100 WBC (Bld) 66.5 % Normal [facility] Comment on above: Performed By: #### Elva QURESHI, BMP #### [facility] ([id number]) [address] [address] Platelet mean volume (Bld) [Entitic vol] 7.7 fL Normal 7-12 [facility] Comment on above: Performed By: #### Elva QURESHI, BMP #### [facility] ([id number]) [address] [address] Platelets (Bld) [#/Vol] 405 10*3/uL Normal 150-450 [facility] Comment on above: Performed By: #### Elva QURESHI, BMP #### [facility] ([id number]) [address] [address] RBC COUNT 4.25 X10E12/L Normal 3.80-5.20 [facility] Comment on above: Performed By: #### Elva QURESHI, BMP #### [facility] ([id number]) [address] [address] WBC (Bld) [#/Vol] 7.5 10*3/uL Normal 4.0-11.0 [facility] Comment on above: Performed By: #### Elva QURESHI, BMP #### [facility] ([id number]) [address] [address] CBC auto differentialon 04-0 Basophils (Bld) [#/Vol] 0.1 10*3/uL [facility] Basophils/100 WBC (Bld) 1.2 % [facility] Eosinophils (Bld) [#/Vol] 0.4 10*3/uL [facility] Eosinophils/100 WBC (Bld) 4.9 % [facility] Erythrocyte distribution width (RBC) [Ratio] 15.8 % High 11.5 - 15.0 % [facility] Hematocrit (Bld) [Volume fraction] 34.3 % Low 35 - 47 % [facility] Hemoglobin (Bld) [Mass/Vol] 11.6 g/dL Low 11.7 - 15.5 g/dL [facility] Interpretation and review of laboratory results Abnormal [facility] Lymphocytes (Bld) [#/Vol] 1.5 10*3/uL [facility] Lymphocytes/100 WBC (Bld) 20.1 % [facility] MCH (RBC) [Entitic mass] 27.3 pg 27 - 34 pg [facility] MCHC (RBC) [Mass/Vol] 33.8 g/dL 32 - 3 6 g/dL [facility] MCV (RBC) [Entitic vol] 81 fL 80 - 100 fL [facility] Monocytes (Bld) [#/Vol] 0.5 10*3/uL [facility] Monocytes/100 WBC (Bld) 7.3 % [facility] Neutrophils (Bld) [#/Vol] 5.0 10*3/uL [facility] Neutrophils/100 WBC (Bld) 66.5 % [facility] Platelet mean volume (Bld) [Entitic vol] 7.7 fL 7 - 12 fL [facility] Platelets (Bld) [#/Vol] 405 10*3/uL [facility] RBC (Bld) [#/Vol] 4.25 10*6/uL [facility] WBC corrected for nucl RBC Auto (Bld) [#/Vol] 7.5 [facility] Influenza virus B Ag [Presen ce] in Upper respiratory specimen by Rapid immunoassayon 07-26-2023 FLUBV Ag IA.rapid Ql (Nph) Negative [facility] No Panel Informationon 07-25 Influenza Type A (Rapid) Negative [facility] POC SARS CoV-2 Antigen Negative [facility] CT Abdomen and Pelvis W cont rast Waqas 07-16-2023 IMPRESSION: 1. Large rectal mass with numerous enlarged perirectal nodes, suspicious for ami metastatic disease. 2. No additional findings to suggest distant abdominal or pelvic metastatic disease. 3. Linear bandlike hypodensity within the spleen, suggestive of a splenic infarct. 4. 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 Transcribe Date/Time: Jul 16 2023 12:53P Dictated by: BRAYDEN MILLS MD This examination was interpreted and the report reviewed and electronically signed by: BRAYDEN MILLS MD on Jul 16 2023 1:11PM EST Thank you for allowing us to participate in the care of your patient. Should there be any questions regarding this interpretation, please call [phone]. If you are unable to reach us at the number above, please feel free to contact [facility] at [phone]. DIVISION OF RADIOLOGY * * *Final Report* * * DATE OF EXAM: Jul 16 2023 9:31AM [facility] 0530 - CT ABD/PEL W IVCON / PROCEDURE REASON: multiple diagnoses * * * * Physician Interpretation * * * * RESULT: EXAMINATION: CT ABDOMEN AND PELVIS WITH IV CONTRAST CLINICAL HISTORY: History of rectal cancer. TECHNIQUE: CT of the abdomen and pelvis was performed using standard technique, scanning from just above the dome of the diaphragm to the symphysis pubis. MQ: CTAP_3 Contrast: IV: 150 ml of Omnipaque 300 Oral: 500 ml of Omni 240 10-25ml diluted with water CT Radiation dose: Integrated Dose-length product (DLP) for this visit = 1302 mGy*cm. CT Dose Reduction Employed: mAs-kVp adjusted based on patient size-age COMPARISON: CT performed 05/27/2018 RESULT: Liver: The liver is mildly decreased in attenuation, compatible with hepatic steatosis. No gross hepatic mass is visualized. Biliary: The gallbladder is surgically absent. No biliary ductal dilation is seen. 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 No focal splenic mass is seen. No splenomegaly. Pancreas: There is an 8mm rounded hypodensity in the pancreatic tail, likely representing a sidebranch intraductal papillary mucinous neoplasm (3:45). No new pancreatic mass is seen. No hepatic ductal dilation is noted. Adrenals: No mass. Kidneys: The kidneys symmetrically enhance. No renal calculus or hydronephrosis is seen. Bilateral renal cysts are noted, the largest noted on the left measuring up to 2.3 cm. GI tract: The stomach and small bowel are unremarkable. There is no evidence of small bowel obstruction or wall thickening. There is a 5.9 x 5.7 cm mass within the rectum (3:137). No definite large bowel obstruction is noted. There is scattered colonic diverticulosis without evidence of diverticulitis. Lymph nodes: Multiple enlarged perirectal nodes are visualized, the largest measuring up to 9 mm in short axis (3:132). Subcentimeter retroperitoneal nodes are seen measuring up to 6 mm in short axis. There is a left iliac node (3:107) measuring up to 7 mm in short axis. Mesentery/Peritoneum: No ascites or mass. Retroperitoneum: No mass. Vasculature: - Abdominal aorta and iliac arteries: Atherosclerotic calcifications without aneurysm. - Celiac and SMA: Patent without stenosis. - Portal venous system (SMV, splenic vein, portal vein and branches): Patent. - Hepatic veins: Patent. Pelvis: The urinary bladder is incompletely distended. Right ovarian cystic structures are seen measuring up to 2.8 cm. Rectal mass and adenopathy as described above. No additional pelvic mass is visualized. Bones/Soft Tissues: Degenerative and postsurgical changes are seen in the lumbar spine. No destructive osseous lesions are seen. Superficial soft tissues are unremarkable. Lower thorax: A chest CT performed will be reported separately. [employer] Shop Supervisor (topogram) images: No additional findings. DIVISION OF RADIOLOGY Provider, [facility] - 07/16/2023 * * *Final Report* * * DATE OF EXAM: Jul 16 2023 9:31AM [facility] 0530 - CT ABD/PEL W IVCON / PROCEDURE REASON: multiple diagnoses * * * * Physician Interpretation * * * * RESULT: EXAMINATION: CT ABDOMEN AND PELVIS WITH IV CONTRAST CLINICAL HISTORY: History of rectal cancer. TECHNIQUE: CT of the abdomen and pelvis was performed using standard technique, scanning from just above the dome of the diaphragm to the symphysis pubis. MQ: CTAP_3 Contrast: IV: 150 ml of Omnipaque 300 Oral: 500 ml of Omni 240 10-25ml diluted with water CT Radiation dose: Integrated Dose-length product (DLP) for this visit = 1302 mGy*cm. CT Dose Reduction Employed: mAs-kVp adjusted based on patient size-age COMPARISON: CT performed 05/27/2018 RESULT: Liver: The liver is mildly decreased in attenuation, compatible with hepatic steatosis. No gross hepatic mass is visualized. Biliary: The gallbladder is surgically absent. No biliary ductal dilation is seen. 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 No focal splenic mass is seen. No splenomegaly. Pancreas: There is an 8mm rounded hypodensity in the pancreatic tail, likely representing a sidebranch intraductal papillary mucinous neoplasm (3:45). No new pancreatic mass is seen. No hepatic ductal dilation is noted. Adrenals: No mass. Kidneys: The kidneys symmetrically enhance. No renal calculus or hydronephrosis is seen. Bilateral renal cysts are noted, the largest noted on the left measuring up to 2.3 cm. GI tract: The stomach and small bowel are unremarkable. There is no evidence of small bowel obstruction or wall thickening. There is a 5.9 x 5.7 cm mass within the rectum (3:137). No definite large bowel obstruction is noted. There is scattered colonic diverticulosis without evidence of diverticulitis. Lymph nodes: Multiple enlarged perirectal nodes are visualized, the largest measuring up to 9 mm in short axis (3:132). Subcentimeter retroperitoneal nodes are seen measuring up to 6 mm in short axis. There is a left iliac node (3:107) measuring up to 7 mm in short axis. Mesentery/Peritoneum: No ascites or mass. Retroperitoneum: No mass. Vasculature: - Abdominal aorta and iliac arteries: Atherosclerotic calcifications without aneurysm. - Celiac and SMA: Patent without stenosis. - Portal venous system (SMV, splenic vein, portal vein and branches): Patent. - Hepatic veins: Patent. Pelvis: The urinary bladder is incompletely distended. Right ovarian cystic structures are seen measuring up to 2.8 cm. Rectal mass and adenopathy as described above. No additional pelvic mass is visualized. Bones/Soft Tissues: Degenerative and postsurgical changes are seen in the lumbar spine. No destructive osseous lesions are seen. Superficial soft tissues are unremarkable. Lower thorax: A chest CT performed will be reported separately. [employer] Shop Supervisor (topogram) images: No additional findings. IMPRESSION IMPRESSION: 1. Large rectal mass with numerous enlarged perirectal nodes, suspicious for ami metastatic disease. 2. No additional findings to suggest distant abdominal or pelvic metastatic disease. 3. Linear bandlike hypodensity within the spleen, suggestive of a splenic infarct. 4. 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 Transcribe Date/Time: Jul 16 2023 12:53P Dictated by: BRAYDEN MILLS MD This examination was interpreted and the report reviewed and electronically signed by: BRAYDEN MILLS MD on Jul 16 2023 1:11PM EST Thank you for allowing us to participate in the care of your patient. Should there be any questions regarding this interpretation, please call [phone]. If you are unable to reach us at the number above, please feel free to contact [facility] eRadiology at [phone]. [facility] CT Chest W contrast Waqas IMPRESSION: 1. Left-sided nodular opacities measuring up to 5 mm. Metastatic disease is not excluded. Recommend continued attention to these areas on follow-up exams. 2. No evidence of intrathoracic lymphadenopathy. Transcribe Date/Time: Jul 16 2023 11:49A Dictated by: BRAYDEN MILLS MD This examination was interpreted and the report reviewed and electronically signed by: BRAYDEN MILLS MD on Jul 16 2023 12:03PM EST Thank you for allowing us to participate in the care of your patient. Should there be any questions regarding this interpretation, please call [phone]. If you are unable to reach us at the number above, please feel free to contact [facility] eRadiology at [phone]. DIVISION OF RADIOLOGY * * *Final Report* * * DATE OF EXAM: Jul 16 2023 9:31AM [facility] 0539 - CT CHEST W IVCON / PROCEDURE REASON: multiple diagnoses * * * * Physician Interpretation * * * * RESULT: EXAMINATION: CHEST CT WITH CONTRAST CLINICAL HISTORY: History of rectal cancer. Technique: Spiral CT acquisition of the chest from the thoracic inlet to the upper abdomen following IV contrast. MQ: CTCW_6 Contrast: 150 mL Omnipaque [address] Radiation dose: Integrated Dose-length product (DLP) for this visit = 1302 mGy*cm CT Dose Reduction Employed: mAs-kVp adjusted based on patient size-age Comparison: None available. RESULT: Limitations: None. Lines, tubes, and devices: None. Lung parenchyma and airways: There is mild bibasal atelectasis. No lobar consolidation is noted. There is a 5 mm nodule in the left upper lobe (4:41). An additional 5 mm nodule is seen in the lingula (4:120). The central airways are widely patent. Pleural space: No pleural effusion. No pleural thickening. Lower neck, lymph nodes, and mediastinum: The imaged thyroid gland is normal. No lymphadenopathy in the supraclavicular, axillary, mediastinal, or hilar regions. Heart, pericardium, and thoracic vessels: The thoracic aorta and main pulmonary artery are normal in caliber. The cardiac chambers are normal in size. No coronary artery atherosclerotic calcifications are noted, although the study is not optimized for coronary assessment. No pericardial effusion or thickening. Bones and soft tissues: Degenerative changes are noted in the thoracic spine. Superficial soft tissues are unremarkable. Upper abdomen: A dedicated CT of the abdomen and pelvis was performed concurrently and is reported separately. [employer] Shop Supervisor (topogram) images: No additional findings. DIVISION OF RADIOLOGY Provider, [facility] - 07/16/2023 * * *Final Report* * * DATE OF EXAM: Jul 16 2023 9:31AM [facility] 0539 - CT CHEST W IVCON / PROCEDURE REASON: multiple diagnoses * * * * Physician Interpretation * * * * RESULT: EXAMINATION: CHEST CT WITH CONTRAST CLINICAL HISTORY: History of rectal cancer. Technique: Spiral CT acquisition of the chest from the thoracic inlet to the upper abdomen following IV contrast. MQ: CTCW_6 Contrast: 150 mL Omnipaque [address] Radiation dose: Integrated Dose-length product (DLP) for this visit = 1302 mGy*cm CT Dose Reduction Employed: mAs-kVp adjusted based on patient size-age Comparison: None available. RESULT: Limitations: None. Lines, tubes, and devices: None. Lung parenchyma and airways: There is mild bibasal atelectasis. No lobar consolidation is noted. There is a 5 mm nodule in the left upper lobe (4:41). An additional 5 mm nodule is seen in the lingula (4:120). The central airways are widely patent. Pleural space: No pleural effusion. No pleural thickening. Lower neck, lymph nodes, and mediastinum: The imaged thyroid gland is normal. No lymphadenopathy in the supraclavicular, axillary, mediastinal, or hilar regions. Heart, pericardium, and thoracic vessels: The thoracic aorta and main pulmonary artery are normal in caliber. The cardiac chambers are normal in size. No coronary artery atherosclerotic calcifications are noted, although the study is not optimized for coronary assessment. No pericardial effusion or thickening. Bones and soft tissues: Degenerative changes are noted in the thoracic spine. Superficial soft tissues are unremarkable. Upper abdomen: A dedicated CT of the abdomen and pelvis was performed concurrently and is reported separately. [employer] Shop Supervisor (topogram) images: No additional findings. IMPRESSION IMPRESSION: 1. Left-sided nodular opacities measuring up to 5 mm. Metastatic disease is not excluded. Recommend continued attention to these areas on follow-up exams. 2. No evidence of intrathoracic lymphadenopathy. Transcribe Date/Time: Jul 16 2023 11:49A Dictated by: BRAYDEN MILLS MD This examination was interpreted and the report reviewed and electronically signed by: BRAYDEN MILLS MD on Jul 16 2023 12:03PM EST Thank you for allowing us to participate in the care of your patient. Should there be any questions regarding this interpretation, please call [phone]. If you are unable to reach us at the number above, please feel free to contact [facility] eRadiology at [phone]. [facility] CT Chest W contrast IVOrdere d By: [facility] Provider on 07-16-2023 [facility] No Panel Informationon 07-16 Radiology Study observation (narrative) Risa edwards [facility] FERRITIN BLDon 07-12-2023 Ferritin [Mass/Vol] 42.8 ng/mL 14.7 - 205.1 ng/mL [facility] Iron and Iron binding capaci ty panelon 07-12-2023 Iron [Mass/Vol] 51 ug/dL 41 - 186 ug/dL [facility] Iron binding capacity [Mass/Vol] 277 ug/dL 232 - 386 ug/dL [facility] Iron/TIBC [Molar ratio] 18.4 % 15.0 - 57.0 % [facility] CBC W Auto Differential pane l (Bld)on 07-11-2023 Basophils (Bld) [#/Vol] 0.09 10*3/uL <0.11 k/uL [facility] Basophils/100 WBC (Bld) 0.9 % [facility] Differential cell count method Nom (Bld) Auto [facility] Eosinophils (Bld) [#/Vol] 0.31 10*3/uL <0.46 k/uL [facility] Eosinophils/100 WBC (Bld) 3.1 % [facility] Erythrocyte distribution width (RBC) [Ratio] 13.3 % 11.5 - 15.0 % [facility] Hematocrit (Bld) [Volume fraction] 38.3 % 36.0 - 46.0 % [facility] Hemoglobin (Bld) [Mass/Vol] 12.4 g/dL 11.5 - 15.5 g/dL [facility] Immature granulocytes (Bld) [#/Vol] 0.03 10*3/uL <0.10 k/uL [facility] Immature granulocytes/100 WBC (Bld) 0.3 % [facility] Lymphocytes (Bld) [#/Vol] 2.10 10*3/uL 1.00 - 4.00 k/uL [facility] Lymphocytes/100 WBC (Bld) 20.9 % [facility] MCH (RBC) [Entitic mass] 26.0 pg 26.0 - 34.0 pg [facility] MCHC (RBC) [Mass/Vol] 32.4 g/dL 30.5 - 36.0 g/dL [facility] MCV (RBC) [Entitic vol] 80.3 fL 80.0 - 100.0 fL [facility] Monocytes (Bld) [#/Vol] 0.78 10*3/uL <0.87 k/uL [facility] Monocytes/100 WBC (Bld) 7.8 % [facility] Neutrophils (Bld) [#/Vol] 6.73 10*3/uL 1.45 - 7.50 k/uL [facility] Neutrophils/100 WBC (Bld) 67.0 % [facility] Nucleated RBC (Bld) [#/Vol] <0.01 k/uL [facility] Nucleated RBC/100 WBC (Bld) [Ratio] 0.0 /100 WBC [facility] Platelet mean volume (Bld) [Entitic vol] 8.5 fL Low 9.0 - 12.7 fL [facility] Platelets (Bld) [#/Vol] 469 10*3/uL High 150 - 400 k/uL [facility] RBC (Bld) [#/Vol] 4.77 10*6/uL 3.90 - 5.2 0 m/uL [facility] WBC (Bld) [#/Vol] 10.04 10*3/uL 3.70 - 11.00 k/uL [facility] Comprehensive metabolic 2000 panelon 07-11-2023 Albumin [Mass/Vol] 3.6 g/dL Low 3.9 - 4.9 g/dL [facility] ALP [Catalytic activity/Vol] 105 U/L 34 - 123 U/L [facility] ALT [Catalytic activity/Vol] 10 U/L 7 - 38 U/L [facility] Anion gap [Moles/Vol] 12 mmol/L 9 - 18 mmol/L [facility] AST [Catalytic activity/Vol] 14 U/L 13 - 35 U/L [facility] Bilirubin [Mass/Vol] 0.8 mg/dL 0.2 - 1 .3 mg/dL [facility] Calcium [Mass/Vol] 9.3 mg/dL 8.5 - 10. 2 mg/dL [facility] Chloride [Moles/Vol] 102 mmol/L 97 - 10 5 mmol/L [facility] CO2 [Moles/Vol] 28 mmol/L 22 - 30 mmol/L [facility] Creatinine [Mass/Vol] 1.11 mg/dL High 0.58 - 0.96 mg/dL [facility] Estimated Glomerular Filtration Rate 55 mL/min/1.73m Low >=60 mL/min/1.73 m [facility] Glucose [Mass/Vol] 206 mg/dL High 74 - 99 mg/dL [facility] Potassium [Moles/Vol] 3.0 mmol/L Low 3.7 - 5.1 mmol/L [facility] Protein [Mass/Vol] 6.7 g/dL 6.3 - 8.0 g/dL [facility] Sodium [Moles/Vol] 142 mmol/L 136 - 144 mmol/L [facility] Urea nitrogen [Mass/Vol] 8 mg/dL 7 - 21 mg/dL [facility] Carcinoembryonic Ag [Mass/Vo l]on 06-14-2023 CEA 4.5 ng/mL High 0.0-3.0 [facility] Comment on above: Result Comment: 0.0-3.0 ng/mL FOR NON SMOKERS 0.0-5.0 ng/mL FOR SMOKERS The method used for this test is Meseret Carlton DXI chemiluminescent immunoassay. Values obtained by different assay methods cannot be used interchangeably. Performed By: #### 2 039-6 #### [facility] ([id number]) [address], [address] [place] [address] COMPREHENSIVE METABOLIC PANE Felix 06-12-2023 Albumin [Mass/Vol] 3.5 g/dL Normal 3.2-5.3 [facility] Comment on above: Performed By: #### Elva PIERSON [id number] #### [facility] ([id number]) [address], [address] [place] [address] ALP [Catalytic activity/Vol] 95 U/L Normal 39-130 [facility] Comment on above: Performed By: #### Elva PIERSON [id number] #### [facility] ([id number]) [address] [place] [address] ALT [Catalytic activity/Vol] 10 U/L Normal 0-31 [facility] Comment on above: Performed By: #### Elva PIERSON 64018-0 #### [facility] ([id number]) [address], [address] [place] [address] Anion gap [Moles/Vol] 11 mmol/L Normal 5-15 [facility] Comment on above: Performed By: #### Elva PIERSON [id number] #### [facility] ([id number]) [address], [address] [place] [address] AST [Catalytic activity/Vol] 12 U/L Normal 0-41 [facility] Comment on above: Performed By: #### Elva PIERSON 20118-1 #### [facility] ([id number]) [address], [address] [place] [address] Bilirubin [Mass/Vol] 1.0 mg/dL Normal 0.3-1.2 [facility] Comment on above: Performed By: #### Elva PIERSON, 20620-7 #### [facility] ([id number]) [address], [address] [place] [address] Calcium [Mass/Vol] 8.5 mg/dL Normal 8.5-10.5 [facility] Comment on above: Performed By: #### Elva PIERSON, [id number] #### [facility] ([id number]) [address], [address] [place] [address] Chloride [Moles/Vol] 104 mmol/L Normal 98-109 [facility] Comment on above: Performed By: #### Elva PIERSON, 79881-6 #### [facility] ([id number]) [address], [address] [place] [address] CO2 [Moles/Vol] 28 mmol/L Normal 22-32 [facility] Comment on above: Performed By: #### Elva PIERSON, 62601-0 #### [facility] ([id number]) [address], [address] [place] [address] Creatinine [Mass/Vol] 1.06 mg/dL High 0.40-1.00 [facility] Comment on above: Result Comment: METH OD TRACEABLE TO IDMS STANDARD Performed By: #### Elva PIERSON, 29969-3 #### [facility] ([id number]) [address], [address] [place] [address] GFR/1.73 sq M.predicted among non-blacks MDRD (S/P/Bld) [Vol rate/Area] 58 mL/min/{1.73_m2} Low >59 [facility] Comment on above: Result Comment: Reported eGFR is based on the CKD-EPI 2020 equation that does not use a race coefficient. Performed By: #### C DANGELO, 61825-8 #### [facility] ([id number]) [address], [address] [place] [address] Glucose [Mass/Vol] 145 mg/dL High 65-99 [facility] Comment on above: Performed By: #### Elva PIERSON, 71222-8 #### [facility] ([id number]) [address], [address] [place] [address] Potassium [Moles/Vol] 2.9 mmol/L Low 3.5-5.0 [facility] Comment on above: Performed By: #### Elva PIERSON, 89680-1 #### [facility] ([id number]) [address], [address] [place] [address] Protein [Mass/Vol] 6.4 g/dL Normal 6.0-8.0 [facility] Comment on above: Performed By: #### Elva PIERSON, 98417-5 #### [facility] ([id number]) [address], [address] [place] [address] Sodium [Moles/Vol] 143 mmol/L Normal 134-146 [facility] Comment on above: Performed By: #### Elva PIERSON, 19886-4 #### [facility] ([id number]) [address], [address] [place] [address] Urea nitrogen [Mass/Vol] 7 mg/dL Normal 5-27 [facility] Comment on above: Performed By: #### Elva PIERSON, 78295-1 #### [facility] ([id number]) [address], [address] [place] [address] Comprehensive metabolic pane felix 06-12-2023 Albumin [Mass/Vol] 3.5 g/dL 3.2 - 5.3 g/dL [facility] ALP [Catalytic activity/Vol] 95 U/L 39 - 130 U/L [facility] ALT No additional P-5'-P [Catalytic activity/Vol] 10 U/L 0 - 31 U/L [facility] Anion gap [Moles/Vol] 11 mmol/L 5 - 15 mmol/L [facility] AST [Catalytic activity/Vol] 12 U/L 0 - 41 U/L [facility] Bilirubin [Mass/Vol] 1.0 mg/dL 0.3 - 1 .2 mg/dL [facility] Calcium [Mass/Vol] 8.5 mg/dL 8.5 - 10. 5 mg/dL [facility] Chloride [Moles/Vol] 104 mmol/L 98 - 10 9 mmol/L [facility] CO2 [Moles/Vol] 28 mmol/L 22 - 32 mmol/L [facility] Creatinine [Mass/Vol] 1.06 mg/dL High 0.40 - 1.00 mg/dL [facility] Comment on above: METHOD TRACEABLE TO [facility] STANDARD eGFR (CKD-EPI)non-race dependent 58 Low - PINF [facility] Comment on above: Reported eGFR is based on the CKD-EPI 2020 equation that does not use a race coefficient. Glucose [Mass/Vol] 145 mg/dL High 65 - 99 mg/dL [facility] Potassium [Moles/Vol] 2.9 mmol/L Low 3.5 - 5.0 mmol/L [facility] Protein [Mass/Vol] 6.4 g/dL 6.0 - 8.0 g/dL [facility] Sodium [Moles/Vol] 143 mmol/L 134 -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 naviculocuneiform joint osteoarthritis. There is mild left first metatarsophalangeal joint osteoarthritis. There is mild left first tarsometatarsal joint osteoarthritis. The flexor tendons including the posterior tibialis, flexor digitorum longus, and flexor hallucis longus are normal and without tenosynovitis, tendinopathy, or tear. The extensor tendons including the anterior tibialis, extensor hallucis longus, and extensor digitorum longus are also normal without tenosynovitis, tendinopathy, or tear. The peroneus brevis and peroneus longus tendons are normal. The peroneus brevis attaches normally to the base of the fifth metatarsal. The distal left Achilles tendon is mildly thickened, possibly representing mild tendinopathy. Note is made of enthesopathy at the Achilles tendon attachment onto the left calcaneus, similar to that seen on patient's prior radiograph dated 02/02/2021. The sinus tarsi is normal. There is a small left plantar calcaneal spur with mild thickening of the plantar fascia, but without fascial or perifascial edema. IMPRESSION: 1. No acute displaced fracture or dislocation of the left foot. Specifically, there is no Lisfranc subluxation or dislocation. The left Lisfranc ligament is intact. 2. 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 3. Mild thickening of the distal left Achilles tendon that may represent mild tendinopathy. Note is made of enthesopathy at the Achilles tendon attachment onto the left calcaneus similar to that seen on prior radiographs. 4. Left plantar calcaneal spur with mild chronic plantar fasciitis. Electronically authenticated by: CHASITY SANTOYO Date: 2021-03-09 13:24 Normal [facility] Vital Signs Date Time Vital Sign Value Performing Clinician Facility 11-17-2024 13:31-0400 Body height 172 cm Blu Tellez MD Work Phone: [facility] 11-17-2024 13:31-0400 Body mass index (BMI) [Ratio] 33.23 kg/m2 Blu Tellez MD Work Phone: [facility] 11-17-2024 13:31-0400 Body temperature 97.81 [degF] Blu Tellez MD Work Phone: [facility] 11-17-2024 13:31-0400 Body weight 98.3 kg Blu Tellez MD Work Phone: [facility] 11-17-2024 13:31-0400 Diastolic blood pressure 83 mm[Hg] Blu Tellez MD Work Phone: [facility] 11-17-2024 13:31-0400 Heart rate 94 /min Blu Tellez MD Work Phone: [facility] 11-17-2024 13:31-0400 Respiratory rate 16 /min Blu Tellez MD Work Phone: [facility] 11-17-2024 13:31-0400 SaO2% (BldA) [Mass fraction] 93 % Blu Tellez MD Work Phone: [facility] 11-17-2024 13:31-0400 Systolic blood pressure 153 mm[Hg] Blu Tellez MD Work Phone: [facility] 11-05-2024 13:08-0400 Body height 170.2 cm Keaton Hu DO Work Phone: [facility] 11-05-2024 13:08-0400 Body mass index (BMI) [Ratio] 33.7 kg/m2 Keaton Hu DO Work Phone: [facility] 11-05-2024 13:08-0400 Body temperature 97.9 [degF] Keaton Yuhas DO Work Phone: [facility] 11-05-2024 13:08-0400 Body weight 97.61 kg Keaton Singhhas DO Work Phone: [facility] 11-05-2024 13:08-0400 Diastolic blood pressure 60 mm[Hg] Keaton Singhhas DO Work Phone: [facility] 11-05-2024 13:08-0400 Heart rate 81 /min Keaton Singhhas DO Work Phone: [facility] 11-05-2024 13:08-0400 Respiratory rate 20 /min Keaton Singhhas DO Work Phone: [facility] 11-05-2024 13:08-0400 SaO2% (BldA) [Mass fraction] 96 % Keaton Singhhas DO Work Phone: [facility] 11-05-2024 13:08-0400 Systolic blood pressure 140 mm[Hg] Keaton Singhhas DO Work Phone: [facility] 10-30-2024 14:39-0400 Body height 170.2 cm Keaton Singhhas DO Work Phone: [facility] 10-30-2024 14:39-0400 Body mass index (BMI) [Ratio] 34.3 kg/m2 Keaton Singhhas DO Work Phone: [facility] 10-30-2024 14:39-0400 Body weight 99.34 kg Keaton Singhhas DO Work Phone: [facility] 10-30-2024 14:39-0400 Diastolic blood pressure 82 mm[Hg] Keaton Yuhas DO Work Phone: [facility] 10-30-2024 14:39-0400 Systolic blood pressure 160 mm[Hg] Keaton Singhhas DO Work Phone: [facility] 08-14-2024 13:13-0400 Body height 172 cm Blu Tellez MD Work Phone: [facility] 08-14-2024 13:13-0400 Body mass index (BMI) [Ratio] 33.46 kg/m2 Blu Tellez MD Work Phone: [facility] 08-14-2024 13:13-0400 Body temperature 97.2 [degF] Blu Tellez MD Work Phone: [facility] 08-14-2024 13:13-0400 Body weight 99 kg Blu Tellez MD Work Phone: [facility] 08-14-2024 13:13-0400 Diastolic blood pressure 92 mm[Hg] Blu Tellez MD Work Phone: [facility] 08-14-2024 13:13-0400 Heart rate 96 /min Blu Tellez MD Work Phone: [facility] 08-14-2024 13:13-0400 Respiratory rate 16 /min Blu Tellez MD Work Phone: [facility] 08-14-2024 13:13-0400 SaO2% (BldA) [Mass fraction] 94 % Blu Tellez MD Work Phone: [facility] 08-14-2024 13:13-0400 Systolic blood pressure 165 mm[Hg] Blu Tellez MD Work Phone: [facility] 07-29-2024 14:30-0400 Diastolic blood pressure 69 mm[Hg] Evans Zurita MD Work Phone: [facility] 07-29-2024 14:30-0400 Systolic blood pressure 176 mm[Hg] Evans Zurita MD Work Phone: [facility] 07-29-2024 14:15-0400 Heart rate 76 /min Evans Zurita MD Work Phone: [facility] 07-29-2024 14:15-0400 Respiratory rate 18 /min Evans Zurita MD Work Phone: [facility] 07-29-2024 14:15-0400 SaO2% (BldA) [Mass fraction] 100 % Evans Zurita MD Work Phone: [facility] 07-29-2024 13:19-0400 Body temperature 97.7 [degF] Evans Zurita MD Work Phone: [facility] 07-08-2024 12:51-0500 Body height 172 cm Blu Tellez MD Work Phone: [facility] 07-08-2024 12:51-0500 Body mass index (BMI) [Ratio] 33.23 kg/m2 Blu Tellez MD Work Phone: [facility] 07-08-2024 12:51-0500 Body temperature 97.5 [degF] Blu Tellez MD Work Phone: [facility] 07-08-2024 12:51-0500 Body weight 98.3 kg Blu Tellez MD Work Phone: [facility] 07-08-2024 12:51-0500 Diastolic blood pressure 81 mm[Hg] Blu Tellez MD Work Phone: [facility] 07-08-2024 12:51-0500 Heart rate 90 /min Blu Tellez MD Work Phone: [facility] 07-08-2024 12:51-0500 Respiratory rate 16 /min Blu Tellez MD Work Phone: [facility] 07-08-2024 12:51-0500 SaO2% (BldA) [Mass fraction] 96 % Blu Tellez MD Work Phone: [facility] 07-08-2024 12:51-0500 Systolic blood pressure 154 mm[Hg] Blu Tellez MD Work Phone: [facility] 06-04-2024 12:26-0500 Body height 172 cm Jessica Winston PA-C Work Phone: [facility] 06-04-2024 12:26-0500 Body mass index (BMI) [Ratio] 32.21 kg/m2 Jessica Winston PA-C Work Phone: [facility] 06-04-2024 12:26-0500 Body temperature 97.3 [degF] Jessica Winston PA-C Work Phone: [facility] 06-04-2024 12:26-0500 Body weight 95.3 kg Jessica Winston PA-C Work Phone: [facility] 06-04-2024 12:26-0500 Diastolic blood pressure 78 mm[Hg] Jessica Winston PA-C Work Phone: [facility] 06-04-2024 12:26-0500 Heart rate 91 /min Jessica Winston PA-C Work Phone: [facility] 06-04-2024 12:26-0500 Respiratory rate 16 /min Jessica Winston PA-C Work Phone: [facility] 06-04-2024 12:26-0500 SaO2% (BldA) [Mass fraction] 96 % Jessica Winston PA-C Work Phone: [facility] 06-04-2024 12:26-0500 Systolic blood pressure 141 mm[Hg] Jessica Winston PA-C Work Phone: [facility] 05-16-2024 12:50-0500 Body mass index (BMI) [Ratio] 33.36 kg/m2 Mohsen Amara REEL SLITTER.SOLE SPLITTER Work Phone: [facility] 05-16-2024 12:50-0500 Body temperature 97.11 [degF] Mohsen Amara REEL SLITTER.SOLE SPLITTER Work Phone: [facility] 05-16-2024 12:50-0500 Body weight 98.7 kg Mohsen Amara REEL SLITTER.SOLE SPLITTER Work Phone: [facility] 05-16-2024 12:50-0500 Diastolic blood pressure 84 mm[Hg] Mohsen Amara REEL SLITTER.SOLE SPLITTER Work Phone: [facility] 05-16-2024 12:50-0500 Heart rate 93 /min Mohsen Amara REEL SLITTER.SOLE SPLITTER Work Phone: [facility] 05-16-2024 12:50-0500 Respiratory rate 18 /min Mohsen Amara REEL SLITTER.SOLE SPLITTER Work Phone: [facility] 05-16-2024 12:50-0500 SaO2% (BldA) [Mass fraction] 97 % Mohsen Amara REEL SLITTER.SOLE SPLITTER Work Phone: [facility] 05-16-2024 12:50-0500 Systolic blood pressure 164 mm[Hg] Mohsen Amara REEL SLITTER.SOLE SPLITTER Work Phone: [facility] 05-08-2024 15:15-0500 Diastolic blood pressure 90 mm[Hg] Keaton [facility] 05-08-2024 15:15-0500 Systolic blood pressure 120 mm[Hg] Keaton Hu [facility] 05-08-2024 14:47-0500 Body height 170.2 cm Keaton Smiths [facility] 05-08-2024 14:47-0500 Body mass index (BMI) [Ratio] 33.02 kg/m2 Keaton Smiths DO [facility] 05-08-2024 14:47-0500 Body temperature 97.81 [degF] Keaton Smiths [facility] 05-08-2024 14:47-0500 Body weight 95.62 kg Keaton Smiths DO [facility] 05-08-2024 14:47-0500 Heart rate 102 /min Keaton Jh BUNN Work Phone: [facility] 05-08-2024 14:47-0500 Respiratory rate 20 /min Keaton Hu DO Work Phone: [facility] 05-08-2024 14:47-0500 SaO2% (BldA) [Mass fraction] 96 % Keaton Hu DO Work Phone: [facility] 04-10-2024 13:00-0500 Diastolic blood pressure 94 mm[Hg] Margarette Hernandez APRN.SOLE SPLITTER Work Phone: [facility] Comment on above: recheck BP//patient states did not take BP medicine this morning. 04-10-2024 13:00-0500 Systolic blood pressure 183 mm[Hg] Margarette Hernandez APRN.SOLE SPLITTER Work Phone: [facility] Comment on above: recheck BP//patient states did not take BP medicine this morning. 04-10-2024 12:56-0500 Body height 172 cm Margarette Hernandez APRN.SOLE SPLITTER Work Phone: [facility] Comment on above: verified by 2 caregivers with shoes on 04-10-2024 12:56-0500 Body mass index (BMI) [Ratio] 31.77 kg/m2 Margarette Hernandez APRN.CNP Work Phone: [facility] 04-10-2024 12:56-0500 Body temperature 97.2 [degF] Margarette Hernandez APRN.SOLE SPLITTER Work Phone: [facility] 04-10-2024 12:56-0500 Body weight 94 kg Margarette Hernandez APRN.SOLE SPLITTER Work Phone: [facility] 04-10-2024 12:56-0500 Heart rate 94 /min Margarette Hernandez APRN.SOLE SPLITTER Work Phone: [facility] 04-10-2024 12:56-0500 Respiratory rate 18 /min Margarette Hernandez APRN.SOLE SPLITTER Work Phone: [facility] 04-10-2024 12:56-0500 SaO2% (BldA) [Mass fraction] 97 % Margarette Hernandez APRN.CNP Work Phone: [facility] 03-29-2024 10:46-0500 Body height 170.18 cm Keaton Smiths DO Work Phone: [facility] 03-29-2024 10:46-0500 Body mass index (BMI) [Ratio] 31.9 kg/m2 Keaton Marissahas DO Work Phone: [facility] 03-29-2024 10:46-0500 Body temperature 97.4 [degF] Keaton Smiths DO Work Phone: [facility] 03-29-2024 10:46-0500 Body weight 92.53 kg Keaton Singhhas DO Work Phone: [facility] 03-29-2024 10:46-0500 Diastolic blood pressure 94 mm[Hg] Keaton Singhhas DO Work Phone: [facility] 03-29-2024 10:46-0500 Heart rate 82 /min Keaton Singhhas DO Work Phone: [facility] 03-29-2024 10:46-0500 Respiratory rate 18 /min Keaton Smiths DO Work Phone: [facility] 03-29-2024 10:46-0500 SaO2% (BldA) [Mass fraction] 99 % Keaton Smiths DO Work Phone: [facility] 03-29-2024 10:46-0500 Systolic blood pressure 163 mm[Hg] Keaton Singhhas DO Work Phone: [facility] 03-20-2024 12:38-0400 Body mass index (BMI) [Ratio] 32 kg/m2 Blu Tellez MD Work Phone: [facility] 03-20-2024 12:38-0400 Body temperature 97.11 [degF] Blu Tellez MD Work Phone: [facility] 03-20-2024 12:38-0400 Body weight 92.7 kg Blu Tellez MD Work Phone: [facility] 03-20-2024 12:38-0400 Diastolic blood pressure 90 mm[Hg] Blu Tellez MD Work Phone: [facility] 03-20-2024 12:38-0400 Heart rate 92 /min Blu Tellez MD Work Phone: [facility] 03-20-2024 12:38-0400 Respiratory rate 18 /min Blu Tellez MD Work Phone: [facility] 03-20-2024 12:38-0400 SaO2% (BldA) [Mass fraction] 96 % Blu Tellez MD Work Phone: [facility] 03-20-2024 12:38-0400 Systolic blood pressure 165 mm[Hg] Blu Tellez MD Work Phone: [facility] 02-13-2024 11:35-0400 Body height 170.18 cm DO Keaton Yuhas Work Phone: [facility] 02-13-2024 11:35-0400 Body temperature 97.9 [degF] DO Keaton Yuhas Work Phone: [facility] 02-13-2024 11:35-0400 Body weight 88.9 kg DO Keaton Yuhas Work Phone: [facility] 02-13-2024 11:35-0400 Diastolic blood pressure 95 mm[Hg] DO Keaton Yuhas Work Phone: [facility] 02-13-2024 11:35-0400 Heart rate 83 /min DO Keaton Yuhas Work Phone: [facility] 02-13-2024 11:35-0400 Respiratory rate 16 /min DO Keaton Yuhas Work Phone: [facility] 02-13-2024 11:35-0400 SaO2% (BldA) [Mass fraction] 99 % DO Keaton Hu Work Phone: [facility] 02-13-2024 11:35-0400 Systolic blood pressure 162 mm[Hg] DO Keaton Hu Work Phone: [facility] 01-31-2024 12:56-0400 Body height 170.2 cm Blu Tellez MD Work Phone: [facility] 01-31-2024 12:56-0400 Body mass index (BMI) [Ratio] 30.65 kg/m2 Blu Tellez MD Work Phone: [facility] 01-31-2024 12:56-0400 Body temperature 97.7 [degF] Blu Tellez MD Work Phone: [facility] 01-31-2024 12:56-0400 Body weight 88.8 kg Blu Tellez MD Work Phone: [facility] 01-31-2024 12:56-0400 Diastolic blood pressure 81 mm[Hg] Blu Tellez MD Work Phone: [facility] 01-31-2024 12:56-0400 Heart rate 94 /min Blu Tellez MD Work Phone: [facility] 01-31-2024 12:56-0400 Respiratory rate 16 /min Blu Tellez MD Work Phone: [facility] 01-31-2024 12:56-0400 SaO2% (BldA) [Mass fraction] 98 % Blu Tellez MD Work Phone: [facility] 01-31-2024 12:56-0400 Systolic blood pressure 139 mm[Hg] Blu Tellez MD Work Phone: [facility] 01-15-2024 16:15-0400 Body mass index (BMI) [Ratio] 30.07 kg/m2 Blu Tellez MD Work Phone: [facility] 01-15-2024 16:15-0400 Body temperature 97.39 [degF] Blu Tellez MD Work Phone: [facility] 01-15-2024 16:15-0400 Body weight 87.1 kg Blu Tellez MD Work Phone: [facility] 01-15-2024 16:15-0400 Diastolic blood pressure 67 mm[Hg] Blu Tellez MD Work Phone: [facility] 01-15-2024 16:15-0400 Heart rate 102 /min Blu Tellez MD Work Phone: [facility] 01-15-2024 16:15-0400 Respiratory rate 18 /min Blu Tellez MD Work Phone: [facility] 01-15-2024 16:15-0400 SaO2% (BldA) [Mass fraction] 97 % Blu Tellez MD Work Phone: [facility] 01-15-2024 16:15-0400 Systolic blood pressure 107 mm[Hg] Blu Tellez MD Work Phone: [facility] 12-27-2023 15:19-0400 Diastolic blood pressure 84 mm[Hg] Keaton Hu DO Work Phone: [facility] 12-27-2023 15:19-0400 Systolic blood pressure 124 mm[Hg] Keaton Hu DO Work Phone: [facility] 12-27-2023 14:39-0400 Body height 170.2 cm Ke[facility] 12-27-2023 14:39-0400 Body mass index (BMI) [Ratio] 30.13 kg/m2 Keaton Hu [facility] 12-27-2023 14:39-0400 Body temperature 98.4 [degF] Keaton Yuhas DO Work Phone: [facility] 12-27-2023 14:39-0400 Body weight 87.27 kg Keaton Hu DO Work Phone: [facility] 12-27-2023 14:39-0400 Heart rate 86 /min Keaton Hu DO Work Phone: [facility] 12-27-2023 14:39-0400 SaO2% (BldA) [Mass fraction] 98 % Keaton Hu DO Work Phone: [facility] 11-21-2023 13:29-0400 Body height 170.2 cm Jessica Winston PA-C Work Phone: [facility] 11-21-2023 13:29-0400 Body mass index (BMI) [Ratio] 30.45 kg/m2 Jessica Winston PA-C Work Phone: [facility] 11-21-2023 13:29-0400 Body temperature 97.9 [degF] Jessica Winston PA-C Work Phone: [facility] 11-21-2023 13:29-0400 Body weight 88.2 kg Jessica Winston PA-C Work Phone: [facility] 11-21-2023 13:29-0400 Diastolic blood pressure 74 mm[Hg] Jessica Winston PA-C Work Phone: [facility] 11-21-2023 13:29-0400 Heart rate 89 /min Jessica Winston PA-C Work Phone: [facility] 11-21-2023 13:29-0400 Respiratory rate 16 /min Jessica Winston PA-C Work Phone: [facility] 11-21-2023 13:29-0400 SaO2% (BldA) [Mass fraction] 99 % Jessica Winston PA-C Work Phone: [facility] 11-21-2023 13:29-0400 Systolic blood pressure 138 mm[Hg] Jessica Winston PA-C Work Phone: [facility] 11-12-2023 13:18-0400 Body mass index (BMI) [Ratio] 30.72 kg/m2 ANTONETTE Dee MD Work Phone: [facility] 11-12-2023 13:18-0400 Body temperature 97.5 [degF] ANTONETTE Dee MD Work Phone: [facility] 11-12-2023 13:18-0400 Body weight 89 kg ANTONETTE Dee MD Work Phone: [facility] 11-12-2023 13:18-0400 Diastolic blood pressure 78 mm[Hg] ANTONETTE Dee MD Work Phone: [facility] 11-12-2023 13:18-0400 Heart rate 89 /min ANTONETTE Dee MD Work Phone: [facility] 11-12-2023 13:18-0400 Respiratory rate 16 /min ANTONETTE Dee MD Work Phone: [facility] 11-12-2023 13:18-0400 Systolic blood pressure 135 mm[Hg] ANTONETTE Dee MD Work Phone: [facility] 11-09-2023 13:30-0400 Body temperature 98.01 [degF] Nurse Mustafa Work Phone: [facility] 11-09-2023 13:30-0400 Diastolic blood pressure 85 mm[Hg] Nurse Mustafa Work Phone: [facility] 11-09-2023 13:30-0400 Heart rate 80 /min Nurse Mustafa Work Phone: [facility] 11-09-2023 13:30-0400 Respiratory rate 16 /min Nurse Mustafa Work Phone: [facility] 11-09-2023 13:30-0400 SaO2% (BldA) [Mass fraction] 97 % Nurse Mustafa Work Phone: [facility] 11-09-2023 13:30-0400 Systolic blood pressure 159 mm[Hg] Mac Work Phone: [facility] 11-05-2023 14:00-0400 Body mass index (BMI) [Ratio] 32.45 kg/m2 Tobi Lee MD Work Phone: [facility] 11-05-2023 14:00-0400 Body temperature 98.29 [degF] Tobi Lee MD Work Phone: [facility] 11-05-2023 14:00-0400 Body weight 94 kg Tobi Lee MD Work Phone: [facility] 11-05-2023 14:00-0400 Diastolic blood pressure 84 mm[Hg] Tobi Lee MD Work Phone: [facility] 11-05-2023 14:00-0400 Heart rate 75 /min Tobi Lee MD Work Phone: [facility] 11-05-2023 14:00-0400 Respiratory rate 16 /min Tobi Lee MD Work Phone: [facility] 11-05-2023 14:00-0400 SaO2% (BldA) [Mass fraction] 98 % Tobi Lee MD Work Phone: [facility] 11-05-2023 14:00-0400 Systolic blood pressure 136 mm[Hg] Tobi Lee MD Work Phone: [facility] 10-31-2023 14:09-0400 Body height 170.2 cm Jessica Winston PA-C Work Phone: [facility] 10-31-2023 14:09-0400 Body mass index (BMI) [Ratio] 31.88 kg/m2 Jessica Winston PA-C Work [facility]: [facility] [facility]23 14:09-0400 Body temperature 98.49 [degF] Jessica Winston PA-C Work Phone: [facility] 10-31-2023 14:09-0400 Body weight 92.35 kg Jessica Winston PA-C Work Phone: [facility] 10-31-2023 14:09-0400 Diastolic blood pressure 73 mm[Hg] Jessica Winston PA-C Work Phone: [facility] 10-31-2023 14:09-0400 Heart rate 85 /min Jessica Winston PA-C Work Phone: [facility] 10-31-2023 14:09-0400 Respiratory rate 16 /min Jessica Winston PA-C Work Phone: [facility] 10-31-2023 14:09-0400 SaO2% (BldA) [Mass fraction] 98 % Jessica Winston PA-C Work Phone: [facility] 10-31-2023 14:09-0400 Systolic blood pressure 133 mm[Hg] Jessica Winston PA-C Work Phone: [facility] 10-29-2023 13:47-0400 Body mass index (BMI) [Ratio] 30.86 kg/m2 ANTONETTE Dee MD Work Phone: [facility] 10-29-2023 13:47-0400 Body temperature 97.11 [degF] ANTONETTE Dee MD Work Phone: [facility] 10-29-2023 13:47-0400 Body weight 89.4 kg ANTONETTE Dee MD Work Phone: [facility] 10-29-2023 13:47-0400 Diastolic blood pressure 77 mm[Hg] ANTONETTE Dee MD Work Phone: [facility] 10-29-2023 13:47-0400 Heart rate 83 /min ANTONETTE Dee MD Work Phone: [facility] 10-29-2023 13:47-0400 Respiratory rate 18 /min ANTONETTE Dee MD Work Phone: [facility] 10-29-2023 13:47-0400 SaO2% (BldA) [Mass fraction] 100 % ANTONETTE Dee MD Work Phone: [facility] 10-29-2023 13:47-0400 Systolic blood pressure 141 mm[Hg] ANTONETTE Dee MD Work Phone: [facility] 10-22-2023 13:59-0400 Body mass index (BMI) [Ratio] 32.83 kg/m2 ANTONETTE Dee MD Work Phone: [facility] 10-22-2023 13:59-0400 Body temperature 98.01 [degF] ANTONETTE Dee MD Work Phone: [facility] 10-22-2023 13:59-0400 Body weight 95.1 kg ANTONETTE Dee MD Work Phone: [facility] 10-22-2023 13:59-0400 Diastolic blood pressure 72 mm[Hg] ANTONETTE Dee MD Work Phone: [facility] 10-22-2023 13:59-0400 Heart rate 86 /min ANTONETTE Dee MD Work Phone: [facility] 10-22-2023 13:59-0400 Respiratory rate 16 /min ANTONETTE Dee MD Work Phone: [facility] 10-22-2023 13:59-0400 SaO2% (BldA) [Mass fraction] 98 % ANTONETTE Dee MD Work Phone: [facility] 10-22-2023 13:59-0400 Systolic blood pressure 142 mm[Hg] ANTONETTE Dee MD Work Phone: [facility] 10-17-2023 13:42-0400 Body temperature 98.71 [degF] Chair Mac Work Phone: [facility] 10-17-2023 13:42-0400 Diastolic blood pressure 82 mm[Hg] Chair Mac Work Phone: [facility] 10-17-2023 13:42-0400 Heart rate 89 /min Chair Mac Work Phone: [facility] 10-17-2023 13:42-0400 Respiratory rate 18 /min Chair Mac Work Phone: [facility] 10-17-2023 13:42-0400 SaO2% (BldA) [Mass fraction] 95 % Chair Mac Work Phone: [facility] 10-17-2023 13:42-0400 Systolic blood pressure 131 mm[Hg] Chair Mac Work Phone: [facility] 10-16-2023 15:28-0400 Body height 170.2 cm Arturo Mcdonald MD Work Phone: [facility] 10-16-2023 15:28-0400 Body mass index (BMI) [Ratio] 33.14 kg/m2 Arturo Mcdonald MD Work Phone: [facility] 10-16-2023 15:28-0400 Body temperature 97 [degF] Arturo Mcdonald MD Work Phone: [facility] 10-16-2023 15:28-0400 Body weight 96 kg Arturo Mcdonald MD Work Phone: [facility] 10-16-2023 15:28-0400 Diastolic blood pressure 77 mm[Hg] Arturo Mcdonald MD Work Phone: [facility] 10-16-2023 15:28-0400 Heart rate 93 /min Arturo Mcdonald MD Work Phone: [facility] 10-16-2023 15:28-0400 Respiratory rate 16 /min Arturo Mcdonald MD Work Phone: [facility] 10-16-2023 15:28-0400 SaO2% (BldA) [Mass fraction] 97 % Arturo Mcdonald MD Work Phone: [facility] 10-16-2023 15:28-0400 Systolic blood pressure 115 mm[Hg] Arturo Mcdonald MD Work Phone: [facility] 09-11-2023 15:31-0400 Body height 170.2 cm Arturo Mcdonald MD Work Phone: [facility] 09-11-2023 15:31-0400 Body mass index (BMI) [Ratio] 31.03 kg/m2 Arturo Mcdonald MD Work Phone: [facility] 09-11-2023 15:31-0400 Body temperature 97.39 [degF] Arturo Mcdonald MD Work Phone: [facility] 09-11-2023 15:31-0400 Body weight 89.9 kg Arturo Mcdonald MD Work Phone: [facility] 09-11-2023 15:31-0400 Diastolic blood pressure 83 mm[Hg] Arturo Mcdonald MD Work Phone: [facility] 09-11-2023 15:31-0400 Heart rate 84 /min Arturo Mcdonald MD Work Phone: [facility] 09-11-2023 15:31-0400 Respiratory rate 18 /min Arturo Mcdonald MD Work Phone: [facility] 09-11-2023 15:31-0400 SaO2% (BldA) [Mass fraction] 98 % Arturo Mcdonald MD Work Phone: [facility] 09-11-2023 15:31-0400 Systolic blood pressure 135 mm[Hg] Arturo Mcdonald MD Work Phone: [facility] 09-11-2023 14:29-0400 Body mass index (BMI) [Ratio] 31.04 kg/m2 ANTONETTE Dee MD Work Phone: [facility] 09-11-2023 14:29-0400 Body temperature 97.39 [degF] ANTONETTE Dee MD Work Phone: [facility] 09-11-2023 14:29-0400 Body weight 89.9 kg ANTONETTE Dee MD Work Phone: [facility] 09-11-2023 14:29-0400 Diastolic blood pressure 83 mm[Hg] ANTONETTE Dee MD Work Phone: [facility] 09-11-2023 14:29-0400 Heart rate 84 /min ANTONETTE Dee MD Work Phone: [facility] 09-11-2023 14:29-0400 Respiratory rate 18 /min ANTONETTE Dee MD Work Phone: [facility] 09-11-2023 14:29-0400 SaO2% (BldA) [Mass fraction] 98 % ANTONETTE Dee MD Work Phone: [facility] 09-11-2023 14:29-0400 Systolic blood pressure 135 mm[Hg] ANTONETTE Dee MD Work Phone: [facility] 09-11-2023 10:28-0400 Body height 170.18 cm [facility] 09-11-2023 10:28-0400 Body mass index (BMI) [Ratio] 30.5 kg/m2 [facility] 09-11-2023 10:28-0400 Body temperature 97.5 [degF] [facility] 09-11-2023 10:28-0400 Body weight 88.45 kg [facility] 09-11-2023 10:28-0400 Heart rate 62 /min [facility] 09-11-2023 10:28-0400 Respiratory rate 16 /min [facility] 09-11-2023 10:28-0400 SaO2% (BldA) [Mass fraction] 98 % [facility] 08-20-2023 13:25-0400 Body height 170.2 cm Keaton Hu DO Work Phone[facility] 08-20-2023 13:25-0400 Body mass index (BMI) [Ratio] 30.12 kg/m2 Keaton Hu DO Work Phone: [employer] 08-20-2023 13:25-0400 Body temperature 98.4 [degF] Keaton Yuhas DO Work Phone: [facility] 08-20-2023 13:25-0400 Body weight 87.23 kg Keaton Smiths DO Work Phone: [facility] 08-20-2023 13:25-0400 Diastolic blood pressure 60 mm[Hg] Keaton Smiths DO Work Phone: [facility] 08-20-2023 13:25-0400 Heart rate 79 /min Keaton Smiths DO Work Phone: [facility] 08-20-2023 13:25-0400 Respiratory rate 18 /min Keaton Smiths DO Work Phone: [facility] 08-20-2023 13:25-0400 SaO2% (BldA) [Mass fraction] 98 % Keaton Hu DO Work Phone: [facility] 08-20-2023 13:25-0400 Systolic blood pressure 122 mm[Hg] Keaton Hu DO Work Phone: [facility] 08-07-2023 13:51-0400 Body height 170.2 cm Grace Noble MD Work Phone: [facility] 08-07-2023 13:51-0400 Body mass index (BMI) [Ratio] 29.1 kg/m2 Grace Noble MD Work Phone: [facility] 08-07-2023 13:51-0400 Body weight 84.28 kg Grace Nolbe MD Work Phone: [facility] 08-07-2023 13:51-0400 Diastolic blood pressure 84 mm[Hg] Grace Noble MD Work Phone: [facility] 08-07-2023 13:51-0400 Systolic blood pressure 128 mm[Hg] Grace Noble MD Work Phone: [facility] 07-26-2023 10:18-0500 Body height 170.18 cm [facility] 07-26-2023 10:18-0500 Body mass index (BMI) [Ratio] 29.9 kg/m2 [facility] 07-26-2023 10:18-0500 Body temperature 98 [degF] [facility] 07-26-2023 10:18-0500 Body weight 86.8 kg [facility] 07-26-2023 10:18-0500 Heart rate 87 /min [facility] 07-26-2023 10:18-0500 Respiratory rate 18 /min [facility] 07-26-2023 10:18-0500 SaO2% (BldA) [Mass fraction] 98 % [facility] 07-19-2023 13:14-0500 Body height 170.2 cm Evans Zurita MD Work Phone: [facility] 07-19-2023 13:14-0500 Body weight 84.9 kg Evans Zurita MD Work Phone: [facility] 07-19-2023 13:14-0500 Diastolic blood pressure 85 mm[Hg] Evans Zurita MD Work Phone: [facility] 07-19-2023 13:14-0500 Heart rate 77 /min Evans Zurita MD Work Phone: [facility] 07-19-2023 13:14-0500 Respiratory rate 16 /min Evans Zurita MD Work Phone: [facility] 07-19-2023 13:14-0500 Systolic blood pressure 135 mm[Hg] Evans Zurita MD Work Phone: [facility] 07-18-2023 12:58-0500 Body height 170.5 cm Filomena LOPEZ Work Phone: [facility] 07-18-2023 12:58-0500 Body mass index (BMI) [Ratio] 29.49 kg/m2 Filomena LOPEZ Work Phone: [facility] 07-18-2023 12:58-0500 Body temperature 98.71 [degF] Filomena Avendano PA Work Phone: [employer] 07-18-2023 12:58-0500 Body weight 85.73 kg Filomena [facility]endano [facility] 07-18-2023 12:58-0500 Diastolic blood pressure 90 mm[Hg] Filomena Avendano PA [facility] 07-18-2023 12:58-0500 Heart rate 91 /min Filomena Avendano PA [facility] 07-18-2023 12:58-0500 Respiratory rate 18 /min Filomena Avendano PA [facility] 07-18-2023 12:58-0500 SaO2% (BldA) [Mass fraction] 100 % Filomena Avendano PA [facility] 07-18-2023 12:58-0500 Systolic blood pressure 137 mm[Hg] Filomena Avendano PA [facility] 07-17-2023 13:54-0500 Body mass index (BMI) [Ratio] 29.79 kg/m2 [facility] 07-17-2023 13:54-0500 Body weight 86.27 kg Grace Noble [facility] 07-17-2023 13:54-0500 Diastolic blood pressure 56 mm[Hg] Grace Noble MD [facility] 07-17-2023 13:54-0500 Systolic blood pressure 120 mm[Hg] Grace [facility] 07-11-2023 14:38-0500 Body temperature 97.81 [degF] ANTONETTE Dee MD Work Phone: [facility] 07-11-2023 14:38-0500 Body weight 86.8 kg ANTONETTE Dee MD Work Phone: [facility] 07-11-2023 14:38-0500 Diastolic blood pressure 77 mm[Hg] ANTONETTE Dee MD Work Phone: [facility] 07-11-2023 14:38-0500 Heart rate 99 /min ANTONETTE Dee MD Work Phone: [facility] 07-11-2023 14:38-0500 Respiratory rate 16 /min ANTONETTE Dee MD Work Phone: [facility] 07-11-2023 14:38-0500 SaO2% (BldA) [Mass fraction] 97 % ANTONETTE Dee MD Work Phone: [facility] 07-11-2023 14:38-0500 Systolic blood pressure 112 mm[Hg] ANTONETTE Dee MD Work Phone: [facility] 07-10-2023 14:14-0500 Body height 170.2 cm Arturo Mcdonald MD Work Phone: [facility] 07-10-2023 14:14-0500 Body temperature 97.3 [degF] Arturo Mcdonald MD Work Phone: [facility] 07-10-2023 14:14-0500 Body weight 87.3 kg Arturo Mcdonald MD Work Phone: [facility] 07-10-2023 14:14-0500 Diastolic blood pressure 81 mm[Hg] Arturo Mcdonald MD Work Phone: [facility] 07-10-2023 14:14-0500 Heart rate 102 /min Arturo Mcdonald MD Work Phone: [facility] 07-10-2023 14:14-0500 Respiratory rate 16 /min Arturo Mcdonald MD Work Phone: [facility] 07-10-2023 14:14-0500 SaO2% (BldA) [Mass fraction] 100 % Arturo Mcdonald MD Work Phone: [facility] 07-10-2023 14:14-0500 Systolic blood pressure 138 mm[Hg] Arturo Mcdonald MD Work Phone: [facility] 07-04-2023 13:59-0500 Body height 170.2 cm Chasity Diez DO Work Phone: [facility] 07-04-2023 13:59-0500 Body mass index (BMI) [Ratio] 29.85 kg/m2 Chasity Diez DO Work Phone: [facility] 07-04-2023 13:59-0500 Body weight 86.46 kg Chasity Diez DO Work Phone: [facility] 07-04-2023 13:59-0500 Diastolic blood pressure 83 mm[Hg] Chasity Diez DO Work Phone: [facility] 07-04-2023 13:59-0500 Heart rate 84 /min Chasity Diez DO Work Phone: [facility] 07-04-2023 13:59-0500 Systolic blood pressure 165 mm[Hg] Chasity Diez DO Work Phone: [facility] 06-25-2023 13:20-0500 Body height 170.2 cm [facility] 06-25-2023 13:20-0500 Body mass index (BMI) [Ratio] 30.54 kg/m2 [facility] 06-25-2023 13:20-0500 Body weight 88.45 kg [facility] 06-20-2023 13:59-0500 Body height 170.2 cm Chasity Diez DO Work Phone: [facility] 06-20-2023 13:59-0500 Body mass index (BMI) [Ratio] 30.54 kg/m2 Chasity Diez DO Work Phone: [facility] 06-20-2023 13:59-0500 Body weight 88.45 kg Chasity Diez DO Work Phone: [facility] 06-18-2023 12:56-0500 Body height 170.2 cm Grace Noble MD Work Phone: [facility] 06-18-2023 12:56-0500 Body mass index (BMI) [Ratio] 30.57 kg/m2 Grace Noble MD Work Phone: [facility] 06-18-2023 12:56-0500 Body weight 88.54 kg Grace Noble MD Work Phone: [facility] 06-18-2023 12:56-0500 Diastolic blood pressure 86 mm[Hg] Grace Noble MD Work Phone: [facility] 06-18-2023 12:56-0500 Systolic blood pressure 134 mm[Hg] Grace Noble MD Work Phone: [facility] 06-12-2023 12:26-0500 Body height 170.2 cm Keaton Hu DO Work Phone: [facility] 06-12-2023 12:26-0500 Body mass index (BMI) [Ratio] 30.18 kg/m2 Keaton Hu DO Work Phone: [facility] 06-12-2023 12:26-0500 Body temperature 98.1 [degF] Keaton Smiths DO Work Phone: [facility] 06-12-2023 12:26-0500 Body weight 87.41 kg Keaton Smiths DO Work Phone: [facility] 06-12-2023 12:26-0500 Diastolic blood pressure 80 mm[Hg] Keaton Luiss DO Work Phone: [facility] 06-12-2023 12:26-0500 Heart rate 93 /min Keaton Luiss DO Work Phone: [facility] 06-12-2023 12:26-0500 SaO2% (BldA) [Mass fraction] 99 % Keaton Hu DO Work Phone: [employer] 06-12-2023 12:26-0500 Systolic blood pressure 122 mm[Hg] Keaton Hu DO Work Phone: [employer] 05-24-2023 10:50-0500 Body height 170.2 cm [facility] 05-24-2023 10:50-0500 Body mass index (BMI) [Ratio] 31.32 kg/m2 [facility] 05-24-2023 10:50-0500 Body weight 90.72 kg [facility] 04-29-2023 11:15-0500 Body height 170.18 cm Briseyda Eastman Other [employer] Other 04-29-2023 11:15-0500 Body mass index (BMI) [Ratio] 32.29 kg/m2 Briseyda Eastman Other [employer] Other 04-29-2023 11:15-0500 Body temperature 98.1 [degF] Briseyda Eastman Other [employer] Other 04-29-2023 11:15-0500 Body weight 93.53 kg Briseyda Eastman Other [employer] Other 04-29-2023 11:15-0500 Diastolic blood pressure 64 mm[Hg] Briseyda Eastman Other [employer] Other 04-29-2023 11:15-0500 SaO2% (BldA) [Mass fraction] 95 % Briseyda Eastman Other [employer] Other 04-29-2023 11:15-0500 Systolic blood pressure 108 mm[Hg] Briseyda Eastman Other [employer] Other Encounters Encounter Date Encounter Type Care Provider Facility Start: 12-09-2024 End: 12-09-2024 Refill Keaton Hu DO [facility] Comment on above: Benign paroxysmal po sitional vertigo, unspecified laterality Start: 12-02-2024 End: 12-02-2024 Refill Kassi Rosado CMA [facility] Comment on above: Type 2 diabetes miki itus without complication, with long-term current use of insulin [place] Start: 11-28-2024 End: 11-28-2024 Refill Keaton Hu DO Work Phone: [facility] Comment on above: 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, with long-term current use of insulin ([facility] Start: 11-17-2024 End: 11-17-2024 Office outpatient visit 25 minutes Blu Tellez MD Work Phone: Hematology/Oncology Comment on above: Malignant neoplasm o f rectum (HCC) (Primary Dx); Type 2 diabetes mellitus with hyperglycemia, with long-term current use of insulin (HCC); Non-pressure chronic ulcer of skin of other sites with unspecified severity (HCC); Encounter for follow-up examination after completed treatment for conditions other than malignant neoplasm; 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); Personal history of malignant neoplasm of rectum, rectosigmoid junction, and anus; Non-pressure chronic ulcer of right lower leg, unspecified ulcer stage (HCC); Type 2 diabetes mellitus without complication, with long-term current use of insulin (HCC); Encounter for follow-up examination after completed treatment for malignant neoplasm; Family history of ischemic heart disease Start: 11-17-2024 End: 11-17-2024 ambulatory BLU TELLEZ Facility:[facility] Start: 11-14-2024 ambulatory KEATON Babb lity:[facility] Start: 11-14-2024 End: 11-14-2024 Subsequent hospital visit by physician Crystal [facility] (Istat/3t) Work Phone: [facility] Radiology MRI Comment on above: Malignant neoplasm o f rectum (HCC) [C20] Start: 11-07-2024 End: 11-07-2024 Refill Kassi Rosado C[facility] Comment on above: Benign paroxysmal po sitional vertigo, unspecified laterality Start: 11-05-2024 End: 11-05-2024 Office outpatient visit 25 minutes Keaton Hamilton Jh DO Work Phone: [facility] Comment on above: 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, with long-term current use of insulin ([facility]) (Primary Dx); Depression, unspecified depression type; Mixed hyperlipidemia Start: 11-02-2024 End: 11-02-2024 Refill Keaton Hu DO [facility] Comment on above: Panic attack as reac tion to stress; Essential hypertension; Iron deficiency Start: 11-02-2024 End: 11-02-2024 Emergency department patient visit [facility] Start: 10-30-2024 End: 10-30-2024 Patient encounter procedure Keaton Hu DO Work Phone: [facility] Comment on above: Encounter for subseq uent annual wellness visit (AWV) in Medicare patient (Primary Dx); PAF (paroxysmal atrial fibrillation) ([facility] Encounter for screening mammogram for malignant neoplasm of breast Start: 10-30-2024 End: 10-30-2024 ambulatory [facility] Start: 09-10-2024 End: 09-10-2024 Refill Keaton Hu DO Work [facility] Comment on above: Benign paroxysmal po sitional vertigo, unspecified laterality Start: 09-05-2024 End: 09-05-2024 Refill Keaton Hu DO Work [facility] Comment on above: 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, with long-term current use of insulin ([facility]) Start: 08-14-2024 End: 08-14-2024 Office outpatient visit 40 minutes Blu Tellez MD Work Phone: Hematology/Oncology Comment on above: Malignant neoplasm o f rectum (HCC) (Primary Dx); Type 2 diabetes mellitus with other specified complication, with long-term current use of insulin (HCC); Other depression; Wound cellulitis; Rectal cancer (HCC); Stage 3a chronic kidney disease (HCC) Start: 08-14-2024 End: 08-14-2024 ambulatory BLU TELLEZ Facility:[facility] Start: 08-08-2024 End: 08-12-2024 Telephone encounter Little Bowens RN Work Phone: Hematology/Oncology Comment on above: Care Coordination (F ollow up appointment in 2 months) Start: 08-07-2024 End: 08-07-2024 Refill Keaton Hu DO [facility] Comment on above: Benign paroxysmal po sitional vertigo, unspecified laterality; Essential hypertension; Type 2 diabetes mellitus without complication, with long-term current use of insulin ([facility]); Iron deficiency; Mixed hyperlipidemia Start: 07-30-2024 End: 07-30-2024 Telephone encounter Little Bowens RN Work Phone: Hematology/Oncology Comment on above: Care Coordination (C linical update) Patient Update Rectal cancer (HCC) (Primary Dx) Start: 07-29-2024 ambulatory EVANS ZURITA Facilit y:[facility] Start: 07-29-2024 End: 07-29-2024 Subsequent hospital visit by physician Evans Zurita MD Work Phone: [facility] Endoscopy - ENDO Comment on above: Rectal cancer (HCC) [C20] Start: 07-24-2024 End: 07-24-2024 Telephone encounter Evans Zurita MD Work Phone: Colorectal Surgery Comment on above: Preparations For Aries dior; [employer] Other Start: 07-23-2024 End: 07-23-2024 Admission to same day surgery center Evans Zurita MD Work Phone: Colorectal Surgery Comment on above: Flexible Sigmoidosco py scheduled for 07/29 ostomy education Start: 07-23-2024 End: 07-23-2024 E-mail encounter from caregiver Evans Zurita MD Work Phone: Colorectal Surgery Start: 07-23-2024 End: 07-24-2024 Telephone encounter Evans Zurita MD Work Phone: Colorectal Surgery Comment on above: Preparations For Aries dior; [employer] - Other Start: 07-22-2024 End: 07-23-2024 Admission to same day surgery center Loyda Sinha RN Colorectal Surgery Comment on above: Preparations For Aries dior Start: 07-22-2024 End: 07-23-2024 ambulatory Loyda Sinha RN Colorectal Surgery Start: 07-21-2024 End: 07-21-2024 Admission to same day surgery center Evans Zurita MD Work Phone: Colorectal Surgery Comment on above: Rectal cancer (HCC) (Primary Dx) Start: 07-21-2024 End: 07-21-2024 ambulatory EVANS ZURITA Facility:[facility] Start: 07-21-2024 End: 07-21-2024 Telemedicine consultation with patient Evans Zurita MD Work Phone: Colorectal Surgery Start: 07-14-2024 End: 07-14-2024 Telephone encounter Evans Zurita MD Work Phone: Colorectal Surgery Comment on above: Appointment (Appoint ment needed for follow up rectal cancer) Start: 07-11-2024 End: 07-11-2024 Telephone encounter Pauline JEAN BAPTISTEW Hematology/Oncology Start: 07-10-2024 End: 07-10-2024 Telephone encounter Pauline JUNIOR Hematology/Oncology Start: 07-09-2024 End: 07-14-2024 Telephone encounter Evans Zurita MD Work Phone: Colorectal Surgery Comment on above: Appointment (Follow up with Dr Zurita needed) Start: 07-08-2024 End: 07-23-2024 Telephone encounter Blu Tellez MD Work Phone: [facility] Comment on above: Future Appointment Start: 07-08-2024 End: 07-10-2024 ambulatory BLU TELLEZ Facility:[facility] Start: 07-08-2024 End: 07-08-2024 Office outpatient visit 40 minutes Blu Tellez MD Work Phone: Hematology/Oncology Comment on above: Rectal cancer (HCC) (Primary Dx); Type 2 diabetes mellitus with other specified complication, with long-term current use of insulin (HCC); Wound cellulitis Start: 07-08-2024 End: 07-08-2024 ambulatory [facility] Facility:[facility] Start: 07-08-2024 End: 07-08-2024 Emergency department patient visit [facility] Start: 07-03-2024 End: 07-03-2024 Telephone encounter Little Bowens RN Work Phone: Hematology/Oncology Comment on above: Care Coordination (M RI results) Start: 07-02-2024 End: 09-01-2024 Follow-up encounter Jessica Eubanks PA-C Work Phone: Hematology/Oncology Start: 07-01-2024 ambulatory JESSICA EUBANKS Facility :[facility] Start: 07-01-2024 End: 07-01-2024 Subsequent hospital visit by physician Crystal Marroquin (I-Stat/1.5t) Work Phone: Radiology Comment on above: Rectal cancer (HCC) [C20] Start: 06-26-2024 End: 06-26-2024 Refill Keaton Hu DO Work Phone: [facility] - [facility] Comment on above: Mixed hyperlipidemia Start: 06-25-2024 End: 06-25-2024 Telephone encounter Blu Tellez MD Work Phone: Cancer [facility] Comment on above: No Show Start: 06-24-2024 End: 06-24-2024 Emergency department patient visit [facility] Start: 06-23-2024 End: 06-27-2024 Telephone encounter Little Bowens RN Work Phone: Hematology/Oncology Comment on above: Care Coordination (C T results) Start: 06-23-2024 End: 06-23-2024 ambulatory JESSICA EUBANKS Facility:[facility] Start: 06-23-2024 End: 06-23-2024 Subsequent hospital visit by physician Arrival Time Radiology Work Phone: Radiology Pet CT Comment on above: Rectal cancer (HCC) [C20] Start: 06-17-2024 End: 06-17-2024 Telephone encounter Pauline Fatima [facility] Hematology/Oncology Start: 06-16-2024 End: 06-16-2024 Refill Keaton Hamilton Marissarobeyunior BUNN Work Phone: [facility] - [facility] Comment on above: 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, with long-term current use of insulin ([facility]) Start: 06-10-2024 End: 06-10-2024 Telephone encounter Pauline Fatima [facility] Hematology/Oncology Start: 06-08-2024 End: 06-08-2024 Emergency department patient visit [facility] Start: 06-05-2024 End: 06-05-2024 Telephone encounter Little Bowens RN Work Phone: Hematology/Oncology Comment on above: Care Coordination (C linical update) Start: 06-04-2024 End: 06-16-2024 Telephone encounter Jessica Eubanks PA-C Work Phone: [facility] Comment on above: Future Appointment Start: 06-04-2024 End: 06-04-2024 ambulatory Chair 12 Mac Work Phone: Hematology/Oncology Comment on above: Rectal cancer (HCC) (Primary Dx) Start: 06-04-2024 End: 06-04-2024 Office outpatient visit 25 minutes Jessica Eubanks PA-C Work Phone: Hematology/Oncology Comment on above: Rectal cancer (HCC) (Primary Dx); Wound cellulitis; Type 2 diabetes mellitus with other specified complication, with long-term current use of insulin (HCC); Other depression Start: 06-04-2024 End: 06-04-2024 [facility] Start: 05-23-2024 End: 05-23-2024 Telephone encounter Pauline Fatima [facility] Hematology/Oncology Start: 05-16-2024 End: 05-16-2024 Office outpatient visit 25 minutes Mohsen Carrera APRN.SOLE SPLITTER Work Phone: Hematology/Oncology Comment on above: Rectal cancer (HCC) (Primary Dx); Wound cellulitis; Malaise and fatigue; Depression, unspecified depression type Start: 05-16-2024 End: 05-16-2024 Social Work Pauline Fatima [facility] Hematology/Oncology Start: 05-09-2024 End: 05-09-2024 Refill Keaton Hu DO Work Phone: [facility] Comment on above: Benign paroxysmal po sitional vertigo, unspecified laterality; Panic attack as reaction to stress Start: 05-08-2024 End: 05-08-2024 [facility] Start: 05-08-2024 End: 05-08-2024 Office outpatient visit 25 minutes Keaton Hu DO Work Phone: [facility] Comment on above: 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, with long-term current use of insulin ([facility]) (Primary Dx); Essential hypertension; Mixed hyperlipidemia; Adenocarcinoma of rectum ([facility]-HCC); Encounter for screening mammogram for malignant neoplasm of breast Start: 05-08-2024 End: 05-08-2024 ambulatory [facility] Start: 04-24-2024 End: 05-02-2024 Telephone encounter Margarette Hernandez APRN.SOLE SPLITTER Work Phone: Cancer [facility] Comment on above: No Show Start: 04-10-2024 End: 04-10-2024 Patient encounter procedure Margarette Hernandez APRN.SOLE SPLITTER Work Phone: Hematology/Oncology Start: 04-10-2024 End: 04-10-2024 ambulatory Margarette Hernandez APRDorianSOLE SPLITTER Work Phone: Hematology/Oncology Comment on above: Rectal cancer (HCC) (Primary Dx); Type 2 diabetes mellitus with other specified complication, with long-term current use of insulin ([facility]) Start: 04-09-2024 End: 04-09-2024 Refill Keaton Hu DO Work Phone: [facility] Comment on above: Type 2 diabetes miki itus without complication, with long-term current use of insulin ([facility]); Type 2 diabetes mellitus with microalbuminuria, with long-term current use of insulin ([facility]) Start: 04-07-2024 End: 04-07-2024 [facility] Comment on above: Essential hypertensi on (Primary Dx); Type 2 diabetes mellitus without complication, with long-term current use of insulin ([facility]) Start: 04-04-2024 End: 04-04-2024 Refill Keaton Hu DO Work Phone: [facility] Comment on above: Anxiety about health (Primary Dx); Mixed hyperlipidemia; Iron deficiency; Essential hypertension; Type 2 diabetes mellitus without complication, with long-term current use of insulin ([facility]); Benign paroxysmal positional vertigo, unspecified laterality; Panic attack as reaction to stress Start: 03-29-2024 End: 03-29-2024 ambulatory Keaton Hu DO Work Phone: [facility] Work Phone: Start: 03-29-2024 End: 03-29-2024 Patient encounter procedure Keaton Hu DO Work Phone: [facility] Work Phone: Start: 03-27-2024 End: 04-21-2024 Refill [facility] Comment on above: Type 2 diabetes miki itus without complication, with long-term current use of insulin ([facility]) Start: 03-24-2024 End: 03-25-2024 Telephone encounter Little Bowens RN Work Phone: Hematology/Oncology Comment on above: Care Coordination (N ot feeling well) Start: 03-21-2024 End: 03-28-2024 Telephone encounter [facility] Start: 03-20-2024 End: 03-21-2024 ambulatory Chair Alisia Mustafa Work Phone: Hematology/Oncology Comment on above: Rectal cancer (HCC) (Primary Dx) Start: 03-20-2024 End: 03-20-2024 Office outpatient visit 25 minutes Blu Tellez MD Work Phone: Hematology/Oncology Comment on above: Rectal cancer (HCC) (Primary Dx); Stage 3a chronic kidney disease (HCC); Type 2 diabetes mellitus with other specified complication, with long-term current use of insulin (HCC) Start: 03-20-2024 End: 03-20-2024 ambulatory [facility] Facility:[facility] Start: 03-07-2024 End: 03-13-2024 Telephone encounter Blu Tellez MD Work Phone: Cancer [facility] Comment on above: Appointment Reschedu led Start: 03-06-2024 End: 03-06-2024 ambulatory [facility] Facility:[facility] Start: 03-04-2024 End: 03-04-2024 Refill Sindy Florence [facility] Work Phone: [facility] Comment on above: Refill Request Start: 02-19-2024 End: 02-20-2024 Telephone encounter [facility]: Appoint[facility] Reschedu led Start: 02-13-2024 End: 02-13-2024 Admission to same day surgery center DO Keaton Singhrobeyunior Work Phone: [facility] [place] Start: 02-13-2024 End: 02-13-2024 ambulatory DO Keaton Hu Work Phone: [facility] Work Phone: Start: 02-06-2024 End: 02-12-2024 Refill Little Bowens RN Work Phone: Hematology/Oncology Comment on above: Refill Request Start: 02-04-2024 End: 02-06-2024 Telephone encounter Pauline Fatima SALES MANAGEMENT TRAINEE Hematology/Oncology Comment on above: Care Coordination (C 1D1 treatment follow up call) Start: 02-01-2024 End: 02-05-2024 Telephone encounter Jeniffer Hunter RN Hematology/Oncology Comment on above: Patient Update Start: 01-31-2024 End: 01-31-2024 Nursing evaluation of patient and report Little Bowens RN Work Phone: Hematology/Oncology Comment on above: Rectal cancer (HCC) (Primary Dx) Start: 01-31-2024 End: 01-31-2024 Office outpatient visit 40 minutes Blu Tellez MD Work Phone: Hematology/Oncology Comment on above: Rectal cancer (HCC) (Primary Dx); Malignant neoplasm of rectum (HCC); Type 2 diabetes mellitus with other specified complication, with long-term current use of insulin (HCC); Stage 3a chronic kidney disease (HCC) Start: 01-31-2024 End: 02-01-2024 ambulatory Chair Alisia Mustafa Work Phone: Hematology/Oncology Comment on above: Rectal cancer (HCC) (Primary Dx) Start: 01-30-2024 End: 02-12-2024 Telephone encounter Little Bowens RN Work Phone: Hematology/Oncology Comment on above: Care Coordination (C hemo ed) Care Coordination (X eloda script) Start: 01-30-2024 End: 01-30-2024 ambulatory KEATON HU Facility:[facility] Start: 01-30-2024 End: 01-30-2024 Nursing evaluation of patient and report Little Bowens RN Work Phone: Hematology/Oncology Comment on above: Rectal cancer (HCC) (Primary Dx) Start: 01-28-2024 End: 01-28-2024 Telephone encounter Blu Tellez MD Work Phone: Hematology/Oncology Comment on above: Lab Orders Start: 01-15-2024 End: 01-15-2024 ambulatory BLU TELLEZ Facility:[facility] Start: 01-15-2024 End: 01-15-2024 Office outpatient visit 25 minutes Blu Tellez MD Work Phone: Hematology/Oncology Comment on above: Malignant neoplasm o f rectum (HCC) (Primary Dx); Rectal cancer (HCC); Lung nodules Start: 01-14-2024 End: 01-14-2024 Telephone encounter Little Bowens RN Work Phone: Hematology/Oncology Comment on above: Care Coordination (A ppointments, MRI result) Start: 01-10-2024 ambulatory [facility] Facility :[facility] Start: 01-10-2024 End: 01-10-2024 Subsequent hospital visit by physician Crystal Zunigaview Lopez (I-Stat/1.5t) Work Phone: Radiology Comment on above: Malignant neoplasm o f rectum (HCC) [C20] Start: 01-09-2024 End: 01-09-2024 Telephone encounter Terrie Mota Radiology Comment on above: Appointment instruct ions Start: 01-03-2024 End: 01-03-2024 Refill Yolanda Roth [facility] Internal [facility] - [facility] Start: 12-31-2023 End: 12-31-2023 Telephone encounter Yolanda Roth [facility] Start: 12-29-2023 End: 12-29-2023 Orders Only Keaton Hu DO Work Phone: [facility] Comment on above: 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, with long-term current use of insulin ([facility]) (Primary Dx); Mixed hyperlipidemia Start: 12-27-2023 End: 12-27-2023 ambulatory KEATON HU [facility] Start: 12-27-2023 End: 12-27-2023 Office outpatient visit 25 minutes Keaton Hu DO Work Phone: [facility] Comment on above: Type 2 diabetes miki itus without complication, with long-term current use of insulin ([facility]) (Primary Dx); Essential hypertension; Mixed hyperlipidemia Start: 12-27-2023 End: 12-27-2023 [facility] Start: 12-23-2023 End: 12-24-2023 Refill Keaton Hu DO Work Phone: [facility] Internal Medicine - Family Medicine Comment on above: Hypokalemia due to e xcessive gastrointestinal loss of potassium Start: 12-17-2023 End: 12-17-2023 Refill Keaton Hu DO Work Phone: [facility] Internal Medicine - Family Medicine Comment on above: Iron deficiency Start: 12-12-2023 End: 12-13-2023 Telephone encounter Winter S[facility] Internal Medicine - Family Medicine Start: 12-06-2023 End: 12-06-2023 Refill Keaton Hu DO Work Phone: [facility] Internal Medicine - Family Medicine Comment on above: Depression, unspecif ied depression type Start: 12-05-2023 End: 12-05-2023 Refill Keaton Hu DO Work Phone: [facility] Internal Medicine - Family Medicine Comment on above: Type 2 diabetes miki itus without complication, with long-term current use of insulin ([facility]) Start: 12-04-2023 End: 12-04-2023 Telephone encounter Keaton Hu DO Work Phone: [facility] Start: 11-30-2023 End: 11-30-2023 Refill Yolanda [facility] Internal Medicine - Family Medicine Comment on above: Hypokalemia due to e xcessive gastrointestinal loss of potassium (Primary Dx) Start: 11-27-2023 Telephone encounter Little Bowens RN Work Phone: Hematology/Oncology Comment on above: Care Coordination (C T resutls) Start: 11-23-2023 Patient encounter procedure Patricia Dee MD Work Phone: Radiation Oncology Start: 11-23-2023 Radiation Oncology Note Patricia Dee MD Work Phone: Radiation Oncology Comment on above: Completion Note Start: 11-23-2023 End: 11-23-2023 Subsequent hospital visit by physician Arrival Time Radiology Work Phone: Radiology Pet CT Comment on above: Malignant neoplasm o f rectum (HCC) [C20] Start: 11-21-2023 End: 11-21-2023 Office outpatient visit 15 minutes Jessica Eubanks PA-C Work Phone: Hematology/Oncology Comment on above: Malignant neoplasm o f rectum (HCC) (Primary Dx); Rectal cancer (HCC); Lung nodules Start: 11-21-2023 Social Work Pauline JUNIOR Hematolo gy/Oncology Comment on above: Future Appointment Start: 11-19-2023 Telephone encounter Pauline JUNIOR H ematology/Oncology Start: 11-19-2023 End: 11-19-2023 Patient encounter procedure Patricia Dee MD Work Phone: Radiation Oncology Comment on above: Rectal cancer (HCC) (Primary Dx) Start: 11-16-2023 Telephone encounter Pauline JUNIOR H ematology/Oncology Start: 11-15-2023 Telephone encounter Pauline JUNIOR H ematology/Oncology Start: 11-14-2023 Social Work Pauline JUNIOR Hematolo gy/Oncology Start: 11-12-2023 End: 11-12-2023 Patient encounter procedure Patricia Dee MD Work Phone: Radiation Oncology Comment on above: Rectal cancer (HCC) (Primary Dx) Start: 11-09-2023 Telephone encounter Patricia Dee MD Work Phone: Radiation Oncology Comment on above: Patient Update Start: 11-09-2023 End: 11-09-2023 Nursing evaluation of patient and report Nurse Torin Mustafa Work Phone: Radiation Oncology Comment on above: Rectal cancer (HCC) (Primary Dx) Start: 11-08-2023 End: 11-08-2023 Telephone encounter Little Bowens RN Work Phone: Hematology/Oncology Comment on above: Care Coordination (T oxicity check) Essential hypertensi on (Primary Dx) Start: 11-05-2023 End: 11-05-2023 Social Work Pauline JUNIOR Hematology/Oncology Comment on above: Rectal cancer (HCC) (Primary Dx) Start: 10-31-2023 End: 10-31-2023 Office outpatient visit 25 minutes Jessica Eubanks PA-C Work Phone: Hematology/Oncology Comment on above: Rectal cancer (HCC) (Primary Dx); Type 2 diabetes mellitus with other specified complication, with long-term current use of insulin (HCC); Stage 3a chronic kidney disease (HCC) Start: 10-31-2023 Telephone encounter Little Bowens RN Work Phone: Hematology/Oncology Comment on above: Care Coordination (T oxicity check) Start: 10-29-2023 End: 10-29-2023 Patient encounter procedure Patricia Dee MD Work Phone: Radiation Oncology Comment on above: Rectal cancer (HCC) (Primary Dx) Start: 10-23-2023 Telephone encounter Pauline JUNIOR H ematology/Oncology Comment on above: Care Coordination (C 1D1 treatment follow up call) Start: 10-22-2023 End: 10-22-2023 Patient encounter procedure Patricia Dee MD Work Phone: Radiation Oncology Comment on above: Rectal cancer (HCC) (Primary Dx) Start: 10-18-2023 Telephone encounter Little Bowens RN Work Phone: Hematology/Oncology Comment on above: Care Coordination (I V site soreness) Start: 10-17-2023 End: 10-17-2023 ambulatory Chair 21 Mac Work Phone: Hematology/Oncology Comment on above: Rectal cancer (HCC) (Primary Dx) Start: 10-17-2023 End: 10-23-2023 Telephone encounter Ashwini Stanton RN Hematology/Oncology Comment on above: IV hydration Start: 10-17-2023 End: 10-17-2023 Nursing evaluation of patient and report Ma Nurse Jaiden Lopez Work Phone: Hematology/Oncology Comment on above: Type 2 diabetes miki itus with other specified complication, with long-term current use of insulin (HCC) (Primary Dx); Loss of consciousness (HCC) Rectal adenocarcinom a (HCC) (Primary Dx) Start: 10-16-2023 End: 10-16-2023 ambulatory Arturo Mcdonald MD Work Phone: Hematology/Oncology Comment on above: Rectal cancer (HCC) (Primary Dx) Start: 10-16-2023 End: 10-16-2023 Patient encounter procedure Arturo Mcdonald MD Work Phone: Hematology/Oncology Comment on above: Type 2 diabetes miki itus with other specified complication, with long-term current use of insulin ([facility]) Start: 10-16-2023 End: 10-17-2023 Refill Nerissa Rushing Latricia BRISCOEN-COMMUNICATIONS EQUIPMENT OPERATOR Work Phone: [facility] Comment on above: Type 2 diabetes miki itus without complication, without long- term current use of insulin ([facility]) Start: 10-16-2023 Telephone encounter Ashwini Tovar Hematology/Oncology Comment on above: Critical Results Start: 10-11-2023 End: 10-11-2023 Refill Keaton Hu DO Work Phone: [facility] - [facility] Comment on above: Depression, unspecif ied depression type Start: 10-10-2023 Telephone encounter Pauline JUNIOR H ematology/Oncology Start: 10-05-2023 Telephone encounter Patricia Dee MD Work Phone: Radiation Oncology Comment on above: Patient Update; Appo intment Start: 10-04-2023 End: 10-04-2023 Patient encounter procedure Kelsy Saleh DDS Work Phone: Dentistry Comment on above: Periapical abscess ( Primary Dx); Dental caries Tooth fracture (Prim telly Dx); Rectal adenocarcinoma (HCC); Dental caries Start: 10-02-2023 Telephone encounter Pauline JUNIOR H ematology/Oncology Start: 10-01-2023 Telephone encounter Pauline JUNIOR H ematology/Oncology Start: 09-26-2023 Telephone encounter Patricia Dee MD Work Phone: Radiation Oncology Comment on above: Future Appointment; Patient Update; Dental Emergency Start: 09-24-2023 Telephone encounter Pauline JUNIOR H ematology/Oncology Comment on above: Care Coordination (A ppointment update) Start: 09-19-2023 Telephone encounter Little Bowens RN Work Phone: Hematology/Oncology Comment on above: Care Coordination (s urvivorship) Start: 09-18-2023 End: 09-18-2023 Subsequent hospital visit by physician Patricia Dee MD Work Phone: Radiology Pet CT Start: 09-18-2023 End: 09-18-2023 Nursing evaluation of patient and report Little Bowens RN Work Phone: Hematology/Oncology Comment on above: Rectal cancer (HCC) (Primary Dx) Start: 09-18-2023 End: 09-19-2023 Patient encounter procedure Patricia Dee MD Work Phone: Radiation Oncology Comment on above: Rectal adenocarcinom a (HCC) (Primary Dx) Start: 09-18-2023 Radiation Oncology Note Patricia Dee MD Work Phone: Radiation Oncology Comment on above: Simulation Note Treatment Planning Start: 09-18-2023 Telephone encounter Little Bowens RN Work Phone: Hematology/Oncology Comment on above: Care Coordination; O pened In Error Care Coordination (C linical update) Treatment Planning Start: 09-17-2023 End: 09-17-2023 Refill Keaton Hu DO Work Phone: [facility] Comment on above: Iron deficiency Start: 09-14-2023 End: 09-14-2023 Refill Keaton L Yuhas DO Work Phone: [facility] - [facility] Comment on above: Type 2 diabetes miki itus without complication, with long-term current use of insulin ([facility]) Start: 09-14-2023 Telephone encounter Pauline JUNIOR H ematology/Oncology Start: 09-13-2023 Telephone encounter Pauline JUNIOR H ematology/Oncology Start: 09-12-2023 Telephone encounter Patricia Dee MD Work Phone: Radiation Oncology Comment on above: Future Appointment Medication Update (c apecitabine) Care Coordination (A ntiemetics for treatment) Start: 09-11-2023 End: 09-11-2023 ambulatory More Madsen [facility] Work Phone: Comment on above: Patient Education Rectal cancer (HCC) (Primary Dx) Start: 09-11-2023 End: 09-11-2023 Patient encounter procedure [facility] Work Phone: Comment on above: Rectal adenocarcinom a (HCC) (Primary Dx) Start: 2023 End: 2023 Refill Keaton Hu DO Work Phone: [facility] - [facility] Start: 09-07-2023 Telephone encounter Livier costa RN Work Phone: Hematology/Oncology Comment on above: Results (MRI) Start: 09-04-2023 End: 09-06-2023 Telephone encounter Keaton Hu DO Work Phone: [facility] - [facility] Start: 09-04-2023 ambulatory [facility] Facility :[facility] Start: 09-04-2023 End: 09-04-2023 Subsequent hospital visit by physician Crystal Marroquin (I-Stat/1.5t) Work Phone: Radiology Comment on above: Rectal cancer (HCC) [C20] Start: 09-03-2023 Telephone encounter Loyda cannon (Pss) Radiology Comment on above: Appointment reminder (Appointment reminder call--spoke with patient--gave directions to the office.) Start: 08-29-2023 End: 08-31-2023 Orders Only Evans Zurita MD Work Phone: Colorectal Surgery Comment on above: Rectal cancer (HCC) (Primary Dx) Care Navigation Start: 08-21-2023 Telephone encounter Katrin whitfield RN Work Phone: [facility] Start: 08-20-2023 End: 08-20-2023 ambulatory KEATON HU [facility] Start: 08-20-2023 End: 08-20-2023 Office outpatient visit 25 minutes Keaton Hu DO Work Phone: [facility] Comment on above: Adenocarcinoma of re ctum ([facility]) (Primary Dx); Depression, unspecified depression type; Hypokalemia due to excessive gastrointestinal loss of potassium; Type 2 diabetes mellitus without complication, without long-term current use of insulin ([facility]) Start: 08-09-2023 Telephone encounter Pauline Samuel ematology/Oncology Start: 08-08-2023 Orders Only Evans rodriguez MD Work Phone: Colorectal Surgery Comment on above: Rectal cancer (HCC) (Primary Dx) Start: 08-07-2023 Telephone encounter Pauline Samuel ematology/Oncology Start: 08-07-2023 End: 08-07-2023 Office outpatient visit 15 minutes Grace Noble MD Work Phone: [facility] Ob[facility] Comment on above: History of carcinoma in situ of vulva (Primary Dx); Atrophic vaginitis; Vulvar lesion; Lichen sclerosus Start: 08-06-2023 Orders Only Evans rodriguez MD Work Phone: Colorectal Surgery Comment on above: Rectal cancer (HCC) (Primary Dx) Start: 08-03-2023 Telephone encounter Pauline Samuel ematology/Oncology Start: 07-27-2023 Refill Keaton Rodriguez Work Phone: [facility] - Family Medicine Comment on above: Mixed hyperlipidemia Start: 07-26-2023 End: 07-26-2023 Patient encounter procedure [facility] Work Phone: Start: 07-25-2023 Telephone encounter Evans pizano MD Work Phone: Colorectal Surgery Start: 07-23-2023 Patient encounter procedure [facility] Provider [facility] Department Start: 07-20-2023 Orders Only Evans rodriguez MD Work Phone: Colorectal Surgery Comment on above: Rectal cancer (HCC) (Primary Dx) Start: 07-19-2023 End: 07-19-2023 Patient encounter procedure Evans Zurita MD Work Phone: Colorectal Surgery Comment on above: Rectal cancer (HCC) (Primary Dx); Vulvar cancer (HCC) Start: 07-18-2023 End: 07-18-2023 Office outpatient new 45 minutes Filomena LOPEZ Work Phone: [facility] - Medical Oncology Comment on above: Carcinoma of vulva, FIGO stage IB ([facility]-H[facility]) (Primary Dx); Vulvar lesion Start: 07-17-2023 End: 07-17-2023 Patient encounter procedure Grace Noble MD Work Phone: [facility] Comment on above: Atrophic vaginitis ( Primary Dx); Vaginal itching; History of carcinoma in situ of vulva Start: 07-16-2023 End: 07-16-2023 Subsequent hospital visit by physician Arrival Time Radiology Work Phone: Radiology Pet [facility] Comment on above: Rectal cancer (HCC) [C20] Start: 07-13-2023 Telephone encounter Pauline JUNIOR H ematology/Oncology Start: 07-11-2023 End: 07-11-2023 Social Work Pauline JUNIOR Hematology/Oncology Comment on above: Rectal adenocarcinom a (HCC) (Primary Dx); Type 2 diabetes mellitus with microalbuminuria, with long-term current use of insulin (HCC) Start: 07-10-2023 End: 02-20-2024 Social Work Pauline JUNIOR Hematology/Oncology Comment on above: Consult Rectal cancer (HCC) (Primary Dx); Malignant neoplasm of rectum (HCC) Start: 07-09-2023 Chart abstracting Arturo spring MD Work Phone: Hematology/Oncology Start: 07-05-2023 Telephone encounter Alyssa Canasadilene Hamilton [facility] - Medical Oncology Start: 07-04-2023 End: 07-04-2023 Office outpatient visit 25 minutes Chasity Diez DO Work Phone: [facility] General Surgery Comment on above: Adenocarcinoma of re ctum (CMS-HCC) (Primary Dx) Start: 07-04-2023 Refill Keaton Rodriguez Work Phone: [facility] Medicine Comment on above: Hypokalemia due to e xcessive gastrointestinal loss of potassium Start: 07-03-2023 Telephone encounter Alyssa Rojas Joy [facility] - Medical Oncology Start: 07-02-2023 Orders Only Chasity walls DO Work Phone: [facility] Sign In Comment on above: Rectal carcinoma (CM S-HCC) (Primary Dx) Start: 06-27-2023 Refill Keaton Rodriguez Work Phone: [facility] - Family Medicine Comment on above: Iron deficiency (Lea nerissa Dx) Start: 06-27-2023 Telephone encounter Sienna Abdi APRN-SOLE SPLITTER Work Phone: [facility] General Surgery Start: 06-25-2023 End: 06-25-2023 ambulatory [facility] Pat Phone Call Provider 1 [facility] - Pre Admit Start: 06-20-2023 End: 06-20-2023 Office outpatient new 45 minutes Chasity Diez DO Work Phone: [facility] General Surgery Comment on above: Rectal mass (Primary Dx); Adenocarcinoma of rectum (CMS-HCC) Start: 06-19-2023 Telephone encounter Latasha Perez RN [facility] Gynecology Oncology Start: 06-18-2023 End: 06-18-2023 Encounter for gynecological examination (general) (routine) without abnormal findings Grace Noble MD Work Phone: [facility] Start: 06-18-2023 End: 06-18-2023 Initial preventive medicine new patient 67yrs&> Grace Noble MD Work Phone: [facility] Comment on above: Encounter for gyneco logical examination (general) (routine) with abnormal findings (Primary Dx); Atrophic vaginitis; Encounter for screening mammogram for malignant neoplasm of breast; Cervical smear, as part of routine gynecological examination; Hx of malignant neoplasm of vulva; Vulvar lesion Start: 06-18-2023 End: 06-18-2023 Patient encounter status Grace Noble MD Work Phone: [facility] Start: 06-14-2023 End: 06-14-2023 ambulatory [facility] Start: 06-12-2023 End: 06-12-2023 ambulatory [facility] Start: 06-12-2023 End: 06-12-2023 Office outpatient visit 25 minutes Keaton Hu DO Work Phone: [facility] Internal Medicine - Family Medicine Comment on above: 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, with long-term current use of insulin ([facility]) (Primary Dx); Essential hypertension; Mixed hyperlipidemia; Adenocarcinoma of rectum ([facility]); Carcinoma of vulva, FIGO stage IB ([facility]) Start: 06-03-2023 Refill Keaton Rodriguez Work Phone: [facility] Internal Medicine - Family Medicine Comment on above: Type 2 diabetes miki itus without complication, with long-term current use of insulin ([facility]) Start: 05-31-2023 Orders Only Keaton Edwards O Work Phone: [facility] Internal Medicine - Family Medicine Comment on above: Adenocarcinoma of re ctum ([facility]) (Primary Dx) Start: 05-29-2023 Telephone encounter [facility]ll[facility] Comment on above: Care Navigation Start: 05-24-2023 End: 05-24-2023 ambulatory [facility] Pat Phone Call Provider 1 [facility] - Pre Admit Start: 05-11-2023 Telephone encounter Yolanda adler [facility] Internal Medicine - Family Medicine Start: 04-29-2023 End: 04-29-2023 ambulatory Briseyda Eastman Other [employer] Other Start: 04-29-2023 Office outpatient vi sit 15 minutes Briseyda Eastman [facility] Start: 09-26-2022 End: 09-26-2022 ambulatory DO Tate Mancera Work Phone: [facility] Work Phone: Start: 09-26-2022 End: 09-26-2022 Patient encounter procedure DO Tate House Work Phone: [facility] Work Phone: Start: 03-28-2022 End: 03-28-2022 ambulatory DO Tate Mancera Work Phone: [facility] Work Phone: Start: 03-28-2022 End: 03-28-2022 Patient encounter procedure DO Tate Mancera Work Phone: [facility] [place] Start: 12-19-2021 End: 12-20-[address] TATE MANCERA Facility:[facility] Start: 12-07-2021 End: 12-08-[address] TATE MANCERA Facility:[facility] Start: 05-23-2021 End: 05-24-[address] TATE MANCERA Facility:[facility] Start: 03-07-2021 End: 03-08-2021 ambulatory HELENA BOWENS Facility:[facility] Start: 02-02-2021 End: 02-03-[address] BLAISE DEGROOT Facility:[facility] Procedures Date Procedure Procedure Detail Performing Clinician Start: 11-05-2024 Comprehensive metabo lic panel Keaton Hu DO Work Phone: Start: 11-05-2024 Lipid panel Keaton parham DO Work Phone: Start: 11-05-2024 Urine albumin quantitative Keaton Hu DO Work Phone: Start: 11-05-2024 Adult depression scr eening assessment Keaton Hu DO Work Phone: Start: 10-30-2024 Adult depression scr eening assessment Keaton Hu DO Work Phone: Start: 07-29-2024 Gluc bld gluc mntr d ev cleared fda spec home use Caridad Jerry Tony DO Work Phone: Start: 07-29-2024 Sigmoidoscopy flx dx w/collj spec br/wa if pfrmd Evans Zurita MD Work Phone: Start: 07-29-2024 Gluc bld gluc mntr d ev cleared fda spec home use Caridad Jerry LopezTony DO Work Phone: Start: 07-01-2024 Mri pelvis w/o & w/c ontrast material Jessica M Winston PA-C Work Phone: Start: 06-23-2024 Ct abdomen & pelvis w/contrast material Jessica Jordyn Winston PA-C Work Phone: Start: 06-23-2024 Ct thorax w/contrast material Jessica M Winston PA-C Work Phone: Start: 06-23-2024 CREATININE BLD Jessica Jordyn Winston PA-C Work Phone: Start: 01-10-2024 Mri pelvis w/o & w/c ontrast material Jessica Jordyn Winston PA-C Work Phone: Start: 12-27-2023 Microalbumin [Mass/v olume] in Urine by Test strip Keaton Hu DO Work Phone: Start: 11-23-2023 Ct thorax w/contrast material Jessica Jordyn Winston PA-C Work Phone: Start: 10-17-2023 Basic metabolic pane l calcium total Arturo Mcdonald MD Work Phone: Start: 10-04-2023 29 EXTRACTION, ERUPT ED TOOTH OR EXPOSED ROOT (ELEVATION AND/OR FORCEPS REMOVAL) Maria De Jesus Willett DMD Work Phone: Start: 09-27-2023 Diabetic retinal eye exam Keaton Hu DO Work Phone: Start: 09-04-2023 Mri pelvis w/o & w/c ontrast material Arturo Mcdonald MD Work Phone: Start: 08-20-2023 Adult depression scr eening assessment Keaton Hu DO Work Phone: Start: 07-16-2023 Ct abdomen & pelvis w/contrast material Arturo Mcdonald MD Work Phone: Start: 07-16-2023 Ct thorax w/contrast material Arturo Mcdonald MD Work Phone: Start: 06-26-2023 Colonoscopy Arturo baker MD Work Phone: Start: 06-12-2023 Adult depression scr eening assessment Keaton Hu DO Work Phone: Start: 05-09-2023 Adult depression scr eening assessment Yolanda Roth [employer] Start: 01-17-2023 Microalbumin [Mass/v olume] in Urine by Test strip Yolanda Roth [employer] Start: 09-26-2022 Plain chest X-ray DO prashant Surya Work Phone: Start: 09-26-2022 Plain X-ray of left shoulder DO Tate [employer] Work Phone: Start: 03-28-2022 MRI of head DO Neul Work Phone: Plan of Treatment Date Care Activity Detail Author Start: 06-26-2033 Screening for malignant neoplasm of colon [facility] Start: 08-21-2029 DTaP,Tdap and Td Vaccines (2 - Td or Tdap) DTaP,Tdap and Td Vaccines (2 - Td or Tdap) [facility] Start: 08-21-2029 Urine microalbumin profile DTaP,Tdap,Td Vaccine (2 - Td or Tdap) [facility] Start: 07-29-2029 Screening for malignant neoplasm of colon Sigmoidoscopy [facility] Start: 11-17-2025 Creatinine measurement Serum Creatinine [facility] Start: 11-05-2025 Adult BMI Screening Adult BMI Screening [facility] Start: 11-05-2025 Creatinine measurement Serum Creatinine [facility] Start: 11-05-2025 Depression Screening Depression Screening [facility] Start: 11-05-2025 Diabetic foot examination Diabetic Foot Exam [facility] Start: 11-05-2025 Fall Risk Screening Fall Risk Screening [facility] Start: 11-05-2025 Hepatitis B screening Urine Albumin:Creatinine Ratio [facility] Start: 11-05-2025 Tobacco Screening Tobacco Screening [facility] Start: 10-30-2025 Adult BMI Screening Adult BMI Screening [facility] Start: 10-30-2025 Depression Screening Depression Screening [facility] Start: 10-30-2025 Fall Risk Screening Fall Risk Screening [facility] Start: 10-30-2025 Medicare Annual Wellness Visit Medicare Annual Wellness Visit [facility] Start: 10-30-2025 Tobacco Screening Tobacco Screening [facility] Start: 08-14-2025 Creatinine measurement Serum Creatinine [facility] Start: 07-08-2025 Adult BMI Screening Adult BMI Screening [facility] Start: 07-08-2025 Creatinine measurement Serum Creatinine [facility] Start: 07-08-2025 Tobacco Screening Tobacco Screening [facility] Start: 06-24-2025 Adult BMI Screening Adult BMI Screening [facility] Start: 06-24-2025 Creatinine measurement Serum Creatinine [facility] Start: 06-24-2025 Tobacco Screening Tobacco Screening [facility] Start: 06-23-2025 Creatinine measurement Serum Creatinine [facility] Start: 06-08-2025 Adult BMI Screening Adult BMI Screening [facility] Start: 06-08-2025 Tobacco Screening Tobacco Screening [facility] Start: 06-04-2025 Creatinine measurement Serum Creatinine [facility] Start: 05-16-2025 Creatinine measurement Serum Creatinine [facility] Start: 05-08-2025 Adult BMI Screening Adult BMI Screening [facility] Start: 05-08-2025 Tobacco Screening Tobacco Screening [facility] Start: 05-07-2025 Hemoglobin A1c measurement HbA1C [facility] Start: 04-10-2025 Creatinine measurement Serum Creatinine [facility] Start: 03-23-2025 End: 03-23-2025 Follow-up encounter 03/23/2025 2:40 PM EST Visit (SP) Office Hematology/Oncology [address] [place] [address] Blu Tellez MD [address] [place] [address] 4 week follow up for MRI and Ct results Hematology/Oncology Comment on above: 4 week follow up for MRI and Ct results Start: 03-23-2025 End: 03-23-2025 Patient encounter procedure 03/23/2025 2:15 PM EST Office Visit [facility] [address] [place] [address] 4 week follow up for MRI and Ct results [facility] Comment on above: 4 week follow up for MRI and Ct results Start: 03-20-2025 Creatinine measurement Serum Creatinine [facility] Start: 03-19-2025 End: 03-19-2025 Patient encounter procedure 03/19/2025 3:20 PM EDT Appointment [facility] [place] [address] [place] [address] MRI Rectum w/wo contrast [facility] MRI Comment on above: MRI Rectum w/wo contrast Start: 03-19-2025 End: 12-17-2025 CT Chest WO contrast CT CHEST WO IVCON Radiology Routine Malignant neoplasm of rectum (HCC) Expected: 03/19/2025 (Approximate), Expires: 12/17/2025 [facility] Comment on above: Expected: 03/19/2025 (Approximate), Expi res: 12/17/2025 Start: 03-19-2025 End: 12-17-2025 MR Pelvis WO contrast MRI RECTUM WO/W IVCON Radiology Routine Malignant neoplasm of rectum (HCC) Expected: 03/19/2025 (Approximate), Expires: 12/17/2025 [facility] Work Phone: Comment on above: Expected: 03/19/2025 (Approximate), Expi res: 12/17/2025 Start: 03-06-2025 Creatinine measurement Serum Creatinine [facility] Start: 03-02-2025 End: 03-02-2025 Patient encounter procedure 03/02/2025 12:45 PM EDT Appointment Radiology [facility] [address] [place] [address] Ct Chest without contrast [facility]iology [facility] CT Comment on above: Ct Chest without contrast Start: 02-05-2025 End: 02-05-2025 Patient encounter procedure 02/05/2025 1:30 PM EDT Office Visit [facility] - Family Medicine [address] [place] [id number] Keaton Hu DO [address] [place] [address] [facility] - [facility] Start: 01-30-2025 Complete blood count Hemoglobin/Hematocrit [facility] Start: 01-30-2025 Creatinine measurement Serum Creatinine [facility] Start: 01-19-2025 Influenza vaccination [facility] Start: 01-14-2025 BP Controlled (<130/80) BP Controlled (<130/80) [facility] Start: 12-26-2024 Adult BMI Screening Adult BMI Screening [facility] Start: 12-26-2024 Creatinine measurement Serum Creatinine [facility] Start: 12-26-2024 Hepatitis B screening Urine Albumin:Creatinine Ratio [facility] Start: 12-26-2024 Tobacco Screening Tobacco Screening [facility] Start: 12-26-2024 Urine screening for protein Urine Microalbumin [facility] Start: 11-20-2024 Complete blood count Hemoglobin/Hematocrit [facility] Start: 11-20-2024 Creatinine measurement Serum Creatinine [facility] Start: 11-17-2024 End: 11-17-2024 Follow-up encounter 11/17/2024 1:40 PM EDT Visit (SP) Office Hematology/Oncology [address] [place] [address] lBu Tellez MD [address] [place] [address] FOLLOW UP AFTER MRI - this day due to MAYANK being on vacation Hematology/Oncology Comment on above: FOLLOW UP AFTER MRI - this day due to K being on vacation Start: 11-17-2024 End: 11-17-2024 Patient encounter procedure 11/17/2024 1:00 PM EDT Office Visit [facility] [address] [place] [address] FOLLOW UP AFTER MRI [facility] Comment on above: FOLLOW UP AFTER MRI Start: 11-14-2024 End: 11-14-2024 Patient encounter procedure 11/14/2024 3:20 PM EDT Appointment [facility] [place] [place] [address] [place] [address] MRI RECTUM WWO [facility] MRI Comment on above: MRI RECTUM WWO Start: 11-14-2024 End: 08-14-2025 Carcinoembryonic Ag [Mass/volume] in Serum or Plasma CARCINOEMBRYONIC ANTIGEN Lab Routine Malignant neoplasm of rectum (HCC) Type 2 diabetes mellitus with other specified complication, with long-term current use of insulin (HCC) Other depression Wound cellulitis Rectal cancer (HCC) Stage 3a chronic kidney disease (HCC) Expected: 11/14/2024, Expires: 08/14/2025 [facility] Comment on above: Expected: 11/14/2024, Expires: Start: 11-14-2024 End: 08-14-2025 CBC W Auto Differential panel - Blood COMPLETE BLOOD COUNT AND DIFFERENTIAL Lab Routine Malignant neoplasm of rectum (HCC) Type 2 diabetes mellitus with other specified complication, with long-term current use of insulin (HCC) Other depression Wound cellulitis Rectal cancer (HCC) Stage 3a chronic kidney disease (HCC) Expected: 11/14/2024, Expires: 08/14/2025 [facility] Comment on above: Expected: 11/14/2024, Expires: Start: 11-14-2024 End: 08-14-2025 Cobalamin (Vitamin B12) [Mass/volume] in Serum or Plasma VITAMIN B12 Lab Routine Malignant neoplasm of rectum (HCC) Type 2 diabetes mellitus with other specified complication, with long-term current use of insulin (HCC) Other depression Wound cellulitis Rectal cancer (HCC) Stage 3a chronic kidney disease (HCC) Expected: 11/14/2024, Expires: 08/14/2025 [facility] Comment on above: Expected: 11/14/2024, Expires: Start: 11-14-2024 End: 08-14-2025 Comprehensive metabolic 2000 panel - Serum or Plasma COMPREHENSIVE METABOLIC PANEL Lab Routine Malignant neoplasm of rectum (HCC) Type 2 diabetes mellitus with other specified complication, with long-term current use of insulin (HCC) Other depression Wound cellulitis Rectal cancer (HCC) Stage 3a chronic kidney disease (HCC) Expected: 11/14/2024, Expires: 08/14/2025 [facility] Comment on above: Expected: 11/14/2024, Expires: Start: 11-14-2024 End: 08-14-2025 Ferritin [Mass/volume] in Serum or Plasma FERRITIN Lab Routine Malignant neoplasm of rectum (HCC) Type 2 diabetes mellitus with other specified complication, with long-term current use of insulin (HCC) Other depression Wound cellulitis Rectal cancer (HCC) Stage 3a chronic kidney disease (HCC) Expected: 11/14/2024, Expires: 08/14/2025 [facility] Comment on above: Expected: 11/14/2024, Expires: Start: 11-14-2024 End: 08-14-2025 Folate [Mass/volume] in Serum or Plasma FOLATE, SERUM Lab Routine Malignant neoplasm of rectum (HCC) Type 2 diabetes mellitus with other specified complication, with long-term current use of insulin (HCC) Other depression Wound cellulitis Rectal cancer (HCC) Stage 3a chronic kidney disease (HCC) Expected: 11/14/2024, Expires: 08/14/2025 [facility] Comment on above: Expected: 11/14/2024, Expires: Start: 11-14-2024 End: 08-14-2025 Iron and Iron binding capacity panel - Serum or Plasma IRON AND TIBC Lab Routine Malignant neoplasm of rectum (HCC) Type 2 diabetes mellitus with other specified complication, with long-term current use of insulin (HCC) Other depression Wound cellulitis Rectal cancer (HCC) Stage 3a chronic kidney disease (HCC) Expected: 11/14/2024, Expires: 08/14/2025 [facility] Comment on above: Expected: 11/14/2024, Expires: Start: 11-14-2024 End: 09-13-2025 MR Pelvis WO contrast [facility] Work Phone: Comment on above: Expected: 11/14/2024 (Approximate), Expi res: 09/13/2025 Start: 11-06-2024 Hemoglobin A1c measurement HbA1C [facility] Start: 11-05-2024 End: 11-05-2024 Patient encounter procedure 11/05/2024 1:00 PM EDT Office Visit [facility] [address] [place] [phone] Keaton Hu DO [address] [place] [address] [facility] Start: 10-30-2024 Complete blood count Hemoglobin/Hematocrit [facility] Start: 10-30-2024 Creatinine measurement Serum Creatinine [facility] Start: 10-30-2024 End: 10-30-2025 DBT Breast - bilateral screening Mammography screening bilateral with CAD Imaging Routine Encounter for screening mammogram for malignant neoplasm of breast Expected: 10/30/2024, Expires: 10/30/2025 [facility] Work Phone: Comment on above: Expected: 10/30/2024, Expires: Start: 10-27-2024 Adult BMI Screening Adult BMI Screening [facility] Start: 10-27-2024 Tobacco Screening Tobacco Screening [facility] Start: 10-15-2024 BP Controlled (<130/80) BP Controlled (<130/80) [facility] Start: 09-26-2024 Glaucoma screening Diabetic Ophthalmology Exam [facility] Start: 09-13-2024 Adult BMI Screening Adult BMI Screening [facility] Start: 09-13-2024 Tobacco Screening Tobacco Screening [facility] Start: 08-24-2024 End: 11-23-2024 TYPE + SCREEN TYPE + SCREEN Blood Bank Routine Rectal cancer (HCC) Expected: 08/24/2024, Expires: 11/23/2024 [facility] Comment on above: Expected: 08/24/2024, Expires: Start: 08-19-2024 Adult BMI Screening Adult BMI Screening [facility] Start: 08-19-2024 Depression Screening Depression Screening [facility] Start: 08-19-2024 Fall Risk Screening Fall Risk Screening [facility] Start: 08-19-2024 Tobacco Screening Tobacco Screening [facility] Start: 08-14-2024 End: 08-14-2024 ambulatory 08/14/2024 1:40 PM EDT Visit (SP) Office Hematology/Oncology [address] [place] [address] [place] [address] Blu Tellez MD [address] [place] [address] LM to reschedule appt and labs for 2 months later, per phone encounter. Hematology/Oncology Comment on above: LM to reschedule appt and labs for 2 months later, per phone encounter. Start: 08-14-2024 End: 08-14-2024 Follow-up encounter 08/14/2024 1:40 PM EDT Visit (SP) Office Hematology/Oncology [address] [place] [address] [place] [address] Blu Tellez MD [address] [place] [address] follow up with lab after surgery with Dr Zurita Hematology/Oncology Comment on above: follow up with lab after surgery with Dr Zurita Start: 08-14-2024 End: 08-14-2024 Patient encounter procedure [facility] Comment on above: follow up with lab after surgery with Dr Zurita LM to reschedule appt and labs for 2 months later, per phone encounter. Start: 08-06-2024 Adult BMI Screening Adult BMI Screening [facility] Start: 08-06-2024 Tobacco Screening Tobacco Screening [facility] Start: 08-05-2024 End: 08-05-2024 Admission to same day surgery center 08/05/2024 7:30 AM EDT - 08/05/2024 1:10 PM EDT Surgery [facility] Operating Room [address] [place] [id number] Evans Zurita [place] [id number] [place] [id number] ROBOTIC LAPAROSCOPY SURGICAL COLECTOMY PARTIAL W/ ANASTOMOSIS W/ COLOPROCTOSTOMY [facility] Operating Room Comment on above: ROBOTIC LAPAROSCOPY SURGICAL COLECTOMY P ARTIAL W/ ANASTOMOSIS W/ COLOPROCTOSTOMY Start: 08-05-2024 End: 08-05-2024 Laps colectomy prtl w/colopxtstmy lw anast ROBOTIC LAPAROSCOPY SURGICAL COLECTOMY PARTIAL W/ ANASTOMOSIS W/ COLOPROCTOSTOMY Rectal cancer (HCC) 08/05/2024 7:30 AM EDT [facility] Start: 08-05-2024 End: 08-05-2024 Prctect cmbn pull-thru w/rsvr w/ntrstm COLOSTOMY DIVERTING Rectal cancer (HCC) 08/05/2024 7:30 AM EDT [facility] OR Start: 08-05-2024 Subsequent hospital visit by physician 08/05/2024 7:30 AM EDT Hospital Encounter [facility] Operating Room [address] [place] [id number] Evans Zurita MD [id number] [place] [id number] Rectal cancer (HCC) [C20] [facility] Operating Room Comment on above: Rectal cancer (HCC) [C20] Start: 07-31-2024 Adult BMI Screening Adult BMI Screening vozero Start: 07-31-2024 Statin Use: Diabetic Statin Use: Diabetic vozero Start: 07-30-2024 End: 07-30-2024 Patient encounter procedure 07/30/2024 2:40 PM EDT PAT Pre Anesthesia [address] [place] [address] chart revwd - 3/18 -ROBOTIC LAPAROSCOPY SURGICAL COLECTOMY PARTIAL W/ ANASTOMOSIS W/ COLOPROCTOSTOMY [79247] - Abdomen - N/A Pre Anesthesia Comment on above: chart revwd - 08/05 -ROBOTIC LAPAROSCOPY SURGICAL COLECTOMY PARTIAL W/ ANASTOMOSIS W/ COLOPROCTOSTOMY [[id number]] - Abdomen - N/A Start: 07-29-2024 Tobacco Screening Tobacco Screening [facility] Start: 07-29-2024 End: 07-29-2024 Patient encounter procedure 07/29/2024 11:30 AM EDT Appointment [facility] Endoscopy - ENDO [address] [place] [address] [place] [address] [place] [address] sigmoidoscopy [facility] Endoscopy - ENDO Comment on above: sigmoidoscopy Start: 07-21-2024 End: 07-21-2024 Follow-up encounter 07/21/2024 3:40 PM [facility] Colorectal Surgery [facility] [address] [place], [place] [id number] [place] [address] [place], [place] [id number] follow up rectal cancer Colorectal Surgery Comment on above: follow up rectal cancer Start: 07-21-2024 End: 10-20-2024 CBC panel - Blood by Automated count COMPLETE BLOOD COUNT Lab Routine Rectal cancer (HCC) Expected: 07/21/2024, Expires: 10/20/2024 [facility] Comment on above: Expected: 07/21/2024, Expires: Start: 07-21-2024 End: 10-20-2024 Comprehensive metabolic 2000 panel - Serum or Plasma COMPREHENSIVE METABOLIC PANEL Lab Routine Rectal cancer (HCC) Expected: 07/21/2024, Expires: 10/20/2024 [facility] Comment on above: Expected: 07/21/2024, Expires: Start: 07-18-2024 Adult BMI Screening Adult BMI Screening [facility] Start: 07-17-2024 Adult BMI Screening Adult BMI Screening [facility] Start: 07-17-2024 Tobacco Screening Tobacco Screening [facility] Start: 07-11-2024 BP Controlled (<130/80) BP Controlled (<130/80) [facility] Start: 07-08-2024 End: 07-08-2024 ambulatory 07/08/2024 1:20 PM EST Visit (SP) Office Hematology/Oncology [address] [place] [address] Blu Tellez MD [address] [place] [address] discuss treatment plan per Nurse Hematology/Oncology Comment on above: discuss treatment plan per Nurse Start: 07-04-2024 Adult BMI Screening Adult BMI Screening [facility] Start: 07-04-2024 Tobacco Screening Tobacco Screening [facility] Start: 07-03-2024 End: 07-03-2024 Patient encounter procedure 07/03/2024 2:20 PM EST Office Visit [facility] [address] [place] [address] [facility] Start: 07-01-2024 End: 07-01-2024 Patient encounter procedure 07/01/2024 1:40 PM EST Appointment Radiology [address] [place] [address] MRI Rectum w/wo [facility] Radiology Comment on above: MRI Rectum w/wo JESSICA Eubanks Start: 06-28-2024 Hemoglobin A1c measurement HbA1C [facility] Start: 06-26-2024 Adult BMI Screening Adult BMI Screening [facility] Start: 06-26-2024 Tobacco Screening Tobacco Screening [facility] Start: 06-25-2024 End: 06-25-2024 Follow-up encounter Hematology/Oncology Comment on above: 3 week follow up lab chemotx [facility]OX Start: 06-25-2024 End: 06-25-2024 Patient encounter procedure 06/25/2024 11:15 AM EST Office Visit [facility] [address] [place] [address] 3 week follow up lab chemotx CAPOX [facility] Comment on above: 3 week follow up lab chemotx [facility] Start: 06-23-2024 End: 09-22-2024 CREATININE BLD CREATININE BLD Lab Routine Rectal cancer (HCC) Expected: 06/23/2024, Expires: 09/22/2024 [facility] Work Phone: Comment on above: Expected: 06/23/2024, Expires: Start: 06-23-2024 End: 06-23-2024 Patient encounter procedure 06/23/2024 10:15 AM EST Appointment Radiology Pet CT [address] [place] [address] Ct CAP wiht contrast Radiology Pet CT Comment on above: Ct CAP wiht contrast Start: 06-20-2024 Adult BMI Screening Adult BMI Screening [facility] Start: 06-20-2024 Tobacco Screening Tobacco Screening [facility] Start: 06-19-2024 End: 06-19-2024 Patient encounter procedure 06/19/2024 8:15 AM EST Appointment Radiology Pet CT [address] [place] [address] Ct CAP wiht contrast Radiology Pet CT Comment on above: Ct CAP wiht contrast Start: 06-18-2024 Adult BMI Screening Adult BMI Screening [facility] Start: 06-18-2024 Tobacco Screening Tobacco Screening [facility] Start: 06-12-2024 Adult BMI Screening Adult BMI Screening [facility] Start: 06-12-2024 Depression Screening Depression Screening [facility] Start: 06-12-2024 Fall Risk Screening Fall Risk Screening [facility] Start: 06-12-2024 Tobacco Screening Tobacco Screening [facility] Start: 06-04-2024 End: 09-03-2024 Carcinoembryonic Ag [Mass/volume] in Serum or Plasma CARCINOEMBRYONIC ANTIGEN Lab Routine Rectal cancer (HCC) Wound cellulitis Type 2 diabetes mellitus with other specified complication, with long-term current use of insulin (HCC) Expected: 06/04/2024, Expires: 09/03/2024 [facility] Comment on above: Expected: 06/04/2024, Expires: Start: 06-04-2024 End: 09-03-2024 CBC W Auto Differential panel - Blood COMPLETE BLOOD COUNT AND DIFFERENTIAL Lab Routine Rectal cancer (HCC) Wound cellulitis Type 2 diabetes mellitus with other specified complication, with long-term current use of insulin (HCC) Expected: 06/04/2024, Expires: 09/03/2024 [facility] Comment on above: Expected: 06/04/2024, Expires: Start: 06-04-2024 End: 09-03-2024 Comprehensive metabolic 2000 panel - Serum or Plasma COMPREHENSIVE METABOLIC PANEL Lab Routine Rectal cancer (HCC) Wound cellulitis Type 2 diabetes mellitus with other specified complication, with long-term current use of insulin (HCC) Expected: 06/04/2024, Expires: 09/03/2024 [facility] Comment on above: Expected: 06/04/2024, Expires: Start: 05-25-2024 Adult BMI Screening Adult BMI Screening [facility] Start: 05-25-2024 Tobacco Screening Tobacco Screening [facility] Start: 05-23-2024 End: 08-22-2024 CBC W Auto Differential panel - Blood COMPLETE BLOOD COUNT AND DIFFERENTIAL Lab Routine Rectal cancer (HCC) Expected: 05/23/2024 (Approximate), Expires: 08/22/2024 [facility] Work Phone: Comment on above: Expected: 05/23/2024 (Approximate), Expi res: 08/22/2024 Start: 05-23-2024 End: 08-22-2024 Comprehensive metabolic 2000 panel - Serum or Plasma COMPREHENSIVE METABOLIC PANEL Lab Routine Rectal cancer (HCC) Expected: 05/23/2024 (Approximate), Expires: 08/22/2024 [facility] Comment on above: Expected: 05/23/2024 (Approximate), Expi res: 08/22/2024 Start: 05-23-2024 End: 05-23-2024 Follow-up encounter Hematology/Oncology Comment on above: follow up and chemotx CAPOX (treatment h eld 05/16) Start: 05-23-2024 End: 05-23-2024 Patient encounter procedure 05/23/2024 12:45 PM EST Office Visit [facility] [address] [place] [address] follow up and chemotx CAPOX (treatment held 05/16) [facility] Comment on above: follow up and chemotx CAPOX (treatment h eld 05/16) Start: 05-21-2024 Advance Directive Discussion Advance Directive Discussion [facility] Start: 05-21-2024 Medicare Advantage Annual Wellness Visit Medicare Advantage Annual Wellness Visit [facility] Start: 05-16-2024 End: 05-16-2024 Follow-up encounter Hematology/Oncology Comment on above: 2 week lab follow up and chemotx [facility]OX Start: 05-16-2024 End: 05-16-2024 Patient encounter procedure 05/16/2024 12:45 PM EST Office Visit [facility] [address] [place] [address] 2 week lab follow up and chemotx CAPOX [facility] Comment on above: 2 week lab follow up and chemotx [facility]OX Start: 05-09-2024 Adult BMI Screening Adult BMI Screening [facility] Start: 05-09-2024 Depression Screening Depression Screening [facility] Start: 05-09-2024 Fall Risk Screening Fall Risk Screening [facility] Start: 05-09-2024 Tobacco Screening Tobacco Screening [facility] Start: 05-08-2024 End: 05-08-2024 Patient encounter procedure 05/08/2024 3:00 PM EST Office Visit [facility] [address] [place] [address] Keaton Hu, [address] [place] [address] [facility] Start: 04-24-2024 End: 04-24-2024 Follow-up encounter Hematology/Oncology Comment on above: 2 week lab follow up and chemotx CAPOX Start: 04-24-2024 End: 04-24-2024 Patient encounter procedure 04/24/2024 12:45 PM EST Office Visit [facility] [address] [place] [address] 2 week lab follow up and chemotx CAPOX [facility] Comment on above: 2 week lab follow up and chemotx CAPOX Start: 04-10-2024 End: 04-10-2024 Follow-up encounter Hematology/Oncology Comment on above: lab follow up and CAPOX Start: 04-10-2024 End: 04-10-2024 Patient encounter procedure 04/10/2024 12:45 PM EST Office Visit [facility] [address] [place] [address] lab follow up and CAPOX [facility] Comment on above: lab follow up and CAPOX Start: 03-20-2024 End: 03-20-2024 Follow-up encounter Hematology/Oncology Comment on above: lab follow up and CAPOX Start: 03-20-2024 End: 03-20-2024 Patient encounter procedure 03/20/2024 12:45 PM EDT Office Visit [facility] [address] [place] [address] lab follow up and CAPOX [facility] Comment on above: lab follow up and CAPOX Start: 03-06-2024 End: 03-06-2024 Follow-up encounter Hematology/Oncology Comment on above: 2 week lab follow up and CAPOX Start: 03-06-2024 End: 03-06-2024 Patient encounter procedure 03/06/2024 1:00 PM EDT Office Visit [facility] [address] [place] [address] 2 week lab follow up and CAPOX [facility] Comment on above: 2 week lab follow up and CAPOX Start: 03-04-2024 End: 03-04-2024 Patient encounter procedure 03/04/2024 1:30 PM EDT Office Visit [facility] [address] [place] [address] [facility] Start: 02-28-2024 Medicare Annual Wellness Visit Medicare Annual Wellness Visit [facility] Start: 02-21-2024 End: 02-21-2024 Follow-up encounter Hematology/Oncology Comment on above: 2 week lab follow up and CAPOX Start: 02-21-2024 End: 02-21-2024 Patient encounter procedure 02/21/2024 12:45 PM EDT Office Visit [facility] [address] [place] [address] 2 week lab follow up and CAPOX [facility] Comment on above: 2 week lab follow up and CAPOX Start: 02-14-2024 End: 02-14-2024 Follow-up encounter Hematology/Oncology Comment on above: 2 week lab follow up and CAPOX Start: 02-14-2024 End: 02-14-2024 Patient encounter procedure 02/14/2024 1:15 PM EDT Office Visit [facility] [address] [place] [address] 2 week lab follow up and CAPOX [facility] Comment on above: 2 week lab follow up and CAPOX Start: 02-13-2024 OR Infusaport Insertion/Removal (Not Applicable) OR Infusaport Insertion/Removal (Not Applicable) [facility] Start: 02-13-2024 End: 02-13-2024 [facility] Start: 01-31-2024 Hemoglobin A1c measurement HbA1C [facility] Start: 01-31-2024 End: 01-31-2024 Nursing evaluation of patient and report 01/31/2024 2:00 PM EDT Nurse Visit Hematology/Oncology [address] [place] [address] Little Bowens, RN [address] [place] [address] Per Evelyne Will Do While Pt In Treatment Hematology/Oncology Comment on above: Per Evelyne Will Do While Pt In Treatmen t Start: 01-31-2024 End: 01-31-2024 Follow-up encounter Hematology/Oncology Comment on above: lab follow up and CAPOX Start: 01-31-2024 End: 01-31-2024 Patient encounter procedure 01/31/2024 1:00 PM EDT Office Visit [facility] [address] [place] [address] lab follow up and CAPOX [facility] Comment on above: lab follow up and CAPOX Start: 01-30-2024 End: 01-30-2024 Nursing evaluation of patient and report 01/30/2024 1:00 PM EDT Nurse Visit Hematology/Oncology [address] [place] [address] Little Bowens, RN [address] [place] [address] CAPOX // pt has transportation issues Hematology/Oncology Comment on above: CAPOX // pt has transportation issues Start: 01-29-2024 End: 01-29-2024 Patient encounter procedure 01/29/2024 2:00 PM EDT Procedure visit [facility] [address] [place] [address] Grace Noble MD [address] [place], [place] [id number] [facility] Start: 01-20-2024 Covid-19 Vaccine ( season) Covid-19 Vaccine ( season) [facility] Start: 01-20-2024 Influenza vaccination [facility] Start: 01-18-2024 Diabetic foot examination Diabetic Foot Exam [facility] Start: 01-18-2024 Hepatitis B screening Urine Albumin:Creatinine Ratio [facility] Start: 01-18-2024 Urine screening for protein Urine Microalbumin [facility] Start: 01-15-2024 End: 01-15-2024 ambulatory 01/15/2024 4:30 PM EDT Visit (SP) Office Hematology/Oncology [address] [place] [address] Blu Tellez MD [address] [place] [address] Talley to discuss treatment options per phone encounter Hematology/Oncology Comment on above: KELECHI with Dr Talley to discuss treatment opt ions per phone encounter Start: 01-10-2024 End: 01-10-2024 Patient encounter procedure 01/10/2024 2:00 PM EDT Appointment Radiology [address] [place] [address] MRI RECTUM WO/W IVCON Radiology Comment on above: MRI RECTUM WO/W IVCON Start: 01-02-2024 End: 01-02-2024 ambulatory 01/02/2024 3:30 PM EDT Visit (SP) Office Hematology/Oncology [address] [place] [address] Blu Tellez MD [address] [place] [address] Talley Hematology/Oncology Comment on above: KELECHI with Dr Talley Start: 12-27-2023 End: 12-27-2023 Patient encounter procedure [facility] Start: 12-24-2023 End: 12-24-2023 Patient encounter procedure 12/24/2023 2:40 PM EDT Office Visit Colorectal Surgery [address] [place] [address] [place] [address] [place] [address] Est patient, rectal cancer. MRI of Rectum at [facility] on 12-11-23 Colorectal Surgery Comment on above: Est patient, rectal cancer. MRI of Rectu m at [facility] on 12-11-23 Start: 12-11-2023 End: 12-11-2023 Patient encounter procedure 12/11/2023 6:20 PM EDT Appointment MRI Q [address] [address] MRI of Rectal with and without contrast ref by JESSICA Eubanks MRI Q Comment on above: MRI of Rectal with and without contrast ref by JESSICA Eubanks Start: 12-11-2023 Hemoglobin A1c measurement HbA1C [facility] Start: 11-23-2023 End: 11-23-2023 Patient encounter procedure 11/23/2023 1:30 PM EDT Appointment Radiation Oncology [address] [place] [address] Rectal Boost do not charge CBCT Radiation Oncology Comment on above: Rectal Boost do not charge CBCT Start: 11-23-2023 End: 11-23-2023 Patient encounter procedure Radiation Oncology Comment on above: Rectal Boost do not charge CBCT Ct Chest with contra sta Start: 11-21-2023 End: 11-21-2023 Follow-up encounter 11/21/2023 2:00 PM EDT Visit (SP) Office Hematology/Oncology [address] [place] [address] Jessica Eubanks, PA-C [address] [place] [address] 3 week follow up with Jessica and lab Hematology/Oncology Comment on above: 3 week follow up with Jessica and lab Start: 11-21-2023 End: 11-21-2023 Patient encounter procedure Radiation Oncology Comment on above: Rectal Boost do not charge CBCT 3 week follow up wit h Jessica and lab rectum d/n charge CB CT lab1 jessica 2pm remind pt time11/22 Start: 11-20-2023 End: 11-20-2023 Patient encounter procedure Radiation Oncology Comment on above: pt starting rectal boost Rectal Boost do not charge CBCT Start: 11-19-2023 End: 11-19-2023 Patient encounter procedure Radiation Oncology Comment on above: Rectal do not charge CBCT Location: [facility] Start: 11-16-2023 End: 11-16-2023 Patient encounter procedure 11/16/2023 1:30 PM EDT Appointment Radiation Oncology [address] [place] [address] Rectal do not charge CBCT Radiation Oncology Comment on above: Rectal do not charge CBCT Start: 11-15-2023 End: 11-15-2023 Patient encounter procedure Radiation Oncology Comment on above: Rectal do not charge CBCT Rectal do not charge CBCT - ask pt to come in early on 11/22 Start: 11-14-2023 End: 11-14-2023 Patient encounter procedure 11/14/2023 1:30 PM EDT Appointment Radiation Oncology [address] [place] [address] Rectal do not charge CBCT Radiation Oncology Comment on above: Rectal do not charge CBCT Start: 11-13-2023 End: 11-13-2023 Patient encounter procedure Radiation Oncology Comment on above: Rectal Rectal do not charge CBCT Start: 11-12-2023 End: 11-12-2023 Patient encounter procedure Radiation Oncology Comment on above: Rectal Rectal do not charge CBCT Location: [facility] Start: 11-09-2023 End: 11-09-2023 Patient encounter procedure Radiation Oncology Comment on above: Rectal Rectal do not charge CBCT Start: 11-08-2023 End: 11-08-2023 Patient encounter procedure Radiation Oncology Comment on above: Rectal Rectal do not charge CBCT Start: 11-07-2023 End: 11-07-2023 Patient encounter procedure Radiation Oncology Comment on above: Rectal Rectal do not charge CBCT Start: 11-06-2023 End: 11-06-2023 Patient encounter procedure Radiation Oncology Comment on above: Rectal Rectal do not charge CBCT Start: 11-05-2023 End: 11-05-2023 Patient encounter procedure Radiation Oncology Comment on above: Rectal Rectal do not charge CBCT ENG PATIENT Start: 11-02-2023 End: 11-02-2023 Patient encounter procedure Radiation Oncology Comment on above: Rectal Rectal do not charge CBCT Start: 11-01-2023 End: 11-01-2023 Patient encounter procedure Radiation Oncology Comment on above: Rectal Rectal do not charge CBCT Start: 10-31-2023 End: 10-31-2023 Follow-up encounter 10/31/2023 2:30 PM EDT Visit (SP) Office Hematology/Oncology [address] [place] [address] Jessica Eubanks, PANicholeC [address] [place] [address] 2 week follow up with Jessica and lab Hematology/Oncology Comment on above: 2 week follow up with Jessica and dilan Start: 10-31-2023 End: 01-30-2024 CBC W Auto Differential panel - Blood COMPLETE BLOOD COUNT AND DIFFERENTIAL Lab Routine Rectal cancer (HCC) Type 2 diabetes mellitus with other specified complication, with long-term current use of insulin (HCC) Expected: 10/31/2023, Expires: 01/30/2024 [facility] Comment on above: Expected: 10/31/2023, Expires: Start: 10-31-2023 End: 01-30-2024 Comprehensive metabolic 2000 panel - Serum or Plasma COMPREHENSIVE METABOLIC PANEL Lab Routine Rectal cancer (HCC) Type 2 diabetes mellitus with other specified complication, with long-term current use of insulin (HCC) Expected: 10/31/2023, Expires: 01/30/2024 [facility] Work Phone: Comment on above: Expected: 10/31/2023, Expires: Start: 10-31-2023 End: 10-31-2023 Patient encounter procedure Radiation Oncology Comment on above: Rectal Rectal do not charge CBCT 2 week follow up wit h Jessica and lab Rectal do not charge CBCT - 215 LAB, 230 JESSICA Start: 10-30-2023 End: 01-29-2024 CBC W Auto Differential panel - Blood COMPLETE BLOOD COUNT AND DIFFERENTIAL Lab Routine Rectal cancer (HCC) Expected: 10/30/2023 (Approximate), Expires: 01/29/2024 [facility] Work Phone: Comment on above: Expected: 10/30/2023 (Approximate), Expi res: 01/29/2024 Start: 10-30-2023 End: 01-29-2024 Comprehensive metabolic 2000 panel - Serum or Plasma COMPREHENSIVE METABOLIC PANEL Lab Routine Rectal cancer (HCC) Expected: 10/30/2023 (Approximate), Expires: 01/29/2024 [facility] Comment on above: Expected: 10/30/2023 (Approximate), Expi res: 01/29/2024 Start: 10-30-2023 End: 10-30-2023 Patient encounter procedure Radiation Oncology Comment on above: Rectal Rectal do not charge CBCT Start: 10-29-2023 End: 10-29-2023 Patient encounter procedure Radiation Oncology Comment on above: Rectal Rectal do not charge CBCT Location: [facility] Start: 10-26-2023 End: 10-26-2023 Patient encounter procedure Radiation Oncology Comment on above: Rectal Rectal do not charge CBCT Start: 10-25-2023 End: 10-25-2023 Patient encounter procedure Radiation Oncology Comment on above: Rectal Rectal do not charge CBCT Start: 10-24-2023 End: 10-24-2023 Patient encounter procedure Radiation Oncology Comment on above: Rectal Rectal do not charge CBCT Start: 10-23-2023 End: 10-23-2023 Patient encounter procedure Radiation Oncology Comment on above: Rectal Rectal do not charge CBCT Start: 10-22-2023 End: 10-22-2023 Patient encounter procedure Radiation Oncology Comment on above: Rectal Rectal do not charge CBCT Location: [facility] Start: 10-19-2023 End: 10-19-2023 Patient encounter procedure Radiation Oncology Comment on above: Rectal Rectal do not charge CBCT Start: 10-18-2023 End: 10-18-2023 Patient encounter procedure Radiation Oncology Comment on above: Rectal Rectal do not charge CBCT Start: 10-17-2023 End: 10-17-2023 Patient encounter procedure Radiation Oncology Comment on above: Rectal Rectal do not charge CBCT Start: 10-16-2023 End: 10-16-2023 Follow-up encounter 10/16/2023 3:15 PM EDT Visit (SP) Office Hematology/Oncology [address] [place] [address] [place] [address] Arturo Mcdonald MD [address] [place] [address] [place] [address] follow up with lab / XRT pt Hematology/Oncology Comment on above: follow up with lab / XRT pt Start: 10-16-2023 End: 10-16-2023 Patient encounter procedure Radiation Oncology Comment on above: Rectal NEW START RECTAL Rectal- fix sched, t [place]?- no change CBCT daily follow up with lab / XRT pt Start: 10-12-2023 End: 10-12-2023 Patient encounter procedure 10/12/2023 1:30 PM EDT Appointment Radiation Oncology [address] [place] [address] [place] [address] Rectal Radiation Oncology Comment on above: Rectal Start: 10-11-2023 End: 10-11-2023 Patient encounter procedure 10/11/2023 1:30 PM EDT Appointment Radiation Oncology [address] [place] [address] Rectal Radiation Oncology Comment on above: Rectal Start: 10-10-2023 End: 10-10-2023 Patient encounter procedure 10/10/2023 1:30 PM EDT Appointment Radiation Oncology [address] [place] [address] Rectal Radiation Oncology Comment on above: Rectal Start: 10-09-2023 End: 10-09-2023 Patient encounter procedure 10/09/2023 1:30 PM EDT Appointment Radiation Oncology [address] [place] [address] Rectal Radiation Oncology Comment on above: Rectal Start: 10-08-2023 End: 10-08-2023 Patient encounter procedure 10/08/2023 1:30 PM EDT Appointment Radiation Oncology [address] [place] [address] Rectal Radiation Oncology Comment on above: Rectal Start: 10-05-2023 End: 01-04-2024 CBC W Auto Differential panel - Blood COMPLETE BLOOD COUNT AND DIFFERENTIAL Lab Routine Rectal adenocarcinoma (HCC) Expected: 10/05/2023, Expires: 01/04/2024 [facility] Comment on above: Expected: 10/05/2023, Expires: Start: 10-05-2023 End: 01-04-2024 Comprehensive metabolic 2000 panel - Serum or Plasma COMPREHENSIVE METABOLIC PANEL Lab Routine Rectal adenocarcinoma (HCC) Expected: 10/05/2023, Expires: 01/04/2024 [facility] Work Phone: Comment on above: Expected: 10/05/2023, Expires: 4 Start: 10-05-2023 End: 10-05-2023 Patient encounter procedure 10/05/2023 1:30 PM EDT Appointment Radiation Oncology [address] [place] [address] Rectal Radiation Oncology Comment on above: Rectal Start: 10-04-2023 End: 10-04-2023 Patient encounter procedure Radiation Oncology Comment on above: Rectal PRE RAD YUMIKO outpatie nt consult placed 09/26/23 Start: 10-03-2023 End: 10-03-2023 Patient encounter procedure Radiation Oncology Comment on above: Rectal Start: 10-02-2023 End: 10-02-2023 Patient encounter procedure 10/02/2023 3:00 PM EDT Appointment Radiation Oncology [address] [place] [address] Rectal Radiation Oncology Comment on above: Rectal Start: 10-01-2023 End: 10-01-2023 Patient encounter procedure Radiation Oncology Comment on above: NEW START RECTUM NEW START PRONE RECT UM - WOULD LIKE EARLY AFTERNOON Start: 10-01-2023 End: 10-01-2023 Follow-up encounter Hematology/Oncology Comment on above: 2 week follow up with lab chemotx auth not needed pe r auth chat 2 week follow up with lab and chemotx MEDS?? Start: 10-01-2023 End: 10-01-2023 Patient encounter procedure 10/01/2023 9:15 AM EDT Office Visit [facility] [address] [address] 2 week follow up with lab chemotx [facility] Comment on above: 2 week follow up with lab chemotx Start: 09-25-2023 End: 12-25-2023 Carcinoembryonic Ag [Mass/volume] in Serum or Plasma CARCINOEMBRYONIC ANTIGEN Lab Routine Rectal cancer (HCC) Expected: 09/25/2023 (Approximate), Expires: 12/25/2023 [facility] Comment on above: Expected: 09/25/2023 (Approximate), Expi res: 12/25/2023 Start: 09-25-2023 End: 12-25-2023 CBC W Auto Differential panel - Blood COMPLETE BLOOD COUNT AND DIFFERENTIAL Lab Routine Rectal cancer (HCC) Expected: 09/25/2023 (Approximate), Expires: 12/25/2023 [facility] Comment on above: Expected: 09/25/2023 (Approximate), Expi res: 12/25/2023 Start: 09-25-2023 End: 12-25-2023 Comprehensive metabolic 2000 panel - Serum or Plasma COMPREHENSIVE METABOLIC PANEL Lab Routine Rectal cancer (HCC) Expected: 09/25/2023 (Approximate), Expires: 12/25/2023 [facility] Comment on above: Expected: 09/25/2023 (Approximate), Expi res: 12/25/2023 Start: 09-24-2023 End: 09-24-2023 Nutrition therapy Nutrition Therapy Comment on above: Nutri appt Start: 09-24-2023 End: 09-24-2023 Follow-up encounter Hematology/Oncology Comment on above: 2 week follow up with lab and chemotx ME DS?? auth not needed pe r auth chat 2 week follow up with lab and chemotx MEDS?? Start: 09-24-2023 End: 09-24-2023 Patient encounter procedure 09/24/2023 11:15 AM EDT Office Visit [facility] [address] [place] [address] 2 week follow up with lab and chemotx MEDS?? [facility] Comment on above: 2 week follow up with lab and chemotx ME DS?? Start: 09-18-2023 End: 09-18-2023 Patient encounter procedure 09/18/2023 3:30 PM EDT Office Visit Radiation Oncology [address] [place] [address] Patricia Dee MD [address] [place] [address] Sim treating pelvis no contrast eng Radiation Oncology Comment on above: Sim treating pelvis no contrast eng Start: 09-18-2023 End: 09-18-2023 Nursing evaluation of patient and report 09/18/2023 2:00 PM EDT Nurse Visit Hematology/Oncology [address] [facility] [place] [address] Little Bowens, RN [address] [address] Chemo ed Hematology/Oncology Comment on above: Chemo ed Start: 09-18-2023 End: 09-18-2023 Patient encounter procedure [facility] Comment on above: lab same day as Sim per CHAI Sim pelvis no contra st Start: 09-13-2023 End: 09-13-2023 Nursing evaluation of patient and report 09/13/2023 1:00 PM EDT Nurse Visit Hematology/Oncology [address] [place] [place] [address] Little Bowens, RN [address] [place] [address] Chemo ed Hematology/Oncology Comment on above: Chemo ed Start: 09-13-2023 End: 09-13-2023 Patient encounter procedure Radiation Oncology Comment on above: Sim pelvis no contrast Sim treating pelvis no contrast eng lab same day as Sim per [facility] Start: 09-11-2023 End: 12-11-2023 DPYD/UGT1A1 GENOTYPING PANEL DPYD/UGT1A1 GENOTYPING PANEL Lab Routine Rectal cancer (HCC) Expected: 09/11/2023, Expires: 12/11/2023 [facility] Work Phone: Comment on above: Expected: 09/11/2023, Expires: Start: 08-07-2023 End: 08-07-2023 Patient encounter procedure 08/07/2023 1:45 PM EDT Office Visit [facility] [address] [place] [phone] Grace Noble MD [address] [place], [place] [id number] [facility]necol[facility] Start: 07-18-2023 End: 07-18-2023 Patient encounter procedure 07/18/2023 1:30 PM EST Office Visit Milagro Bonilla [facility] - Medical Oncology [address] [place] [address] Filomena Avendano PA [address] [place] [address] [facility] - Medical Oncology Start: 07-17-2023 End: 07-17-2023 Patient encounter procedure 07/17/2023 1:30 PM EST Procedure visit [facility] [address] [place] [address] Grace Noble MD [address] [place], [place] [phone] [facility]necol[facility] Start: 07-16-2023 End: 07-16-2023 Patient encounter procedure 07/16/2023 1:00 PM EST Appointment [facility] - CT Imaging [address] [place] [phone] Chasity Diez DO [address] [place], [place] [phone] [facility] - CT Imaging Start: 07-10-2023 End: 10-09-2023 CREATININE BLD CREATININE BLD Lab Routine Rectal cancer (HCC) Expected: 07/10/2023, Expires: 10/09/2023 [facility] Work Phone: Comment on above: Expected: 07/10/2023, Expires: Start: 07-06-2023 End: 07-06-2023 Patient encounter procedure 07/06/2023 12:30 PM EST Office Visit Milagro L [facility] - Medical Oncology [address] [place] [phone] [place] [address] [place] [address] [place], [place] [phone] Milagro L [facility] - Medical Oncology Start: 07-04-2023 End: 07-04-2023 Patient encounter procedure 07/04/2023 2:15 PM EST Office Visit [facility] General Surgery [address] [place] [phone] Sienna Abdi, REEL SLITTER-SOLE SPLITTER [address] [place], [place] [phone] [facility] Start: 07-04-2023 End: 07-03-2024 CT Abdomen and Pelvis W contrast IV CT abdomen and pelvis with contrast Imaging Routine Adenocarcinoma of rectum (CMS-HCC) Expected: 07/04/2023, Expires: 07/03/2024 [facility] Work Phone: Comment on above: Expected: 07/04/2023, Expires: Start: 07-03-2023 End: 07-03-2023 Patient encounter procedure 07/03/2023 1:30 PM EST Office Visit Milagro Hamilton [facility] - Medical Oncology [address] [place] [phone] Filomena Avendano PA [address] [place] [address] [facility] L [facility] - Medical Oncology Start: 06-26-2023 End: 06-26-2023 Admission to same day surgery center 06/26/2023 11:00 AM EST - 06/26/2023 11:30 AM EST Surgery [facility] [address] [place] [phone] Chasity Diez, DO [address] [place] [address] [phone] COLONOSCOPY DIAGNOSTIC / SCREENING [89419 (CPT )] [facility] Comment on above: COLONOSCOPY DIAGNOSTIC / SCREENING [4537 8 (CPT )] Start: 06-26-2023 End: 06-26-2023 Colonoscopy flx dx w/collj spec when pfrmd COLONOSCOPY DIAGNOSTIC / SCREENING rectal mass 06/26/2023 11:00 AM [facility] Start: 06-26-2023 Subsequent hospital visit by physician 06/26/2023 11:00 AM EST Hospital Encounter [facility] [address] [place] [address] Chasity Diez, [address] [place] [address] [phone] [facility] Start: 06-25-2023 End: 06-25-2023 ambulatory 06/25/2023 3:00 PM EST Support Visit [facility] - Pre Admit [address] [place] [phone] [facility] - Pre Admit Start: 06-20-2023 End: 06-20-2023 Patient encounter procedure 06/20/2023 2:15 PM EST Office Visit [facility] [address] [place] [phone] Chasity Diez DO [address] [place], [place] [phone] [facility] Start: 06-20-2023 End: 06-20-2024 MR Pelvis Endorectal MR pelvis for rectal cancer Imaging Routine Rectal mass Expected: 06/20/2023, Expires: 06/20/2024 [facility] Comment on above: Expected: 06/20/2023, Expires: Start: 06-18-2023 End: 06-18-2024 Cytopathology procedure, preparation of smear, genital source Pap Smear Pathology and Cytology Routine Cervical smear, as part of routine gynecological examination Expected: 06/18/2023 (Approximate), Expires: 06/18/2024 [facility] Work Phone: Comment on above: Expected: 06/18/2023 (Approximate), Expi res: 06/18/2024 Start: 06-18-2023 End: 06-18-2023 Patient encounter procedure 06/18/2023 1:00 PM EST Office Visit [facility] [address] [place] [phone] Grace [place] MD [address] [place], [place] [phone] [facility] Start: 06-12-2023 End: 06-12-2023 Patient encounter procedure 06/12/2023 12:30 PM EST Office Visit [facility] - Family Medicine [address] [place] [address] Keaton Hu, DO [address] [place] [address] [facility] Start: 06-06-2023 End: 06-06-2023 Patient encounter procedure 06/06/2023 1:15 PM EST Office Visit [facility] [address] [place] [address] [facility] Start: 05-31-2023 End: 05-31-2024 PT Skull base to mid-thigh PET CT skull to thigh Imaging Routine Adenocarcinoma of rectum ([facility]) Expected: 05/31/2023, Expires: 05/31/2024 [facility] Work Phone: Comment on above: Expected: 05/31/2023, Expires: Start: 05-25-2023 End: 05-25-2023 Admission to same day surgery center 05/25/2023 1:00 PM EST - 05/25/2023 1:45 PM EST Surgery [facility] - Endoscopy [address] [place] [phone] Keaton Hu, DO [address] [place] [address] COLONOSCOPY DIAGNOSTIC / SCREENING [07739 (CPT )] [facility] Comment on above: COLONOSCOPY DIAGNOSTIC / SCREENING [4537 8 (CPT )] Start: 05-25-2023 Subsequent hospital visit by physician 05/25/2023 1:00 PM EST Hospital Encounter [facility] - Endoscopy [address] [place] [phone] Keaton Hu, DO [address] [place] [address] [facility] - Endoscopy Start: 05-25-2023 End: 05-25-2023 Colonoscopy flx dx w/collj spec [facility] Start: 05-24-2023 End: 05-24-2023 ambulatory 05/24/2023 2:10 PM EST Support Visit [facility] - Pre Admit [address] [place] [phone] [facility] - Pre Admit Start: 05-21-2023 Advance Directive Discussion Advance Directive Discussion [facility] Start: 05-21-2023 Behavioral Health Screening Behavioral Health Screening [facility] Start: 05-21-2023 Depression Assessment Depression Assessment [facility] Start: 01-19-2023 Covid-19 Vaccine ( season) Covid-19 Vaccine () [facility] Start: 01-19-2023 Influenza vaccination [facility] Start: 2022 Pneumococcal Vaccine: 65+ (2 of 2 - PCV) Pneumococcal Vaccine: 65+ (2 of 2 - PCV) [facility] Start: 2022 Screening for osteoporosis Bone Density Screening [facility] Start: 08-07-2019 Screening for malignant neoplasm of breast Mammogram Screening [facility] Start: 11-01-2017 Pneumococcal Vaccine: 50+ (2 of 2 - PCV) Pneumococcal Vaccine: 50+ (2 of 2 - PCV) [facility] Start: 11-01-2017 Pneumococcal Vaccine: 65+ (2 of 2 - PCV) Pneumococcal Vaccine: 65+ (2 of 2 - PCV) [facility] Start: 2017 RSV Vaccine (1 - 1-dose 60+ series) RSV Vaccine (1 - 1-dose 60+ series) [facility] Start: 2002 Screening for malignant neoplasm of colon [facility] Start: 09-09-1975 Adult BMI Follow Up Plan Adult BMI Follow Up Plan [facility] Start: 09-09-1975 Annual PCP Team Chronic Disease Visit Annual PCP Team Chronic Disease Visit [facility] Start: 09-09-1975 Anxiety Screening Anxiety Screening [facility] Start: 09-09-1975 BP Controlled (<130/80) BP Controlled (<130/80) [facility] Start: 09-09-1975 Depression Screening Depression Screening [facility] Start: 09-09-1975 Hepatitis B surface antibody level LDL Cholesterol [facility] Start: 09-09-1975 Hepatitis C screening Hepatitis C Screening [facility] Start: 09-09-1975 HIV screening HIV Screening [facility] Start: 1968 Screening for malignant neoplasm of cervix Cervical Cancer Screening [facility] Start: 09-09-1967 Diabetic foot examination Diabetic Foot Exam [facility] Start: 09-09-1967 Glaucoma screening Dilated Retinal Exam [facility] Start: 1962 Covid-19 Vaccine (#1) Covid-19 Vaccine (#1) [facility] Start: 03-10-1958 Covid-19 Vaccine (#1) Covid-19 Vaccine (#1) [facility] Start: 1957 Glaucoma screening Diabetic Ophthalmology Exam [facility] End: 01-27-2025 Carcinoembryonic Ag [Mass/volume] in Serum or Plasma CARCINOEMBRYONIC ANTIGEN Lab Routine Rectal cancer (HCC) Every 3 weeks for 8 Occurrences starting 01/28/2024 until 01/27/2025 [facility] Work Phone: Comment on above: Every 3 weeks for 8 Occurrences starting 01/28/2024 until 01/27/2025 End: 01-27-2025 CBC W Auto Differential panel - Blood COMPLETE BLOOD COUNT AND DIFFERENTIAL Lab Routine Rectal cancer (HCC) Every 3 weeks for 8 Occurrences starting 01/28/2024 until 01/27/2025 [facility] Comment on above: Every 3 weeks for 8 Occurrences starting 01/28/2024 until 01/27/2025 End: 06-19-2024 Colonoscopy Colonoscopy GI Routine Rectal mass 1 Occurrences starting 06/20/2023 until 06/19/2024 [facility] Work Phone: Comment on above: 1 Occurrences starting 06/20/2023 until 06/19/2024 Colonoscopy flx dx w/collj spec when pfrmd COLONOSCOPY DIAGNOSTIC / SCREENING Rectal bleeding [facility] End: 01-27-2025 Comprehensive metabolic 2000 panel - Serum or Plasma COMPREHENSIVE METABOLIC PANEL Lab Routine Rectal cancer (HCC) Every 3 weeks for 8 Occurrences starting 01/28/2024 until 01/27/2025 [facility] Comment on above: Every 3 weeks for 8 Occurrences starting 01/28/2024 until 01/27/2025 End: 12-26-2024 Comprehensive metabolic 2000 panel - Serum or Plasma Comprehensive metabolic panel Lab Routine Type 2 diabetes mellitus without complication, with long-term current use of insulin ([facility]) 1 Occurrences starting 12/27/2023 until 12/26/2024 [employer] Work Phone: Comment on above: 1 Occurrences starting 12/27/2023 until 12/26/2024 End: 08-08-2024 CT Abdomen and Pelvis W contrast IV CT ABD/PEL W IVCON Radiology Routine Rectal cancer (HCC) Malignant neoplasm of rectum (HCC) 1 Occurrences starting 07/10/2023 until 08/08/2024 [facility] Work Phone: Comment on above: 1 Occurrences starting 07/10/2023 until 08/08/2024 End: 07-04-2025 CT Abdomen and Pelvis W contrast IV CT ABD/PEL W IVCON Radiology Routine Rectal cancer (HCC) Wound cellulitis Type 2 diabetes mellitus with other specified complication, with long-term current use of insulin (HCC) 1 Occurrences starting 06/04/2024 until 07/04/2025 [facility] Comment on above: 1 Occurrences starting 06/04/2024 until 07/04/2025 End: 08-08-2024 CT Chest W contrast IV CT CHEST W IVCON Radiology Routine Rectal cancer (HCC) Malignant neoplasm of rectum (HCC) 1 Occurrences starting 07/10/2023 until 08/08/2024 [facility] Work Phone: Comment on above: 1 Occurrences starting 07/10/2023 until 08/08/2024 End: 12-20-2024 CT Chest W contrast IV CT CHEST W IVCON Radiology Routine Malignant neoplasm of rectum (HCC) Rectal cancer (HCC) Lung nodules 1 Occurrences starting 11/21/2023 until 12/20/2024 [facility] Comment on above: 1 Occurrences starting 11/21/2023 until 12/20/2024 End: 07-04-2025 CT Chest W contrast IV CT CHEST W IVCON Radiology Routine Rectal cancer (HCC) Wound cellulitis Type 2 diabetes mellitus with other specified complication, with long-term current use of insulin (HCC) 1 Occurrences starting 06/04/2024 until 07/04/2025 [facility] Comment on above: 1 Occurrences starting 06/04/2024 until 07/04/2025 CT Guidance for radi ation treatment of Unspecified body region CT SIM PLANNING RADIATION ONCOLOGY Radiology Routine Rectal adenocarcinoma (HCC) Ordered: 09/24/2023 [facility] Work Phone: Comment on above: Ordered: 09/24/2023 End: 07-21-2025 Flexible sigmoidoscopy study SIGMOIDOSCOPY Endoscopy Routine Rectal cancer (HCC) 1 Occurrences starting 07/21/2024 until 07/21/2025 [facility] Work Phone: Comment on above: 1 Occurrences starting 07/21/2024 until 07/21/2025 End: 12-26-2024 Hemoglobin A1c/Hemoglobin.total in Blood Hemoglobin A1c Lab Routine Type 2 diabetes mellitus without complication, with long-term current use of insulin ([facility]) 1 Occurrences starting 12/27/2023 until 12/26/2024 [employer] Comment on above: 1 Occurrences starting 12/27/2023 until 12/26/2024 End: 06-18-2024 High risk HPV w/zane High risk HPV w/zane Lab Routine Cervical smear, as part of routine gynecological examination 1 Occurrences starting 06/18/2023 until 06/18/2024 [employer] Comment on above: 1 Occurrences starting 06/18/2023 until 06/18/2024 IR PORTOCATH PLACEMENT IR PORTOC ATH PLACEMENT Radiology Routine Rectal cancer (HCC) Ordered: 02/01/2024 [facility] Work Phone: Comment on above: Ordered: 02/01/2024 End: 12-26-2024 Lipid 1996 panel - Serum or Plasma Lipid profile Lab Routine Type 2 diabetes mellitus without complication, with long-term current use of insulin ([facility]) 1 Occurrences starting 12/27/2023 until 12/26/2024 [employer] Comment on above: 1 Occurrences starting 12/27/2023 until 12/26/2024 End: 12-26-2024 Microalbumin - Albumin: Creatinine Urine Ratio Microalbumin - Albumin: Creatinine Urine Ratio Lab Routine Type 2 diabetes mellitus without complication, with long-term current use of insulin ([facility]) 1 Occurrences starting 12/27/2023 until 12/26/2024 [facility] Comment on above: 1 Occurrences starting 12/27/2023 until 12/26/2024 End: 08-08-2024 MR Pelvis WO contrast MRI RECTUM WO/W IVCON Radiology Routine Rectal cancer (HCC) 1 Occurrences starting 07/10/2023 until 08/08/2024 [facility] Work Phone: Comment on above: 1 Occurrences starting 07/10/2023 until 08/08/2024 End: 12-20-2024 MR Pelvis WO contrast MRI RECTUM WO/W IVCON Radiology Routine Malignant neoplasm of rectum (HCC) 1 Occurrences starting 11/21/2023 until 12/20/2024 [facility] Work Phone: Comment on above: 1 Occurrences starting 11/21/2023 until 12/20/2024 End: 07-04-2025 MR Pelvis WO contrast MRI RECTUM WO/W IVCON Radiology Routine Rectal cancer (HCC) Wound cellulitis Type 2 diabetes mellitus with other specified complication, with long-term current use of insulin (HCC) 1 Occurrences starting 06/04/2024 until 07/04/2025 [facility] Work Phone: Comment on above: 1 Occurrences starting 06/04/2024 until 07/04/2025 OUTSIDE SURG PATH SL ANDI REVIEW OUTSIDE SURG PATH SLIDE REVIEW Lab Routine Rectal cancer (HCC) Ordered: 08/08/2023 [facility] Work Phone: Comment on above: Ordered: 08/08/2023 Patient Education Know your Meds [facility] Work Phone: Patient referral [facility] Work Phone: End: 07-17-2024 Surgical Pathology Surgical Pathology Pathology and Cytology Routine Vaginal itching History of carcinoma in situ of vulva 1 Occurrences starting 07/17/2023 until 07/17/2024 [employer] Work Phone: Comment on above: 1 Occurrences starting 07/17/2023 until 07/17/2024 [facility] Immunizations Immunization Date Immunization Notes Care Provider Fa osmani 05-08-2024 Immunization, In Clinic,; Translations: [Drug or medicament (substance)] Keaton Hu DO Work Phone: [facility] 01-02-2024 respiratory syncytia l virus (RSV) vaccine, bivalent (ABRYSVO) Margarette Hernandez APRN.CNP Work Phone: [facility] 08-22-2019 tetanus toxoid, redu sergio diphtheria toxoid, and acellular pertussis vaccine, adsorbed Pauline Fatima [facility] 04-30-2018 zoster vaccine recombinant Arturo Mcdonald MD Work Phone: [facility] Work Phone: 12-21-2017 zoster vaccine recombinant Arturo Mcdonald MD Work Phone: [facility] Work Phone: 05-04-2017 influenza, high dose seasonal, preservative-free Blu Tellez MD Work Phone: [facility] 05-04-2017 influenza virus vacc ine, unspecified formulation Keaton Hu DO Work Phone: [facility] 05-03-2017 influenza nasal, unspecified formulation Pauline Fatima [facility] 05-03-2017 influenza, injectabl e, quadrivalent, preservative free Arturo Mcdonald MD Work Phone: [facility] 05-03-2017 influenza, seasonal, injectable Arturo Mcdonald MD Work Phone: [facility] Work Phone: 05-03-2017 influenza virus vacc ine, unspecified formulation Arturo Mcdonald MD Work Phone: [facility] 11-01-2016 pneumococcal polysaccharide vaccine, 23 valent Arturo Mcdonald MD Work Phone: [facility] Work Phone: 02-16-2016 influenza, injectabl e, quadrivalent, preservative free Arturo Mcdonald MD Work Phone: [facility] 02-16-2016 influenza, seasonal, injectable Arturo Mcdonald MD Work Phone: [facility] Work Phone: 02-19-2015 influenza, injectabl e, quadrivalent, preservative free Arturo Mcdonald MD Work Phone: [facility] 02-19-2015 influenza, seasonal, injectable Arturo Mcdonald MD Work Phone: [facility] Work Phone: 02-10-2015 influenza, seasonal, injectable Arturo Mcdonald MD Work Phone: [facility] 02-10-2015 influenza, seasonal, injectable, preservative free Arturo Mcdonald MD Work Phone: [facility] Work Phone: 02-11-2014 influenza, injectabl e, quadrivalent, contains preservative Arturo Mcdonald MD Work Phone: [facility] Work Phone: 02-11-2014 influenza, seasonal, injectable, preservative free Arturo Mcdonald MD Work Phone: [facility] Payers Date Payer Category Payer Self-pay [id number] 2023 Medicare (Managed Care) [facility] DUAL COMPLETE HMO POS SNP [id number] 2022 Medicare [id number] 2022 Medicare HMO [employer] [address] [id number] 2022 Private Health Insurance [id number] 2016 Medicaid [id number] 1959 Medicaid [id number] 1959 Medicaid [id number] 1959 Medicare [id number] 1957 Unknown [id number] 2.16.840.1.146302.3.579. 2.593 1957 Unknown [id number] 2.16.840.1.184150.3.579. 2.593 1957 Unknown [id number] 2.16.840.1.197068.3.579. 2.593 1957 Unknown [id number] 2.16.840.1.645131.3.579. 2.593 1957 Unknown [id number] 2.16.840.1.086437.3.579. 2.593 1957 Unknown [id number] 2.16.840.1.403869.3.579. 2.1285 1957 Unknown [id number] 2.840.1.341182.3.579. 2.1285 1957 Unknown [id number] 2.840.1.036665.3.579. 2.1285 1957 Unknown [id number] 2.840.1.582996.3.579. 2.1285 1957 Unknown [id number] 2.840.1.791565.3.579. 2.1285 1957 Unknown [id number] 2.0.1.311765.3.579. 2.1285 1957 Unknown [id number] 2.0.1.908313.3.579. 2.1285 1957 Unknown [id number] 2.0.1.093905.3.579. 2.1285 1957 Unknown [id number] 2.0.1.908515.3.579. 2.1285 1957 Unknown [id number] .0.1.154681.3.579. 2.1285 1957 Unknown [id number] .0.1.211824.3.579. 2.1285 1957 Unknown [id number] 07.06.830.1.214818.3.579. 2.1286 Medicare [place] [employer] Dual Adv JRG [id number] Medicare Medicare [id number] Medicare Medicare Nonpatient [id number] Private Health Insurance [id number] Unknown [id number] 2.0.1.598072.3.579. 2.531 Social History Date Type Detail Facility [facility] Work Phone: Start: 1955 Sex Assigned At Female F [facility] Start: 02-27-2023 End: 07-09-2023 Sex Assigned At [facility] Start: 07-09-2023 End: 09-14-2023 Tobacco smoking status NHIS Ex-smoker [facility] End: 05-21-1975 History of tobacco use Current smoker [facility] History of tobacco use Passive smoker [facility] Start: 07-09-2023 End: 09-14-2023 Tobacco use and exposure Smokeless tobacco non-user [facility] Start: 07-09-2023 End: 11-05-2024 Alcohol intake Current drinker of alcohol (finding) [facility] Start: 02-27-2023 End: 07-09-2023 History of Social function [facility] Start: 10-01-2018 Alcohol Comment occasional [facility] Start: 1955 Sex Assigned At Not on file C [facility] National Score (1-10 0), lower number is lower risk 76 [facility] End: 05-21-1975 History of tobacco use Cigarette Smoker [facility] Start: 08-18-2017 Tobacco [facility] Never smoked tobacco (finding) [facility] Start: 12-24-2014 End: 03-29-2024 Sex Female (finding) [facility] Has the [employer], [employer], [employer], or water company threatened to shut off services in your home in past 12Mo Yes [facility] Do you belong to any clubs or organizations such as anabaptist groups, unions, fraternal or athletic groups, or school groups? No [facility] Are you now , , , , never or living with a partner? [facility] How often to you hav e a drink containing alcohol? Monthly or less [facility] How often do you hav e 6 or more drinks on 1 occasion? Never [facility] How hard is it for y ou to pay for the very basics like food, housing, medical care, and heating Hard [facility] Do you feel stress - tense, restless, nervous, or anxious, or unable to sleep at night because your mind is troubled all the time - these days [OSQ] To some extent [facility] Start: 07-10-2022 Tobacco Comment smoked for 1 y ear when was age 18 [facility] Start: 07-10-2022 Alcohol Comment socially [facility] Medical Equipment Procedure Code Equipment Code Equipment Origin al Text Equipment Identifier Dates Cement Bn [place] s Radpq 40g Rpl [id number] - Sna - [id number] Start: 11-13-2016 Sys Bn Cmnt Feroz Quik-Use - [id number] Start: 11-13-2016 Comment on above: Description: only rajeev ne pick not an implant Cmpt Fem E Kn Lt Lpsflx Gndr Rpl [id number] - [id number](21)NA, [id number] FDA Start: 11-13-2016 Cmpt Ptlr Std 9m m 35mm Nxgn Rpl [id number] - [id number]/$ $[id number] NA, [id number] FDA Start: 11-13-2016 Ins Artc 5-6 E-F 10mm Kn Fx Rpl [id number] - [id number]/$ $[id number] NA, [id number] FDA Start: 11-13-2016 Plt Tib [id number] Nxgn Opt Kn Sz5 Rpl [id number] - [id number](21)NA, [id number] FDA Start: 11-13-2016 [id number] Start: 04-09-2024 1 Pen Needle by miscellaneous route in the morning and 1 Pen Needle before bedtime. [id number] Start: 01-23-2023 End: 03-27-2024 use four times daily [id number] Star t: 04-04-2024 End: 04-09-2024 1 Pen Needle by miscellaneous route in the morning and 1 Pen Needle before bedtime. [id number] Start: 03-27-2024 End: 04-04-2024 Goals Date Patient Goal Desired Activity /State Personal health goal Comment on above: Formatting of this n ote might be different from the original. Evaluation of progress towards goal: safe transition to home with self care. Personal health goal Comment on above: Formatting of this n ote might be different from the original. Evaluation of progress towards goal: Home self care with family support Functional Status Date Assessment Result Facility 10-30-2024 Humiliation, Afraid, Rape, and Kick questionnaire [HARK] [facility] Clinical Notes 02-02-2021 to 11-17-2024 Patient InstructionsBlu Tellez MD - 11/17/2024 2:00 PM EDBridgette Kauffman RN - 11/14/2024 3:20 PM EDTerrie Conway MRI Tech - 11/14/2024 3:20 PM EDTPatient Instructions Note Date & Type Note Facility 11-17-2024 Instructions Blu Tellez MD - 11/17/2024 2:06 PM EDT MRI Rectum in [address] chest in 4 months Labs same day RTC 1 week after Continue to follow with behavioral health for depression Continue to follow wound care for right leg wound We discussed your recent MRI results: - Your MRI of the rectum from November 14 showed a late near-complete response with no definitive viable tumor. There is a T2 hypo-intense scar and fibrosis in the anterior rectal wall. No suspicious mesorectal or extra-mesorectal lymph nodes were identified. This is excellent news. - You will have another MRI in 4 months as part of your follow-up plan. After 5 years of monitoring, you will no longer need routine imaging if everything remains stable. We discussed your diabetes management: - You are awaiting a Dexcom continuous glucose monitor to help track your blood sugar levels and adjust your insulin doses as needed. Please follow up with the team when they contact you to set this up. - You are currently taking 60 units of insulin daily. Continue monitoring your diet and blood sugar levels as best as you can until the Dexcom is in place. - Limit high-sugar foods, such as watermelon, and consider alternatives like cantaloupe if you enjoy fruit. We discussed your wound care: - Your leg wound is healing well but is not yet fully healed. Continue following up with the wound care clinic for ongoing management. We discussed your general health and follow-up: - You mentioned occasional pain in the area of your prior treatments when the weather changes. This is not uncommon, but let us know if it worsens or becomes more frequent. - I will request a CT scan of your chest to ensure there are no concerns, as a small spot was previously noted. Please follow up with scheduling when contacted. - You reported feeling tired, which may be related to your blood sugar levels. The Dexcom monitor should help address this. Please continue attending all follow-up appointments and let us know if you experience any new or worsening symptoms. documented in this encounter [facility] 11-17-2024 Note [facility] 11-17-2024 History of Presen t illness Narrative Images from the original note were not included. NAME: Parvez Riggins [facility] NO.: [id number] DATE OF SERVICE: November 17, 2024 (ivan) Some elements in this clinic note that are critical to medical decision making have been carefully reviewed and included from a prior clinic note dated: August 14, 2024 (Devin) Referring Provider: Arturo Mcdonald MD Additional Clinicians involved in Parvez Riggins's care: Evans Hazelkurtmelba DIAGNOSIS: Rectal Cancer- MRI Staged T3a,N+,M0- RHYS CASE SUMMARY / ASSESSMENT: 69 year old female here for follow up. Rectal cancer-started planned YANIV. Started radiation and xeloda on October 16, 2023. She is doing well. She does have fatigue but otherwise no major side effects. She will complete xeloda and xrt on 11/23/2023. I have arranged for a repeat MRI rectum and a follow up with [facility]. She has decided she would like to maintain her care in [place] and I will offer her a follow up with a new oncologist in 2-3 weeks to plan her YANIV therapy. She does not have a port and wishes to proceed without one. Proceed with CAPOX. 5 mm left-sided nodular opacity on initial staging CT- repeat CT chest November 2023 negative. Post dental extraction. DM2--not well controlled. She will follow up with her PCP for this - blood sugar is high today but will need to resume ozempic and see her PCP. Depression-referral to behavioral health Leg wound-referral placed to wound care SUMMARIZED PLAN OF CARE: MRI Rectum in [address] chest in 4 months Labs same day RTC 1 week after Continue to follow with behavioral health for depression Continue to follow wound care for right leg wound AI Assisted A/P: 1. Malignant neoplasm of rectum (HCC) (C20) Personal history of malignant neoplasm of rectum, rectosigmoid junction, and anus (Z85.048) Encounter for follow-up examination after completed treatment for malignant neoplasm (Z08) Recent MRI of the rectum on November 14 shows a T2 hypo-intense scar and fibrosis along the anterior rectal wall with no definitive viable tumor, indicating a Grade 2, good response. No suspicious mesorectal or extra mesorectal lymph nodes were identified. - Schedule next MRI in 4 months. - Discussed the importance of regular follow-up and monitoring for recurrence over the next 5 years. - Ordered CT scan of the chest to further evaluate. 2. Type 2 diabetes mellitus with hyperglycemia, with long-term current use of insulin (HCC) (E11.65) Type 2 diabetes mellitus without complication, with long-term current use of insulin (HCC) (E11.9) correction (current) use of insulin (HCC) (Z79.4) Patient is on 60 units of insulin daily. Awaiting Dexcom meter for better glucose monitoring and medication adjustment. Dietary habits include high-sugar fruits and pre-packaged meals. - Await Dexcom meter installation for continuous glucose monitoring. - Educated on dietary modifications to reduce sugar intake. 3. Non-pressure chronic ulcer of skin of other sites with unspecified severity ([facility]) (L98.499) Non-pressure chronic ulcer of right lower leg, unspecified ulcer stage ([facility]) (L97.919) Chronic ulcer on the right lower leg is healing, with only a few small areas remaining. Patient is under the care of a wound clinic. - Continue follow-up with wound care specialists. - Monitor for signs of infection or delayed healing. 4. Encounter for follow-up examination after completed treatment for conditions other than malignant neoplasm (Z09) 5. Family history of ischemic heart disease (Z82.49) Patient's father had ischemic heart disease and at the age of 92. HPI: CASE HISTORY: Reverse Chronological Order 11/14/2024 - MRI Rectum wo/w: Since 07/01/2024 and multiple remote exams , post treatment primary tumor assessment: Complete/near complete response. -T2 hypointense scar/fibrosis along the anterior rectal wall with no definite viable tumor. Please correlate with direct visualization and/or biopsy. mrTRG: Grade 2 - Good response Suspicious Mesorectal lymph nodes: No. Suspicious Extramesorectal lymph nodes: No. 08/07/2024 - Tumor board Discussion and Recommendation: Proceed with watch and wait protocol. Repeat MRI in 3-6 months. 07/29/2024 - Surveillance Flexible Sigmoidoscopy: Dr. Zurita Findings: The perianal and digital rectal examinations were normal. Rectum- tattoo noted at level of middle rectal valve. There is a smooth scar noted at the site of previous tumor. There is not evidence of tumor. No ulceration present. Impression: History of rectal cancer. Endoscopically it appears she had complete response to treatment 07/01/2024 - MRI Rectum: Since 01/10/2024 and 09/04/2023, post treatment primary tumor assessment: Incomplete response (likely residual tumor). Decreased size and bulk of mid rectal mass with increasing scar/fibrosis. mrTRG: Grade 3 - Moderate response Suspicious Mesorectal lymph nodes: No. Suspicious Extramesorectal lymph nodes: No. 06/24/2024 - ER at [facility] for abdominal pain 06/23/2024 - CT CAP: Chest: No CT evidence of new metastatic disease in the chest. Unchanged pulmonary nodules measuring up to 5 mm. No new pulmonary nodules or masses are identified. A/P: Findings compatible with acute sigmoid diverticulitis. There is no intraperitoneal free air. A small amount of nonspecific fluid is noted within the adjacent sigmoid mesentery. No CT evidence of metastatic disease in the abdomen/pelvis. Unchanged 9 mm cyst at the pancreatic tail, perhaps representing a side branch IPMN. Similar-appearing 3 cm cyst in the right adnexa. Additional stable incidental findings are detailed above including a small hiatal hernia. 06/08/2024 - CT A/P: No acute findings in the abdomen pelvis. Colonic diverticulosis without acute diverticulitis. 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 This was not present when compared to CT from 2010. Based on ACR criteria, recommend imaging every 2 years for approximately 10 years and evaluate for stability. 06/08/2024 - ER at [facility] for abdominal pain 06/04/2024 - C3 D1 CAPOX 03/20/2024 - C2 D1 CAPOX 01/31/2024 - CAPOX C1 D1 01/10/2024 - MRI Rectum: Since 09/04/23, post treatment primary tumor assessment: Incomplete response (likely residual tumor). Previously noted polypoid masslike rectal neoplasm has decreased with residual wall thickening. Interval resolution of previously noted mesorectal lymph nodes. mrTRG: Grade 3 - Moderate response Suspicious Mesorectal lymph nodes: No. Suspicious Extramesorectal lymph nodes: No. 11/23/2023 - CT Chest: No metastatic disease in the chest. 10/28/2023 - CT A/P: Moderate amount of stool in the colon with a large amount of stool in the colorectal junction. There is been interval decreased size of the distal rectal mass however there is luminal narrowing which could represent a component of stricture formation however there is no significant proximal colonic dilatation. Consider nonemergent fluoroscopic barium enema for further assessment. 10/16/2023-11/23/2023 - Xeloda and XRT, planned YANIV - (patient reports on August 14, 2024 not taking xeloda after 10 days) 09/04/2023 - MRI Rectum: MID RECTAL SEMIANNULAR MASS. Stage: T3a N+ MRF: Clear (tumor margin >2 mm from MRF), however a metastatic mesorectal lymph node abuts the MRF Sphincter involvement: No. Suspicious extra mesorectal lymph nodes: No. EMVI: No. 07/16/2023 - CT CAP: Chest: Left-sided nodular opacities measuring up to 5 mm. Metastatic disease is not excluded. Recommend continued attention to these areas on follow-up exams. No evidence of intrathoracic lymphadenopathy. A/P: Large rectal mass with numerous enlarged perirectal nodes, suspicious for ami metastatic disease. No additional findings to suggest distant abdominal or pelvic metastatic disease. Linear bandlike hypodensity within the spleen, suggestive of a splenic infarct. 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 06/26/2023 - Colonoscopy: Rectal mass, procedure not specified: - 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 Anal verge, procedure not specified: - Inflammatory cloacogenic polyp, ulcerated, negative for dysplasia or carcinoma. HPI: Updated Visit, November 17, 2024: Patient with a history of rectal cancer and diabetes mellitus, currently managed with insulin therapy, presents for follow-up. On 11/14, an MRI of the rectum showed a near-complete response with a T2 hypo-intense scar and fibrosis along the anterior rectal wall, with no definitive viable tumor identified. The report noted a grade 2 response with no suspicious mesorectal or extra-mesorectal lymph nodes. Patient reports significant intolerance to previous chemotherapy infusions, experiencing severe sickness after each session. She did not complete the full course of chemotherapy due to these side effects and believes she was healed without completing treatment. She also reports persistent pain at the infusion site that worsens with weather changes. She is currently following up with wound care for a leg wound, which is not yet fully healed but has improved significantly. She expresses concern about her blood sugar levels, noting fatigue and difficulty managing her diabetes. She is awaiting a Dexcom meter to better monitor and adjust her insulin dosage, currently at 60 units daily. She reports dietary challenges, particularly with high-sugar fruits like watermelon and strawberries. Patient recently experienced an upper respiratory infection with coughing and headaches but has since recovered. She mentions that her father nearly a year ago at the age of 92, with a history of heart issues and kidney failure. Updated Visit, August 14, 2024: Parvez returns for a follow up. Flexible sigmoidoscopy with Dr. Zurita showed complete endoscopic response to treatment - partial colectomy was subsequently cancelled. Will proceed watch and wait protocol with a repeat MRI in 3 months. She continues following with wound care for her leg wounds. She remains very active with her anabaptist, they have prayed over her and her health. Updated Visit, July 08, 2024: Parvez returns for a follow up. Restaging imaging showed no evidence of metastatic disease however only incomplete response in the primary tumor. She is not tolerating chemotherapy well due to issues at the IV site. She is in agreement to meet with Dr. Zurita to consider surgical treatment options. She denies any pain at this time. She continues following with the wound center for her leg. She is having a difficult time in her personal life due to the loss of her in 2020 and her father in 11/2023. She is also of limited financial means and hasn't been able to live in her house because there is no heat. She reports new memory issues, including remembering to take her prescribed medications. Updated Visit, June 04, 2024: It has been 11 weeks since her cycle 2 of Capox. She reports that it was due to illness, personal issues and weather-related. She understands that her cancer may grow without treatment and she would like to resume. She is inquiring about a referral to behavioral health at [facility] in [place] for counseling. She has many past issues to deal with she reports. Her bowels are moving fine. She denies any pain. She is eating and drinking well. She reports that she took 3 days of Bactrim for her leg wound and it made her sick, so she stopped it. She would like to see wound care. Updated Visit, May 16, 2024: Parvez returns today for consideration of C3D1 of CAPOX. She skipped her treatment last month and wanted to take a break. She reports today she is very tired and fatigue. At the beginning of the month she was caring a mattress and she fell on a quoc spring- see image below. Up to date on tetanus. Will prescribe Bactrim. Followed up with her PCP. hose tender and slightly reddened. Patient has been down due to the holidays. She feels excluded from her family Having a hard time with her daughter. Explained to patient how to correctly take Xeloda. Continues to have neuropathy in bilateral feet- Not getting worse. CBC appropriate for treatment today. She will see our social insurance analyst today. No diarrhea or constipation. No bleeding or bruising. No fever, chills, night sweats. Patient wishes not to proceed with treatment today. We will hold Xeloda and oxaliplatin today. She wishes to RTC in one week. Updated Visit, April 10, 2024: Parvez Riggins returns for scheduled follow-up and treatment. Today she states that she is not doing well and does not want treatment today. She has a lot of personal issues going on. She has been having family issues. Her daughter was recently diagnosed with bipolar. The patient states that her daughter told her I am the way I and because of you . She complains of being fatigued she is not sleeping well. She states that her brain will not shut off . She has some nausea with treatment. No vomiting. She denies fevers, chills, night sweats and signs/symptoms of infection. No bleeding or abnormal bruising. Updated Visit, March 20, 2024: Had an accident last time and was severely hypokalemic - went home before we saw her. Her last infusion site on her left hand still bothering her from oxaliplatin. On a positive note - her daughter is trying to improve their relationship again. Labs are safe to proceed. Updated Visit, January 31, 2024: Parvez returns today to start CAPOX. She admits she is nervous to start treatment and that she would not like surgery in the future. We discussed her mental health and her familial relationships. I recommended she follow up with our social insurance analyst as she can also assist with transportation needs. She is very involved with her anabaptist and may reach out to them for emotional support. I also advised her to reconsider surgical intervention as this disease is curable. Initial Visit, January 15, 2024: Transition of Care Parvez Riggins presents today to transition her care following Dr. Mcdonald's relocation. MRI of the rectum shows incomplete response - she is in agreement to continue treatment with CAPOX. We discussed potential AEs, including cold-induced neuropathy. 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 Her therapy dog is known as Enrique and is 10 years old. November 21, 2023: Parvez returns for follow up. Overall she is doing well with her treatments. She denies diarrhea, however she does sometimes lose bowels when she doesn't expect it. Denies any mucositis or HFS. She is scheduled to finish radiation on 11/23/2023. October 31, 2023: Parvez returns for follow up. Since her last visit, She did develops some abdominal pain and went to the ER 10/28/23. Work up revealed moderate amount of stool in the colon with a large amount of stool int he colorectal junction on CTs. She was given an enema which helped. She does admit that she did not start her xeloda pills until about 4-5 days after radiation started. She is not taking them regularly. She is having fatigue. Denies any rectal bleeding. October 16, 2023: Parvez Riggins is a 68 year old year old female here for follow up. She feels better after addressing her dental issues. She had to have some tooth extractions. Otherwise she tolerated her first radiation well. She has not taken her Xeloda yet. September 11, 2023: Parvez Riggins is a 68 year old year old female here for follow up. She does have some bloating as well as mucous. Denies any fevers and or chills. Denies any abdominal pain as well. HPI, July 10, 2023: Ms. Riggins reports that she saw her PCP in May with the complaint of mucus in her stool. She endorses pain with defecation and some subtle blood. She subsequently underwent a colonoscopy which revealed a large fungating mass in the mid rectum and also a 10mm polyp in the anus,. 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 A repeat colonoscopy with biopsy and tattoo marking was performed by surgery.CEA elevated at 4.5 ng/mL.She has occasional bleeding. REVIEW OF SYSTEMS Per HPI and otherwise negative by full review of organ systems. Constitutional: (+) fatigue Musculoskeletal: (+) extremity pain ECOG PERFORMANCE STATUS: PHYSICAL EXAMINATION: Vitals: BP 153/83 Pulse 94 Temp (Src) 97.8 (Temporal) Resp 16 Ht 5' 7.717 (1.72m) Wt 216 lb 11.4 oz (98.3kg) SpO2 93% BMI 33.23 kg/(m^2). Body surface area is 2.17 meters squared. Exam limited to gross visualization where appropriate. Gen.: This is an age-appropriate patient in no acute distress. Head: Appears atraumatic with no visible lesions. Eyes: Pupils equally round and reactive to light, extraocular muscles are intact. Neck: Supple. Respiratory: Appears to be respiring comfortably. Neurologic: Nonfocal to gross visualization. Alert and oriented 3. Psychiatric: No evidence of inappropriate anxiety or depression. Skin: Visible areas of skin without rash, lesions, wounds or petechiae. Excoriated wound with bruising to right calf on 05/16/2024: ALLERGIES: ALLERGIES Allergen Reactions Codeine Other: See Comments Nausea Tramadol Vomiting MEDICATIONS: neomycin 500 mg tablet Take 2 tablets by mouth at 6 pm, again at 7 pm and at 11 pm the evening prior to surgery metroNIDAZOLE (FLAGYL) 500 mg tablet Take 1 tablet by mouth at 6 pm, another at 7 pm and again at 11 pm, the evening prior to surgery ondansetron (ZOFRAN) 8 mg tablet Take 1 tablet by mouth every 8 hours as needed for nausea/vomiting. prochlorperazine (COMPAZINE) 10 mg tablet Take 1 tablet by mouth every 6 hours as needed. prochlorperazine (COMPAZINE) 10 mg tablet Take 1 tablet by mouth every 6 hours as needed. polyethylene glycol 3350 17 gram packet Take 17 g by mouth. semaglutide (OZEMPIC) 1 mg/dose (2 mg/1.5 mL) pen Inject 1 mg subcutaneously one time a week. atorvastatin (LIPITOR) 40 mg tablet Take 40 mg by mouth daily at bedtime. clobetasol (TEMOVATE) 0.05 % cream Apply 1 Application to affected area two times a day. metoprolol tartrate, short acting, (LOPRESSOR) 50 mg tablet Take 50 mg by mouth two times a day. Mirtazapine (REMERON) 7.5 mg tablet Take 7.5 mg by mouth once daily. JANUMET XR 50-1,000 mg TM24 Take 1 tablet by mouth every afternoon. spironolactone (ALDACTONE) 25 mg tablet Take 50 mg by mouth every morning. cannabidiol, CBD, (CANNABIDIOL ORAL) Take 10 mg by mouth daily at bedtime. ondansetron (ZOFRAN) 8 mg tablet Take 1 tablet by mouth every 8 hours as needed for nausea/vomiting. aspirin, enteric coated (ASPIRIN, ENTERIC COATED) 81 mg EC tablet Take 81 mg by mouth every other day. busPIRone (BUSPAR) 10 mg tablet Take by mouth. ferrous sulfate 325 mg (65 mg iron) tablet Take 325 mg by mouth every 48 hours. meclizine (ANTIVERT) 25 mg tab Take by mouth at bedtime as needed. nystatin (MYCOSTATIN) ointment Apply 1 Application to affected area. insulin glargine (LANTUS SOLOSTAR U-100 INSULIN) 100 unit/mL (3 mL) Inject 80 Units subcutaneously daily at bedtime. irbesartan (AVAPRO) 75 mg tablet Take 75 mg by mouth daily at bedtime. insulin lispro (HUMALOG KWIKPEN INSULIN) 100 unit/mL inpn Inject subcutaneously as directed. amLODIPine (NORVASC) 10 mg tablet Take 10 mg by mouth once daily. Acetaminophen 500 mg cap Take 500 mg by mouth as needed. capecitabine (XELODA) 500 mg tablet Take 5 tablets (2,500 mg) by mouth two times a day. 14 days on 7 days off (Patient not taking: Reported on 07/29/2024) LABORATORY VALUES: WBC (k/uL) Date Value 11/17/2024 6.48 RBC (m/uL) Date Value 11/17/2024 4.53 Hemoglobin (g/dL) Date Value 11/17/2024 12.7 Hematocrit (%) Date Value 11/17/2024 36.6 MCV (fL) Date Value 11/17/2024 80.8 MCH (pg) Date Value 11/17/2024 28.0 MCHC (g/dL) Date Value 11/17/2024 34.7 RDW-CV (%) Date Value 11/17/2024 12.7 Platelet Count (k/uL) Date Value 11/17/2024 294 MPV (fL) Date Value 11/17/2024 9.1 Glucose (mg/dL) Date Value 11/17/2024 498 (H) BUN (mg/dL) Date Value 11/17/2024 15 Creatinine (mg/dL) Date Value 11/17/2024 0.95 Sodium (mmol/L) Date Value 11/17/2024 135 (L) Potassium (mmol/L) Date Value 11/17/2024 4.5 Chloride (mmol/L) Date Value 11/17/2024 99 CO2 (mmol/L) Date Value 11/17/2024 24 Protein, Total (g/dL) Date Value 11/17/2024 6.9 Albumin (g/dL) Date Value 11/17/2024 3.9 Calcium, Total (mg/dL) Date Value 11/17/2024 10.2 Alkaline Phosphatase (U/L) Date Value 11/17/2024 101 Bilirubin, Total (mg/dL) Date Value 11/17/2024 0.9 AST (U/L) Date Value 11/17/2024 10 (L) ALT (U/L) Date Value 11/17/2024 11 DIAGNOSIS: (C20) Malignant neoplasm of rectum (HCC) (primary encounter diagnosis) Plan: MRI RECTUM WO/W IVCON, iv contrast (will be provided with radiology test), enteric contrast (will be provided with radiology test), CT CHEST WO IVCON (E11.65, Z79.4) Type 2 diabetes mellitus with hyperglycemia, with long-term current use of insulin (HCC) (L98.499) Non-pressure chronic ulcer of skin of other sites with unspecified severity (HCC) (Z09) Encounter for follow-up examination after completed treatment for conditions other than malignant neoplasm (Z79.4) correction (current) use of insulin (HCC) (Z85.048) Personal history of malignant neoplasm of rectum, rectosigmoid junction, and anus (L97.919) Non-pressure chronic ulcer of right lower leg, unspecified ulcer stage (HCC) (E11.9, Z79.4) Type 2 diabetes mellitus without complication, with long-term current use of insulin (HCC) (Z08) Encounter for follow-up examination after completed treatment for malignant neoplasm (Z82.49) Family history of ischemic heart disease PAST MEDICAL HISTORY Diagnosis Date Anxiety Carcinoma of vulva (HCC) Chronic back pain COVID-19 Depression Diabetes (HCC) GERD (gastroesophageal reflux disease) HPV in female Hypertension Ovarian cyst Panic disorder PONV (postoperative nausea and vomiting) Rectal bleeding Rectal cancer (HCC) Rectal mass Sleep apnea Vulval lesion PAST SURGICAL HISTORY Procedure Laterality Date ARTHROSCOPY KNEE DIAGNOSTIC W/WO SYNOVIAL BX SPX Left x2 ARTHRP KNE CONDYLE&PLATU MEDIAL&LAT COMPARTMENTS Left BACK SURGERY HX CHOLECYSTECTOMY HX COLONOSCOPY EGD W/O BRSH SPEC VARICIES INJ LIGATE FALLOPIAN TUBE NASAL ENDOS,DIAG,UNI/ BILATERAL PAST SURGICAL HISTORY OF Dissection of lymph node inguinal femoral PAST SURGICAL HISTORY OF Revision of Episiotomy PAST SURGICAL HISTORY OF 2020 Right Hemivulvectomy/Bilateral inguinal sentinal lymp node dissection TOTAL KNEE REPLACEMENT Left TUBAL LIGATION Social History Tobacco Use Smoking status: Former Types: Cigarettes Passive exposure: Past Smokeless tobacco: Never Substance Use Topics Alcohol use: Yes Comment: occasional Drug use: Never FAMILY HISTORY Problem Relation Age of Onset Diabetes Mother Stroke Mother Hypertension Father Uterine Cancer Maternal Grandmother Diabetes Maternal Grandfather Heart Attack Maternal Grandfather Dementia Paternal Grandmother Heart Attack Paternal Grandfather I spent a total of 30 minutes on the date of service which included preparing to see the patient, [id number] patient care, completing clinical documentation, obtaining and/or reviewing separately obtained history, performing a medically appropriate examination, counseling and educating the patient/family/caregiver, ordering medications, tests, or procedures, communicating with other HCPs (not separately reported), independently interpreting results (not separately reported), communicating results to the patient/family/caregiver, and care coordination (not separately reported). Blu Tellez MD, CPE Hematology and Oncology Services Provided at: [place], [place] CC: Keaton Hu, DO [address] [facility] [id number] [place] documented in this encounter [facility] 11-14-2024 History of Presen t illness Narrative Radiology Service Progress Note DATE OF SERVICE: November 14, 2024 TIME: 3:27 PM PATIENT WEIGHT: 200 LBS PATIENT IDENTITY VERIFICATION COMPLETED USING TWO (2) STANDARD IDENTIFIERS: Name and Date of confirmed by patient verbally and Name and Date of confirmed by identification band. FALL SCREENING: Has the patient had 2 falls in the last year or 1 fall with injury or currently using an Ambulatory Assistive Device (Walker, Cane, Wheelchair, Crutches, etc.)? Yes, Patient High Risk for Falls What interventions were put in place to prevent falls during this visit? Instructed Patient to Remain Seated (Not on Exam Table) Until Exam and Increased Observations by Caregivers PATIENT GENDER DATA: Assigned female at . status: : No status: N/A ALLERGIES: Reviewed and unchanged CONTRAST ALLERGY: No EXAM: MRI - CONTRAST TYPE: GROUP II IV SITE: Ambulatory: A peripheral IV was started in the Right forearm with a Angio cath: 20 gauge. and A Saline lock was inserted per protocol IV SITE APPEARANCE: Clean,Dry and Intact SIGNATURE: Bridgette Jones RN PATIENT NAME: Parvez Riggins DATE: November 14, 2024 TIME: 3:27 PM Radiology Service Progress Note PATIENT NAME: Parvez Riggins DATE OF SERVICE: November 14, 2024 TIME: 3:46 PM PATIENT IDENTITY VERIFICATION COMPLETED USING TWO (2) IDENTIFIERS: Name and Date of confirmed by patient verbally and Name and Date of confirmed by identification band. FALL SCREENING: Has the patient had 2 falls in the last year or 1 fall with injury or currently using an Ambulatory Assistive Device (Walker, Cane, Wheelchair, Crutches, etc.)? No PATIENT GENDER DATA: Assigned female at . status: : No status: NO. PATIENT RELEVANT IMPLANT DATA REVIEWED: Not Applicable PATIENT PRESENTS WITH AN IMPLANTABLE OR ATTACHED RESEARCH TECHNICIAN: No RADIOLOGY DEPARTMENT: MR; Exam(s) Completed: Body: Rectal. Aromatherapy Administered: No PERIPHERAL IV DATA: Site assessment: Clean,Dry and Intact, Site disposition Discontinued SIGNED BY: CRYSTAL Atkins MRI Tech November 14, 2024 3:46 PM documented in this encounter [facility] 11-14-2024 Note HNO ID: [id number] Author: TERRIE WHALEN MRI Tech Service: Radiology Author Type: Technologist Type: Progress Notes Filed: 11/14/2024 15:46 Note Text: Radiology Service Progress Note PATIENT NAME: Parvez Riggins DATE OF SERVICE: November 14, 2024 TIME: 3:46 PM PATIENT IDENTITY VERIFICATION COMPLETED USING TWO (2) IDENTIFIERS: Name and Date of confirmed by patient verbally and Name and Date of confirmed by identification band. FALL SCREENING: Has the patient had 2 falls in the last year or 1 fall with injury or currently using an Ambulatory Assistive Device (Walker, Cane, Wheelchair, Crutches, etc.)? No PATIENT GENDER DATA: Assigned female at . status: : No status: NO. PATIENT RELEVANT IMPLANT DATA REVIEWED: Not Applicable PATIENT PRESENTS WITH AN IMPLANTABLE OR ATTACHED RESEARCH TECHNICIAN: No RADIOLOGY DEPARTMENT: MR; Exam(s) Completed: Body: Rectal. Aromatherapy Administered: No PERIPHERAL IV DATA: Site assessment: Clean,Dry and Intact, Site disposition Discontinued SIGNED BY: Belkis Benitez, director telecommunications Terrie Whalen director telecommunications November 14, 2024 3:46 PM [facility] 11-14-2024 Note HNO ID: [id number] Author: BRIDGETTE JONES RN Service: Radiology Author Type: Registered Nurse Type: Progress Notes Filed: 11/14/2024 15:39 Note Text: Radiology Service Progress Note DATE OF SERVICE: November 14, 2024 TIME: 3:27 PM PATIENT WEIGHT: 200 LBS PATIENT IDENTITY VERIFICATION COMPLETED USING TWO (2) STANDARD IDENTIFIERS: Name and Date of confirmed by patient verbally and Name and Date of confirmed by identification band. FALL SCREENING: Has the patient had 2 falls in the last year or 1 fall with injury or currently using an Ambulatory Assistive Device (Walker, Cane, Wheelchair, Crutches, etc.)? Yes, Patient High Risk for Falls What interventions were put in place to prevent falls during this visit? Instructed Patient to Remain Seated (Not on Exam Table) Until Exam and Increased Observations by Caregivers PATIENT GENDER DATA: Assigned female at . status: : No status: N/A ALLERGIES: Reviewed and unchanged CONTRAST ALLERGY: No EXAM: MRI - CONTRAST TYPE: GROUP II IV SITE: Ambulatory: A peripheral IV was started in the Right forearm with a Angio cath: 20 gauge. and A Saline lock was inserted per protocol IV SITE APPEARANCE: Clean,Dry and Intact SIGNATURE: Bridgette Jones RN PATIENT NAME: Parvez Riggins DATE: November 14, 2024 TIME: 3:27 PM [facility] 11-07-2024 Miscellaneous Notes I called and left Message on pt personal VM with Lab results. [facility] Tele[facility] encounter Note I called and left Message on pt personal VM with Lab results. [facility] History of Presen t illness Narrative IM PROGRESS NOTE Patient - Parvez Riggins Age - 69 y.o. - 1955 ASSESSMENT & PLAN 1. Type 2 diabetes mellitus with microalbuminuria, with long-term current use of insulin ([facility]) (Primary) - goals of treatment reviewed with the patient. -last A1c > 12% - repeat A1c to assess efficacy of her current self adjusted regimen which includes Lantus 50 units nightly -will adjust once lab work is back - Comprehensive metabolic panel; Future - Hemoglobin A1c; Future - Lipid profile; Future - Microalbumin - Albumin: Creatinine Urine Ratio; Future - Microalbumin - Albumin: Creatinine Urine Ratio - Lipid profile - Hemoglobin A1c - Comprehensive metabolic panel 2. Depression, unspecified depression type - chronic but stable - continue BuSpar 10 mg q.a.m. 3. Mixed hyperlipidemia - currently prescribed atorvastatin 40 mg daily -repeat lipid panel to assess efficacy of current treatment 4. Essential hypertension - current reading is borderline or slightly elevated -patient not checking at home - has been taking all of her medicines at 2:00 p.m. daily. This means she is at the end of her dosing interval for both amlodipine and irbesartan - continue taking irbesartan 300 mg at 2:00 p.m., and switch amlodipine to 10 mg q.h.s. - continue to monitor blood pressure and adjust as needed -may benefit from addition of extended-release beta-enio Subjective DIABETIC VISIT This is a follow up of a pre-existing problem. Patient self monitoring includes Not checking BG at home. Previously had a CGM, but says it never worked. Her glucometer stopped working about 6 months ago, and she said the company would not replace it. Patient experiences hypoglycemia None. Patient symptoms of hyperglycemia include: none. Current prescribed diet is consistent carbohydrate. Patient is not following the prescribed diet plan. Has limited resources, mainly eats prepared TV dinners Home activity includes: light activity around her house, occasionally takes her dog for a short walk. Patient does not experience numbness or burning in their hands or feet. Patient does not have vision changes. Last eye exam was: 2022 Patient BP monitoring is done regularly. BP normally 130 - 139 mmHg / 70 - 79 mmHg. Patient reports: not taking medications regularly as instructed, no medication side effects noted, no chest pain on exertion, no dyspnea on exertion, no swelling of ankles, no orthostatic dizziness or lightheadedness, no palpitations, and no intermittent claudication symptoms Issues affecting compliance with diabetic self management include: does not have any way to monitor her blood sugars at the current time. Subsequently stopped taking her Ozempic. Never started the finerenone for her microalbuminuria. A review of systems was negative except for the following: General: fatigue Psychiatric: anxiety, depression, and Which are stable. Still taking BuSpar regularly. Gastrointestinal: Currently under treatment for rectal cancer. Last evaluation showed resolution of visible tumor. Has MRI scan of the rectum scheduled in November.. Exam BP 140/60 (BP Site: Left Arm, BP Postition: Sitting, BP CUFF SIZE: M (9-13 inches)) Pulse 81 Temp 36.6 C (97.9 F) (Oral) Resp 20 Ht 170.2 cm (5' 7.01 ) Wt 97.6 kg (215 lb 3.2 oz) SpO2 96% BMI 33.70 kg/m Physical Exam Vitals reviewed. Constitutional: General: She is not in acute distress. Appearance: She is well-developed. She is obese. She is not toxic-appearing. HENT: Head: Normocephalic. Right Ear: External ear normal. Left Ear: External ear normal. Nose: Nose normal. Mouth/Throat: Mouth: Mucous membranes are moist. Eyes: General: No scleral icterus. Neck: Vascular: No carotid bruit. Cardiovascular: Rate and Rhythm: Normal rate and regular rhythm. Pulses: Normal pulses. Heart sounds: No murmur heard. No gallop. Pulmonary: Effort: Pulmonary effort is normal. Breath sounds: No wheezing or rales. Abdominal: Palpations: Abdomen is soft. Musculoskeletal: Right lower leg: No edema (trace ankle). Left lower leg: No edema (trace ankle). Skin: General: Skin is warm. Coloration: Skin is not jaundiced. Findings: No bruising. Comments: 2 cm X 1 cm dry scab on the lateral lower right leg. No surrounding erythema. Neurological: General: No focal deficit present. Mental Status: She is alert and oriented to person, place, and time. Sensory: No sensory deficit (Intact vibratory sensation bilaterally on the toes, feet and ankles. Intact monofilament testing on the feet, toes and ankles bilaterally.). Motor: No weakness. Coordination: Coordination normal. Deep Tendon Reflexes: Reflexes are normal and symmetric. Psychiatric: Mood and Affect: Mood normal. Behavior: Behavior normal. Diabetic foot exam: Visual exam was Not performed, since patient does not have ice on her feet. Left: Pulses Posterior Tibial: diminished Vibratory sensation normal Filament test present Right: Pulses Posterior Tibial: diminished Vibratory sensation normal Filament test present Meds Current Outpatient Medications: albuterol (PROVENTIL HFA;VENTOLIN HFA) 90 mcg/actuation inhaler, Inhale 2 puffs every 4 (four) hours as needed for wheezing., Disp: 18 g, Rfl: 0 amLODIPine (NORVASC) 10 mg tablet, Take 1 tablet by mouth every evening, Disp: 30 tablet, Rfl: 5 aspirin 81 mg, Take 1 tablet by mouth every day, Disp: 90 tablet, Rfl: 3 atorvastatin (LIPITOR) 40 mg tablet, Take 1 tablet by mouth every day, Disp: 90 tablet, Rfl: 1 blood sugar diagnostic (RELL BLOOD GLUCOSE TEST STRIP) strip, 1 each by other route., Disp: , Rfl: busPIRone (BUSPAR) 10 mg tablet, Take 1 tablet by mouth every day, Disp: 30 tablet, Rfl: 5 mnxzcekscr-aemtnyahagqnn-ocga (FIORICET, ESGIC) 50-325-40 mg per tablet, Take 1 tablet by mouth every 4 (four) hours as needed for headaches., Disp: 10 tablet, Rfl: 0 clobetasoL (TEMOVATE) 0.05 % cream, Apply 1 Application topically in the morning and 1 Application before bedtime., Disp: 30 g, Rfl: 0 ferrous sulfate (FeroSuL) 325 (65 FE) MG tablet, Take 1 tablet by mouth every day, Disp: 30 tablet, Rfl: 5 insulin glargine (LANTUS SOLOSTAR U-100 INSULIN) 100 unit/mL (3 mL) insulin pen, Inject 60 Units under the skin nightly., Disp: 45 mL, Rfl: 1 insulin lispro (HumaLOG) 100 unit/mL insulin pen, Inject under the skin., Disp: , Rfl: irbesartan (AVAPRO) 300 mg tablet, Take 1 tablet by mouth every day, Disp: 90 tablet, Rfl: 1 meclizine (ANTIVERT) 25 mg tablet, Take 1 tablet by mouth every day as needed for dizziness, Disp: 30 tablet, Rfl: 1 pen needle, diabetic (BD ULTRA-FINE MARIA C PEN NEEDLE) 32 gauge x 5/32 needle, Use to inject insulin four times daily, Disp: 400 each, Rfl: 1 semaglutide (OZEMPIC) 2 mg/dose (8 mg/3 mL) pen injector, Dial and inject 2 mg under the skin weekly, Disp: 9 mL, Rfl: 0 Lab Results Admission on 11/02/2024, Discharged on 11/02/2024 Component Date Value Ref Range Status FLU A PCR 11/02/2024 Negative Negative Final FLU B PCR 11/02/2024 Negative Negative Final RSV BY PCR 11/02/2024 Negative Negative Final SARS COV 2 BY PCR 11/02/2024 Not Detected Not Detected Final Other Testing No results found. ECG: Keaton Hu DO., [facility] Office: [phone] documented in this encounter [facility] 10-30-2024 History of Presen t illness Narrative Subjective SUBJECTIVE: Patient ID: Parvez Riggins is a 69 y.o. female who presents for a Medicare Annual Wellness exam. HPI The following portions of the patient's history were reviewed and updated as appropriate: allergies, current medications, past family history, past medical history, past social history, past surgical history and problem list. AWV FLOWSHEET : Lifestyle Assessment Do you smoke or use smokeless tobacco?: No If you smoke or use smokeless tobacco, are you ready to quit?: NA Are you exposed to secondhand smoke?: No On average, how many drinks of alcohol do you consume in a week?: 1 or less Do you exercise for 30 or more minutes on average at least 3 days a week?: (!) Never Do you have any tooth, denture, or oral problems?: (!) Yes Do you snore or has anyone told you that you snore?: No Do you try to eat a balanced diet?: (!) No Do you experience leakage of urine, also known as urinary incontinence?: Never Do you have difficulty bathing?: No Do you have difficulty dressing?: No Do you have difficulty grooming?: No Do you have difficulty eating?: No Do you have difficulty getting out of a chair?: No Do you have difficulty walking?: No Do you have difficulty using the toilet?: No Do you have difficulty doing laundry?: No Do you have difficulty with housekeeping?: No Do you have difficulty preparing a meal?: No Do you have difficulty shopping?: No Do you have difficulty using transportation?: No Do you have difficulty paying bills?: No Do you have difficulty managing finances?: No Fall Risk Fall Risk Assessment Completed?: Yes Have you fallen in the past year?: (!) Yes How many times?: 1 Were you injured?: No Are you worried about falling?: (!) Yes Do you feel unsteady when standing or walking?: (!) Yes Risk Stratification: Moderate Risk Depression Screening Little interest or pleasure in doing things: Not at all Feeling down, depressed, or hopeless: Not at all Trouble falling or staying asleep, or sleeping too much: (!) Several days Feeling tired or having little energy: Not at all Poor appetite or overeating: Not at all Feeling bad about yourself - or that you are a failure or have let yourself or your family down: Not at all Trouble concentrating on things, such as reading the newspaper or watching television: Not at all Moving or speaking so slowly that other people could have noticed. Or the opposite - being so fidgety or restless that you have been moving around a lot more than usual: Not at all Thoughts that you would be better off , or of hurting yourself in some way: Not at all PEG Scale What number best describes your pain on average in the past week?: 4 Safety Assessment Do you have throw rugs on the floor?: No Do you feel safe at your home?: Yes Do you feel unsteady when walking?: (!) Yes Are you having difficulty with driving?: No Do you have trouble seeing?: No Do you use a bath bar/seat?: No Do you use a raised toilet seat?: No Do you use a cane?: (!) Yes Do you use a walker?: No Do you use a wheelchair?: No Hearing Assessment Do you strain or struggle to hear/understand conversations?: No Do you have trouble hearing the television or radio when others do not?: No Does your family ever voice concerns about your hearing?: No Do you wear hearing aid/s?: No Personal Health During the past 4 weeks, how would you rate your overall health?: (!) Fair Do you understand how to take all of your medications?: Yes How confident are you that you can control and manage most of your health problems?: Very confident In the past 12 months, how many times have you been hospitalized?: None End of Life Planning Do you have a living will?: (!) No Do you have a durable power of criminal defense attorney?: (!) No Cognitive Screening Do you have trouble remembering or recalling facts or events?: (!) Yes Do family members or caregivers report that you have difficulty remembering things?: (!) Yes 6-ClT: Normal 0/28 REVIEW OF SYSTEMS: Review of Systems Objective PHYSICAL EXAMINATION: Vitals: 10/30/24 1439 BP: 160/82 BP Site: Left Arm Weight: 99.3 kg (219 lb) Height: 170.2 cm (5' 7 ) Physical Exam Assessment/Plan ASSESSMENT/PLAN Parvez was seen today for maw. Diagnoses and all orders for this visit: Encounter for subsequent annual wellness visit (AWV) in Medicare patient PAF (paroxysmal atrial fibrillation) ([facility]) Encounter for screening mammogram for malignant neoplasm of breast - Mammography screening bilateral with CAD; Future Return in about 1 year (around 10/30/2025). documented in this encounter [facility] 08-14-2024 Instructions Ivory Van - 08/14/2024 1:41 PM EDT MRI Rectum in 3 months RTC 1 week after Labs same day Continue to follow with behavioral health for depression Continue to follow wound care for right leg wound documented in this encounter [facility] 08-14-2024 History of Presen t illness Narrative Images from the original note were not included. NAME: Parvez Riggins [facility] NO.: [id number] DATE OF SERVICE: August 14, 2024 (Devin) Some elements in this clinic note that are critical to medical decision making have been carefully reviewed and included from a prior clinic note dated: July 08, 2024 (Devin) Referring Provider: Arturo Mcdonald MD Additional Clinicians involved in Parvez Riggins's care: Evans Zurita DIAGNOSIS: Rectal Cancer- MRI Staged T3a,N+,M0- RHYS ASSESSMENT: 68 year old female here for follow up. Rectal cancer-started planned YANIV. Started radiation and xeloda on October 16, 2023. She is doing well. She does have fatigue but otherwise no major side effects. She will complete xeloda and xrt on 11/23/2023. I have arranged for a repeat MRI rectum and a follow up with [facility]. She has decided she would like to maintain her care in [place] and I will offer her a follow up with a new oncologist in 2-3 weeks to plan her YANIV therapy. She does not have a port and wishes to proceed without one. Proceed with CAPOX. 5 mm left-sided nodular opacity on initial staging CT- repeat CT chest November 2023 negative. Post dental extraction. DM2--not well controlled. She will follow up with her PCP for this - blood sugar is high today but will need to resume ozempic and see her PCP. Depression-referral to behavioral health Leg wound-referral placed to wound care PLAN: MRI Rectum in 3 months RTC 1 week after Labs same day Continue to follow with behavioral health for depression Continue to follow wound care for right leg wound HPI: CASE HISTORY: Reverse Chronological Order 08/07/2024 - Tumor board Discussion and Recommendation: Proceed with watch and wait protocol. Repeat MRI in 3-6 months. 07/29/2024 - Surveillance Flexible Sigmoidoscopy: Dr. Zurita Findings: The perianal and digital rectal examinations were normal. Rectum- tattoo noted at level of middle rectal valve. There is a smooth scar noted at the site of previous tumor. There is not evidence of tumor. No ulceration present. Impression: History of rectal cancer. Endoscopically it appears she had complete response to treatment 07/01/2024 - MRI Rectum: Since 01/10/2024 and 09/04/2023, post treatment primary tumor assessment: Incomplete response (likely residual tumor). Decreased size and bulk of mid rectal mass with increasing scar/fibrosis. mrTRG: Grade 3 - Moderate response Suspicious Mesorectal lymph nodes: No. Suspicious Extramesorectal lymph nodes: No. 06/24/2024 - ER at [facility] for abdominal pain 06/23/2024 - CT CAP: Chest: No CT evidence of new metastatic disease in the chest. Unchanged pulmonary nodules measuring up to 5 mm. No new pulmonary nodules or masses are identified. A/P: Findings compatible with acute sigmoid diverticulitis. There is no intraperitoneal free air. A small amount of nonspecific fluid is noted within the adjacent sigmoid mesentery. No CT evidence of metastatic disease in the abdomen/pelvis. Unchanged 9 mm cyst at the pancreatic tail, perhaps representing a side branch IPMN. Similar-appearing 3 cm cyst in the right adnexa. Additional stable incidental findings are detailed above including a small hiatal hernia. 06/08/2024 - CT A/P: No acute findings in the abdomen pelvis. Colonic diverticulosis without acute diverticulitis. 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 This was not present when compared to CT from 2010. Based on ACR criteria, recommend imaging every 2 years for approximately 10 years and evaluate for stability. 06/08/2024 - ER at [facility] for abdominal pain 06/04/2024 - C3 D1 CAPOX 03/20/2024 - C2 D1 CAPOX 01/31/2024 - CAPOX C1 D1 01/10/2024 - MRI Rectum: Since 09/04/23, post treatment primary tumor assessment: Incomplete response (likely residual tumor). Previously noted polypoid masslike rectal neoplasm has decreased with residual wall thickening. Interval resolution of previously noted mesorectal lymph nodes. mrTRG: Grade 3 - Moderate response Suspicious Mesorectal lymph nodes: No. Suspicious Extramesorectal lymph nodes: No. 11/23/2023 - CT Chest: No metastatic disease in the chest. 10/28/2023 - CT A/P: Moderate amount of stool in the colon with a large amount of stool in the colorectal junction. There is been interval decreased size of the distal rectal mass however there is luminal narrowing which could represent a component of stricture formation however there is no significant proximal colonic dilatation. Consider nonemergent fluoroscopic barium enema for further assessment. 10/16/2023-11/23/2023 - Xeloda and XRT, planned YANIV - (patient reports on August 14, 2024 not taking xeloda after 10 days) 09/04/2023 - MRI Rectum: MID RECTAL SEMIANNULAR MASS. Stage: T3a N+ MRF: Clear (tumor margin >2 mm from MRF), however a metastatic mesorectal lymph node abuts the MRF Sphincter involvement: No. Suspicious extra mesorectal lymph nodes: No. EMVI: No. 07/16/2023 - CT CAP: Chest: Left-sided nodular opacities measuring up to 5 mm. Metastatic disease is not excluded. Recommend continued attention to these areas on follow-up exams. No evidence of intrathoracic lymphadenopathy. A/P: Large rectal mass with numerous enlarged perirectal nodes, suspicious for ami metastatic disease. No additional findings to suggest distant abdominal or pelvic metastatic disease. Linear bandlike hypodensity within the spleen, suggestive of a splenic infarct. 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 06/26/2023 - Colonoscopy: Rectal mass, procedure not specified: - 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 Anal verge, procedure not specified: - Inflammatory cloacogenic polyp, ulcerated, negative for dysplasia or carcinoma. Updated Visit, August 14, 2024: Parvez returns for a follow up. Flexible sigmoidoscopy with Dr. Zurita showed complete endoscopic response to treatment - partial colectomy was subsequently cancelled. Will proceed watch and wait protocol with a repeat MRI in 3 months. She continues following with wound care for her leg wounds. She remains very active with her anabaptist, they have prayed over her and her health. Updated Visit, July 08, 2024: Parvez returns for a follow up. Restaging imaging showed no evidence of metastatic disease however only incomplete response in the primary tumor. She is not tolerating chemotherapy well due to issues at the IV site. She is in agreement to meet with Dr. Zurita to consider surgical treatment options. She denies any pain at this time. She continues following with the wound center for her leg. She is having a difficult time in her personal life due to the loss of her in 2020 and her father in 11/2023. She is also of limited financial means and hasn't been able to live in her house because there is no heat. She reports new memory issues, including remembering to take her prescribed medications. Updated Visit, June 04, 2024: It has been 11 weeks since her cycle 2 of Capox. She reports that it was due to illness, personal issues and weather-related. She understands that her cancer may grow without treatment and she would like to resume. She is inquiring about a referral to behavioral health at [facility] in [place] for counseling. She has many past issues to deal with she reports. Her bowels are moving fine. She denies any pain. She is eating and drinking well. She reports that she took 3 days of Bactrim for her leg wound and it made her sick, so she stopped it. She would like to see wound care. Updated Visit, May 16, 2024: Parvez returns today for consideration of C3D1 of CAPOX. She skipped her treatment last month and wanted to take a break. She reports today she is very tired and fatigue. At the beginning of the month she was caring a mattress and she fell on a quoc spring- see image below. Up to date on tetanus. Will prescribe Bactrim. Followed up with her PCP. hose tender and slightly reddened. Patient has been down due to the holidays. She feels excluded from her family Having a hard time with her daughter. Explained to patient how to correctly take Xeloda. Continues to have neuropathy in bilateral feet- Not getting worse. CBC appropriate for treatment today. She will see our social insurance analyst today. No diarrhea or constipation. No bleeding or bruising. No fever, chills, night sweats. Patient wishes not to proceed with treatment today. We will hold Xeloda and oxaliplatin today. She wishes to RTC in one week. Updated Visit, April 10, 2024: Parvez Riggins returns for scheduled follow-up and treatment. Today she states that she is not doing well and does not want treatment today. She has a lot of personal issues going on. She has been having family issues. Her daughter was recently diagnosed with bipolar. The patient states that her daughter told her I am the way I and because of you . She complains of being fatigued she is not sleeping well. She states that her brain will not shut off . She has some nausea with treatment. No vomiting. She denies fevers, chills, night sweats and signs/symptoms of infection. No bleeding or abnormal bruising. Updated Visit, March 20, 2024: Had an accident last time and was severely hypokalemic - went home before we saw her. Her last infusion site on her left hand still bothering her from oxaliplatin. On a positive note - her daughter is trying to improve their relationship again. Labs are safe to proceed. Updated Visit, January 31, 2024: Parvez returns today to start CAPOX. She admits she is nervous to start treatment and that she would not like surgery in the future. We discussed her mental health and her familial relationships. I recommended she follow up with our social insurance analyst as she can also assist with transportation needs. She is very involved with her anabaptist and may reach out to them for emotional support. I also advised her to reconsider surgical intervention as this disease is curable. Initial Visit, January 15, 2024: Transition of Care Parvez Riggins presents today to transition her care following Dr. Mcdonald's relocation. MRI of the rectum shows incomplete response - she is in agreement to continue treatment with CAPOX. We discussed potential AEs, including cold-induced neuropathy. 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 Her therapy dog is known as Enriuqe and is 10 years old. November 21, 2023: Parvez returns for follow up. Overall she is doing well with her treatments. She denies diarrhea, however she does sometimes lose bowels when she doesn't expect it. Denies any mucositis or HFS. She is scheduled to finish radiation on 11/23/2023. October 31, 2023: Parvez returns for follow up. Since her last visit, She did develops some abdominal pain and went to the ER 10/28/23. Work up revealed moderate amount of stool in the colon with a large amount of stool int he colorectal junction on CTs. She was given an enema which helped. She does admit that she did not start her xeloda pills until about 4-5 days after radiation started. She is not taking them regularly. She is having fatigue. Denies any rectal bleeding. October 16, 2023: Parvez Riggins is a 68 year old year old female here for follow up. She feels better after addressing her dental issues. She had to have some tooth extractions. Otherwise she tolerated her first radiation well. She has not taken her Xeloda yet. September 11, 2023: Parvez Riggins is a 68 year old year old female here for follow up. She does have some bloating as well as mucous. Denies any fevers and or chills. Denies any abdominal pain as well. HPI, July 10, 2023: Ms. Riggins reports that she saw her PCP in May with the complaint of mucus in her stool. She endorses pain with defecation and some subtle blood. She subsequently underwent a colonoscopy which revealed a large fungating mass in the mid rectum and also a 10mm polyp in the anus,. 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 A repeat colonoscopy with biopsy and tattoo marking was performed by surgery.CEA elevated at 4.5 ng/mL.She has occasional bleeding. REVIEW OF SYSTEMS Per HPI and otherwise negative by full review of organ systems. ECOG PERFORMANCE STATUS: PHYSICAL EXAMINATION: Vitals: BP 165/92 Pulse 96 Temp (Src) 97.2 (Temporal) Resp 16 Ht 5' 7.717 (1.72m) Wt 218 lb 4.1 oz (99.0kg) SpO2 94% BMI 33.46 kg/(m^2). Body surface area is 2.17 meters squared. Exam limited to gross visualization where appropriate. Gen.: This is an age-appropriate patient in no acute distress. Head: Appears atraumatic with no visible lesions. Eyes: Pupils equally round and reactive to light, extraocular muscles are intact. Neck: Supple. Respiratory: Appears to be respiring comfortably. Neurologic: Nonfocal to gross visualization. Alert and oriented 3. Psychiatric: No evidence of inappropriate anxiety or depression. Skin: Visible areas of skin without rash, lesions, wounds or petechiae. Excoriated wound with bruising to right calf on 05/16/2024: ALLERGIES: ALLERGIES Allergen Reactions Codeine Other: See Comments Nausea Tramadol Vomiting MEDICATIONS: iv contrast (will be provided with radiology test) MRI Rectum Inject, intravenously, once for 1 [...] in the MR contrast administration guidelines link. enteric contrast (will be provided with radiology test) MRI RECTUM WO/W. Administer, As Directed One Time Only, via Oral, Rectal, both Oral and Rectal, Enteric Tube, Stoma or Indwelling Catheter, Enteric Contrast as designated per enteric contrast guidelines neomycin 500 mg tablet Take 2 tablets by mouth at 6 pm, again at 7 pm and at 11 pm the evening prior to surgery metroNIDAZOLE (FLAGYL) 500 mg tablet Take 1 tablet by mouth at 6 pm, another at 7 pm and again at 11 pm, the evening prior to surgery ondansetron (ZOFRAN) 8 mg tablet Take 1 tablet by mouth every 8 hours as needed for nausea/vomiting. prochlorperazine (COMPAZINE) 10 mg tablet Take 1 tablet by mouth every 6 hours as needed. capecitabine (XELODA) 500 mg tablet Take 5 tablets (2,500 mg) by mouth two times a day. 14 days on 7 days off (Patient not taking: Reported on 07/29/2024) prochlorperazine (COMPAZINE) 10 mg tablet Take 1 tablet by mouth every 6 hours as needed. polyethylene glycol 3350 17 gram packet Take 17 g by mouth. semaglutide (OZEMPIC) 1 mg/dose (2 mg/1.5 mL) pen Inject 1 mg subcutaneously one time a week. atorvastatin (LIPITOR) 40 mg tablet Take 40 mg by mouth daily at bedtime. (Patient not taking: Reported on 07/29/2024) clobetasol (TEMOVATE) 0.05 % cream Apply 1 Application to affected area two times a day. metoprolol tartrate, short acting, (LOPRESSOR) 50 mg tablet Take 50 mg by mouth two times a day. Mirtazapine (REMERON) 7.5 mg tablet Take 7.5 mg by mouth once daily. JANUMET XR 50-1,000 mg TM24 Take 1 tablet by mouth every afternoon. (Patient not taking: Reported on 07/29/2024) spironolactone (ALDACTONE) 25 mg tablet Take 50 mg by mouth every morning. (Patient not taking: Reported on 07/29/2024) cannabidiol, CBD, (CANNABIDIOL ORAL) Take 10 mg by mouth daily at bedtime. ondansetron (ZOFRAN) 8 mg tablet Take 1 tablet by mouth every 8 hours as needed for nausea/vomiting. aspirin, enteric coated (ASPIRIN, ENTERIC COATED) 81 mg EC tablet Take 81 mg by mouth every other day. busPIRone (BUSPAR) 10 mg tablet Take by mouth. ferrous sulfate 325 mg (65 mg iron) tablet Take 325 mg by mouth every 48 hours. meclizine (ANTIVERT) 25 mg tab Take by mouth at bedtime as needed. nystatin (MYCOSTATIN) ointment Apply 1 Application to affected area. insulin glargine (LANTUS SOLOSTAR U-100 INSULIN) 100 unit/mL (3 mL) Inject 80 Units subcutaneously daily at bedtime. irbesartan (AVAPRO) 75 mg tablet Take 75 mg by mouth daily at bedtime. insulin lispro (HUMALOG KWIKPEN INSULIN) 100 unit/mL inpn Inject subcutaneously as directed. amLODIPine (NORVASC) 10 mg tablet Take 10 mg by mouth once daily. Acetaminophen 500 mg cap Take 500 mg by mouth as needed. LABORATORY VALUES: WBC (k/uL) Date Value 08/14/2024 5.96 RBC (m/uL) Date Value 08/14/2024 4.49 Hemoglobin (g/dL) Date Value 08/14/2024 12.6 Hematocrit (%) Date Value 08/14/2024 36.0 MCV (fL) Date Value 08/14/2024 80.2 MCH (pg) Date Value 08/14/2024 28.1 MCHC (g/dL) Date Value 08/14/2024 35.0 RDW-CV (%) Date Value 08/14/2024 12.7 Platelet Count (k/uL) Date Value 08/14/2024 296 MPV (fL) Date Value 08/14/2024 8.9 (L) Glucose (mg/dL) Date Value 08/14/2024 504 (H) BUN (mg/dL) Date Value 08/14/2024 14 Creatinine (mg/dL) Date Value 08/14/2024 0.91 Sodium (mmol/L) Date Value 08/14/2024 134 (L) Potassium (mmol/L) Date Value 08/14/2024 4.4 Chloride (mmol/L) Date Value 08/14/2024 96 (L) CO2 (mmol/L) Date Value 08/14/2024 24 Protein, Total (g/dL) Date Value 08/14/2024 6.9 Albumin (g/dL) Date Value 08/14/2024 4.0 Calcium, Total (mg/dL) Date Value 08/14/2024 10.0 Alkaline Phosphatase (U/L) Date Value 08/14/2024 137 (H) Bilirubin, Total (mg/dL) Date Value 08/14/2024 0.8 AST (U/L) Date Value 08/14/2024 11 (L) ALT (U/L) Date Value 08/14/2024 12 DIAGNOSIS: (C20) Malignant neoplasm of rectum (HCC) (primary encounter diagnosis) Plan: MRI RECTUM WO/W IVCON, iv contrast (will be provided with radiology test), enteric contrast (will be provided with radiology test), CARCINOEMBRYONIC ANTIGEN, COMPLETE BLOOD COUNT AND DIFFERENTIAL, COMPREHENSIVE METABOLIC PANEL, IRON AND TIBC, FERRITIN, VITAMIN B12, FOLATE, SERUM (E11.69, Z79.4) Type 2 diabetes mellitus with other specified complication, with long-term current use of insulin (HCC) Plan: MRI RECTUM WO/W IVCON, iv contrast (will be provided with radiology test), enteric contrast (will be provided with radiology test), CARCINOEMBRYONIC ANTIGEN, COMPLETE BLOOD COUNT AND DIFFERENTIAL, COMPREHENSIVE METABOLIC PANEL, IRON AND TIBC, FERRITIN, VITAMIN B12, FOLATE, SERUM (F32.89) Other depression Plan: MRI RECTUM WO/W IVCON, iv contrast (will be provided with radiology test), enteric contrast (will be provided with radiology test), CARCINOEMBRYONIC ANTIGEN, COMPLETE BLOOD COUNT AND DIFFERENTIAL, COMPREHENSIVE METABOLIC PANEL, IRON AND TIBC, FERRITIN, VITAMIN B12, FOLATE, SERUM (L03.90) Wound cellulitis Plan: MRI RECTUM WO/W IVCON, iv contrast (will be provided with radiology test), enteric contrast (will be provided with radiology test), CARCINOEMBRYONIC ANTIGEN, COMPLETE BLOOD COUNT AND DIFFERENTIAL, COMPREHENSIVE METABOLIC PANEL, IRON AND TIBC, FERRITIN, VITAMIN B12, FOLATE, SERUM (C20) Rectal cancer (HCC) Plan: MRI RECTUM WO/W IVCON, iv contrast (will be provided with radiology test), enteric contrast (will be provided with radiology test), CARCINOEMBRYONIC ANTIGEN, COMPLETE BLOOD COUNT AND DIFFERENTIAL, COMPREHENSIVE METABOLIC PANEL, IRON AND TIBC, FERRITIN, VITAMIN B12, FOLATE, SERUM (N18.31) Stage 3a chronic kidney disease (HCC) Plan: MRI RECTUM WO/W IVCON, iv contrast (will be provided with radiology test), enteric contrast (will be provided with radiology test), CARCINOEMBRYONIC ANTIGEN, COMPLETE BLOOD COUNT AND DIFFERENTIAL, COMPREHENSIVE METABOLIC PANEL, IRON AND TIBC, FERRITIN, VITAMIN B12, FOLATE, SERUM PAST MEDICAL HISTORY Diagnosis Date Anxiety Carcinoma of vulva (HCC) Chronic back pain COVID-19 Depression Diabetes (HCC) GERD (gastroesophageal reflux disease) HPV in female Hypertension Ovarian cyst Panic disorder PONV (postoperative nausea and vomiting) Rectal bleeding Rectal cancer (HCC) Rectal mass Sleep apnea Vulval lesion PAST SURGICAL HISTORY Procedure Laterality Date ARTHROSCOPY KNEE DIAGNOSTIC W/WO SYNOVIAL BX SPX Left x2 ARTHRP KNE CONDYLE&PLATU MEDIAL&LAT COMPARTMENTS Left BACK SURGERY HX CHOLECYSTECTOMY HX COLONOSCOPY EGD W/O BRSH SPEC VARICIES INJ LIGATE FALLOPIAN TUBE NASAL ENDOS,DIAG,UNI/ BILATERAL PAST SURGICAL HISTORY OF Dissection of lymph node inguinal femoral PAST SURGICAL HISTORY OF Revision of Episiotomy PAST SURGICAL HISTORY OF 2020 Right Hemivulvectomy/Bilateral inguinal sentinal lymp node dissection TOTAL KNEE REPLACEMENT Left TUBAL LIGATION Social History Tobacco Use Smoking status: Former Types: Cigarettes Passive exposure: Past Smokeless tobacco: Never Substance Use Topics Alcohol use: Yes Comment: occasional Drug use: Never FAMILY HISTORY Problem Relation Age of Onset Diabetes Mother Stroke Mother Hypertension Father Uterine Cancer Maternal Grandmother Diabetes Maternal Grandfather Heart Attack Maternal Grandfather Dementia Paternal Grandmother Heart Attack Paternal Grandfather I spent a total of 40 minutes on the date of service which included preparing to see the patient, [id number] patient care, completing clinical documentation, obtaining and/or reviewing separately obtained history, performing a medically appropriate examination, counseling and educating the patient/family/caregiver, ordering medications, tests, or procedures, communicating with other HCPs (not separately reported), independently interpreting results (not separately reported), communicating results to the patient/family/caregiver, and care coordination (not separately reported). Blu Tellez MD, CPE [facility]ology [facility] Provided at: [place], [place] Scribe Attestation: This note was scribed by Ivory Van on August 14, 2024 under the direction and supervision of Dr. Blu Tellez. I attest that all of the information documented is correct to the best of my knowledge. Provider Attestation: I, Blu Tellez MD, attest that all information documented by the above scribe is correct, and was supervised by me and under my direction. CC: Keaton Hu, [address] [facility] [id number] [address] documented in this encounter [facility] 08-14-2024 Note [facility] 08-12-2024 Telephone encounter Note Patient states that she will not be having surgery so the appointment to follow up in two months is not necessary. She states she would like to come in as scheduled this to go over her plan of care now that her cancer is gone. YESSENIA Bill [facility] 08-12-2024 Miscellaneous Notes Patient states that she will not be having surgery so the appointment to follow up in two months is not necessary. She states she would like to come in as scheduled this to go over her plan of care now that her cancer is gone. YESSENIA Bill Message left for patient to call back. Left a message to call back. We will need to reschedule next week's appointment and labs for 2 months. YESSENIA Bill Images from the original note were not included. Please call pt and schedule a follow up visit with Dr Talley in 2 months. Thanks CIPRIANO Parks Vivek, MD Trunzo, Joseph A, MD; [place], CIPRIANO; P [facility] Clerical Pool Thanks Jas Galvan, Team can we arrange to call her in 2 months and make sure she will be following up? I'm fine with a telephone appointment too. documented in this encounter [facility] 08-11-2024 Telephone encounter Note Message left for patient to call back. [facility] 08-08-2024 Telephone encounter Note Left a message to call back. We will need to reschedule next week's appointment and labs for 2 months. YESSENIA Bill [facility] 08-08-2024 Telephone encounter Note Images from the original note were not included. Please call pt and schedule a follow up visit with Dr Talley in 2 months. Thanks [place] Bowens, RN Blu Tellez MD Trunzo, Joseph A, MD; [place], CIPRIANO; P [facility] Clerical Pool Thanks Jas Galvan, Team can we arrange to call her in 2 months and make sure she will be following up? I'm fine with a telephone appointment too. [facility] Work Phone: 08-07-2024 Note [facility] 07-30-2024 Telephone encounter Note Call placed to patient re: recent Flex Sig procedure and MRI results. No answer. Left message that based on conversation with Dr Zurita on 07/29, surgery cancelled. Patient placed on tumor board for discussion 08/07. Office number provided for return call. Message sent to OR scheduling to cancel surgery on 08/05 [facility] 07-30-2024 Miscellaneous Notes Call placed to patient re: recent Flex Sig procedure and MRI results. No answer. Left message that based on conversation with Dr Zurita on 07/29, surgery cancelled. Patient placed on tumor board for discussion 08/07. Office number provided for return call. Message sent to OR scheduling to cancel surgery on 08/05 documented in this encounter [facility] 07-30-2024 Telephone encounter Note Patient was scheduled for in person [facility] appt at 2:40 PM today. Patient did not check in for appt, called patient at 2:47 PM to see if they were planning on coming. Left voicemail with appt information and [facility] phone number. However after leaving voicemail I saw this Telephone Encounter that patient wants to cancel her 08/05 surgery, see message below. Surgeon s office was notified of missed appointment. Sienna Echols PA-C [facility] Work Phone: 07-30-2024 Miscellaneous Notes Patient was scheduled for in person [facility] appt at 2:40 PM today. Patient did not check in for appt, called patient at 2:47 PM to see if they were planning on coming. Left voicemail with appt information and [facility] phone number. However after leaving voicemail I saw this Telephone Encounter that patient wants to cancel her 08/05 surgery, see message below. Surgeon s office was notified of missed appointment. Sienna Echols PA-C [facility] [place]. Pt calls stating her family and friends [facility] and God healed her. Pt states she no longer has cancer and no longer needs to have surgery, and there's nothing there to have any further treatment for. Pt also states she saw Dr Zurita yesterday who verified that her cancer is gone and she no longer needs to have surgery. Pt requesting her upcoming appointments to be cancelled. Ok to cancel her surgical testing for today and appointment on 08/05 for surgery? Please advise Little Bowens RN documented in this encounter [facility] 07-30-2024 Telephone encounter Note [place]. [facility] 07-30-2024 Telephone encounter Note Pt calls stating her family and friends [facility] Sunday and God healed her. Pt states she no longer has cancer and no longer needs to have surgery, and there's nothing there to have any further treatment for. Pt also states she saw Dr Zurita yesterday who verified that her cancer is gone and she no longer needs to have surgery. Pt requesting her upcoming appointments to be cancelled. Ok to cancel her surgical testing for today and appointment on 08/05 for surgery? Please advise Little Bowens RN [facility] Work Phone: 07-29-2024 History and physical note PROCEDURAL SEDATION HISTORY AND PHYSICAL EXAM SERVICE DATE: 07/29/2024 SERVICE TIME: 12:58 PM Subjective HPI: This is a 68 year old female who presents with hx of rectal cancer PAST ANESTHESIA HISTORY: No history of adverse event PAST MEDICAL HISTORY Diagnosis Date Anxiety Carcinoma of vulva (HCC) Chronic back pain COVID-19 Depression Diabetes (HCC) GERD (gastroesophageal reflux disease) HPV in female Hypertension Ovarian cyst Panic disorder PONV (postoperative nausea and vomiting) Rectal bleeding Rectal cancer (HCC) Rectal mass Sleep apnea Vulval lesion PAST SURGICAL HISTORY Procedure Laterality Date ARTHROSCOPY KNEE DIAGNOSTIC W/WO SYNOVIAL BX SPX Left x2 ARTHRP KNE CONDYLE&PLATU MEDIAL&LAT COMPARTMENTS Left BACK SURGERY HX CHOLECYSTECTOMY HX COLONOSCOPY EGD W/O BRSH SPEC VARICIES INJ LIGATE FALLOPIAN TUBE NASAL ENDOS,DIAG,UNI/ BILATERAL PAST SURGICAL HISTORY OF Dissection of lymph node inguinal femoral PAST SURGICAL HISTORY OF Revision of Episiotomy PAST SURGICAL HISTORY OF 2019 Right Hemivulvectomy/Bilateral inguinal sentinal lymp node dissection TOTAL KNEE REPLACEMENT Left TUBAL LIGATION Prior to Admission medications as of 07/29/24 1201 Medication Sig Last Dose Taking clobetasol (TEMOVATE) 0.05 % cream Apply 1 Application to affected area two times a day. 07/28/2024 Yes metoprolol tartrate, short acting, (LOPRESSOR) 50 mg tablet Take 50 mg by mouth two times a day. 07/28/2024 at 3:00 PM Yes aspirin, enteric coated (ASPIRIN, ENTERIC COATED) 81 mg EC tablet Take 81 mg by mouth every other day. Past Week Yes ferrous sulfate 325 mg (65 mg iron) tablet Take 325 mg by mouth every 48 hours. 07/26/2024 Yes insulin glargine (LANTUS SOLOSTAR U-100 INSULIN) 100 unit/mL (3 mL) Inject 80 Units subcutaneously daily at bedtime. 07/28/2024 Bedtime Yes irbesartan (AVAPRO) 75 mg tablet Take 75 mg by mouth daily at bedtime. 07/28/2024 at 3:00 PM Yes insulin lispro (HUMALOG KWIKPEN INSULIN) 100 unit/mL inpn Inject subcutaneously as directed. 07/28/2024 Evening Yes amLODIPine (NORVASC) 10 mg tablet Take 10 mg by mouth once daily. 07/28/2024 Yes neomycin 500 mg tablet Take 2 tablets by mouth at 6 pm, again at 7 pm and at 11 pm the evening prior to surgery metroNIDAZOLE (FLAGYL) 500 mg tablet Take 1 tablet by mouth at 6 pm, another at 7 pm and again at 11 pm, the evening prior to surgery Unknown ondansetron (ZOFRAN) 8 mg tablet Take 1 tablet by mouth every 8 hours as needed for nausea/vomiting. Unknown prochlorperazine (COMPAZINE) 10 mg tablet Take 1 tablet by mouth every 6 hours as needed. Unknown capecitabine (XELODA) 500 mg tablet Take 5 tablets (2,500 mg) by mouth two times a day. 14 days on 7 days off Patient not taking: Reported on 07/29/2024 Not Taking prochlorperazine (COMPAZINE) 10 mg tablet Take 1 tablet by mouth every 6 hours as needed. Unknown polyethylene glycol 3350 17 gram packet Take 17 g by mouth. Unknown semaglutide (OZEMPIC) 1 mg/dose (2 mg/1.5 mL) pen Inject 1 mg subcutaneously one time a week. 07/18/2024 atorvastatin (LIPITOR) 40 mg tablet Take 40 mg by mouth daily at bedtime. Patient not taking: Reported on 07/29/2024 Not Taking Mirtazapine (REMERON) 7.5 mg tablet Take 7.5 mg by mouth once daily. 07/27/2024 JANUMET XR 50-1,000 mg TM24 Take 1 tablet by mouth every afternoon. Patient not taking: Reported on 07/29/2024 Not Taking spironolactone (ALDACTONE) 25 mg tablet Take 50 mg by mouth every morning. Patient not taking: Reported on 07/29/2024 Not Taking cannabidiol, CBD, (CANNABIDIOL ORAL) Take 10 mg by mouth daily at bedtime. Unknown ondansetron (ZOFRAN) 8 mg tablet Take 1 tablet by mouth every 8 hours as needed for nausea/vomiting. Unknown busPIRone (BUSPAR) 10 mg tablet Take by mouth. Unknown meclizine (ANTIVERT) 25 mg tab Take by mouth at bedtime as needed. 07/27/2024 nystatin (MYCOSTATIN) ointment Apply 1 Application to affected area. Unknown Acetaminophen 500 mg cap Take 500 mg by mouth as needed. 07/27/2024 ALLERGIES Allergen Reactions Codeine Other: See Comments Nausea Tramadol Vomiting Objective PHYSICAL EXAM: The remainder of the physical exam is noncontributory. AIRWAY: Airway Visualization of Uvula: Yes Mouth opening greater than 2 fingerbreadths: Yes Neck Full Range of Motion: Yes LUNGS: Lungs clear to auscultation CARDIAC: Regular rhythm, Assessment/Plan ASA Class: ASA Class: Patient with mild systemic disease Active Problems: * No active hospital problems. * Resolved Problems: * No resolved hospital problems. * Exogenous Class 1 Obesity Medication and Non-Pharmacologic VTE Prophylaxis/Anticoagulants VTE Prophylaxis: VTE prophylaxis appropriate Provisional Diagnosis/Treatment Plan: post treatment assessment of rectal cancer. Flexible sigmoidoscopy SIGNATURE: Evans Zurita MD PATIENT NAME: Parvez Riggins DATE: July 29, 2024 TIME: 12:58 PM [facility] 07-29-2024 History and physical note PROCEDURAL SEDATION HISTORY AND PHYSICAL EXAM SERVICE DATE: 07/29/2024 SERVICE TIME: 12:58 PM Subjective HPI: This is a 68 year old female who presents with hx of rectal cancer PAST ANESTHESIA HISTORY: No history of adverse event PAST MEDICAL HISTORY Diagnosis Date Anxiety Carcinoma of vulva (HCC) Chronic back pain COVID-19 Depression Diabetes (HCC) GERD (gastroesophageal reflux disease) HPV in female Hypertension Ovarian cyst Panic disorder PONV (postoperative nausea and vomiting) Rectal bleeding Rectal cancer (HCC) Rectal mass Sleep apnea Vulval lesion PAST SURGICAL HISTORY Procedure Laterality Date ARTHROSCOPY KNEE DIAGNOSTIC W/WO SYNOVIAL BX SPX Left x2 ARTHRP KNE CONDYLE&PLATU MEDIAL&LAT COMPARTMENTS Left BACK SURGERY HX CHOLECYSTECTOMY HX COLONOSCOPY EGD W/O BRSH SPEC VARICIES INJ LIGATE FALLOPIAN TUBE NASAL ENDOS,DIAG,UNI/ BILATERAL PAST SURGICAL HISTORY OF Dissection of lymph node inguinal femoral PAST SURGICAL HISTORY OF Revision of Episiotomy PAST SURGICAL HISTORY OF 2019 Right Hemivulvectomy/Bilateral inguinal sentinal lymp node dissection TOTAL KNEE REPLACEMENT Left TUBAL LIGATION Prior to Admission medications as of 07/29/24 1201 Medication Sig Last Dose Taking clobetasol (TEMOVATE) 0.05 % cream Apply 1 Application to affected area two times a day. 07/28/2024 Yes metoprolol tartrate, short acting, (LOPRESSOR) 50 mg tablet Take 50 mg by mouth two times a day. 07/28/2024 at 3:00 PM Yes aspirin, enteric coated (ASPIRIN, ENTERIC COATED) 81 mg EC tablet Take 81 mg by mouth every other day. Past Week Yes ferrous sulfate 325 mg (65 mg iron) tablet Take 325 mg by mouth every 48 hours. 07/26/2024 Yes insulin glargine (LANTUS SOLOSTAR U-100 INSULIN) 100 unit/mL (3 mL) Inject 80 Units subcutaneously daily at bedtime. 07/28/2024 Bedtime Yes irbesartan (AVAPRO) 75 mg tablet Take 75 mg by mouth daily at bedtime. 07/28/2024 at 3:00 PM Yes insulin lispro (HUMALOG KWIKPEN INSULIN) 100 unit/mL inpn Inject subcutaneously as directed. 07/28/2024 Evening Yes amLODIPine (NORVASC) 10 mg tablet Take 10 mg by mouth once daily. 07/28/2024 Yes neomycin 500 mg tablet Take 2 tablets by mouth at 6 pm, again at 7 pm and at 11 pm the evening prior to surgery metroNIDAZOLE (FLAGYL) 500 mg tablet Take 1 tablet by mouth at 6 pm, another at 7 pm and again at 11 pm, the evening prior to surgery Unknown ondansetron (ZOFRAN) 8 mg tablet Take 1 tablet by mouth every 8 hours as needed for nausea/vomiting. Unknown prochlorperazine (COMPAZINE) 10 mg tablet Take 1 tablet by mouth every 6 hours as needed. Unknown capecitabine (XELODA) 500 mg tablet Take 5 tablets (2,500 mg) by mouth two times a day. 14 days on 7 days off Patient not taking: Reported on 07/29/2024 Not Taking prochlorperazine (COMPAZINE) 10 mg tablet Take 1 tablet by mouth every 6 hours as needed. Unknown polyethylene glycol 3350 17 gram packet Take 17 g by mouth. Unknown semaglutide (OZEMPIC) 1 mg/dose (2 mg/1.5 mL) pen Inject 1 mg subcutaneously one time a week. 07/18/2024 atorvastatin (LIPITOR) 40 mg tablet Take 40 mg by mouth daily at bedtime. Patient not taking: Reported on 07/29/2024 Not Taking Mirtazapine (REMERON) 7.5 mg tablet Take 7.5 mg by mouth once daily. 07/27/2024 JANUMET XR 50-1,000 mg TM24 Take 1 tablet by mouth every afternoon. Patient not taking: Reported on 07/29/2024 Not Taking spironolactone (ALDACTONE) 25 mg tablet Take 50 mg by mouth every morning. Patient not taking: Reported on 07/29/2024 Not Taking cannabidiol, CBD, (CANNABIDIOL ORAL) Take 10 mg by mouth daily at bedtime. Unknown ondansetron (ZOFRAN) 8 mg tablet Take 1 tablet by mouth every 8 hours as needed for nausea/vomiting. Unknown busPIRone (BUSPAR) 10 mg tablet Take by mouth. Unknown meclizine (ANTIVERT) 25 mg tab Take by mouth at bedtime as needed. 07/27/2024 nystatin (MYCOSTATIN) ointment Apply 1 Application to affected area. Unknown Acetaminophen 500 mg cap Take 500 mg by mouth as needed. 07/27/2024 ALLERGIES Allergen Reactions Codeine Other: See Comments Nausea Tramadol Vomiting Objective PHYSICAL EXAM: The remainder of the physical exam is noncontributory. AIRWAY: Airway Visualization of Uvula: Yes Mouth opening greater than 2 fingerbreadths: Yes Neck Full Range of Motion: Yes LUNGS: Lungs clear to auscultation CARDIAC: Regular rhythm, Assessment/Plan ASA Class: ASA Class: Patient with mild systemic disease Active Problems: * No active hospital problems. * Resolved Problems: * No resolved hospital problems. * Exogenous Class 1 Obesity Medication and Non-Pharmacologic VTE Prophylaxis/Anticoagulants VTE Prophylaxis: VTE prophylaxis appropriate Provisional Diagnosis/Treatment Plan: post treatment assessment of rectal cancer. Flexible sigmoidoscopy SIGNATURE: Evans Zurita MD PATIENT NAME: Parvez Riggins DATE: July 29, 2024 TIME: 12:58 PM documented in this encounter [facility] 07-24-2024 Telephone encounter Note Call placed to patient re: upcoming Flex Sig scheduled date of 07/29. No answer, left detailed message re: prep and to refer to her My Chart messages regarding upcoming tests/procedures/preparations for surgery [facility] 07-24-2024 Miscellaneous Notes Call placed to patient re: upcoming Flex Sig scheduled date of 07/29. No answer, left detailed message re: prep and to refer to her My Chart messages regarding upcoming tests/procedures/preparations for surgery documented in this encounter [facility] 07-24-2024 Telephone encounter Note Alerted that patient has not seen any of the My Chart messages re: upcoming procedure 07/29 and surgery 08/05. LM on voicemail to read messages and return call to office. Call placed to patient's daughter, her emergency contact. Discussed bowel prep and antibiotics that will need to be picked up prior to surgery. 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 She will speak with Parvez and help her to review messages and information. All information mailed to her home for further reference. She is appreciative of the call. [facility] 07-24-2024 Miscellaneous Notes Alerted that patient has not seen any of the My Chart messages re: upcoming procedure 07/29 and surgery 08/05. LM on voicemail to read messages and return call to office. Call placed to patient's daughter, her emergency contact. Discussed bowel prep and antibiotics that will need to be picked up prior to surgery. 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 She will speak with Parvez and help her to review messages and information. All information mailed to her home for further reference. She is appreciative of the call. documented in this encounter [facility] 07-23-2024 Telephone encounter Note Scheduled for follow uop with Dr Blu Tellez on 08-14-24. Pt to check her Mychart for all appts [facility] 07-23-2024 Miscellaneous Notes Scheduled for follow uop with Dr Blu Tellez on 08-14-24. Pt to check her Mychart for all appts VV with Dr Zurita on 07-21-24. Pt needs follow up with Dr Talley after surgery with Dr Zurita. Left Parvez a detailed message that Dr Zurita's office has left her 2 messages to call them to schedule this appt. Dr Tlelez is referring Parvez Riggins back to see Dr Zurita to plan for surgery. Thanks for your help.b documented in this encounter [facility] 07-22-2024 Note [facility] 07-22-2024 History of Presen t illness Narrative AMBULATORY PATIENT EDUCATION NOTE Patient had distance visit with Dr Zurita on 07/21. This nurse was present during video visit. Call placed to patient today for follow up, no answer. LM on the following: She was aware at visit on 07/21 that all information to be sent via MY Chart. She was aware at visit on 07/21 she will be scheduled for a Flex Sig. At this time, we are awaiting confirmation for Flex Sig at [facility] on either 07/29 or 07/30. Will return call to patient to confirm review of pre surgery information SURGICAL PREPARATION: Robotic Laparoscopic low anterior resection with diverting loop ileostomy SURGERY DATE: August 05Sunday DIAGNOSIS: rectal cancer READINESS TO LEARN COGNITIVE ABILITY: Alert and oriented MOTIVATION TO LEARN: Interested FAMILY SUPPORT: Low - Inconsistent family involvement- daughter has recently been involved in patient's medical care PHYSICAL LIMITATIONS AFFECTING LEARNING: Fatigue METHOD OF INSTRUCTION: Verbal and Written instruction - handouts provided in blue folder SUPPLEMENTAL MATERIAL: -location of surgery/ date - patient aware date is tentative and subject to change -[facility]ACC appointment needed with in 30 days of surgery -bowel preparations prior to surgery- May have sips of water up until 2 hrs of arrival time for surgery -antibiotics preoperatively -antimicrobial shower/wipes use- Dial soap CLEARANCE: PACC WOUND CARE -post operative wound care expectations reviewed - ostomy care - patient aware to be scheduled for WOCN evaluation and ostomy education/marking on morning of surgery. Video links sent to patient for reference DIET- handouts provided on diet post op: -Post op diet following colorectal surgery = handout reviewed and provided to patient. Patient (and Family member-daughter) acknowledges and understands. They have contact phone number for further concerns and for post operative questions. Staff Message sent to OR construction scheduler with procedure/time/date for patient. Electronically Signed By: LINDSEY Reagan, RN [facility] Specialty Laborer Pipelines documented in this encounter [facility] 07-21-2024 Note [facility] 07-21-2024 History of Presen t illness Narrative VIRTUAL VISIT FOLLOW UP I have communicated my name and active licensure. The patient's identity and physical location were verified at the time of this visit. Either the patient or their legal safety representative has been informed of the risks and benefits of -- and alternatives to -- treatment through a remote evaluation and consents to proceed with the evaluation remotely. I had a virtual visit with Ms. Riggins today for follow up of rectal cancer She started YANIV on 10/16/2023-11/23/2023 - Xeloda and XRT Started Capox on 01/31/2024 x 3 cycles UPDATED HISTORY: Depression-referral to [facility] Leg wound-referral placed to wound care Post dental extraction Today's visit- Patient states overall she is doing fairly well. She is eating and having regular bowel function without difficulty. She had difficulty with the chemotherapy and has been stopped. She is here to discuss surgery. IMAGING/TESTIN07/01/2024 MRI rectum Since 01/10/2024 and 09/04/2023, post treatment primary tumor assessment: Incomplete response (likely residual tumor). -Decreased size and bulk of mid rectal mass with increasing scar/fibrosis. mrTRG: Grade 3 - Moderate response -Suspicious Mesorectal lymph nodes: No. -Suspicious Extramesorectal lymph nodes: No. REVIEW OF SYSTEMS: General - Normal, healthy, cooperative, in no acute distress Able to interact verbally by video conference REVIEWED ITEMS 1. MRI results I reviewed the following available records: MRI imaging pelvis. IMPRESSION Rectal cancer Status post neoadjuvant therapy that is been complicated by multiple delays related to treatment intolerance and other medical issues that have come up during her treatment RECOMMENDATION: -I did detail discussion with the patient and her daughter regarding the next steps in treatment. We reviewed her MRI results which did suggest residual disease though she did have a good response to therapy. -First I would like to repeat a flexible sigmoidoscopy to visually assess the disease at this time. Following that we will tentatively plan for a robotic assisted laparoscopic low anterior resection with a temporary diverting loop ileostomy. We discussed what to expect with surgery including risks and benefits. We also discussed timeline for having the ileostomy reversed and bowel function that she can expect following a low anterior resection After answering the question she does want to proceed as recommended. -We will plan for preadmission testing and a virtual ostomy education session. With her transportation difficulties because of her distance we will plan for stoma marking on the day of surgery. I spent more than 25 minutes [id number] with the patient and over half the time was devoted to counseling and/or coordination of care. Evans Zurita MD documented in this encounter [facility] 07-15-2024 Telephone encounter Note VV with Dr Zurita on 07-21-24. Pt needs follow up with Dr Talley after surgery with Dr Zurita. [facility] 07-14-2024 Telephone encounter Note Second call placed to patient for follow up rectal cancer. Appointment needed post YANIV completion. No answer. Left message to contact office to schedule appointment with Dr Zurita. Office number provided for call back. [phone]. [facility] 07-14-2024 Miscellaneous Notes Second call placed to patient for follow up rectal cancer. Appointment needed post YANIV completion. No answer. Left message to contact office to schedule appointment with Dr Zurita. Office number provided for call back. [phone]. documented in this encounter [facility] 07-11-2024 Telephone encounter Note SOCIAL WORK FOLLOW UP NOTE: [facility] Date of service:07/11/24 PLAN: Continue follow up as needed Assigned SW listed in Care Team tab: Yes Patient called and left a VM asking about when will she hear from the surgeon's office. SW returned her call and left her a VM. Awaiting a call back. VICENTE Nash [facility] 07-11-2024 Miscellaneous Notes [facility]IAL WORK FOLLOW UP NOTE[facility] Date of service:07/11/24 PLAN: Continue follow up as needed Assigned SW listed in Care Team tab: Yes Patient called and left a VM asking about when will she hear from the surgeon's office. SW returned her call and left her a VM. Awaiting a call back. VICENTE Nash documented in this encounter [facility] 07-10-2024 Telephone encounter Note Left Parvez a detailed message that Dr Zurita's office has left her 2 messages to call them to schedule this appt. [facility] 07-10-2024 Telephone encounter Note Social Work Problem Referral Note INFORMATION/REFERRAL : Parvez Riggins 68 year old female was referred by physician - Dr. Tellez to [facility] Social Work for the following reason(s): community services/resources and financial assistance - meals, parking, etc. IDENTIFIED PROBLEMS/NEEDS: Financial Information Intervention/Referral to be provided:Information for community resources/agencies IMPRESSION/PLAN:Referral received to talk with Patient about community resources to help restore heat to her home. SW called Patient to discuss and had to leave a VM requesting a call back. Awaiting a call from the Patient. Assigned SW listed in Care Team tab: Yes VICENTE Nash [facility] 07-10-2024 Miscellaneous Notes Social Work Problem Referral Note INFORMATION/REFERRAL : Parvez Riggins 68 year old female was referred by physician - Dr. Tellez to [facility] Social Work for the following reason(s): community services/resources and financial assistance - meals, parking, etc. IDENTIFIED PROBLEMS/NEEDS: Financial Information Intervention/Referral to be provided:Information for community resources/agencies IMPRESSION/PLAN:Referral received to talk with Patient about community resources to help restore heat to her home. SW called Patient to discuss and had to leave a VM requesting a call back. Awaiting a call from the Patient. Assigned SW listed in Care Team tab: Yes VICENTE Nash documented in this encounter [facility] 07-09-2024 Telephone encounter Note Call placed to patient for follow up rectal cancer. No answer. Left message to contact office to schedule appointment with Dr Zurita following completion of YANIV. Office number provided for call back. [facility] 07-09-2024 Miscellaneous Notes Call placed to patient for follow up rectal cancer. No answer. Left message to contact office to schedule appointment with Dr Zurita following completion of YANIV. Office number provided for call back. documented in this encounter [facility] 07-08-[address] Tellez is referring Parvez Riggins back to see Dr Zurita to plan for surgery. Thanks for your help.b [facility] 07-08-2024 Instructions Ivory Van - 07/08/2024 1:21 PM EST Return to Dr. Zurita to consider surgical treatment options RTC after surgery Labs same day Consult behavioral health for depression Consult wound care for right leg wound documented in this encounter [facility] 07-08-2024 History of Presen t illness Narrative Images from the original note were not included. NAME: Parvez Riggins [facility] NO.: [id number] DATE OF SERVICE: July 08, 2024 (Devin) Some elements in this clinic note that are critical to medical decision making have been carefully reviewed and included from a prior clinic note dated: June 04, 2024 (Winston) Referring Provider: Arturo Mcdonald MD Additional Clinicians involved in Parvez Riggins's care: Evans Zurita DIAGNOSIS: Rectal Cancer- MRI Staged T3a,N+,M0- RHYS ASSESSMENT: 68 year old female here for follow up. Rectal cancer-started planned YANIV. Started radiation and xeloda on October 16, 2023. She is doing well. She does have fatigue but otherwise no major side effects. She will complete xeloda and xrt on 11/23/2023. I have arranged for a repeat MRI rectum and a follow up with [facility]. She has decided she would like to maintain her care in [place] and I will offer her a follow up with a new oncologist in 2-3 weeks to plan her YANIV therapy. She does not have a port and wishes to proceed without one. Proceed with CAPOX. 5 mm left-sided nodular opacity on initial staging CT- repeat CT chest November 2023 negative. Post dental extraction. DM2--not well controlled. She will follow up with her PCP for this - blood sugar is high today but will need to resume ozempic and see her PCP. Depression-referral to behavioral health Leg wound-referral placed to wound care PLAN: Return to Dr. Zurita to consider surgical treatment options RTC after surgery Labs same day Continue to follow with behavioral health for depression Continue to follow wound care for right leg wound HPI: CASE HISTORY: Reverse Chronological Order 07/01/2024 - MRI Rectum: Since 01/10/2024 and 09/04/2023, post treatment primary tumor assessment: Incomplete response (likely residual tumor). Decreased size and bulk of mid rectal mass with increasing scar/fibrosis. mrTRG: Grade 3 - Moderate response Suspicious Mesorectal lymph nodes: No. Suspicious Extramesorectal lymph nodes: No. 06/24/2024 - ER at [facility] for abdominal pain 06/23/2024 - CT CAP: Chest: No CT evidence of new metastatic disease in the chest. Unchanged pulmonary nodules measuring up to 5 mm. No new pulmonary nodules or masses are identified. A/P: Findings compatible with acute sigmoid diverticulitis. There is no intraperitoneal free air. A small amount of nonspecific fluid is noted within the adjacent sigmoid mesentery. No CT evidence of metastatic disease in the abdomen/pelvis. Unchanged 9 mm cyst at the pancreatic tail, perhaps representing a side branch IPMN. Similar-appearing 3 cm cyst in the right adnexa. Additional stable incidental findings are detailed above including a small hiatal hernia. 06/08/2024 - CT A/P: No acute findings in the abdomen pelvis. Colonic diverticulosis without acute diverticulitis. 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 This was not present when compared to CT from 2010. Based on ACR criteria, recommend imaging every 2 years for approximately 10 years and evaluate for stability. 06/08/2024 - ER at [facility] for abdominal pain 06/04/2024 - C3 D1 CAPOX 03/20/2024 - C2 D1 CAPOX 01/31/2024 - CAPOX C1 D1 01/10/2024 - MRI Rectum: Since 09/04/23, post treatment primary tumor assessment: Incomplete response (likely residual tumor). Previously noted polypoid masslike rectal neoplasm has decreased with residual wall thickening. Interval resolution of previously noted mesorectal lymph nodes. mrTRG: Grade 3 - Moderate response Suspicious Mesorectal lymph nodes: No. Suspicious Extramesorectal lymph nodes: No. 11/23/2023 - CT Chest: No metastatic disease in the chest. 10/28/2023 - CT A/P: Moderate amount of stool in the colon with a large amount of stool in the colorectal junction. There is been interval decreased size of the distal rectal mass however there is luminal narrowing which could represent a component of stricture formation however there is no significant proximal colonic dilatation. Consider nonemergent fluoroscopic barium enema for further assessment. 10/16/2023-11/23/2023 - Xeloda and XRT, planned YANIV 09/04/2023 - MRI Rectum: MID RECTAL SEMIANNULAR MASS. Stage: T3a N+ MRF: Clear (tumor margin >2 mm from MRF), however a metastatic mesorectal lymph node abuts the MRF Sphincter involvement: No. Suspicious extra mesorectal lymph nodes: No. EMVI: No. 07/16/2023 - CT CAP: Chest: Left-sided nodular opacities measuring up to 5 mm. Metastatic disease is not excluded. Recommend continued attention to these areas on follow-up exams. No evidence of intrathoracic lymphadenopathy. A/P: Large rectal mass with numerous enlarged perirectal nodes, suspicious for ami metastatic disease. No additional findings to suggest distant abdominal or pelvic metastatic disease. Linear bandlike hypodensity within the spleen, suggestive of a splenic infarct. 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 06/26/2023 - Colonoscopy: Rectal mass, procedure not specified: - 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 Anal verge, procedure not specified: - Inflammatory cloacogenic polyp, ulcerated, negative for dysplasia or carcinoma. Updated Visit, July 08, 2024: Parvez returns for a follow up. Restaging imaging showed no evidence of metastatic disease however only incomplete response in the primary tumor. She is not tolerating chemotherapy well due to issues at the IV site. She is in agreement to meet with Dr. Zurita to consider surgical treatment options. She denies any pain at this time. She continues following with the wound center for her leg. She is having a difficult time in her personal life due to the loss of her in 2020 and her father in 11/2023. She is also of limited financial means and hasn't been able to live in her house because there is no heat. She reports new memory issues, including remembering to take her prescribed medications. Updated Visit, June 04, 2024: It has been 11 weeks since her cycle 2 of Capox. She reports that it was due to illness, personal issues and weather-related. She understands that her cancer may grow without treatment and she would like to resume. She is inquiring about a referral to behavioral health at [facility] in [place] for counseling. She has many past issues to deal with she reports. Her bowels are moving fine. She denies any pain. She is eating and drinking well. She reports that she took 3 days of Bactrim for her leg wound and it made her sick, so she stopped it. She would like to see wound care Updated Visit, May 16, 2024: Parvez returns today for consideration of C3D1 of CAPOX. She skipped her treatment last month and wanted to take a break. She reports today she is very tired and fatigue. At the beginning of the month she was caring a mattress and she fell on a quoc spring- see image below.Up to date on tetanus. Will prescribe Bactrim. Followed up with her PCP. hose tender and slightly reddened. Patient has been down due to the holidays. She feels excluded from her family Having a hard time with her daughter. Explained to patient how to correctly take Xeloda. Continues to have neuropathy in bilateral feet- Not getting worse. CBC appropriate for treatment today. She will see our social insurance analyst today. No diarrhea or constipation. No bleeding or bruising. No fever, chills, night sweats. Patient wishes not to proceed with treatment today. We will hold Xeloda and oxaliplatin today. She wishes to RTC in one week. Updated Visit, April 10, 2024: Parvez Riggins returns for scheduled follow-up and treatment. Today she states that she is not doing well and does not want treatment today. She has a lot of personal issues going on. She has been having family issues. Her daughter was recently diagnosed with bipolar. The patient states that her daughter told her I am the way I and because of you . She complains of being fatigued she is not sleeping well. She states that her brain will not shut off . She has some nausea with treatment. No vomiting. She denies fevers, chills, night sweats and signs/symptoms of infection. No bleeding or abnormal bruising. Updated Visit, March 20, 2024: Had an accident last time and was severely hypokalemic - went home before we saw her. Her last infusion site on her left hand still bothering her from oxaliplatin. On a positive note - her daughter is trying to improve their relationship again. Labs are safe to proceed. Updated Visit, January 31, 2024: Parvez returns today to start CAPOX. She admits she is nervous to start treatment and that she would not like surgery in the future. We discussed her mental health and her familial relationships. I recommended she follow up with our social insurance analyst as she can also assist with transportation needs. She is very involved with her anabaptist and may reach out to them for emotional support. I also advised her to reconsider surgical intervention as this disease is curable. Initial Visit, January 15, 2024: Transition of Care Parvez Riggins presents today to transition her care following Dr. Mcdonald's relocation. MRI of the rectum shows incomplete response - she is in agreement to continue treatment with CAPOX. We discussed potential AEs, including cold-induced neuropathy. 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 Her therapy dog is known as Enrique and is 10 years old. November 21, 2023: Parvez returns for follow up. Overall she is doing well with her treatments. She denies diarrhea, however she does sometimes lose bowels when she doesn't expect it. Denies any mucositis or HFS. She is scheduled to finish radiation on 11/23/2023. October 31, 2023: Parvez returns for follow up. Since her last visit, She did develops some abdominal pain and went to the ER 10/28/23. Work up revealed moderate amount of stool in the colon with a large amount of stool int he colorectal junction on CTs. She was given an enema which helped. She does admit that she did not start her xeloda pills until about 4-5 days after radiation started. She is no taking them regularly. She is having fatigue.Denies any rectal bleeding. October 16, 2023: Parvez Riggins is a 68 year old year old female here for follow up. She feels better after addressing her dental issues. She had to have some tooth extractions. Otherwise she tolerated her first radiation well. She has not taken her Xeloda yet. September 11, 2023: Parvez Riggins is a 68 year old year old female here for follow up. She does have some bloating as well as mucous. Denies any fevers and or chills. Denies any abdominal pain as well. HPI, July 10, 2023: Ms. Riggins reports that she saw her PCP in May with the complaint of mucus in her stool. She endorses pain with defecation and some subtle blood. She subsequently underwent a colonoscopy which revealed a large fungating mass in the mid rectum and also a 10mm polyp in the anus,. 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 A repeat colonoscopy with biopsy and tattoo marking was performed by surgery.CEA elevated at 4.5 ng/mL.She has occasional bleeding. REVIEW OF SYSTEMS Per HPI and otherwise negative by full review of organ systems. ECOG PERFORMANCE STATUS: PHYSICAL EXAMINATION: Vitals: BP 154/81 Pulse 90 Temp (Src) 97.5 (Temporal) Resp 16 Ht 5' 7.717 (1.72m) Wt 216 lb 11.4 oz (98.3kg) SpO2 96% BMI 33.23 kg/(m^2). Body surface area is 2.17 meters squared. Exam limited to gross visualization where appropriate. Gen.: This is an age-appropriate patient in no acute distress. Head: Appears atraumatic with no visible lesions. Eyes: Pupils equally round and reactive to light, extraocular muscles are intact. Neck: Supple. Respiratory: Appears to be respiring comfortably. Neurologic: Nonfocal to gross visualization. Alert and oriented 3. Psychiatric: No evidence of inappropriate anxiety or depression. Skin: Visible areas of skin without rash, lesions, wounds or petechiae. Excoriated wound with bruising to right calf on 05/16/2024: ALLERGIES: ALLERGIES Allergen Reactions Codeine Other: See Comments Nausea Tramadol Vomiting MEDICATIONS: ondansetron (ZOFRAN) 8 mg tablet Take 1 tablet by mouth every 8 hours as needed for nausea/vomiting. prochlorperazine (COMPAZINE) 10 mg tablet Take 1 tablet by mouth every 6 hours as needed. capecitabine (XELODA) 500 mg tablet Take 5 tablets (2,500 mg) by mouth two times a day. 14 days on 7 days off prochlorperazine (COMPAZINE) 10 mg tablet Take 1 tablet by mouth every 6 hours as needed. polyethylene glycol 3350 17 gram packet Take 17 g by mouth. semaglutide (OZEMPIC) 1 mg/dose (2 mg/1.5 mL) pen Inject 1 mg subcutaneously one time a week. atorvastatin (LIPITOR) 40 mg tablet Take 40 mg by mouth daily at bedtime. clobetasol (TEMOVATE) 0.05 % cream Apply 1 Application to affected area two times a day. metoprolol tartrate, short acting, (LOPRESSOR) 50 mg tablet Take 50 mg by mouth two times a day. Mirtazapine (REMERON) 7.5 mg tablet Take 7.5 mg by mouth once daily. JANUMET XR 50-1,000 mg TM24 Take 1 tablet by mouth every afternoon. spironolactone (ALDACTONE) 25 mg tablet Take 50 mg by mouth every morning. cannabidiol, CBD, (CANNABIDIOL ORAL) Take 10 mg by mouth daily at bedtime. ondansetron (ZOFRAN) 8 mg tablet Take 1 tablet by mouth every 8 hours as needed for nausea/vomiting. aspirin, enteric coated (ASPIRIN, ENTERIC COATED) 81 mg EC tablet Take 81 mg by mouth every other day. busPIRone (BUSPAR) 10 mg tablet Take by mouth. ferrous sulfate 325 mg (65 mg iron) tablet Take 325 mg by mouth every 48 hours. meclizine (ANTIVERT) 25 mg tab Take by mouth at bedtime as needed. nystatin (MYCOSTATIN) ointment Apply 1 Application to affected area. insulin glargine (LANTUS SOLOSTAR U-100 INSULIN) 100 unit/mL (3 mL) Inject 80 Units subcutaneously daily at bedtime. irbesartan (AVAPRO) 75 mg tablet Take 75 mg by mouth daily at bedtime. insulin lispro (HUMALOG KWIKPEN INSULIN) 100 unit/mL inpn Inject subcutaneously as directed. amLODIPine (NORVASC) 10 mg tablet Take 10 mg by mouth once daily. Acetaminophen 500 mg cap Take 500 mg by mouth as needed. clindamycin (CLEOCIN) 300 mg capsule Take 300 mg by mouth. LABORATORY VALUES: WBC (k/uL) Date Value 07/08/2024 5.81 RBC (m/uL) Date Value 07/08/2024 4.14 Hemoglobin (g/dL) Date Value 07/08/2024 11.8 Hematocrit (%) Date Value 07/08/2024 34.6 (L) MCV (fL) Date Value 07/08/2024 83.6 MCH (pg) Date Value 07/08/2024 28.5 MCHC (g/dL) Date Value 07/08/2024 34.1 RDW-CV (%) Date Value 07/08/2024 13.5 Platelet Count (k/uL) Date Value 07/08/2024 291 MPV (fL) Date Value 07/08/2024 8.5 (L) Glucose (mg/dL) Date Value 07/08/2024 398 (H) BUN (mg/dL) Date Value 07/08/2024 13 Creatinine (mg/dL) Date Value 07/08/2024 0.94 Sodium (mmol/L) Date Value 07/08/2024 133 (L) Potassium (mmol/L) Date Value 07/08/2024 4.5 Chloride (mmol/L) Date Value 07/08/2024 96 (L) CO2 (mmol/L) Date Value 07/08/2024 28 Protein, Total (g/dL) Date Value 07/08/2024 6.6 Albumin (g/dL) Date Value 07/08/2024 3.9 Calcium, Total (mg/dL) Date Value 07/08/2024 9.6 Alkaline Phosphatase (U/L) Date Value 07/08/2024 109 Bilirubin, Total (mg/dL) Date Value 07/08/2024 0.6 AST (U/L) Date Value 07/08/2024 8 (L) ALT (U/L) Date Value 07/08/2024 8 DIAGNOSIS: (C20) Rectal cancer (HCC) (primary encounter diagnosis) (E11.69, Z79.4) Type 2 diabetes mellitus with other specified complication, with long-term current use of insulin (HCC) (L03.90) Wound cellulitis PAST MEDICAL HISTORY Diagnosis Date Anxiety Carcinoma of vulva (HCC) Chronic back pain COVID-19 Depression Diabetes (HCC) GERD (gastroesophageal reflux disease) HPV in female Hypertension Ovarian cyst Panic disorder PONV (postoperative nausea and vomiting) Rectal bleeding Rectal cancer (HCC) Rectal mass Sleep apnea Vulval lesion PAST SURGICAL HISTORY Procedure Laterality Date ARTHROSCOPY KNEE DIAGNOSTIC W/WO SYNOVIAL BX SPX Left x2 ARTHRP KNE CONDYLE&PLATU MEDIAL&LAT COMPARTMENTS Left BACK SURGERY HX CHOLECYSTECTOMY HX COLONOSCOPY EGD W/O BRSH SPEC VARICIES INJ LIGATE FALLOPIAN TUBE NASAL ENDOS,DIAG,UNI/ BILATERAL PAST SURGICAL HISTORY OF Dissection of lymph node inguinal femoral PAST SURGICAL HISTORY OF Revision of Episiotomy PAST SURGICAL HISTORY OF 2019 Right Hemivulvectomy/Bilateral inguinal sentinal lymp node dissection TOTAL KNEE REPLACEMENT Left TUBAL LIGATION Social History Tobacco Use Smoking status: Former Types: Cigarettes Passive exposure: Past Smokeless tobacco: Never Substance Use Topics Alcohol use: Yes Comment: occasional Drug use: Never FAMILY HISTORY Problem Relation Age of Onset Diabetes Mother Stroke Mother Hypertension Father Uterine Cancer Maternal Grandmother Diabetes Maternal Grandfather Heart Attack Maternal Grandfather Dementia Paternal Grandmother Heart Attack Paternal Grandfather I spent a total of 40 minutes on the date of service which included preparing to see the patient, [id number] patient care, completing clinical documentation, obtaining and/or reviewing separately obtained history, performing a medically appropriate examination, counseling and educating the patient/family/caregiver, ordering medications, tests, or procedures, communicating with other HCPs (not separately reported), independently interpreting results (not separately reported), communicating results to the patient/family/caregiver, and care coordination (not separately reported). Blu Tellez MD, CPE Hematology and Oncology Services Provided at: [place], [place] Scribe Attestation: This note was scribed by Ivory Van on July 08, 2024 under the direction and supervision of Dr. Blu Tellez. I attest that all of the information documented is correct to the best of my knowledge. Provider Attestation: I, Blu Tellez MD, attest that all information documented by the above scribe is correct, and was supervised by me and under my direction. CC: Keaton Hu, DO [address] [facility] [id number] [place] Zurita documented in this encounter [facility] 07-08-2024 Note [facility] 07-03-2024 Telephone encounter Note Pt calls requesting MRI results. Results reviewed with Dr Talley and pt. Dr Talley would like pt to come in to discuss options and to come up with a plan. Pt's call transferred to [facility]'s to schedule. Little Bowens RN [facility] Work Phone: 07-03-2024 Miscellaneous Notes Pt calls requesting MRI results. Results reviewed with Dr Talley and pt. Dr Talley would like pt to come in to discuss options and to come up with a plan. Pt's call transferred to [facility]'s to schedule. Little Bowens RN documented in this encounter [facility] 07-01-2024 History of Presen t illness Narrative Radiology Service Progress Note DATE OF SERVICE: July 01, 2024 TIME: 2:35 PM PATIENT IDENTITY VERIFICATION COMPLETED USING TWO (2) STANDARD IDENTIFIERS: Name and Date of confirmed by patient verbally. FALL SCREENING: Has the patient had 2 falls in the last year or 1 fall with injury or currently using an Ambulatory Assistive Device (Walker, Cane, Wheelchair, Crutches, etc.)? No PATIENT GENDER DATA: Assigned female at . status: : No status: NO. PATIENT RELEVANT IMPLANT DATA REVIEWED: Yes PATIENT PRESENTS WITH AN IMPLANTABLE OR ATTACHED RESEARCH TECHNICIAN: No ALLERGIES: Reviewed and unchanged CONTRAST ALLERGY: NO. EXAM: MRI - CONTRAST TYPE: GROUP II PERIPHERAL IV DATA: Ambulatory: A peripheral IV was started in the Right antecubital site with a Butterfly: 23 gauge. RADIOLOGY DEPARTMENT: MR; Exam(s) Completed: Body: Rectal SIGNATURE: CRYSTAL Duenas PATIENT NAME: Parvez Riggins DATE: July 01, 2024 TIME: 2:35 PM documented in this encounter [facility] 07-01-2024 Note HNO ID: [id number] Author: EDMAR MALONE MRI Tech Service: Radiology Author Type: Track Repairer Helper Type: Progress Notes Filed: 07/01/2024 14:36 Note Text: Radiology Service Progress Note DATE OF SERVICE: July 01, 2024 TIME: 2:35 PM PATIENT IDENTITY VERIFICATION COMPLETED USING TWO (2) STANDARD IDENTIFIERS: Name and Date of confirmed by patient verbally. FALL SCREENING: Has the patient had 2 falls in the last year or 1 fall with injury or currently using an Ambulatory Assistive Device (Walker, Cane, Wheelchair, Crutches, etc.)? No PATIENT GENDER DATA: Assigned female at . status: : No status: NO. PATIENT RELEVANT IMPLANT DATA REVIEWED: Yes PATIENT PRESENTS WITH AN IMPLANTABLE OR ATTACHED RESEARCH TECHNICIAN: No ALLERGIES: Reviewed and unchanged CONTRAST ALLERGY: NO. EXAM: MRI - CONTRAST TYPE: GROUP II PERIPHERAL IV DATA: Ambulatory: A peripheral IV was started in the Right antecubital site with a Butterfly: 23 gauge. RADIOLOGY DEPARTMENT: MR; Exam(s) Completed: Body: Rectal SIGNATURE: Edmar Malone director telecommunications PATIENT NAME: Parvez Riggins DATE: July 01, 2024 TIME: 2:35 PM [facility] 06-27-2024 Telephone encounter Note Pt calls back stating she's doing better since going to the ER. Pt states she sat in her car and prayed before she went into the ER, and she already felt better when she went in. She states they weren't able to find anything wrong with her, put her on an antibiotic, and is feeling much better. Little Bowens RN [facility] Work Phone: 06-27-2024 Miscellaneous Notes Pt calls back stating she's doing better since going to the ER. Pt states she sat in her car and prayed before she went into the ER, and she already felt better when she went in. She states they weren't able to find anything wrong with her, put her on an antibiotic, and is feeling much better. Little Bowens RN Message left for pt to call our office back to follow up on ER visit. Little Bowens RN Pt did go to the ER and was sent home on oral antibiotics. Pt refused IV antibiotics while there. Call placed to pt to follow up. Message left requesting pt to call our office back. Little Bowens RN Spoke with patient who states she's been having a lot of pain in her abdominal/groin area. Describes this as if she were having period cramping. Pt states she's having mild constipation off and on. She is currently headed to the wound clinic at [facility] for a cut on her leg that isn't healing. Pt states she will go to [facility] ER after that appointment. Report called to Alla at [facility] ER. Little Bowens RN Call placed to pt and message left requesting her to call our office back. Little Bowens RN ----- Message from Ashwini Peck RN sent at 06/23/2024 3:23 PM EST ----- ----- Message ----- From: Jessica Eubanks PA-C Sent: 06/23/2024 3:19 PM EST To: [facility] Triage Pool Her CT scan shows acute diverticulitis. Is she symptomatic? She should go to ER if she is. documented in this encounter [facility] 06-26-2024 Telephone encounter Note Message left for pt to call our office back to follow up on ER visit. Little Bowens RN [facility] 06-25-2024 Telephone encounter Note Pt did go to the ER and was sent home on oral antibiotics. Pt refused IV antibiotics while there. Call placed to pt to follow up. Message left requesting pt to call our office back. Littel Bowens RN [facility] 06-25-2024 Telephone encounter Note Pt was in the ER yesterday and sent home. Tried calling pt today and left her a message to call our office back. Little Bowens RN [facility] Work Phone: 06-25-2024 Miscellaneous Notes Pt was in the ER yesterday and sent home. Tried calling pt today and left her a message to call our office back. Little Bowens RN Patient did not show for RV and treatment today. Possible ED admission per chart from yesterday? Anna Clay documented in this encounter [facility] 06-25-2024 Telephone encounter Note Patient did not show for RV and treatment today. Possible ED admission per chart from yesterday? Anna Clay [facility] 06-24-2024 Telephone encounter Note Spoke with patient who states she's been having a lot of pain in her abdominal/groin area. Describes this as if she were having period cramping. Pt states she's having mild constipation off and on. She is currently headed to the wound clinic at [facility] for a cut on her leg that isn't healing. Pt states she will go to [facility] ER after that appointment. Report called to Alla at [facility] ER. Little Bowens RN [facility] 06-23-2024 Telephone encounter Note Call placed to pt and message left requesting her to call our office back. Little Bownes RN [facility] 06-23-2024 Telephone encounter Note ----- Message from Ashwini Peck RN sent at 06/23/2024 3:23 PM EST ----- ----- Message ----- From: Jessica Eubanks PA-C Sent: 06/23/2024 3:19 PM EST To: [facility] Triage Pool Her CT scan shows acute diverticulitis. Is she symptomatic? She should go to ER if she is. [facility] 06-23-2024 History of Presen t illness Narrative Radiology Service Progress Note PATIENT NAME: Parvez Riggins DATE OF SERVICE: June 23, 2024 TIME: 10:26 AM PATIENT IDENTITY VERIFICATION COMPLETED USING TWO (2) IDENTIFIERS: Name and Date of confirmed by patient verbally. FALL SCREENING: Has the patient had 2 falls in the last year or 1 fall with injury or currently using an Ambulatory Assistive Device (Walker, Cane, Wheelchair, Crutches, etc.)? No PATIENT GENDER DATA: Assigned female at . status: : No status: NO. PATIENT RELEVANT IMPLANT DATA REVIEWED: Not Applicable PATIENT PRESENTS WITH AN IMPLANTABLE OR ATTACHED RESEARCH TECHNICIAN: No RADIOLOGY DEPARTMENT: CT; Exam(s) Completed: Chest Abdomen Pelvis PERIPHERAL IV DATA: Site assessment: Clean,Dry and Intact, Site disposition Discontinued SIGNED BY: RT Cassy(R) June 23, 2024 10:26 AM Radiology Service Progress Note DATE OF SERVICE: June 23, 2024 TIME: 12:30 PM PATIENT WEIGHT: 209LBS PATIENT IDENTITY VERIFICATION COMPLETED USING TWO (2) STANDARD IDENTIFIERS: Name and Date of confirmed by patient verbally. FALL SCREENING: Has the patient had 2 falls in the last year or 1 fall with injury or currently using an Ambulatory Assistive Device (Walker, Cane, Wheelchair, Crutches, etc.)? No PATIENT GENDER DATA: Assigned female at . status: : No status: NO. ALLERGIES: Reviewed and unchanged CONTRAST ALLERGY: No EXAM: CT -CONTRAST INDUCED NEPHROPATHY RISK FACTORS: Patient age > 60 years and Diabetic: Yes. Current medication(s): Insulin Insulin Pump: NO Insulin Pump Removed: N/A. Patient currently has insulin pump?: No. CREATININE: Creatinine Date Value Ref Range Status 06/23/2024 0.86 0.58 - 0.96 mg/dL Final 06/04/2024 0.94 0.58 - 0.96 mg/dL Final 05/16/2024 0.83 0.58 - 0.96 mg/dL Final Estimated Glomerular Filtration Rate Date Value Ref Range Status 06/23/2024 75 >=60 mL/min/1.73m Final Comment: Estimated Glomerular Filtration Rate (eGFR) is calculated using the 2020 CKD-EPI creatinine equation. This equation utilizes serum creatinine, sex, and age as parameters. The creatinine assay has traceable calibration to isotope dilution-mass spectrometry. Refer to KDIGO guidelines for clinical interpretation. In patients with unstable renal function, e.g. those with acute kidney injury, the eGFR may not accurately reflect actual GFR. P.O.C.T. RESULTS: POC done: Yes, See Lab Tab June 23, 2024 TREATMENT: No Hydration needed. IV SITE: Ambulatory: A peripheral IV was started in the Right antecubital site with a Angio cath: 22 gauge. IV SITE APPEARANCE: Clean,Dry and Intact SIGNATURE: Yadira Hirsch RN PATIENT NAME: Parvez Riggins DATE: June 23, 2024 TIME: 12:30 PM documented in this encounter [facility] 06-23-2024 Miscellaneous Notes Encounter addended by: Yadira Hirsch RN on: 06/23/2024 12:32 PM Actions taken: Clinical Note Signed documented in this encounter [facility] 06-23-2024 Note Encounter addended b y: Yadira Hirsch RN on: 06/23/2024 12:32 PM Actions taken: Clinical Note Signed [facility] 06-23-2024 Note [facility] 06-23-2024 Note [facility] 06-17-2024 Telephone encounter Note SOCIAL WORK FOLLOW UP NOTE: [facility] Date of service:06/17/24 TOPICS ADDRESSED: mental health needs and community resources PLAN: Continue follow up as needed Assigned SW listed in Care Team tab: Yes Patient called and left a VM stating that she is getting the run around from [facility] . SW called Patient back, left a VM. SW offered to send a referral to [facility] in [place], if she is agreeable. Awaiting a call back. VICENTE Nash [facility] 06-17-2024 Miscellaneous Notes SOCIAL WORK FOLLOW UP NOTE: [facility] Date of service:06/17/24 TOPICS ADDRESSED: mental health needs and community resources PLAN: Continue follow up as needed Assigned SW listed in Care Team tab: Yes Patient called and left a VM stating that she is getting the run around from [facility] . SW called Patient back, left a VM. SW offered to send a referral to [facility] in [place], if she is agreeable. Awaiting a call back. VICENTE Nash documented in this encounter [facility] 06-16-2024 Telephone encounter Note Call to [facility]. Patient has an appointment scheduled for . [facility] 06-16-2024 Miscellaneous Notes Call to [facility]. Patient has an appointment scheduled for . Message left for the patient to call and update us on the status of her appointment with the Wound Care Clinic. Lisa CASAS [facility] called back. They did receive the referral and attempted to call the patient on 06/05/24. A message was left and patient has not returned the call. I attempted to call the patient. Left a message for the patient to call [phone] and schedule with [facility]. I will continue to call the patient to follow up on the appointment. Lisa CASAS Majo, they didn't receive the fax. Can you refax to [phone]. Thanks! Records faxed to [facility]. Majo: Information ready for you. Lory Casas Parvez needs to see Wound care and would like to go close to her [place] home. Being referred to [facility] wound center. Majo, Please fax order and supporting records regarding wound cellulitis . Oswaldo, Please follow up on this appt. Thank you. documented in this encounter [facility] 06-12-2024 Telephone encounter Note Message left for the patient to call and update us on the status of her appointment with the Wound Care Clinic. Lisa CASAS [facility] 06-11-2024 Telephone encounter Note [facility] called back. They did receive the referral and attempted to call the patient on 06/05/24. A message was left and patient has not returned the call. I attempted to call the patient. Left a message for the patient to call [phone] and schedule with [facility] Wound [facility]. I will continue to call the patient to follow up on the appointment. Lisa Foster PSS [facility] 06-11-2024 Telephone encounter Note Majo, they didn't receive the fax. Can you refax to [phone]. Thanks! [facility] 06-10-2024 Telephone encounter Note An updated cre is needed prior to scan. Please sign pending order thanks!! Yadira Hirsch RN [facility] 06-10-2024 Miscellaneous Notes An updated cre is needed prior to scan. Please sign pending order thanks!! Yadira Hirsch RN documented in this encounter [facility] 06-10-2024 Telephone encounter Note [facility]IAL WORK FOLLOW UP [facility] Date of service:06/10/24 TOPICS ADDRESSED: mental health needs PLAN: Continue follow up as needed and Referral to community resource Assigned SW listed in Care Team tab: Yes SW was made aware that [facility] will not accept a referral for this Patient because the Patient does not receive care at [facility]. SW called Patient and left a VM asking if this SW has permission to send a referral to [facility] in [place], [place]. Awaiting a call back. VICENTE Nash [facility] 06-10-2024 Miscellaneous Notes SOCIAL WORK FOLLOW UP NOTE: [facility] Date of service:06/10/24 TOPICS ADDRESSED: mental health needs PLAN: Continue follow up as needed and Referral to community resource Assigned SW listed in Care Team tab: Yes SW was made aware that [facility] will not accept a referral for this Patient because the Patient does not receive care at [facility]. SW called Patient and left a VM asking if this SW has permission to send a referral to [facility] in [place], [place]. Awaiting a call back. VICENTE Nash documented in this encounter [facility] 06-05-2024 Telephone encounter Note Pt calls stating she's had a lot more cold sensitivity with this treatment. States she didn't have anything to use yesterday when she left our office to wrap around her face so she breathed in the cold air which wasn't good. Pt states even still today she feels cold in her throat and on her tongue. Pt denies any swelling or pain, states it just feels cold. Re-educated pt on drinking room temperature fluids and making sure that her home is warm inside. Pt verbalized understanding and states she's staying with a friend and its warm there. States she's been sticking with bottled water from the counter so it's room temp. Pt needs to change her appointment for her upcoming CT scans. Call transferred to PSS's to change. Little Bowens, CIPRIANO [facility] Work Phone: 06-05-2024 Miscellaneous Notes Pt calls stating she's had a lot more cold sensitivity with this treatment. States she didn't have anything to use yesterday when she left our office to wrap around her face so she breathed in the cold air which wasn't good. Pt states even still today she feels cold in her throat and on her tongue. Pt denies any swelling or pain, states it just feels cold. Re-educated pt on drinking room temperature fluids and making sure that her home is warm inside. Pt verbalized understanding and states she's staying with a friend and its warm there. States she's been sticking with bottled water from the counter so it's room temp. Pt needs to change her appointment for her upcoming CT scans. Call transferred to PSS's to change. Little Bowens, RN documented in this encounter [facility] 06-05-2024 Telephone encounter Note Records faxed to [facility]. [facility] 06-04-2024 Telephone encounter Note Majo: Information ready for you. Lory Elder Pss [facility] 06-04-2024 Telephone encounter Note Parvez needs to see Wound care and would like to go close to her [place] home. Being referred to [facility] wound center. Majo, Please fax order and supporting records regarding wound cellulitis . Oswaldo, Please follow up on this appt. Thank you. [facility] 06-04-2024 History of Presen t illness Narrative Images from the original note were not included. NAME: Parvez Riggins CLINIC NO.: [id number] DATE OF SERVICE: June 04, 2024 ([place]) Some elements in this clinic note that are critical to medical decision making have been carefully reviewed and included from a prior clinic note dated: May 16, 2024 ([place]) Referring Provider: Arturo Mcdonald MD Additional Clinicians involved in Parvez Riggins's care: DIAGNOSIS: Rectal Cancer- MRI Staged T3a,N+,M0- RHYS ASSESSMENT: 68 year old female here for follow up. Rectal cancer-started planned YANIV. Started radiation and xeloda on October 16, 2023. She is doing well. She does have fatigue but otherwise no major side effects. She will complete xeloda and xrt on 11/23/2023. I have arranged for a repeat MRI rectum and a follow up with [facility]. She has decided she would like to maintain her care in [place] and I will offer her a follow up with a new oncologist in 2-3 weeks to plan her YANIV therapy. She does not have a port and wishes to proceed without one. Proceed with CAPOX. 5 mm left-sided nodular opacity on initial staging CT- repeat CT chest November 2023 negative . Post dental extraction. DM2--not well controlled. She will follow up with her PCP for this - blood sugar is high today but will need to resume ozempic and see her PCP. Depression-referral to behavioral health Leg wound-referral placed to wound care PLAN: Resume cycle 3 today MRI rectum and CT cap before RV Consult behavioral health for depression Consult wound care for right leg wound RV in 3 weeks for labs, review of imaging, and additional chemo With Dr. Tellez HPI: CASE HISTORY: Reverse Chronological Order 01/31/2024 - Start CAPOX C1 D1 01/10/2024 - MRI Rectum: Since 09/04/23, post treatment primary tumor assessment: Incomplete response (likely residual tumor). Previously noted polypoid masslike rectal neoplasm has decreased with residual wall thickening. Interval resolution of previously noted mesorectal lymph nodes. mrTRG: Grade 3 - Moderate response Suspicious Mesorectal lymph nodes: No. Suspicious Extramesorectal lymph nodes: No. 11/23/2023 - CT Chest: No metastatic disease in the chest. 10/28/2023 - CT A/P: Moderate amount of stool in the colon with a large amount of stool in the colorectal junction. There is been interval decreased size of the distal rectal mass however there is luminal narrowing which could represent a component of stricture formation however there is no significant proximal colonic dilatation. Consider nonemergent fluoroscopic barium enema for further assessment. 10/16/2023-11/23/2023 - Xeloda and XRT, planned YANIV 08/2023 - MRI Rectum: MID RECTAL SEMIANNULAR MASS. Stage: T3a N+ MRF: Clear (tumor margin >2 mm from MRF), however a metastatic mesorectal lymph node abuts the MRF Sphincter involvement: No. Suspicious extra mesorectal lymph nodes: No. EMVI: No. 07/16/2023 - CT CAP: Chest: Left-sided nodular opacities measuring up to 5 mm. Metastatic disease is not excluded. Recommend continued attention to these areas on follow-up exams. No evidence of intrathoracic lymphadenopathy. A/P: Large rectal mass with numerous enlarged perirectal nodes, suspicious for ami metastatic disease. No additional findings to suggest distant abdominal or pelvic metastatic disease. Linear bandlike hypodensity within the spleen, suggestive of a splenic infarct. 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 06/2023 - Colonoscopy: Rectal mass, procedure not specified: - 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 Anal verge, procedure not specified: - Inflammatory cloacogenic polyp, ulcerated, negative for dysplasia or carcinoma. Updated Visit, June 04, 2024: It has been 11 weeks since her cycle 2 of Capox. She reports that it was due to illness, personal issues and weather-related. She understands that her cancer may grow without treatment and she would like to resume. She is inquiring about a referral to behavioral health at [facility] in [place] for counseling. She has many past issues to deal with she reports. Her bowels are moving fine. She denies any pain. She is eating and drinking well. She reports that she took 3 days of Bactrim for her leg wound and it made her sick, so she stopped it. She would like to see wound care Updated Visit, May 16, 2024: Parvez returns today for consideration of C3D1 of CAPOX. She skipped her treatment last month and wanted to take a break. She reports today she is very tired and fatigue. At the beginning of the month she was caring a mattress and she fell on a quoc spring- see image below.Up to date on tetanus. Will prescribe Bactrim. Followed up with her PCP. hose tender and slightly reddened. Patient has been down due to the holidays. She feels excluded from her family Having a hard time with her daughter. Explained to patient how to correctly take Xeloda. Continues to have neuropathy in bilateral feet- Not getting worse. CBC appropriate for treatment today. She will see our social insurance analyst today. No diarrhea or constipation. No bleeding or bruising. No fever, chills, night sweats. Patient wishes not to proceed with treatment today. We will hold Xeloda and oxaliplatin today. She wishes to RTC in one week. Updated Visit, April 10, 2024: Parvez Riggins returns for scheduled follow-up and treatment. Today she states that she is not doing well and does not want treatment today. She has a lot of personal issues going on. She has been having family issues. Her daughter was recently diagnosed with bipolar. The patient states that her daughter told her I am the way I and because of you . She complains of being fatigued she is not sleeping well. She states that her brain will not shut off . She has some nausea with treatment. No vomiting. She denies fevers, chills, night sweats and signs/symptoms of infection. No bleeding or abnormal bruising. Updated Visit, March 20, 2024: Had an accident last time and was severely hypokalemic - went home before we saw her. Her last infusion site on her left hand still bothering her from oxaliplatin. On a positive note - her daughter is trying to improve their relationship again. Labs are safe to proceed. Updated Visit, January 31, 2024: Parvez returns today to start CAPOX. She admits she is nervous to start treatment and that she would not like surgery in the future. We discussed her mental health and her familial relationships. I recommended she follow up with our social insurance analyst as she can also assist with transportation needs. She is very involved with her anabaptist and may reach out to them for emotional support. I also advised her to reconsider surgical intervention as this disease is curable. Initial Visit, January 15, 2024: Transition of Care Parvez Riggins presents today to transition her care as her previous provider left the practice. MRI of the rectum shows incomplete response - she is in agreement to continue treatment with CAPOX. We discussed potential AEs, including cold-induced neuropathy. 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 Her therapy dog is known as Enrique and is 10 years old. November 21, 2023: Parvez returns for follow up. Overall she is doing well with her treatments. She denies diarrhea, however she does sometimes lose bowels when she doesn't expect it. Denies any mucositis or HFS. She is scheduled to finish radiation on 11/23/2023. REVIEW OF SYSTEMS Per HPI and otherwise negative by full review of organ systems. ECOG PERFORMANCE STATUS: PHYSICAL EXAMINATION: Vitals: BP 141/78 Pulse 91 Temp (Src) 97.3 (Temporal) Resp 16 Ht 5' 7.717 (1.72m) Wt 210 lb 1.6 oz (95.3kg) SpO2 96% BMI 32.21 kg/(m^2). Body surface area is 2.13 meters squared. PHYSICAL EXAMINATION General: Alert and oriented, no distress, pleasant and cooperative. Heart: Regular, normal S1 and S2, no murmurs, rubs, or gallops Lungs: Clear to auscultation bilaterally Abdomen: Benign Extremities: Feet/ankles without edema, posterior tibial pulses full and symmetrical. Excoriated wound with bruising to right calf ALLERGIES: ALLERGIES Allergen Reactions Codeine Other: See Comments Nausea Tramadol Vomiting MEDICATIONS: ondansetron (ZOFRAN) 8 mg tablet Take 1 tablet by mouth every 8 hours as needed for nausea/vomiting. prochlorperazine (COMPAZINE) 10 mg tablet Take 1 tablet by mouth every 6 hours as needed. capecitabine (XELODA) 500 mg tablet Take 5 tablets (2,500 mg) by mouth two times a day. 14 days on 7 days off prochlorperazine (COMPAZINE) 10 mg tablet Take 1 tablet by mouth every 6 hours as needed. polyethylene glycol 3350 17 gram packet Take 17 g by mouth. semaglutide (OZEMPIC) 1 mg/dose (2 mg/1.5 mL) pen Inject 1 mg subcutaneously one time a week. atorvastatin (LIPITOR) 40 mg tablet Take 40 mg by mouth daily at bedtime. clobetasol (TEMOVATE) 0.05 % cream Apply 1 Application to affected area two times a day. metoprolol tartrate, short acting, (LOPRESSOR) 50 mg tablet Take 50 mg by mouth two times a day. Mirtazapine (REMERON) 7.5 mg tablet Take 7.5 mg by mouth once daily. JANUMET XR 50-1,000 mg TM24 Take 1 tablet by mouth every afternoon. spironolactone (ALDACTONE) 25 mg tablet Take 50 mg by mouth every morning. cannabidiol, CBD, (CANNABIDIOL ORAL) Take 10 mg by mouth daily at bedtime. ondansetron (ZOFRAN) 8 mg tablet Take 1 tablet by mouth every 8 hours as needed for nausea/vomiting. aspirin, enteric coated (ASPIRIN, ENTERIC COATED) 81 mg EC tablet Take 81 mg by mouth every other day. busPIRone (BUSPAR) 10 mg tablet Take by mouth. ferrous sulfate 325 mg (65 mg iron) tablet Take 325 mg by mouth every 48 hours. meclizine (ANTIVERT) 25 mg tab Take by mouth at bedtime as needed. nystatin (MYCOSTATIN) ointment Apply 1 Application to affected area. insulin glargine (LANTUS SOLOSTAR U-100 INSULIN) 100 unit/mL (3 mL) Inject 80 Units subcutaneously daily at bedtime. irbesartan (AVAPRO) 75 mg tablet Take 75 mg by mouth daily at bedtime. insulin lispro (HUMALOG KWIKPEN INSULIN) 100 unit/mL inpn Inject subcutaneously as directed. amLODIPine (NORVASC) 10 mg tablet Take 10 mg by mouth once daily. Acetaminophen 500 mg cap Take 500 mg by mouth as needed. LABORATORY VALUES: WBC (k/uL) Date Value 06/04/2024 4.08 RBC (m/uL) Date Value 06/04/2024 4.19 Hemoglobin (g/dL) Date Value 06/04/2024 12.0 Hematocrit (%) Date Value 06/04/2024 34.7 (L) MCV (fL) Date Value 06/04/2024 82.8 MCH (pg) Date Value 06/04/2024 28.6 MCHC (g/dL) Date Value 06/04/2024 34.6 RDW-CV (%) Date Value 06/04/2024 12.7 Platelet Count (k/uL) Date Value 06/04/2024 261 MPV (fL) Date Value 06/04/2024 8.8 (L) Glucose (mg/dL) Date Value 06/04/2024 439 (H) BUN (mg/dL) Date Value 06/04/2024 16 Creatinine (mg/dL) Date Value 06/04/2024 0.94 Sodium (mmol/L) Date Value 06/04/2024 133 (L) Potassium (mmol/L) Date Value 06/04/2024 3.6 (L) Chloride (mmol/L) Date Value 06/04/2024 96 (L) CO2 (mmol/L) Date Value 06/04/2024 27 Protein, Total (g/dL) Date Value 06/04/2024 7.0 Albumin (g/dL) Date Value 06/04/2024 4.0 Calcium, Total (mg/dL) Date Value 06/04/2024 10.1 Alkaline Phosphatase (U/L) Date Value 06/04/2024 118 Bilirubin, Total (mg/dL) Date Value 06/04/2024 1.2 AST (U/L) Date Value 06/04/2024 13 ALT (U/L) Date Value 06/04/2024 13 DIAGNOSIS: (C20) Rectal cancer (HCC) (primary encounter diagnosis) Plan: MRI RECTUM WO/W IVCON, CT ABD/PEL W IVCON, CT CHEST W IVCON, COMPREHENSIVE METABOLIC PANEL, COMPLETE BLOOD COUNT AND DIFFERENTIAL, CARCINOEMBRYONIC ANTIGEN (L03.90) Wound cellulitis Plan: MRI RECTUM WO/W IVCON, CT ABD/PEL W IVCON, CT CHEST W IVCON, COMPREHENSIVE METABOLIC PANEL, COMPLETE BLOOD COUNT AND DIFFERENTIAL, CARCINOEMBRYONIC ANTIGEN, CONSULT TO WOUND CARE [facility] USE ONLY (E11.69, Z79.4) Type 2 diabetes mellitus with other specified complication, with long-term current use of insulin (HCC) Plan: MRI RECTUM WO/W IVCON, CT ABD/PEL W IVCON, CT CHEST W IVCON, COMPREHENSIVE METABOLIC PANEL, COMPLETE BLOOD COUNT AND DIFFERENTIAL, CARCINOEMBRYONIC ANTIGEN (F32.89) Other depression Plan: CONSULT TO ONCOLOGY BEHAVIORAL HEALTH PAST MEDICAL HISTORY Diagnosis Date Anxiety Carcinoma of vulva (HCC) Chronic back pain COVID-19 Depression Diabetes (HCC) GERD (gastroesophageal reflux disease) HPV in female Hypertension Ovarian cyst Panic disorder PONV (postoperative nausea and vomiting) Rectal bleeding Rectal cancer (HCC) Rectal mass Sleep apnea Vulval lesion PAST SURGICAL HISTORY Procedure Laterality Date ARTHROSCOPY KNEE DIAGNOSTIC W/WO SYNOVIAL BX SPX Left x2 ARTHRP KNE CONDYLE&PLATU MEDIAL&LAT COMPARTMENTS Left BACK SURGERY HX CHOLECYSTECTOMY HX COLONOSCOPY EGD W/O BRSH SPEC VARICIES INJ LIGATE FALLOPIAN TUBE NASAL ENDOS,DIAG,UNI/ BILATERAL PAST SURGICAL HISTORY OF Dissection of lymph node inguinal femoral PAST SURGICAL HISTORY OF Revision of Episiotomy PAST SURGICAL HISTORY OF 2020 Right Hemivulvectomy/Bilateral inguinal sentinal lymp node dissection TOTAL KNEE REPLACEMENT Left TUBAL LIGATION Social History Tobacco Use Smoking status: Former Types: Cigarettes Passive exposure: Past Smokeless tobacco: Never Substance Use Topics Alcohol use: Yes Comment: occasional Drug use: Never FAMILY HISTORY Problem Relation Age of Onset Diabetes Mother Stroke Mother Hypertension Father Uterine Cancer Maternal Grandmother Diabetes Maternal Grandfather Heart Attack Maternal Grandfather Dementia Paternal Grandmother Heart Attack Paternal Grandfather I spent a total of 30 minutes on the date of the service which included preparing to see the patient, [id number] patient care, completing clinical documentation, performing a medically appropriate examination, counseling and educating the patient/family/caregiver, ordering medications, tests, or procedures, independently interpreting results (not separately reported), communicating results to the patient/family/caregiver, and care coordination (not separately reported). Jessica Eubanks PA-C Hematology and Oncology Services Provided at: [place], [place] CC: Keaton Hu DO [address] [facility] [id number] documented in this encounter [facility] 06-04-2024 Note [facility] 05-23-2024 Telephone encounter Note SOCIAL WORK FOLLOW UP NOTE: [facility] Date of service:05/23/24 Parvez Riggins is being seen for a follow up social work visit. Today's visit includes: patient TOPICS ADDRESSED: mental health needs PLAN: Continue follow up as needed and Referral to community resource Assigned SW listed in Care Team tab: Yes [facility] returned this SW's call and they do have a counselor (Jarad Spicer) in the [place] office that is accepting new clients. SW called Patient and updated her. Patient will call to schedule an appointment. No other needs or concerns were identified. Pauline Kushal, DOG BEHAVIORIST-S [facility] 05-23-2024 Miscellaneous Notes SOCIAL WORK FOLLOW UP NOTE: [facility] Date of service:05/23/24 Parvez Riggins is being seen for a follow up social work visit. Today's visit includes: patient TOPICS ADDRESSED: mental health needs PLAN: Continue follow up as needed and Referral to community resource Assigned SW listed in Care Team tab: Yes [facility] returned this SW's call and they do have a counselor (Jarad Spicer) in the [place] office that is accepting new clients. SW called Patient and updated her. Patient will call to schedule an appointment. No other needs or concerns were identified. VICENTE Nash documented in this encounter [facility] 05-16-2024 Note [facility] 05-16-2024 History of Presen t illness Narrative SOCIAL WORK FOLLOW UP NOTE: [facility] Date of service:05/16/24 Parvez Riggins is being seen for a follow up social work visit. Today's visit includes: patient TOPICS ADDRESSED: coping/support and mental health needs PLAN: Continue follow up as needed , Provide emotional support to patient/family, and Referral to community resource Assigned SW listed in Care Team tab: Yes Referral received to talk with Patient today and provide additional support. SW met with Patient in exam room 6. Patient was tearful. Patient is experiencing ongoing family disaccord. Patient has a history of multiple traumas and limited social support. SW provided active listening and validation to the feelings expressed. Discussed resuming counseling services. Patient is open to this and requested that this SW help her connect with a counselor. Patient would prefer to go back to [facility] in [place] if possible. Patient is also willing to see a counselor in surrounding cities like [place] or [place]. SW will make some calls and see what options are available. VICENTE Nash documented in this encounter [facility] 05-16-2024 History of Presen t illness Narrative Images from the original note were not included. NAME: Parvez Riggins CLINIC NO.: [id number] DATE OF SERVICE: May 16, 2024 ([place]) Some elements in this clinic note that are critical to medical decision making have been carefully reviewed and included from a prior clinic note dated: April 10, 2024 ([place]) Referring Provider: Arturo Mcdonald MD Additional Clinicians involved in Parvez Riggins's care: DIAGNOSIS: Rectal Cancer- MRI Staged T3a,N+,M0- RHYS ASSESSMENT: 68 year old female here for follow up. Rectal cancer-started planned YANIV. Started radiation and xeloda on October 16, 2023. She is doing well. She does have fatigue but otherwise no major side effects. She will complete xeloda and xrt on 11/23/2023. I have arranged for a repeat MRI rectum and a follow up with [facility]. She has decided she would like to maintain her care in [place] and I will offer her a follow up with a new oncologist in 2-3 weeks to plan her YANIV therapy. She does not have a port and wishes to proceed without one. Proceed with CAPOX. 5 mm left-sided nodular opacity on initial staging CT--will repeat CT chest before her return Post dental extraction DM2--not well controlled. She will follow up with her PCP for this - blood sugar is high today but will need to resume ozempic and see her PCP. PLAN: She has requested to delay treatment until next week RTC in 1 weeks for C3 D1 CAPOX Labs Clinician and treat same day 3. Prescribed Bactrim for leg wound. HPI: CASE HISTORY: Reverse Chronological Order 01/31/2024 - Start CAPOX C1 D1 01/10/2024 - MRI Rectum: Since 09/04/23, post treatment primary tumor assessment: Incomplete response (likely residual tumor). Previously noted polypoid masslike rectal neoplasm has decreased with residual wall thickening. Interval resolution of previously noted mesorectal lymph nodes. mrTRG: Grade 3 - Moderate response Suspicious Mesorectal lymph nodes: No. Suspicious Extramesorectal lymph nodes: No. 11/23/2023 - CT Chest: No metastatic disease in the chest. 10/28/2023 - CT A/P: Moderate amount of stool in the colon with a large amount of stool in the colorectal junction. There is been interval decreased size of the distal rectal mass however there is luminal narrowing which could represent a component of stricture formation however there is no significant proximal colonic dilatation. Consider nonemergent fluoroscopic barium enema for further assessment. 10/16/2023-11/23/2023 - Xeloda and XRT, planned YANIV 08/2023 - MRI Rectum: MID RECTAL SEMIANNULAR MASS. Stage: T3a N+ MRF: Clear (tumor margin >2 mm from MRF), however a metastatic mesorectal lymph node abuts the MRF Sphincter involvement: No. Suspicious extra mesorectal lymph nodes: No. EMVI: No. 07/16/2023 - CT CAP: Chest: Left-sided nodular opacities measuring up to 5 mm. Metastatic disease is not excluded. Recommend continued attention to these areas on follow-up exams. No evidence of intrathoracic lymphadenopathy. A/P: Large rectal mass with numerous enlarged perirectal nodes, suspicious for ami metastatic disease. No additional findings to suggest distant abdominal or pelvic metastatic disease. Linear bandlike hypodensity within the spleen, suggestive of a splenic infarct. 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 06/2023 - Colonoscopy: Rectal mass, procedure not specified: - 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 Anal verge, procedure not specified: - Inflammatory cloacogenic polyp, ulcerated, negative for dysplasia or carcinoma. Updated Visit, May 16, 2024: Parvez returns today for consideration of C3D1 of CAPOX. She skipped her treatment last month and wanted to take a break. She reports today she is very tired and fatigue. At the beginning of the month she was caring a mattress and she fell on a quoc spring- see image below.Up to date on tetanus. Will prescribe Bactrim. Followed up with her PCP. hose tender and slightly reddened. Patient has been down due to the holidays. She feels excluded from her family Having a hard time with her daughter. Explained to patient how to correctly take Xeloda. Continues to have neuropathy in bilateral feet- Not getting worse. CBC appropriate for treatment today. She will see our social insurance analyst today. No diarrhea or constipation. No bleeding or bruising. No fever, chills, night sweats. Patient wishes not to proceed with treatment today. We will hold Xeloda and oxaliplatin today. She wishes to RTC in one week. Updated Visit, April 10, 2024: Parvez Riggins returns for scheduled follow-up and treatment. Today she states that she is not doing well and does not want treatment today. She has a lot of personal issues going on. She has been having family issues. Her daughter was recently diagnosed with bipolar. The patient states that her daughter told her I am the way I and because of you . She complains of being fatigued she is not sleeping well. She states that her brain will not shut off . She has some nausea with treatment. No vomiting. She denies fevers, chills, night sweats and signs/symptoms of infection. No bleeding or abnormal bruising. Updated Visit, March 20, 2024: Had an accident last time and was severely hypokalemic - went home before we saw her. Her last infusion site on her left hand still bothering her from oxaliplatin. On a positive note - her daughter is trying to improve their relationship again. Labs are safe to proceed. Updated Visit, January 31, 2024: Parvez returns today to start CAPOX. She admits she is nervous to start treatment and that she would not like surgery in the future. We discussed her mental health and her familial relationships. I recommended she follow up with our social insurance analyst as she can also assist with transportation needs. She is very involved with her anabaptist and may reach out to them for emotional support. I also advised her to reconsider surgical intervention as this disease is curable. Initial Visit, January 15, 2024: Transition of Care Parvez Riggins presents today to transition her care as her previous provider left the practice. MRI of the rectum shows incomplete response - she is in agreement to continue treatment with CAPOX. We discussed potential AEs, including cold-induced neuropathy. 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 Her therapy dog is known as Enrique and is 10 years old. November 21, 2023: Parvez returns for follow up. Overall she is doing well with her treatments. She denies diarrhea, however she does sometimes lose bowels when she doesn't expect it. Denies any mucositis or HFS. She is scheduled to finish radiation on 11/23/2023. REVIEW OF SYSTEMS Per HPI and otherwise negative by full review of organ systems. ECOG PERFORMANCE STATUS: PHYSICAL EXAMINATION: Vitals: BP 164/84 Pulse 93 Temp (Src) 97.1 (Temporal) Resp 18 Wt 217 lb 9.5 oz (98.7kg) SpO2 97% Body surface area is 2.17 meters squared. Exam limited to gross visualization where appropriate. Gen.: This is an age-appropriate patient in no acute distress. Head: Appears atraumatic with no visible lesions. Eyes: Pupils equally round and reactive to light, extraocular muscles are intact. Neck: Supple. Respiratory: Appears to be respiring comfortably. Neurologic: Nonfocal to gross visualization. Alert and oriented 3. Psychiatric: No evidence of inappropriate anxiety or depression. Skin: Visible areas of skin without rash, lesions, wounds or petechiae. Wound to right outer calf. See image ALLERGIES: ALLERGIES Allergen Reactions Codeine Other: See Comments Nausea Tramadol Vomiting MEDICATIONS: capecitabine (XELODA) 500 mg tablet Take 5 tablets (2,500 mg) by mouth two times a day. 14 days on 7 days off prochlorperazine (COMPAZINE) 10 mg tablet Take 1 tablet by mouth every 6 hours as needed. polyethylene glycol 3350 17 gram packet Take 17 g by mouth. semaglutide (OZEMPIC) 1 mg/dose (2 mg/1.5 mL) pen Inject 1 mg subcutaneously one time a week. atorvastatin (LIPITOR) 40 mg tablet Take 40 mg by mouth daily at bedtime. clobetasol (TEMOVATE) 0.05 % cream Apply 1 Application to affected area two times a day. metoprolol tartrate, short acting, (LOPRESSOR) 50 mg tablet Take 50 mg by mouth two times a day. Mirtazapine (REMERON) 7.5 mg tablet Take 7.5 mg by mouth once daily. JANUMET XR 50-1,000 mg TM24 Take 1 tablet by mouth every afternoon. spironolactone (ALDACTONE) 25 mg tablet Take 50 mg by mouth every morning. cannabidiol, CBD, (CANNABIDIOL ORAL) Take 10 mg by mouth daily at bedtime. ondansetron (ZOFRAN) 8 mg tablet Take 1 tablet by mouth every 8 hours as needed for nausea/vomiting. aspirin, enteric coated (ASPIRIN, ENTERIC COATED) 81 mg EC tablet Take 81 mg by mouth every other day. busPIRone (BUSPAR) 10 mg tablet Take by mouth. ferrous sulfate 325 mg (65 mg iron) tablet Take 325 mg by mouth every 48 hours. meclizine (ANTIVERT) 25 mg tab Take by mouth at bedtime as needed. nystatin (MYCOSTATIN) ointment Apply 1 Application to affected area. insulin glargine (LANTUS SOLOSTAR U-100 INSULIN) 100 unit/mL (3 mL) Inject 80 Units subcutaneously daily at bedtime. irbesartan (AVAPRO) 75 mg tablet Take 75 mg by mouth daily at bedtime. insulin lispro (HUMALOG KWIKPEN INSULIN) 100 unit/mL inpn Inject subcutaneously as directed. amLODIPine (NORVASC) 10 mg tablet Take 10 mg by mouth once daily. Acetaminophen 500 mg cap Take 500 mg by mouth as needed. ondansetron (ZOFRAN) 8 mg tablet Take 1 tablet by mouth every 8 hours as needed for nausea/vomiting. prochlorperazine (COMPAZINE) 10 mg tablet Take 1 tablet by mouth every 6 hours as needed. sulfamethoxazole-trimethoprim (BACTRIM DS) 800-160 mg per tablet Take 1 tablet by mouth two times a day for 5 days. LABORATORY VALUES: WBC (k/uL) Date Value 05/16/2024 5.73 RBC (m/uL) Date Value 05/16/2024 4.24 Hemoglobin (g/dL) Date Value 05/16/2024 12.4 Hematocrit (%) Date Value 05/16/2024 34.9 (L) MCV (fL) Date Value 05/16/2024 82.3 MCH (pg) Date Value 05/16/2024 29.2 MCHC (g/dL) Date Value 05/16/2024 35.5 RDW-CV (%) Date Value 05/16/2024 12.8 Platelet Count (k/uL) Date Value 05/16/2024 276 MPV (fL) Date Value 05/16/2024 8.4 (L) Glucose (mg/dL) Date Value 05/16/2024 287 (H) BUN (mg/dL) Date Value 05/16/2024 11 Creatinine (mg/dL) Date Value 05/16/2024 0.83 Sodium (mmol/L) Date Value 05/16/2024 136 Potassium (mmol/L) Date Value 05/16/2024 4.3 Chloride (mmol/L) Date Value 05/16/2024 99 CO2 (mmol/L) Date Value 05/16/2024 27 Protein, Total (g/dL) Date Value 05/16/2024 6.6 Albumin (g/dL) Date Value 05/16/2024 3.9 Calcium, Total (mg/dL) Date Value 05/16/2024 9.4 Alkaline Phosphatase (U/L) Date Value 05/16/2024 131 (H) Bilirubin, Total (mg/dL) Date Value 05/16/2024 1.0 AST (U/L) Date Value 05/16/2024 9 (L) ALT (U/L) Date Value 05/16/2024 8 DIAGNOSIS: (C20) Rectal cancer (HCC) (primary encounter diagnosis) Plan: ondansetron (ZOFRAN) 8 mg tablet, prochlorperazine (COMPAZINE) 10 mg tablet (L03.90) Wound cellulitis Plan: sulfamethoxazole-trimethoprim (BACTRIM DS) 800-160 mg per tablet PAST MEDICAL HISTORY Diagnosis Date Anxiety Carcinoma of vulva (HCC) Chronic back pain COVID-19 Depression Diabetes (HCC) GERD (gastroesophageal reflux disease) HPV in female Hypertension Ovarian cyst Panic disorder PONV (postoperative nausea and vomiting) Rectal bleeding Rectal cancer (HCC) Rectal mass Sleep apnea Vulval lesion PAST SURGICAL HISTORY Procedure Laterality Date ARTHROSCOPY KNEE DIAGNOSTIC W/WO SYNOVIAL BX SPX Left x2 ARTHRP KNE CONDYLE&PLATU MEDIAL&LAT COMPARTMENTS Left BACK SURGERY HX CHOLECYSTECTOMY HX COLONOSCOPY EGD W/O BRSH SPEC VARICIES INJ LIGATE FALLOPIAN TUBE NASAL ENDOS,DIAG,UNI/ BILATERAL PAST SURGICAL HISTORY OF Dissection of lymph node inguinal femoral PAST SURGICAL HISTORY OF Revision of Episiotomy PAST SURGICAL HISTORY OF 2020 Right Hemivulvectomy/Bilateral inguinal sentinal lymp node dissection TOTAL KNEE REPLACEMENT Left TUBAL LIGATION Social History Tobacco Use Smoking status: Former Types: Cigarettes Passive exposure: Past Smokeless tobacco: Never Substance Use Topics Alcohol use: Yes Comment: occasional Drug use: Never FAMILY HISTORY Problem Relation Age of Onset Diabetes Mother Stroke Mother Hypertension Father Uterine Cancer Maternal Grandmother Diabetes Maternal Grandfather Heart Attack Maternal Grandfather Dementia Paternal Grandmother Heart Attack Paternal Grandfather I spent a total of 30 minutes on the date of the service which included preparing to see the patient, [id number] patient care, completing clinical documentation, obtaining and/or reviewing separately obtained history, performing a medically appropriate examination, counseling and educating the patient/family/caregiver, ordering medications, tests, or procedures, independently interpreting results (not separately reported), and communicating results to the patient/family/caregiver. . Mohsen Carrera APRN, LABOR EXPEDITER-C, OCN Hematology and Oncology Services Provided at: [place], [place] CC: Keaton Hu, DO [address] [facility] [address] Patient has a wound on her lower right leg. She states a spring from an old mattress cut her. It happened at the beginning of the month. She is diabetic. She is putting stuff on it. Sherrie Rogers MA documented in this encounter [facility] 05-16-2024 Note [facility] 05-16-2024 Note [facility] 05-08-2024 History of Presen t illness Narrative IM PROGRESS NOTE Patient - Parvez Riggins Age - 68 y.o. - 1955 ASSESSMENT & PLAN 1. Type 2 diabetes mellitus with microalbuminuria, with long-term current use of insulin ([facility]) (Primary) -goals of treatment reviewed with the patient. -currently on Lantus 64 units nightly along with semaglutide 2 mg weekly -repeat A1c to assess efficacy of current regimen. Further adjustments will be made following testing -continue finerenone 10 mg daily due to microalbuminuria - Hemoglobin A1c; Future 2. Essential hypertension -office readings are acceptable although not ideal today -have been normal at oncology -continue current regimen of irbesartan 300 mg daily, metoprolol 50 mg b.i.d., amlodipine 10 mg daily 3. Mixed hyperlipidemia -currently on atorvastatin 40 mg daily -repeat lipid panel to assess efficacy of current treatment and evaluate for side effects - Comprehensive metabolic panel; Future - Lipid profile; Future 4. Adenocarcinoma of rectum (CMS-HCC) -currently undergoing chemotherapy at [facility] in [place] -did complete radiation therapy -continue follow-up as scheduled 5. Encounter for screening mammogram for malignant neoplasm of breast -flu vaccination given today - Influenza, Trivalent, Adjuvanted - Immunization, In Clinic,; Inject 0.5 mL into the appropriate muscle once for 1 dose. flu vac 65up (PF) 45 MCG(15 MCGX3)/0.5 mL Sign this order to satisfy the OSBOP Positive ID requirements for immunization orders. Subjective DIABETIC VISIT This is a follow up of a pre-existing problem. Patient self monitoring includes finger stick BG checkin time/day and has been having difficulty with the glucometer. Often has to trigger finger 3 or 4 times to get 1 reading. Therefore not checking his often. . Patient experiences hypoglycemia None. Patient symptoms of hyperglycemia include: none. Current prescribed diet is consistent carbohydrate. Patient is not following the prescribed diet plan. Home activity includes: The patient does not participate in regular exercise at present.. Patient does experience numbness or burning in their hands or feet. Patient does have vision changes. Last eye exam was: Unknown Patient BP monitoring is done regularly. BP normally 120 - 129 mmHg / 60 - 69 mmHg. Taken regularly at Oncology Patient reports: taking medications as instructed, no medication side effects noted, no chest pain on exertion, no dyspnea on exertion, no swelling of ankles, no orthostatic dizziness or lightheadedness, no palpitations, and no intermittent claudication symptoms Issues affecting compliance with diabetic self management include: Is taking semaglutide weekly, along with Lantus 64 units nightly. A review of systems was negative except for the following: General: weight gain Musculoskeletal: joint stiffness and pain in back - bilateral and knee - bilateral Dermatological: Tore her skin on right lower leg several weeks ago. Having a slowly healing laceration. Has been treating it with daily washing, and applying Medihoney or Neosporin ointment. The redness has resolved, but still has a dry scab.. Exam BP 120/90 (BP Site: Right Arm, BP Postition: Sitting) Pulse 102 Temp 36.6 C (97.8 F) (Oral) Resp 20 Ht 170.2 cm (5' 7 ) Wt 95.6 kg (210 lb 12.8 oz) SpO2 96% BMI 33.02 kg/m Physical Exam Vitals reviewed. Constitutional: General: She is not in acute distress. Appearance: She is well-developed. She is obese. She is not toxic-appearing. HENT: Head: Normocephalic. Right Ear: External ear normal. Left Ear: External ear normal. Nose: Nose normal. Mouth/Throat: Mouth: Mucous membranes are moist. Eyes: General: No scleral icterus. Neck: Vascular: No carotid bruit. Cardiovascular: Rate and Rhythm: Normal rate and regular rhythm. Pulses: Normal pulses. Heart sounds: No murmur heard. No gallop. Pulmonary: Effort: Pulmonary effort is normal. Breath sounds: No wheezing or rales. Abdominal: Palpations: Abdomen is soft. Musculoskeletal: General: Normal range of motion. Right lower leg: Edema (1+ ankle) present. Left lower leg: Edema (1+ ankle) present. Skin: General: Skin is warm. Coloration: Skin is not jaundiced. Findings: No bruising. Comments: 2 cm X 1 cm dry scab on the lateral lower right leg. No surrounding erythema. Neurological: General: No focal deficit present. Mental Status: She is alert and oriented to person, place, and time. Sensory: No sensory deficit (Intact vibratory sensation bilaterally on the toes, feet and ankles. Intact monofilament testing on the feet, toes and ankles bilaterally.). Motor: No weakness. Coordination: Coordination normal. Deep Tendon Reflexes: Reflexes are normal and symmetric. Psychiatric: Mood and Affect: Mood normal. Behavior: Behavior normal. Left: Pulses Posterior Tibial: diminished Vibratory sensation normal Filament test present Right: Pulses Posterior Tibial: diminished Vibratory sensation normal Filament test present Meds Current Outpatient Medications: amLODIPine (NORVASC) 10 mg tablet, Take 1 tablet (10 mg total) by mouth respiratory nightly., Disp: 90 tablet, Rfl: 1 aspirin 81 mg, Take 1 tablet by mouth daily, Disp: 90 tablet, Rfl: 1 atorvastatin (LIPITOR) 40 mg tablet, Take 1 tablet by mouth daily, Disp: 90 tablet, Rfl: 1 busPIRone (BUSPAR) 10 mg tablet, Take 1 tablet (10 mg total) by mouth in the morning., Disp: 90 tablet, Rfl: 0 clobetasoL (TEMOVATE) 0.05 % cream, Apply 1 Application topically in the morning and 1 Application before bedtime., Disp: 30 g, Rfl: 0 ferrous sulfate (FeroSuL) 325 (65 FE) mg tablet, Take 1 tablet by mouth daily, Disp: 90 tablet, Rfl: 1 finerenone 10 mg tablet, Take 10 mg by mouth in the morning., Disp: 90 tablet, Rfl: 1 insulin glargine (LANTUS SOLOSTAR U-100 INSULIN) 100 unit/mL (3 mL) insulin pen, Inject 60 Units under the skin nightly., Disp: 45 mL, Rfl: 1 irbesartan (AVAPRO) 300 mg tablet, Take 1 tablet by mouth daily, Disp: 90 tablet, Rfl: 1 meclizine (ANTIVERT) 25 mg tablet, Take 1 tablet by mouth daily, Disp: 90 tablet, Rfl: 0 metoprolol tartrate (LOPRESSOR) 50 mg tablet, Take 1 tablet (50 mg total) by mouth in the morning and 1 tablet (50 mg total) before bedtime., Disp: 90 tablet, Rfl: 3 mirtazapine (REMERON) 7.5 mg tablet, take 1 tablet by mouth nightly, Disp: 30 tablet, Rfl: 1 ondansetron (ZOFRAN) 8 mg tablet, Take 1 tablet (8 mg total) by mouth every 8 (eight) hours as needed., Disp: , Rfl: pen needle, diabetic (BD ULTRA-FINE MARIA C PEN NEEDLE) 32 gauge x 5/32 needle, Use to inject insulin four times daily, Disp: 400 each, Rfl: 1 prochlorperazine (COMPAZINE) 10 mg tablet, Take 1 tablet (10 mg total) by mouth every 6 (six) hours as needed., Disp: , Rfl: semaglutide (OZEMPIC) 2 mg/dose (8 mg/3 mL) pen injector, Dial and inject 2 mg under the skin weekly, Disp: 9 mL, Rfl: 0 Immunization, In Clinic,, Inject 0.5 mL into the appropriate muscle once for 1 dose. flu vac 65up (PF) 45 MCG(15 MCGX3)/0.5 mL Sign this order to satisfy the OSBOP Positive ID requirements for immunization orders., Disp: , Rfl: Lab Results No visits with results within 1 Month(s) from this visit. Latest known visit with results is: Hospital Outpatient Visit on 12/27/2023 Component Date Value Ref Range Status Microalbumin urine 12/27/2023 22.6 (H) 0.0 - 1.9 mg/dL Final Urine creat 12/27/2023 457.94 mg/dL Final Alb/creat ratio 12/27/2023 49.4 (H) 0.0 - 30.0 mg/g creat Final Cholesterol 12/27/2023 262 (H) 150 - 200 mg/dL Final Triglycerides 12/27/2023 331 (H) 27 - 150 mg/dL Final HDL Cholesterol 12/27/2023 38 (L) >39 mg/dL Final VLDL 12/27/2023 66 (H) 0 - 30 mg/dL Final LDL (calc) 12/27/2023 158 (H) <130 mg/dL Final Cholesterol:HDL Ratio 12/27/2023 6.9 (H) 1.0 - 5.0 Final Hemoglobin A1C 12/27/2023 8.3 (H) 4.4 - 5.6 % Final Average glucose 12/27/2023 192 mg/dL Final Sodium 12/27/2023 141 134 - 146 mmol/L Final Potassium, Bld 12/27/2023 3.3 (L) 3.5 - 5.0 mmol/L Final Chloride 12/27/2023 102 98 - 109 mmol/L Final CO2 12/27/2023 28 22 - 32 mmol/L Final Anion gap 12/27/2023 11 5 - 15 mmol/L Final BUN 12/27/2023 11 5 - 27 mg/dL Final Creatinine 12/27/2023 1.03 (H) 0.40 - 1.00 mg/dL Final Glucose 12/27/2023 206 (H) 65 - 99 mg/dL Final Calcium 12/27/2023 10.6 (H) 8.5 - 10.5 mg/dL Final Total Protein 12/27/2023 7.2 6.0 - 8.0 g/dL Final Albumin 12/27/2023 4.2 3.2 - 5.3 g/dL Final Alkaline Phosphatase 12/27/2023 90 39 - 130 U/L Final AST 12/27/2023 15 0 - 41 U/L Final ALT 12/27/2023 10 0 - 31 U/L Final Total bilirubin 12/27/2023 1.7 (H) 0.3 - 1.2 mg/dL Final eGFR (CKD-EPI)non-race dependent 12/27/2023 60 >59 ml/min/1.73sq.m Final Other Testing No results found. Keaton Hu DO., [facility] Office: [phone] documented in this encounter [facility] 04-28-2024 Telephone encounter Note Patient called back and got a message about her missed follow up. She states she thought it was next week and has been rescheduled to 05/16 (date req per patient wanted to wait until after the holidays). She also stated she has COVID. She tested positive on Sunday with cold like symptoms and went to urgent care. She said she was around her daughter's friend for the holiday who was sick. She currently is on antibiotics for her symptoms. Anna Clay [facility] 04-28-2024 Miscellaneous Notes Patient called back and got a message about her missed follow up. She states she thought it was next week and has been rescheduled to 05/16 (date req per patient wanted to wait until after the holidays). She also stated she has COVID. She tested positive on Sunday with cold like symptoms and went to urgent care. She said she was around her daughter's friend for the holiday who was sick. She currently is on antibiotics for her symptoms. Anna Clay Patient did not show for RV and treatment today. Anna Clay documented in this encounter [facility] 04-24-2024 Telephone encounter Note Patient did not show for RV and treatment today. Anna Clay [facility] 04-10-2024 Note [facility] 04-10-2024 History of Presen t illness Narrative Images from the original note were not included. NAME: Parvez Riggins [facility] NO.: [id number] DATE OF SERVICE: April 10, 2024 (Talon) Some elements in this clinic note that are critical to medical decision making have been carefully reviewed and included from a prior clinic note dated: March 20, 2024 (Devin) Referring Provider: Arturo Mcdonald MD Additional Clinicians involved in Parvez Riggins's care: DIAGNOSIS: Rectal Cancer- MRI Staged T3a,N+,M0- RHYS ASSESSMENT: 68 year old female here for follow up. Rectal cancer-started planned YANIV. Started radiation and xeloda on October 16, 2023. She is doing well. She does have fatigue but otherwise no major side effects. She will complete xeloda and xrt on 11/23/2023. I have arranged for a repeat MRI rectum and a follow up with [facility]. She has decided she would like to maintain her care in [place] and I will offer her a follow up with a new oncologist in 2-3 weeks to plan her YANIV therapy. She does not have a port and wishes to proceed without one. Proceed with CAPOX. 5 mm left-sided nodular opacity on initial staging CT--will repeat CT chest before her return Post dental extraction DM2--not well controlled. She will follow up with her PCP for this - blood sugar is high today but will need to resume ozempic and see her PCP. PLAN: She has requested to delay treatment due to the upcoming holiday RTC in 2 weeks for C3 D1 CAPOX Labs Clinician and treat same day HPI: CASE HISTORY: Reverse Chronological Order 01/31/2024 - Start CAPOX C1 D1 01/10/2024 - MRI Rectum: Since 09/04/23, post treatment primary tumor assessment: Incomplete response (likely residual tumor). Previously noted polypoid masslike rectal neoplasm has decreased with residual wall thickening. Interval resolution of previously noted mesorectal lymph nodes. mrTRG: Grade 3 - Moderate response Suspicious Mesorectal lymph nodes: No. Suspicious Extramesorectal lymph nodes: No. 11/23/2023 - CT Chest: No metastatic disease in the chest. 10/28/2023 - CT A/P: Moderate amount of stool in the colon with a large amount of stool in the colorectal junction. There is been interval decreased size of the distal rectal mass however there is luminal narrowing which could represent a component of stricture formation however there is no significant proximal colonic dilatation. Consider nonemergent fluoroscopic barium enema for further assessment. 10/16/2023-11/23/2023 - Xeloda and XRT, planned YANIV 08/2023 - MRI Rectum: MID RECTAL SEMIANNULAR MASS. Stage: T3a N+ MRF: Clear (tumor margin >2 mm from MRF), however a metastatic mesorectal lymph node abuts the MRF Sphincter involvement: No. Suspicious extra mesorectal lymph nodes: No. EMVI: No. 07/16/2023 - CT CAP: Chest: Left-sided nodular opacities measuring up to 5 mm. Metastatic disease is not excluded. Recommend continued attention to these areas on follow-up exams. No evidence of intrathoracic lymphadenopathy. A/P: Large rectal mass with numerous enlarged perirectal nodes, suspicious for ami metastatic disease. No additional findings to suggest distant abdominal or pelvic metastatic disease. Linear bandlike hypodensity within the spleen, suggestive of a splenic infarct. 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 06/2023 - Colonoscopy: Rectal mass, procedure not specified: - 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 Anal verge, procedure not specified: - Inflammatory cloacogenic polyp, ulcerated, negative for dysplasia or carcinoma. Updated Visit, April 10, 2024: Parvez Riggins returns for scheduled follow-up and treatment. Today she states that she is not doing well and does not want treatment today. She has a lot of personal issues going on. She has been having family issues. Her daughter was recently diagnosed with bipolar. The patient states that her daughter told her I am the way I and because of you . She complains of being fatigued she is not sleeping well. She states that her brain will not shut off . She has some nausea with treatment. No vomiting. She denies fevers, chills, night sweats and signs/symptoms of infection. No bleeding or abnormal bruising. Updated Visit, March 20, 2024: Had an accident last time and was severely hypokalemic - went home before we saw her. Her last infusion site on her left hand still bothering her from oxaliplatin. On a positive note - her daughter is trying to improve their relationship again. Labs are safe to proceed. Updated Visit, January 31, 2024: Parvez returns today to start CAPOX. She admits she is nervous to start treatment and that she would not like surgery in the future. We discussed her mental health and her familial relationships. I recommended she follow up with our social insurance analyst as she can also assist with transportation needs. She is very involved with her anabaptist and may reach out to them for emotional support. I also advised her to reconsider surgical intervention as this disease is curable. Initial Visit, January 15, 2024: Transition of Care Parvez Riggins presents today to transition her care as her previous provider left the practice. MRI of the rectum shows incomplete response - she is in agreement to continue treatment with CAPOX. We discussed potential AEs, including cold-induced neuropathy. 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 Her therapy dog is known as Enrique and is 10 years old. November 21, 2023: Parvez returns for follow up. Overall she is doing well with her treatments. She denies diarrhea, however she does sometimes lose bowels when she doesn't expect it. Denies any mucositis or HFS. She is scheduled to finish radiation on 11/23/2023. REVIEW OF SYSTEMS Per HPI and otherwise negative by full review of organ systems. ECOG PERFORMANCE STATUS: PHYSICAL EXAMINATION: Vitals: BP 183/94[recheck BP//patient states did not take BP medicine this morning.[ Pulse 94 Temp (Src) 97.2 (Temporal) Resp 18 Ht 5' 7.717 [verified by 2 caregivers with shoes on[ (1.72m) Wt 207 lb 3.7 oz (94.0kg) SpO2 97% BMI 31.77 kg/(m^2). Body surface area is 2.12 meters squared. Exam limited to gross visualization where appropriate. Gen.: This is an age-appropriate patient in no acute distress. Head: Appears atraumatic with no visible lesions. Eyes: Pupils equally round and reactive to light, extraocular muscles are intact. Neck: Supple. Respiratory: Appears to be respiring comfortably. Neurologic: Nonfocal to gross visualization. Alert and oriented 3. Psychiatric: No evidence of inappropriate anxiety or depression. Skin: Visible areas of skin without rash, lesions, wounds or petechiae. ALLERGIES: ALLERGIES Allergen Reactions Codeine Other: See Comments Nausea Tramadol Vomiting MEDICATIONS: capecitabine (XELODA) 500 mg tablet Take 5 tablets (2,500 mg) by mouth two times a day. 14 days on 7 days off prochlorperazine (COMPAZINE) 10 mg tablet Take 1 tablet by mouth every 6 hours as needed. ondansetron (ZOFRAN) 8 mg tablet Take 1 tablet by mouth every 8 hours as needed for nausea/vomiting. polyethylene glycol 3350 17 gram packet Take 17 g by mouth. semaglutide (OZEMPIC) 1 mg/dose (2 mg/1.5 mL) pen Inject 1 mg subcutaneously one time a week. atorvastatin (LIPITOR) 40 mg tablet Take 40 mg by mouth daily at bedtime. clobetasol (TEMOVATE) 0.05 % cream Apply 1 Application to affected area two times a day. metoprolol tartrate, short acting, (LOPRESSOR) 50 mg tablet Take 50 mg by mouth two times a day. Mirtazapine (REMERON) 7.5 mg tablet Take 7.5 mg by mouth once daily. JANUMET XR 50-1,000 mg TM24 Take 1 tablet by mouth every afternoon. spironolactone (ALDACTONE) 25 mg tablet Take 50 mg by mouth every morning. cannabidiol, CBD, (CANNABIDIOL ORAL) Take 10 mg by mouth daily at bedtime. prochlorperazine (COMPAZINE) 10 mg tablet Take 1 tablet by mouth every 6 hours as needed. ondansetron (ZOFRAN) 8 mg tablet Take 1 tablet by mouth every 8 hours as needed for nausea/vomiting. aspirin, enteric coated (ASPIRIN, ENTERIC COATED) 81 mg EC tablet Take 81 mg by mouth every other day. busPIRone (BUSPAR) 10 mg tablet Take by mouth. ferrous sulfate 325 mg (65 mg iron) tablet Take 325 mg by mouth every 48 hours. meclizine (ANTIVERT) 25 mg tab Take by mouth at bedtime as needed. nystatin (MYCOSTATIN) ointment Apply 1 Application to affected area. insulin glargine (LANTUS SOLOSTAR U-100 INSULIN) 100 unit/mL (3 mL) Inject 80 Units subcutaneously daily at bedtime. irbesartan (AVAPRO) 75 mg tablet Take 75 mg by mouth daily at bedtime. insulin lispro (HUMALOG KWIKPEN INSULIN) 100 unit/mL inpn Inject subcutaneously as directed. amLODIPine (NORVASC) 10 mg tablet Take 10 mg by mouth once daily. Acetaminophen 500 mg cap Take 500 mg by mouth as needed. LABORATORY VALUES: WBC (k/uL) Date Value 04/10/2024 4.21 RBC (m/uL) Date Value 04/10/2024 4.58 Hemoglobin (g/dL) Date Value 04/10/2024 13.3 Hematocrit (%) Date Value 04/10/2024 37.5 MCV (fL) Date Value 04/10/2024 81.9 MCH (pg) Date Value 04/10/2024 29.0 MCHC (g/dL) Date Value 04/10/2024 35.5 RDW-CV (%) Date Value 04/10/2024 13.5 Platelet Count (k/uL) Date Value 04/10/2024 297 MPV (fL) Date Value 04/10/2024 8.6 (L) Glucose (mg/dL) Date Value 04/10/2024 413 (H) BUN (mg/dL) Date Value 04/10/2024 6 (L) Creatinine (mg/dL) Date Value 04/10/2024 0.84 Sodium (mmol/L) Date Value 04/10/2024 135 (L) Potassium (mmol/L) Date Value 04/10/2024 3.3 (L) Chloride (mmol/L) Date Value 04/10/2024 94 (L) CO2 (mmol/L) Date Value 04/10/2024 29 Protein, Total (g/dL) Date Value 04/10/2024 7.1 Albumin (g/dL) Date Value 04/10/2024 4.0 Calcium, Total (mg/dL) Date Value 04/10/2024 9.8 Alkaline Phosphatase (U/L) Date Value 04/10/2024 137 (H) Bilirubin, Total (mg/dL) Date Value 04/10/2024 0.6 AST (U/L) Date Value 04/10/2024 12 (L) ALT (U/L) Date Value 04/10/2024 12 DIAGNOSIS: (C20) Rectal cancer (HCC) (primary encounter diagnosis) (E11.69, Z79.4) Type 2 diabetes mellitus with other specified complication, with long-term current use of insulin (HCC) PAST MEDICAL HISTORY Diagnosis Date Anxiety Carcinoma of vulva (HCC) Chronic back pain COVID-19 Depression Diabetes (HCC) GERD (gastroesophageal reflux disease) HPV in female Hypertension Ovarian cyst Panic disorder PONV (postoperative nausea and vomiting) Rectal bleeding Rectal cancer (HCC) Rectal mass Sleep apnea Vulval lesion PAST SURGICAL HISTORY Procedure Laterality Date ARTHROSCOPY KNEE DIAGNOSTIC W/WO SYNOVIAL BX SPX Left x2 ARTHRP KNE CONDYLE&PLATU MEDIAL&LAT COMPARTMENTS Left BACK SURGERY HX CHOLECYSTECTOMY HX COLONOSCOPY EGD W/O BRSH SPEC VARICIES INJ LIGATE FALLOPIAN TUBE NASAL ENDOS,DIAG,UNI/ BILATERAL PAST SURGICAL HISTORY OF Dissection of lymph node inguinal femoral PAST SURGICAL HISTORY OF Revision of Episiotomy PAST SURGICAL HISTORY OF 2020 Right Hemivulvectomy/Bilateral inguinal sentinal lymp node dissection TOTAL KNEE REPLACEMENT Left TUBAL LIGATION Social History Tobacco Use Smoking status: Former Types: Cigarettes Passive exposure: Past Smokeless tobacco: Never Substance Use Topics Alcohol use: Yes Comment: occasional Drug use: Never FAMILY HISTORY Problem Relation Age of Onset Diabetes Mother Stroke Mother Hypertension Father Uterine Cancer Maternal Grandmother Diabetes Maternal Grandfather Heart Attack Maternal Grandfather Dementia Paternal Grandmother Heart Attack Paternal Grandfather I spent a total of 30 minutes on the date of the service which included preparing to see the patient, [id number] patient care, completing clinical documentation, obtaining and/or reviewing separately obtained history, performing a medically appropriate examination, counseling and educating the patient/family/caregiver, ordering medications, tests, or procedures, independently interpreting results (not separately reported), and communicating results to the patient/family/caregiver. Margarette Hernandez APRN.[facility] Hematology and Oncology Services Provided at: [facility], [place], [place] CC: Keaton Hu, DO [address] [place] [id number] documented in this encounter [facility] 03-24-2024 Telephone encounter Note Call received from pt stating she hasn't felt well at all since her last treatment. Weakness, fatigue, nausea, bloating, constipation, headache. Assessing pt further she tried nausea medication once and she's not sure if it helped or not so she hasn't taken any more. Pt states she drinks pepsi, coke, and tea all day long so feels she's very well hydrated. Pt states she did take some laxatives and feels she finally had a decent bowel movement this morning. Pt states in general she's just very wiped out and tired. Encouraged pt to take tylenol as needed for headaches. Educated pt on fluids that do not contain caffeine and that she needs to increase these fluids to >60 oz daily. Also recommended that pt take her antiemetics for nausea to see if these help. Pt verbalized understanding of this, has both compazine and zofran, and will alternate as needed for any nausea she has. Offered pt to come in to have labs checked as well as a visit and she declined, stating she doesn't have a ride and she doesn't feel well enough to make the trip here. Pt states she will do what our recommendations are and call the office if she doesn't improve. Please advise otherwise Thanks Little Bowens RN [facility] Work Phone: 03-24-2024 Miscellaneous Notes Call received from pt stating she hasn't felt well at all since her last treatment. Weakness, fatigue, nausea, bloating, constipation, headache. Assessing pt further she tried nausea medication once and she's not sure if it helped or not so she hasn't taken any more. Pt states she drinks pepsi, coke, and tea all day long so feels she's very well hydrated. Pt states she did take some laxatives and feels she finally had a decent bowel movement this morning. Pt states in general she's just very wiped out and tired. Encouraged pt to take tylenol as needed for headaches. Educated pt on fluids that do not contain caffeine and that she needs to increase these fluids to >60 oz daily. Also recommended that pt take her antiemetics for nausea to see if these help. Pt verbalized understanding of this, has both compazine and zofran, and will alternate as needed for any nausea she has. Offered pt to come in to have labs checked as well as a visit and she declined, stating she doesn't have a ride and she doesn't feel well enough to make the trip here. Pt states she will do what our recommendations are and call the office if she doesn't improve. Please advise otherwise Thanks Little Bowens RN documented in this encounter [facility] 03-22-2024 Evaluation note Diagnosis Rectal cancer (HCC)- Primary Malignant neoplasm of rectum Stage 3a chronic kidney disease (HCC) Type 2 diabetes mellitus with other specified complication, with long-term current use of insulin (HCC) documented in this encounter [facility]11-01-2024 Miscellaneous Notes* Telephone Encounter - Winter Snider CMA - 03/21/2024 12:25 PM EDT LM to Trey and schedule [facility] Note* Telephone Encounter - Winter Snider CMA - 03/21/2024 12:25 PM EDT HARITHA to Trey and schedule Dm apt [facility]10-31-2024 Instructions* Patient Instructions* Blu Tellez MD - 03/20/2024 1:10 PM EDT Start CAPOX Cycle2 Day1 today Dose reduced oxaliplatin to 100mg/m2 RTC in 3 weeks for C3 D1 CAPOX Labs Clinician and treat same day [facility] History of Present illness Narrative* Blu Tellez MD - 03/20/2024 1:00 PM EDT Images from the original note were not included. NAME: Parvez Riggins CLINIC NO.: [id number] DATE OF SERVICE: March 20, 2024 (Devin) Some elements in this clinic note that are critical to medical decision making have been carefully reviewed and included from a prior clinic note dated: January 31, 2024 (Devin) Referring Provider: Arturo Mcdonald MD Additional Clinicians involved in Parvez Riggins's care: DIAGNOSIS: Rectal Cancer- MRI Staged T3a,N+,M0- RHYS ASSESSMENT: 68 year old female here for follow up. Rectal cancer-started planned YANIV. Started radiation and xeloda on October 16, 2023. She is doing well.She does have fatigue but otherwise no major side effects. She will complete xeloda and xrt on 11/23/2023. I have arranged for a repeat MRI rectum and a follow up with [facility]. She has decided she would like to maintain her care in [place] and I will offer her a follow up with a new oncologist in 2-3 weeks to plan her YANIV therapy. She does not have a port and wishes to proceed without one. Proceed with CAPOX. 5 mm left-sided nodular opacity on initial staging CT--will repeat CT chest before her return Post dental extraction DM2--not well controlled. She will follow up with her PCP for this - blood sugar is high today but will need to resume ozempic and see her PCP. PLAN: Start CAPOX Cycle2 Day1 today Dose reduced oxaliplatin to 100mg/m2 RTC in 3 weeks for C3 D1 CAPOX Labs Clinician and treat same day HPI: CASE HISTORY: Reverse Chronological Order 01/31/2024 - Start CAPOX C1 D1 01/10/2024 - MRI Rectum: Since 09/04/23, post treatment primary tumor assessment: Incomplete response (likely residual tumor). Previously noted polypoid masslike rectal neoplasm hasdecreased with residual wall thickening. Interval resolution of previously noted mesorectal lymph nodes. mrTRG: Grade 3 - Moderate response Suspicious Mesorectal lymph nodes: No. Suspicious Extramesorectal lymph nodes: No. 11/23/2023 - CT Chest: No metastatic disease in the chest. 10/28/2023 - CT A/P: Moderate amount of stool in the colon with a large amount of stool in the colorectal junction. There is been interval decreased size of the distal rectal mass however there is luminal narrowing whichcould represent a component of stricture formation however there is no significant proximal colonicdilatation. Consider nonemergent fluoroscopic barium enema for further assessment. 10/16/2023-11/23/2023 - Xeloda and XRT, planned YANIV 08/2023 - MRI Rectum: MID RECTAL SEMIANNULAR MASS. Stage: T3a N+ MRF: Clear (tumor margin >2 mm from MRF), however a metastatic mesorectal lymph node abuts the MRF Sphincter involvement: No. Suspicious extra mesorectal lymph nodes: No. EMVI: No. 07/16/2023 - CT CAP: Chest: Left-sided nodular opacities measuring up to 5 mm. Metastatic disease is not excluded. Recommend continued attention to these areas on follow-up exams. No evidence of intrathoracic lymphadenopathy. A/P: Large rectal mass with numerous enlarged perirectal nodes, suspicious for ami metastatic disease. No additional findings to suggest distant abdominal or pelvic metastatic disease. Linear bandlike hypodensity within the spleen, suggestive of a splenic infarct. 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 06/2023 - Colonoscopy: Rectal mass, procedure not specified: - 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 Anal verge, procedure not specified: - Inflammatory cloacogenic polyp, ulcerated, negative for dysplasia or carcinoma. Updated Visit, March 20, 2024: Had an accident last time and was severely hypokalemic - went home before we saw her. Her last infusion site on her left hand still bothering her from oxaliplatin. On a positive note - her daughter is trying to improve their relationship again. Labs are safe to proceed. Updated Visit, January 31, 2024: Parvez returns today to start CAPOX. She admits she is nervous to start treatment and that she wouldnot like surgery in the future. We discussed her mental health and her familial relationships. I recommended she follow up with our social insurance analyst as she can also assist with transportation needs. Sheis very involved with her anabaptist and may reach out to them for emotional support. I also advised her to reconsider surgical intervention as this disease is curable. Initial Visit, January 15, 2024: Transition of Care Parvez Riggins presents today to transition her care as her previous provider left the practice. MRI of the rectum shows incomplete response - she is in agreement to continue treatment with CAPOX. We discussed potential AEs, including cold- induced neuropathy. 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 November 21, 2023: Parvez returns for follow up. Overall she is doing well with her treatments. She denies diarrhea, however she does sometimes lose bowels when she doesn't expect it. Denies any mucositis or HFS. She is scheduled to finish radiation on 11/23/2023. REVIEW OF SYSTEMS Per HPI and otherwise negative by full review of organ systems. ECOG PERFORMANCE STATUS: PHYSICAL EXAMINATION: Vitals: BP 165/90 Pulse 92 Temp (Src) 97.1 (Temporal) Resp 18 Wt 204 lb 5.9 oz (92.7kg) SpO2 96% Body surface area is 2.09 meters squared. Exam limited to gross visualization where appropriate. Gen.: This is an age-appropriate patient in no acute distress. Head: Appears atraumatic with no visible lesions. Eyes: Pupils equally round and reactive to light, extraocular muscles are intact. Neck: Supple. Respiratory: Appears to be respiring comfortably. Neurologic: Nonfocal to gross visualization. Alert and oriented 3. Psychiatric: No evidence of inappropriate anxiety or depression. Skin: Visible areas of skin without rash, lesions, wounds or petechiae. ALLERGIES: ALLERGIES Allergen Reactions Codeine Other: See Comments Nausea Tramadol Vomiting MEDICATIONS: capecitabine (XELODA) 500 mg tablet Take 5 tablets (2,500 mg) by mouth two times a day. 14 days on 7 days off prochlorperazine (COMPAZINE) 10 mg tablet Take 1 tablet by mouth every 6 hours as needed. ondansetron (ZOFRAN) 8 mg tablet Take 1 tablet by mouth every 8 hours as needed for nausea/vomiting. polyethylene glycol 3350 17 gram packet Take 17 g by mouth. semaglutide (OZEMPIC) 1 mg/dose (2 mg/1.5 mL) pen Inject 1 mg subcutaneously one time a week. atorvastatin (LIPITOR) 40 mg tablet Take 40 mg by mouth daily at bedtime. clobetasol (TEMOVATE) 0.05 % cream Apply 1 Application to affected area two times a day. metoprolol tartrate, short acting, (LOPRESSOR) 50 mg tablet Take 50 mg by mouth two times a day. Mirtazapine (REMERON) 7.5 mg tablet Take 7.5 mg by mouth once daily. JANUMET XR 50-1,000 mg TM24 Take 1 tablet by mouth every afternoon. spironolactone (ALDACTONE) 25 mg tablet Take 50 mg by mouth every morning. cannabidiol, CBD, (CANNABIDIOL ORAL) Take 10 mg by mouth daily at bedtime. prochlorperazine (COMPAZINE) 10 mg tablet Take 1 tablet by mouth every 6 hours as needed. ondansetron (ZOFRAN) 8 mg tablet Take 1 tablet by mouth every 8 hours as needed for nausea/vomiting. aspirin, enteric coated (ASPIRIN, ENTERIC COATED) 81 mg EC tablet Take 81 mg by mouth every other day. busPIRone (BUSPAR) 10 mg tablet Take by mouth. ferrous sulfate 325 mg (65 mg iron) tablet Take 325 mg by mouth every 48 hours. meclizine (ANTIVERT) 25 mg tab Take by mouth at bedtime as needed. nystatin (MYCOSTATIN) ointment Apply 1 Application to affected area. insulin glargine (LANTUS SOLOSTAR U-100 INSULIN) 100 unit/mL (3 mL) Inject 80 Units subcutaneously daily at bedtime. irbesartan (AVAPRO) 75 mg tablet Take 75 mg by mouth daily at bedtime. insulin lispro (HUMALOG KWIKPEN INSULIN) 100 unit/mL inpn Inject subcutaneously as directed. amLODIPine (NORVASC) 10 mg tablet Take 10 mg by mouth once daily. Acetaminophen 500 mg cap Take 500 mg by mouth as needed. LABORATORY VALUES: WBC (k/uL) Date Value 03/20/2024 4.50 RBC (m/uL) Date Value 03/20/2024 4.41 Hemoglobin (g/dL) Date Value 03/20/2024 12.8 Hematocrit (%) Date Value 03/20/2024 36.5 MCV (fL) Date Value 03/20/2024 82.8 MCH (pg) Date Value 03/20/2024 29.0 MCHC (g/dL) Date Value 03/20/2024 35.1 RDW-CV (%) Date Value 03/20/2024 13.1 Platelet Count (k/uL) Date Value 03/20/2024 310 MPV (fL) Date Value 03/20/2024 9.1 Glucose (mg/dL) Date Value 03/20/2024 434 (H) BUN (mg/dL) Date Value 03/20/2024 16 Creatinine (mg/dL) Date Value 03/20/2024 1.02 (H) Sodium (mmol/L) Date Value 03/20/2024 138 Potassium (mmol/L) Date Value 03/20/2024 4.2 Chloride (mmol/L) Date Value 03/20/2024 96 (L) CO2 (mmol/L) Date Value 03/20/2024 27 Protein, Total (g/dL) Date Value 03/20/2024 7.2 Albumin (g/dL) Date Value 03/20/2024 4.1 Calcium, Total (mg/dL) Date Value 03/20/2024 10.0 Alkaline Phosphatase (U/L) Date Value 03/20/2024 132 (H) Bilirubin, Total (mg/dL) Date Value 03/20/2024 0.7 AST (U/L) Date Value 03/20/2024 9 (L) ALT (U/L) Date Value 03/20/2024 11 DIAGNOSIS: (C20) Rectal cancer (HCC) (primary encounter diagnosis) (N18.31) Stage 3a chronic kidney disease (HCC) (E11.69, Z79.4) Type 2 diabetes mellitus with other specified complication, with long-term current use of insulin (HCC) PAST MEDICAL HISTORY Diagnosis Date Anxiety Carcinoma of vulva (HCC) Chronic back pain COVID-19 Depression Diabetes (HCC) GERD (gastroesophageal reflux disease) HPV in female Hypertension Ovarian cyst Panic disorder PONV (postoperative nausea and vomiting) Rectal bleeding Rectal cancer (HCC) Rectal mass Sleep apnea Vulval lesion PAST SURGICAL HISTORY Procedure Laterality Date ARTHROSCOPY KNEE DIAGNOSTIC W/WO SYNOVIAL BX SPX Left x2 ARTHRP KNE CONDYLE&PLATU MEDIAL&LAT COMPARTMENTS Left BACK SURGERY HX CHOLECYSTECTOMY HX COLONOSCOPY EGD W/O BRSH SPEC VARICIES INJ LIGATE FALLOPIAN TUBE NASAL ENDOS,DIAG,UNI/ BILATERAL PAST SURGICAL HISTORY OF Dissection of lymph node inguinal femoral PAST SURGICAL HISTORY OF Revision of Episiotomy PAST SURGICAL HISTORY OF 2020 Right Hemivulvectomy/Bilateral inguinal sentinal lymp node dissection TOTAL KNEE REPLACEMENT Left TUBAL LIGATION Social History Tobacco Use Smoking status: Former Types: Cigarettes Passive exposure: Past Smokeless tobacco: Never Substance Use Topics Alcohol use: Yes Comment: occasional Drug use: Never FAMILY HISTORY Problem Relation Age of Onset Diabetes Mother Stroke Mother Hypertension Father Uterine Cancer Maternal Grandmother Diabetes Maternal Grandfather Heart Attack Maternal Grandfather Dementia Paternal Grandmother Heart Attack Paternal Grandfather I spent a total of 30 minutes on the date of the service which included preparing to see the patient, [id number] patient care, completing clinical documentation, obtaining and/or reviewing separately obtained history, performing a medically appropriate examination, counseling and educating the pat ient/family/caregiver, ordering medications, tests, or procedures, communicating with other HCPs (not separately reported), independently interpreting results (not separately reported), communicatingresults to the patient/family/caregiver, and care coordination (not separately reported). Blu Tellez MD, CPE H[facility]ology [facility] On[facility] Provided at: [place], [place] CC: Keaton Hu, [address] [facility] [id number] documented in this encounterAd[facility]-31-[facility] Note[facility] Telephone encounter Note* Telephone Encounter - Anna Clay - 03/13/2024 10:59 AM EDT Was able to reach patient today and she has been scheduled for 03/20. Anna Clay [facility]10-24-2024 Miscellaneous Notes* Telephone Encounter - Anna Clay - 03/13/2024 10:59 AM EDT Was able to reach patient today and she has been scheduled for 03/20. Anna Clay * Telephone Encounter - Anna Clay - 03/10/2024 1:25 PM EDT Call placed to patient, no answer again. Left detailed message to call back to reschedule. Anna Clay * Telephone Encounter - Anna Clay - 03/07/2024 1:27 PM EDT Patient left office without being seen yesterday - she had an accident prior to yesterday's visit with Dr. Tellez and per Dr. Tellez, patient left and will need to be rescheduled. Call placed to patient, no answer. Left detailed message for patient to call back to reschedule. Anna Clay documented in this encounterAd[facility]10-21-2024 Telephone encounter Note * Telephone Encounter - Anna Clay - 03/10/2024 1:25 PM EDT Call placed to patient, no answer again. Left detailed message to call back to reschedule. Anna lCay [facility]10-18-2024 Telephone encounter Note* Telephone Encounter - Anna Clay - 03/07/2024 1:27 PM EDT Patient left office without being seen yesterday - she had an accident prior to yesterday's visit with Dr. Tellez and per Dr. Tellez, patient left and will need to be rescheduled. Call placed to patient, no answer. Left detailed message for patient to call back to reschedule. Anna Clay [facility]10-02-2024 Telephone encounter Note* Telephone Encounter - Anna Clay - 02/20/2024 9:26 AM EDT Avril called me back last night w/ an update. She states she did speak to the patient about stopping her Ozempic prior. She tried calling patient to reschedule, offered next week and she is waiting for patient to call her back. Anna Clay [facility]10-02-2024 Miscellaneous Notes* Telephone Encounter - Anna Clay - 02/20/2024 9:26 AM EDT Avril called me back last night w/ an update. She states she did speak to the patient about stopping her Ozempic prior. She tried calling patient to reschedule, offered next week and she is waiting for patient to call her back. Anna Clay * Telephone Encounter - Anna Clay - 02/19/2024 11:52 AM EDT Patient calls late yesterday to report she could not get her port placed yesterday because she was to stop her Ozempic 1 week prior that she continued to take and no one told her about that so port had to be cancelled and she needs to cancel her 02/[address]. [address] [facility] [place] see if patient's port placement was rescheduled and [facility] just shows port appointment scheduled for 02/12 (not yesterday) that had to be cancelled due to medication. I also called Avril at Dr. Ba's office for update on when port will be rescheduled - had to leave a message. Call placed to patient, no answer. Left detailed message on voicemail to call me back. Cancelled appointment on 02/20 and will wait to reschedule until port reschedule is determined. Per patient previous phone encounter, patient did not want to continue anymore treatments until port was placed. Anna Clay documented in this encounterAd[facility]10-01-2024 Telephone encounter Note * Telephone Encounter - Anna Clay - 02/19/2024 11:52 AM EDT Patient calls late yesterday to report she could not get her port placed yesterday because she was to stop her Ozempic 1 week prior that she continued to take and no one told her about that so port had to be cancelled and she needs to cancel her 02/[address]. [address] [facility] to see if patient's port placement was rescheduled and [facility] just shows port appointment scheduled for 02/12 (not yesterday) that had to be cancelled due to medication. I also called Avril at Dr. Ba's office for update on when port will be rescheduled - had to leave a message. Call placed to patient, no answer. Left detailed message on voicemail to call me back. Cancelled appointment on 02/20 and will wait to reschedule until port reschedule is determined. Per patient previous phone encounter, patient did not want to continue anymore treatments until port was placed. Anna Clay [facility]09-18-[facility] Telephone encounter Note* Telephone Encounter - Little Bowens RN - 02/06/2024 10:08 AM EDT Patient phones requesting refills as follows: Requested Prescriptions Pending Prescriptions Disp Refills prochlorperazine (COMPAZINE) 10 mg tablet 100 tablet 2 Sig: Take 1 tablet by mouth every 6 hours as needed. ondansetron (ZOFRAN) 8 mg tablet 90 tablet 2 Sig: Take 1 tablet by mouth every 8 hours as needed for nausea/vomiting. Please review and advise. Pt states she threw away her antiemetics after radiation because she thought she was done with treatment. Little Bowens RN [facility] Work Phone: [phone] Miscellaneous Notes* Telephone Encounter - Little Bowens RN - 02/06/2024 10:08 AM EDT Patient phones requesting refills as follows: Requested Prescriptions Pending Prescriptions Disp Refills prochlorperazine (COMPAZINE) 10 mg tablet 100 tablet 2 Sig: Take 1 tablet by mouth every 6 hours as needed. ondansetron (ZOFRAN) 8 mg tablet 90 tablet 2 Sig: Take 1 tablet by mouth every 8 hours as needed for nausea/vomiting. Please review and advise. Pt states she threw away her antiemetics after radiation because she thought she was done with treatment. Little Bowens RN documented in this encounterAdams [facility] Center09-18-2024 Telephone encounter Note * Telephone Encounter - Little Bowens RN - 02/06/2024 9:49 AM EDT CYCLE 1/DAY 1 POST TREATMENT CALL Today's date: February 06, 2024 Treatment Regimen: Oxaliplatin with Xeloda C1D1 Date: 01/31/24 Called patient to follow-up on symptom management. Spoke with patient SYMPTOM ASSESSMENT Neuro: Headache Yes off and on. Woke up this morning with one., Cold sensitivity Yes pt states she forgot and drank ice water when she got home from treatment and her throat hurt for a couple of days. This has resolved. 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 Is on ozempic and feels this may be contributing as well. , Nausea Yes mild, off and on. Resolves on it's own. Pt doesn't have antiemetics in the home. States she pitched them after radiation because she thought she was done with treatment and wouldn't need them anymore. , Fluid intake: fair, Diarrhea: yes, once a couple of days ago. Took pepto bismolwith relief. , Constipation: yes, last BM yesterday. Had constipation a couple of days after treatment, resolved now., and Bladder/Urinary Changes: None Integument: No Denies HFS Activity: pt states she's always tired. Pain: No=0 (pain 0 on a scale of 0-10). Fever: No Chills: No Any new referrals needed? No Reinforced CURRENT treatment education based on current and anticipated symptoms. Discussed port/line care and patient verbalizes understanding: Yes states she has neuropathy reallybad on her left hand where her IV was Patient instructed to contact office or after hours Hematology/Oncology fellow for: temperature ? 100.4; questions or concerns. Patient verbalized understanding of when to seek medical attention and after hours number protocol. Little Bowens RN [facility] ANTI-CANCER AGENTS FOLLOW-UP PHONE CALL/VISIT Patient identified by name and date of . YES Patient is on cycle 1, week 1, day 7 of Capecitabine (Xeloda) for Colon / Rectal Cancer. SYMPTOM ASSESSMENT Headache: Yes off and on. Woke up this morning with one. Visual Changes: No Dizziness: No Do you have any periods of confusion? No Mood changes: No Mouth or throat pain: No Appetite: pt states she has no desire to eat. Is on ozempic and feels this may be contributing as well. Taste changes: No Nausea: Yes mild, off and on. Resolves on it's own. Pt doesn't have antiemetics in the home. Statesshe pitched them after radiation because she thought she was done with treatment and wouldn't need them anymore. Vomiting: No Heartburn: No. Weight gain/loss: No Episodes of palpitations/chest discomfort/pressure/pain No Shortness of breath: No Cough: No Diarrhea: yes, once a couple of days ago. Took pepto bismol with relief. Constipation: yes, last BM yesterday. Had constipation a couple of days after treatment, resolved now. Bladder/Urinary Changes: None Pain: No=0 (pain 0 on a scale of 0-10). Fever: No Chills: No Cold sensitivity: Yes pt states she forgot and drank ice water when she got home from treatment andher throat hurt for a couple of days. This has resolved. Numbness/weakness: No Edema: No Skin changes: No Denies HFS Itching: No Yellowing of skin or eyes: No Musculoskeletal/joint changes/issues No Bleeding issues: No Activity Level (0-100%): pt states she's always tired. Do you need to take naps? Sometimes. Doesn't sleep well at night with too much on her mind Does the patient need interventions or same day appointment:No ADDITIONAL FOLLOW UP: The next outreach call is due on: as needed and was scheduled as needed The following lab tests are due: CBC, CMP, CEA Verified patient is aware of next appointment in the cancer center: Yes. Verified patient verbalized how to correctly refill the oral agent prescription. Yes Does the patient have any financial difficulties affording this medication? No and fills medicationfor free through [facility] pharmacy Patient verbalizes understanding of when to seek Medical Attention? YES Patient verbalizes understanding of after-hours and weekend phone number? YES Patient verbalized importance of medication compliance in taking the oral agent as prescribed. Patient instructed to call if unable to comply. Little Bowens RN [facility] Work Phone: [phone] Miscellaneous Notes* Telephone Encounter - Little Bowens RN - 02/06/2024 9:49 AM EDT CYCLE 1/DAY 1 POST TREATMENT CALL Today's date: February 06, 2024 Treatment Regimen: Oxaliplatin with Xeloda C1D1 Date: 01/31/24 Called patient to follow-up on symptom management. Spoke with patient SYMPTOM ASSESSMENT Neuro: Headache Yes off and on. Woke up this morning with one., Cold sensitivity Yes pt states she forgot and drank ice water when she got home from treatment and her throat hurt for a couple of days. This has resolved. 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 Is on ozempic and feels this may be contributing as well. , Nausea Yes mild, off and on. Resolves on it's own. Pt doesn't have antiemetics in the home. States she pitched them after radiation because she thought she was done with treatment and wouldn't need them anymore. , Fluid intake: fair, Diarrhea: yes, once a couple of days ago. Took pepto bismolwith relief. , Constipation: yes, last BM yesterday. Had constipation a couple of days after treatment, resolved now., and Bladder/Urinary Changes: None Integument: No Denies HFS Activity: pt states she's always tired. Pain: No=0 (pain 0 on a scale of 0-10). Fever: No Chills: No Any new referrals needed? No Reinforced CURRENT treatment education based on current and anticipated symptoms. Discussed port/line care and patient verbalizes understanding: Yes states she has neuropathy reallybad on her left hand where her IV was Patient instructed to contact office or after hours Hematology/Oncology fellow for: temperature ? 100.4; questions or concerns. Patient verbalized understanding of when to seek medical attention and after hours number protocol. Little Bowens RN ORAL ANTI-CANCER AGENTS FOLLOW-UP PHONE CALL/VISIT Patient identified by name and date of . YES Patient is on cycle 1, week 1, day 7 of Capecitabine (Xeloda) for Colon / Rectal Cancer. SYMPTOM ASSESSMENT Headache: Yes off and on. Woke up this morning with one. Visual Changes: No Dizziness: No Do you have any periods of confusion? No Mood changes: No Mouth or throat pain: No Appetite: pt states she has no desire to eat. Is on ozempic and feels this may be contributing as well. Taste changes: No Nausea: Yes mild, off and on. Resolves on it's own. Pt doesn't have antiemetics in the home. Statesfermín pitched them after radiation because she thought she was done with treatment and wouldn't need them anymore. Vomiting: No Heartburn: No. Weight gain/loss: No Episodes of palpitations/chest discomfort/pressure/pain No Shortness of breath: No Cough: No Diarrhea: yes, once a couple of days ago. Took pepto bismol with relief. Constipation: yes, last BM yesterday. Had constipation a couple of days after treatment, resolved now. Bladder/Urinary Changes: None Pain: No=0 (pain 0 on a scale of 0-10). Fever: No Chills: No Cold sensitivity: Yes pt states she forgot and drank ice water when she got home from treatment andher throat hurt for a couple of days. This has resolved. Numbness/weakness: No Edema: No Skin changes: No Denies HFS Itching: No Yellowing of skin or eyes: No Musculoskeletal/joint changes/issues No Bleeding issues: No Activity Level (0-100%): pt states she's always tired. Do you need to take naps? Sometimes. Doesn't sleep well at night with too much on her mind Does the patient need interventions or same day appointment:No ADDITIONAL FOLLOW UP: The next outreach call is due on: as needed and was scheduled as needed The following lab tests are due: CBC, CMP, CEA Verified patient is aware of next appointment in the cancer center: Yes. Verified patient verbalized how to correctly refill the oral agent prescription. Yes Does the patient have any financial difficulties affording this medication? No and fills medicationfor free through [facility] pharmacy Patient verbalizes understanding of when to seek Medical Attention? YES Patient verbalizes understanding of after-hours and weekend phone number? YES Patient verbalized importance of medication compliance in taking the oral agent as prescribed. Patient instructed to call if unable to comply. Little Bowens RN * Telephone Encounter - Little Bowens RN - 02/04/2024 2:53 PM EDT CYCLE 1/DAY 1 POST TREATMENT CALL Today's date: February 04, 2024 Treatment Regimen: Oxaliplatin with capecitabine C1D1 Date: 01/31/24 Called patient and message left requesting pt to call our office back. Little Bowens RN ORAL ANTI-CANCER AGENTS FOLLOW-UP PHONE CALL/VISIT Patient called and message left requesting a call back. Little Bowens RN documented in this encounterAd[facility]24 Telephone encounter Note * Telephone Encounter - AdrimarielenaAnna - 02/05/2024 1:33 PM EDT Patient called me back. She is going to call Dr. Kern's office back and arrange.. she's unsure if she can make that appointment for . Anna Clay [facility]09-17-2024 Miscellaneous Notes* Telephone Encounter - Anna Clay - 02/05/2024 1:33 PM EDT Patient called me back. She is going to call Dr. Kern's office back and arrange.. she's unsure if she can make that appointment for . Anna Clay * Telephone Encounter - Anna Clay - 02/05/2024 1:05 PM EDT Call placed to patient again, no answer. I will attempt again tomorrow to get a hold of patient. Ifnot, we will have to cancel this appointment until patient is able to arrange for an appointment. Patient will also need a bull driver so we have to make sure she will have a bull driver to be able to take herto this appointment. Anna Clay * Telephone Encounter - Anna Clay - 02/05/2024 9:38 AM EDT Call placed to patient this morning, unable to reach patient - got her voicemail and left a message. Anna Clay * Telephone Encounter - Anna Clay - 02/04/2024 4:31 PM EDT Received VM from Avril Ba's office letting us know that she has been scheduled for her port on , 02/06 @ 8 am. She will need to be at the hospital at 6 am. She is not to take her insulin that morning and will need to be fasting after midnight, she will also need a bull driver. Per Avril, she tried calling patient but can't get a hold of her. I will attempt to keep trying myself and get a hold of patient. Anna Clay * [facility] 02/04/2024 10:34 AM EDT Records faxed to [facility]. * Telephone Encounter - Lory Dominguez - 02/04/2024 9:54 AM EDT Majo: Information ready for you. Lory Casas * Telephone Encounter - Blu Tellez MD - 02/01/2024 5:43 PM EDT signed * Telephone Encounter - Jeniffer Hunter RN - 02/01/2024 3:36 PM EDT Patient had c/o hand cramps and stiffness after Oxali infusion yesterday. Discussed with Dr Tellez who had requested a call back to patient today for an update. Spoke with Parvez this afternoon who has c/o continued cramps, a bit better than yesterday, she also notes that she does not want anymore treatment through a peripheral IV and would like referral for a port. Discussed with Dr Tellez who agrees. Vascular Referral pended for review and approval Will forward to CC, patient is aware that we will contact her next week as today is Sunday. She lives in [place] Jeniffer Hunter RN documented in this encounterAdams County [facility] Center09-17-2024 Telephone encounter Note * Telephone Encounter - Anna Clay - 02/05/2024 1:05 PM EDT Call placed to patient again, no answer. I will attempt again tomorrow to get a hold of patient. Ifnot, we will have to cancel this appointment until patient is able to arrange for an appointment. Patient will also need a bull driver so we have to make sure she will have a bull driver to be able to take herto this appointment. Anna Clay [facility]09[facility] Telephone encounter Note* Telephone Encounter - Anna Clay - 02/05/2024 9:38 AM EDT Call placed to patient this morning, unable to reach patient - got her voicemail and left a message. Anna Clay [facility]09-16-[facility] Telephone encounter Note* Telephone Encounter - Anna Clay - 02/04/2024 4:31 PM EDT Received VM from Avril Ba's office letting us know that she has been scheduled for her port on , 02/06 @ 8 am. She will need to be at the hospital at 6 am. She is not to take her insulin that morning and will need to be fasting after midnight, she will also need a bull driver. Per Avril, she tried calling patient but can't get a hold of her. I will attempt to keep trying myself and get a hold of patient. Anna Clay [facility]09-16-20[facility] Telephone encounter Note* Telephone Encounter - Pauline Fatima LSW - 02/04/2024 3:06 PM EDT SOCIAL WORK FOLLOW UP NOTE: [facility] Date of service:02/04/24 PLAN: Continue follow up as needed F/U APPOINTMENT: PRN Assigned SW listed in Care Team tab: Yes [facility] called this SW back today. They do not have any counselors in the [place] location that are accepting new clients, but [facility] has openings. [facility] suggested that the Patient could call [facility] [phone] ([place], [place]) to see if they have any counselors accepting new clients. SW called Patient and left her a VM regarding the above. VICENTE Nash [facility]09-16-2024 Miscellaneous Notes* Telephone Encounter - Pauline Fatima LSW - 02/04/2024 3:06 PM EDT SOCIAL WORK FOLLOW UP NOTE: [facility] Date of service:02/04/24 PLAN: Continue follow up as needed F/U APPOINTMENT: PRN Assigned SW listed in Care Team tab: Yes [facility] called this SW back today. They do not have any counselors in the [place] location that are accepting new clients, but [facility] has openings. [facility] suggested that the Patient could call [facility] [phone] ([place], [place]) to see if they have any counselors accepting new clients. SW called Patient and left her a VM regarding the above. VICENTE Nash documented in this encounterAdams County [facility] Center09-16-2024 Telephone encounter Note * Telephone Encounter - Little Bowens RN - 02/04/2024 2:53 PM EDT CYCLE 1/DAY 1 POST TREATMENT CALL Today's date: February 04, 2024 Treatment Regimen: Oxaliplatin with capecitabine C1D1 Date: 01/31/24 Called patient and message left requesting pt to call our office back. Little Bowens RN ORAL ANTI-CANCER AGENTS FOLLOW-UP PHONE CALL/VISIT Patient called and message left requesting a call back. Little Bowens RN [facility]09-16-20[facility] Telephone encounter Note* Telephone Encounter - Zabrina Murguia - 02/04/2024 10:34 AM EDT [facility]09-[facility] Telephone encounter Note* Telephone Encounter - Lory Dominguez - 02/04/2024 9:54 AM EDT Majo: Information ready for you. Lory Elder Pss [facility]09-13-2024 Telephone encounter Note* Telephone Encounter - Blu Tellez MD - 02/01/2024 5:43 PM EDT signed [facility]09-[facility]-20[facility] Telephone encounter Note* Telephone Encounter - Jeniffer Hunter RN - 02/01/2024 3:36 PM EDT Patient had c/o hand cramps and stiffness after Oxali infusion yesterday. Discussed with Dr Tellez who had requested a call back to patient today for an update. Spoke with Parvez this afternoon who has c/o continued cramps, a bit better than yesterday, she also notes that she does not want anymore treatment through a peripheral IV and would like referral for a port. Discussed with Dr Tellez who agrees. Vascular Referral pended for review and approval Will forward to RNCC, patient is aware that we will contact her next week as today is Sunday. She lives in [place] Jeniffer Hunter RN [facility]09-12-2024 [facility]-12-2024 History of Present illness Narrative* Pauline Fatima LSW - 01/31/2024 4:01 PM EDT Social Work Problem Referral Note INFORMATION/REFERRAL : Parvez Riggins 68 year old female was referred by AKANKSHA Jiménez to [facility] for the following reason(s): Additional Support and referral to community basedmental health services. PERSONS INTERVIEWED: patient INTERVENTION: Information & Referral Service Co-ordination IDENTIFIED PROBLEMS/NEEDS: Patient adjustment to illness Emotional/behavioral/cognitive Family issues Intervention/Referral to be provided:SW will contact [facility] in [place] regarding mental health services. Patient reports that she once saw a counselor at [facility], but cannot recall her name. IMPRESSION/PLAN:Patient reportedly was tearful earlier today. Patient shared with staff that that she has concerns about her relationship with her daughter. Patient was asking for help connecting with mental health resources. SW met with Patient in the infusion room. Patient verified the above. Patient asked this SW to call [facility] and help facilitate a referral for counseling services. SW will do so. SW provided active listening, validation to the feelings expressed and psychosocial support. SW will remain available and will follow up as appropriate. Assigned SW listed in Care Team tab: Yes VICENTE Nash documented in this encounterAdams County [facility] Center09-12-2024 NoteTr[facility]09-12-2024 History of Present illness Narrative* Little Bowens RN - 01/31/2024 3:06 PM EDT ONCOLOGY PATIENT EDUCATION NOTE TOPIC: Chemotherapy, Medications: oxaliplatin with xeloda patient here today for education for treatment of Colon / Rectal Cancer Anticipated/Scheduled start date: today READINESS TO LEARN: COGNITIVE ABILITY: Alert and oriented MOTIVATION TO LEARN: Interested FAMILY SUPPORT: Unable to assess - Family not present INSTRUCTION PROVIDED TO: Patient INSTRUCTION PROVIDED BY: Nurse Coordinator PATIENT LEARNS BEST BY: Multiple Methods FACTORS AFFECTING LEARNING: Emotional Factors: Anxious Fearful Overwhelmed Upset/tearful PHYSICAL LIMITATIONS AFFECTING LEARNING: None LEARNING RESPONSE METHOD OF INSTRUCTION: Written instruction/Handouts PATIENT/FAMILY RESPONSE: Information received as demonstrated by interest and questions FOLLOW UP PLAN: Patient instructed to call with any further issues Re-teach - Using different method Reinforce - Repeat previous content Follow up phone call. Contact information given. SUPPLEMENTAL MATERIAL: Written material was provided at this visit with the following information: - Chemotherapy education was provided by a pharmacist NO - Side effect management information was provided/discussed including but not limited to: abdominaldiscomfort, anemia, appetite changes, arthralgia, bowel habit changes, cardiac toxicity, chest pain, cold sensitivity, diet, electrolyte disturbances, fatigue, hair loss, hand-foot syndrome, headache, hypersensitivity reaction, infection, myalgia, nausea/vomitting, neutropenia, peripheral neuropathy, rash, risk for DVT, shortness of breath, skin changes, taste changes, thrombocytopenia YES - Provided important phone numbers and contacts during and after hours. YES - Provided information on symptoms that require immediate assistance. YES - Provided Chemotherapy when to call handouts YES - Preventing infection. YES - Treatment schedule and confirmation of appointment times. YES - Available support groups. YES - The importance of contraception during the course of chemotherapy NA - Neutropenic fever protocol discussed with patient, which included the importance of reporting anyfever of 100.4F (38.0C) or greater to the healthcare team as noted on the provided wallet card and/or magnet. YES Time Spent: 40 minutes REFERRAL (RECOMMENDATION): social insurance analyst met with patient as well Little Bowens RN documented in this encounterAdams County [facility] Center09-12-2024 Instructions* Patient Instructions* Ivory Van - 01/31/2024 1:51 PM EDT Start CAPOX Cycle1 Day1 today Dose reduced oxaliplatin to 100mg/m2 Pauline Fatima to meet with patient for emotional support and arrange for additional services RTC in 2 weeks for C2 D1 CAPOX Labs same day documented in this encounterAdams County [facility] Center09-12-2024 History of Present illness Narrative* Blu Tellez MD - 01/31/2024 1:15 PM EDT Images from the original note were not included. NAME: Parvez Riggins [facility] NO.: [id number] DATE OF SERVICE: January 31, 2024 (Devin) Some elements in this clinic note that are critical to medical decision making have been carefully reviewed and included from a prior clinic note dated: January 15, 2024 (Devin) Referring Provider: Arturo Mcdonald MD Additional Clinicians involved in Parvez Riggins's care: DIAGNOSIS: Rectal Cancer- MRI Staged T3a,N+,M0- RHYS ASSESSMENT: 68 year old female here for follow up. Rectal cancer-started planned YANIV. Started radiation and xeloda on October 16, 2023. She is doing well.She does have fatigue but otherwise no major side effects. She will complete xeloda and xrt on 11/23/2023. I have arranged for a repeat MRI rectum and a follow up with [facility]. She has decided she would like to maintain her care in [place] and I will offer her a follow up with a new oncologist in 2-3 weeks to plan her YANIV therapy. She does not have a port and wishes to proceed without one. Proceed with CAPOX. 5 mm left-sided nodular opacity on initial staging CT--will repeat CT chest before her return Post dental extraction DM2--not well controlled. She will follow up with her PCP for this PLAN: Start CAPOX Cycle1 Day1 today Dose reduced oxaliplatin to 100mg/m2 Pauline Fatima to meet with patient for emotional support and arrange for additional services RTC in 2 weeks for C2 D1 CAPOX Labs same day HPI: CASE HISTORY: Reverse Chronological Order 01/31/2024 - Start CAPOX C1 D1 01/10/2024 - MRI Rectum: Since 09/04/23, post treatment primary tumor assessment: Incomplete response (likely residual tumor). Previously noted polypoid masslike rectal neoplasm hasdecreased with residual wall thickening. Interval resolution of previously noted mesorectal lymph nodes. mrTRG: Grade 3 - Moderate response Suspicious Mesorectal lymph nodes: No. Suspicious Extramesorectal lymph nodes: No. 11/23/2023 - CT Chest: No metastatic disease in the chest. 10/28/2023 - CT A/P: Moderate amount of stool in the colon with a large amount of stool in the colorectal junction. There is been interval decreased size of the distal rectal mass however there is luminal narrowing whichcould represent a component of stricture formation however there is no significant proximal colonicdilatation. Consider nonemergent fluoroscopic barium enema for further assessment. 10/16/2023-11/23/2023 - Xeloda and XRT, planned YANIV 08/2023 - MRI Rectum: MID RECTAL SEMIANNULAR MASS. Stage: T3a N+ MRF: Clear (tumor margin >2 mm from MRF), however a metastatic mesorectal lymph node abuts the MRF Sphincter involvement: No. Suspicious extra mesorectal lymph nodes: No. EMVI: No. 07/16/2023 - CT CAP: Chest: Left-sided nodular opacities measuring up to 5 mm. Metastatic disease is not excluded. Recommend continued attention to these areas on follow-up exams. No evidence of intrathoracic lymphadenopathy. A/P: Large rectal mass with numerous enlarged perirectal nodes, suspicious for ami metastatic disease. No additional findings to suggest distant abdominal or pelvic metastatic disease. Linear bandlike hypodensity within the spleen, suggestive of a splenic infarct. 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 06/2023 - Colonoscopy: Rectal mass, procedure not specified: - 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 Anal verge, procedure not specified: - Inflammatory cloacogenic polyp, ulcerated, negative for dysplasia or carcinoma. Updated Visit, January 31, 2024: Parvez returns today to start CAPOX. She admits she is nervous to start treatment and that she wouldnot like surgery in the future. We discussed her mental health and her familial relationships. I recommended she follow up with our social insurance analyst as she can also assist with transportation needs. Sheis very involved with her anabaptist and may reach out to them for emotional support. I also advised her to reconsider surgical intervention as this disease is curable. Initial Visit, January 15, 2024: Transition of Care Parvez Riggins presents today to transition her care as her previous provider left the practice. MRI of the rectum shows incomplete response - she is in agreement to continue treatment with CAPOX. We discussed potential AEs, including cold- induced neuropathy. 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 November 21, 2023: Parvez returns for follow up. Overall she is doing well with her treatments. She denies diarrhea, however she does sometimes lose bowels when she doesn't expect it. Denies any mucositis or HFS. She is scheduled to finish radiation on 11/23/2023. REVIEW OF SYSTEMS Per HPI and otherwise negative by full review of organ systems. ECOG PERFORMANCE STATUS: PHYSICAL EXAMINATION: Vitals: BP 139/81 Pulse 94 Temp (Src) 97.7 (Temporal) Resp 16 Ht 5' 7.008 (1.70m) Wt 195lb 12.3 oz (88.8kg) SpO2 98% BMI 30.65 kg/(m^2). Body surface area is 2.05 meters squared. Exam limited to gross visualization where appropriate. Gen.: This is an age-appropriate patient in no acute distress. Head: Appears atraumatic with no visible lesions. Eyes: Pupils equally round and reactive to light, extraocular muscles are intact. Neck: Supple. Respiratory: Appears to be respiring comfortably. Neurologic: Nonfocal to gross visualization. Alert and oriented 3. Psychiatric: No evidence of inappropriate anxiety or depression. Skin: Visible areas of skin without rash, lesions, wounds or petechiae. ALLERGIES: ALLERGIES Allergen Reactions Codeine Other: See Comments Nausea Tramadol Vomiting MEDICATIONS: capecitabine (XELODA) 500 mg tablet Take 5 tablets (2,500 mg) by mouth two times a day for 14 days followed by 7 days off. polyethylene glycol 3350 17 gram packet Take 17 g by mouth. semaglutide (OZEMPIC) 1 mg/dose (2 mg/1.5 mL) pen Inject 1 mg subcutaneously one time a week. atorvastatin (LIPITOR) 40 mg tablet Take 40 mg by mouth daily at bedtime. clobetasol (TEMOVATE) 0.05 % cream Apply 1 Application to affected area two times a day. metoprolol tartrate, short acting, (LOPRESSOR) 50 mg tablet Take 50 mg by mouth two times a day. Mirtazapine (REMERON) 7.5 mg tablet Take 7.5 mg by mouth once daily. JANUMET XR 50-1,000 mg TM24 Take 1 tablet by mouth every afternoon. spironolactone (ALDACTONE) 25 mg tablet Take 50 mg by mouth every morning. cannabidiol, CBD, (CANNABIDIOL ORAL) Take 10 mg by mouth daily at bedtime. prochlorperazine (COMPAZINE) 10 mg tablet Take 1 tablet by mouth every 6 hours as needed. ondansetron (ZOFRAN) 8 mg tablet Take 1 tablet by mouth every 8 hours as needed for nausea/vomiting. aspirin, enteric coated (ASPIRIN, ENTERIC COATED) 81 mg EC tablet Take 81 mg by mouth every other day. busPIRone (BUSPAR) 10 mg tablet Take by mouth. ferrous sulfate 325 mg (65 mg iron) tablet Take 325 mg by mouth every 48 hours. meclizine (ANTIVERT) 25 mg tab Take by mouth at bedtime as needed. nystatin (MYCOSTATIN) ointment Apply 1 Application to affected area. insulin glargine (LANTUS SOLOSTAR U-100 INSULIN) 100 unit/mL (3 mL) Inject 80 Units subcutaneously daily at bedtime. irbesartan (AVAPRO) 75 mg tablet Take 75 mg by mouth daily at bedtime. insulin lispro (HUMALOG KWIKPEN INSULIN) 100 unit/mL inpn Inject subcutaneously as directed. amLODIPine (NORVASC) 10 mg tablet Take 10 mg by mouth once daily. Acetaminophen 500 mg cap Take 500 mg by mouth as needed. LABORATORY VALUES: WBC (k/uL) Date Value 01/31/2024 5.04 RBC (m/uL) Date Value 01/31/2024 4.56 Hemoglobin (g/dL) Date Value 01/31/2024 12.9 Hematocrit (%) Date Value 01/31/2024 37.0 MCV (fL) Date Value 01/31/2024 81.1 MCH (pg) Date Value 01/31/2024 28.3 MCHC (g/dL) Date Value 01/31/2024 34.9 RDW-CV (%) Date Value 01/31/2024 12.3 Platelet Count (k/uL) Date Value 01/31/2024 267 MPV (fL) Date Value 01/31/2024 8.8 (L) Glucose (mg/dL) Date Value 01/31/2024 326 (H) BUN (mg/dL) Date Value 01/31/2024 16 Creatinine (mg/dL) Date Value 01/31/2024 1.16 (H) Sodium (mmol/L) Date Value 01/31/2024 139 Potassium (mmol/L) Date Value 01/31/2024 3.9 Chloride (mmol/L) Date Value 01/31/2024 100 CO2 (mmol/L) Date Value 01/31/2024 27 Protein, Total (g/dL) Date Value 01/31/2024 7.3 Albumin (g/dL) Date Value 01/31/2024 4.1 Calcium, Total (mg/dL) Date Value 01/31/2024 9.6 Alkaline Phosphatase (U/L) Date Value 01/31/2024 108 Bilirubin, Total (mg/dL) Date Value 01/31/2024 0.9 AST (U/L) Date Value 01/31/2024 9 (L) ALT (U/L) Date Value 01/31/2024 10 DIAGNOSIS: (C20) Rectal cancer (HCC) (primary encounter diagnosis) (C20) Malignant neoplasm of rectum (HCC) (E11.69, Z79.4) Type 2 diabetes mellitus with other specified complication, with long-term current use of insulin (HCC) (N18.31) Stage 3a chronic kidney disease (HCC) PAST MEDICAL HISTORY Diagnosis Date Anxiety Carcinoma of vulva (HCC) Chronic back pain COVID-19 Depression Diabetes (HCC) GERD (gastroesophageal reflux disease) HPV in female Hypertension Ovarian cyst Panic disorder PONV (postoperative nausea and vomiting) Rectal bleeding Rectal cancer (HCC) Rectal mass Sleep apnea Vulval lesion PAST SURGICAL HISTORY Procedure Laterality Date ARTHROSCOPY KNEE DIAGNOSTIC W/WO SYNOVIAL BX SPX Left x2 ARTHRP KNE CONDYLE&PLATU MEDIAL&LAT COMPARTMENTS Left BACK SURGERY HX CHOLECYSTECTOMY HX COLONOSCOPY EGD W/O BRSH SPEC VARICIES INJ LIGATE FALLOPIAN TUBE NASAL ENDOS,DIAG,UNI/ BILATERAL PAST SURGICAL HISTORY OF Dissection of lymph node inguinal femoral PAST SURGICAL HISTORY OF Revision of Episiotomy PAST SURGICAL HISTORY OF 2019 Right Hemivulvectomy/Bilateral inguinal sentinal lymp node dissection TOTAL KNEE REPLACEMENT Left TUBAL LIGATION Social History Tobacco Use Smoking status: Former Types: Cigarettes Passive exposure: Past Smokeless tobacco: Never Substance Use Topics Alcohol use: Yes Comment: occasional Drug use: Never FAMILY HISTORY Problem Relation Age of Onset Diabetes Mother Stroke Mother Hypertension Father Uterine Cancer Maternal Grandmother Diabetes Maternal Grandfather Heart Attack Maternal Grandfather Dementia Paternal Grandmother Heart Attack Paternal Grandfather I spent a total of 40 minutes on the date of the service which included preparing to see the patient, [id number] patient care, completing clinical documentation, obtaining and/or reviewing separately obtained history, performing a medically appropriate examination, counseling and educating the pat ient/family/caregiver, ordering medications, tests, or procedures, communicating with other HCPs (not separately reported), independently interpreting results (not separately reported), communicatingresults to the patient/family/caregiver, and care coordination (not separately reported). Blu Tellez MD, CPE Hematology and Oncology Services Provided at: [place], [place] Scribe Attestation: This note was scribed by Ivory Van on January 31, 2024 under the direction and supervision of Dr. Blu Tellez. I attest that all of the information documented is correct to the best of my knowledge. Provider Attestation: I, Blu Tellez MD, attest that all information documented by the above scribe is correct, and was supervised by me and under my direction. CC: Keaton Hu, DO [address] [facility] [id number] documented in this encounterAdams County Regional Medical Center09-12-2024 NoteTr[facility]ull [facility]09-11-2024 Telephone encounter Note* Telephone Encounter - Little Bowens RN - 01/30/2024 3:04 PM EDT Pt will be starting capox tomorrow. Pharmacy needs a script for Xeloda please Thanks Little Bowens RN [facility] Work Phone: [phone] Miscellaneous Notes* Telephone Encounter - Little Bowens RN - 01/30/2024 3:04 PM EDT Pt will be starting capox tomorrow. Pharmacy needs a script for Xeloda please Thanks Little Bowens RN documented in this encounterAdams County Regional [facility] Center09-11-2024 NoteTr[facility]ull [facility]09-11-2024 History of Present illness Narrative* Little Bowens RN - 01/30/2024 2:31 PM EDT ONCOLOGY PATIENT EDUCATION NOTE Telephone education TOPIC: Chemotherapy, Medications: oxaliplatin patient called today for education for treatment of Colon / Rectal Cancer Anticipated/Scheduled start date: 01/31/24 READINESS TO LEARN: COGNITIVE ABILITY: Alert and oriented MOTIVATION TO LEARN: Interested FAMILY SUPPORT: Unable to assess - Family not present INSTRUCTION PROVIDED TO: Patient INSTRUCTION PROVIDED BY: Nurse Coordinator PATIENT LEARNS BEST BY: Multiple Methods FACTORS AFFECTING LEARNING: Emotional Factors: Anxious Fearful Overwhelmed Financial Factors: pt states it's difficult for her to make it to appointments at times due to being able to afford gas and car troubles in the past. PHYSICAL LIMITATIONS AFFECTING LEARNING: Fatigue LEARNING RESPONSE METHOD OF INSTRUCTION: Individual instruction Written instruction/Handouts Verbal instruction PATIENT/FAMILY RESPONSE: Verbalizes understanding of: CHEMOTHERAPY-Regimen, toxicity and side effects INFECTION MANAGEMENT-Signs and symptoms of an infection and importance of contacting the physician MEDICAL REGIMEN-Importance of following prescribed medical regimen MEDICATION DOSE MISSED-Correct action to take if medication dose is missed MEDICATION PRESCRIBED-Accurate knowledge of prescribed medication prior to discharge MEDICATION ROUTE-Correct route for administration of the prescribed medication MEDICATION SIDE EFFECTS-Side effects associated with the medication that warrant a call to the physician PATIENT SAFETY PRINCIPLES SYMPTOM MANAGEMENT-Correct actions to take to manage symptoms associated with his/her disease/illness WORSENING CONDITION-Signs and symptoms of a worsening condition that warrant a call to the physician Information received as demonstrated by interest and questions FOLLOW UP PLAN: Patient instructed to call with any further issues Recommend - Recommend continued instruction and follow up as directed Follow up phone call. Contact information given. Will give patient written education material when she is here tomorrow. SUPPLEMENTAL MATERIAL: Written material was provided at this visit with the following information: - Chemotherapy education was provided by a pharmacist NO - Side effect management information was provided/discussed including but not limited to: abdominaldiscomfort, anemia, appetite changes, arthralgia, bowel habit changes, chest pain, cold sensitivity, diet, electrolyte disturbances, fatigue, hand-foot syndrome, headache, hypersensitivity reaction, infection, mucositis, myalgia, nausea/vomitting, neutropenia, peripheral neuropathy, rash, risk for DVT, shortness of breath, skin changes, taste changes, thrombocytopenia YES - Provided important phone numbers and contacts during and after hours. YES - Provided information on symptoms that require immediate assistance. YES - Provided Chemotherapy when to call handouts YES - Preventing infection. YES - Treatment schedule and confirmation of appointment times. YES - Available support groups. NA - The importance of contraception during the course of chemotherapy NA - Neutropenic fever protocol discussed with patient, which included the importance of reporting anyfever of 100.4F (38.0C) or greater to the healthcare team as noted on the provided wallet card and/or magnet. YES - 4th Jamie Information. YES - Patient services information. YES - Patient has my journey binder as well as antiemetics in the home from previous treatment Time Spent: 30 minutes REFERRAL (RECOMMENDATION): call placed to social insurance analyst and she is aware that pt will be here tomorrow for treatment Little Bowens RN ORAL ANTI-CANCER AGENTS EDUCATION patient called today for oral medication education of Xeloda for Colon / Rectal Cancer Anticipated/Scheduled start date: tomorrow, 01/31/24 READINESS TO LEARN Cognitive Ability: Alert and oriented Motivation to Learn: Interested Family Support: Unable to assess - Family not present Instruction Provided to: Patient Patient learns best by: Multiple Methods Factors affecting learning: Emotional Factors: Anxious Fearful Overwhelmed Financial Factors: pt has needed help with transportation for past treatments and is established with our social insurance analyst Physical limitation affecting learning: Fatigue GONZÁLES ASSESSMENT: 1.) Verified that patient knows that the oral agents are for cancer and are taken by mouth. Yes 2.) Medication review completed during visit. Yes will complete tomorrow when pt is here 3.) Patient is able to swallow pills. Yes 4.) Patient is able to read the drug label/information. Yes 5.) Patient is able to open the medication bottles and packages. Yes 6.) Has patient taken other pills for cancer? YES, please explain: Xeloda with radiation 7.) Is patient experiencing any symptoms that would affect their ability to keep down pills, for example nausea or vomiting? No 8.) Verified that patient understands prescription delivery, benefit investigation and refill process. Yes will fill through [facility] pharmacy DRUG-SPECIFIC EDUCATION: 1.) Verified patient knows the drug name. Yes 2.) Verified patient understands the dose and schedule of oral anti cancer agent. Yes 3.) Verified patient knows what to do if a medication dose is missed. Yes 4.) Verified patient understands where to store the drug. Yes 5.) Verified patient understands potential side effects and how to manage them. Yes 6.)Verified patient understands handling precautions of oral anti cancer agent. Yes 7.) Verified patient was given written instructions and understands when and whom to call with questions. Yes 8.) Verified patient understands where and how to return drug. Yes 9.) Verified patient received drug specific adult education handout and neutropenic wallet card Yes EVALUATE: The patient demonstrated an understanding of all the above education using the teach-back method. Yes Instructed to call us with any questions, concerns, and/or unresolved symptoms. Will continue to follow up and provide reinforcement of teaching topics as needed. Little Bowens RN documented [facility]Ad[facility] Telephone encounter Note * Telephone Encounter - Little Bowens RN - 01/30/2024 1:02 PM EDT Call placed to pt to do phone education or tomorrow's treatment. Message left requesting pt to callour office back. Little Bowens RN [facility] Work Phone: [phone]) 930-647609-11-2024 Miscellaneous Notes* Telephone Encounter - Little Bowens RN - 01/30/2024 1:02 PM EDT Call placed to pt to do phone education or tomorrow's treatment. Message left requesting pt to callour office back. Little Bowens RN documented in this encounterAd[facility]09-[facility]-2024 Telephone encounter Note * Telephone Encounter - Corine Linton MA - 01/28/2024 9:50 AM EDT Lab orders needed for appointment scheduled 01/30. Corine Linton MA [facility]09-09-20[facility] Miscellaneous Notes* Telephone Encounter - Corine Linton MA - 01/28/2024 9:50 AM EDT Lab orders needed for appointment scheduled 01/30. Corine Linton MA documented in this encounterAdams [facility]08-27-2024 Instructions* Patient Instructions* Ivory Van - 01/15/2024 4:42 PM EDT Start CAPOX in 2 weeks - 01/30/2024 Needs education and consent RTC on day of start, labs preceding documented in this encounterAd[facility]08-27-2024 History of Present illness Narrative* Blu Tellez MD - 01/15/2024 4:30 PM EDT Images from the original note were not included. NAME: Parvez Riggins CLINIC NO.: [id number] DATE OF SERVICE: January 15, 2024 (Devin) Some elements in this clinic note that are critical to medical decision making have been carefully reviewed and included from a prior clinic note dated: November 21, 2023 ([place]) Referring Provider: Arturo Mcdonald MD Additional Clinicians involved in Parvez Riggins's care: DIAGNOSIS: Rectal Cancer- MRI Staged T3a,N+,M0- RHYS ASSESSMENT: 68 year old female here for follow up. Rectal cancer-started planned YANIV. Started radiation and xeloda on October 16, 2023. She is doing well.She does have fatigue but otherwise no major side effects.She will complete xeloda and xrt on 11/23/2023. I have arranged for a repeat MRI rectum and a follow up with [facility]. She has decided she would like to maintain her care in [place] and I will offer her a follow up with a new oncologist in 2-3 weeks to plan her YANIV therapy. She does not have a port and wishes to proceed without one. We may needto proceed with CAPOX. 5 mm left-sided nodular opacity on initial staging CT--will repeat CT chest before her return Post dental extraction DM2--not well controlled. She will follow up with her PCP for this PLAN: Start CAPOX in 2 weeks - 01/30/2024 Needs education and consent RTC on day of start, labs preceding HPI: CASE HISTORY: Reverse Chronological Order 01/10/2024 - MRI Rectum: Since 09/04/23, post treatment primary tumor assessment: Incomplete response (likely residual tumor). Previously noted polypoid masslike rectal neoplasm hasdecreased with residual wall thickening. Interval resolution of previously noted mesorectal lymph nodes. mrTRG: Grade 3 - Moderate response Suspicious Mesorectal lymph nodes: No. Suspicious Extramesorectal lymph nodes: No. 11/23/2023 - CT Chest: No metastatic disease in the chest. 10/28/2023 - CT A/P: Moderate amount of stool in the colon with a large amount of stool in the colorectal junction. There is been interval decreased size of the distal rectal mass however there is luminal narrowing whichcould represent a component of stricture formation however there is no significant proximal colonicdilatation. Consider nonemergent fluoroscopic barium enema for further assessment. 10/16/2023-11/23/2023 - Xeloda and XRT, planned YANIV 08/2023 - MRI Rectum: MID RECTAL SEMIANNULAR MASS. Stage: T3a N+ MRF: Clear (tumor margin >2 mm from MRF), however a metastatic mesorectal lymph node abuts the MRF Sphincter involvement: No. Suspicious extra mesorectal lymph nodes: No. EMVI: No. 07/16/2023 - CT CAP: Chest: Left-sided nodular opacities measuring up to 5 mm. Metastatic disease is not excluded. Recommend continued attention to these areas on follow-up exams. No evidence of intrathoracic lymphadenopathy. A/P: Large rectal mass with numerous enlarged perirectal nodes, suspicious for ami metastatic disease. No additional findings to suggest distant abdominal or pelvic metastatic disease. Linear bandlike hypodensity within the spleen, suggestive of a splenic infarct. 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 06/2023 - Colonoscopy: Rectal mass, procedure not specified: - 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 2. Anal verge, procedure not specified: - Inflammatory cloacogenic polyp, ulcerated, negative for dysplasia or carcinoma. Initial Visit, January 15, 2024: Transition of Care Parvez Riggins presents today to transition her care as her previous provider left the practice. MRI of the rectum shows incomplete response - she is in agreement to continue treatment with CAPOX. We discussed potential AEs, including cold- induced neuropathy. 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 November 21, 2023: Parvez returns for follow up. Overall she is doing well with her treatments. She denies diarrhea, however she does sometimes lose bowels when she doesn't expect it. Denies any mucositis or HFS. She is scheduled to finish radiation on 11/23/2023. REVIEW OF SYSTEMS Per HPI and otherwise negative by full review of organ systems. ECOG PERFORMANCE STATUS: PHYSICAL EXAMINATION: Vitals: BP 107/67 Pulse 102 Temp (Src) 97.4 (Temporal) Resp 18 Wt 192 lb 0.3 oz (87.1kg) SpO2 97% Body surface area is 2.03 meters squared. Exam limited to gross visualization where appropriate. Gen.: This is an age-appropriate patient in no acute distress. Head: Appears atraumatic with no visible lesions. Eyes: Pupils equally round and reactive to light, extraocular muscles are intact. Neck: Supple. Respiratory: Appears to be respiring comfortably. Neurologic: Nonfocal to gross visualization. Alert and oriented 3. Psychiatric: No evidence of inappropriate anxiety or depression. Skin: Visible areas of skin without rash, lesions, wounds or petechiae. ALLERGIES: ALLERGIES Allergen Reactions Codeine Other: See Comments Nausea Tramadol Vomiting MEDICATIONS: polyethylene glycol 3350 17 gram packet Take 17 g by mouth. semaglutide (OZEMPIC) 1 mg/dose (2 mg/1.5 mL) pen Inject 1 mg subcutaneously one time a week. atorvastatin (LIPITOR) 40 mg tablet Take 40 mg by mouth daily at bedtime. clobetasol (TEMOVATE) 0.05 % cream Apply 1 Application to affected area two times a day. metoprolol tartrate, short acting, (LOPRESSOR) 50 mg tablet Take 50 mg by mouth two times a day. Mirtazapine (REMERON) 7.5 mg tablet Take 7.5 mg by mouth once daily. JANUMET XR 50-1,000 mg TM24 Take 1 tablet by mouth every afternoon. spironolactone (ALDACTONE) 25 mg tablet Take 50 mg by mouth every morning. cannabidiol, CBD, (CANNABIDIOL ORAL) Take 10 mg by mouth daily at bedtime. prochlorperazine (COMPAZINE) 10 mg tablet Take 1 tablet by mouth every 6 hours as needed. ondansetron (ZOFRAN) 8 mg tablet Take 1 tablet by mouth every 8 hours as needed for nausea/vomiting. capecitabine (XELODA) 500 mg tablet Take 3 tablets (1,500 mg) by mouth two times a day with food, on days of radiation only (MON-FRI only). aspirin, enteric coated (ASPIRIN, ENTERIC COATED) 81 mg EC tablet Take 81 mg by mouth every other day. busPIRone (BUSPAR) 10 mg tablet Take by mouth. ferrous sulfate 325 mg (65 mg iron) tablet Take 325 mg by mouth every 48 hours. meclizine (ANTIVERT) 25 mg tab Take by mouth at bedtime as needed. nystatin (MYCOSTATIN) ointment Apply 1 Application to affected area. insulin glargine (LANTUS SOLOSTAR U-100 INSULIN) 100 unit/mL (3 mL) Inject 80 Units subcutaneously daily at bedtime. irbesartan (AVAPRO) 75 mg tablet Take 75 mg by mouth daily at bedtime. insulin lispro (HUMALOG KWIKPEN INSULIN) 100 unit/mL inpn Inject subcutaneously as directed. amLODIPine (NORVASC) 10 mg tablet Take 10 mg by mouth once daily. Acetaminophen 500 mg cap Take 500 mg by mouth as needed. LABORATORY VALUES: WBC (k/uL) Date Value 11/21/2023 4.56 RBC (m/uL) Date Value 11/21/2023 4.06 Hemoglobin (g/dL) Date Value 11/21/2023 11.0 (L) Hematocrit (%) Date Value 11/21/2023 33.3 (L) MCV (fL) Date Value 11/21/2023 82.0 MCH (pg) Date Value 11/21/2023 27.1 MCHC (g/dL) Date Value 11/21/2023 33.0 RDW-CV (%) Date Value 11/21/2023 14.8 Platelet Count (k/uL) Date Value 11/21/2023 271 MPV (fL) Date Value 11/21/2023 8.5 (L) Glucose (mg/dL) Date Value 11/21/2023 238 (H) BUN (mg/dL) Date Value 11/21/2023 11 Creatinine (mg/dL) Date Value 11/21/2023 1.11 (H) Sodium (mmol/L) Date Value 11/21/2023 144 Potassium (mmol/L) Date Value 11/21/2023 3.6 (L) Chloride (mmol/L) Date Value 11/21/2023 108 (H) CO2 (mmol/L) Date Value 11/21/2023 25 Protein, Total (g/dL) Date Value 11/21/2023 7.1 Albumin (g/dL) Date Value 11/21/2023 4.0 Calcium, Total (mg/dL) Date Value 11/21/2023 10.8 (H) Alkaline Phosphatase (U/L) Date Value 11/21/2023 88 Bilirubin, Total (mg/dL) Date Value 11/21/2023 1.0 AST (U/L) Date Value 11/21/2023 11 (L) ALT (U/L) Date Value 11/21/2023 10 DIAGNOSIS: (C20) Malignant neoplasm of rectum (HCC) (primary encounter diagnosis) (C20) Rectal cancer (HCC) (R91.8) Lung nodules PAST MEDICAL HISTORY No date: Anxiety No date: Carcinoma of vulva (HCC) No date: Chronic back pain No date: COVID-19 No date: Depression No date: Diabetes (HCC) No date: GERD (gastroesophageal reflux disease) 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 No date: Hypertension No date: Ovarian cyst No date: Panic disorder No date: PONV (postoperative nausea and vomiting) No date: Rectal bleeding No date: Rectal cancer (HCC) No date: Rectal mass No date: Sleep apnea No date: Vulval lesion PAST SURGICAL HISTORY No date: ARTHROSCOPY KNEE DIAGNOSTIC W/WO SYNOVIAL BX SPX; Left Comment: x2 No date: ARTHRP KNE CONDYLE&PLATU MEDIAL&LAT COMPARTMENTS; Left No date: BACK SURGERY HX No date: CHOLECYSTECTOMY HX No date: COLONOSCOPY No date: EGD W/O BRSH SPEC VARICIES INJ No date: LIGATE FALLOPIAN TUBE No date: NASAL ENDOS,DIAG,UNI/ BILATERAL No date: PAST SURGICAL HISTORY OF Comment: Dissection of lymph node inguinal femoral No date: PAST SURGICAL HISTORY OF Comment: Revision of Episiotomy 2020: PAST SURGICAL HISTORY OF Comment: Right Hemivulvectomy/Bilateral inguinal sentinal lymp node dissection No date: TOTAL KNEE REPLACEMENT; Left No date: TUBAL LIGATION Social History Tobacco Use Smoking status: Former Types: Cigarettes Passive exposure: Past Smokeless tobacco: Never Substance Use Topics Alcohol use: Yes Comment: occasional Drug use: Never FAMILY HISTORY Problem Relation Age of Onset Diabetes Mother Stroke Mother Hypertension Father Uterine Cancer Maternal Grandmother Diabetes Maternal Grandfather Heart Attack Maternal Grandfather Dementia Paternal Grandmother Heart Attack Paternal Grandfather I spent a total of 30 minutes on the date of the service which included preparing to see the patient, [id number] patient care, completing clinical documentation, obtaining and/or reviewing separately obtained history, performing a medically appropriate examination, counseling and educating the pat ient/family/caregiver, ordering medications, tests, or procedures, independently interpreting results (not separately reported), communicating results to the patient/family/caregiver, and care coordination (not separately reported). Blu Tellez MD, CPE Hematology [facility] Oncology Services Provided at: [place], [place] Scribe Attestation: This note was scribed by Ivory Van on January 15, 2024 under the direction and supervision of Dr. Blu Tellez. I attest that all of the information documented is correct to the best of my knowledge. Provider Attestation: I, Blu Tellez MD, attest that all information documented by the above scribe is correct, and was supervised by me and under my direction. CC: Keaton Hu, DO [address] [facility] [id number] documented in this encounterAd[facility]08-27-2024 NoteTr[facility]ull [facility]08-26-2024 Telephone encounter Note* Telephone Encounter - Nargis Choi - 01/14/2024 2:22 PM EDT Spoke to patient & scheduled her with MAYANK on 01/15/2024 at 4:30 pm to discuss treatment options. Nargis Denis Jimbo [facility]08-26-2024 Miscellaneous Notes* Telephone Encounter - Nargis Choi - 01/14/2024 2:22 PM EDT Spoke to patient & scheduled her with MAYANK on 01/15/2024 at 4:30 pm to discuss treatment options. Nargis Denis Jimbo * Telephone Encounter - Sonia Koch RN - 01/14/2024 1:56 PM EDT Please schedule with Dr. TALLEY tomorrow 01/14 at 430pm. Urvashi Scott * Telephone Encounter - Nargis Choi - 01/14/2024 1:29 PM EDT Sonia: Can you find an opening on MAYANK schedule to discuss treatment options and so patient can start treatment?? Thanks. Nargis Yunior Jimbo * Telephone Encounter - Little Bowens RN - 01/14/2024 1:19 PM EDT Pt notified and is agreeable to doing treatment only, does not wish to do any surgery. PSS: please call pt and schedule follow up with Mayank as soon as he has an opening to discuss treatment options and start treatment. Thanks, Little Bowens RN * Telephone Encounter - Little Bowens RN - 01/14/2024 11:32 AM EDT Message left for pt to call our office back. Little Bowens RN * Telephone Encounter - Jessica Eubanks PA-C - 01/14/2024 9:38 AM EDT I sent a result note on this. Her results show partial response. She will need additional treatment. Likely chemo then surgery. She really should see Mayank soon for KELECHI and decide on future treatment. Jessica Eubanks PA-C * Telephone Encounter - Little Bowens RN - 01/14/2024 9:29 AM EDT Pt calls requesting MRI results. Preliminary results available, please advise. Pt no showed her transition of care appointment with Dr Talley, and cancelled her appointment with Dr Zurita. Please advise Little Bowens RN documented in this encounterAd[facility]08-26-2024 Telephone encounter Note * Telephone Encounter - Sonia Koch RN - 01/14/2024 1:56 PM EDT Please schedule with Dr. TALLEY tomorrow 01/14 at 430pm. Thanks Sonia [facility]08-26-2024 Telephone encounter Note* Telephone Encounter - Nargis Choi - 01/14/2024 1:29 PM EDT Sonia: Can you find an opening on MAYANK schedule to discuss treatment options and so patient can start treatment?? Thanks. Nargis Choi [facility]08-26-2024 Telephone encounter Note* Telephone Encounter - Little Bowens RN - 01/14/2024 1:19 PM EDT Pt notified and is agreeable to doing treatment only, does not wish to do any surgery. PSS: please call pt and schedule follow up with Mayank as soon as he has an opening to discuss treatment options and start treatment. Thanks, Little Bowens RN [facility] Work Phone: 1(796) 486-800008-26-2024 Telephone encounter Note* Telephone Encounter - Little Bowens RN - 01/14/2024 11:32 AM EDT Message left for pt to call our office back. Little Bowens RN [facility]08-26-2024 Telephone encounter Note* Telephone Encounter - Jessica Eubanks PA-C - 01/14/2024 9:38 AM EDT I sent a result note on this. Her results show partial response. She will need additional treatment. Likely chemo then surgery. She really should see Mayank soon for KELECHI and decide on future treatment. Jessica Eubanks PA-C [facility]08-26-2024 Telephone encounter Note* Telephone Encounter - Little Bowens RN - 01/14/2024 9:29 AM EDT Pt calls requesting MRI results. Preliminary results available, please advise. Pt no showed her transition of care appointment with Dr Talley, and cancelled her appointment with Dr Zurita. Please advise Little Bowens RN [facility]08-26-2024 Miscellaneous Notes* Telephone Encounter - Kassi Rosado CMA - 01/14/2024 8:53 AM EDT Your lab results for the diabetes is worse than previous. The A1c is up to 8.3% There is excess protein in your urine, and your cholesterol level is high again with the LDL 158 mg/dL We can correct this, but will need to make changes to your medications. Continue to take the Lantus 60 units every day. We are going to increase the Ozempic to 2 mg once a week. A new prescription will be sent. We are going to have you stop the potassium, and in its place have you start Finrenone 10 mg daily.This will help the potassium, and helps treat the excess protein in the urine. For the cholesterol, we need you to restart taking the Atorvastatin. I sent the needed prescriptions to [facility] Please contact me with any questions * Telephone Encounter - Kassi Rosado CMA - 01/14/2024 8:53 AM EDT Spoke with the patient and she said someone from here already called her on this. [facility] Telephone encounter Note* Telephone Encounter - Kassi Rosado CMA - 01/14/2024 8:53 AM EDT Your lab results for the diabetes is worse than previous. The A1c is up to 8.3% There is excess protein in your urine, and your cholesterol level is high again with the LDL 158 mg/dL We can correct this, but will need to make changes to your medications. Continue to take the Lantus 60 units every day. We are going to increase the Ozempic to 2 mg once a week. A new prescription will be sent. We are going to have you stop the potassium, and in its place have you start Finrenone 10 mg daily.This will help the potassium, and helps treat the excess protein in the urine. For the cholesterol, we need you to restart taking the Atorvastatin. I sent the needed prescriptions to [facility] Please contact me with any questions [facility]08-26-2024 Telephone encounter Note* Telephone Encounter - Kassi Rosado CMA - 01/14/2024 8:53 AM EDT Spoke with the patient and she said someone from here already called her on this. [facility]08-22-2024 History of Present illness Narrative* Korina Quijano RT(R) - 01/10/2024 2:00 PM EDT Radiology Service Progress Note DATE OF SERVICE: January 10, 2024 TIME: 2:53 PM PATIENT IDENTITY VERIFICATION COMPLETED USING TWO (2) STANDARD IDENTIFIERS: Name and Date of confirmed by patient verbally and Name and Date of confirmed by identification band. FALL SCREENING: Has the patient had 2 falls in the last year or 1 fall with injury or currently using an Ambulatory Assistive Device (Walker, Cane, Wheelchair, Crutches, etc.)? No PATIENT GENDER DATA: Female. status: : No status: NO. PATIENT RELEVANT IMPLANT DATA REVIEWED: Yes PATIENT PRESENTS WITH AN IMPLANTABLE OR ATTACHED RESEARCH TECHNICIAN: No ALLERGIES: Reviewed and unchanged CONTRAST ALLERGY: NO. EXAM: MRI - CONTRAST TYPE: GROUP II PERIPHERAL IV DATA: Ambulatory: A peripheral IV was started in the Right antecubital site with a Angio cath/Butterfly: 23 gauge. 60 cc sugilube injected into rectum RADIOLOGY DEPARTMENT: MR; Exam(s) Completed: Body: Rectal SIGNATURE: RT Aiden(Rubén) PATIENT NAME: Parvez Riggins DATE: January 10, 2024 TIME: 2:53 PM documented in this encounterAd[facility]08-22-2024 NoteHNO ID: [id number] Author: KORINA QUIJANO RT(R) Service: Radiology Author Type: Technologist Type: Progress Notes Filed: 01/10/2024 14:55 Note Text: Radiology Service Progress Note DATE OF SERVICE: January 10, 2024 TIME: 2:53 PM PATIENT IDENTITY VERIFICATION COMPLETED USING TWO (2) STANDARD IDENTIFIERS: Name and Date of confirmed by patient verbally and Name and Date of confirmed by identification band. FALL SCREENING: Has the patient had 2 falls in the last year or 1 fall with injury or currently using an Ambulatory Assistive Device (Walker, Cane, Wheelchair, Crutches, etc.)? No PATIENT GENDER DATA: Female. status: : No status: NO. PATIENT RELEVANT IMPLANT DATA REVIEWED: Yes PATIENT PRESENTS WITH AN IMPLANTABLE OR ATTACHED RESEARCH TECHNICIAN: No ALLERGIES: Reviewed and unchanged CONTRAST ALLERGY: NO. EXAM: MRI - CONTRAST TYPE: GROUP II PERIPHERAL IV DATA: Ambulatory: A peripheral IV was started in the Right antecubital site with a Angio cath/Butterfly: 23 gauge. 60 cc sugilube injected into rectum RADIOLOGY DEPARTMENT: MR; Exam(s) Completed: Body: Rectal SIGNATURE: RT Aiden(R) PATIENT NAME: Parvez Riggins DATE: January 10, 2024 TIME: 2:53 [facility]08-21-2024 Telephone encounter Note* Telephone Encounter - Terrie Mota - 01/09/2024 3:24 PM EDT Appointment reminder call- left message with directions to office and number to call if they cannotkeep this appointment [phone] opt #1 then 1 for MRI [facility]08-21-2024 Miscellaneous Notes* Telephone Encounter - Terrie Mota - 01/09/2024 3:24 PM EDT Appointment reminder call- left message with directions to office and number to call if they cannotkeep this appointment [phone] opt #1 then 1 for MRI documented in this encounterAdams County [facility]08-15-2024 Miscellaneous Notes* Telephone Encounter - Yolanda Roth CMA - 01/03/2024 12:19 PM EDT Pt called and would like a refill on Meclizine, please send it to the [facility] in [place] documented in this encounterBluffton [facility]08-[facility]24 Telephone encounter Note* Telephone Encounter - Yolanda Roth CMA - 01/03/2024 12:19 PM EDT Pt called and would like a refill on Meclizine, please send it to the [facility] in [place] [facility]08-12-2024 Miscellaneous Notes* Telephone Encounter - Yolanda Roth CMA - 12/31/2023 2:07 PM EDT Taylor from the Prior Authorization dept called states they need the actual results for the pt urine. I gave them HIM number documented in this encounterBluffton Hospital08-12-2024 Telephone encounter Note* Telephone Encounter - Yolanda Roth CMA - 12/31/2023 2:07 PM EDT Taylor from the Prior Authorization dept called states they need the actual results for the pt urine. I gave them HIM number [facility]08-08-2024 History of Present illness Narrative* Keaton Hu, - 12/27/2023 2:30 PM EDT IM PROGRESS NOTE Patient - Parvez Riggins Age - 68 y.[facility]. [facility] 1955 [id number] ASSESS[facility] & PLAN 1. Type 2 diabetes mellitus without complication, with long-term current use of insulin ([facility]) -goals of treatment reviewed with patient. -currently taking Lantus 60 units every afternoon along with Ozempic 1 mg weekly -repeat A1c to assess efficacy of current treatment. - insulin glargine (LANTUS SOLOSTAR U-100 INSULIN) 100 unit/mL (3 mL) insulin pen; Inject 60 Units under the skin in the morning. - Comprehensive metabolic panel; Future - Hemoglobin A1c; Future - Lipid profile; Future - Microalbumin - Albumin: Creatinine Urine Ratio; Future 2. Essential hypertension -goals of treatment reviewed with the patient. -current regimen includes irbesartan 300 mg nightly, metoprolol 50 mg b.i.d. -BP in Office at goal. No changes today 3. Mixed hyperlipidemia -currently prescribed a atorvastatin, but ran out several weeks ago -repeat lipid panel to lipid levels -will need to restart medication, but unsure what dose at this time. Subjective DIABETIC VISIT This is a follow up of a pre-existing problem. Patient self monitoring includes random blood sugars once or twice a week. Blood sugars generally have been between 170 and 270 mg/dL. . Patient experiences hypoglycemia none . Patient symptoms of hyperglycemia include: none. Current prescribed diet is consistent carbohydrate. Patient is not following the prescribed diet plan. Is just trying to eat what she can because of her cancer. Home activity includes: The patient does not participate in regular exercise at present.. Patient does not experience numbness or burning in their hands or feet. Patient does not have vision changes. Last eye exam was: 2023 Patient BP monitoring is not being done. Patient reports: taking medications as instructed, no medication side effects noted, patient does not perform home BP monitoring, no chest pain on exertion, no dyspnea on exertion, no swelling of ankles, no orthostatic dizziness or lightheadedness, no palpitations, and no intermittent claudication symptoms Issues affecting compliance with diabetic self management include: Currently finishing radiation therapy for rectal cancer. Is due to start chemotherapy soon. A review of systems was negative except for the following: General: weight loss Psychiatric: anxiety and concentration difficulties Musculoskeletal: gait disturbance, joint stiffness, and muscular weakness. Exam BP 124/84 (BP Site: Left Arm, BP Postition: Sitting) Pulse 86 Temp 36.9 C (98.4 F) (Oral) Ht 170.2 cm (5' 7 ) Wt 87.3 kg (192 lb 6.4 oz) SpO2 98% BMI 30.13 kg/m Physical Exam Vitals reviewed. Constitutional: General: She is not in acute distress. Appearance: She is well-developed. She is obese. She is not toxic-appearing. HENT: Head: Normocephalic. Right Ear: External ear normal. Left Ear: External ear normal. Nose: Nose normal. Mouth/Throat: Mouth: Mucous membranes are moist. Eyes: General: No scleral icterus. Neck: Vascular: No carotid bruit. Cardiovascular: Rate and Rhythm: Normal rate and regular rhythm. Pulses: Normal pulses. Heart sounds: No murmur heard. No gallop. Pulmonary: Effort: Pulmonary effort is normal. Breath sounds: No wheezing or rales. Abdominal: Palpations: Abdomen is soft. Musculoskeletal: General: Normal range of motion. Right lower leg: No edema. Left lower leg: No edema. Skin: General: Skin is warm. Coloration: Skin is not jaundiced. Findings: No bruising. Neurological: General: No focal deficit present. Mental Status: She is alert and oriented to person, place, and time. Sensory: No sensory deficit (Intact vibratory sensation bilaterally on the toes, feet and ankles. Intact monofilament testing on the feet, toes and ankles bilaterally.). Motor: No weakness. Coordination: Coordination normal. Deep Tendon Reflexes: Reflexes are normal and symmetric. Psychiatric: Mood and Affect: Mood normal. Behavior: Behavior normal. Left: Pulses Posterior Tibial: diminished Vibratory sensation normal Filament test present Right: Pulses Posterior Tibial: diminished Vibratory sensation normal Filament test present Meds Current Outpatient Medications: amLODIPine (NORVASC) 10 mg tablet, Take 1 tablet (10 mg total) by mouth respiratory nightly., Disp:90 tablet, Rfl: 1 aspirin 81 mg, Take 1 tablet (81 mg total) by mouth every other day., Disp: , Rfl: atorvastatin (LIPITOR) 40 mg tablet, take 1 tablet by mouth every evening, Disp: 90 tablet, Rfl: 1 busPIRone (BUSPAR) 10 mg tablet, take 1 tablet by mouth twice a day if needed, Disp: , Rfl: clobetasoL (TEMOVATE) 0.05 % cream, Apply 1 Application topically in the morning and 1 Application before bedtime., Disp: 30 g, Rfl: 0 FeroSuL 325 mg (65 mg iron) tablet, take 1 tablet by mouth every other day, Disp: 45 tablet, Rfl: 0 irbesartan (AVAPRO) 300 mg tablet, Take 1 tablet (300 mg total) by mouth nightly., Disp: 90 tablet,Rfl: 0 KLOR-CON 20 mEq packet, take 1 packet by mouth every morning and 1 packet at bedtime, Disp: 180 packet, Rfl: 0 meclizine (ANTIVERT) 25 mg tablet, Take 1 tablet (25 mg total) by mouth as needed for dizziness., Disp: , Rfl: 0 metoprolol tartrate (LOPRESSOR) 50 mg tablet, Take 1 tablet (50 mg total) by mouth in the morning and 1 tablet (50 mg total) before bedtime., Disp: 90 tablet, Rfl: 3 mirtazapine (REMERON) 7.5 mg tablet, take 1 tablet by mouth nightly, Disp: 30 tablet, Rfl: 1 OZEMPIC 1 mg/dose (4 mg/3 mL) pen injector, inject 1 milligram subcutaneously every week, Disp: 3 mL, Rfl: 2 pen needle, diabetic 32 gauge x 5/32 needle, 1 Pen Needle by miscellaneous route in the morning and 1 Pen Needle before bedtime., Disp: 200 each, Rfl: 1 insulin glargine (LANTUS SOLOSTAR U-100 INSULIN) 100 unit/mL (3 mL) insulin pen, Inject 60 Units under the skin in the morning., Disp: , Rfl: Lab Results No visits with results within 1 Month(s) from this visit. Latest known visit with results is: Admission on 10/28/2023, Discharged on 10/28/2023 Component Date Value Ref Range Status White Blood Cells 10/28/2023 3.6 (L) 4.0 - 11.0 X10E9/L Final RBC count 10/28/2023 3.85 3.80 - 5.20 X10E12/L Final Hemoglobin 10/28/2023 10.5 (L) 11.7 - 15.5 g/dL Final Hematocrit 10/28/2023 30.9 (L) 35 - 47 % Final MCV 10/28/2023 80 80 - 100 fL Final MCH 10/28/2023 27.2 27 - 34 pg Final MCHC 10/28/2023 34.0 32 - 36 g/dL Final RDW 10/28/2023 13.7 11.5 - 15.0 % Final Platelets 10/28/2023 225 150 - 450 X10E9/L Final MPV 10/28/2023 6.5 (L) 7 - 12 fL Final % neutrophils 10/28/2023 75.1 % Final % lymphocytes 10/28/2023 8.8 % Final % monocytes 10/28/2023 11.4 % Final % eosinophils 10/28/2023 4.0 % Final % Basophils 10/28/2023 0.7 % Final Neutrophils Absolute (A) 10/28/2023 2.7 1.5 - 6.6 X10E9/L Final Lymphocytes Absolute 10/28/2023 0.3 (L) 1.0 - 3.5 X10E9/L Final Monocytes Absolute 10/28/2023 0.4 0 - 0.9 X10E9/L Final Eosinophils Absolute 10/28/2023 0.1 0.0 - 0.4 X10E9/L Final Basophils Absolute 10/28/2023 0.0 0.0 - 0.2 X10E9/L Final Sodium 10/28/2023 133 (L) 134 - 146 mmol/L Final Potassium, Bld 10/28/2023 3.3 (L) 3.5 - 5.0 mmol/L Final Chloride 10/28/2023 103 98 - 109 mmol/L Final CO2 10/28/2023 24 22 - 32 mmol/L Final Anion gap 10/28/2023 6 5 - 15 mmol/L Final BUN 10/28/2023 12 5 - 27 mg/dL Final Creatinine 10/28/2023 1.12 (H) 0.40 - 1.00 mg/dL Final Glucose 10/28/2023 205 (H) 65 - 99 mg/dL Final Calcium 10/28/2023 8.7 8.5 - 10.5 mg/dL Final Total Protein 10/28/2023 6.5 6.0 - 8.0 g/dL Final Albumin 10/28/2023 3.2 3.2 - 5.3 g/dL Final Alkaline Phosphatase 10/28/2023 87 39 - 130 U/L Final AST 10/28/2023 19 0 - 41 U/L Final ALT 10/28/2023 18 0 - 31 U/L Final Total bilirubin 10/28/2023 1.4 (H) 0.3 - 1.2 mg/dL Final eGFR (CKD-EPI)non-race dependent 10/28/2023 54 (L) >59 ml/min/1.73sq.m Final Lipase 10/28/2023 32 17 - 40 U/L Final Other Testing No results found. ECG: Keaton Hu DO., [facility] Office: [phone] documented in this encounterBluffton Hospital07-24-2024 Miscellaneous Notes* Telephone Encounter - Winter Snider CMA - 12/12/2023 3:35 PM EDT Patient called and stated she needs a renewal for the handicap placard and they need a prescriptionfor this. * Telephone Encounter - Keaton Hu DO - 12/12/2023 3:35 PM EDT Message noted. Letter is written and available in the chart * Telephone Encounter - Fara Marsh - 12/12/2023 3:35 PM EDT Be in to supervisor opening and picking documented in this encounterBluffton Hospital07-24-2024 Telephone encounter Note* Telephone Encounter - Winter Snider CMA - 12/12/2023 3:35 PM EDT Patient called and stated she needs a renewal for the handicap placard and they need a prescriptionfor this. [address]24-2024 Telephone encounter Note* Telephone Encounter - Keaton Hu DO - 12/12/2023 3:35 PM EDT Message noted. Letter is written and available in the chart [facility]07-24-2024 Telephone encounter Note* Telephone Encounter - Fara Marsh - 12/12/2023 3:35 PM EDT Be in to supervisor opening and picking [facility]07-16-2024 Miscellaneous Notes* Telephone Encounter - Jackeline Sy - 12/04/2023 1:36 PM EDTSummary: [employer] Update Myrna with [facility] [employer] [facility] called with an update. Patient started program in . She received a cancer dx so Myrna mailed her patient education and food vouchers. They haven't been able to reach the patient since but LVM instructing her to call in if she would like to continue. Program will be discontinued @ the end of December. * Telephone Encounter - Keaton Hu DO - 12/04/2023 1:36 PM EDT Message noted. documented in this encounterBluffton Hospital07-16-2024 Telephone encounter Note* Telephone Encounter - Jackeline Sy - 12/04/2023 1:36 PM EDT Summary: [employer] Update Myrna with [facility] [employer] [facility] called with an update. Patient started program in . She received a cancer dx so Myrna mailed her patient education and food vouchers. They haven't been able to reach the patient since but LVM instructing her to call in if she would like to continue. Program will be discontinued @ the end of December. [facility]07-16-2024 Telephone encounter Note* Telephone Encounter - Keaton Hu DO - 12/04/2023 1:36 PM EDT Message noted. [facility]07-12-2024 Miscellaneous Notes* Telephone Encounter - Yolanda Roth CMA - 11/30/2023 9:56 AM EDT Pt called and would like a refill on her Potassium chloride.She use to get it from Dr Mancera for hercancer per pt. Pharmacy is listed and correct documented in this encounterBluffton Hospital07-12-2024 Telephone encounter Note* Telephone Encounter - Yolanda Roth CMA - 11/30/2023 9:56 AM EDT Pt called and would like a refill on her Potassium chloride.She use to get it from Dr Mancera for hercancer per pt. Pharmacy is listed and correct [facility]07-09-20[facility] Telephone encounter Note* Telephone Encounter - Little Bowens RN - 11/27/2023 9:17 AM EDT Pt notified of CT results Little Bowens RN [facility] Work Phone: [phone] Miscellaneous Notes* Telephone Encounter - Little Bowens RN - 11/27/2023 9:17 AM EDT Pt notified of CT results Ltitle Bowens RN documented in this encounterAdams County [facility] Center07-05-2024 History of Present illness Narrative* Nellie Ray RN - 11/23/2023 11:15 AM EDT Radiology Service Progress Note DATE OF SERVICE: November 23, 2023 TIME: 11:23 AM PATIENT WEIGHT: 193LBS PATIENT IDENTITY VERIFICATION COMPLETED USING TWO (2) STANDARD IDENTIFIERS: Name and Date of confirmed by patient verbally. FALL SCREENING: Has the patient had 2 falls in the last year or 1 fall with injury or currently using an Ambulatory Assistive Device (Walker, Cane, Wheelchair, Crutches, etc.)? No PATIENT GENDER DATA: Female. status: : No status: NO. ALLERGIES: Reviewed and unchanged CONTRAST ALLERGY: No EXAM: CT -CONTRAST INDUCED NEPHROPATHY RISK FACTORS: Patient age > 60 years CREATININE: Creatinine Date Value Ref Range Status 11/21/2023 1.11 (H) 0.58 - 0.96 mg/dL Final 10/31/2023 1.05 (H) 0.58 - 0.96 mg/dL Final 10/17/2023 1.06 (H) 0.58 - 0.96 mg/dL Final Estimated Glomerular Filtration Rate Date Value Ref Range Status 11/21/2023 55 (L) >=60 mL/min/1.73m Final Comment: Estimated Glomerular Filtration Rate (eGFR) is calculated using the 2020 CKD-EPI creatinine equation. This equation utilizes serum creatinine, sex, and age as parameters. The creatinine assay has traceable calibration to isotope dilution- mass spectrometry. Refer to KDIGO guidelines for clinical interpretation. In patients with unstable renal function, e.g. those with acute kidney injury, the eGFRmay not accurately reflect actual GFR. P.O.C.T. RESULTS: POC done: Yes, See Lab Tab November 23, 2023 TREATMENT: N/A IV SITE: Ambulatory: A peripheral IV was started in the Right antecubital site with a Angio cath: 20 gauge. IV SITE APPEARANCE: Clean,Dry and Intact SIGNATURE: Nellie Ray RN PATIENT NAME: Parvez Riggins DATE: November 23, 2023 TIME: 11:23 AM * Livier Jordan RT(R) - 11/23/2023 11:15 AM EDT Radiology Service Progress Note PATIENT NAME: Parvez Riggins DATE OF SERVICE: November 23, 2023 TIME: 11:57 AM PATIENT IDENTITY VERIFICATION COMPLETED USING TWO (2) IDENTIFIERS: Name and Date of confirmedby patient verbally. FALL SCREENING: Has the patient had 2 falls in the last year or 1 fall with injury or currently using an Ambulatory Assistive Device (Walker, Cane, Wheelchair, Crutches, etc.)? No PATIENT GENDER DATA: Female. status: : No status: NO. PATIENT RELEVANT IMPLANT DATA REVIEWED: Not Applicable PATIENT PRESENTS WITH AN IMPLANTABLE OR ATTACHED RESEARCH TECHNICIAN: No RADIOLOGY DEPARTMENT: CT; Exam(s) Completed: Chest PERIPHERAL IV DATA: Site assessment: Clean,Dry and Intact, Site disposition Discontinued SIGNED BY: RT Renetta(R) November 23, 2023 11:57 AM documented in this encounterAdams County [facility] Center07-05-2024 History of Present illness Narrative* Patricia Dee MD - 11/23/2023 12:00 AM EDT [facility] Radiation Oncology Department RADIATION ONCOLOGY - COMPLETION NOTE PATIENT: PARVEZ RIGGINS: 1955 DATES OF TREATMENT: 10/16/23 - 11/23/23 DIAGNOSIS: Rectal cancer, clinical stage IIIB T3a N2M0 AREA TREATED: PELVIS DELIVERED DOSE: Area: PELVISRECTUM 4,500 cGy in 25 fractions, 3 HENRIQUEZ, 3D Conformal, 15MV WITH DAILY CBCT DELIVERED DOSE: Area: RECTALBOOST 540 cGy in 3 fractions, 3 HENRIQUEZ, 3D Conformal, 15MV WITH DAILY CBCT TOTAL: 5,040 cGy in 28 fractions ELAPSED TIME: 37 days. CLINICAL SUMMARY: The patient received concurrent capecitabine. She tolerated radiation with mild radiation related dermatitis, diarrhea and fatigue as expected. No other issues. Her rectal symptoms including pain and pressure improved throughout the course of treatment and CBCT imaging showed excellent rectal tumor response. The patient was able to complete treatment as intended without break interruption or modification of prescription plan. The disease response will be assessed in clinic. The patient will be seen againin 2 weeks for post radiation follow-up. Staff Physician Nicholas Dee M.D. / IVAN 44:35 PM Electronically Signed cc: Dr. Hu, Dr. Zurita, Dr. Mcdonald documented in this encounterAdams County [facility] Center07-03-2024 Telephone encounter Note * Telephone Encounter - Loyda Sinha RN - 11/21/2023 4:10 PM EDT Message sent to schedulers for appt with Dr Zurita. Will follow closely [facility]07-03-2024 Miscellaneous Notes* Telephone Encounter - Loyda Sinha RN - 11/21/2023 4:10 PM EDT Message sent to schedulers for appt with Dr Zurita. Will follow closely * Telephone Encounter - Maria De Jesus Mark - 11/21/2023 3:44 PM EDT Parvez has finished her chemotherapy and radiation. Patient needs for follow up with Dr. Zurita for Surgical options. MRI of Rectum at [facility] on 12-11-23. Thank you for your help. documented in this encounterAdams County [facility] Center07-03-2024 Telephone encounter Note * Telephone Encounter - Maria De Jesus Mark - 11/21/2023 3:44 PM EDT Parvez has finished her chemotherapy and radiation. Patient needs for follow up with Dr. Zurita for Surgical options. MRI of Rectum at [facility] on 12-11-23. Thank you for your help. [facility]07-03-[facility] History of Present illness Narrative* Pauline Fatima LSW - 11/21/2023 3:00 PM EDT SOCIAL WORK FOLLOW UP NOTE: [facility]ER CENTER Date of service:11/21/23 Parvez Riggins is being seen for a follow up social work visit. Today's visit includes: patient TOPICS ADDRESSED: transportation PLAN: Continue follow up as needed F/U APPOINTMENT: 11/23/2023 Assigned SW listed in Care Team tab: Yes SW received a message that this Patient said that she does not have a ride for her last radiation treatment on 11/23/23 now that the time of her appointment has changed. SW met with Patient and encouraged her to call [facility] to confirm that a ride has been secured. SW placed the request for a ride on 11/22 with the new appointment time of 11:45am and confirmation number was received. Patient statesthat he will call and confirm. VICENTE Nash documented in this encounterAdams County [facility] Center07-03-2024 History of Present illness Narrative* Jessica Eubanks PA-C - 11/21/2023 1:37 PM EDT PATIENT NAME: Parvez Riggins CLINIC NO.: [id number] ATTENDING PHYSICIAN: Arturo Mcdonald MD DATE OF SERVICE: November 21, 2023 (Elements copied from my note dated October 31, 2023, have been reviewed and updated where appropriate, and all reflect current assessment and medical decision making during today's encounter, November 21, 2023) CC: Follow up Diagnosis: Rectal Cancer- MRI Staged T3a,N+,M0- RHYS Treatment History: Xeloda and XRT started 10/16/2023- Planned YANIV HPI: Parvez returns for follow up. Overall she is doing well with her treatments. She denies diarrhea, however she does sometimes lose bowels when she doesn't expect it. Denies any mucositis or HFS. She is scheduled to finish radiation on 11/23/2023. PAST MEDICAL HISTORY Diagnosis Date Anxiety Carcinoma of vulva (HCC) Chronic back pain COVID-19 Depression Diabetes (HCC) GERD (gastroesophageal reflux disease) HPV in female Hypertension Ovarian cyst Panic disorder PONV (postoperative nausea and vomiting) Rectal bleeding Rectal cancer (HCC) Rectal mass Sleep apnea Vulval lesion Social History Tobacco Use Smoking status: Former Years: 1 Types: Cigarettes Passive exposure: Past Smokeless tobacco: Never Substance Use Topics Alcohol use: Yes Comment: occasional Drug use: Never FAMILY HISTORY Problem Relation Age of Onset Diabetes Mother Stroke Mother Hypertension Father Uterine Cancer Maternal Grandmother Diabetes Maternal Grandfather Heart Attack Maternal Grandfather Dementia Paternal Grandmother Heart Attack Paternal Grandfather Past medical, social and family history reviewed without any changes. REVIEW OF SYSTEMS GENERAL: No weight loss, malaise or fevers. No night sweats. HEENT: Negative for headaches, No changes in hearing or vision, no nose bleeds or other nasal problems. RESPIRATORY: Negative for cough, wheezing and shortness of breath CARDIOVASCULAR: Negative for chest pain, leg swelling and palpitations GI: Negative for abdominal discomfort, blood in stools or black stools and change in bowel habits +bowel changes : Negative for dysuria, frequency and incontinence MUSCULOSKELETAL: Negative for joint pain or swelling, back pain, and muscle pain. SKIN: Negative for lesions, rash, and itching. HEMATOLOGY/LYMPHOLOGY Negative for prolonged bleeding, bruising easily, and swollen nodes. NEURO: Negative for numbness or tingling of hands/feet. No weakness. PHYSICAL EXAMINATION: BP 138/74 Pulse 89 Temp (Src) 97.9 (Temporal) Resp 16 Ht 5' 7.008 (1.70m) Wt 194 lb 7.1 oz (88.2kg) SpO2 99% BMI 30.45 kg/(m^2). ECOG PERFORMANCE STATUS: 1- Restricted in physically strenuous activity. Carries out light duty. General: Alert and oriented, no distress, pleasant and cooperative. Heart: Regular, normal S1 and S2, no murmurs, rubs, or gallops Lungs: Clear to auscultation bilaterally Abdomen: Benign Extremities: Feet/ankles without edema, posterior tibial pulses full and symmetrical LABS: Glucose (mg/dL) Date Value 11/21/2023 238 Potassium (mmol/L) Date Value 11/21/2023 3.6 04/24/2021 3.4 Sodium (mmol/L) Date Value 11/21/2023 144 04/24/2021 140 Chloride (mmol/L) Date Value 11/21/2023 108 04/24/2021 104 CO2 (mmol/L) Date Value 11/21/2023 25 Carbon Dioxide (mmol/L) Date Value 04/24/2021 23 Creatinine (mg/dL) Date Value 11/21/2023 1.11 BUN (mg/dL) Date Value 11/21/2023 11 Anion Gap (mmol/L) Date Value 11/21/2023 11 04/24/2021 13 Calcium, Total (mg/dL) Date Value 11/21/2023 10.8 Protein, Total (g/dL) Date Value 11/21/2023 7.1 Albumin (g/dL) Date Value 11/21/2023 4.0 Bilirubin, Total (mg/dL) Date Value 11/21/2023 1.0 Alkaline Phosphatase (U/L) Date Value 11/21/2023 88 AST (U/L) Date Value 11/21/2023 11 ALT (U/L) Date Value 11/21/2023 10 WBC Date Value Ref Range Status 11/21/2023 4.56 3.70 - 11.00 k/uL Final RBC Date Value Ref Range Status 11/21/2023 4.06 3.90 - 5.20 m/uL Final Hemoglobin Date Value Ref Range Status 11/21/2023 11.0 (L) 11.5 - 15.5 g/dL Final Hematocrit Date Value Ref Range Status 11/21/2023 33.3 (L) 36.0 - 46.0 % Final MCV Date Value Ref Range Status 11/21/2023 82.0 80.0 - 100.0 fL Final MCH Date Value Ref Range Status 11/21/2023 27.1 26.0 - 34.0 pg Final MCHC Date Value Ref Range Status 11/21/2023 33.0 30.5 - 36.0 g/dL Final RDW-CV Date Value Ref Range Status 11/21/2023 14.8 11.5 - 15.0 % Final Platelet Count Date Value Ref Range Status 11/21/2023 271 150 - 400 k/uL Final MPV Date Value Ref Range Status 11/21/2023 8.5 (L) 9.0 - 12.7 fL Final Abs Neut Date Value Ref Range Status 11/21/2023 3.28 1.45 - 7.50 k/uL Final Lymphocytes % Date Value Ref Range Status 11/21/2023 6.4 % Final Abs Lymph Date Value Ref Range Status 11/21/2023 0.29 (L) 1.00 - 4.00 k/uL Final Monocytes % Date Value Ref Range Status 11/21/2023 11.6 % Final Abs [place] Date Value Ref Range Status 11/21/2023 0.53 <0.87 k/uL Final Abs Eosin Date Value Ref Range Status 11/21/2023 0.39 <0.46 k/uL Final Basophils % Date Value Ref Range Status 11/21/2023 0.9 % Final Abs Baso Date Value Ref Range Status 11/21/2023 0.04 <0.11 k/uL Final PATH: Colonoscopy 06/2023: Rectal mass, procedure not specified: - 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 2. Anal verge, procedure not specified: - Inflammatory cloacogenic polyp, ulcerated, negative for dysplasia or carcinoma. MMR Interpretation Proficient (Microsatellite Stable Imaging: CT Scan of the Chest and Abdomen and Pelvis 06/2203: 1. Left-sided nodular opacities measuring up to 5 mm. Metastatic disease is not excluded. Recommend continued attention to these areas on follow-up exams. 2. No evidence of intrathoracic lymphadenopathy. 1. Large rectal mass with numerous enlarged perirectal nodes, suspicious for ami metastatic disease. 2. No additional findings to suggest distant abdominal or pelvic metastatic disease. 3. Linear bandlike hypodensity within the spleen, suggestive of a splenic infarct. 4. 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 MRI Rectum 08/2023: IMPRESSION: MID RECTAL SEMIANNULAR MASS. Stage: T3a N+ MRF: Clear (tumor margin >2 mm from MRF), however a metastatic mesorectal lymph node abuts the MRF Sphincter involvement: No. Suspicious extra mesorectal lymph nodes: No. EMVI: No. Assessment and Plan: Parvez Riggins is a 68 year old year old female here for follow up. Rectal cancer-started planned YANIV. Started radiation and xeloda on October 16, 2023. She is doing well.She does have fatigue but otherwise no major side effects.She will complete xeloda and xrt on 11/23/2023. I have arranged for a repeat MRI rectum and a follow up with [facility]. She has decided she would like to maintain her care in [place] and I will offer her a follow up with a new oncologist in 2-3 weeks to plan her YANIV therapy. She does not have a port and wishes to proceed without one. We may needto proceed with CAPOX. 5 mm left-sided nodular opacity on initial staging CT--will repeat CT chest before her return Post dental extraction DM2--not well controlled. She will follow up with her PCP for this Jessica Eubanks PA-C CC: Keaton Hu MD I spent a total of 22 minutes on the date of the service which included preparing to see the patient, [id number] patient care, completing clinical documentation, obtaining and/or reviewing separately obtained history, performing a medically appropriate examination, counseling and educating the pat ient/family/caregiver, ordering medications, tests, or procedures, communicating with other HCPs (not separately reported), independently interpreting results (not separately reported), communicatingresults to the patient/family/caregiver, and care coordination (not separately reported). documented in this encounterAd[facility] History of Present illness Narrative* Patricia Dee MD - 11/19/2023 1:10 PM EDT Radiation Oncology - On Treatment Review (OTR) Note PATIENT NAME: Parvez Riggins PATIENT DIAGNOSIS: Rectal cancer, clinical stage IIIB T3a N2M0 COURSE: definitive, concurrent chemotherapy, and YANIV Current dose: 4500 cGy in 25 fx Planned dose: 5040 cGy in 28 fx Status: Patient states there is no possibility she is at this time SUBJECTIVE: Is having some perirectal irritation. No other problems. PHYSICAL EXAM: 11/19/23 1313 BP: (P) 139/80 Pulse: (P) 71 Resp: (P) 16 Temp: (P) 36.3 C (97.4 F) SpO2: (P) 97% Weight: (P) 88.5 kg (195 lb 1.7 oz) KPS: 100 General Appearance: Alert and oriented. No acute distress. Radiation dermatitis: none Abdomen: Soft. Nontender. Nondistended. Pelvic exam: Moderate erythema with some dry desquamative changes without exudate or evidence of infection in the perianal region. IMAGING/LAB RESULTS: Hemoglobin (g/dL) Date Value 10/31/2023 10.0 Hematocrit (%) Date Value 10/31/2023 30.6 WBC (k/uL) Date Value 10/31/2023 3.38 Platelet Count (k/uL) Date Value 10/31/2023 192 TOXICITY ASSESSMENT (CTC v4.0): Fatigue: grade 1 Weight loss: grade 0 - No weight loss Nausea: Grade 0 - No Symptoms Diarrhea: grade 1 Urinary frequency: grade 0 - No symptoms Dysuria: grade 0 - No symptoms Radiation Dermatitis: grade 1/2 Treatment chart checked: Yes Patient treatment site reviewed and verified:Yes Port films reviewed and current:Yes Medications started: None ASSESSMENT/PLAN: Overall doing well. Discussed skin care. Will finish from prior. Follow-up care discussed. Patricia Dee MD documented in this encounterAd[facility]07-01-2024 Telephone encounter Note * Telephone Encounter - Pauline Fatima LSW - 11/19/2023 10:40 AM EDT SOCIAL WORK FOLLOW UP NOTE: [facility] Date of service:11/19/23 TOPICS ADDRESSED: transportation PLAN: Continue follow up as needed F/U APPOINTMENT: 11/23/23 appointment time changed from 1330 to 1145. Assigned SW listed in Care Team tab: Yes RT called and requested an radiation appointment time change for 11/22 to 1145. SW called [facility] [phone] and spoke with Sharri. Appointment time changed from 1330 to 1145. Patient will be picked up between 1025-4541. Return home ride is set for 1230. Confirmation # remains the same [id number]. RT updated and they will update the Patient. SW will remain available and will follow up as appropriate. VICENTE Nash [facility]07-01-2024 Miscellaneous Notes* Telephone Encounter - Pauline Fatima LSW - 11/19/2023 10:40 AM EDT SOCIAL WORK FOLLOW UP NOTE: [facility] Date of service:11/19/23 TOPICS ADDRESSED: transportation PLAN: Continue follow up as needed F/U APPOINTMENT: 11/23/23 appointment time changed from 1330 to 1145. Assigned SW listed in Care Team tab: Yes RT called and requested an radiation appointment time change for 11/22 to 1145. SW called [facility] [phone] and spoke with Sharri. Appointment time changed from 1330 to 1145. Patient will be picked up between [id number]. Return home ride is set for 1230. Confirmation # remains the same [id number]. RT updated and they will update the Patient. SW will remain available and will follow up as appropriate. VICENTE Nash documented in this encounterAdams [facility]06-28-2024 Telephone encounter Note * Telephone Encounter - Pauline Fatima LSW - 11/16/2023 2:44 PM EDT SOCIAL WORK FOLLOW UP NOTE: [facility] Date of service:36498 TOPICS ADDRESSED: [employer] [facility] PLAN: Continue follow up as needed Assigned SW listed in Care Team tab: Yes SW called [employer] regarding the application that was sent over in September. SW was told that the application was received and the Director spoke with this Patient on 09/21/23 about the CancerCare Fund. Patient has not used any of the $500 that is available to her. SW will encourage Patientto call the [employer] to discuss how to access the fund. VICENTE Nash [facility]06-28-2024 Miscellaneous Notes* Telephone Encounter - Pauline Fatima LSW - 11/16/2023 2:44 PM EDT SOCIAL WORK FOLLOW UP NOTE: [facility] Date of service:77417 TOPICS ADDRESSED: [employer] Cancer Care Fund PLAN: Continue follow up as needed Assigned PAUL listed in Care Team tab: Yes SW called [employer] regarding the application that was sent over in September. SW was told that the application was received and the Director spoke with this Patient on 09/21/23 about the CancerCare Fund. Patient has not used any of the $500 that is available to her. SW will encourage Patientto call the [employer] to discuss how to access the fund. VICENTE Nash documented in this encounterAdams [facility]06-27-2024 Telephone encounter Note * Telephone Encounter - Pauline Fatima LSW - 11/15/2023 3:15 PM EDT SOCIAL WORK FOLLOW UP NOTE: [facility] Date of service:11/15/23 Parvez Riggins is being seen for a follow up social work visit. Today's visit includes: patient TOPICS ADDRESSED: finances and community resources PLAN: Assist with financial support applications, Continue follow up as needed , and Referral to community resource Assigned SW listed in Care Team tab: Yes SW received a message from YESSENIA Gonzalez that this Patient wanted to speak with this SW about a letter she requested. SW called Patient and she explains that the [employer] [place] recently cut her grass due to a complaint from a neighbor. Patient states that she has been trying to secure someone to cuther grass since May. Patient reports that her grass has not been mowed this year and it was as high as her waistline. Patient's story about her yard and lawnmower changed a several times throughout our conversation and this SW had a hard time following her. Patient said that the [employer] [place] will be billing her for $600 to cut her grass and to trim her trees in the backyard. Patient cannot afford that expense. SW encouraged Patient to bring in the bill once she receives and then this SW will contact [facility] [employer] to see if they have any available funds. Patient states that she was told by Dr. Dee not to do yardwork. Patients wants a letter statingthat she is not to be doing yardwork. SW asked who would need this letter. Patient states that she just wants a letter like that to provide validation and proof that she cannot tend to her yard. SW mentioned that if the [facility] needed such a letter than one could be requested. Patient verbalized understanding and was in agreement. Patient mentioned that she [facility]. Patient states that she called them and they have not returned her call. SW will the [facility] to follow uptomorrow. SW will remain available and will follow up as appropriate. ROSLYN Nash-Yunior [facility]06-27-2024 Miscellaneous Notes* Telephone Encounter - Pauline Fatima LSW - 11/15/2023 3:15 PM EDT SOCIAL WORK FOLLOW UP NOTE: [facility] Date of service:11/15/23 Parvez Riggins is being seen for a follow up social work visit. Today's visit includes: patient TOPICS ADDRESSED: finances and community resources PLAN: Assist with financial support applications, Continue follow up as needed , and Referral to community resource Assigned SW listed in Care Team tab: Yes SW received a message from YESSENIA Gonzalez that this Patient wanted to speak with this SW about a letter she requested. SW called Patient and she explains that the [facility] recently cut her grass due to a complaint from a neighbor. Patient states that she has been trying to secure someone to cuther grass since May. Patient reports that her grass has not been mowed this year and it was as high as her waistline. Patient's story about her yard and lawnmower changed a several times throughout our conversation and this SW had a hard time following her. Patient said that the [facility] will be billing her for $600 to cut her grass and to trim her trees in the backyard. Patient cannot afford that expense. SW encouraged Patient to bring in the bill once she receives and then this SW will contact [facility] [employer] to see if they have any available funds. Patient states that she was told by Dr. Dee not to do yardwork. Patients wants a letter statingthat she is not to be doing yardwork. SW asked who would need this letter. Patient states that she just wants a letter like that to provide validation and proof that she cannot tend to her yard. SW mentioned that if the [facility] needed such a letter than one could be requested. Patient verbalized understanding and was in agreement. Patient mentioned that she [facility]. Patient states that she called them and they have not returned her call. SW will the [facility] to follow uptomorrow. SW will remain available and will follow up as appropriate. VICENTE Nash documented in this encounterAdams County [facility]06-26-2024 History of Present illness Narrative* Pauline Fatima LSW - 11/14/2023 2:29 PM EDT SOCIAL WORK FOLLOW UP NOTE: [facility] Date of service:11/14/23 TOPICS ADDRESSED: transportation PLAN: Continue follow up as needed F/U APPOINTMENT: 11/18-11/22 Assigned SW listed in Care Team tab: Yes SW called [employer] [phone] and scheduled rides for the Patient's remaining radiation treatments. Ride details: 11/19/23 Trip # [id number] Pt home supervisor opening and picking: Between 12:10-12:40pm supervisor operations from Clinic: 2:15pm 11/20/23 Trip # [id number] Pt home supervisor opening and picking: Between 11:55-12:35pm supervisor operations from Clinic: 2:15pm 11/21/23 Trip # [id number] Pt home supervisor opening and picking: Between 11:45-12:15pm supervisor operations from Clinic: 3:00pm 11/23/23 Trip # [id number] Pt home supervisor opening and picking: Between 12:10-12:40pm supervisor operations from Clinic: 2:00pm VICENTE Nash documented in this encounterAdams [facility]06-24-2024 History of Present illness Narrative* Patricia Dee MD - 11/12/2023 1:45 PM EDT Radiation Oncology - On Treatment Review (OTR) Note PATIENT NAME: Parvez Riggins PATIENT DIAGNOSIS: Rectal cancer, clinical stage IIIB T3a N2M0 COURSE: definitive, concurrent chemotherapy, and YANIV Current dose: 3600 cGy in 30 fx Planned dose: 5040 cGy in 28 fx Status: Patient states there is no possibility she is at this time SUBJECTIVE: Patient has fatigue. Some difficulty with doing things outside in the heat. She states that her pelvic pressure pain has nearly resolved. No further bleeding. PHYSICAL EXAM: 11/12/23 1318 BP: 135/78 Pulse: 89 Resp: 16 Temp: 36.4 C (97.5 F) Weight: 89 kg (196 lb 3.4 oz) KPS: 100 General Appearance: Alert and oriented. No acute distress. Radiation dermatitis: none Abdomen: Soft. Nontender. Nondistended. Pelvic exam: deferred IMAGING/LAB RESULTS: Hemoglobin (g/dL) Date Value 10/31/2023 10.0 Hematocrit (%) Date Value 10/31/2023 30.6 WBC (k/uL) Date Value 10/31/2023 3.38 Platelet Count (k/uL) Date Value 10/31/2023 192 TOXICITY ASSESSMENT (CTC v4.0): Fatigue: grade 1 Weight loss: grade 0 - No weight loss Nausea: Grade 0 - No Symptoms Diarrhea: grade 1 Urinary frequency: grade 0 - No symptoms Dysuria: grade 0 - No symptoms Radiation Dermatitis: grade 0 - No symptoms Treatment chart checked: Yes Patient treatment site reviewed and verified:Yes Port films reviewed and current:Yes Medications started: None ASSESSMENT/PLAN: Overall doing fairly well. She has had a significant response as documented on [facility] CT. Overall tolerance is good, within expected parameters. Continue radiation as outlined. Patricia eDe MD documented in this encounterAd[facility]06-21-2024 Telephone encounter Note * Telephone Encounter - Arturo Mcdonald MD - 11/09/2023 4:09 PM EDT Thanks. This is very overwhelming for her [facility]06-21-2024 Miscellaneous Notes* Telephone Encounter - Arturo Mcdonald MD - 11/09/2023 4:09 PM EDT Thanks. This is very overwhelming for her * Telephone Encounter - More Madsen LPN - 11/09/2023 2:56 PM EDT Images from the original note were not included. Parvez is here for radiation therapy and she was off balance when standing to go back for her treatment. VS: BP 159/85, P80, R16, T98.0, SpO2 97% RA. She denies c/o lightheaded or dizziness. She states she is drinking water and caffienated tea most days. She is also diabetic and states she ate 2 boiled eggs today. She did not check her blood sugar today. She said her glucometer is at her friends house and she only checks it once a day after her radiation treatment. She said she does have long acting and short acting insulin prescribed and typically only takes her long acting insulin daily. We discussed that she needs to be compliant with checking her blood sugar as instructed per treating physician. She said her on body glucose monitor does not adhere as it should. She states her physicianis aware. She is tearful today stating she is overwhelmed with her condition and home duties. She lives alone. She has a situation with the [employer] [place] and her not cutting her grass. Per RT Angel, Parvez'slawn mower is not working and the city came out and mowed the lawn and then billed her for it. She said she does have a daughter that she spoke with today and her dtr is going to call the city to update them on her condition and see what can be done. RT Rory said she went over and talked to Xiao in the lab to see if her organization could possibly help Parvez with the bill from the [employer]. Xiao said yes but will need a letter from Dr. Dee stating Parvez is under his care, is unable to care for her lawn due to her medical condition, and is inneed of financial assistance. Parvez is scheduled for a weekly OTV with Dr. Dee on 11/12/23. I will forward this message to VERNON Carpenter for her assistance with both patients emotional, and physical status as well as financial concerns. Thank you, More Madsen RN documented in this encounterAdams [facility]06-21-2024 Telephone encounter Note * Telephone Encounter - More Madsen LPN - 11/09/2023 2:56 PM EDT Images from the original note were not included. Parvez is here for radiation therapy and she was off balance when standing to go back for her treatment. VS: BP 159/85, P80, R16, T98.0, SpO2 97% RA. She denies c/o lightheaded or dizziness. She states she is drinking water and caffienated tea most days. She is also diabetic and states she ate 2 boiled eggs today. She did not check her blood sugar today. She said her glucometer is at her friends house and she only checks it once a day after her radiation treatment. She said she does have long acting and short acting insulin prescribed and typically only takes her long acting insulin daily. We discussed that she needs to be compliant with checking her blood sugar as instructed per treating physician. She said her on body glucose monitor does not adhere as it should. She states her physicianis aware. She is tearful today stating she is overwhelmed with her condition and home duties. She lives alone. She has a situation with the [employer] [place] and her not cutting her grass. Per Winsome Denis, RT, Parvez'slawn mower is not working and the city came out and mowed the lawn and then billed her for it. She said she does have a daughter that she spoke with today and her dtr is going to call the [facility] to update them on her condition and see what can be done. RT Rory said she went over and talked to Xiao in the lab to see if her organization could possibly help Parvez with the bill from the [facility]. Xiao said yes but will need a letter from Dr. Dee stating Parvez is under his care, is unable to care for her lawn due to her medical condition, and is inneed of financial assistance. Parvez is scheduled for a weekly OTV with Dr. Dee on 11/12/23. I will forward this message to VERNON Carpenter for her assistance with both patients emotional, and physical status as well as financial concerns. Thank you, More Madsen RN [facility]06-[facility] Nurse Note* More Madsen LPN - 11/09/2023 1:00 PM EDT Parvez is here for radiation therapy and she was off balance when standing to go back for her treatment. VS: BP 159/85, P80, R16, T98.0, SpO2 97% RA. She denies c/o lightheaded or dizziness. She states she is drinking water and caffienated tea most days. She is also diabetic and states she ate 2 boiled eggs today. She did not check her blood sugar today. She said her glucometer is at her friends house and she only checks it once a day after her radiation treatment. She said she does have long acting and short acting insulin prescribed and typically only takes her long acting insulin daily. We discussed that she needs to be compliant with checking her blood sugar as instructed per treating physician. She said her on body glucose monitor does not adhere as it should. She states her physicianis aware. She is tearful today stating she is overwhelmed with her condition and home duties. She lives alone. She has a situation with the [employer] [place] and her not cutting her grass. Per RT Angel, Parvez'slawn mower is not working and the city came out and mowed the lawn and then billed her for it. She said she does have a daughter that she spoke with today and her dtr is going to call the [facility] to update them on her condition and see what can be done. RT Rory said she went over and talked to Xiao in the lab to see if her organization could possibly help Parvez with the bill from the [facility]. Xiao said yes but will need a letter from Dr. Dee stating Parvez is under his care, is unable to care for her lawn due to her medical condition, and is inneed of financial assistance. Parvez is scheduled for a weekly OTV with Dr. Dee on 11/12/23. I will forward this message to VERNON Carpenter for her assistance with both patients emotional, and physical status as well as financial concerns. Thank you, More Madsen RN [facility]06-[facility] Nurse Note* More Madsen LPN - 11/09/2023 1:00 PM EDT Parvez is here for radiation therapy and she was off balance when standing to go back for her treatment. VS: BP 159/85, P80, R16, T98.0, SpO2 97% RA. She denies c/o lightheaded or dizziness. She states she is drinking water and caffienated tea most days. She is also diabetic and states she ate 2 boiled eggs today. She did not check her blood sugar today. She said her glucometer is at her friends house and she only checks it once a day after her radiation treatment. She said she does have long acting and short acting insulin prescribed and typically only takes her long acting insulin daily. We discussed that she needs to be compliant with checking her blood sugar as instructed per treating physician. She said her on body glucose monitor does not adhere as it should. She states her physicianis aware. She is tearful today stating she is overwhelmed with her condition and home duties. She lives alone. She has a situation with the [employer] [place] and her not cutting her grass. Per RT Angel, Parvez'slawn mower is not working and the city came out and mowed the lawn and then billed her for it. She said she does have a daughter that she spoke with today and her dtr is going to call the [facility] to update them on her condition and see what can be done. Winsome Munguia, RT said she went over and talked to Xiao in the lab to see if her organization could possibly help Parvez with the bill from the [facility]. Xiao said yes but will need a letter from Dr. Dee stating Parvez is under his care, is unable to care for her lawn due to her medical condition, and is inneed of financial assistance. Parvez is scheduled for a weekly OTV with Dr. Dee on 11/12/23. I will forward this message to VERNON Carpenter for her assistance with both patients emotional, and physical status as well as financial concerns. Thank you, More Madsen RN documented in this encounterAd[facility]06-[facility] Telephone encounter Note * Telephone Encounter - Little Bowens RN - 11/08/2023 1:16 PM EDT TOXICITY CHECK SYMPTOM ASSESSMENT The patient is on Xeloda with radiation Headache: No Dizziness: No Do you have any periods of confusion? No Appetite: none. States she has a lot going on outside of her treatments Nausea: Yes takes antiemetics with when needed with relief Vomiting: No Heartburn: No. Weight gain/loss: No Episodes of palpitations/chest discomfort/pressure/pain No Shortness of breath: No Cough: No Diarrhea: no pt states she has loose stools but she gets this every summer from the heat. Constipation: no Bladder/Urinary Changes: None Pain: No=0 (pain 0 on a scale of 0-10). Fever: No Chills: No Numbness/weakness: Yes weaker than normal, numbness/tingling in feet some. Edema: No Skin changes: No Itching: No Yellowing of skin or eyes: No Musculoskeletal/joint changes/issues No Bleeding issues: No Does the patient need interventions or same day appointment:No Pt states she's having issues with her home and the [facility]. Pt states the [facility] told her thatdemetrise needs to clean up her property and mow her lawn, but she doesn't feel well enough to go out anddo it. Pt states she had some people there yesterday helping her take trash to the road to be picked up, but the city [place] members wouldn't leave. Pt states they mowed her lawn. She states they will be having a ton[place]anda meeting tonight regarding her property to come up with a plan of what to do. Pt was provided a letter stating she is actively being treated in our office for cancer. Reinforced CURRENT treatment education based on current and anticipated symptoms. Discussed port/line care and patient verbalizes understanding: Not Applicable Patient instructed to contact office or after hours Hematology/Oncology fellow for: temperature ? 100.4; questions or concerns. Patient verbalized understanding of when to seek medical attention and after hours number protocol. Little Bowens RN [facility] Work Phone: [phone]) 575-578206-20-2024 Miscellaneous Notes* Telephone Encounter - Little Bowens RN - 11/08/2023 1:16 PM EDT TOXICITY CHECK SYMPTOM ASSESSMENT The patient is on Xeloda with radiation Headache: No Dizziness: No Do you have any periods of confusion? No Appetite: none. States she has a lot going on outside of her treatments Nausea: Yes takes antiemetics with when needed with relief Vomiting: No Heartburn: No. Weight gain/loss: No Episodes of palpitations/chest discomfort/pressure/pain No Shortness of breath: No Cough: No Diarrhea: no pt states she has loose stools but she gets this every summer from the heat. Constipation: no Bladder/Urinary Changes: None Pain: No=0 (pain 0 on a scale of 0-10). Fever: No Chills: No Numbness/weakness: Yes weaker than normal, numbness/tingling in feet some. Edema: No Skin changes: No Itching: No Yellowing of skin or eyes: No Musculoskeletal/joint changes/issues No Bleeding issues: No Does the patient need interventions or same day appointment:No Pt states she's having issues with her home and the [facility]. Pt states the city told her thatshe needs to clean up her property and mow her lawn, but she doesn't feel well enough to go out anddo it. Pt states she had some people there yesterday helping her take trash to the road to be picked up, but the city ton[place] members wouldn't leave. Pt states they mowed her lawn. She states they will be having a [place]anda meeting tonight regarding her property to come up with a plan of what to do. Pt was provided a letter stating she is actively being treated in our office for cancer. Reinforced CURRENT treatment education based on current and anticipated symptoms. Discussed port/line care and patient verbalizes understanding: Not Applicable Patient instructed to contact office or after hours Hematology/Oncology fellow for: temperature ? 100.4; questions or concerns. Patient verbalized understanding of when to seek medical attention and after hours number protocol. Little Bowens RN documented in this encounterAdams County [facility] Center06-17-2024 History of Present illness Narrative* Tobi Lee MD - 11/05/2023 11:56 PM EDT Radiation Oncology - On Treatment Review (OTR) Note PATIENT NAME: Parvez Riggins PATIENT DIAGNOSIS: Rectal cancer, clinical stage IIIB T3a N2M0 COURSE: definitive, concurrent chemotherapy, and YANIV Current dose: 2700 cGy in 15 fx Planned dose: 5040 cGy in 28 fx SUBJECTIVE: Tolerating XRT fairly well with the patient did require visit to the ER for abdominal discomfort which was felt to be related to constipation. She has since had a bowel movement and notesimprovement in her discomfort. She was encouraged to start using MiraLAX but was unable to start itdue to financial constraints. She also notes mild nausea without vomiting with fatigue. PHYSICAL EXAM: KPS: 80 General Appearance: Alert and oriented. No acute distress. Radiation dermatitis: No Abdomen: Soft. IMAGING/LAB RESULTS: None TOXICITY ASSESSMENT (CTC v4.0): Fatigue: grade 1 - Fatigue relieved by rest Weight loss: grade 0 - No weight loss Nausea: Grade 1 - Loss of appetite without alteration in eating habits Diarrhea: grade 0 - No symptoms Urinary frequency: grade 0 - No symptoms Dysuria: grade 0 - No symptoms Radiation Dermatitis: grade 0 - No symptoms Treatment chart checked: Yes Patient treatment site reviewed and verified:Yes Port films reviewed and current:Yes Medications started: None ASSESSMENT/PLAN: Clinically stable. Toxicity within expected parameters. Continue radiation treatment as planned. Will place referral with our social work team to see if they can help with her medications. Tobi Lee MD documented in this encounterAdams County [facility] Center06-17-2024 History of Present illness Narrative* Pauline Fatima LSW - 11/05/2023 2:40 PM EDT Social Work Problem Referral Note INFORMATION/REFERRAL : Parvez Riggins 68 year old female was referred by - CIPRIANO Mackenzie to [facility] Social Work for the following reason(s): financial assistance - meals, parking, etc. INTERVENTION: Information & Referral Service Co-ordination IDENTIFIED PROBLEMS/NEEDS: Financial Intervention/Referral to be provided:Financial: Applications(s) sent to: Other: [facility] IMPRESSION/PLAN:SW received a message that this Patient was encouraged to take Miralax for her current symptoms.Patient reported that she cannot afford this OTC medication. SW [facility] and the cost is $5.29. SW contacted [facility] and they are able to cover the cost. Avril was asked to contact Xiao Roth from [facility] before the Patient goes to pick this medication up from [facility]. SW will remain available and will follow up as appropriate. Assigned SW listed in Care Team tab: Yes VICENTE Nash documented in this encounterAdams County Regional [facility] Center06-17-2024 Nurse Note* More Madsen LPN - 11/05/2023 2:00 PM EDT Status: Post-menopausal. [facility]06-[facility] Nurse Note* More Madsen LPN - 11/05/2023 2:00 PM EDT Status: Post-menopausal. documented in this encounterAdams County Regional [facility] Center06-12-2024 History of Present illness Narrative* Jessica Eubanks PA-C - 10/31/2023 2:30 PM EDT PATIENT NAME: Parvez Riggins [facility] NO.: [id number] ATTENDING PHYSICIAN: Arturo Mcdonald MD DATE OF SERVICE: October 31, 2023 (Elements copied from Dr. Mcdonald's note dated October 16, 2023, have been reviewed and updated where appropriate, and all reflect current assessment and medical decision making during today's encounter, October 31, 2023) CC: Follow up Diagnosis: Rectal Cancer- MRI Staged T3a,N+,M0- RHYS Treatment History: Xeloda and XRT started 10/16/2023- Planned YANIV HPI: Parvez returns for follow up. Since her last visit, She did develops some abdominal pain and went tothe ER 10/28/23. Work up revealed moderate amount of stool in the colon with a large amount of stool int he colorectal junction on CTs. She was given an enema which helped. She does admit that she did not start her xeloda pills until about 4-5 days after radiation started. She is no taking them regularly. She is having fatigue.Denies any rectal bleeding. PAST MEDICAL HISTORY Diagnosis Date Anxiety Carcinoma of vulva (HCC) Chronic back pain COVID-19 Depression Diabetes (HCC) GERD (gastroesophageal reflux disease) HPV in female Hypertension Ovarian cyst Panic disorder PONV (postoperative nausea and vomiting) Rectal bleeding Rectal cancer (HCC) Rectal mass Sleep apnea Vulval lesion Social History Tobacco Use Smoking status: Former Years: 1 Types: Cigarettes Passive exposure: Past Smokeless tobacco: Never Substance Use Topics Alcohol use: Yes Comment: occasional Drug use: Never FAMILY HISTORY Problem Relation Age of Onset Diabetes Mother Stroke Mother Hypertension Father Uterine Cancer Maternal Grandmother Diabetes Maternal Grandfather Heart Attack Maternal Grandfather Dementia Paternal Grandmother Heart Attack Paternal Grandfather Past medical, social and family history reviewed without any changes. REVIEW OF SYSTEMS GENERAL: No weight loss, malaise or fevers. No night sweats. HEENT: Negative for headaches, No changes in hearing or vision, no nose bleeds or other nasal problems. RESPIRATORY: Negative for cough, wheezing and shortness of breath CARDIOVASCULAR: Negative for chest pain, leg swelling and palpitations GI: Negative for abdominal discomfort, blood in stools or black stools and change in bowel habits : Negative for dysuria, frequency and incontinence MUSCULOSKELETAL: Negative for joint pain or swelling, back pain, and muscle pain. SKIN: Negative for lesions, rash, and itching. HEMATOLOGY/LYMPHOLOGY Negative for prolonged bleeding, bruising easily, and swollen nodes. NEURO: Negative for numbness or tingling of hands/feet. No weakness. PHYSICAL EXAMINATION: BP 133/73 Pulse 85 Temp (Src) 98.5 (Temporal) Resp 16 Ht 5' 7.008 (1.70m) Wt 203 lb 9.6 oz (92.4kg) SpO2 98% BMI 31.88 kg/(m^2). ECOG PERFORMANCE STATUS: 1- Restricted in physically strenuous activity. Carries out light duty. General: Alert and oriented, no distress, pleasant and cooperative. Heart: Regular, normal S1 and S2, no murmurs, rubs, or gallops Lungs: Clear to auscultation bilaterally Abdomen: Benign Extremities: Feet/ankles without edema, posterior tibial pulses full and symmetrical LABS: Glucose (mg/dL) Date Value 10/31/2023 306 Potassium (mmol/L) Date Value 10/31/2023 3.5 04/24/2021 3.4 Sodium (mmol/L) Date Value 10/31/2023 137 04/24/2021 140 Chloride (mmol/L) Date Value 10/31/2023 104 04/24/2021 104 CO2 (mmol/L) Date Value 10/31/2023 25 Carbon Dioxide (mmol/L) Date Value 04/24/2021 23 Creatinine (mg/dL) Date Value 10/31/2023 1.05 BUN (mg/dL) Date Value 10/31/2023 10 Anion Gap (mmol/L) Date Value 10/31/2023 8 04/24/2021 13 Calcium, Total (mg/dL) Date Value 10/31/2023 8.6 Protein, Total (g/dL) Date Value 10/31/2023 6.3 Albumin (g/dL) Date Value 10/31/2023 3.5 Bilirubin, Total (mg/dL) Date Value 10/31/2023 0.6 Alkaline Phosphatase (U/L) Date Value 10/31/2023 93 AST (U/L) Date Value 10/31/2023 10 ALT (U/L) Date Value 10/31/2023 11 WBC Date Value Ref Range Status 10/31/2023 3.38 (L) 3.70 - 11.00 k/uL Final RBC Date Value Ref Range Status 10/31/2023 3.72 (L) 3.90 - 5.20 m/uL Final Hemoglobin Date Value Ref Range Status 10/31/2023 10.0 (L) 11.5 - 15.5 g/dL Final Hematocrit Date Value Ref Range Status 10/31/2023 30.6 (L) 36.0 - 46.0 % Final MCV Date Value Ref Range Status 10/31/2023 82.3 80.0 - 100.0 fL Final MCH Date Value Ref Range Status 10/31/2023 26.9 26.0 - 34.0 pg Final MCHC Date Value Ref Range Status 10/31/2023 32.7 30.5 - 36.0 g/dL Final RDW-CV Date Value Ref Range Status 10/31/2023 13.4 11.5 - 15.0 % Final Platelet Count Date Value Ref Range Status 10/31/2023 192 150 - 400 k/uL Final MPV Date Value Ref Range Status 10/31/2023 8.5 (L) 9.0 - 12.7 fL Final Abs Neut Date Value Ref Range Status 10/31/2023 2.24 1.45 - 7.50 k/uL Final Lymphocytes % Date Value Ref Range Status 10/31/2023 13.3 % Final Abs Lymph Date Value Ref Range Status 10/31/2023 0.45 (L) 1.00 - 4.00 k/uL Final Monocytes % Date Value Ref Range Status 10/31/2023 11.8 % Final Abs [place] Date Value Ref Range Status 10/31/2023 0.40 <0.87 k/uL Final Abs Eosin Date Value Ref Range Status 10/31/2023 0.24 <0.46 k/uL Final Basophils % Date Value Ref Range Status 10/31/2023 0.6 % Final Abs Baso Date Value Ref Range Status 10/31/2023 <0.03 <0.11 k/uL Final PATH: Colonoscopy 06/2023: Rectal mass, procedure not specified: - 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 2. Anal verge, procedure not specified: - Inflammatory cloacogenic polyp, ulcerated, negative for dysplasia or carcinoma. MMR Interpretation Proficient (Microsatellite Stable Imaging: CT Scan of the Chest and Abdomen and Pelvis 06/2203: 1. Left-sided nodular opacities measuring up to 5 mm. Metastatic disease is not excluded. Recommend continued attention to these areas on follow-up exams. 2. No evidence of intrathoracic lymphadenopathy. 1. Large rectal mass with numerous enlarged perirectal nodes, suspicious for ami metastatic disease. 2. No additional findings to suggest distant abdominal or pelvic metastatic disease. 3. Linear bandlike hypodensity within the spleen, suggestive of a splenic infarct. 4. 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 MRI Rectum 08/2023: IMPRESSION: MID RECTAL SEMIANNULAR MASS. Stage: T3a N+ MRF: Clear (tumor margin >2 mm from MRF), however a metastatic mesorectal lymph node abuts the MRF Sphincter involvement: No. Suspicious extra mesorectal lymph nodes: No. EMVI: No. Assessment and Plan: Parvez Riggins is a 68 year old year old female here for follow up. Rectal cancer-started planned YANIV. Started radiation and xeloda on October 16, 2023. She is doing well.She does have fatigue but otherwise no major side effects. She will continue and see us in 3 weeks for repeat labs. 5 mm left-sided nodular opacity will need follow-up on subsequent imaging studies. Post dental extraction DM2--not well controlled. She will follow up with her PCP for this Jessica Eubanks PA-C I spent a total of 30 minutes on the date of the service which included preparing to see the patient, [id number] patient care, completing clinical documentation, performing a medically appropriate examination, counseling and educating the patient/family/caregiver, ordering medications, tests, or p rocedures, independently interpreting results (not separately reported), and communicating results to the patient/family/caregiver. CC: Keaton Hu MD documented in this encounterAdams County [facility]06-12-2024 Telephone encounter Note * Telephone Encounter - Little Bowens RN - 10/31/2023 1:28 PM EDT TOXICITY CHECK SYMPTOM ASSESSMENT The patient is on xeloda with radiation Headache: No Visual Changes: No Dizziness: No Do you have any periods of confusion? No Mood changes: No Mouth or throat pain: No Appetite: decreased, nothing sounds appealing to pt Taste changes: No Nausea: Yes antiemetics working better now Vomiting: No Heartburn: No. Weight gain/loss: No Episodes of palpitations/chest discomfort/pressure/pain No Shortness of breath: No Cough: No Diarrhea: no Constipation: yes, last BM today. Pt states she was in the ER over the weekend with severe constipation. Bladder/Urinary Changes: None Pain: bilateral hip pain, much better today, 4/10 and tolerable. Tylenol is helping Fever: No Chills: No Cold sensitivity: No Numbness/weakness: No Edema: No Skin changes: No Itching: No Yellowing of skin or eyes: No Musculoskeletal/joint changes/issues No Bleeding issues: No Activity Level (0-100%): 50% Do you need to take naps? Yes; Do you wake up feeling rested? Yes Does the patient need interventions or same day appointment:No Reinforced CURRENT treatment education based on current and anticipated symptoms. Discussed port/line care and patient verbalizes understanding: Not Applicable Patient instructed to contact office or after hours Hematology/Oncology fellow for: temperature ? 100.4; questions or concerns. Patient verbalized understanding of when to seek medical attention and after hours number protocol. Little Bowens RN [facility] Work Phone: [phone] Miscellaneous Notes* Telephone Encounter - Little Bowens RN - 10/31/2023 1:28 PM EDT TOXICITY CHECK SYMPTOM ASSESSMENT The patient is on xeloda with radiation Headache: No Visual Changes: No Dizziness: No Do you have any periods of confusion? No Mood changes: No Mouth or throat pain: No Appetite: decreased, nothing sounds appealing to pt Taste changes: No Nausea: Yes antiemetics working better now Vomiting: No Heartburn: No. Weight gain/loss: No Episodes of palpitations/chest discomfort/pressure/pain No Shortness of breath: No Cough: No Diarrhea: no Constipation: yes, last BM today. Pt states she was in the ER over the weekend with severe constipation. Bladder/Urinary Changes: None Pain: bilateral hip pain, much better today, 4/10 and tolerable. Tylenol is helping Fever: No Chills: No Cold sensitivity: No Numbness/weakness: No Edema: No Skin changes: No Itching: No Yellowing of skin or eyes: No Musculoskeletal/joint changes/issues No Bleeding issues: No Activity Level (0-100%): 50% Do you need to take naps? Yes; Do you wake up feeling rested? Yes Does the patient need interventions or same day appointment:No Reinforced CURRENT treatment education based on current and anticipated symptoms. Discussed port/line care and patient verbalizes understanding: Not Applicable Patient instructed to contact office or after hours Hematology/Oncology fellow for: temperature ? 100.4; questions or concerns. Patient verbalized understanding of when to seek medical attention and after hours number protocol. Little Bowens RN documented in this encounterAdams County [facility] Center06-10-2024 History of Present illness Narrative* Patricia Dee MD - 10/29/2023 1:53 PM EDT Radiation Oncology - On Treatment Review (OTR) Note PATIENT NAME: Parvez Riggins PATIENT DIAGNOSIS: Rectal cancer, clinical stage IIIB T3a N2M0 COURSE: definitive, concurrent chemotherapy, and YANIV Current dose: 1800 cGy in 10 fx Planned dose: 5040 cGy in 28 fx Status: Patient states there is no possibility she is at this time SUBJECTIVE: Patient presents to the emergency room over the weekend. Complaints of constipation. Mild abdominal pain. No fever. She underwent imaging including CT abdomen and pelvis on 10/28/2023, demonstrating moderate amount ofstool in the colon/colorectal junction. Interval decrease distal rectal mass. No other significant findings. She is done better after she was given an enema. She has had some mild diarrhea since thattime. PHYSICAL EXAM: 10/29/23 1347 BP: 141/77 Pulse: 83 Resp: 18 Temp: 36.2 C (97.1 F) TempSrc: Temporal SpO2: 100% Weight: 89.4 kg (197 lb 1.5 oz) KPS: 100 General Appearance: Alert and oriented. No acute distress. Radiation dermatitis: none Abdomen: Soft. Nontender. Nondistended. Pelvic exam: deferred IMAGING/LAB RESULTS: None TOXICITY ASSESSMENT (CTC v4.0): Fatigue: grade 1 Weight loss: grade 0 - No weight loss Nausea: Grade 0 - No Symptoms Diarrhea: grade 1 Urinary frequency: grade 0 - No symptoms Dysuria: grade 0 - No symptoms Radiation Dermatitis: grade 0 - No symptoms Treatment chart checked: Yes Patient treatment site reviewed and verified:Yes Port films reviewed and current:Yes Medications started: None ASSESSMENT/PLAN: Overall tolerance good. Continue radiation as outlined. Patricia Dee MD documented in this encounterAdams County [facility]06-04-2024 Telephone encounter Note * Telephone Encounter - Little Bowens RN - 10/23/2023 3:46 PM EDT ORAL ANTI-CANCER AGENTS FOLLOW-UP PHONE CALL/VISIT Patient identified by name and date of . YES Patient is on cycle capecitabine, week 1, day 5 of Capecitabine (Xeloda) for Colon / Rectal Cancer. Patients states she only takes her capecitabine sometimes . When she's able to swallow the pill without difficulties. States she chews up some crackers and then puts the pill in her mouth and swallows it with the crackers. Pt asks if she can chew it up instead and instructed pt that she can not chew it at all. Verbalized understanding. States she waits to take it after her radiation treatment because she doesn't want to take it ahead of time and be sick at her appointment. Re-instructed pt that this is to be taken 12 hours apart. Pt verbalized understanding and will try taking this as prescribed. SYMPTOM ASSESSMENT Headache: No Visual Changes: No Dizziness: Yes once when her sugar was elevated on 10/16 Do you have any periods of confusion? No Mood changes: No Mouth or throat pain: No Appetite: decreased appetite pt states this is from being on ozempic Taste changes: No Nausea: Yes pt states she has persistent nausea from being on ozempic, and has tried antiemetics once with no relief. Vomiting: No Heartburn: No. Weight gain/loss: Yes pt states she has been trying to lose weight for some time now and is on ozempic with good results. Episodes of palpitations/chest discomfort/pressure/pain No Shortness of breath: Yes pt states if it is really humid outside she feels like she gets winded more often Cough: No Diarrhea: no Constipation: no Bladder/Urinary Changes: None Pain: yes, pt notes she always has pain in her bilateral hip/kidney area. Usually this is a 7/10, but pt says this has dissipated recently and is now 4/10. Tylenol takes the edge off most times. Fever: No Chills: No Cold sensitivity: No Numbness/weakness: No Peripheral neuropathy: pt states this is a little worse now, but it's hard to tell if it's from herdiabetes or the medication. Pt states she is off her ozempic right now and her sugars are higher than normal, so she feels her neuropathy is from that. Edema: No Skin changes: No Itching: No Yellowing of skin or eyes: No Musculoskeletal/joint changes/issues No Bleeding issues: No Activity Level (0-100%): 50% Do you need to take naps? Yes; Do you wake up feeling rested? Yes Does the patient need interventions or same day appointment:No ADDITIONAL FOLLOW UP: The next outreach call is due on: as needed and was scheduled as needed The following lab tests are due: CBC, CMP Verified patient is aware of next appointment in the cancer center: Yes. Verified patient verbalized how to correctly refill the oral agent prescription. Yes Does the patient have any financial difficulties affording this medication? Yes, pt has seen socialwork in the past and is actively seeing her now. Patient verbalizes understanding of when to seek Medical Attention? YES Patient verbalizes understanding of after-hours and weekend phone number? YES Patient verbalized importance of medication compliance in taking the oral agent as prescribed. Patient instructed to call if unable to comply. Little Bowens RN [facility] Work Phone: [phone] Miscellaneous Notes* Telephone Encounter - Little Bowens RN - 10/23/2023 3:46 PM EDT ORAL ANTI-CANCER AGENTS FOLLOW-UP PHONE CALL/VISIT Patient identified by name and date of . YES Patient is on cycle capecitabine, week 1, day 5 of Capecitabine (Xeloda) for Colon / Rectal Cancer. Patients states she only takes her capecitabine sometimes . When she's able to swallow the pill without difficulties. States she chews up some crackers and then puts the pill in her mouth and swallows it with the crackers. Pt asks if she can chew it up instead and instructed pt that she can not chew it at all. Verbalized understanding. States she waits to take it after her radiation treatment because she doesn't want to take it ahead of time and be sick at her appointment. Re-instructed pt that this is to be taken 12 hours apart. Pt verbalized understanding and will try taking this as prescribed. SYMPTOM ASSESSMENT Headache: No Visual Changes: No Dizziness: Yes once when her sugar was elevated on 10/16 Do you have any periods of confusion? No Mood changes: No Mouth or throat pain: No Appetite: decreased appetite pt states this is from being on ozempic Taste changes: No Nausea: Yes pt states she has persistent nausea from being on ozempic, and has tried antiemetics once with no relief. Vomiting: No Heartburn: No. Weight gain/loss: Yes pt states she has been trying to lose weight for some time now and is on ozempic with good results. Episodes of palpitations/chest discomfort/pressure/pain No Shortness of breath: Yes pt states if it is really humid outside she feels like she gets winded more often Cough: No Diarrhea: no Constipation: no Bladder/Urinary Changes: None Pain: yes, pt notes she always has pain in her bilateral hip/kidney area. Usually this is a 7/10, but pt says this has dissipated recently and is now 4/10. Tylenol takes the edge off most times. Fever: No Chills: No Cold sensitivity: No Numbness/weakness: No Peripheral neuropathy: pt states this is a little worse now, but it's hard to tell if it's from herdiabetes or the medication. Pt states she is off her ozempic right now and her sugars are higher than normal, so she feels her neuropathy is from that. Edema: No Skin changes: No Itching: No Yellowing of skin or eyes: No Musculoskeletal/joint changes/issues No Bleeding issues: No Activity Level (0-100%): 50% Do you need to take naps? Yes; Do you wake up feeling rested? Yes Does the patient need interventions or same day appointment:No ADDITIONAL FOLLOW UP: The next outreach call is due on: as needed and was scheduled as needed The following lab tests are due: CBC, CMP Verified patient is aware of next appointment in the cancer center: Yes. Verified patient verbalized how to correctly refill the oral agent prescription. Yes Does the patient have any financial difficulties affording this medication? Yes, pt has seen socialwork in the past and is actively seeing her now. Patient verbalizes understanding of when to seek Medical Attention? YES Patient verbalizes understanding of after-hours and weekend phone number? YES Patient verbalized importance of medication compliance in taking the oral agent as prescribed. Patient instructed to call if unable to comply. Little Bowens RN * Telephone Encounter - Little Bowens RN - 10/23/2023 11:06 AM EDT ORAL ANTI-CANCER AGENTS FOLLOW-UP PHONE CALL/VISIT Patient identified by name and date of . YES Patient is on cycle 1, week 1, day 6 of Capecitabine (Xeloda) for Colon / Rectal Cancer. Message left requesting pt to call our office back. Little Bowens RN documented in this encounterAd[facility]06-[facility] Telephone encounter Note * Telephone Encounter - Pauline Fatima LSW - 10/23/2023 2:05 PM EDT SOCIAL WORK FOLLOW UP NOTE: CANCER CENTER Date of service:10/23/23 Parvez Riggins is being seen for a follow up social work visit. Today's visit includes: patient TOPICS ADDRESSED: transportation PLAN: Continue follow up as needed F/U APPOINTMENT: see below Assigned SW listed in Care Team tab: Yes VICENTE Nash called [employer] [phone] to arrange transportation for the Patient's upcoming radiation treatments. SW booked rides for 10/29/23-11/16/23. SW will [facility] at the end of October to securerides the remaining radiation treatments 11/18-11/22. Confirmation #'s for the secured rides are as follows.. Reference # Seat Scooper Machine time Return Home 10/28 [id number] 1235 1415 10/29 [id number] 1235 1415 10/30 [id number] 1235 1415 10/31 [id number] 1235 1415 11/01 [id number] 1235 1415 11/04 [id number] 1235 1415 11/05 [id number] 1235 1415 11/06 [id number] 1235 1415 11/07 [id number] 1235 1415 11/08 [id number] 1235 1415 11/11 06704 1235 1415 11/12 [id number] 1235 1415 11/13 43372 1235 1415 11/14 35586 1235 1415 11/15 53597 1235 1415 [facility]06[facility] Miscellaneous Notes* Telephone Encounter - Pauline Fatima LSW - 10/23/2023 2:05 PM EDT SOCIAL WORK FOLLOW UP NOTE: CANCER CENTER Date of service:10/23/23 Parvez Riggins is being seen for a follow up social work visit. Today's visit includes: patient TOPICS ADDRESSED: transportation PLAN: Continue follow up as needed F/U APPOINTMENT: see below Assigned SW listed in Care Team tab: Yes VICENTE Nash called [employer] [phone] to arrange transportation for the Patient's upcoming radiation treatments. SW booked rides for 10/29/23-11/16/23. SW will contact [facility] at the end of October to securerides the remaining radiation treatments 11/18-11/22. Confirmation #'s for the secured rides are as follows.. Reference # Seat Scooper Machine time Return Home 10/28 [id number] 1235 1415 10/29 [id number] 1235 1415 10/30 [id number] 1235 1415 10/31 [id number] 1235 1415 11/01 [id number] 1235 1415 11/04 [id number] 1235 1415 11/05 [id number] 1235 1415 11/06 [id number] 1235 1415 11/07 08602 1235 1415 11/08 20075 1235 1415 11/11 [id number] 1235 1415 11/12 44620 1235 1415 11/13 54615 1235 1415 11/14 45419 1235 1415 11/15 24360 123 1415 documented in this encounterAd[facility]06-04-2024 Telephone encounter Note * Telephone Encounter - Little Bowens RN - 10/23/2023 11:06 AM EDT ORAL ANTI-CANCER AGENTS FOLLOW-UP PHONE CALL/VISIT Patient identified by name and date of . YES Patient is on cycle 1, week 1, day 6 of Capecitabine (Xeloda) for Colon / Rectal Cancer. Message left requesting pt to call our office back. Little Bowens RN [facility]06-03-[facility] History of Present illness Narrative* Patricia Dee MD - 10/22/2023 2:03 PM EDT Radiation Oncology - On Treatment Review (OTR) Note PATIENT NAME: Parvez Riggins PATIENT DIAGNOSIS: Rectal cancer, clinical stage IIIB T3a N2M0 COURSE: definitive, concurrent chemotherapy, and YANIV Current dose: 900 cGy in 5 fx Planned dose: 5040 cGy in 28 fx Status: Patient states there is no possibility she is at this time SUBJECTIVE: Has some fatigue more at the end of the week. Has noted less pelvic pressure. PHYSICAL EXAM: 10/22/23 1359 BP: 142/72 Pulse: 86 Resp: 16 Temp: 36.7 C (98 F) SpO2: 98% Weight: 95.1 kg (209 lb 10.5 oz) KPS: 100 General Appearance: Alert and oriented. No acute distress. Radiation dermatitis: none Abdomen: Soft. Nontender. Nondistended. Pelvic exam: deferred IMAGING/LAB RESULTS: None TOXICITY ASSESSMENT (CTC v4.0): Fatigue: grade 1 Weight loss: grade 0 - No weight loss Nausea: Grade 0 - No Symptoms Diarrhea: grade 0 - No symptoms Urinary frequency: grade 0 - No symptoms Dysuria: grade 0 - No symptoms Radiation Dermatitis: grade 0 - No symptoms Treatment chart checked: Yes Patient treatment site reviewed and verified:Yes Port films reviewed and current:Yes Medications started: None ASSESSMENT/PLAN: Overall tolerance good. Continue radiation as outlined. Patricia Dee MD documented in this encounterAdams [facility]06-03-2024 Nurse Note* More Madsen LPN - 10/22/2023 2:00 PM EDT Status: Post-menopausal. [facility]06-[facility] Nurse Note* More Madsen LPN - 10/22/2023 2:00 PM EDT Status: Post-menopausal. documented in this encounterAdams [facility]05-30-2024 Telephone encounter Note * Telephone Encounter - Little Bowens RN - 10/18/2023 1:47 PM EDT Pt here for radiation today and requests to speak with a nurse regarding her IV from yesterday. Spoke with pt who states her IV site was very sore all night last night and still is today. Site assessed and no redness, streaking, warmth, or swelling noted. Unable to see where IV was, but patient pointed to her right wrist. Encouraged pt to try warm or cool compresses to see if this helps, and to call our office with any new s/s. Pt verbalized understanding. Little Bowens RN [facility] Work Phone: [phone] Miscellaneous Notes* Telephone Encounter - Little Bowens RN - 10/18/2023 1:47 PM EDT Pt here for radiation today and requests to speak with a nurse regarding her IV from yesterday. Spoke with pt who states her IV site was very sore all night last night and still is today. Site assessed and no redness, streaking, warmth, or swelling noted. Unable to see where IV was, but patient pointed to her right wrist. Encouraged pt to try warm or cool compresses to see if this helps, and to call our office with any new s/s. Pt verbalized understanding. Little Bowens RN documented in this encounterAdams [facility]05-29-2024 History of Present illness Narrative* Jeniffer Hunter RN - 10/17/2023 3:[address] Hu's office [phone] and spoke with Winter, she confirmed patient's appt for October 28@1300 specifically for diabetes management Patient was aware. She also adds that she has a Dexcom she can not get to result. She understands that Dr Hu will manage glucose control Jeniffer Hunter RN * Jeniffer Hunter RN - 10/17/2023 2:48 PM EDT Patient aware that CHAI recommendations were made to contact PCP Dr Hu for follow up and management of blood glucose. Parvez states that she has a follow up appt but was unsure. She will call his office to clarify and notify us with follow up. Jeniffer Hunter RN * Jeniffer Hunter RN - 10/17/2023 2:35 PM EDT Patient has confirmed that her glucometer is not working properly and she is in need of assistance to obtain one. Jeniffer Hunter RN * Jeniffer Hunter RN - 10/17/2023 2:17 PM EDT Patient has arrived for IVF from radiation, report per Issa Madsen RN, patient blood glucose 327 initially, then noted brief episode of patient unresponsiveness, squad was called and patient declined, states she has not eaten today, ECG NSR hr 71 bpm, BP 116/74, repeat blood glucose 306, oxygen titrated off, Spo2 100% RA Patient is alert and oriented, sitting quietly eyes open in treatment chair, no distress noted, denies pain, IVF NS @500 ml/hr infusing from Radiation Patient discussed with VERNON Garcia and transport was set up for 1615 today Jeniffer Hunter RN documented in this encounterAdams [facility]05-29-2024 Miscellaneous Notes* Telephone Encounter - Winter Sniedr CMA - 10/17/2023 3:27 PM EDT Nurse called form [facility] oncology [facility] rad[facility] stating patient was in for a visit today and was telling them her BS have been very uncontrollable ranging from 300-500. She also had an episode today while there and was unresponsive. She states her Glucometer is broken and needs a new one. They are sending records from today over. [facility] Telephone encounter Note* Telephone Encounter - Winter Snider CMA - 10/17/2023 3:27 PM EDT Nurse called form [facility]ology [facility] rad[facility] stating patient was in for a visit today and was telling them her BS have been very uncontrollable ranging from 300-500. She also had an episode today while there and was unresponsive. She states her Glucometer is broken and needs a new one. They are sending records from today over. [facility] [id number] Nurse Note* More Madsen LPN - 10/17/2023 2:26 PM EDT 1300 Parvez arrived for radiation therapy, lab work and possible IV hydration. Patient walked back to the exam room and sat in a chair. Blood sugar yesterday resulted at 537. Patient to have repeat glucose today. Patient states she did not have anything to eat today and took her insulin as prescribed. She states her home glucometer is not working. IV attempted in right wrist but was unsuccessful. IV started in right upper forearm and patient stated she felt a little dizzy. While securing a dressing to the IV site the patient became unresponsive. Doctor CHE called and Dr. Falcon and staff arrived for assistance. 1318 Fingerstick blood [id number], BP 116/74, P 71. Patient assisted to the floor by 4 assist. 1320 IV fluids started with normalsaline. Patient became responsive, alert and oriented x 3 to name, and location. ECG resulted normal sinus rhythm. Patient declined transport to ER by squad. Dr. Mcdonald aware and patient transported to infusion room to continue IV hydration. More Madsen RN [facility]05-29-2024 Nurse Note* More Madsen LPN - 10/17/2023 2:26 PM EDT 1300 Parvez arrived for radiation therapy, lab work and possible IV hydration. Patient walked back to the exam room and sat in a chair. Blood sugar yesterday resulted at 537. Patient to have repeat glucose today. Patient states she did not have anything to eat today and took her insulin as prescribed. She states her home glucometer is not working. IV attempted in right wrist but was unsuccessful. IV started in right upper forearm and patient stated she felt a little dizzy. While securing a dressing to the IV site the patient became unresponsive. Doctor STAT called and Dr. Falcon and staff arrived for assistance. 1318 Fingerstick blood , BP 116/74, P 71. Patient assisted to the floor by 4 assist. 1320 IV fluids started with normalsaline. Patient became responsive, alert and oriented x 3 to name, and location. ECG resulted normal sinus rhythm. Patient declined transport to ER by squad. Dr. Mcdonald aware and patient transported to infusion room to continue IV hydration. More Madsen RN documented in this encounterAd[facility]05-29-2024 Nurse Note* Sherrie Rogers MA - 10/17/2023 2:02 PM EDT Patient identified by 2 identifiers. EKG performed as ordered. Sherrie Rogers MA [facility]05-29-2024 Nurse Note* Sherrie Rogers MA - 10/17/2023 2:02 PM EDT Patient identified by 2 identifiers. EKG performed as ordered. Sherrie Rogers MA documented in this encounterAdams [facility]05-29-2024 Telephone encounter Note * Telephone Encounter - Pauline Fatima LSW - 10/17/2023 11:35 AM EDT SOCIAL WORK FOLLOW UP NOTE: CANCER CENTER Date of service:10/17/23 Parvez Riggins is being seen for a follow up social work visit. Today's visit includes: patient TOPICS ADDRESSED: transportation PLAN: Continue follow up as needed Assigned SW listed in Care Team tab: Yes Patient called in to ask about what time she should expect the taxi cab to arrive today. Taxi will arrive around 1240. PAUL printed out the list of taxi cab supervisor opening and picking times for the following dates 10/16-10/25. [facility] book [facility] cab rides for her remaining treatments 10/25-11/22. VICENTE Nash Addendum: Shortly after the Patient arrived for her radiation appointment a Dr. Desai was called. Patient reportedly has been having issues with her blood sugars. Patient was ordered to have IVF in addition to her radiation treatment. SW called the taxi cab co [employer] and asked for a return home ride at 4:15pm. Nursing and radiation therapists were updated on the new supervisor opening and picking time for today. SW met with Patient and expressed concerns about the cabin worker that she had today. She reports that the car smelled like smoke and it made her feels sick. SW will request non-smoking cab drivers if at all possible when booking future rides. Patient states that she will wear a mask on the way home if she has the same cabin worker. PAUL was contacted by [employer]IPRIANO Swift that this Patient may be ordered a new glucometer since her current one may not be working properly. Jeniffer wanted to know what financial resources are available if the Patient is given a prescription for a glucometer and cannot afford the OOP costs. Patient has beenenrolled in a Cancer Care Fund through [facility]. They may be able to cover the costs o f a glucometer if the Patient has not exhausted her $500 george. SW will remain available and will follow up as appropriate. VICENTE Nash [facility]05-29-2024 Miscellaneous Notes* Telephone Encounter - Pauline Fatima LSW - 10/17/2023 11:35 AM EDT SOCIAL WORK FOLLOW UP NOTE: CANCER CENTER Date of service:10/17/23 Parvez Riggins is being seen for a follow up social work visit. Today's visit includes: patient TOPICS ADDRESSED: transportation PLAN: Continue follow up as needed Assigned SW listed in Care Team tab: Yes Patient called in to ask about what time she should expect the taxi cab to arrive today. Taxi will arrive around 1240. PAUL printed out the list of taxi cab supervisor opening and picking times for the following dates 10/16-10/25. [facility] to book [facility] cab rides for her remaining treatments 10/25-11/22. VICENTE Nash Addendum: Shortly after the Patient arrived for her radiation appointment a Dr. Desai was called. Patient reportedly has been having issues with her blood sugars. Patient was ordered to have IVF in addition to her radiation treatment. SW called the taxi cab co [employer] and asked for a return home ride at 4:15pm. Nursing and radiation therapists were updated on the new supervisor opening and picking time for today. SW met with Patient and expressed concerns about the cabin worker that she had today. She reports that the car smelled like smoke and it made her feels sick. SW will request non-smoking cab drivers if at all possible when booking future rides. Patient states that she will wear a mask on the way home if she has the same cabin worker. PAUL was contacted by [employer] that this Patient may be ordered a new glucometer since her current one may not be working properly. Jeniffer wanted to know what financial resources are available if the Patient is given a prescription for a glucometer and cannot afford the OOP costs. Patient has beenenrolled in a Cancer Care Fund through [facility]. They may be able to cover the costs o f a glucometer if the Patient has not exhausted her $500 george. SW will remain available and will follow up as appropriate. VICENTE Nash documented in this encounterAd[facility]05-29-2024 Telephone encounter Note * Telephone Encounter - Ashwini Stanton RN - 10/17/2023 11:24 AM EDT Called and spoke with pt. She has transportation that will pick her up and have her here for 130 appt. Pauline will need to update on new supervisor opening and picking time to accommodate 2 hour hydration. Nixon Koch aware. PSS adding to schedule A Graves will initiate IV with BMP. Per Chai, if blood glucose >600 pt to go to ER, if < 600 can proceed with IV hydration, as planned. Ashwini Stanton RN [facility]05-29-2024 Miscellaneous Notes* Telephone Encounter - Ashwini Stanton RN - 10/17/2023 11:24 AM EDT Called and spoke with pt. She has transportation that will pick her up and have her here for 130 appt. Pauline will need to update on new supervisor opening and picking time to accommodate 2 hour hydration. T August aware. PSS adding to schedule A Graves will initiate IV with BMP. Per Chai, if blood glucose >600 pt to go to ER, if < 600 can proceed with IV hydration, as planned. Ashwini Stanton RN * Telephone Encounter - Ashwini Stanton RN - 10/17/2023 11:23 AM EDT ----- Message from Arturo Mcdonald MD sent at 10/16/2023 4:33 PM EDT ----- She is here for radiation tomorrow. Lets plan for hydration and also repeat glucose please. documented in this encounterAdams [facility]05-29-2024 Telephone encounter Note * Telephone Encounter - Ashwini Stanton RN - 10/17/2023 11:23 AM EDT ----- Message from Arturo Mcdonald MD sent at 10/16/2023 4:33 PM EDT ----- She is here for radiation tomorrow. Lets plan for hydration and also repeat glucose please. [facility]05-28-2024 Note* Addendum Note - Arturo Mcdonald MD - 10/16/2023 4:34 PM EDTAddended by: ARTURO MCDONALD on: 10/16/2023 04:34 PM Modules accepted: Orders [facility]05-28-2024 Miscellaneous Notes* Addendum Note - Arturo Mcdonald MD - 10/16/2023 4:34 PM EDTAddended by: ARTURO MCDONALD on: 10/16/2023 04:34 PM Modules accepted: Orders documented in this encounterAdams [facility]05-28-2024 Telephone encounter Note * Telephone Encounter - Ashwini Stanton RN - 10/16/2023 4:26 PM EDT Glucose 537 called. Chai martin, pt instructed to take insulin per SSC or go to nearest ER. Pt did drink OJ prior to appt and will take her fast acting insulin and closely monitor. Pt will go to nearest ER for continued elevated results or onset of symptoms(pt denies any symptoms at this time.) Pt denies further needs or concerns at this time. Ashwini Stanton RN [facility]05-28-2024 Miscellaneous Notes* Telephone Encounter - Ashwini Stanton RN - 10/16/2023 4:26 PM EDT Glucose 537 called. Chai aware, pt instructed to take insulin per SSC or go to nearest ER. Pt did drink OJ prior to appt and will take her fast acting insulin and closely monitor. Pt will go to nearest ER for continued elevated results or onset of symptoms(pt denies any symptoms at this time.) Pt denies further needs or concerns at this time. Ashwini Stanton RN documented in this encounterAdams County [facility] Center05-28-2024 History of Present illness Narrative* Arturo Mcdonald MD - 10/16/2023 3:27 PM EDT PATIENT NAME: Parvez Riggins CLINIC NO.: [id number] ATTENDING PHYSICIAN: Arturo Mcdonald MD DATE OF SERVICE: October 16, 2023 Some of the elements of this note have been copied from my previous progress note dated 09/11/2023. All the information has been reviewed carefully. Dear Dr. Ellis referring provider defined for this encounter. here is an update on a follow up visit on female Parvez Riggins at the clinic October 16, 2023 Diagnosis: Rectal Cancer- MRI Staged T3a,N+,M0- RHYS Xeloda and XRT started 10/16/2023- Planned YANIV Treatment History: HPI: Parvez Riggins is a 68 year old year old female here for follow up. She feels better after addressing her dental issues. She had to have some tooth extractions. Otherwise she tolerated her first radiation well. She has not taken her Xeloda yet. PAST MEDICAL HISTORY Diagnosis Date Anxiety Carcinoma of vulva (HCC) Chronic back pain COVID-19 Depression Diabetes (HCC) GERD (gastroesophageal reflux disease) HPV in female Hypertension Ovarian cyst Panic disorder PONV (postoperative nausea and vomiting) Rectal bleeding Rectal cancer (HCC) Rectal mass Sleep apnea Vulval lesion Social History Tobacco Use Smoking status: Former Years: 1 Types: Cigarettes Passive exposure: Past Smokeless tobacco: Never Substance Use Topics Alcohol use: Yes Comment: occasional Drug use: Never FAMILY HISTORY Problem Relation Age of Onset Diabetes Mother Stroke Mother Hypertension Father Uterine Cancer Maternal Grandmother Diabetes Maternal Grandfather Heart Attack Maternal Grandfather Dementia Paternal Grandmother Heart Attack Paternal Grandfather Past medical, social and family history reviewed without any changes. REVIEW OF SYSTEMS GENERAL: No weight loss, malaise or fevers. No night sweats. HEENT: Negative for headaches, No changes in hearing or vision, no nose bleeds or other nasal problems. RESPIRATORY: Negative for cough, wheezing and shortness of breath CARDIOVASCULAR: Negative for chest pain, leg swelling and palpitations GI: Negative for abdominal discomfort, blood in stools or black stools and change in bowel habits : Negative for dysuria, frequency and incontinence MUSCULOSKELETAL: Negative for joint pain or swelling, back pain, and muscle pain. SKIN: Negative for lesions, rash, and itching. HEMATOLOGY/LYMPHOLOGY Negative for prolonged bleeding, bruising easily, and swollen nodes. NEURO: Negative for numbness or tingling of hands/feet. No weakness. PHYSICAL EXAMINATION: There were no vitals taken for this visit. Wt 89.9 kg (198 lb 3.1 oz) BMI 31.03 kg/m2 Last 3 Encounter Wt Readings: Date: Wt: 09/11/2023 89.9 kg (198 lb 3.1 oz) 09/11/2023 89.9 kg (198 lb 3.1 oz) 07/19/2023 84.9 kg (187 lb 2.7 oz) General appearance:ECOG PERFORMANCE STATUS: 1- Restricted in physically strenuous activity. Carries out light duty. Patient in NAD. Skin: Skin color, texture, turgor normal. No rashes or lesions. Eyes: Anicteric sclera. Pupils are equally round and reactive to light. Extraocular movements are intact. Lymph Nodes: No cervical, supraclavicular, axillary or inguinal adenopathy. Oropharynx: Lips, mucosa, and tongue normal. Back: No pain to percussion. Negative SLR test Lungs clear to auscultation, No wheezing or rhonchi Heart: RRR without murmur, gallop, or rubs. Abdomen soft, non-tender. No masses, organomegaly Extremities: No deformities. No edema Neuro: Gait and speech normal. Reflexes normal and symmetric. Muscular strength intact. Sensation grossly intact. Rectal: Deferred : Deferred LABS: Glucose (mg/dL) Date Value 07/11/2023 206 Potassium (mmol/L) Date Value 07/11/2023 3.0 04/24/2021 3.4 Sodium (mmol/L) Date Value 07/11/2023 142 04/24/2021 140 Chloride (mmol/L) Date Value 07/11/2023 102 04/24/2021 104 CO2 (mmol/L) Date Value 07/11/2023 28 Carbon Dioxide (mmol/L) Date Value 04/24/2021 23 Creatinine (mg/dL) Date Value 07/11/2023 1.11 BUN (mg/dL) Date Value 07/11/2023 8 Anion Gap (mmol/L) Date Value 07/11/2023 12 04/24/2021 13 Calcium, Total (mg/dL) Date Value 07/11/2023 9.3 Protein, Total (g/dL) Date Value 07/11/2023 6.7 Albumin (g/dL) Date Value 07/11/2023 3.6 Bilirubin, Total (mg/dL) Date Value 07/11/2023 0.8 Alkaline Phosphatase (U/L) Date Value 07/11/2023 105 AST (U/L) Date Value 07/11/2023 14 ALT (U/L) Date Value 07/11/2023 10 WBC Date Value Ref Range Status 10/16/2023 9.77 3.70 - 11.00 k/uL Final RBC Date Value Ref Range Status 10/16/2023 4.49 3.90 - 5.20 m/uL Final Hemoglobin Date Value Ref Range Status 10/16/2023 12.0 11.5 - 15.5 g/dL Final Hematocrit Date Value Ref Range Status 10/16/2023 35.6 (L) 36.0 - 46.0 % Final MCV Date Value Ref Range Status 10/16/2023 79.3 (L) 80.0 - 100.0 fL Final MCH Date Value Ref Range Status 10/16/2023 26.7 26.0 - 34.0 pg Final MCHC Date Value Ref Range Status 10/16/2023 33.7 30.5 - 36.0 g/dL Final RDW-CV Date Value Ref Range Status 10/16/2023 12.3 11.5 - 15.0 % Final Platelet Count Date Value Ref Range Status 10/16/2023 383 150 - 400 k/uL Final MPV Date Value Ref Range Status 10/16/2023 9.6 9.0 - 12.7 fL Final Abs Neut Date Value Ref Range Status 10/16/2023 7.04 1.45 - 7.50 k/uL Final Lymphocytes % Date Value Ref Range Status 10/16/2023 16.6 % Final Abs Lymph Date Value Ref Range Status 10/16/2023 1.62 1.00 - 4.00 k/uL Final Monocytes % Date Value Ref Range Status 10/16/2023 7.7 % Final Abs [place] Date Value Ref Range Status 10/16/2023 0.75 <0.87 k/uL Final Abs Eosin Date Value Ref Range Status 10/16/2023 0.23 <0.46 k/uL Final Basophils % Date Value Ref Range Status 10/16/2023 0.8 % Final Abs Baso Date Value Ref Range Status 10/16/2023 0.08 <0.11 k/uL Final PATH: Colonoscopy 06/2023: Rectal mass, procedure not specified: - 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 2. Anal verge, procedure not specified: - Inflammatory cloacogenic polyp, ulcerated, negative for dysplasia or carcinoma. MMR Interpretation Proficient (Microsatellite Stable Imaging: CT Scan of the Chest and Abdomen and Pelvis 06/2203: 1. Left-sided nodular opacities measuring up to 5 mm. Metastatic disease is not excluded. Recommend continued attention to these areas on follow-up exams. 2. No evidence of intrathoracic lymphadenopathy. 1. Large rectal mass with numerous enlarged perirectal nodes, suspicious for ami metastatic disease. 2. No additional findings to suggest distant abdominal or pelvic metastatic disease. 3. Linear bandlike hypodensity within the spleen, suggestive of a splenic infarct. 4. 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 MRI Rectum 08/2023: IMPRESSION: MID RECTAL SEMIANNULAR MASS. Stage: T3a N+ MRF: Clear (tumor margin >2 mm from MRF), however a metastatic mesorectal lymph node abuts the MRF Sphincter involvement: No. Suspicious extra mesorectal lymph nodes: No. EMVI: No. Assessment and Plan: Parvez Riggins is a 68 year old year old female here for follow up. Rectal cancer-started planned YANIV. Started radiation today October 16, 2023 and will also start Xeloda today. Discussed adverse events including diarrhea with her at great length. Also discussed hand-foot syndrome. 5 mm left-sided nodular opacity will need follow-up on subsequent imaging studies. Post dental extraction Thank you for the kind referral. If there are any questions and or concerns please do not hesitate to contact me at [phone]. Arturo Mcdonald MD Hematology/Medical Oncology [facility] spent a total of 30 minutes on the date of the service which included preparing to see the patient, [id number] patient care, completing clinical documentation, obtaining and/or reviewing separately obtained history, performing a medically appropriate examination, counseling and educating the pat ient/family/caregiver, and ordering medications, tests, or procedures. CC: Keaton Hu MD documented in this encounterAd[facility]05-[facility] History of Present illness Narrative* Patricia Dee MD - 10/16/2023 1:54 PM EDT Radiation Oncology - On Treatment Review (OTR) Note PATIENT NAME: Parvez Riggins PATIENT DIAGNOSIS: Rectal cancer, clinical stage IIIB T3a N2M0 COURSE: definitive, concurrent chemotherapy, and YANIV Current dose: 180 cGy in 1 fx Planned dose: 5040 cGy in 28 fx Status: Patient states there is no possibility she is at this time SUBJECTIVE: Here to start radiation, doing well. Denies fever. Denies dental pain. PHYSICAL EXAM: KPS: 100 General Appearance: Alert and oriented. No acute distress. Radiation dermatitis: none Abdomen: Soft. Nontender. Nondistended. Pelvic exam: deferred IMAGING/LAB RESULTS: None TOXICITY ASSESSMENT (CTC v4.0): Fatigue: grade 1 Weight loss: grade 0 - No weight loss Nausea: Grade 0 - No Symptoms Diarrhea: grade 0 - No symptoms Urinary frequency: grade 0 - No symptoms Dysuria: grade 0 - No symptoms Radiation Dermatitis: grade 0 - No symptoms Treatment chart checked: Yes Patient treatment site reviewed and verified:Yes Port films reviewed and current:Yes Medications started: None ASSESSMENT/PLAN: Patient starting radiation today. Plan of care and expectations again reviewed. Plan, MU calculations and conformal plan reviewed. Initial imaging including verification simulation with cbct, kvkv stereoscopic setup and then subsequent portal henriquez reviewed. First treatment given.Continue radiation as prescribed. Patricia Dee MD documented in this encounterAdams [facility]05-22-2024 Telephone encounter Note * Telephone Encounter - Pauline Fatima LSW - 10/10/2023 3:25 PM EDT SOCIAL WORK FOLLOW UP NOTE: [facility]ER CENTER Date of service:10/10/23 Parvez Riggins is being seen for a follow up social work visit. Today's visit includes: patient TOPICS ADDRESSED: transportation PLAN: Continue follow up as needed and Referral to community resource F/U APPOINTMENT: see below Assigned SW listed in Care Team tab: Yes SW called [facility] [phone] to arrange transportation for the Patient's upcoming radiation treatments. SW booked rides for 10/16/23-10/26/23. SW will contact [facility] in another week to secure rides the remaining radiation treatments 10/28-11/12. Confirmations for the secured rides are as follows.. Reference # Seat Scooper Machine time Return Home 10/15 [id number] 1600 10/16 [id number] 1240 1415 10/17 [id number] 1240 1415 10/18 [id number] 1240 1415 10/21 [id number] 1305 1445 10/22 [id number] 1305 1445 10/23 [id number] 1405 1545 10/24 17133 1235 1415 10/25 [id number] 1235 1415 SW called and updated Patient that rides have been scheduled. Patient is aware to be ready for pickup at her residence on 10/15 around 1pm. SW will remain available and will follow up as appropriate. VICENTE Nash [facility]05-22-2024 Miscellaneous Notes* Telephone Encounter - Pauline Fatima LSW - 10/10/2023 3:25 PM EDT SOCIAL WORK FOLLOW UP NOTE: CANCER CENTER Date of service:10/10/23 Parvez Riggins is being seen for a follow up social work visit. Today's visit includes: patient TOPICS ADDRESSED: transportation PLAN: Continue follow up as needed and Referral to community resource F/U APPOINTMENT: see below Assigned SW listed in Care Team tab: Yes SW called [facility] [phone] to arrange transportation for the Patient's upcoming radiation treatments. SW booked rides for 10/16/23-10/26/23. [facility] week to secure rides the remaining radiation treatments 10/28-11/12. Confirmations for the secured rides are as follows.. Reference # Seat Scooper Machine time Return Home 10/15 [id number] 1305 1600 10/16 [id number] 1240 1415 10/17 [id number] 1240 1415 10/18 [id number] 1240 1415 10/21 [id number] 1305 1445 10/22 [id number] 1305 1445 10/23 [id number] 1405 1545 10/24 [id number] 1235 1415 10/25 [id number] 1235 1415 SW called and updated Patient that rides have been scheduled. Patient is aware to be ready for pickup at her residence on 10/15 around 1pm. SW will remain available and will follow up as appropriate. VICENTE Nash documented in this encounterAdams [facility]05-22-2024 Telephone encounter Note * Telephone Encounter - Maria De Jesus Mark - 10/10/2023 10:22 AM EDT Parvez has been scheduled for her follow up and lab on 10-16-23 after her Radiation appt. Notified Pauline MILLER regarding this appt for her transportation. [facility]05-[facility] Miscellaneous Notes* Telephone Encounter - Maria De Jesus Mark - 10/10/2023 10:22 AM EDT Parvez has been scheduled for her follow up and lab on 10-16-23 after her Radiation appt. Notified Pauline MILLER regarding this appt for her transportation. * Telephone Encounter - More Madsen LPN - 10/08/2023 3:33 PM EDT I notified Parvez of her new start appointment 10/16/23 at 2:15. I also notified her that Anna isworking on scheduling a med onc follow up the same day as well. Pauline is aware Parvez will need transportation arranged for all treatment appointments. Anna will you please notify Pauline once Parvez's med onc appt is scheduled? Thanks More Madsen RN * Telephone Encounter - Anna Clay - 10/05/2023 11:31 AM EDT Currently working on patients appt - pending due to full schedules for both Jessica and Dr. Mcdonald. Anna Clay * Telephone Encounter - Jessica Eubanks PA-C - 10/05/2023 10:29 AM EDT She will need seen the day she starts radiation in order to start her xeloda and have baseline labsdone please. Jessica Eubanks PA-C * Telephone Encounter - More Madsen LPN - 10/05/2023 9:49 AM EDT Parvez had dental extractions yesterday per [facility] note, patient is cleared to start chemoradiation. Dr. Dee would like radiation therapy new start scheduled for 10/16/23. Patient should arrive at 2:15 for radiation therapy per RT Filomena. Does patient need transportation arranged? I left a message for Parvez to call the office to schedule radiation therapy new start. VERNON Carpenter is aware of the above and will arrange transportation if needed. Notify Filomena RT if transportation is needed so she can adjust pt's schedule if needed. CHAI/MMM: when would you like follow up scheduled? Thanks More Madsen RN documented in this encounterAd[facility]05-20-2024 Telephone encounter Note * Telephone Encounter - More Madsen LPN - 10/08/2023 3:33 PM EDT I notified Parvez of her new start appointment 10/16/23 at 2:15. I also notified her that Anna isworking on scheduling a med onc follow up the same day as well. Pauline is aware Parvez will need transportation arranged for all treatment appointments. Anna will you please notify Pauline once Parvez's med onc appt is scheduled? Thanks More Madsen RN [facility]05-17-20[facility] Telephone encounter Note* Telephone Encounter - Anna Clay - 10/05/2023 11:31 AM EDT Currently working on patients appt - pending due to full schedules for both Jessica and Dr. Mcdonald. Anna Clay [facility]05-17-2024 Telephone encounter Note* Telephone Encounter - Jessica Eubanks PA-C - 10/05/2023 10:29 AM EDT She will need seen the day she starts radiation in order to start her xeloda and have baseline labsdone please. Jessica Eubanks PA-C [facility]05-[facility] Telephone encounter Note* Telephone Encounter - More Madsen LPN - 10/05/2023 9:49 AM EDT Parvez had dental extractions yesterday per [facility] note, patient is cleared to start chemoradiation. Dr. Dee would like radiation therapy new start scheduled for 10/16/23. Patient should arrive at 2:15 for radiation therapy per RT Filomena. Does patient need transportation arranged? I left a message for Parvez to call the office to schedule radiation therapy new start. VERNON Carpenter is aware of the above and will arrange transportation if needed. Notify Filomena RT if transportation is needed so she can adjust pt's schedule if needed. CHAI/MMM: when would you like follow up scheduled? Thanks More Madsen RN [facility]05-16-[facility] History of Present illness Narrative* Kelsy Saleh, DDS - 10/04/2023 4:16 PM EDT DENTISTRY, ORAL SURGERY, & MAXILLOFACIAL PROSTHETICS 10/04/2023 Parvez Riggins [id number] HISTORY OF PRESENT ILLNESS: 68 year old female patient presents for dental extractions of tooth # 29 and 30. Patient is scheduled to begin chemotherapy for rectal cancer. Her chemotherapy is on hold pending resolution of dentalinfection. ACTIVE PROBLEM LIST Hypertension Diabetes (Hcc) Current Outpatient Medications on File Prior to Visit Medication Sig atorvastatin (LIPITOR) 40 mg tablet Take 40 mg by mouth daily at bedtime. clobetasol (TEMOVATE) 0.05 % cream Apply 1 Application to affected area two times a day. metoprolol tartrate, short acting, (LOPRESSOR) 50 mg tablet Take 50 mg by mouth two times a day. Mirtazapine (REMERON) 7.5 mg tablet Take 7.5 mg by mouth once daily. JANUMET XR 50-1,000 mg TM24 Take 1 tablet by mouth every afternoon. spironolactone (ALDACTONE) 25 mg tablet Take 50 mg by mouth every morning. cannabidiol, CBD, (CANNABIDIOL ORAL) Take 10 mg by mouth daily at bedtime. prochlorperazine (COMPAZINE) 10 mg tablet Take 1 tablet by mouth every 6 hours as needed. ondansetron (ZOFRAN) 8 mg tablet Take 1 tablet by mouth every 8 hours as needed for nausea/vomiting. capecitabine (XELODA) 500 mg tablet Take 3 tablets (1,500 mg) by mouth two times a day with food, on days of radiation only (MON-FRI only). aspirin, enteric coated (ASPIRIN, ENTERIC COATED) 81 mg EC tablet Take 81 mg by mouth every other day. busPIRone (BUSPAR) 10 mg tablet Take by mouth. ferrous sulfate 325 mg (65 mg iron) tablet Take 325 mg by mouth every 48 hours. meclizine (ANTIVERT) 25 mg tab Take by mouth at bedtime as needed. nystatin (MYCOSTATIN) ointment Apply 1 Application to affected area. insulin glargine (LANTUS SOLOSTAR U-100 INSULIN) 100 unit/mL (3 mL) Inject 80 Units subcutaneously daily at bedtime. irbesartan (AVAPRO) 75 mg tablet Take 75 mg by mouth daily at bedtime. insulin lispro (HUMALOG KWIKPEN INSULIN) 100 unit/mL inpn Inject subcutaneously as directed. amLODIPine (NORVASC) 10 mg tablet Take 10 mg by mouth once daily. Acetaminophen 500 mg cap Take 500 mg by mouth as needed. No current facility-administered medications on file prior to visit. Review of patient's allergies indicates: ALLERGIES Allergen Reactions Codeine Other: See Comments Nausea Tramadol Vomiting Pain status: No 0 on a scale of 0 to 10 Rx: None one hour prior to dental appointment. INFORMED CONSENT: The procedure including risks, benefits, options and personnel performing the procedure was discussed with the patient. Parvez Riggins expressed understanding and agreed to proceed verbally and written. UNIVERSAL PROTOCOL / SAFETY CHECKLIST Sign in Communication: Completed Time Out: Team Confirms the Correct Patient, Correct Procedure, Correct Site and Site Marking, Correct Position (if applicable). Time: 3:30pm Affirmation of Time Out: YES Sign Out Discussion: Completed UNIVERSAL PROTOCOL / SAFETY CHECKLIST Procedure to be Performed: Extractions of #29 and 30 Sign In: A Moment of CARE was completed. Personnel directly involved with the procedure wore the appropriate PPE (Personal Protective Equipment). Patient/Surrogate Stated/Verified: PATIENT VERIFIED(optional for EMERGENT procedures): Patient name, Date of , Relevant allergies, and The intended procedure Time Out Communication: Intended patient and procedure match the source documents. Consent documented and matches the intended procedure. Sign Out: SIGN OUT (optional for EMERGENT procedures): No specimen collected. No instruments, equipment or retained foreign bodies applicable. Post-procedure follow-up management communicated and Plan of Care Visit completed when applicable. Kelsy Saleh DDS OBJECTIVE: Anesthetic: Topical anesthetic given. 20% benzocaine topical anesthetic gel 2 carpules of (1.8mL) 4% Articaine with 1/100,000 epinephrine via infiltration 2 carpules of (1.7mL) 2% Xylocaine with 1/100,000 epinephrine via infiltration and KARLEY Procedure: Mucoperiosteal tissue relieved surrounding teeth # 29 and 30. Teeth # 29 and 30, elevated, and extracted atraumatically. Curetted sockets. Gelfoam placed. 3-0 chromic gut sutures in interrupted fashion to suture the socket(s). Hemostasis was achieved. ASSESSMENT: Patient tolerated the procedure well. Instructions given orally and in writing. PLAN: Follow-up: No antibiotics indicated. Soft diet, no straws, and no spitting x1 week. Patient will return as needed The patient is cleared to proceed with chemotherapy from a dental/oral surgery perspective. Kelsy Saleh DDS documented in this encounterAdams [facility]05-16-2024 History of Present illness Narrative* Rafael Cabrales DMD - 10/04/2023 3:23 PM EDT Images from the original note were not included. Head and Neck [place] [facility], Oral Surgery, & Maxillofacial Prosthetics - INITIAL MEDICAL VISIT PATIENT: Parvez Riggins Referred by: Dr. Patricia Dee Medical Diagnosis: Rectal cancer ICD-10: C20 CHIEF COMPLAINT: Tooth infection HISTORY OF PRESENT ILLNESS: Parvez Riggins is a 68 year old female being seen for prosthodontic consultation at the request of Dr. Sudeep Dee to address painful lower right teeth. PMH significant for depression, DM2, recently diagnosed rectal cancer, clinical stage IIIB [id number],previous history of vulvar cancer. She is being worked up for radiation with concurrent chemotherapy (Xeloda). She had a toothache started about a month ago and presented to the ED 09/14/23 where incision and drainage was performed with some relief. She was placed on antibiotics course finished lastWednday. Pain currently rated as 2/10 with exacerbation when eating. She has had difficulty beingseen by multiple dentists in her community for definitive treatment of the infected teeth #29 and 30. Her chemotherapy is on hold pending resolution of dental infection. [facility] and management. Here today with her daughter. PROBLEM LIST: ACTIVE PROBLEM LIST Hypertension Diabetes (Hcc) CURRENT MEDICATIONS: Current Outpatient Medications on File Prior to Visit Medication Sig atorvastatin (LIPITOR) 40 mg tablet Take 40 mg by mouth daily at bedtime. clobetasol (TEMOVATE) 0.05 % cream Apply 1 Application to affected area two times a day. metoprolol tartrate, short acting, (LOPRESSOR) 50 mg tablet Take 50 mg by mouth two times a day. Mirtazapine (REMERON) 7.5 mg tablet Take 7.5 mg by mouth once daily. JANUMET XR 50-1,000 mg TM24 Take 1 tablet by mouth every afternoon. spironolactone (ALDACTONE) 25 mg tablet Take 50 mg by mouth every morning. cannabidiol, CBD, (CANNABIDIOL ORAL) Take 10 mg by mouth daily at bedtime. prochlorperazine (COMPAZINE) 10 mg tablet Take 1 tablet by mouth every 6 hours as needed. ondansetron (ZOFRAN) 8 mg tablet Take 1 tablet by mouth every 8 hours as needed for nausea/vomiting. capecitabine (XELODA) 500 mg tablet Take 3 tablets (1,500 mg) by mouth two times a day with food, on days of radiation only (MON-FRI only). aspirin, enteric coated (ASPIRIN, ENTERIC COATED) 81 mg EC tablet Take 81 mg by mouth every other day. busPIRone (BUSPAR) 10 mg tablet Take by mouth. ferrous sulfate 325 mg (65 mg iron) tablet Take 325 mg by mouth every 48 hours. meclizine (ANTIVERT) 25 mg tab Take by mouth at bedtime as needed. nystatin (MYCOSTATIN) ointment Apply 1 Application to affected area. insulin glargine (LANTUS SOLOSTAR U-100 INSULIN) 100 unit/mL (3 mL) Inject 80 Units subcutaneously daily at bedtime. irbesartan (AVAPRO) 75 mg tablet Take 75 mg by mouth daily at bedtime. insulin lispro (HUMALOG KWIKPEN INSULIN) 100 unit/mL inpn Inject subcutaneously as directed. amLODIPine (NORVASC) 10 mg tablet Take 10 mg by mouth once daily. Acetaminophen 500 mg cap Take 500 mg by mouth as needed. No current facility-administered medications on file prior to visit. ALLERGIES: ALLERGIES Allergen Reactions Codeine Other: See Comments Nausea Tramadol Vomiting CLINICAL EXAMINATION: Extraoral, Head and Neck exam: General: Well appearing, pleasant and cooperative Extraoral swelling or erythema:NO Parotid and submandibular glands soft, nonpainful to palpation bilaterally: YES Lymphadenopathy: NO V1, V2, V3, CN VII intact bilaterally: YES Mandibular openinmm without trismus Intraoral Soft Tissues: Moist mucous membranes Normal salivary quantity and quality Erythema mandibular right posterior vestibule #29-30 region with tenderness on palpation. No swelling, purulence, or bleeding Dentition: (limited exam) #29 and 30 large cavitated lesions with caries. #30 has a large resin build up present. The teeth are moderately painful when percussed and there is tenderness of the alveolar ridge when palpated. Probing depths <4mm with bleeding, no mobility Oral hygiene is poor and there are several other teeth with caries notably #3. #21 has an incisal buccal cavitation without caries. Radiographic examination: Panoramic radiograph and peripaical images #29,30 Periapical radiolucencies #29 and 30. #3 and 21 also have significant areas of tooth structure loss ASSESSMENT/PLAN: 68 year old female here for treatment of active dental infection prior to starting chemotherapy forrectal cancer. Teeth #29 and 30 have large cavitations with periapical infections. They were previously associated with an area of vestibular swelling and pain drained in the ED. Unable to see a local dentist for various reasons including panic attack at a recent visit with [facility] dentist. Last dental visit was with an oral surgeon for extraction #31 beginning of this year. Reviewed records- CBC 08/20/2023, BMP 08/20/2023 08/01/2023 06/21/2023. Teeth #29 and 30 have active infections. Extraction indicated. Can see resident provider for procedure today. Explained the plan to the patient and her daughter. They are in agreement and wish to proceed Plan: -Extraction #29 and 30 -Start Xeloda per Medical Oncology The opinions rendered will be communicated back to the referring provider via shared electronic medical record. A total of 33 minutes was spent on this visit reviewing previous notes, reviewing imaging, coordinating care with other physicians, counseling the patient on expectations and limitations, & documentation Rafael Cabrales DMD [facility] Maxillofacial Prosthetics documented in this encounterAd[facility]-14-[facility]24 Telephone encounter Note * Telephone Encounter - Pauline Fatima LSW - 10/02/2023 9:49 AM EDT SOCIAL WORK FOLLOW UP NOTE: [facility] Date of service:10/02/23 Parvez Riggins is being seen for a follow up social work visit. Today's visit includes: patient TOPICS ADDRESSED: transportation PLAN: Continue follow up as needed F/U APPOINTMENT: 10/04/23 [facility] ([place]) Assigned PAUL listed in Care Team tab: Yes SW called Patient to follow up on whether or not she needs a ride for her Dentistry appointment on 10/03 in [place]. Patient states that her daughter will drive her to this appointment. SW reached out to [employer] cab and cancelled the previously scheduled ride. SW will remain available and will follow up as appropriate. VICENTE Nash [facility]05-14-2024 Miscellaneous Notes* Telephone Encounter - Pauline Fatiam LSW - 10/02/2023 9:49 AM EDT SOCIAL WORK FOLLOW UP NOTE: [facility] Date of service:10/02/23 Parvez Riggins is being seen for a follow up social work visit. Today's visit includes: patient TOPICS ADDRESSED: transportation PLAN: Continue follow up as needed F/U APPOINTMENT: 10/04/23 [facility] ([place]) Assigned PAUL listed in Care Team tab: Yes SW called Patient to follow up on whether or not she needs a ride for her Dentistry appointment on 10/03 in [place]. Patient states that her daughter will drive her to this appointment. SW reached out to [employer] cab and cancelled the previously scheduled ride. SW will remain available and will follow up as appropriate. VICENTE Nash documented in this encounterAd[facility]05-13-2024 Telephone encounter Note * Telephone Encounter - Pauline Fatima LSW - 10/01/2023 2:42 PM EDT SOCIAL WORK FOLLOW UP NOTE: [facility] Date of service:10/01/23 Parvez Riggins is being seen for a follow up social work visit. Today's visit includes: patient TOPICS ADDRESSED: transportation PLAN: Continue follow up as needed F/U APPOINTMENT: 10/04/23 [facility] ([place]) Assigned PAUL listed in Care Team tab: Yes Patient left a VM stating that she has a ride to her appointment on 10/03 ([facility]). SW calledPatient back to confirm that she has secured her own ride. Patient states that her daughter or son-in-law will take her to her appointment on 10/03. SW shared that a taxi cab ride was arranged for herthrough [employer]. Patient then states let me call my daughter to make sure she can take me . SW will hold off on cancelling the taxi cab ride and will wait to hear back from the Patient about her transportation needs. VICENTE Nash [facility]05-13-2024 Miscellaneous Notes* Telephone Encounter - Pauline Fatima LSW - 10/01/2023 2:42 PM EDT SOCIAL WORK FOLLOW UP NOTE: [facility] Date of service:10/01/23 Parvez Riggins is being seen for a follow up social work visit. Today's visit includes: patient TOPICS ADDRESSED: transportation PLAN: Continue follow up as needed F/U APPOINTMENT: 10/04/23 [facility] ([place]) Assigned PAUL listed in Care Team tab: Yes Patient left a VM stating that she has a ride to her appointment on 10/03 ([facility]). SW calledPatient back to confirm that she has secured her own ride. Patient states that her daughter or son-in-law will take her to her appointment on 10/03. SW shared that a taxi cab ride was arranged for herthrough [employer]. Patient then states let me call my daughter to make sure she can take me . SW will hold off on cancelling the taxi cab ride and will wait to hear back from the Patient about her transportation needs. VICENTE Nash documented in this encounterAdams [facility]05-08-2024 History of Present illness Narrative* Pauline Fatima LSW - 09/26/2023 1:58 PM EDT Social Work Problem Referral Note INFORMATION/REFERRAL : Parvez Riggins 68 year old female was referred by nurse Nichole Mackenzie RN to [facility] Work for the following reason(s): transportation INTERVENTION: Information & Referral Service Co-ordination IDENTIFIED PROBLEMS/NEEDS: Transportation F/U APPOINTMENT: 10/04/[address] Cabrales ([facility]) Assigned PAUL listed in Care Team tab: Yes Patient has not been able to secure an appointment with a local Dentist nor an Oral Surgeon. Patient was referred to [facility]. Appointment made for 10/04/[address] Cabrales. Patient has several transportation barriers which include her car is broke down , there is no one who can drive her appointment in [place],.she does not have the funds to pay for a taxi cab and her health insurancedoes not provide rides greater than 50 miles from the her residence. SW contacted [employer] and secured a ride for this Patient. Patient will be picked up from her residence between 1pm and 1:15pm. Patient's return home ride is scheduled for 4:15pm. PAUL contacted [employer] and they are agreeable to pay for the taxi cab fares. PAUL updated CIPRIANO Mackenzie on the above. SW called and left a VM for the Patient. SW will remain available and will follow up as appropriate. VICENTE Nash documented in this encounterAdams [facility]05-08-2024 Telephone encounter Note * Telephone Encounter - Little Bowens RN - 09/26/2023 1:13 PM EDT Radiation was able to get the patient in with [facility] on 10/03. Little Bowens RN [facility] Work Phone: [phone] Miscellaneous Notes* Telephone Encounter - Little Bowens RN - 09/26/2023 1:13 PM EDT Radiation was able to get the patient in with [facility] on 10/03. Little Bowens RN * Telephone Encounter - Arturo Mcdonald MD - 09/26/2023 11:24 AM EDT So what is the plan * Telephone Encounter - Little Bowens RN - 09/24/2023 3:27 PM EDT Spoke with Crystal at Dr Mccoy's office and she states they have not received a referral on this patient. She states they are at least 3 weeks our for a regular visit and double that for any procedures. Call placed to Dr Magana's office and they will re-fax this referral. Dr Magana's human resources office assistant states that when patient was there over 2 years ago she needed to have 2 upper teeth and 2 lower teeth extracted as well as a root canal to be done, and pt never followed up with anyone after. Please advise Little Bowens RN * Telephone Encounter - Little Bowens RN - 09/24/2023 3:09 PM EDT Call received from pt stating she wasn't able to have her tooth looked at today. Pt states she was referred to an oral surgeon and doesn't have an appointment scheduled with them yet. Call placed to her dentist, Dr Magana in [place] and spoke with Madeleine. She states pt hasn't been seen there since 05/2021 and needs to have a comprehensive appointment with xrays since she hasn't been seen in over 2years. They also referred her to oral surgeon, Dr Mccoy, due to the need of having either a tooth extracted or root canal. Madeleine states that the last time pt was in their office she didn't tolerate the tooth cleaning very well, and that an oral surgeon will need to perform the procedure she willneed to have done. Call placed to Dr Mccoy's office's ([phone], [place] [phone]) and message left requesting them to call our office back to see if pt has an appointment and how long out this will be. Pt was very upset on the phone and having anxiety. Pt states several times there's so much going on right now and I don't think I can do this anymore. My car is broke down and needs fixed and I don't have any money to pay for this. Pt notes that her car has 95,000 miles on it and it's falling apart and she doesn't have a reliable way to get here. Pt's call was transferred to [facility] to address hercmarielenacershayna. Little Bowens RN documented in this encounterAd[facility]05-08-2024 Telephone encounter Note * Telephone Encounter - Claire Moe - 09/26/2023 12:56 PM EDT Called pt and scheduled dental yumiko 10/03 per request [facility]05-08-2024 Miscellaneous Notes* Telephone Encounter - Claire Moe - 09/26/2023 12:56 PM EDT Called pt and scheduled dental yumiko 10/03 per request * Telephone Encounter - Nini Neri RN - 09/26/2023 12:52 PM EDT Tiff- can you please assist in getting her set up [facility]? I did route to their dental pool and put the order in as urgent referral, so hopefully it will be picked up quickly. Pauline will need to know about all appts as well to assist with transport. Nini Neri RN * Telephone Encounter - Nini Neri RN - 09/26/2023 12:06 PM EDT Call placed to pt to check status. She has not had any luck making any dental appts and is very frustrated. She stated I'm just going to do nothing and going to . After several minutes of discussion, patient stated that she was just very upset that her dentist 'for years' will not see her. Shehad issues one time there with anxiety and does not understand why they won't help her. She has multiple other social issues going on as well. Dr Dee would like to refer pt to somewhere in the clinic for her necessary dental work [facility]. I spoke to Pauline and we will have her work and assist with transportation for these visits as well. Pt is in agreement with this and is very thankful for the help. She made sure to say multiple times howgreat everyone through [facility] has been with her thru all of this and everyone else is the problem. JEFE- please sign pended dental order. PAULINE- pt will not be starting RT for Sunday. Keeping you up to date so you can assist with these appts that will be scheduled. See below note re: dental procedure done in ER. Records from Care Everywhere system. Dental Intervention (09/14/2023 6:17 AM EDT) Results - Dental Intervention (09/14/2023 6:17 AM EDT) Narrative Christian Bennett DO - 09/14/2023 6:17 AM EDT Christian Bennett DO 09/14/2023 6:20 AM Dental Intervention Date/Time: 09/14/2023 6:17 AM Performed by: Christian Bennett DO Authorized by: Christian Bennett DO Consent: Consent obtained: Verbal Consent given by: Patient Risks discussed: Allergic reaction, hematoma, intravascular injection, infection, nerve damage, pain, swelling and unsuccessful block Alternatives discussed: Delayed treatment and referral [place] protocol: Procedure explained and questions answered to patient or proxy's satisfaction: yes Relevant documents present and verified: yes Test results available: yes Imaging studies available: yes Required blood products, implants, devices, and special equipment available: yes Site/side marked: yes Immediately prior to procedure, a time out was called: yes Patient identity confirmed: Verbally with patient and arm band Indications: Indications: dental abscess and dental pain Location: Block type: Inferior alveolar Laterality: Right Procedure details: Topical anesthetic: Benzocaine spray Syringe type: Controlled syringe Needle gauge: 27 G Anesthetic injected: Lidocaine 1% w/o epi Injection procedure: Anatomic landmarks identified, introduced needle, anatomic landmarks palpated and negative aspiration for blood Post-procedure details: Outcome: Anesthesia achieved Procedure completion: Tolerated well, no immediate complications documented in this encounterAdams [facility] Center05-08-2024 Telephone encounter Note * Telephone Encounter - Nini Neri RN - 09/26/2023 12:52 PM EDT Tiff- can you please assist in getting her set up [facility]? I did route to their dental pool and put the order in as urgent referral, so hopefully it will be picked up quickly. Pauline will need to know about all appts as well to assist with transport. Nini Neri RN [facility]05-08-2024 Telephone encounter Note* Telephone Encounter - Nini Neri RN - 09/26/2023 12:06 PM EDT Call placed to pt to check status. She has not had any luck making any dental appts and is very frustrated. She stated I'm just going to do nothing and going to . After several minutes of discussion, patient stated that she was just very upset that her dentist 'for years' will not see her. Shehad issues one time there with anxiety and does not understand why they won't help her. She has multiple other social issues going on as well. Dr Dee would like to refer pt to somewhere in the clinic for her necessary dental work [facility]. I spoke to Pauline and we will have her work and assist with transportation for these visits as well. Pt is in agreement with this and is very thankful for the help. She made sure to say multiple times howgreat everyone through [facility] has been with her thru all of this and everyone else is the problem. JEFE- please sign pended dental order. PAULINE- pt will not be starting RT for Sunday. Keeping you up to date so you can assist with these appts that will be scheduled. See below note re: dental procedure done in ER. Records from Care Everywhere system. Dental Intervention (09/14/2023 6:17 AM EDT) Results - Dental Intervention (09/14/2023 6:17 AM EDT) Narrative Christian Bennett DO - 09/14/2023 6:17 AM EDT Christian Bennett DO 09/14/2023 6:20 AM Dental Intervention Date/Time: 09/14/2023 6:17 AM Performed by: Christian Bennett DO Authorized by: Christian Bennett DO Consent: Consent obtained: Verbal Consent given by: Patient Risks discussed: Allergic reaction, hematoma, intravascular injection, infection, nerve damage, pain, swelling and unsuccessful block Alternatives discussed: Delayed treatment and referral [place] protocol: Procedure explained and questions answered to patient or proxy's satisfaction: yes Relevant documents present and verified: yes Test results available: yes Imaging studies available: yes Required blood products, implants, devices, and special equipment available: yes Site/side marked: yes Immediately prior to procedure, a time out was called: yes Patient identity confirmed: Verbally with patient and arm band Indications: Indications: dental abscess and dental pain Location: Block type: Inferior alveolar Laterality: Right Procedure details: Topical anesthetic: Benzocaine spray Syringe type: Controlled syringe Needle gauge: 27 G Anesthetic injected: Lidocaine 1% w/o epi Injection procedure: Anatomic landmarks identified, introduced needle, anatomic landmarks palpated and negative aspiration for blood Post-procedure details: Outcome: Anesthesia achieved Procedure completion: Tolerated well, no immediate complications [facility]05-08-[facility] Telephone encounter Note* Telephone Encounter - Arturo Mcdonald MD - 09/26/2023 11:24 AM EDT So what is the plan [facility]05-06-2024 Telephone encounter Note* Telephone Encounter - Pauline Fatima LSW - 09/24/2023 3:57 PM EDT SOCIAL WORK FOLLOW UP NOTE: [facility] Date of service:09/24/23 Parvez Riggins is being seen for a follow up social work visit. Today's visit includes: patient TOPICS ADDRESSED: coping/support, finances, and community resources PLAN: Continue follow up as needed Assigned SW listed in Care Team tab: Yes AKANKSHA Fitch updates this SW that Patient was not able to get the necessary tooth extraction todayin order to begin treatment on 10/01/23. Please see RNCC's telephone encounter for more information. SW spoke with Patient. She expresses distress with her current financial situation. Patient's car is in need of repair. Patient request that this SW secure her a ride to all of her radiation/chemotherapy appointments. SW will contact her health insurance provider [facility] [employer] to schedule rides. SW will wait to schedule any rides until more information is available about whether or not her dental needs can be done soon. Patient states that she does not have any money to pay of out of pocket for any of her dental needs. SW will reach out to [employer] to see if they are willing or able to assist with OOP dental expenses. SW will remain available and will follow up as appropriate. VICENTE Nash [facility]05-06-2024 Miscellaneous Notes* Telephone Encounter - Pauline Fatima LSW - 09/24/2023 3:57 PM EDT SOCIAL WORK FOLLOW UP NOTE: [facility] Date of service:09/24/23 Parvez Riggins is being seen for a follow up social work visit. Today's visit includes: patient TOPICS ADDRESSED: coping/support, finances, and community resources PLAN: Continue follow up as needed Assigned SW listed in Care Team tab: Yes AKANKSHA Fitch updates this SW that Patient was not able to get the necessary tooth extraction todayin order to begin treatment on 10/01/23. Please see RNCC's telephone encounter for more information. SW spoke with Patient. She expresses distress with her current financial situation. Patient's car is in need of repair. Patient request that this SW secure her a ride to all of her radiation/chemotherapy appointments. SW will contact her health insurance provider [facility] [employer] to schedule rides. SW will wait to schedule any rides until more information is available about whether or not her dental needs can be done soon. Patient states that she does not have any money to pay of out of pocket for any of her dental needs. SW will reach out to [employer] to see if they are willing or able to assist with OOP dental expenses. SW will remain available and will follow up as appropriate. VICENTE Nash documented in this encounterAd[facility] Center05-06-2024 Telephone encounter Note * Telephone Encounter - Little Bowens RN - 09/24/2023 3:27 PM EDT Spoke with Crystal at Dr Mccoy's office and she states they have not received a referral on this patient. She states they are at least 3 weeks our for a regular visit and double that for any procedures. Call placed to Dr Magana's office and they will re-fax this referral. Dr Magana's human resources office assistant states that when patient was there over 2 years ago she needed to have 2 upper teeth and 2 lower teeth extracted as well as a root canal to be done, and pt never followed up with anyone after. Please advise Little Bowens RN [facility]05-06-20[facility] Telephone encounter Note* Telephone Encounter - Little Bowens RN - 09/24/2023 3:09 PM EDT Call received from pt stating she wasn't able to have her tooth looked at today. Pt states she was referred to an oral surgeon and doesn't have an appointment scheduled with them yet. Call placed to her dentist, Dr Magana in [place] and spoke with Madeleine. She states pt hasn't been seen there since 05/2021 and needs to have a comprehensive appointment with xrays since she hasn't been seen in over 2years. They also referred her to oral surgeon, Dr Mccoy, due to the need of having either a tooth extracted or root canal. Madeleine states that the last time pt was in their office she didn't tolerate the tooth cleaning very well, and that an oral surgeon will need to perform the procedure she willneed to have done. Call placed to Dr Mccoy's office's ([phone], [place] [phone]) and message left requesting them to call our office back to see if pt has an appointment and how long out this will be. Pt was very upset on the phone and having anxiety. Pt states several times there's so much going on right now and I don't think I can do this anymore. My car is broke down and needs fixed and I don't have any money to pay for this. Pt notes that her car has 95,000 miles on it and it's falling apart and she doesn't have a reliable way to get here. Pt's call was transferred to [facility] to address hillcershayna. Little Bowens RN [facility]05-01-2024 Telephone encounter Note* Telephone Encounter - Little Bowens RN - 09/19/2023 10:26 AM EDT Pt will be receiving treatment with a curative intent, therefore will need a survivorship visit. Little Bowens RN [facility]05-01-2024 Miscellaneous Notes* Telephone Encounter - Little Bowens RN - 09/19/2023 10:26 AM EDT Pt will be receiving treatment with a curative intent, therefore will need a survivorship visit. Little Bowens RN documented in this encounterAdams County [facility] Center05-01-2024 Telephone encounter Note * Telephone Encounter - Little Bowens RN - 09/19/2023 7:56 AM EDT Yes, Pauline has been working with her for a couple of months now. Little Bowens RN [facility] Work Phone: 1(531) 595-382205-01-2024 Miscellaneous Notes* Telephone Encounter - Little Bowens RN - 09/19/2023 7:56 AM EDT Yes, Pauline has been working with her for a couple of months now. Little Bowens RN * Telephone Encounter - Arturo Mcdonald MD - 09/18/2023 10:18 PM EDT Is she seeing Pauline? * Telephone Encounter - Little Bowens RN - 09/18/2023 3:59 PM EDT Pt was in today for education and a SIM. Pt states she is overwhelmed with everything going on. States she's been in contact with our social insurance analyst regarding maybe needing help with transportation off and on. Pt states her car's check engine light just came on today so she needs to figure out what's wrong with it and if it's able to be fixed. Pt states her 91 year old father relies heavily on herto help take him food and medications to the assisted living where he resides, so she's asking her brother to help if possible. Pt also notes that she was in the ER late last week for an infected tooth, the ER doctor cut open her gum line and drained it, and she has an appointment with her dentist,Dr Magana in [place] on 09/23 to either get a root canal or have the tooth extracted. Pt states she's been struggling lately to take her medication appropriately, and is working with her pharmacy and PCP on different options to try to organize her a little more with this. Majo: can you get records from recent ER visit please. Thanks, Little Bowens RN documented in this encounterAd[facility]04-30-2024 Telephone encounter Note * Telephone Encounter - Arturo Mcdonald MD - 09/18/2023 10:18 PM EDT Is she seeing Pauline? [facility] Telephone encounter Note* Telephone Encounter - Little Bowens RN - 09/18/2023 4:49 PM EDT Opened in error Little Bowens RN [facility] Work Phone: [phone]) [phone] Miscellaneous Notes* Telephone Encounter - Little Bowens RN - 09/18/2023 4:49 PM EDT Opened in error Little Bowens RN documented in this encounterAdams [facility]04-30-2024 Telephone encounter Note * Telephone Encounter - Little Bowens RN - 09/18/2023 3:59 PM EDT Pt was in today for education and a SIM. Pt states she is overwhelmed with everything going on. States she's been in contact with our social insurance analyst regarding maybe needing help with transportation off and on. Pt states her car's check engine light just came on today so she needs to figure out what's wrong with it and if it's able to be fixed. Pt states her 91 year old father relies heavily on herto help take him food and medications to the assisted living where he resides, so she's asking her brother to help if possible. Pt also notes that she was in the ER late last week for an infected tooth, the ER doctor cut open her gum line and drained it, and she has an appointment with her dentist,Dr Magana in [place] on 09/23 to either get a root canal or have the tooth extracted. Pt states she's been struggling lately to take her medication appropriately, and is working with her pharmacy and PCP on different options to try to organize her a little more with this. Majo: can you get records from recent ER visit please. Thanks, Little Bowens, RN [facility]04-30-2024 History of Present illness Narrative* Pauline Fatima LSW - 09/18/2023 3:33 PM EDT Assessment Completed previously on 07/11/23 SOCIAL WORK FOLLOW UP NOTE: [facility] Date of service:09/18/23 Parvez Riggins is being seen for a follow up social work visit. Today's visit includes: patient TOPICS ADDRESSED: coping/support, mental health needs, community resources, and transportation PLAN: Assist with financial support applications, Continue follow up as needed , Provide emotional support to patient/family, and Monitor patient response to treatment F/U APPOINTMENT: PRN Assigned SW listed in Care Team tab: Yes SW met with the above listed Patient in the radiation waiting area. SW inquired if the Patient had turned in her paperwork to the [employer]. Patient states that she lost the paperwork. SW offered to complete the paperwork on her behalf and she was agreeable. Patient was given contact information for the [employer] and was told to call them in a few days to complete the telephone interview portion of the intake application. Patient states that she will do so. Patient mentioned that her check engine light is on in her car. Patient inquired about transportation options. SW shared that her insurance will provide a ride if it is no greater that [address]) from her residence. Patient was unsure if she needed transportation at this time. SW asked Patient reach back out to this if she is not able to transport herself to any of her upcoming appointments. Patient verbalizes understanding and is agreeable. [facility] Fund application was completed and faxed. Patient talked with this SW about current stressors (caring for an elderly father who lives in an Assisted Living Facility, recent dental needs, car issues). SW provided active listening and psychosocial support. SW will remain available and will follow up as appropriate. VICENTE Nash documented in this encounterAd[facility] History of Present illness Narrative* Little Bowens RN - 09/18/2023 2:17 PM EDT ORAL ANTI-CANCER AGENTS EDUCATION patient here today for oral medication education of capecitabine (Xeloda) for Colon / Rectal Cancer READINESS TO LEARN Cognitive Ability: Alert and oriented Motivation to Learn: Interested, Eager Family Support: pt states she has a handicapped friend that is helping her through this. Instruction Provided to: Patient Patient learns best by: Multiple Methods Factors affecting learning: Emotional Factors: Anxious Fearful Overwhelmed Physical limitation affecting learning: None GONZÁLES ASSESSMENT: 1.) Verified that patient knows that the oral agents are for cancer and are taken by mouth. Yes 2.) Medication review completed during visit. Yes 3.) Patient is able to swallow pills. Yes 4.) Patient is able to read the drug label/information. Yes 5.) Patient is able to open the medication bottles and packages. Yes 6.) Has patient taken other pills for cancer? No 7.) Is patient experiencing any symptoms that would affect their ability to keep down pills, for example nausea or vomiting? No 8.) Verified that patient understands prescription delivery, benefit investigation and refill process. Yes Pt will be picking up her medication from our pharmacy. She has a $0 copay DRUG-SPECIFIC EDUCATION: 1.) Verified patient knows the drug name. Yes 2.) Verified patient understands the dose and schedule of oral anti cancer agent. Yes 3.) Verified patient knows what to do if a medication dose is missed. Yes 4.) Verified patient understands where to store the drug. Yes 5.) Verified patient understands potential side effects and how to manage them. Yes 6.)Verified patient understands handling precautions of oral anti cancer agent. Yes 7.) Verified patient was given written instructions and understands when and whom to call with questions. Yes 8.) Verified patient understands where and how to return drug. Yes 9.) Verified patient received drug specific adult education handout and neutropenic wallet card Yes Pt states she is overwhelmed with everything going on. States she's been in contact with our socialworker regarding maybe needing help with transportation. Pt states her car's check engine light just came on so she needs to figure out what's wrong with it and if it's able to be fixed. Pt states her 91 year old father relies heavily on her to help take him food and medications to the assisted living where he resides, so she's asking her brother to help if possible. Pt also notes that she was inthe ER late last week for an infected tooth, the ER doctor opened it and drained it, and she has anappointment with her dentist, Dr Magana in [place] on 09/23 to either get a root canal or have the tooth extracted. EVALUATE: The patient demonstrated an understanding of all the above education using the teach-back method. Yes Instructed to call us with any questions, concerns, and/or unresolved symptoms. Will continue to follow up and provide reinforcement of teaching topics as needed. Little Bowens, RN documented in this encounterAdams County [facility] Center04-30-2024 Telephone encounter Note * Telephone Encounter - Arturo Mcdonald MD - 09/18/2023 10:36 AM EDT She is getting Xeloda and radiation [facility]04-30[facility] Miscellaneous Notes* Telephone Encounter - Arturo Mcdonald MD - 09/18/2023 10:36 AM EDT She is getting Xeloda and radiation * Telephone Encounter - Sindy Florence RPh - 09/18/2023 9:09 AM EDT What is she to receive on 09/24/23? From a chemo standpoint I see she will be getting capecitabine + radiation. I see that AVS stated: Return for labs when she is scheduled for a SIM, Chemo teach, Jessica exam and chemo and labs 2 weeks . I think the chemo was a mis-type?? Thanks Shad Florence PharmD, BCOP * Telephone Encounter - Janis Suarez RN - 09/18/2023 8:51 AM EDT Pt is scheduled [address] tx[address] Please place orders in beacon to prevent delay in tx. Thank you, Janis Suarez RN documented in this encounterAdams County [facility] Center04-30-2024 Telephone encounter Note * Telephone Encounter - Sindy Florence [facility] - 09/18/2023 9:09 AM EDT What is she to receive on 09/24/23? From a chemo standpoint I see she will be getting capecitabine + radiation. I see that AVS stated: Return for labs when she is scheduled for a SIM, Chemo teach, Jessica exam and chemo and labs 2 weeks . I think the chemo was a mis-type?? Thanks Shad Florence PharmD, BCOP [facility] Work Phone: [phone] Telephone encounter Note* Telephone Encounter - Janis Suarez RN - 09/18/2023 8:51 AM EDT Pt is scheduled 5/6 for [address] tx[address] Please place orders in beacon to prevent delay in tx. Thank you, Janis Suarez RN [facility]04-30-[facility] History of Present illness Narrative* Patricia Dee MD - 09/18/2023 12:00 AM EDT PARVEZ RIGGINS [id number] 09/18/2023 [facility] Radiation Oncology Department SIMULATION NOTE DATE OF SIMULATION: 09/18/2023 THERAPIST: Flaquita Delatorre MACHINE: [employer] DIAGNOSIS: Malignant neoplasm of [id number] AREA: PELVIS CONTRAST: None Consent in Epic: Yes PATIENT POSITION: Supine. FIXATION DEVICE: In order to achieve accurate and reproducible treatments, the patient is immobilized with ORFIT AIO W/ PRONE INSERT. A time-out was conducted and recorded by the therapist. CT scan was completed for target localization and planning. Field arrangement will be determined after plan has been completed. The patient is scheduled for a verification simulation on the treatment machine to ensure proper set-up and field arrangement is correct prior to the first treatment of primary and boost henriquez if applicable. Patient education will be completed per nursing. Electronically Signed Nicholas Dee M.D. / CDT 44:18 PM documented in this encounterAdams County Regional Medical Center04-30-2024 History of Present illness Narrative* Particia Dee MD - 09/18/2023 12:00 AM EDT PARVEZ RIGGINS Joy [id number] 09/18/2023 [facility] Department of Radiation Oncology Treatment Planning Note For reasons stated in the consult note, Parvez Riggins is a candidate for radiation therapy. Based on review and interpretation of the relevant diagnostic studies together with the exam findings, Parvez Riggins was simulated on 09/18/2023 at which time the target volume and/or requisite henriquez were delineated, as indicated in the simulation note, to be treated according to the prescription. The treatment target and organs at risk were contoured on the simulation scan using the fused MRI /. Special consideration to these and other structures was given in light of the potential for increased toxicities of combined chemoradiation. After reviewing multiple treatment plans with dosimetry, the best plan was approved to deliver the prescribed course of radiation to the target area using 3D planning to allow for the best isodose distribution, treating to the 98% isodose line with 15MV and 3 henriquez. Custom MLC asym jaws were the treatment devices used to shape/modify the beams. Limiting dose to normal tissue was confirmed upon review of the calculated dose volume histogram. A completed summary of this plan dated 10/11/2023 incorporated herein by reference includes dose, beam arrangements, energy, blocking, isodose distribution, and/or ports and DVH. Electronically Signed Nicholas Dee M.D. 41:22 PM documented in this encounterAdams County Regional Medical Center04-26-2024 Telephone encounter Note * Telephone Encounter - Pauline Fatima LSW - 09/14/2023 1:53 PM EDT SOCIAL WORK FOLLOW UP NOTE: [facility] Date of service:09/14/23 PLAN: Continue follow up as needed F/U APPOINTMENT: 09/18/23 at 1:45pm Assigned PAUL listed in Care Team tab: Yes PAUL called and left a second message for this Patient to update her about her new appointment date/time and to inquire if she needs a ride. PAUL may not be able to book her a ride through her insurance because her insurance requires a 2 business day/48 hour notice for all ride requests. PAUL is awaitinga call back from the Patient. VICENTE Nash [facility]04-26-2024 Miscellaneous Notes* Telephone Encounter - Paulien Fatima LSW - 09/14/2023 1:53 PM EDT SOCIAL WORK FOLLOW UP NOTE: [facility] Date of service:09/14/23 PLAN: Continue follow up as needed F/U APPOINTMENT: 09/18/23 at 1:45pm Assigned PAUL listed in Care Team tab: Yes PAUL called and left a second message for this Patient to update her about her new appointment date/time and to inquire if she needs a ride. PAUL may not be able to book her a ride through her insurance because her insurance requires a 2 business day/48 hour notice for all ride requests. SW is awaitinga call back from the Patient. VICENTE Nash documented in this encounterAdams County Regional Medical Center04-25-2024 Telephone encounter Note * Telephone Encounter - Pauline Fatima LSW - 09/13/2023 3:28 PM EDT SOCIAL WORK FOLLOW UP NOTE: [facility] Date of service:09/13/23 PLAN: Continue follow up as needed F/U APPOINTMENT: 09/18/23 at 1:45pm Assigned PAUL listed in Care Team tab: Yes Patient simulation was rescheduled to 09/17 at 1:45pm (labs, chemo ed, then sim). Called and left a VM for Patient. SW asked for a call back to confirm if she needs transportation for this appointmentor not. Awaiting a call back. VICENTE Nash [facility]04-25-2024 Miscellaneous Notes* Telephone Encounter - Pauline Fatima LSW - 09/13/2023 3:28 PM EDT SOCIAL WORK FOLLOW UP NOTE: [facility] Date of service:09/13/23 PLAN: Continue follow up as needed F/U APPOINTMENT: 09/18/23 at 1:45pm Assigned PAUL listed in Care Team tab: Yes Patient simulation was rescheduled to 09/17 at 1:45pm (labs, chemo ed, then sim). Called and left a VM for Patient. SW asked for a call back to confirm if she needs transportation for this appointmentor not. Awaiting a call back. VICENTE Nash documented in this encounterAdams County [facility] Center04-25-2024 Telephone encounter Note * Telephone Encounter - Filomena Stovall - 09/13/2023 7:12 AM EDT Patient is scheduled to see the insolvency practitionerKelli while in the treatment room on Sunday, 09/23. Thanks Filomena Stovall [facility]04-25-2024 Miscellaneous Notes* Telephone Encounter - Filomena Stovall - 09/13/2023 7:12 AM EDT Patient is scheduled to see the insolvency practitionerKelli while in the treatment room on Sunday, 09/23. Thanks Filomena Stovall * Telephone Encounter - Little Bowens RN - 09/12/2023 3:45 PM EDT Pt will be in for chemo ed tomorrow. Please sign pending antiemetics if you agree, as well as nutrition consult. PSS: please schedule pt for title search manager referral Thanks Little Bowens RN documented in this encounterAdams County [facility] Center04-24-2024 Telephone encounter Note * Telephone Encounter - Sindy Florence RPh - 09/12/2023 3:52 PM EDT Parvez's capecitabine order will be filled through [facility]. There is no outof pocket cost to her and the medication can be picked up at the time of her chemo education. Scripts pending for anti-emetics: Please sign. Martha SilvaD, BCOP [facility] Work Phone: [phone] Miscellaneous Notes* Telephone Encounter - Sindy Florence RPh - 09/12/2023 3:52 PM EDT Parvez's capecitabine order will be filled through [facility]. There is no outof pocket cost to her and the medication can be picked up at the time of her chemo education. Scripts pending for anti-emetics: Please sign. Shad Florence, MarthaD, BCOP documented in this encounterAdams County [facility] Center04-24-2024 Telephone encounter Note * Telephone Encounter - Nini Neri RN - 09/12/2023 3:[address] Ana SHRESTHA- this will need rescheduled to next week. PSS- please reschedule. She also has labs/chemo ed on. Please notify Pauline of reschedule date/time as well. Nini Neri RN [facility]04-24-2024 Miscellaneous Notes* Telephone Encounter - Nini Neri RN - 09/12/2023 3:[address] Ana SHRESTHA- this will need rescheduled to next week. PSS- please reschedule. She also has labs/chemo ed on. Please notify Pauline of reschedule date/time as well. Nini Neri RN * Telephone Encounter - Pauline Fatima LSW - 09/12/2023 2:57 PM EDT SW called Patient regarding transportation. Patient requested to cancel her sim due to abdominal pain/discomfort. Patient's daughter is unable to provide a ride for tomorrow (09/12). Patient's insurance will provide a ride if there is a 48 hour notice. Patient requests to reschedule her sim. Please notify SW when the sim is rescheduled so transportation can be discussed with Patient and secured through her insurance (if needed). Thank you! Pauline * Telephone Encounter - Nini Neri RN - 09/12/2023 2:20 PM EDT Pt called in stating she could not come to her simulation tomorrow. She stated she is in a lot of pain today in her lower pelvic area which she did tell the doctors about yesterday. This is not a newpain for her and feels like sharp cramps. She takes tylenol with little relief when it flares up. She reports her bowels are moving without any issue. Pt then said she can not get a ride here because her daughter has to work. I asked her if she wanted to try to see if social work could possibly help get her here and she said she would come if she could get a ride. Discussed with Pauline. She is unsure if she can get assistance with such short notice, but will let us know KOFI. Nini Neri RN documented in this encounterAdams County Regional Medical Center04-24-2024 Telephone encounter Note * Telephone Encounter - Pauline Fatima LSW - 09/12/2023 3:47 PM EDT [facility] FOLLOW [facility] Date of service:09/12/23 Parvez Riggins is being seen for a follow up social work visit. Today's visit includes: patient TOPICS ADDRESSED: transportation PLAN: Continue follow up as needed Assigned SW listed in Care Team tab: Yes Patient called in to cancel her simulation for 09/12 due the lack of transportation. SW called Patient. Patient's daughter has to work and cannot provide her with a ride. Patient states that she is experiencing abdominal pain and does not think that she can come in tomorrow. SW discussed with Patient that with a 2 day notice prior to her appointments that her insurance will provide her with a ride. Patient asked this SW to cancel her sim and reschedule it. SW messaged Avril RN, Gris, RN and Little, Cub Reporter the above update.SW will remain available and will follow up as appropriate. VICENTE Nash [facility]04-24-2024 Miscellaneous Notes* Telephone Encounter - Pauline Fatima LSW - 09/12/2023 3:47 PM EDT [facility]IAL WORK FOLLOW UP NOTE[facility] Date of service:09/12/23 Parvez Riggins is being seen for a follow up social work visit. Today's visit includes: patient TOPICS ADDRESSED: transportation PLAN: Continue follow up as needed Assigned SW listed in Care Team tab: Yes Patient called in to cancel her simulation for 09/12 due the lack of transportation. SW called Patient. Patient's daughter has to work and cannot provide her with a ride. Patient states that she is experiencing abdominal pain and does not think that she can come in tomorrow. SW discussed with Patient that with a 2 day notice prior to her appointments that her insurance will provide her with a ride. Patient asked this SW to cancel her sim and reschedule it. SW messaged CIPRIANO Mackenzie, Gris RN and Little, Cub Reporter the above update.SW will remain available and will follow up as appropriate. VICENTE Nash documented in this encounterAdams County [facility] Center04-24-2024 Telephone encounter Note * Telephone Encounter - Little Bowens RN - 09/12/2023 3:45 PM EDT Pt will be in for chemo ed tomorrow. Please sign pending antiemetics if you agree, as well as nutrition consult. PSS: please schedule pt for title search manager referral Thanks Little Bowens RN [facility]04-24-2024 Telephone encounter Note* Telephone Encounter - Pauline Fatima LSW - 09/12/2023 2:57 PM EDT PAUL called Patient regarding transportation. Patient requested to cancel her sim due to abdominal pain/discomfort. Patient's daughter is unable to provide a ride for tomorrow (09/12). Patient's insurance will provide a ride if there is a 48 hour notice. Patient requests to reschedule her sim. Please notify SW when the sim is rescheduled so transportation can be discussed with Patient and secured through her insurance (if needed). Thank you! Pauline [facility]04-24-2024 Telephone encounter Note* Telephone Encounter - Nini Neri, RN - 09/12/2023 2:20 PM EDT Pt called in stating she could not come to her simulation tomorrow. She stated she is in a lot of pain today in her lower pelvic area which she did tell the doctors about yesterday. This is not a newpain for her and feels like sharp cramps. She takes tylenol with little relief when it flares up. She reports her bowels are moving without any issue. Pt then said she can not get a ride here because her daughter has to work. I asked her if she wanted to try to see if social work could possibly help get her here and she said she would come if she could get a ride. Discussed with Pauline. She is unsure if she can get assistance with such short notice, but will let us know KOFI. Nini Neri, RN [facility]04-23-20[facility] History of Present illness Narrative* Arturo Mcdonald MD - 09/11/2023 3:59 PM EDT PATIENT NAME: Parvez Riggins CLINIC NO.: [id number] ATTENDING PHYSICIAN: Arturo Mcdonald MD DATE OF SERVICE: September 11, [address] Ellis referring provider defined for this encounter. here is an update on a follow up visit on female Parvez Riggins at the clinic 09/11/2023 Diagnosis: Rectal Cancer- MRI Staged T3a,N+,M0- RHYS Treatment History: HPI: Parvez Riggins is a 68 year old year old female here for follow up. She does have some bloating as well as mucous. Denies any fevers and or chills. Denies any abdominal pain as well. PAST MEDICAL HISTORY Diagnosis Date Anxiety Carcinoma of vulva (HCC) Chronic back pain COVID-19 Depression Diabetes (HCC) GERD (gastroesophageal reflux disease) HPV in female Hypertension Ovarian cyst Panic disorder PONV (postoperative nausea and vomiting) Rectal bleeding Rectal cancer (HCC) Rectal mass Sleep apnea Vulval lesion Social History Tobacco Use Smoking status: Former Years: 1 Types: Cigarettes Passive exposure: Past Smokeless tobacco: Never Substance Use Topics Alcohol use: Yes Comment: occasional Drug use: Never FAMILY HISTORY Problem Relation Age of Onset Diabetes Mother Stroke Mother Hypertension Father Uterine Cancer Maternal Grandmother Diabetes Maternal Grandfather Heart Attack Maternal Grandfather Dementia Paternal Grandmother Heart Attack Paternal Grandfather Past medical, social and family history reviewed without any changes. REVIEW OF SYSTEMS GENERAL: No weight loss, malaise or fevers. No night sweats. HEENT: Negative for headaches, No changes in hearing or vision, no nose bleeds or other nasal problems. RESPIRATORY: Negative for cough, wheezing and shortness of breath CARDIOVASCULAR: Negative for chest pain, leg swelling and palpitations GI: Negative for abdominal discomfort, blood in stools or black stools and change in bowel habits : Negative for dysuria, frequency and incontinence MUSCULOSKELETAL: Negative for joint pain or swelling, back pain, and muscle pain. SKIN: Negative for lesions, rash, and itching. HEMATOLOGY/LYMPHOLOGY Negative for prolonged bleeding, bruising easily, and swollen nodes. NEURO: Negative for numbness or tingling of hands/feet. No weakness. PHYSICAL EXAMINATION: BP 135/83 Pulse 84 Temp (Src) 97.4 (Temporal) Resp 18 Ht 5' 7.008 (1.70m) Wt 198 lb 3.1 oz (89.9kg) SpO2 98% BMI 31.03 kg/(m^2). Wt 89.9 kg (198 lb 3.1 oz) BMI 31.03 kg/m2 Last 3 Encounter Wt Readings: Date: Wt: 09/11/2023 89.9 kg (198 lb 3.1 oz) 09/11/2023 89.9 kg (198 lb 3.1 oz) 07/19/2023 84.9 kg (187 lb 2.7 oz) General appearance:ECOG PERFORMANCE STATUS: 1- Restricted in physically strenuous activity. Carries out light duty. Patient in NAD. Skin: Skin color, texture, turgor normal. No rashes or lesions. Eyes: Anicteric sclera. Pupils are equally round and reactive to light. Extraocular movements are intact. Lymph Nodes: No cervical, supraclavicular, axillary or inguinal adenopathy. Oropharynx: Lips, mucosa, and tongue normal. Back: No pain to percussion. Negative SLR test Lungs clear to auscultation, No wheezing or rhonchi Heart: RRR without murmur, gallop, or rubs. Abdomen soft, non-tender. No masses, organomegaly Extremities: No deformities. No edema Neuro: Gait and speech normal. Reflexes normal and symmetric. Muscular strength intact. Sensation grossly intact. Rectal: Deferred : Deferred LABS: Glucose (mg/dL) Date Value 07/11/2023 206 Potassium (mmol/L) Date Value 07/11/2023 3.0 04/24/2021 3.4 Sodium (mmol/L) Date Value 07/11/2023 142 04/24/2021 140 Chloride (mmol/L) Date Value 07/11/2023 102 04/24/2021 104 CO2 (mmol/L) Date Value 07/11/2023 28 Carbon Dioxide (mmol/L) Date Value 04/24/2021 23 Creatinine (mg/dL) Date Value 07/11/2023 1.11 BUN (mg/dL) Date Value 07/11/2023 8 Anion Gap (mmol/L) Date Value 07/11/2023 12 04/24/2021 13 Calcium, Total (mg/dL) Date Value 07/11/2023 9.3 Protein, Total (g/dL) Date Value 07/11/2023 6.7 Albumin (g/dL) Date Value 07/11/2023 3.6 Bilirubin, Total (mg/dL) Date Value 07/11/2023 0.8 Alkaline Phosphatase (U/L) Date Value 07/11/2023 105 AST (U/L) Date Value 07/11/2023 14 ALT (U/L) Date Value 07/11/2023 10 WBC Date Value Ref Range Status 07/11/2023 10.04 3.70 - 11.00 k/uL Final RBC Date Value Ref Range Status 07/11/2023 4.77 3.90 - 5.20 m/uL Final Hemoglobin Date Value Ref Range Status 07/11/2023 12.4 11.5 - 15.5 g/dL Final Hematocrit Date Value Ref Range Status 07/11/2023 38.3 36.0 - 46.0 % Final MCV Date Value Ref Range Status 07/11/2023 80.3 80.0 - 100.0 fL Final MCH Date Value Ref Range Status 07/11/2023 26.0 26.0 - 34.0 pg Final MCHC Date Value Ref Range Status 07/11/2023 32.4 30.5 - 36.0 g/dL Final RDW-CV Date Value Ref Range Status 07/11/2023 13.3 11.5 - 15.0 % Final Platelet Count Date Value Ref Range Status 07/11/2023 469 (H) 150 - 400 k/uL Final MPV Date Value Ref Range Status 07/11/2023 8.5 (L) 9.0 - 12.7 fL Final Abs Neut Date Value Ref Range Status 07/11/2023 6.73 1.45 - 7.50 k/uL Final Lymphocytes % Date Value Ref Range Status 07/11/2023 20.9 % Final Abs Lymph Date Value Ref Range Status 07/11/2023 2.10 1.00 - 4.00 k/uL Final Monocytes % Date Value Ref Range Status 07/11/2023 7.8 % Final Abs Jeff Davis Date Value Ref Range Status 07/11/2023 0.78 <0.87 k/uL Final Abs Eosin Date Value Ref Range Status 07/11/2023 0.31 <0.46 k/uL Final Basophils % Date Value Ref Range Status 07/11/2023 0.9 % Final Abs Baso Date Value Ref Range Status 07/11/2023 0.09 <0.11 k/uL Final PATH: Colonoscopy 06/2023: Rectal mass, procedure not specified: - 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 2. Anal verge, procedure not specified: - Inflammatory cloacogenic polyp, ulcerated, negative for dysplasia or carcinoma. MMR Interpretation Proficient (Microsatellite Stable Imaging: CT Scan of the Chest and Abdomen and Pelvis 06/2203: 1. Left-sided nodular opacities measuring up to 5 mm. Metastatic disease is not excluded. Recommend continued attention to these areas on follow-up exams. 2. No evidence of intrathoracic lymphadenopathy. 1. Large rectal mass with numerous enlarged perirectal nodes, suspicious for ami metastatic disease. 2. No additional findings to suggest distant abdominal or pelvic metastatic disease. 3. Linear bandlike hypodensity within the spleen, suggestive of a splenic infarct. 4. 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 MRI Rectum 08/2023: IMPRESSION: MID RECTAL SEMIANNULAR MASS. Stage: T3a N+ MRF: Clear (tumor margin >2 mm from MRF), however a metastatic mesorectal lymph node abuts the MRF Sphincter involvement: No. Suspicious extra mesorectal lymph nodes: No. EMVI: No. Assessment and Plan: Parvez Riggins is a 68 year old year old female here for follow up. Rectal cancer and we discussed the rational perlita YANIV and also the toxicity associated with the treatment and will plan on YANIV. Coordinate with radiation and also arrange chemo teach as well. Thank you for the kind referral. If there are any questions and or concerns please do not hesitate to contact me at [phone]. Arturo Mcdonald MD Hematology/Medical Oncology [facility] spent a total of 30 minutes on the date of the service which included preparing to see the patient, [id number] patient care, completing clinical documentation, obtaining and/or reviewing separately obtained history, performing a medically appropriate examination, counseling and educating the pat ient/family/caregiver, and ordering medications, tests, or procedures. CC: Keaton Hu MD documented in this encounterAdams County [facility] Center04-23-2024 Nurse Note* More Madsen LPN - 09/11/2023 3:18 PM EDT Radiation Therapy - Patient Education Note PATIENT NAME: Parvez Riggins PATIENT September 11, 2023 [facility] FACILITY/LOCATION: [place] READINESS TO LEARN Cognitive Ability: Alert and oriented Motivation to learn: Interested Family Support: High - Very involved in pt care Instruction provide to: Patient and Daughter Patient learns best by: Multiple Methods Factors effecting learning: None Physical limitations effecting learning: None LEARNING RESPONSE Diagnosis: Pt simulated today for radiation therapy to pelvis. Education Topic/Teaching Points: Radiation therapy, Side effects, and OTV: Method of instruction: Written instruction - handouts Verbal instruction Patient /Family response: Patient and family verbalized understanding of radiation treatments, sideeffects, OTV, and transportation. Follow-up plan: Patient instructed to call with any further issues Recommend - Recommend continued instruction and follow up as directed Contact information given. Supplemental material: Informational handouts on bladder changes, fatigue, diarrhea, skin changes, radiation therapy to the pelvis, patient education binder. Referral (recommendation): Dietitian Patient has an Onbody or Implanted device: No Signed by: More Madsen LPN [facility]04-23-[facility] Nurse Note* More Madsen LPN - 09/11/2023 3:18 PM EDT Radiation Therapy - Patient Education Note PATIENT NAME: Parvez Riggins PATIENT September 11, 2023 [facility] FACILITY/LOCATION: [place] READ[facility] TO LEARN Cognitive Ability: Alert and oriented Motivation to learn: Interested Family Support: High - Very involved in pt care Instruction provide to: Patient and Daughter Patient learns best by: Multiple Methods Factors effecting learning: None Physical limitations effecting learning: None LEARNING RESPONSE Diagnosis: Pt simulated today for radiation therapy to pelvis. Education Topic/Teaching Points: Radiation therapy, Side effects, and OTV: Method of instruction: Written instruction - handouts Verbal instruction Patient /Family response: Patient and family verbalized understanding of radiation treatments, sideeffects, OTV, and transportation. Follow-up plan: Patient instructed to call with any further issues Recommend - Recommend continued instruction and follow up as directed Contact information given. Supplemental material: Informational handouts on bladder changes, fatigue, diarrhea, skin changes, radiation therapy to the pelvis, patient education binder. Referral (recommendation): Dietitian Patient has an Onbody or Implanted device: No Signed by: More Madsen LPN documented in this encounterAdams County [facility] Center04-23-2024 History of Present illness Narrative* Patricia Dee MD - 09/11/2023 2:26 PM EDT Radiation Oncology -follow-up note PATIENT NAME: Parvez Riggins PATIENT DIAGNOSIS: Rectal cancer, clinical stage T3a N2M0, previous history of vulvar cancer. HPI: Since last visit she has undergone further workup and evaluation. CT chest abdomen and pelvis 07/16/2023 demonstrating: Chest:1. Left-sided nodular opacities measuring up to 5 mm. Metastatic disease is not excluded. Recommend continued attention to these areas on follow-up exams. 2. No evidence of intrathoracic lymphadenopathy. Abdomen and pelvis: 1. Large rectal mass with numerous enlarged perirectal nodes, suspicious for ami metastatic disease. 2. No additional findings to suggest distant abdominal or pelvic metastatic disease. 3. Linear bandlike hypodensity within the spleen, suggestive of a splenic infarct. 4. 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 MRI rectum 09/04/2023: MID RECTAL SEMIANNULAR MASS. Stage: T3a N+ MRF: Clear (tumor margin >2 mm from MRF), however a metastatic mesorectal lymph node abuts the MRF Sphincter involvement: No. Suspicious extra mesorectal lymph nodes: No. EMVI: No. RESULT: PRIMARY TUMOR: MORPHOLOGY, LOCATION, AND CHARACTERISTICS: Distance to the anal verge: 8.6 cm (3:22) Distance to the top of sphincter complex/anorectal junction: 4.7 cm (3:22) Relationship to anterior peritoneal reflection: Straddles Craniocaudal length: 6.9 cm (3:22) Tumor location: Mid rectum (5-10 cm) Morphology: Partly annular Mucinous: No mucin MR-T stage: T3a (tumor penetrates < 1 mm beyond muscularis propria) (14:20 and 16:22) Structures with possible invasion by T4b tumors: None Invasion of anal sphincter complex: Absent. Anal canal involvement: None. Comments: N/A TUMOR DEPOSITS AND EXTRAMURAL VASCULAR INVASION (EMVI): Tumor deposits:(separate from metastatic lymph nodes): No. EMVI: No. MESORECTAL FASCIA (MRF): Shortest distance of extraluminal part of the tumor to MRF: 1.5 cm (5:26) Tumor extension through the peritonealized portion of the rectum into peritoneal fat: No extension into peritoneal fat. Is there a separate tumor deposit, LN or EMVI threatening (?1mm and ?2 mm) or invading (< 1 mm) the MRF? Left mesorectal lymph node measuring 0.6 cm in short axis, abutting the mesorectal fascia (6:22) Comments: None LYMPH NODES: Mesorectal/superior rectal lymph nodes and/or tumor deposits: N+ (short axis 5-9 mm AND at least 2 morphologic criteria) N Stage: N2 Index nodes: Left mesorectal lymph node measuring 0.8 cm in short axis, (6:26)) Left mesorectal lymph node measuring 0.6 cm in short axis, (6:22) Posterior mesorectal lymph node measuring 0.5 cm short axis, (6:20) Superior rectal lymph nodes measuring 0.6 cm in short axis, (10/22/2016) Suspicious extra mesorectal lymph nodes: None OTHER FINDINGS: Unchanged simple appearing cyst in the right ovary measuring 2.7 cm. Initial colonoscopy demonstrating a rectal mass, described at 10 cm from anal verge. Biopsy showingsuggestive of adenocarcinoma. She underwent further evaluation with Dr. Diez. Colonoscopy on 06/26/2023 demonstrating a 5 cm in length, 3 cm diameter rectal mass approximately 8 cm from the anal verge. Described as fungating partially obstructing involving two thirds of the lumen. None circumferential predominantly at the posterior bowel wall. Multiple diverticuli within the sigmoid and descending colon. 10 mm polyp found inthe anal region, biopsied. Rectal mass resected with tattoo placed at the area of origin. Pathology demonstrating moderately differentiated infiltrating adenocarcinoma with associated necrosis. Additional biopsy anal verge showing partially ulcerated and inflamed anorectal mucosa with hyperplastic and reactive changes, negative for dysplasia or malignancy. ALLERGIES Allergen Reactions Codeine Other: See Comments Nausea Tramadol Vomiting PAST MEDICAL HISTORY Diagnosis Date Anxiety Carcinoma of vulva (HCC) Chronic back pain COVID-19 Depression Diabetes (HCC) GERD (gastroesophageal reflux disease) HPV in female Hypertension Ovarian cyst Panic disorder PONV (postoperative nausea and vomiting) Rectal bleeding Rectal cancer (HCC) Rectal mass Sleep apnea Vulval lesion Prior radiation therapy, collagen vascular disease, or inflammatory bowel disease: No Any implanted or external electric devices? No status: Patient states there is no possibility she is at this time. Educated on risks of during treatment. PAST SURGICAL HISTORY Procedure Laterality Date ARTHROSCOPY KNEE DIAGNOSTIC W/WO SYNOVIAL BX SPX Left x2 ARTHRP KNE CONDYLE&PLATU MEDIAL&LAT COMPARTMENTS Left BACK SURGERY HX CHOLECYSTECTOMY HX COLONOSCOPY EGD W/O BRSH SPEC VARICIES INJ LIGATE FALLOPIAN TUBE NASAL ENDOS,DIAG,UNI/ BILATERAL PAST SURGICAL HISTORY OF Dissection of lymph node inguinal femoral PAST SURGICAL HISTORY OF Revision of Episiotomy PAST SURGICAL HISTORY OF 2020 Right Hemivulvectomy/Bilateral inguinal sentinal lymp node dissection TOTAL KNEE REPLACEMENT Left TUBAL LIGATION FAMILY HISTORY Problem Relation Age of Onset Diabetes Mother Stroke Mother Hypertension Father Uterine Cancer Maternal Grandmother Diabetes Maternal Grandfather Heart Attack Maternal Grandfather Dementia Paternal Grandmother Heart Attack Paternal Grandfather Social History Tobacco Use Smoking status: Former Years: 1 Types: Cigarettes Passive exposure: Past Smokeless tobacco: Never Substance Use Topics Alcohol use: Yes Comment: occasional Drug use: Never CONTACT CENTER TEAM LEAD HISTORY: The patient is postmenopausal . COMPLETE REVIEW OF SYSTEMS: GENERAL: feeling well without fatigue, no recent change in weight NECK: denies swelling or pain in neck RESPIRATORY: no cough, no wheezing or shortness of breath CARDIOVASCULAR: no chest pain, no palpitations GI: normal appetite, tolerating PO well, no nausea. : urination is normal CONTACT CENTER TEAM LEAD: denies abnormal vaginal bleeding, no vaginal discharge, no breast mass/tenderness SKIN: no rash NEURO: no numbness or paresthesias and no weakness of the extremities As noted in HPI PHYSICAL EXAM: VS: BP 135/83 Pulse 84 Temp 36.3 C (97.4 F) Resp 18 Wt 89.9 kg (198 lb 3.1 oz) SpO2 98% BMI 31.04 kg/m KPS: 90 General Appearance: Alert and oriented. No acute distress. CONTACT CENTER TEAM LEAD: Deferred Rectal: Deferred RADIOLOGY/LABORATORY DATA: CEA 06/14/2023: 4.5 Latest Reference Range & Units 07/11/23 15:47 Sodium 136 - 144 mmol/L 142 Potassium 3.7 - 5.1 mmol/L 3.0 (L) Chloride 97 - 105 mmol/L 102 CO2 22 - 30 mmol/L 28 BUN 7 - 21 mg/dL 8 Creatinine 0.58 - 0.96 mg/dL 1.11 (H) Glucose 74 - 99 mg/dL 206 (H) Protein, Total 6.3 - 8.0 g/dL 6.7 Calcium 8.5 - 10.2 mg/dL 9.3 Albumin 3.9 - 4.9 g/dL 3.6 (L) Bilirubin, Total 0.2 - 1.3 mg/dL 0.8 Alkaline Phosphatase 34 - 123 U/L 105 ALT 7 - 38 U/L 10 AST 13 - 35 U/L 14 Anion Gap 9 - 18 mmol/L 12 eGFR >=60 mL/min/1.73m 55 (L) Ferritin 14.7 - 205.1 ng/mL 42.8 Iron 41 - 186 ug/dL 51 TIBC 232 - 386 ug/dL 277 Transferrin Saturation 15.0 - 57.0 % 18.4 WBC 3.70 - 11.00 k/uL 10.04 RBC 3.90 - 5.20 m/uL 4.77 Hemoglobin 11.5 - 15.5 g/dL 12.4 Hematocrit 36.0 - 46.0 % 38.3 Platelet Count 150 - 400 k/uL 469 (H) MCV 80.0 - 100.0 fL 80.3 MCH 26.0 - 34.0 pg 26.0 MCHC 30.5 - 36.0 g/dL 32.4 MPV 9.0 - 12.7 fL 8.5 (L) RDW-CV 11.5 - 15.0 % 13.3 DTYPE Auto Neut% % 67.0 Abs Neut (ANC) 1.45 - 7.50 k/uL 6.73 Lymph% % 20.9 Abs Lymph 1.00 - 4.00 k/uL 2.10 Jeff Davis% % 7.8 Abs Jeff Davis <0.87 k/uL 0.78 Eosin% % 3.1 Abs Eosin <0.46 k/uL 0.31 Baso% % 0.9 Abs Baso <0.11 k/uL 0.09 Immature Gran % % 0.3 IMMATURE GRANS (ABS) <0.10 k/uL 0.03 NRBC /100 WBC 0.0 Absolute nRBC <0.01 k/uL <0.01 (L): Data is abnormally low (H): Data is abnormally high ASSESSMENT AND PLAN: Rectal cancer, clinical stage IIIB T3a N2M0 Staging shows disease limited to the pelvis, with MRI identified adenopathy. Her case has been presented at GI tumor board. Recommendation for total neoadjuvant treatment. Certainly concur with this.The role of radiation discussed with patient again at length. Potential acute and long-term effectsof radiation. Simulation will be scheduled anticipate starting treatment concurrently chemotherapy on September 23. Signed by: Patricia Dee MD cc: Keaton Hu, DO [address] [id number] documented in this encounterAdams [facility] Center04-19-2024 Miscellaneous Notes* Telephone Encounter - Arturo Mcdonald MD - 09/07/2023 3:24 PM EDT Thanks and I tried calling and there was no response. Hope that she will come nad discuss next week,. * Telephone Encounter - Livier Crespo RN - 09/07/2023 2:33 PM EDT FYI: Pt notified of results and plan of care. States that she is having a hard time dealing with the diagnosis. Is unclear if she even wants to proceed w/ treatment. Offered to have pt speak w/ VERNON Nash. Pt refused. Advised she keep Sunday's appointments as scheduled so she can discuss her concerns w/ both Dr Mcdonald and Dr Dee. Pt verbalizes understanding and agrees. Livier Crespo RN * Telephone Encounter - Arturo Mcdonald MD - 09/07/2023 2:11 PM EDT I called and LVM as she was not available. She has T3 tumor and local nodes and the plan is Chemo and Radiation followed by 4 months [facility] * Telephone Encounter - Livier Crespo RN - 09/07/2023 1:35 PM EDT Pt requesting results of this week's MRI. Please review and advise. Thanks! Livier Crespo, RN documented in this encounterAd[facility] Center04-16-2024 Miscellaneous Notes* Telephone Encounter - Jackeline Sy - 09/04/2023 3:56 PM EDT ----- Message from Keaton Hu DO sent at 06/12/2023 2:48 PM EST ----- DM recheck * Telephone Encounter - Jackeline Sy - 09/04/2023 3:56 PM EDT LVM to call the office * Telephone Encounter - Jackeline Sy - 09/04/2023 3:56 PM EDT 2nd attempt * Telephone Encounter - Fara Marsh - 09/04/2023 3:56 PM EDT Scheduled 10/02 [facility] Telephone encounter Note* Telephone Encounter - Jackeline Sy - 09/04/2023 3:56 PM EDT ----- Message from Keaton Hu DO sent at 06/12/2023 2:48 PM EST ----- DM recheck [facility]04-16-20[facility] Telephone encounter Note* Telephone Encounter - Jackeline Sy - 09/04/2023 3:56 PM EDT LVM to call the office [facility]04-16-2024 Telephone encounter Note* Telephone Encounter - Jackeline Sy - 09/04/2023 3:56 PM EDT 2nd attempt [facility]04-16-20[facility] Telephone encounter Note* Telephone Encounter - Fara Marsh - 09/04/2023 3:56 PM EDT Scheduled 10/02 [facility]04-16-2024 Miscellaneous Notes* [facility] - Korina Quijano RT(Rubén) - 09/04/2023 2:40 PM EDT Radiology Service Progress Note DATE OF SERVICE: September 04, 2023 TIME: 4:42 PM PATIENT IDENTITY VERIFICATION COMPLETED USING TWO (2) STANDARD IDENTIFIERS: Name and Date of confirmed by patient verbally and Name and Date of confirmed by identification band. FALL SCREENING: Has the patient had 2 falls in the last year or 1 fall with injury or currently using an Ambulatory Assistive Device (Walker, Cane, Wheelchair, Crutches, etc.)? No PATIENT GENDER DATA: Female. status: : No status: NO. and N/A PATIENT RELEVANT IMPLANT DATA REVIEWED: Yes PATIENT PRESENTS WITH AN IMPLANTABLE OR ATTACHED RESEARCH TECHNICIAN: No ALLERGIES: Reviewed and unchanged CONTRAST ALLERGY: NO. EXAM: MRI - CONTRAST TYPE: GROUP II PERIPHERAL IV DATA: Ambulatory: A peripheral IV was started in the Right antecubital site with a Butterfly: 23 gauge. RADIOLOGY DEPARTMENT: MR; Exam(s) Completed: Body: Rectal SIGNATURE: RT Aiden(Rubén) PATIENT NAME: Parvez Riggins DATE: September 04, 2023 TIME: 4:42 PM documented in this encounterAdams County [facility] Center04-16-2024 Progress note* [facility] - Korina Quijano RT(R) - 09/04/2023 2:40 PM EDT Radiology Service Progress Note DATE OF SERVICE: September 04, 2023 TIME: 4:42 PM PATIENT IDENTITY VERIFICATION COMPLETED USING TWO (2) STANDARD IDENTIFIERS: Name and Date of confirmed by patient verbally and Name and Date of confirmed by identification band. FALL SCREENING: Has the patient had 2 falls in the last year or 1 fall with injury or currently using an Ambulatory Assistive Device (Walker, Cane, Wheelchair, Crutches, etc.)? No PATIENT GENDER DATA: Female. status: : No status: NO. and N/A PATIENT RELEVANT IMPLANT DATA REVIEWED: Yes PATIENT PRESENTS WITH AN IMPLANTABLE OR ATTACHED RESEARCH TECHNICIAN: No ALLERGIES: Reviewed and unchanged CONTRAST ALLERGY: NO. EXAM: MRI - CONTRAST TYPE: GROUP II PERIPHERAL IV DATA: Ambulatory: A peripheral IV was started in the Right antecubital site with a Butterfly: 23 gauge. RADIOLOGY DEPARTMENT: MR; Exam(s) Completed: Body: Rectal SIGNATURE: RT Aiden(R) PATIENT NAME: Parvez Riggins DATE: September 04, 2023 TIME: 4:42 PM [facility]04-10-20[facility] Miscellaneous Notes* Telephone Encounter - Katrin Samano RN - 08/29/2023 10:12 AM EDT Message left by Hog Cutter x 2 to assess patient needs again and help set up transportation forMRI next week if her daughter is not able to take her. documented in this encounterBluffton Hospital04-10-2024 Telephone encounter Note* Telephone Encounter - Katrin Samano RN - 08/29/2023 10:12 AM EDT Message left by Hog Cutter x 2 to assess patient needs again and help set up transportation forMRI next week if her daughter is not able to take her. [employer] Work Phone: 1(784) 384-294004-02-2024 Miscellaneous Notes* Telephone Encounter - Katrin Samano RN - 08/21/2023 11:12 AM EDT CN attempted a 3-way phone call to discuss coverage for transportation. [facility] customer service was called but they need to speak with patient and not Hog Cutter. Message left asking for a return call to assist with resources and transportation. [facility] [facility]- Does not take Medicare, only Medicaid. Patients need to call the number on the back of their card for transportation services to appt. They do not touch the patient and there needs to a ramp. Address: [address] [place] [address] Areas served: [place] and nearby areas Hours: Open ? Closes 5?PM Check with insurance company, may have a service that can be set up ahead of time. Member Services--- transportation services and provide member or plan ID. * Telephone Encounter - Katrin Samano RN - 08/21/2023 11:12 AM EDT Contact Type: Direct contact - Phone call with patient - general Reached Parvez today to discuss care concerns, community resources, food, financial, and transportation. Patient stated that she has people trying to her with local resources and she is doing ok. Patients MRI was rescheduled on 09/04/23 at 2:40pm ([facility]/ [facility] Her daughter istrying to take the day off to take her to this appt. The oncologist does not want it done locally. If her daughter can't take her, there is a friend who said she would ride with her up there. CN alsoencouraged her to call her insurance company at the customer service line on the back of her card to get help with setting up transportation. CN to touch base with patient next week. Patient is experiencing a lot of pain and pressure in rectal area but the Tylenol takes the edge off sometimes. She does not want anything for pain at this time as she is worried about that causing more issues with her bowel movements. Currently her stools are loose and have not been a problem. documented in this encounterMayo [facility] HospitalPage[facility]04-02-2024 Telephone encounter Note* Telephone Encounter - Katrin Samano RN - 08/21/2023 11:12 AM EDT CN attempted a 3-way phone call to discuss coverage for transportation. [facility] customer service was called but they need to speak with patient and not Hog Cutter. Message left asking for a return call to assist with resources and transportation. [facility]- Does not take Medicare, only Medicaid. Patients need to call the number on the back of their card for transportation services to appt. They do not touch the patient and there needs to a ramp. Address: [address] [place] [address] Areas served: [place] and nearby areas Hours: Open ? Closes 5?PM Check with insurance company, may have a service that can be set up ahead of time. Member Services--- transportation services and provide member or plan ID. [facility] Work Phone: 1(242) 720-501604-02-2024 Telephone encounter Note* Telephone Encounter - Katrin Samano RN - 08/21/2023 11:12 AM EDT Contact Type: Direct contact - Phone call with patient - general Reached Parvez today to discuss care concerns, community resources, food, financial, and transportation. Patient stated that she has people trying to her with local resources and she is doing ok. Patients MRI was rescheduled on 09/04/23 at 2:40pm ([facility]). Her daughter istrying to take the day off to take her to this appt. The oncologist does not want it done locally. If her daughter can't take her, there is a friend who said she would ride with her up there. CN alsoencouraged her to call her insurance company at the customer service line on the back of her card to get help with setting up transportation. CN to touch base with patient next week. Patient is experiencing a lot of pain and pressure in rectal area but the Tylenol takes the edge off sometimes. She does not want anything for pain at this time as she is worried about that causing more issues with her bowel movements. Currently her stools are loose and have not been a problem. [facility]04-01-2024 History of Present illness Narrative* Keaton Hu, DO - 08/20/2023 1:30 PM EDT IM PROGRESS NOTE Patient - Parvez Riggins Age - 67 y.o. - 1955 ASSESSMENT & PLAN 1. Adenocarcinoma of rectum ([facility]) -known rectal mass with continued symptoms -her treatment is being held up because of inability to get her MRI scan done. -will contact acute care surgeon to see if we can make arrangements for transportation. Patient was encouraged to speak with her oncologist as well. - CBC auto differential; Future 2. Depression, unspecified depression type -PHQ-9 score 17 today. However, denies suicidal thoughts -currently intermittently using BuSpar, which is not been very helpful -will start mirtazapine q.h.s. to help with sleep - mirtazapine (REMERON) 7.5 mg tablet; Take 1 tablet (7.5 mg total) by mouth nightly. Dispense: 30 tablet; Refill: 1 -patient would benefit from palliative care evaluation, to discuss her end of life goals and wishes. Referral made to [facility] hospice and palliative care per patient preference 3. Hypokalemia due to excessive gastrointestinal loss of potassium -hospitalization reports reviewed. The hypokalemia plus her coughing probably was the trigger for the atrial fibrillation. Need to repeat potassium level to ensure returned to normal. - Basic Metabolic Panel; Future 4. Type 2 diabetes mellitus without complication, without long-term current use of insulin ([facility]) -currently on Lantus 60 units nightly -is still taking her semaglutide 1 mg weekly -may need to stop taking the semaglutide once treatment starts for the adenocarcinoma Subjective FOLLOW-UP: HOSPITAL IN-PATIENT Patient was discharged from the facility on: 01 August 2023 Diagnosis was: Paroxysmal atrial fibrillation Problem or symptoms started as: Palpitations and near-syncope. Presented to ED and found to have atrial fibrillation with RVR. Had marked hypokalemia, and had increased coughing due to URI. Treated with diltiazem drip and transition to oral beta-enio. Work-up and testing included: Surgery or biopsies? No Imaging / Xrays / Scans? Yes Blood work? Yes Consults? No Transfusions, injections or infusions? No This is a new problem. Was discharged with the following treatments or medications: Resume previous medications. The problem is better than at discharge. New problems since discharge include: Continued problems with rectal bleeding and pain. Has known rectal cancer, and missed her scheduled MRI scan at [facility] while in the hospital. The MRI has been rescheduled, but she has no ride to get there in August. Her screening CTs did suggest adenopathyin the chest as well as the pelvis, suggesting metastatic disease. Patient has been very tearful and anxious about this, and is unsure whether she even wants to undergo treatment. A review of systems was negative except for the following: General: fatigue and sleep disturbance Psychiatric: concentration difficulties, depression, and PHQ-9 score is 17 Gastrointestinal: blood in stools, constipation, and occasional rectal pain Musculoskeletal: joint pain. Left knee Exam BP 122/60 (BP Site: Left Arm, BP Postition: Sitting) Pulse 79 Temp 36.9 C (98.4 F) (Tympanic) Resp 18 Ht 170.2 cm (5' 7 ) Wt 87.2 kg (192 lb 4.8 oz) SpO2 98% BMI 30.12 kg/m Physical Exam Vitals reviewed. Constitutional: General: She is not in acute distress. Appearance: She is well-developed. She is obese. She is not toxic-appearing. HENT: Head: Normocephalic. Right Ear: External ear normal. Left Ear: External ear normal. Nose: Nose normal. Mouth/Throat: Mouth: Mucous membranes are moist. Eyes: General: No scleral icterus. Neck: Vascular: No carotid bruit. Cardiovascular: Rate and Rhythm: Normal rate and regular rhythm. Pulses: Normal pulses. Heart sounds: No murmur heard. No gallop. Pulmonary: Effort: Pulmonary effort is normal. Breath sounds: No wheezing or rales. Abdominal: Palpations: Abdomen is soft. Musculoskeletal: General: Normal range of motion. Right lower leg: No edema. Left lower leg: No edema. Skin: General: Skin is warm. Coloration: Skin is not jaundiced. Findings: No bruising. Neurological: General: No focal deficit present. Mental Status: She is alert and oriented to person, place, and time. Sensory: No sensory deficit (Intact vibratory sensation bilaterally on the toes, feet and ankles. Intact monofilament testing on the feet, toes and ankles bilaterally.). Motor: No weakness. Coordination: Coordination normal. Deep Tendon Reflexes: Reflexes are normal and symmetric. Psychiatric: Mood and Affect: Mood normal. Behavior: Behavior normal. Comments: Tearful Meds Current Outpatient Medications: amLODIPine (NORVASC) 10 mg tablet, Take 1 tablet (10 mg total) by mouth respiratory nightly., Disp:90 tablet, Rfl: 1 aspirin 81 mg, Take 1 tablet (81 mg total) by mouth every other day., Disp: , Rfl: atorvastatin (LIPITOR) 40 mg tablet, take 1 tablet by mouth every evening, Disp: 90 tablet, Rfl: 1 busPIRone (BUSPAR) 10 mg tablet, take 1 tablet by mouth twice a day if needed, Disp: , Rfl: clobetasoL (TEMOVATE) 0.05 % cream, Apply 1 Application topically in the morning and 1 Application before bedtime., Disp: 30 g, Rfl: 0 ferrous sulfate (FeroSuL) 325 (65 FE) mg tablet, Take 1 tablet (325 mg total) by mouth every other day., Disp: 45 tablet, Rfl: 0 irbesartan (AVAPRO) 300 mg tablet, Take 1 tablet (300 mg total) by mouth nightly., Disp: , Rfl: LANTUS SOLOSTAR U-100 INSULIN 100 unit/mL (3 mL) insulin pen, inject 70 units subcutaneously every evening (Patient taking differently: Inject 60 Units under the skin nightly.), Disp: 36 mL, Rfl: 1 meclizine (ANTIVERT) 25 mg tablet, Take 1 tablet (25 mg total) by mouth as needed for dizziness., Disp: , Rfl: 0 metoprolol tartrate (LOPRESSOR) 50 mg tablet, Take 1 tablet (50 mg total) by mouth in the morning and 1 tablet (50 mg total) before bedtime., Disp: 90 tablet, Rfl: 3 pen needle, diabetic 32 gauge x 5/32 needle, 1 Pen Needle by miscellaneous route in the morning and 1 Pen Needle before bedtime., Disp: 200 each, Rfl: 1 semaglutide (OZEMPIC) 1 mg/dose (4 mg/3 mL) pen injector, Inject 1 mg under the skin once a week., Disp: 3 mL, Rfl: 2 spironolactone (ALDACTONE) 25 mg tablet, Take 2 tablets (50 mg total) by mouth in the morning., Disp: 90 tablet, Rfl: 0 mirtazapine (REMERON) 7.5 mg tablet, Take 1 tablet (7.5 mg total) by mouth nightly., Disp: 30 tablet, Rfl: 1 Lab Results Admission on 07/30/2023, Discharged on 08/01/2023 Component Date Value Ref Range Status White Blood Cells 07/30/2023 10.7 4.0 - 11.0 X10E9/L Final RBC count 07/30/2023 5.13 3.80 - 5.20 X10E12/L Final Hemoglobin 07/30/2023 13.6 11.7 - 15.5 g/dL Final Hematocrit 07/30/2023 40.1 35 - 47 % Final MCV 07/30/2023 78 (L) 80 - 100 fL Final MCH 07/30/2023 26.5 (L) 27 - 34 pg Final MCHC 07/30/2023 33.9 32 - 36 g/dL Final RDW 07/30/2023 14.4 11.5 - 15.0 % Final Platelets 07/30/2023 504 (H) 150 - 450 X10E9/L Final MPV 07/30/2023 6.5 (L) 7 - 12 fL Final % neutrophils 07/30/2023 73.2 % Final % lymphocytes 07/30/2023 17.5 % Final % monocytes 07/30/2023 8.1 % Final % eosinophils 07/30/2023 0.6 % Final % Basophils 07/30/2023 0.6 % Final Neutrophils Absolute (A) 07/30/2023 7.8 (H) 1.5 - 6.6 X10E9/L Final Lymphocytes Absolute 07/30/2023 1.9 1.0 - 3.5 X10E9/L Final Monocytes Absolute 07/30/2023 0.9 0 - 0.9 X10E9/L Final Eosinophils Absolute 07/30/2023 0.1 0.0 - 0.4 X10E9/L Final Basophils Absolute 07/30/2023 0.1 0.0 - 0.2 X10E9/L Final Sodium 07/30/2023 138 134 - 146 mmol/L Final Potassium, Bld 07/30/2023 2.9 (L) 3.5 - 5.0 mmol/L Final Chloride 07/30/2023 104 98 - 109 mmol/L Final CO2 07/30/2023 26 22 - 32 mmol/L Final Anion gap 07/30/2023 8 5 - 15 mmol/L Final BUN 07/30/2023 9 5 - 27 mg/dL Final Creatinine 07/30/2023 0.98 0.40 - 1.00 mg/dL Final Glucose 07/30/2023 154 (H) 65 - 99 mg/dL Final Calcium 07/30/2023 7.7 (L) 8.5 - 10.5 mg/dL Final Total Protein 07/30/2023 6.4 6.0 - 8.0 g/dL Final Albumin 07/30/2023 3.0 (L) 3.2 - 5.3 g/dL Final Alkaline Phosphatase 07/30/2023 71 39 - 130 U/L Final AST 07/30/2023 20 0 - 41 U/L Final ALT 07/30/2023 11 0 - 31 U/L Final Total bilirubin 07/30/2023 0.7 0.3 - 1.2 mg/dL Final eGFR (CKD-EPI)non-race dependent 07/30/2023 64 >59 ml/min/1.73sq.m Final Troponin I 07/30/2023 <0.01 0.00 - 0.04 ng/mL Final Magnesium 07/30/2023 2.0 1.8 - 2.6 mg/dL Final FLU A PCR 07/30/2023 Negative Negative^Negative Final FLU B PCR 07/30/2023 Negative Negative^Negative Final RSV by PCR 07/30/2023 Negative Negative^Negative Final SARS CoV 2 BY PCR 07/30/2023 Not Detected Not Detected^Not Detected Final Protime 07/30/2023 10.2 9.8 - 13.2 sec Final Inr 07/30/2023 0.9 0.8 - 1.1 Final aPTT 07/30/2023 26 26 - 37 sec Final TSH 07/30/2023 3.58 0.49 - 4.67 uIU/mL Final T4, free 07/30/2023 0.76 0.61 - 1.60 ng/dL Final Specific gravity [facility] 07/30/2023 1.025 1.003 - 1.035 Final Leukocyte esterase [facility] 07/30/2023 Small (A) Negative^Negative Final Nitrite [facility] 07/30/2023 Negative Negative^Negative Final Ph 07/30/2023 7.5 5.0 - 8.5 Final Protein [facility] 07/30/2023 Negative Negative^Negative mg/dL Final Urine glucose [facility] 07/30/2023 Negative Negative^Negative mg/dL Final Ketones [facility] 07/30/2023 Negative Negative^Negative mg/dL Final Urobilinogen [facility] 07/30/2023 0.2 <1.1 eu/dL Final Bilirubin [facility] 07/30/2023 Negative Negative^Negative Final Hemoglobin [facility] 07/30/2023 MODERATE (A) Negative^Negative Final LVOT stroke volume 07/31/2023 59.38 ml Final LV Diastolic Volume 07/31/2023 88.50 mL Final LV Systolic Volume 07/31/2023 32.30 mL Final EF 07/31/2023 64 % Final FS 07/31/2023 29 28 - 44 % Final LVIDd 07/31/2023 4.90 4.76 - 6.61 cm Final LVIDs 07/31/2023 3.50 2.80 - 4.24 cm Final IVS 07/31/2023 1.10 0.6 - 1.1 cm Final PW 07/31/2023 1.00 0.6 - 1.1 cm Final LVOT diameter 07/31/2023 2.00 cm Final TDI 07/31/2023 5.33 cm/s Final MV TDI E' (medial) 07/31/2023 7.29 cm/s Final LA Volume Index 07/31/2023 25.3 mL/m2 Final E/A ratio 07/31/2023 0.78 Final E wave deceleration time 07/31/2023 292.00 msec Final MV Peak E Kia 07/31/2023 67.90 cm/s Final MV Peak A Kia 07/31/2023 86.80 cm/s Final LA size 07/31/2023 3.80 cm Final Aortic root 07/31/2023 3.10 cm Final LA volume 07/31/2023 50.70 cm3 Final RV diastolic dimension (basal) 07/31/2023 32.0 mm Final TAPSE 07/31/2023 1.69 cm Final AV peak kia 07/31/2023 149.00 cm/s Final LVOT peak kia 07/31/2023 0.89 m/s Final AV VTI 07/31/2023 30.40 cm Final LVOT peak VTI 07/31/2023 18.90 cm Final AV mean gradient 07/31/2023 5.00 mmHg Final AV peak gradient 07/31/2023 8.88 mmHg Final AV valve area 07/31/2023 1.95 cm2 Final Valve area - Index 07/31/2023 1.0 Final MV pressure 1/2 time 07/31/2023 86.00 ms Final MV valve area p 1/2 method 07/31/2023 2.56 cm2 Final TR Peak Kia 07/31/2023 2.0 m/s Final TR peak gradient 07/31/2023 16.65 mmHg Final LV ESV A2C 07/31/2023 51.00 mL Final LV ESV A4C 07/31/2023 47.40 mL Final LV RWT 2D 07/31/2023 40.82 Final Echo EF Estimated 07/31/2023 64 % Final AV Velocity Ratio 07/31/2023 0.62 Final Left Ventricle Mass 07/31/2023 188.538545518502348 g Final Interventricular Septum Diastolic * 07/31/2023 11 cm Final E/E' ratio 07/31/2023 12.70 Final RVID d 07/31/2023 3.2 cm Final Est. RA pressure 07/31/2023 3 mmHg Final RA area 07/31/2023 11.4 cm2 Final RV Peak Systolic Pressure 07/31/2023 19 mmHg Final ZLVIDS 07/31/2023 0.12 Final ZLVIDD 07/31/2023 -1.35 Final Energy loss index 07/31/2023 1.34 Final Magnesium 07/31/2023 2.0 1.8 - 2.6 mg/dL Final Sodium 07/31/2023 142 134 - 146 mmol/L Final Potassium, Bld 07/31/2023 3.5 3.5 - 5.0 mmol/L Final Chloride 07/31/2023 109 98 - 109 mmol/L Final CO2 07/31/2023 24 22 - 32 mmol/L Final Anion gap 07/31/2023 9 5 - 15 mmol/L Final BUN 07/31/2023 10 5 - 27 mg/dL Final Creatinine 07/31/2023 1.09 (H) 0.40 - 1.00 mg/dL Final Glucose 07/31/2023 127 (H) 65 - 99 mg/dL Final Calcium 07/31/2023 8.4 (L) 8.5 - 10.5 mg/dL Final eGFR (CKD-EPI)non-race dependent 07/31/2023 56 (L) >59 ml/min/1.73sq.m Final White Blood Cells 07/31/2023 10.8 4.0 - 11.0 X10E9/L Final RBC count 07/31/2023 4.92 3.80 - 5.20 X10E12/L Final Hemoglobin 07/31/2023 13.2 11.7 - 15.5 g/dL Final Hematocrit 07/31/2023 39.2 35 - 47 % Final MCV 07/31/2023 80 80 - 100 fL Final MCH 07/31/2023 26.8 (L) 27 - 34 pg Final MCHC 07/31/2023 33.6 32 - 36 g/dL Final RDW 07/31/2023 15.1 (H) 11.5 - 15.0 % Final Platelets 07/31/2023 480 (H) 150 - 450 X10E9/L Final MPV 07/31/2023 7.2 7 - 12 fL Final Hemoglobin A1C 07/31/2023 6.7 (H) 4.4 - 5.6 % Final Average glucose 07/31/2023 146 mg/dL Final Sodium 07/30/2023 140 134 - 146 mmol/L Final Potassium, Bld 07/30/2023 2.8 (L) 3.5 - 5.0 mmol/L Final Chloride 07/30/2023 105 98 - 109 mmol/L Final CO2 07/30/2023 24 22 - 32 mmol/L Final Anion gap 07/30/2023 11 5 - 15 mmol/L Final BUN 07/30/2023 10 5 - 27 mg/dL Final Creatinine 07/30/2023 1.15 (H) 0.40 - 1.00 mg/dL Final Glucose 07/30/2023 245 (H) 65 - 99 mg/dL Final Calcium 07/30/2023 8.5 8.5 - 10.5 mg/dL Final eGFR (CKD-EPI)non-race dependent 07/30/2023 53 (L) >59 ml/min/1.73sq.m Final Bedside glucose 07/30/2023 185 (H) 65 - 99 mg/dL Final Sodium 07/31/2023 138 134 - 146 mmol/L Final Potassium, Bld 07/31/2023 3.6 3.5 - 5.0 mmol/L Final Chloride 07/31/2023 107 98 - 109 mmol/L Final CO2 07/31/2023 22 22 - 32 mmol/L Final Anion gap 07/31/2023 9 5 - 15 mmol/L Final BUN 07/31/2023 9 5 - 27 mg/dL Final Creatinine 07/31/2023 1.15 (H) 0.40 - 1.00 mg/dL Final Glucose 07/31/2023 144 (H) 65 - 99 mg/dL Final Calcium 07/31/2023 8.0 (L) 8.5 - 10.5 mg/dL Final eGFR (CKD-EPI)non-race dependent 07/31/2023 53 (L) >59 ml/min/1.73sq.m Final Bedside glucose 07/31/2023 217 (H) 65 - 99 mg/dL Final Bedside glucose 07/31/2023 133 (H) 65 - 99 mg/dL Final Sodium 08/01/2023 139 134 - 146 mmol/L Final Potassium, Bld 08/01/2023 3.3 (L) 3.5 - 5.0 mmol/L Final Chloride 08/01/2023 106 98 - 109 mmol/L Final CO2 08/01/2023 24 22 - 32 mmol/L Final Anion gap 08/01/2023 9 5 - 15 mmol/L Final BUN 08/01/2023 9 5 - 27 mg/dL Final Creatinine 08/01/2023 1.10 (H) 0.40 - 1.00 mg/dL Final Glucose 08/01/2023 124 (H) 65 - 99 mg/dL Final Calcium 08/01/2023 7.9 (L) 8.5 - 10.5 mg/dL Final eGFR (CKD-EPI)non-race dependent 08/01/2023 56 (L) >59 ml/min/1.73sq.m Final Bedside glucose 07/31/2023 151 (H) 65 - 99 mg/dL Final Bedside glucose 08/01/2023 166 (H) 65 - 99 mg/dL Final Other Testing X-ray chest 1 view Result Date: 07/30/2023 Single view chest History:dyspnea Difficulty breathing, shortness of breath Comparison: 05/29/2022 Findings: Single portable view of the chest. Stable cardiomediastinal silhouette. No focal opacity, effusion or pneumothorax. Impression: No evidence of acute cardiopulmonary process. Finalized by Chasity Jimenez MD on 07/30/2023 12:13 PM ECG: Keaton Hu DO., [facility] Office: [phone] documented in this encounterBluffton Hospital03-22-2024 NoteCalled patient about a referral for Adenocarcinoma of Rectum, patient states she is already set up with someone in [place] closer to home.[facility]03-21-2024 Miscellaneous Notes* Telephone Encounter - Pauline Fatima LSW - 08/09/2023 3:19 PM EDT SOCIAL WORK FOLLOW UP NOTE: [facility] Date of service:08/09/23 TOPICS ADDRESSED: rescheduled MRI appointment PLAN: Continue follow up as needed F/U APPOINTMENT: 09/04/23 at 2:40pm Assigned SW listed in Care Team tab: Yes SW called and left a detailed message containing information about the Patient's MRI on 09/04/23 at 2:40pm ([facility]/ [facility]). SW mailed out a print out of this appointment to her. SW will remain available and will follow up as appropriate. VICENTE Nash documented in this encounterAdams County [facility]03-20-2024 Miscellaneous Notes* Telephone Encounter - Pauline Fatima LSW - 08/08/2023 10:42 AM EDT SOCIAL WORK FOLLOW UP NOTE: [facility] Date of service:08/08/23 PLAN: Continue follow up as needed Assigned SW listed in Care Team tab: Yes SW called and left a VM asking for a call back. SW needs to update this Patient that her MRI has been rescheduled to 08/[address] [facility]. SW needs to know if the Patient needs a ride and if she needs financial assistance to cover the cost of a taxi cab ride. Awaiting a call back. VICENTE Nash documented in this encounterAdams County Regional Medical Center03-20-2024 History of Present illness Narrative* Loyda Sinha RN - 08/08/2023 9:27 AM EDT Orders for pathology slide review- new rectal cancer documented in this encounterAdams County Regional [facility] Center03-19-2024 History of Present illness Narrative* Grace Noble MD - 08/07/2023 1:45 PM EDT Parvez Riggins is a 67 y.o.female. No LMP recorded. Patient is postmenopausal.. She presents for follow up of vulvascopy. RESULTS DW PT FOLLOWS: Final Pathologic Diagnosis 1. 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 2. Perineum, biopsy: Benign skin with features of lichen sclerosus. PT FOLLOWING UP W CONTACT CENTER TEAM LEAD ONC WELL BECAUSE OF HER HO VULVAR CA ALREADY REFERRED TO CONTACT CENTER TEAM LEAD ONC PREVIOUSLY OB History No obstetric history on file. 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 Hypertension since 2013 Injury of back 2007 had back surgery for that in 2010 Low back pain Panic disorder PONV (postoperative nausea and vomiting) Sinus congestion Sinusitis, chronic Visual impairment glasses Vulva cancer [place] SURGICAL HX Past Surgical History: Procedure Laterality Date BACK SURGERY 2010 lumbar discectomy and fusion CHOLECYSTECTOMY COLONOSCOPY DIAGNOSTIC / SCREENING N/A 06/26/2023 Performed by Chasity Diez DO at [facility] COLONOSCOPY DIAGNOSTIC / SCREENING N/A 05/25/2023 Performed by Keaton Hu DO at [facility] DISSECTION LYMPH NODE INGUINAL FEMORAL N/A 11/01/2018 Performed by Nathaniel Garcias MD at [facility] EGD N/A 05/30/2022 Performed by Chasity Diez DO at [facility] KNEE ARTHROPLASTY KNEE ARTHROSCOPY Left early REPLACMENT TOTAL JOINT KNEE PSI Left 11/13/2016 Performed by Keaton Gibson DO at [facility] REVISON EPISIOTOMY 1981 RIGHT HEMIVULVECTOMY/ BILATERAL INGUINAL SENTINEL LYMPH NODE DISSECTION/ 6X10 CM RIGHT ROTATIONAL SKIN GRAFT N/A 11/01/2018 Performed by Nathaniel Garcias MD at [facility] SINUS SURGERY 2014 SINUS SURGERY TUBAL LIGATION 1981 FAMILY HX Family History Problem Relation Age of Onset Diabetes Mother Stroke Mother Hypertension Father Diabetes Brother Heart attack Paternal Uncle Uterine cancer Maternal Grandmother Diabetes Maternal Grandfather Heart attack Maternal Grandfather Dementia Paternal Grandmother Heart attack Paternal Grandfather Anesthesia problems Neg Hx MEDS Current Outpatient Medications Medication Sig Dispense Refill amLODIPine (NORVASC) 10 mg tablet Take 1 tablet (10 mg total) by mouth respiratory nightly. 90 tablet 1 aspirin 81 mg Take 1 tablet (81 mg total) by mouth every other day. atorvastatin (LIPITOR) 40 mg tablet take 1 tablet by mouth every evening 90 tablet 1 busPIRone (BUSPAR) 10 mg tablet take 1 tablet by mouth twice a day if needed ferrous sulfate (FeroSuL) 325 (65 FE) mg tablet Take 1 tablet (325 mg total) by mouth every other day. 45 tablet 0 irbesartan (AVAPRO) 300 mg tablet Take 1 tablet (300 mg total) by mouth nightly. LANTUS SOLOSTAR U-100 INSULIN 100 unit/mL (3 mL) insulin pen inject 70 units subcutaneously every evening (Patient taking differently: Inject 60 Units under the skin nightly.) 36 mL 1 meclizine (ANTIVERT) 25 mg tablet Take 1 tablet (25 mg total) by mouth as needed for dizziness. 0 metoprolol tartrate (LOPRESSOR) 50 mg tablet Take 1 tablet (50 mg total) by mouth in the morning and 1 tablet (50 mg total) before bedtime. 90 tablet 3 pen needle, diabetic 32 gauge x 5/32 needle 1 Pen Needle by miscellaneous route in the morning and1 Pen Needle before bedtime. 200 each 1 semaglutide (OZEMPIC) 1 mg/dose (4 mg/3 mL) pen injector Inject 1 mg under the skin once a week. 3 mL 2 spironolactone (ALDACTONE) 25 mg tablet Take 2 tablets (50 mg total) by mouth in the morning. 90 tablet 0 No current facility-administered medications for this visit. ALLERGIES Allergies Allergen Reactions Codeine Nausea Tramadol Nausea Review of Systems Review of Systems Objective BP 128/84 Ht 170.2 cm (5' 7 ) Wt 84.3 kg (185 lb 12.8 oz) BMI 29.10 kg/m Physical Exam BP 128/84 Ht 170.2 cm (5' 7 ) Wt 84.3 kg (185 lb 12.8 oz) BMI 29.10 kg/m Assessment/Plan: HO VULVAR CA RECENT BX REVEALS LICHEN SCLEROSUS CLOBETASOL 0.05% RX GIVEN TO STILL FU W CONTACT CENTER TEAM LEAD ONC INSTRUCTED RTO 6MOS FOR RPT VULVOSCOPY MD KARI BURNHAM CMA documented in this encounterChillicothe HospitalTaumatropo Animation [facility] [id number] Miscellaneous Notes* Telephone Encounter - Pauline Fatima LSW - 08/07/2023 1:00 PM EDT SOCIAL WORK FOLLOW UP NOTE: [facility] Date of service:08/07/23 PLAN: Continue follow up as needed Assigned PAUL listed in Care Team tab: Yes SW called and left a VM asking for a return call. Patient needs updated on her new MRI appointment date/time. SW need to know if the Patient needs a ride to this appointment and if she needs financial support to cover the cost of the ride. Awaiting a call back. VICENTE Nash documented in this encounterAdams County Regional [facility] Center03-15-2024 Miscellaneous Notes* Telephone Encounter - Pauline Fatima LSW - 08/03/2023 4:29 PM EDT SOCIAL WORK FOLLOW UP NOTE: [facility] Date of service:08/03/23 Parvez Riggins is being seen for a follow up social work visit. Today's visit includes: patient TOPICS ADDRESSED: cancelled MRI and transportation PLAN: Continue follow up as needed F/U APPOINTMENT: 08/27/23 at 11:20am Assigned PAUL listed in Care Team tab: Yes SW reviewed Patient's chart and noticed that her MRI at [facility] for today (08/02) was cancelledand the reason in Epic states ITD Cx: SYSTEM USE ONLY - Automated Cancel . SW called Patient and she was unaware that her appointment was cancelled. She was in her driveway waiting for the [employer] cab co to arrive.Magda Fitchr called [facility] and confirmed that the Patient's appointment wascancelled by the Patient and they had no openings for today. PAUL called [employer] and cancelled the Pt's ride. Arianna Castillo rescheduled the Patient's MRI to 08/27/23 at 11:20 am. SW left a VM for Patient to confirm the new MRI appointment and make sure that she does not have any conflicts on that day. PAULalso needs to confirm if the Patient needs a ride and financial assistance to cover the cost of a ride. Awaiting a call back from Patient. Pauline Kushal, DOG BEHAVIORIST-S documented in this encounterAdams County Regional Medical Center03-15-2024 Miscellaneous Notes* Telephone Encounter - Jackeline Gould CMA - 08/03/2023 8:34 AM EDT Spoke with patient regarding her CT Abdomen and Pelvis that was scheduled at [facility] on 07/16/23. Patient no showed for her appointment. Patient also requested her MRI order to be sent to [facility] and after speaking with [facility], they stated patient told them she completed it at [facility] but I don't have any record of it being done. Patient stated that she has completed both tests at [facility]. Will call and get reports. documented in this encounterBluffton Hospital03-15-2024 Telephone encounter Note* Telephone Encounter - Jackeline Gould CMA - 08/03/2023 8:34 AM EDT Spoke with patient regarding her CT Abdomen and Pelvis that was scheduled at [facility] on 07/16/23. Patient no showed for her appointment. Patient also requested her MRI order to be sent to [facility] and after speaking with [facility], they stated patient told them she completed it at [facility] but I don't have any record of it being done. Patient stated that she has completed both tests at [facility]. Will call and get reports. [facility]03-06-2024 Miscellaneous Notes* Telephone Encounter - Loyda Sinha RN - 07/25/2023 11:27 AM EST Noted patient rescheduled MRI from 07/27 to 08/01 due to transportation issues. Tumor board rescheduled to 08/08 documented in this encounterAdams County Regional [facility] Center03-01-2024 Miscellaneous Notes* Telephone Encounter - Pauline Fatima LSW - 07/20/2023 11:44 AM EST SOCIAL WORK FOLLOW UP NOTE: [facility] Date of service:07/20/23 Parvez Riggins is being seen for a follow up social work visit. Today's visit includes: patient TOPICS ADDRESSED: community resources and transportation to MRI on 08/03/23 PLAN: Continue follow up as needed Assigned SW listed in Care Team tab: Yes SW called Patient's insurance [facility] Dual Complete [phone] and spokw with Natalia mendes Insurance Account Executive.(Call reference #[id number]) regarding transportation for the Patient's upcoming MRI at [facility]. SW as instructed to call [employer] [phone]. Myrna from [employer] reports that the Patient does not have transportation allows for rides roundtrip rides greater than [address] (no return trip). SW met with construction scheduler Anna to see if there was [facility] within 50 miles of the Patient's residence. Per Anna, the MRI on 07/25/23 at [facility] needs to berescheduled because [facility] is not able to do the MRI that this Patient needs. SW will look into community resources for transportation for this appointment. Patient was rescheduled for a MRI and the new date is 08/03/23 at [facility] at 1320. Patient's appointments with Dr. Mcdonald and Dr. Dee were rescheduled until after the MRI. SW called Patient to update her on the above. A VM was left asking for a return call. Awaiting a call back. Patient called back and was updated on the above. VICENTE Nash documented in this encounterAdams County [facility]02-29-[facility]24 History of Present illness Narrative* Evans Zurita MD - 07/19/2023 1:40 PM EST New Patient Consult REASON FOR VISIT Parvez Riggins is a 67 year old female who is scheduled for a consult at the request of Arturo Whiting rectal cancer. My final recommendations will be communicated back to the requesting physician by the way of the shared medical record, fax, or via US Mail History of Present Illness: Parvez Riggins is a 67 year old female who was referred for evaluation of rectal cancer. She had neverhad a colonoscopy before May but has had cologuard in the past that was negative. During her wellness check for Medicare last year she mentioned some mucus and bloody drainage at which point a rectal exam identified a rectal mass. She has since undergone a colonoscopy with biopsy proven adenocarcinoma. CT A/P showed regional lymphadenopathy. MRI pending. Per patient, she has not had issues with bowel movements. Does endorse a significant amount of mucus drainage. Denies significant rectal bleeding. No unintentional weight loss. Of note, has a history of vulvar cancer that was resected. Recently visited a CONTACT CENTER TEAM LEAD and had biopsies of the area to ensure no recurrence. No radiation in the area. Colonoscopy 06/26/2023- [facility]/Dr Diez -digital rectal exam revealed 5 cm mobil rectal mass palpated 7-8 cm from anal verge. Located predominantly at the posterior bowel wall. -fungating and infiltrating partially obstructing large mass found in mid rectum. Partially circumferential. The mass measured 5 cm in length. Diameter measured 30 mm. Oozing was present. The polyp was removed with hot snare. Polyp resection was incomplete. Area was tattooed distal margin -10 mm polyp was found in anus. Polyp was semi-pedumculated. The polyp was removed with a hot snare. Resection complete. Scan on 07/09/2023 9:52 AM by Provider, External, PA-C: Colonoscopy PATH: Rectal mass - fragments of moderately differentiated infiltrating adenocarcinoma, with associated necrosis Anal verge: partially ulcerated and inflamed ano-rectal mucosa with hyperplastic and reactive changes and associated granulation tissue. Negative for dysplasia or malignancy Initial colonoscopy 05/25/2023 for rectal bleeding -incomplete due to poor bowel prep Followed up with Dr Mcdonald 07/10/2023 PSH: -vulvar cancer with vulvectomy 2019 -Lx [facility] CT C A P 07/16/2023 -Large rectal mass with numerous enlarged perirectal nodes, suspicious for ami metastatic disease. -No additional findings to suggest distant abdominal or pelvic metastatic disease. -Linear bandlike hypodensity within the spleen, suggestive of a splenic infarct. 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 - Left-sided nodular opacities measuring up to 5 mm. Metastatic disease is not excluded. Recommend continued attention to these areas on follow- up exams. -No evidence of intrathoracic lymphadenopathy. MRI scheduled for 07/28/2023 at [facility]- 4.5 on 06/14/2023 PAST MEDICAL HISTORY Diagnosis Date Anxiety Carcinoma of vulva (HCC) Chronic back pain COVID-19 Depression Diabetes (HCC) GERD (gastroesophageal reflux disease) HPV in female Hypertension Ovarian cyst Panic disorder PONV (postoperative nausea and vomiting) Rectal bleeding Rectal cancer (HCC) Rectal mass Sleep apnea Vulval lesion PAST SURGICAL HISTORY Procedure Laterality Date ARTHROSCOPY KNEE DIAGNOSTIC W/WO SYNOVIAL BX SPX Left x2 ARTHRP KNE CONDYLE&PLATU MEDIAL&LAT COMPARTMENTS Left BACK SURGERY HX CHOLECYSTECTOMY HX COLONOSCOPY EGD W/O BRSH SPEC VARICIES INJ LIGATE FALLOPIAN TUBE NASAL ENDOS,DIAG,UNI/ BILATERAL PAST SURGICAL HISTORY OF Dissection of lymph node inguinal femoral PAST SURGICAL HISTORY OF Revision of Episiotomy PAST SURGICAL HISTORY OF 2020 Right Hemivulvectomy/Bilateral inguinal sentinal lymp node dissection TOTAL KNEE REPLACEMENT Left TUBAL LIGATION FAMILY HISTORY Problem Relation Age of Onset Diabetes Mother Stroke Mother Hypertension Father Uterine Cancer Maternal Grandmother Diabetes Maternal Grandfather Heart Attack Maternal Grandfather Dementia Paternal Grandmother Heart Attack Paternal Grandfather Social History Tobacco Use Smoking status: Former Passive exposure: Past Smokeless tobacco: Never Substance Use Topics Alcohol use: Yes Comment: occasional Drug use: Never The patient has the following: Problem List Noted Noted By Resolved Resolved By Hypertension Zabrina Benitez, DARLEEN.SOLE SPLITTER No Diabetes (HCC) Zabrina Benitez APRN.SOLE SPLITTER No MEDICATIONS Current Outpatient Medications Medication Sig Dispense Refill iv contrast (will be provided with radiology test) MRI Rectum Inject, intravenously, once for 1 [...] the MR contrast administration guidelines link. 1 Each 0 enteric contrast (will be provided with radiology test) MRI RECTUM WO/W. Administer, As Directed One Time Only, via Oral, Rectal, both Oral and Rectal, Enteric Tube, Stoma or Indwelling Catheter, Enteric Contrast as designated per enteric contrast guidelines 1 Each 0 iv contrast (will be provided with radiology test) CT Chest W -Inject, intravenously, once for 1 dose.No IV access, insert saline lock prior to the beginning of sedation, infusion, injection of imaging exam. Discontinue saline lock post exam. If Pt. has a central line or IVAD, may access for administration according to line specific nursing protocol. Once exam is complete flush line and de-accessaccording to line specific nursing protocol in the CT contrast administration guidelines link. 1 Each 0 iv contrast (will be provided with radiology test) CT ABD/PEL -Inject, intravenously, once for 1 dose.No IV access, insert saline lock prior to the beginning of sedation, infusion, injection of imaging exam. Discontinue saline lock post exam. If Pt. has a central line or IVAD, may access for administration according to line specific nursing protocol. Once exam is complete flush line and de-accessaccording to line specific nursing protocol in the CT contrast administration guidelines link. 1 Each 0 enteric contrast (will be provided with radiology test) For CT ABD/PEL W IVCON Routine order Administer, As Directed One Time Only, via Oral, Rectal, both Oral and Rectal, Enteric Tube, Stoma or Indwelling Catheter, Enteric Contrast as designated per enteric contrast guidelines 1 Each 0 aspirin, enteric coated (ASPIRIN, ENTERIC COATED) 81 mg EC tablet Take 81 mg by mouth every other day. busPIRone (BUSPAR) 10 mg tablet Take by mouth. ferrous sulfate 325 mg (65 mg iron) tablet Take 325 mg by mouth every 48 hours. meclizine (ANTIVERT) 25 mg tab Take by mouth at bedtime as needed. nystatin (MYCOSTATIN) ointment Apply 1 Application to affected area. potassium chloride ER (KLOR-CON) 20 mEq tablet Take 1 tablet by mouth every morning. Potassium Gluconate 595 mg (99 mg) tab Take 595 mg by mouth. semaglutide (OZEMPIC) 1 mg/dose (4 mg/3 mL) pen Inject 1 mg subcutaneously one time a week. insulin glargine (LANTUS SOLOSTAR U-100 INSULIN) 100 unit/mL (3 mL) Inject subcutaneously. fluconazole (DIFLUCAN) 150 mg tablet Take 150 mg by mouth as directed. irbesartan (AVAPRO) 75 mg tablet Take 75 mg by mouth daily at bedtime. insulin lispro (HUMALOG KWIKPEN INSULIN) 100 unit/mL inpn Inject subcutaneously as directed. sitaGLIPtin-metFORMIN (JANUMET) 50-1,000 mg per tablet Take 1 tablet by mouth two times a day with meals. amLODIPine (NORVASC) 10 mg tablet Take 10 mg by mouth once daily. Acetaminophen 500 mg cap Take 500 mg by mouth as needed. No current facility-administered medications for this visit. CURRENT ALLERGIES ALLERGIES Allergen Reactions Codeine Other: See Comments Nausea Tramadol Vomiting PHYSICAL EXAMINATION BP 135/85 Pulse 77 Resp 16 Ht 5' 7 (1.70m) Wt 187 lb 2.7 oz (84.9kg) BMI 29.31 kg/(m^2). General Appearance: Well appearing, alert, in no acute distress Skin: Skin color, turgor normal Head: Normocephalic, Oropharynx: moist mucous membranes Lungs: Non-labored breathing, CTA Heart: regular rate/rhythm Extremities: No deformities or edema Abdomen: Abdomen soft, non-tender. No masses, no hernia Anorectal: Normal external exam, ROGER-rectal mass appears to be prolapsing down to approximately 7 to 8 cm; well above the anorectal ring Vaginal labial skin with white pale scarring, multiple recent biopsy sites not completely healed. Anoscopy-deferred Marketing Support Assistant- yes Filomena Diagnostic tests reviewed for today's visit: I have confirmed and edited as necessary, the PFSH and ROS obtained by others. Assessment ASSESSMENT Newly diagnosed rectal cancer which appears to be locally advanced with ami involvement by CT Also with history of vulvar cancer and recent biopsy RECOMMENDATION - will f/u results of vulvar punch biopsies - follow-up MRI results for final staging - appreciate oncology and rad onc planning for neoadjuvant treatement - Will need to complete staging workup with MRI pelvis; this is ordered and pending -She has already been seen by medical oncology and radiation oncology and I appreciate their input - We had a long discussion regarding the treatment of rectal cancer including the likelihood of neoadjuvant chemoradiation. We also discussed that surgical resection will result in temporary diverting ileostomy. With the location of his tumor this would most likely be the case. Decision on total neoadjuvant treatment prior to surgery also is a consideration pending the MRI. - Will present case at next tumor board once MRI completed - final plans pending results of staging/MRI Evans Zurita MD Medical Decision Making: Data Reviewed: Tests & Documents Reviewed/ordered: Review of Pathology Review of Imaging: CT Abdomen, CT Pelvis, CT chest Review of Labs: CBC, BMP, CEA Review of Procedures / Tests: Colonoscopy I have independently interpreted: CT Abdomen, CT Pelvis, CT Chest I have discussed the patient's treatment plan and/or results with the patient, her daughter and referring physicians. Risk of morbidity, mortality and/or complications of treatment plan: high documented in this encounterAdams County [facility] Center02-28-2024 History of Present illness Narrative* JESSICA French - 07/18/2023 1:30 PM EST Subjective: Parvez is a 67 y.o. female here for consultation from for evaluation and management of vulvar pain and history of vulvar carcinoma. Patient was previously diagnosed with squamous cell carcinoma of the vulva in 2019 and underwent ruddy vulvectomy on the right side. She has followed up with benign gynecology since that time. She recently was a consultation with General surgery for new rectal mass. She underwent several biopsies which revealed adenocarcinoma of the rectum. [facility] and surgical planning. She was recently seen in the office by Dr. Noble for recent skin changes of the vulva. Several biopsies were performed yesterday and pathology is pending. Patient states that she often has vulvar itching and irritation without bleeding or drainage. This is mostly on the right side where her scars are however the irritation can be diffuse. She states this is not as severe as when she had vulvar cancer. She was applying a cream which she can not state the name of for awhile which helped with tissue breakdown. She has not currently using any topical products on the vulva. PMH is significant for DM and HTN. Pap smear history: 06/18/23: nilm, hpv negative 04/02/19: nilm, hpv negative Oncology History Overview Note 2018 - SCC of the right vulva, s/p ruddy-vulvectomy Jun 2023 - adenocarcinoma of the rectum, est w [facility] Parvez : Denies Early satiety Denies Abdominal distention Denies Leg swelling Denies Shortness of breath Denies Vaginal bleeding Denies Change in bowel habits Denies Change in bladder habits Denies Nausea and vomiting All other systems negative, unless specifically noted in HPI. Past Gynecologic History: OB History No obstetric history on file. No LMP recorded. Patient is postmenopausal. Hormonal Contraceptives No HRT use No History of abnormal pap Pt reported HPV and subsequent laser procedure in her 20s, recent history is negative per epic records Past Surgical History: Procedure Laterality Date BACK SURGERY 2010 lumbar discectomy and fusion CHOLECYSTECTOMY COLONOSCOPY DIAGNOSTIC / SCREENING N/A 06/26/2023 Performed by Chasity Diez DO at [facility] COLONOSCOPY DIAGNOSTIC / SCREENING N/A 05/25/2023 Performed by Keaton Hu DO at [facility] DISSECTION LYMPH NODE INGUINAL FEMORAL N/A 11/01/2018 Performed by Nathaniel Garcias MD at [facility] EGD N/A 05/30/2022 Performed by Chasity Diez DO at [facility] KNEE ARTHROPLASTY KNEE ARTHROSCOPY Left early REPLACMENT TOTAL JOINT KNEE PSI Left 11/13/2016 Performed by Keaton Gibson DO at [facility] SUR[facility]ERY REVISON EPISIOTOMY 1981 RIGHT HEMIVULVECTOMY/ BILATERAL INGUINAL SENTINEL LYMPH NODE DISSECTION/ 6X10 CM RIGHT ROTATIONAL SKIN GRAFT N/A 11/01/2018 Performed by Nathaniel Garcias MD at [facility] SINUS SURGERY 2013 SINUS SURGERY TUBAL LIGATION 1980 Past Medical History: Diagnosis Date Anxiety Arthritis Breast disorder Depression Diabetes mellitus type 2, controlled ([facility] Dizziness GERD (gastroesophageal reflux disease) 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 Hypertension since 2013 Injury of back 2007 had back surgery for that in 2010 Low back pain Panic disorder PONV (postoperative nausea and vomiting) Sinus congestion Sinusitis, chronic Sleep apnea better since losing 65 pounds No Cpap since weight loss Visual impairment glasses Vulva cancer ([facility]) Family History Problem Relation Age of Onset Diabetes Mother Stroke Mother Hypertension Father Diabetes Brother Heart attack Paternal Uncle Uterine cancer Maternal Grandmother Diabetes Maternal Grandfather Heart attack Maternal Grandfather Dementia Paternal Grandmother Heart attack Paternal Grandfather Anesthesia problems Neg Hx Social History Tobacco Use Smoking status: Former Types: Cigarettes Quit date: 1975 Years since quittin.1 Smokeless tobacco: Never Tobacco comments: smoked for 1 year when was age 18 Substance Use Topics Alcohol use: Yes Alcohol/week: 1.0 standard drink of alcohol Types: 1 Glasses of wine per week Comment: socially Review of Symptoms: Pertinent items are noted in HPI. Objective: BP 137/90 Pulse 91 Temp 37.1 C (98.7 F) (Oral) Resp 18 Ht 170.5 cm (5' 7.13 ) Wt 85.7 kg (189 lb) SpO2 100% BMI 29.49 kg/m ECO- Symptomatic; fully ambulatory General appearance: alert, appears stated age and cooperative Head: Normocephalic, without obvious abnormality, atraumatic Lungs: clear to auscultation bilaterally Breasts: deferred Heart: regular rate and rhythm, S1, S2 normal, no murmur, click, rub or gallop Abdomen: soft, nontender, without masses or organomegaly Pelvic: vulva with diffuse atrophy and hypopigmentation, biopsy sites healing well. There are raised white lesions at 6:00 and 8:00 concerning for dysplasia Extremities: extremities normal, atraumatic, no cyanosis or edema Pulses: 2+ and symmetric Skin: Skin color, texture, turgor normal. No rashes or lesions Lymph nodes: Cervical, supraclavicular, and axillary nodes normal. Neurologic: Grossly normal Labs: Lab Results Component Value Date WBC 6.9 06/26/2023 HGB 11.8 06/26/2023 HCT 34.4 (L) 06/26/2023 MCH 26.9 (L) 06/26/2023 MCHC 34.4 06/26/2023 PLT 385 06/26/2023 MPV 6.7 (L) 06/26/2023 RDW 14.5 06/26/2023 Lab Results Component Value Date BUN 6 06/26/2023 K 2.3 (LL) 06/26/2023 CL 108 06/26/2023 ALBUMIN 3.5 06/12/2023 AST 12 06/12/2023 AST 33 03/21/2021 No results found for: GGT No results found for: LDH Lab Results Component Value Date MG 1.8 03/24/2021 No results found for: PHOS No results found for: URIC Assessment: Patient is diagnosed with Patient Active Problem List Diagnosis Primary osteoarthritis of left knee Vulvar lesion Carcinoma of vulva, FIGO stage IB (CMS-HCC) Squamous cell carcinoma of vulva (CMS-HCC) COVID-19 Esophageal obstruction due to food impaction Food bolus obstruction of intestine Hypertension Type 2 diabetes mellitus with microalbuminuria, with long-term current use of insulin ([facility] Rectal bleeding Rectal mass Plan: 1. Vulvar Cancer/Vulvar Lesions: Widespread atrophy with concern for possible lichen sclerosus vs dysplasia. Awaiting pathology results. Explained that following with our team with her history of rectal cancer and new vulvar lesions is appropriate. Determining the interval of these visits and any interventions will be based on surgical pathology results. In the meantime I have provided samples ofthe magic which can be soothing to the area. No signs of current infection. Encouraged her to avoidthe biopsy sites while applying the cream. 2. Rectal Cancer: continue [facility]up [facility] *The patient has a documented plan of care to address pain. All questions were answered to the patient's satisfaction. She is agreeable to this plan of care. *This note was completed using a voice highway engineering teacher system. Every effort was made to ensure accuracy. However, inadvertent computerized highway engineering teacher errors may be present. .Total time spent was 45 minutes: Preparing to see the patient (e.g., review of tests) Performing a medically appropriate examination and/or evaluation Counseling and educating the patient/family/caregiver Documenting clinical information in the electronic or other health record Care coordination (not separately reported) Filomena Avendano PA-C, RD, IF JESSICA French 07/18/23 1344 documented in this encounterBluffton Hospital02-27-2024 History of Present illness Narrative* Grace Noble MD - 07/17/2023 1:30 PM EST Vulvoscopy Procedure Note Indications: ho vulvar ca and now recent skin changes and symptoms. Procedure Details The risks and benefits of the procedure and both verbal and written informed consent obtained. Speculum placed in vagina and excellent visualization of cervix achieved, cervix swabbed x 3 with acetic acid solution. Findings: Cervix: ; . Vaginal inspection: . Vulvar colposcopy: acetic acid applied o vulvar tissue, lesion(s) noted at 6 and 8 o'clock, skin prepped with Betadine and local 1% lidocaine, 4 mm punch biopsies taken at 6and 8 o'clock, and hemostasis achieved by silver nitrate. Specimens: rt vulvar and perineal Complications: none. Plan: Specimens labelled and sent to Pathology. Will base further treatment on Pathology findings. Post biopsy instructions given to patient. Return to discuss Pathology results in 2 weeks. GRACE NOBLE MD documented in this encounterBluffton Hospital02-26-2024 History of Present illness Narrative* Nellie Ray RN - 07/16/2023 8:30 AM EST Radiology Service Progress Note DATE OF SERVICE: July 16, 2023 TIME: 8:26 AM PATIENT WEIGHT: 188LBS PATIENT IDENTITY VERIFICATION COMPLETED USING TWO (2) STANDARD IDENTIFIERS: Name and Date of confirmed by patient verbally. FALL SCREENING: Has the patient had 2 falls in the last year or 1 fall with injury or currently using an Ambulatory Assistive Device (Walker, Cane, Wheelchair, Crutches, etc.)? No PATIENT GENDER DATA: Female. status: : No status: NO. ALLERGIES: Reviewed and unchanged CONTRAST ALLERGY: No EXAM: CT -CONTRAST INDUCED NEPHROPATHY RISK FACTORS: Patient age > 60 years CREATININE: Creatinine Date Value Ref Range Status 07/11/2023 1.11 (H) 0.58 - 0.96 mg/dL Final Estimated Glomerular Filtration Rate Date Value Ref Range Status 07/11/2023 55 (L) >=60 mL/min/1.73m Final Comment: Estimated Glomerular Filtration Rate (eGFR) is calculated using the 2020 CKD-EPI creatinine equation. This equation utilizes serum creatinine, sex, and age as parameters. The creatinine assay has traceable calibration to isotope dilution- mass spectrometry. Refer to KDIGO guidelines for clinical interpretation. In patients with unstable renal function, e.g. those with acute kidney injury, the eGFRmay not accurately reflect actual GFR. P.O.C.T. RESULTS: POC done: Yes, See Lab Tab July 16, 2023 TREATMENT: N/A IV SITE: Ambulatory: A peripheral IV was started in the Left antecubital site with a Angio cath: 20gauge. IV SITE APPEARANCE: Clean,Dry and Intact SIGNATURE: Nellie Ray RN PATIENT NAME: Parvez Riggins DATE: July 16, 2023 TIME: 8:26 AM * Livier Jordan RT(R) - 07/16/2023 8:30 AM EST Radiology Service Progress Note PATIENT NAME: Parvez Riggins DATE OF SERVICE: July 16, 2023 TIME: 8:45 AM PATIENT IDENTITY VERIFICATION COMPLETED USING TWO (2) IDENTIFIERS: Name and Date of confirmedby patient verbally. FALL SCREENING: Has the patient had 2 falls in the last year or 1 fall with injury or currently using an Ambulatory Assistive Device (Walker, Cane, Wheelchair, Crutches, etc.)? No PATIENT GENDER DATA: Female. status: : No status: NO. PATIENT RELEVANT IMPLANT DATA REVIEWED: Not Applicable PATIENT PRESENTS WITH AN IMPLANTABLE OR ATTACHED RESEARCH TECHNICIAN: No RADIOLOGY DEPARTMENT: CT; Exam(s) Completed: Chest Abdomen Pelvis With IV and Oral contrast PERIPHERAL IV DATA: Site assessment: Clean,Dry and Intact, Site disposition Discontinued SIGNED BY: RT Renetta(R) July 16, 2023 8:45 AM documented in this encounterAdams County [facility] Center02-23-2024 Miscellaneous Notes* Telephone Encounter - Pauline Fatima LSW - 07/13/2023 10:04 AM EST SOCIAL WORK FOLLOW UP NOTE: [facility] Date of service:07/13/23 PLAN: Continue follow up as needed Assigned PAUL listed in Care Team tab: Yes SW called Patient and attempted to leave a VM, but her voicemail message sounded like two recordings were talking in a echo-like fashion. PAUL was calling to inquire if the Patient needs transportationfor her upcoming appointment with Dr. Zurita on at [facility]. PAUL will be calling the Patient's insurance to book a ride for her appointment on 07/24 at [facility]. PAUL will try again to reach this Patient to confirm her transportation needs. VICENTE Nash documented in this encounterAdams County [facility] Center02-21-2024 History of Present illness Narrative* Pauline Fatima LSW - 07/11/2023 4:44 PM EST .PSYCHOSOCIAL SCREENING ASSESSMENT Date of Service: July 12, 2023 Parvez Riggins is a 67 year old female being seen for initial social work assessment. Diagnosis: rectal cancer New Primary Oncologist: Dr. Arturo Mcdonald Radiation Oncologist: Dr. Chava Dee Goals of Care: Curative intent Today's visit includes: self/patient Family History of Cancer: not discussed SUPPORT NETWORK: Social Connections: Not on file Marital status: Child/Children: Yes. How many? 2 (a son and a daughter) healthcare liaison arrangements needed: Na Home Health Provider: No Community Services: No Zohreh Identified: Yes Orthodox/Spirituality: Non-Religion Are these practices or beliefs that may affect or influence treatment? 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 N/A Financial Distress: Yes, What assistance is needed? Utilities, Transportation, and Food/meals : No FOOD INSECURITY Within the past year, have you worried about how you would buy or obtain food? Yes, Explore resources for assistance with food pantries and SNAP LIVING ARRANGEMENTS: Type: House- independent ranch Resides with: Alone Transportation Needs: Not on file FUNCTIONAL STATUS: Cognitive limitations: none Physical limitations: none Language barrier: No Hearing Impaired: No Speech Impaired: No Visual Impairments: Yes, wears corrective lenses Special considerations/accommodations needed: No HEALTH LITERACY: Do you have difficulty understanding medical instructions or other written materials you receive from you doctor or pharmacy? Not asked Do have difficulty filling out medical forms by yourself? Not asked The following interventions were put into place: NA MEDICATION ADHERENCE: Within the past 2 weeks, have you had difficulty remembering to take your medicine? Not asked Within the past 2 weeks, did you ever miss taking your medications for reasons other than forgetting? No The following interventions were put into place: NA MENTAL HEALTH HISTORY: No History of combat/trauma: not asked Intimate Partner Violence: Not on file Substance Use and Treatment History: denied History of Abuse: Unknown Issues with: Sleep:Yes Eating:No Exercising: N/A Stress Management: Yes ADVANCE DIRECTIVES/LEGAL DOCUMENTS: Living Will: Not addressed during this encounter Scanned into EPIC: Not addressed during this encounter Health Care Durable Power of Machinist Set Up: Not addressed during this encounter Scanned into EPIC: Not addressed during this encounter Guardianship: NA Scanned into EPIC:NA Reasons Advanced Directives were not Addressed: Time constraints COPING STATUS: Stress: Not on file Coping Strengths: successful managing past crises self advocate ability to plan able to communicate effectively Current affect/mood: appropriate History of Loss: Yes, Adjustment to diagnosis: reflecting understanding BARRIERS/CARE CHALLENGES: Limited support systems Limited/No Income Transportation issues Are barriers/care challenges identified likely to have an impact on the patient's quality of life during treatment? Yes Practical Concerns INTERVENTIONS/REFERRALS TO BE PROVIDED: Monitor patient response to treatment Provide emotional support to patient/family Referral to community resource Assist with financial support applications Continue follow up as needed Resources and Referrals: Internal: NA External: Other [facility] CLINICAL IMPRESSION: Patient is a 67 year old female with a diagnosis of rectal cancer. Patient lives alone in [place], [place]. Patient has limited support. Patient is a member of the [facility] in [place].Patient's dog Enrique accompanied her today. Patient is disabled/retired. Patient worked for [employer] for several years before becoming injured on the job. Patient mentioned that she has financial concerns. Discussed that the [facility] has a cancer care fund that provides $500 per rolling calendar. Application was provided and the physician authorization was completed for the Patient. Patient requests transportation for an upcoming appointment on 07/25/[address] Zurita at [facility]. SW will contact the Patient's insurance provider and inquire about booking a ride for this Patient. SW will continue to follow this Patient and assist as needed. Psychosocial Risk Criteria If positive for one or more of the following risk criteria, follow up every 30 days Age: NA Mental Health: NA Practical Needs: Financial/Insurance Transportation Limited Social Support PLAN: Follow up PRN Follow up appointment with SW in: PRN Assigned SW listed in Care Team tab: Yes VICENTE Nash documented in this encounterAd[facility] History of Present illness Narrative* Patricia Dee MD - 07/11/2023 2:43 PM EST Radiation Oncology - New Patient/Consult Note PATIENT NAME: Parvez Riggins PATIENT REQUESTING PROVIDER: Dr. Mcdonald DIAGNOSIS: 67 year old female with newly diagnosed rectal cancer, previous history of vulvar cancer. HPI: 67 year old female with above diagnosis, who presents for an opinion regarding the role of radiation therapy in the management of the patient's disease. Final recommendations will be communicated back to the requesting physician by way of the shared medical record, or letter to requesting physician via US mail. Patient presented with bowel changes including change in stool caliber, looser bowel movements withmucus, episodic blood per rectum. Patient has a history of squamous cell carcinoma of the vulva status post right colectomy 2018, no adjuvant treatment required. Initial colonoscopy demonstrating a rectal mass, described at 10 cm from anal verge. Biopsy showingsuggestive of adenocarcinoma. She underwent further evaluation with Dr. Diez. Colonoscopy on 06/26/2023 demonstrating a 5 cm in length, 3 cm diameter rectal mass approximately 8 cm from the anal verge. Described as fungating partially obstructing involving two thirds of the lumen. None circumferential predominantly at the posterior bowel wall. Multiple diverticuli within the sigmoid and descending colon. 10 mm polyp found inthe anal region, biopsied. Rectal mass resected with tattoo placed at the area of origin. Pathology demonstrating moderately differentiated infiltrating adenocarcinoma with associated necrosis. Additional biopsy anal verge showing partially ulcerated and inflamed anorectal mucosa with hyperplastic and reactive changes, negative for dysplasia or malignancy. ALLERGIES Allergen Reactions Codeine Other: See Comments Nausea Tramadol Vomiting PAST MEDICAL HISTORY Diagnosis Date Anxiety Carcinoma of vulva (HCC) Chronic back pain COVID-19 Depression Diabetes (HCC) GERD (gastroesophageal reflux disease) HPV in female Hypertension Ovarian cyst Panic disorder PONV (postoperative nausea and vomiting) Rectal bleeding Rectal cancer (HCC) Rectal mass Sleep apnea Vulval lesion Prior radiation therapy, collagen vascular disease, or inflammatory bowel disease: No Any implanted or external electric devices? No status: Patient states there is no possibility she is at this time. Educated on risks of during treatment. PAST SURGICAL HISTORY Procedure Laterality Date ARTHROSCOPY KNEE DIAGNOSTIC W/WO SYNOVIAL BX SPX Left x2 ARTHRP KNE CONDYLE&PLATU MEDIAL&LAT COMPARTMENTS Left BACK SURGERY HX CHOLECYSTECTOMY HX COLONOSCOPY EGD W/O BRSH SPEC VARICIES INJ LIGATE FALLOPIAN TUBE NASAL ENDOS,DIAG,UNI/ BILATERAL PAST SURGICAL HISTORY OF Dissection of lymph node inguinal femoral PAST SURGICAL HISTORY OF Revision of Episiotomy PAST SURGICAL HISTORY OF 2020 Right Hemivulvectomy/Bilateral inguinal sentinal lymp node dissection TOTAL KNEE REPLACEMENT Left TUBAL LIGATION FAMILY HISTORY Problem Relation Age of Onset Diabetes Mother Stroke Mother Hypertension Father Uterine Cancer Maternal Grandmother Diabetes Maternal Grandfather Heart Attack Maternal Grandfather Dementia Paternal Grandmother Heart Attack Paternal Grandfather Social History Tobacco Use Smoking status: Former Years: 1 Types: Cigarettes Passive exposure: Past Smokeless tobacco: Never Substance Use Topics Alcohol use: Yes Comment: occasional Drug use: Never CONTACT CENTER TEAM LEAD HISTORY: The patient is postmenopausal . COMPLETE REVIEW OF SYSTEMS: GENERAL: feeling well without fatigue, no recent change in weight NECK: denies swelling or pain in neck RESPIRATORY: no cough, no wheezing or shortness of breath CARDIOVASCULAR: no chest pain, no palpitations GI: normal appetite, tolerating PO well, no nausea. : urination is normal CONTACT CENTER TEAM LEAD: denies abnormal vaginal bleeding, no vaginal discharge, no breast mass/tenderness SKIN: no rash NEURO: no numbness or paresthesias and no weakness of the extremities As noted in HPI PHYSICAL EXAM: VS: BP 112/77 Pulse 99 Temp 36.6 C (97.8 F) Resp 16 Wt 86.8 kg (191 lb 5.8 oz) SpO2 97% BMI 29.97 kg/m KPS: 90 General Appearance: Alert and oriented. No acute distress. HEENT: NCAT. Sclera anicteric. PERRL. EOMI. Neck: Normal ROM. No palpable cervical or supraclavicular adenopathy. Chest: No respiratory distress. Lungs clear to auscultation bilaterally. Heart: Regular rate and rhythm. Abdomen: Soft. Nontender. Nondistended. Musculoskeletal: No edema. Normal ROM in extremities. No bone or spine tenderness. Neuro: Speech fluent. Gait normal. No focal deficits. Skin: No rashes noted Lymphatics: No palpable lymphadenopathy. Hematologic: No signs of active bleeding. CONTACT CENTER TEAM LEAD: External genitalia normal, status post right Ruddy vulvectomy no suspicious lesions notable no palpable inguinal adenopathy Rectal: No anal lesions notable posterior mass distal rectum barely palpable RADIOLOGY/LABORATORY DATA: CEA 06/14/2023: 4.5 Latest Reference Range & Units 07/11/23 15:47 Sodium 136 - 144 mmol/L 142 Potassium 3.7 - 5.1 mmol/L 3.0 (L) Chloride 97 - 105 mmol/L 102 CO2 22 - 30 mmol/L 28 BUN 7 - 21 mg/dL 8 Creatinine 0.58 - 0.96 mg/dL 1.11 (H) Glucose 74 - 99 mg/dL 206 (H) Protein, Total 6.3 - 8.0 g/dL 6.7 Calcium 8.5 - 10.2 mg/dL 9.3 Albumin 3.9 - 4.9 g/dL 3.6 (L) Bilirubin, Total 0.2 - 1.3 mg/dL 0.8 Alkaline Phosphatase 34 - 123 U/L 105 ALT 7 - 38 U/L 10 AST 13 - 35 U/L 14 Anion Gap 9 - 18 mmol/L 12 eGFR >=60 mL/min/1.73m 55 (L) Ferritin 14.7 - 205.1 ng/mL 42.8 Iron 41 - 186 ug/dL 51 TIBC 232 - 386 ug/dL 277 Transferrin Saturation 15.0 - 57.0 % 18.4 WBC 3.70 - 11.00 k/uL 10.04 RBC 3.90 - 5.20 m/uL 4.77 Hemoglobin 11.5 - 15.5 g/dL 12.4 Hematocrit 36.0 - 46.0 % 38.3 Platelet Count 150 - 400 k/uL 469 (H) MCV 80.0 - 100.0 fL 80.3 MCH 26.0 - 34.0 pg 26.0 MCHC 30.5 - 36.0 g/dL 32.4 MPV 9.0 - 12.7 fL 8.5 (L) RDW-CV 11.5 - 15.0 % 13.3 DTYPE Auto Neut% % 67.0 Abs Neut (ANC) 1.45 - 7.50 k/uL 6.73 Lymph% % 20.9 Abs Lymph 1.00 - 4.00 k/uL 2.10 Jeff [place]% % 7.8 Abs [place] <0.87 k/uL 0.78 Eosin% % 3.1 Abs Eosin <0.46 k/uL 0.31 Baso% % 0.9 Abs Baso <0.11 k/uL 0.09 Immature Gran % % 0.3 IMMATURE GRANS (ABS) <0.10 k/uL 0.03 NRBC /100 WBC 0.0 Absolute nRBC <0.01 k/uL <0.01 (L): Data is abnormally low (H): Data is abnormally high ASSESSMENT AND PLAN: Rectal cancer likely locally advanced. Is undergoing further staging and radiographic evaluation including CT abdomen and pelvis and rectal MRI. Recommendations for management will pend on these studies as well as multidisciplinary discussion. Briefly discussed potential need for pelvic/rectal radiation with concurrent chemotherapy. Will plan to have patient back after her workup is completed. Signed by: Patricia Dee MD cc: Keaton Hu, [address] [place] [address] SELF documented in this encounterAd[facility]02-[facility] Nurse Note* More Madsen LPN - 07/11/2023 2:37 PM EST Pacemaker/Defibrillator?N Previous Cancer(s)?Vulva Cancer Previous Radiation?N Lupus/Scleroderma?N On body monitoring device?N documented in this encounterAdams County [facility] Center02-21-2024 Miscellaneous Notes* Telephone Encounter - Loyda Sinha RN - 07/11/2023 11:30 AM EST Patient contacted. Assisted with appt with Dr Zurita on 1: 40 pm. Directions/location provided. Patient history updated. Patient appreciative of the call today and assistance. Office number provided for future correspondence. * Telephone Encounter - Anna Clay - 07/10/2023 4:00 PM EST Hello! Dr. Mcdonald saw this new patient today and would like to refer her to Dr. Zurita or [facility] KIRBY. Thank you! Anna Clay documented in this encounterAdams County [facility] Center02-20-2024 History of Present illness Narrative* Pauline Fatima LSW - 07/10/2023 3:52 PM EST Social Work Problem Referral Note INFORMATION/REFERRAL : Parvez Riggins 67 year old female was referred by physician - Dr. Arturo Mcdonald to [facility] for the following reason(s): financial assistance - meals, parking, etc. PERSONS INTERVIEWED: patient INTERVENTION: Patient agreed to meet with this SW on 07/11/23 after her appointment with Dr. Arias discuss her current needs/concerns. Affect/Mood: The patient is noted as appropriate and flat IDENTIFIED PROBLEMS/NEEDS: to be determined IMPRESSION/PLAN: SW received a referral from Dr. Mcdonald. SW met briefly with Patient at the checkout desk. Patient is agreeable to meet with this SW tomorrow after her appointment with Dr. Dee. SW will remain available and will follow up as appropriate F/U APPOINTMENT: 07/11/23 after her appointment with Dr. Dee Assigned SW listed in Care Team tab: Yes VICENTE Nash documented in this encounterAdams County [facility] Center02-20-2024 History of Present illness Narrative* Arturo Mcdonald MD - 07/10/2023 2:42 PM EST This note was created using NoteWriter. Subjective Parvez Riggins is a 67 year old female with a history of hypertension, DM and vulvar cancer who presents top be established for her recently identified rectal mass. HPI Ms. Riggins reports that she saw her PCP in May with the complaint of mucus in her stool. She endorses pain with defecation and some subtleblood. She subsequently underwent a colonoscopy which revealed a large fungating mass in the mid rectum and also a 10mm polyp in the anus,. 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 A repeat colonoscopy with biopsy and tattoomarking was performed by surgery.CEA elevated at 4.5 ng/mL.She has occasional bleeding Review of Systems Constitutional: Positive for chills. Respiratory: Negative for shortness of breath. Cardiovascular: Negative for chest pain. Gastrointestinal: Positive for blood in stool, diarrhea and rectal pain. Psychiatric/Behavioral: Positive for agitation. The patient is nervous/anxious. Objective BP 138/81 Pulse 102 Temp 36.3 C (97.3 F) (Temporal) Resp 16 Ht 170.2 cm (5' 7 ) Wt 87.3 kg (192 lb 7.4 oz) SpO2 100% BMI 30.14 kg/m Physical Exam HENT: Head: Normocephalic and atraumatic. Cardiovascular: Rate and Rhythm: Normal rate and regular rhythm. Heart sounds: No murmur heard. No gallop. Pulmonary: Effort: Pulmonary effort is normal. Breath sounds: No wheezing or rales. Abdominal: General: There is no distension. Palpations: Abdomen is soft. There is no mass. Tenderness: There is no abdominal tenderness. There is no guarding or rebound. Assessment and Plan Rectal cancer- Staging studies with CT chest and Abdomen and also MRI of the rectum to be scheduledat [facility] Referral to DARIUSZ Moe after multidisciplinary discussion Will need microsatellite status on the biopsy specimen as well. Social work consult for transportation needs [employer] a swell. See after above studies I spent a total of 60 minutes on the date of the service which included preparing to see the patient, [id number] patient care, completing clinical documentation, obtaining and/or reviewing separately obtained history, performing a medically appropriate examination, counseling and educating the pat ient/family/caregiver, and ordering medications, tests, or procedures. documented in this encounterAdams County Regional Medical Center02-15-2024 Miscellaneous Notes* Telephone Encounter - Alyssa Najera - 07/05/2023 9:[address] Diez's office is going to call her back it was sent to us before they realized she is out ofnetwork. They will confirm with her all appointments here are canceled and they sent new referrals to in network providers. [facility] Telephone encounter Note* Telephone Encounter - Alyssa Najera - 07/05/2023 9:[address] iDez's office is going to call her back it was sent to us before they realized she is out ofnetwork. They will confirm with her all appointments here are canceled and they sent new referrals to in network providers. [facility]02-[facility] Miscellaneous Notes* Telephone Encounter - Alyssa Najera - 07/05/2023 9:36 AM EST CANCELED CONSULT WITH DR. WEINSTEIN INSURANCE IS OUT OF NETWORK documented in this encounterBluffton Hospital02-[facility]24 Telephone encounter Note* Telephone Encounter - Alyssa Najera - 07/05/2023 9:36 AM EST CANCELED CONSULT WITH DR. WEINSTEIN INSURANCE IS OUT OF NETWORK [facility]02-14-[facility] History of Present illness Narrative* Chasity Diez, DO - 07/04/2023 2:15 PM EST Images from the original note were not included. [facility] [id number] Progress NOTE Parvez Riggins 67 y.o. CHIEF COMPLAINT Chief Complaint Patient presents with Post-op Post op colonoscopy performed 06/26/23 at [facility] Parvez Riggins is a 67-year-old female that presents post colonoscopy with snare of large rectal cancer to make a diagnosis which was made with findings as below. She has not had her MRI as I had scheduled and we will check on that today to get that scheduled and I want to get a CT scan of her abdomen and pelvis for staging purposes and refer her to Colorectalsurgery her insurance would not cover going to [facility] therefore we gave her the option of going to [place] or the [facility] and she is chosen to go to Dr. Melissa Estevez at the [facility] and she wants to pursue going to the [facility] in [place] for Radiation and Medical Oncology. I told her I am not sure if she will have radiation and chemo 1st which is the usual 1st mode of therapy for rectal cancer. She denies having any further bleeding but is p assing a lot of mucus. The tumor is palpable at the tip of my finger and I am not sure if she will need a low anterior resection with reanastomosis or an abdominal perineal resection with permanent colostomy. [facility] [address] [place] [address] Surgical Pathology Consultation Patient Name:PARVEZ RIGGINS:1955 (Age: 67)Gender:FTaken:4Reported:4Physician(s):Chasity Diez D.O. ([phone])Copy To: Rec. #:[id number]: #[id number] Final Pathologic Diagnosis 1. Rectal mass: Fragments of moderately differentiated infiltrating adenocarcinoma, with associated necrosis. 2. Anal verge: Partially ulcerated and inflamed ano-rectal mucosa with hyperplastic and reactive changes and associated granulation tissue. Negative for dysplasia or malignancy. Comment Part 1- Dr. Jha concurs with diagnosis of malignancy. Report Electronically Signed Out 07/02/2023Kayleen Robledo MD MEDICATION Current Outpatient Medications: amLODIPine (NORVASC) 10 mg tablet, Take 1 tablet (10 mg total) by mouth respiratory nightly., Disp:90 tablet, Rfl: 1 aspirin 81 mg, Take 1 tablet (81 mg total) by mouth every other day., Disp: , Rfl: busPIRone (BUSPAR) 10 mg tablet, take 1 tablet by mouth twice a day if needed, Disp: , Rfl: ferrous sulfate (FeroSuL) 325 (65 FE) mg tablet, Take 1 tablet (325 mg total) by mouth every other day., Disp: 45 tablet, Rfl: 0 irbesartan (AVAPRO) 300 mg tablet, Take 1 tablet (300 mg total) by mouth nightly., Disp: , Rfl: LANTUS SOLOSTAR U-100 INSULIN 100 unit/mL (3 mL) insulin pen, inject 70 units subcutaneously every evening, Disp: 36 mL, Rfl: 1 meclizine (ANTIVERT) 25 mg tablet, Take 1 tablet (25 mg total) by mouth as needed for dizziness., Disp: , Rfl: 0 nystatin (MYCOSTATIN) ointment, Apply 1 Application topically in the morning and 1 Application before bedtime., Disp: 30 g, Rfl: 0 pen needle, diabetic 32 gauge x 5/32 needle, 1 Pen Needle by miscellaneous route in the morning and 1 Pen Needle before bedtime., Disp: 200 each, Rfl: 1 potassium chloride (KLOR-CON M 20) 20 MEQ CR tablet, take 1 tablet by mouth every morning, Disp: 30tablet, Rfl: 2 potassium gluconate 595 mg (99 mg) tablet, Take 1 tablet (595 mg total) by mouth in the morning., Disp: , Rfl: semaglutide (OZEMPIC) 1 mg/dose (4 mg/3 mL) pen injector, Inject 1 mg under the skin once a week., Disp: 3 mL, Rfl: 2 ALLERGY Allergies Allergen Reactions Codeine Nausea Tramadol Nausea MEDICAL HISTORY Past Medical History: Diagnosis Date Anxiety Arthritis Breast disorder Depression Diabetes mellitus type 2, controlled ([facility]) Dizziness GERD (gastroesophageal reflux disease) 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 Hypertension since 2013 Injury of back 2007 had back surgery for that in 2010 Low back pain Panic disorder PONV (postoperative nausea and vomiting) Sinus congestion Sinusitis, chronic Sleep apnea better since losing 65 pounds No Cpap since weight loss Visual impairment glasses Vulva cancer ([facility]) SURGICAL HISTORY Past Surgical History: Procedure Laterality Date BACK SURGERY 2010 lumbar discectomy and fusion CHOLECYSTECTOMY COLONOSCOPY DIAGNOSTIC / SCREENING N/A 06/26/2023 Performed by Chasity Diez DO at [facility] COLONOSCOPY DIAGNOSTIC / SCREENING N/A 05/25/2023 Performed by Keaton Hu DO at [facility] DISSECTION LYMPH NODE INGUINAL FEMORAL N/A 11/01/2018 Performed by Nathaniel Garcias MD at [facility] EGD N/A 05/30/2022 Performed by Chasity Diez DO at [facility] KNEE ARTHROPLASTY KNEE ARTHROSCOPY Left early REPLACMENT TOTAL JOINT KNEE PSI Left 11/13/2016 Performed by Keaton Gibson DO at [facility] REVISON EPISIOTOMY 1981 RIGHT HEMIVULVECTOMY/ BILATERAL INGUINAL SENTINEL LYMPH NODE DISSECTION/ 6X10 CM RIGHT ROTATIONAL SKIN GRAFT N/A 11/01/2018 Performed by Nathaniel Garcias MD at [facility] SINUS SURGERY 2014 SINUS SURGERY TUBAL LIGATION 1981 SOCIAL HISTORY Social History Socioeconomic History Marital status: Legally Spouse name: Not on file Number of children: Not on file Years of education: Not on file Highest education level: Not on file Occupational History Not on file Tobacco Use Smoking status: Former Types: Cigarettes Quit date: 1975 Years since quittin.1 Smokeless tobacco: Never Tobacco comments: smoked for 1 year when was age 18 Vaping Use Vaping Use: Never used Substance and Sexual Activity Alcohol use: Yes Alcohol/week: 1.0 standard drink of alcohol Types: 1 Glasses of wine per week Comment: socially Drug use: Not Currently Sexual activity: Not Currently Partners: Male Other Topics Concern Not on file Social History Narrative Not on file Social Determinants of Health Financial Resource Strain: High Risk (02/27/2023) Overall Financial Resource Strain (CARDIA) Difficulty of Paying Living Expenses: Hard Food Insecurity: Food Insecurity Present (07/04/2023) Hunger Screening Food Insecurity - Worry: Often True Food Insecurity - Inability: Often True Transportation Needs: No Transportation Needs (02/27/2023) PRAPARE - Transportation Lack of Transportation (Medical): No Lack of Transportation (Non-Medical): No Physical Activity: Inactive (02/27/2023) Exercise Vital Sign Days of Exercise per Week: 0 days Minutes of Exercise per Session: 0 min Stress: Stress Concern Present (02/27/2023) [place] [employer] - Occupational Stress Questionnaire Feeling of Stress : To some extent Social Connections: Moderately Isolated (02/27/2023) Social Connection and Isolation Panel [NHANES] Frequency of Communication with Friends and Family: More than three times a week Frequency of Social Gatherings with Friends and Family: Three times a week Attends Zoroastrian Services: More than 4 times per year Active Member of Clubs or Organizations: No Attends Club or Organization Meetings: Never Marital Status: Interpersonal Safety: Not At Risk (02/27/2023) Humiliation, Afraid, Rape, and Kick questionnaire Fear of Current or Ex-Partner: No Emotionally Abused: No Physically Abused: No Sexually Abused: No Housing Instability: Low Risk (02/27/2023) Housing Instability Housing Instability: No FAMILY HISTORY Family History Problem Relation Age of Onset Diabetes Mother Stroke Mother Hypertension Father Diabetes Brother Heart attack Paternal Uncle Uterine cancer Maternal Grandmother Diabetes Maternal Grandfather Heart attack Maternal Grandfather Dementia Paternal Grandmother Heart attack Paternal Grandfather Anesthesia problems Neg Hx REVIEW OF SYSTEMS: Constitutional: Denies fevers, denies recent illnesses. ROS negative except as above. PHYSICAL EXAM Constitutional: She is oriented to person, place, and time. Vital signs are normal. She appears well-developed and well-nourished. Cardiovascular: Normal rate and regular rhythm. Pulmonary/Chest: Effort normal and breath sounds normal. Abdominal: Soft. Normal appearance. She exhibits no distension and no mass. There is no hepatosplenomegaly or splenomegaly. There is negative Deal's sign. No hernia. Neurological: She is alert and oriented to person, place, and time. Skin: Skin is warm, dry and intact. Psychiatric: She has a normal mood and affect. Her speech is normal and behavior is normal. Cognition and memory are normal. IMPRESSION 1. Adenocarcinoma of the rectum 5 to 7 cm from the anal verge 2. History of diabetes mellitus type 2 on insulin ASSESSMENT & PLAN Refer to Medical and Radiation Oncology for opinions CT scan of abdomen and pelvis with contrast for staging MRI of pelvis; reminded patient to obtain MRI of the pelvis as previously scheduled Referral to Colorectal surgery in [place] to Dr. Melissa Gutierres at [facility] Evaluation included: Preparing to see the patient (e.g., review of tests) Obtaining and/or reviewing separately obtained history Performing a medically appropriate examination and/or evaluation Counseling and educating the patient/family/caregiver Referring and communicating with other health anesthesiologist and critical care Adenocarcinoma of rectum ([facility]) [C20] Chasity Diez DO This note was created with the assistance of a speech recognition program. While intending to generate a timely document that accurately reflects the content of the visit, no guarantee can be provided that every grammatical or spelling mistake has been or will be identified or corrected. Thank you for your understanding. documented in this encounterBluff[facility]02-[facility]24 Miscellaneous Notes* Telephone Encounter - Alyssa Najera - 07/03/2023 2:05 PM EST PATIENT WILL NOT BE COMING IN FOR APPOINTMENT WITH [facility] TODAY. I SPOKE WITH HER YESTERDAY TO LET HER KNOW HER APPOINTMENT WITH DR. SPARKS THE PROVIDER IS OUT OF NETWORK AND SHE STATED IT IS TOO MANYAPPOINTMENTS AND THAT SHE WOULD NOT BE COMING IN TODAY. documented in this encounterBluffton Hospital02-13-2024 Telephone encounter Note* Telephone Encounter - Alyssa Najera - 07/03/2023 2:05 PM EST PATIENT WILL NOT BE COMING IN FOR APPOINTMENT WITH [facility] TODAY. I SPOKE WITH HER YESTERDAY TO LET HER KNOW HER APPOINTMENT WITH DR. SPARKS THE PROVIDER IS OUT OF NETWORK AND SHE STATED IT IS TOO MANYAPPOINTMENTS AND THAT SHE WOULD NOT BE COMING IN TODAY. [facility]02-[facility] Miscellaneous Notes* Telephone Encounter - Alyssa Najera - 07/03/2023 1:18 PM EST PATIENT WOULD LIKE TO CANCEL CONSULT WITH RAD ONC DOCTOR IS NOT IN NETWORK documented in this encounterBluffton Hospital02-13-2024 Telephone encounter Note* Telephone Encounter - Alyssa Najera - 07/03/2023 1:18 PM EST PATIENT WOULD LIKE TO CANCEL CONSULT WITH RAD ONC DOCTOR IS NOT IN NETWORK [facility]02-12-2024 Miscellaneous Notes* Telephone Encounter - Jackeline Gould CMA - 07/02/2023 3:32 PM EST ----- Message from Chasity Diez DO sent at 07/02/2023 2:55 PM EST ----- Please call this lady and she needs appt. With colo rectal KOFI. If I need to talk to them let me know. I will put in referral. ThanksDr. Larsen * Telephone Encounter - Jackeline Gould CMA - 07/02/2023 3:32 PM EST Informed patient of Dr. Diez's recommendations. Will call Colorectal Surgery to see how soon patient can get an appointment. Patient stated the [facility] is in network but the doctor is not. * Telephone Encounter - Jackeline Gould CMA - 07/02/2023 3:[address] Azevedo and Dr. De Leon's office to get patient an appointment KOFI. Was notified that Dr. De Leon had an appointment on . Was able to schedule patient for that appointment time. * Telephone Encounter - Jakceline Gould CMA - 07/02/2023 3:32 PM EST Received a call back from Dr. De Leon's office stating they are out of network with patient's insurance. Will contact patient to have her call her insurance to find a colorectal surgeon in network with her insurance so we can put in a referral. * Telephone Encounter - Jackeline Gould CMA - 07/02/2023 3:32 PM EST Informed patient that colorectal surgery does not take patient's insurance. Informed patient to contact her insurance to find a colorectal surgeon in network. Patient stated she would call and let ainsley KIRBY. Will inform Dr. Diez. documented in this encounterBluffton Hospital02-12-2024 Telephone encounter Note* Telephone Encounter - Jackeline Gould CMA - 07/02/2023 3:32 PM EST ----- Message from Chasity Diez DO sent at 07/02/2023 2:55 PM EST ----- Please call this lady and she needs appt. With colo rectal KOFI. If I need to talk to them let me know. I will put in referral. Thanks, Dr. Larsen [facility]02-[facility] Telephone encounter Note* Telephone Encounter - Jackeline Gould CMA - 07/02/2023 3:32 PM EST Informed patient of Dr. Diez's recommendations. Will call Colorectal Surgery to see how soon patient can get an appointment. Patient stated the [facility] is in network but the doctor is not. [facility]02-[facility] Telephone encounter Note* Telephone Encounter - Jackeline Gould CMA - 07/02/2023 3:[address] Azevedo and Dr. De Leon's office to get patient an appointment KOFI. Was notified that Dr. De Leon had an appointment on . Was able to schedule patient for that appointment time. [facility] Telephone encounter Note* Telephone Encounter - Jackeline Gould CMA - 07/02/2023 3:32 PM EST Received a call back from Dr. De Leon's office stating they are out of network with patient's insurance. Will contact patient to have her call her insurance to find a colorectal surgeon in network with her insurance so we can put in a referral. [facility] Telephone encounter Note* Telephone Encounter - Jackeline Gould CMA - 07/02/2023 3:32 PM EST Informed patient that colorectal surgery does not take patient's insurance. Informed patient to contact her insurance to find a colorectal surgeon in network. Patient stated she would call and let ainsley KIRBY. Will inform Dr. Diez. [facility]02-12-[facility] Miscellaneous Notes* Telephone Encounter - Alyssa Najera - 07/02/2023 10:15 AM EST LEFT A VM LETTING THE PATIENT KNOW THAT HER INSURANCE IS OUT OF NETWORK FOR RAD ONC DOCTOR documented in this encounterBluffton Hospital02-12-2024 Telephone encounter Note* Telephone Encounter - Alyssa Najera - 07/02/2023 10:15 AM EST LEFT A VM LETTING THE PATIENT KNOW THAT HER INSURANCE IS OUT OF NETWORK FOR RAD ONC DOCTOR [facility]02-[facility] Miscellaneous Notes* Telephone Encounter - Gay Dowd - 06/27/2023 11:37 AM EST Called [facility] as Dr. Diez would like her to have a 1 week post op appointment per his operative report dated 06/26/2023. * Telephone Encounter - Gay Dowd - 06/27/2023 11:37 AM EST Called [facility] to try to schedule a 1 week post op colonoscopy appointment, I left a message on her voicemail to call the office back * Telephone Encounter - Gay Dowd - 06/27/2023 11:37 AM EST Called [facility] to try to schedule a 1 week post op colonoscopy appointment, I left a message on her voicemail to call the office back to make an appointment. documented in this encounterBluffton Hospital02-07-2024 Telephone encounter Note* Telephone Encounter - Gay Dowd - 06/27/2023 11:37 AM EST Called [facility] as Dr. Diez would like her to have a 1 week post op appointment per his operative report dated 06/26/2023. [facility] Tele[facility] encounter Note* Telephone Encounter - Gay Dowd - 06/27/2023 11:37 AM EST Called [facility] to try to schedule a 1 week post op colonoscopy appointment, I left a message on her voicemail to call the office back [facility] Tele[facility] encounter Note* Telephone Encounter - Gay Dowd - 06/27/2023 11:37 AM EST Called [facility] to try to schedule a 1 week post op colonoscopy appointment, I left a message on her voicemail to call the office back to make an appointment. [facility] Miscellaneous Notes* Perioperative Nursing Note - Heather Espinosa RN - 06/25/2023 3:00 PM EST Preoperative Education Checklist- General Surgery date: 06/26/23 Surgery time: 1100 Arrival time: 0900 1. Bring a photo ID and your insurance card with you the day of surgery. You will check in at the main lobby of the [facility] [place]- registration desk is straight ahead as soon as you walk in. Tell them you are here for surgery. 2. If you have a Living Will/Durable Power of Machinist Set Up for Health Care that is not on file here, please bring a copy the day of surgery. 3. Please shower/bathe the night before surgery with the provided soap or wipes. Do not shower the morning of surgery- you will do use wipes when you arrive here at the hospital before getting into your surgical gown. Do not shave the area of your procedure for 2 days prior to your surgery. 4. NO powder, lotion, perfume/cologne, aftershave, make-up, deodorant, or hair products after you have bathed. 5. NO nail jordanian/acrylic on at least one finger. If you are having a hand, wrist or foot surgery then all nail jordanian and artificial/acrylic nails must be removed from that hand or foot. 6. Avoid ALL Aspirin and non-steroidal anti-inflammatory drugs and certain vitamins (Ibuprofen, Advil, Aleve, Excedrin, Meloxicam, Celebrex, fish/krill oil, etc.) for 7 days prior to surgery as instructed by your surgeon and/or your prescribing doctor. Tylenol IS ALLOWED. If you are on Ticlid, Xarelto, Eliquis, Pradaxa, Plavix or Coumadin, please check with your prescribing doctor for instructions for when to stop them. 7. If you use an inhaler, continue to use it routinely. 8. Nothing to eat or drink (not even water, gum, mints, or hard candy!) AFTER midnight prior to your surgery. 9. Take only medications that you are instructed to on the morning of surgery with a TINY SIP OF WATER. 10. Choose a responsible adult that will be able to drive you home when you are discharged from your hospital stay for your surgery and can stay with you in your home for 24 hours after your procedure. You must NOT drive any vehicle or operate any machinery for 24 hours after surgery. 11. When you dress for your appointment, please wear loose fitting clothing that is appropriate to accommodate your surgical area procedure. BRING WITH YOU ANY DEVICES YOU MAY NEED: TOOTIE hose, ice machine, sling/swath, brace or special shoe, oversized zip-up or button up shirt, CPAP machine if staying overnight. 12. Do NOT wear jewelry, watches, or any piercings or metal for surgery- leave these valuables and money at home. 13. Do NOT wear contact lenses for surgery- glasses are okay if needed. 14. The anesthesiologist will talk with you the day of surgery and will ask you to sign a Consent Form. 15. Refrain from smoking or any type of tobacco use for at least 8 hours and marijuana for 24 hoursprior to arrival for your surgery. 16. If a GREEN BLOOD band is given to you, please bring it with you for the day of surgery. 17. Notify your surgeon if you develop any illness before your surgery. 18. If you are staying overnight, please DO NOT BRING your home medications with you. 19. If you have any questions prior to surgery, please call the Preadmission Testing office at [phone], Mon.-Fri. 7 a.m.-3 p.m. Leave a voicemail if needed. Pre-Surgery Instructions: Medication Instructions amLODIPine (NORVASC) 10 mg tablet Stop taking 0 days prior to procedure aspirin 81 mg Stop taking 1 week prior to procedure busPIRone (BUSPAR) 10 mg tablet Stop taking 0 days prior to procedure FeroSuL 325 mg (65 mg iron) tablet Stop taking 0 days prior to procedure irbesartan (AVAPRO) 300 mg tablet Stop taking 0 days prior to procedure LANTUS SOLOSTAR U-100 INSULIN 100 unit/mL (3 mL) insulin pen Stop taking 0 days prior to procedure meclizine (ANTIVERT) 25 mg tablet Stop taking 0 days prior to procedure nystatin (MYCOSTATIN) ointment Stop taking 0 days prior to procedure pen needle, diabetic 32 gauge x 5 needle Stop taking 0 days prior to procedure potassium gluconate 595 mg (99 mg) tablet Stop taking 0 days prior to procedure semaglutide (OZEMPIC) 1 mg/dose (4 mg/3 mL) pen injector Stop taking 1 week prior to procedure documented in this encounterBluffton Hospital02-05-2024 Nurse Note* Perioperative Nursing Note - Heather Espinosa RN - 06/25/2023 3:00 PM EST Preoperative Education Checklist- General Surgery date: 06/26/23 Surgery time: 1100 Arrival time: 0900 1. Bring a photo ID and your insurance card with you the day of surgery. You will check in at the main lobby of the [facility]- registration desk is straight ahead as soon as you walk in. Tell them you are here for surgery. 2. If you have a Living Will/Durable Power of Machinist Set Up for Health Care that is not on file here, please bring a copy the day of surgery. 3. Please shower/bathe the night before surgery with the provided soap or wipes. Do not shower the morning of surgery- you will do use wipes when you arrive here at the hospital before getting into your surgical gown. Do not shave the area of your procedure for 2 days prior to your surgery. 4. NO powder, lotion, perfume/cologne, aftershave, make-up, deodorant, or hair products after you have bathed. 5. NO nail jordanian/acrylic on at least one finger. If you are having a hand, wrist or foot surgery then all nail jordanian and artificial/acrylic nails must be removed from that hand or foot. 6. Avoid ALL Aspirin and non-steroidal anti-inflammatory drugs and certain vitamins (Ibuprofen, Advil, Aleve, Excedrin, Meloxicam, Celebrex, fish/krill oil, etc.) for 7 days prior to surgery as instructed by your surgeon and/or your prescribing doctor. Tylenol IS ALLOWED. If you are on Ticlid, Xarelto, Eliquis, Pradaxa, Plavix or Coumadin, please check with your prescribing doctor for instructions for when to stop them. 7. If you use an inhaler, continue to use it routinely. 8. Nothing to eat or drink (not even water, gum, mints, or hard candy!) AFTER midnight prior to your surgery. 9. Take only medications that you are instructed to on the morning of surgery with a TINY SIP OF WATER. 10. Choose a responsible adult that will be able to drive you home when you are discharged from your hospital stay for your surgery and can stay with you in your home for 24 hours after your procedure. You must NOT drive any vehicle or operate any machinery for 24 hours after surgery. 11. When you dress for your appointment, please wear loose fitting clothing that is appropriate to accommodate your surgical area procedure. BRING WITH YOU ANY DEVICES YOU MAY NEED: TOOTIE hose, ice machine, sling/swath, brace or special shoe, oversized zip-up or button up shirt, CPAP machine if staying overnight. 12. Do NOT wear jewelry, watches, or any piercings or metal for surgery- leave these valuables and money at home. 13. Do NOT wear contact lenses for surgery- glasses are okay if needed. 14. The anesthesiologist will talk with you the day of surgery and will ask you to sign a Consent Form. 15. Refrain from smoking or any type of tobacco use for at least 8 hours and marijuana for 24 hoursprior to arrival for your surgery. 16. If a GREEN BLOOD band is given to you, please bring it with you for the day of surgery. 17. Notify your surgeon if you develop any illness before your surgery. 18. If you are staying overnight, please DO NOT BRING your home medications with you. 19. If you have any questions prior to surgery, please call the Preadmission Testing office at [phone], Mon.-Fri. 7 a.m.-3 p.m. Leave a voicemail if needed. Pre-Surgery Instructions: Medication Instructions amLODIPine (NORVASC) 10 mg tablet Stop taking 0 days prior to procedure aspirin 81 mg Stop taking 1 week prior to procedure busPIRone (BUSPAR) 10 mg tablet Stop taking 0 days prior to procedure FeroSuL 325 mg (65 mg iron) tablet Stop taking 0 days prior to procedure irbesartan (AVAPRO) 300 mg tablet Stop taking 0 days prior to procedure LANTUS SOLOSTAR U-100 INSULIN 100 unit/mL (3 mL) insulin pen Stop taking 0 days prior to procedure meclizine (ANTIVERT) 25 mg tablet Stop taking 0 days prior to procedure nystatin (MYCOSTATIN) ointment Stop taking 0 days prior to procedure pen needle, diabetic 32 gauge x 5/32 needle Stop taking 0 days prior to procedure potassium gluconate 595 mg (99 mg) tablet Stop taking 0 days prior to procedure semaglutide (OZEMPIC) 1 mg/dose (4 mg/3 mL) pen injector Stop taking 1 week prior to procedure [facility] History of Present illness Narrative* Chasity Diez, DO - 06/20/2023 2:15 PM EST Images from the original note were not included. [facility] [address] [place] [phone] CONSULT NOTE Parvez Riggins 67 y.o. CHIEF COMPLAINT Chief Complaint Patient presents with ADENOCARCINOMA OF RECTUM ADENOCARCINOMA OF RECTUM, COLONOSCOPY WITH DR. HU 05/25/23 Parvez Riggins presents for consultation in regards to an abnormal rectal mass being found on colonoscopy by her PCP. It did not show cancer but showed high-grade dysplasia. Endoscopy showed an anal mass which was biopsied and showed anal mucosa with at least high-grade dysplasia. Her bowel prep was unsatisfactory. It was recommended that she have a repeat colonoscopy but did not do so because she didnot have transportation. She reports continued anal bleeding and anal discharge which she believes is mucus. She reports weight loss but has also been taking Ozempic for the past 3 months. 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 She also has a history of diabetes and hypertension. She takes care of her 93-year-old father at home. [facility] [address] [place] [address] Surgical Pathology Consultation Patient Name:PARVEZ RIGGINS:1955 (Age: 67)Gender:FTaken:4Reported:4Physician(s):Keaton Hu MD ([phone])Copy To: Rec. #:[id number]: #[id number] Final Pathologic Diagnosis 1. Colon mass biopsy 10 cm: Adenomatous mucosa with AT LEAST high grade dysplasia An invasive neoplasm cannot be excluded on the fragmented superficial biopsy sample 2. Rectal verge biopsy: Squamo-colonic transitional mucosa with reactive changes and nearby ulcer bed sampling with granulation tissue formation. Report Electronically Signed Out nsk/05/30/2023Sylvia Biggs MD MEDICATION Current Outpatient Medications: amLODIPine (NORVASC) 10 mg tablet, Take 1 tablet (10 mg total) by mouth respiratory nightly., Disp:90 tablet, Rfl: 1 aspirin 81 mg, Take 1 tablet (81 mg total) by mouth every other day., Disp: , Rfl: busPIRone (BUSPAR) 10 mg tablet, take 1 tablet by mouth twice a day if needed, Disp: , Rfl: FeroSuL 325 mg (65 mg iron) tablet, Take 1 tablet (325 mg total) by mouth in the morning., Disp: , Rfl: irbesartan (AVAPRO) 300 mg tablet, Take 1 tablet (300 mg total) by mouth nightly., Disp: , Rfl: LANTUS SOLOSTAR U-100 INSULIN 100 unit/mL (3 mL) insulin pen, inject 70 units subcutaneously every evening, Disp: 36 mL, Rfl: 1 meclizine (ANTIVERT) 25 mg tablet, Take 1 tablet (25 mg total) by mouth as needed for dizziness., Disp: , Rfl: 0 nystatin (MYCOSTATIN) ointment, Apply 1 Application topically in the morning and 1 Application before bedtime., Disp: 30 g, Rfl: 0 pen needle, diabetic 32 gauge x 5/32 needle, 1 Pen Needle by miscellaneous route in the morning and 1 Pen Needle before bedtime., Disp: 200 each, Rfl: 1 potassium gluconate 595 mg (99 mg) tablet, Take 1 tablet (595 mg total) by mouth in the morning., Disp: , Rfl: semaglutide (OZEMPIC) 1 mg/dose (4 mg/3 mL) pen injector, Inject 1 mg under the skin once a week., Disp: 3 mL, Rfl: 2 peg 3350-sod sulf,[id number] 178.7-7.3-0.5 gram recon soln, Take 1 kit by mouth in the morning for 1 dose. Please see instructional sheet given by Physicians office., Disp: 1 each, Rfl: 0 ALLERGY Allergies Allergen Reactions Codeine Nausea Tramadol Nausea MEDICAL HISTORY Past Medical History: Diagnosis Date Anxiety Arthritis Breast disorder Depression Diabetes mellitus type 2, controlled ([facility] Dizziness GERD (gastroesophageal reflux disease) 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 Hypertension since 2013 Injury of back 2007 had back surgery for that in 2010 Low back pain Panic disorder PONV (postoperative nausea and vomiting) Sinus congestion Sinusitis, chronic Sleep apnea better since losing 65 pounds No Cpap since weight loss Visual impairment glasses Vulva cancer ([facility] SURGICAL HISTORY Past Surgical History: Procedure Laterality Date BACK SURGERY 2010 lumbar discectomy and fusion CHOLECYSTECTOMY COLONOSCOPY DIAGNOSTIC / SCREENING N/A 05/25/2023 Performed by Keaton Hu DO at [facility] DISSECTION LYMPH NODE INGUINAL FEMORAL N/A 11/01/2018 Performed by Nathaniel Garcias MD at [facility] EGD N/A 05/30/2022 Performed by Chasity Diez DO at [facility] KNEE ARTHROPLASTY KNEE ARTHROSCOPY Left early REPLACMENT TOTAL JOINT KNEE PSI Left 11/13/2016 Performed by Keaton Gibson DO at [facility] REVISON EPISIOTOMY 1981 RIGHT HEMIVULVECTOMY/ BILATERAL INGUINAL SENTINEL LYMPH NODE DISSECTION/ 6X10 CM RIGHT ROTATIONAL SKIN GRAFT N/A 11/01/2018 Performed by Nathaniel Garcias MD at [facility] SINUS SURGERY 2014 SINUS SURGERY TUBAL LIGATION 1981 SOCIAL HISTORY Social History Socioeconomic History Marital status: Legally Spouse name: Not on file Number of children: Not on file Years of education: Not on file Highest education level: Not on file Occupational History Not on file Tobacco Use Smoking status: Former Types: Cigarettes Quit date: 1975 Years since quittin.1 Smokeless tobacco: Never Tobacco comments: smoked for 1 year when was age 18 Vaping Use Vaping Use: Never used Substance and Sexual Activity Alcohol use: Yes Alcohol/week: 1.0 standard drink of alcohol Types: 1 Glasses of wine per week Comment: socially Drug use: Not Currently Sexual activity: Not Currently Partners: Male Other Topics Concern Not on file Social History Narrative Not on file Social Determinants of Health Financial Resource Strain: High Risk (02/27/2023) Overall Financial Resource Strain (CARDIA) Difficulty of Paying Living Expenses: Hard Food Insecurity: Food Insecurity Present (06/12/2023) Hunger Screening Food Insecurity - Worry: Sometimes True Food Insecurity - Inability: Sometimes True Transportation Needs: No Transportation Needs (02/27/2023) PRAPARE - Transportation Lack of Transportation (Medical): No Lack of Transportation (Non-Medical): No Physical Activity: Inactive (02/27/2023) Exercise Vital Sign Days of Exercise per Week: 0 days Minutes of Exercise per Session: 0 min Stress: Stress Concern Present (02/27/2023) [place] [facility] [employer] - Occupational Stress Questionnaire Feeling of Stress : To some extent Social Connections: Moderately Isolated (02/27/2023) Social Connection and Isolation Panel [NHANES] Frequency of Communication with Friends and Family: More than three times a week Frequency of Social Gatherings with Friends and Family: Three times a week Attends Zoroastrian Services: More than 4 times per year Active Member of Clubs or Organizations: No Attends Club or Organization Meetings: Never Marital Status: Interpersonal Safety: Not At Risk (02/27/2023) Humiliation, Afraid, Rape, and Kick questionnaire Fear of Current or Ex-Partner: No Emotionally Abused: No Physically Abused: No Sexually Abused: No Housing Instability: Low Risk (02/27/2023) Housing Instability Housing Instability: No FAMILY HISTORY Family History Problem Relation Age of Onset Diabetes Mother Stroke Mother Hypertension Father Diabetes Brother Heart attack Paternal Uncle Uterine cancer Maternal Grandmother Diabetes Maternal Grandfather Heart attack Maternal Grandfather Dementia Paternal Grandmother Heart attack Paternal Grandfather Anesthesia problems Neg Hx REVIEW OF SYSTEMS: Constitutional: Denies fevers, denies recent illnesses. Gastrointestinal: See HPI PHYSICAL EXAM Constitutional: She is oriented to person, place, and time. Heart: Regular rate rhythm without murmur Lungs: Clear to auscultation Abdomen: Soft obese nontender with no palpable masses or hernias noted. Rectal: Mass palpated on posterior rectum. Small anterior rectal mass palpated but not what I have seen on endoscopy imaging. I believe that is higher than my finger can reach which is at 10 cm according to the endoscopist. Neuro: Alert and oriented to person place and time. IMPRESSION Rectal mass suspicious of rectal cancer with biopsy showing adenomatous mucosa with at least high-grade dysplasia History of hypertension History of diabetes History of vulvar cancer secondary to HPV Obesity with BMI of 31 ASSESSMENT & PLAN I recommended to the patient that she have a repeat colonoscopy with biopsy of the mass completed as soon as possible. I emphasized the necessity for good bowel preparation. The patient is aware thatthe mass is likely a cancer but this depends on the repeat biopsy results. She is also aware that if the mass is cancer, she will likely need radiation and chemotherapy, which will be followed by a surgery to remove the remaining tumor. I emphasized that waiting to complete this colonoscopy could lead to small-bowel obstruction and emergency colectomy at any time if she does not get this taking care of. I explained the risks and benefits to colonoscopy to the patient which include risk of perforation and bleeding. She understands and is agreeable to the procedure. Referrals made for medical and radiation oncology as well as MRI of the pelvis. She already has an elevated CEA as well. She also needs a CT scan of the abdomen and pelvis rule out metastatic disease. Evaluation included: Preparing to see the patient (e.g., review of tests) Obtaining and/or reviewing separately obtained history Performing a medically appropriate examination and/or evaluation Counseling and educating the patient/family/caregiver Referring and communicating with other health anesthesiologist and critical care Rectal mass [K62.89] Chasity Diez DO This note was created with the assistance of a speech recognition program. While intending to generate a timely document that accurately reflects the content of the visit, no guarantee can be provided that every grammatical or spelling mistake has been or will be identified or corrected. Thank you for your understanding. documented in this [facility]01-30-2024 Miscellaneous Notes* Telephone Encounter - Latasha Perez RN - 06/19/2023 9:18 AM EST Left to schedule LABOR EXPEDITER appt with business intelligence architect onc, call back # provided. documented in this [facility]01-30-2024 Telephone encounter Note* Telephone Encounter - aLtasha Perez RN - 06/19/2023 9:18 AM EST Left VM to schedule LABOR EXPEDITER appt with business intelligence architect onc, call back # provided. [facility]01-29-2024 History of Present illness Narrative* Grace Noble MD - 06/18/2023 1:00 PM EST Parvez Riggins is a 67 y.o.female. No LMP recorded. Patient is postmenopausal.. She presents with atrophic vaginitis. Pt reports vaginal itching that happens frequently. DENIES POSTMENOPAUSAL BLEEDING HAS BEEN RECENTLY DIAGNOSED WITH RECTOVAGINAL CANCER AND WILL BE SCHEDULED WITH DR. MONZON FOR FUTURE SURGERY HAS A HISTORY OF VULVAR CARCINOMA STAGE I B SQUAMOUS STATUS POST RUDDY VULVECTOMY WITH SKIN GRAFT FROM INNER THIGH ON THE RIGHT SHE REPORTS RECENT SEVERE IRRITATION IN THIS AREA WITH EXTREME ITCHING AND IRRITATION. SHE WAS PREVIOUSLY TREATED BY NATHANIEL GARCIAS IN 2019 FOR THE ABOVE INTERVENTION OB History No obstetric history on file. MEDICAL HX Past Medical History: Diagnosis Date Anxiety Arthritis Breast disorder Depression Diabetes mellitus type 2, controlled ([facility]) Dizziness GERD (gastroesophageal reflux disease) 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 Hypertension since 2013 Injury of back 2007 had back surgery for that in 2010 Low back pain Panic disorder PONV (postoperative nausea and vomiting) Sinus congestion Sinusitis, chronic Sleep apnea better since losing 65 pounds No Cpap since weight loss Visual impairment glasses Vulva cancer ([facility]) SURGICAL HX Past Surgical History: Procedure Laterality Date BACK SURGERY 2010 lumbar discectomy and fusion CHOLECYSTECTOMY COLONOSCOPY DIAGNOSTIC / SCREENING N/A 05/25/2023 Performed by eKaton Hu DO at [facility] DISSECTION LYMPH NODE INGUINAL FEMORAL N/A 11/01/2018 Performed by Nathaniel Garcias MD at [facility] EGD N/A 05/30/2022 Performed by Chasity Diez DO at [facility] KNEE ARTHROPLASTY KNEE ARTHROSCOPY Left early REPLACMENT TOTAL JOINT KNEE PSI Left 11/13/2016 Performed by Keaton Gibson DO at [facility] REVISON EPISIOTOMY 1981 RIGHT HEMIVULVECTOMY/ BILATERAL INGUINAL SENTINEL LYMPH NODE DISSECTION/ 6X10 CM RIGHT ROTATIONAL SKIN GRAFT N/A 11/01/2018 Performed by Nathaniel Garcias MD at [facility] SINUS SURGERY 2014 SINUS SURGERY TUBAL LIGATION 1981 FAMILY HX Family History Problem Relation Age of Onset Diabetes Mother Stroke Mother Hypertension Father Anesthesia problems Neg Hx MEDS Current Outpatient Medications Medication Sig Dispense Refill acetaminophen (TYLENOL) 500 mg tablet Take 1 tablet (500 mg total) by mouth every 6 (six) hours as needed for pain, headaches or fever. 30 tablet 0 amLODIPine (NORVASC) 10 mg tablet Take 1 tablet (10 mg total) by mouth respiratory nightly. 90 tablet 1 aspirin 81 mg Take 1 tablet (81 mg total) by mouth in the morning. atorvastatin (LIPITOR) 40 mg tablet Take 1 tablet (40 mg total) by mouth in the morning. 90 tablet 1 busPIRone (BUSPAR) 10 mg tablet take 1 tablet by mouth twice a day if needed FeroSuL 325 mg (65 mg iron) tablet Take 1 tablet (325 mg total) by mouth in the morning. irbesartan (AVAPRO) 300 mg tablet Take 1 tablet (300 mg total) by mouth nightly. LANTUS SOLOSTAR U-100 INSULIN 100 unit/mL (3 mL) insulin pen inject 70 units subcutaneously every evening 36 mL 1 meclizine (ANTIVERT) 25 mg tablet Take 1 tablet (25 mg total) by mouth as needed for dizziness. 0 nystatin (MYCOSTATIN) ointment Apply 1 Application topically in the morning and 1 Application before bedtime. 30 g 0 omeprazole (PriLOSEC) 40 mg capsule Take 1 capsule (40 mg total) by mouth in the morning. 30 capsule 1 pen needle, diabetic 32 gauge x 5/32 needle 1 Pen Needle by miscellaneous route in the morning and1 Pen Needle before bedtime. 200 each 1 potassium chloride (KLOR-CON M 20) 20 MEQ CR tablet Take 1 tablet (20 mEq total) by mouth in the morning. 15 tablet 1 potassium gluconate 595 mg (99 mg) tablet Take 1 tablet (595 mg total) by mouth in the morning. semaglutide (OZEMPIC) 1 mg/dose (4 mg/3 mL) pen injector Inject 1 mg under the skin once a week. 3 mL 2 No current facility-administered medications for this visit. ALLERGIES Allergies Allergen Reactions Codeine Nausea Tramadol Nausea Review of Systems Review of Systems Objective There were no vitals taken for this visit. Physical Exam BP 134/86 Ht 170.2 cm (5' 7 ) Wt 88.5 kg (195 lb 3.2 oz) BMI 30.57 kg/m Physical Exam GEN AAOX3, NAD HEENT UNREMARKABLE HEART RRR LUNGS CTAB BREASTS NO MASSES, SKIN CHANGES OR LAD, NO NIPPLE DC ABD BENIGN, OBESE, NTND PELVIS: EG APPROP FOR AGE, + ULCERATIVE LESION ON RIGHT IN MIDDLE OF [place]/ CHRONICALLY IRRITATED AREA OF RT VULVA/GROIN VAGINA APPROP FOR AGE, NO LESIONS BIMANUAL NO MASSES OR TENDERNESS RECTAL DEFERRED EXTREM NO CCE, NO CALF TENDERNESS Assessment/Plan: Parvez was seen today for vaginitis. Diagnoses and all orders for this visit: Atrophic vaginitis - [facility] - [facility] - [place], [place] - Consult HO STAGE 1B VULVAR CA 2019 SP HEMIVULVECTOMY AND SKIN GRAPH ADENOCA COLORECTAL--FOLLOWED BY DR DIEZ DIABETES CHRONIC VULVAR IRRITATION W ULCERATION ON RIGHT RTO FOR VULVAR COLPOSCOPY AND BX PAP AND WWE DONE TODAY MD KARI BURNHAM, LITHOGRAPH PRESS FEEDER documented in this encounterChillicothe HospitalTaumatropo Animation [facility] [id number] History of Present illness Narrative* Keaton Hu, DO - 06/12/2023 12:30 PM EST IM PROGRESS NOTE Patient - Parvez Riggins Age - 67 [facility] 1955 [id number] ASSESSMENT & PLAN 1. Type 2 diabetes mellitus with microalbuminuria, with long-term current use of insulin ([facility]) -goals of treatment reviewed with the patient. -currently on Lantus 70 units once daily in addition to semaglutide 1 mg weekly -repeat A1c to assess efficacy of current treatment - Comprehensive metabolic panel; Future - Hemoglobin A1c; Future - Lipid profile; Future 2. Essential hypertension -office readings are at goal -not able to check at home -continue current regimen of irbesartan 300 mg daily 3. Mixed hyperlipidemia -currently takes atorvastatin 40 mg daily -repeat lipid panel to assess efficacy of current treatment 4. Adenocarcinoma of rectum (CMS-HCC) -noted in a rectal mass found on colonoscopy last week -a CT/PET scan was ordered but not scheduled yet. I called Radiology directly, and obtained a number for the patient call to get this scheduled kofi. . Would like to get this done before she sees General surgery - CEA; Future 5. Carcinoma of vulva, FIGO stage IB (CMS-HCC) -remote history of same -no evidence of recurrence at this time Subjective DIABETIC VISIT This is a follow up of a pre-existing problem. Patient self monitoring includes finger stick BG checkin time/day. FBS normally 100-150 mg/dL. Highest reading was 180 mg/dL. Patient experiences hypoglycemia None. Patient symptoms of hyperglycemia include: none. Current prescribed diet is fairly healthy diet with limited sugars and fats. Patient is following the prescribed diet plan. However, does have food insecurity Home activity includes: The patient does not participate in regular exercise at present.. Patient does not experience numbness or burning in their hands or feet. Patient does not have vision changes. Last eye exam was: 2021 Patient BP monitoring is done sporadically, and can't recall values. Patient reports: taking medications as instructed, no medication side effects noted, no chest pain on exertion, no dyspnea on exertion, no swelling of ankles, no orthostatic dizziness or lightheadedness, no palpitations, and no intermittent claudication symptoms Issues affecting compliance with diabetic self management include: No problems with her current medications. Is happy about the weight loss with the Ozempic. Does have food insecurity, and difficultyobtaining fresh fruits and vegetables. A review of systems was negative except for the following: General: weight loss Psychiatric: depression Gastrointestinal: Recently found to have a rectal mass biopsied and consistent with adenocarcinoma.A PET/CT scan was ordered but not scheduled yet. She is scheduled to see General surgery in 1 week.Still with some intermittent rectal bleeding, but less than prior to the colonoscopy. Genito-Urinary: incontinence and urinary frequency/urgency. Exam BP 122/80 (BP Site: Left Arm, BP Postition: Sitting) Pulse 93 Temp 36.7 C (98.1 F) (Tympanic) Ht 170.2 cm (5' 7 ) Wt 87.4 kg (192 lb 11.2 oz) SpO2 99% BMI 30.18 kg/m Physical Exam Vitals reviewed. Constitutional: General: She is not in acute distress. Appearance: She is well-developed. She is obese. She is not toxic-appearing. HENT: Head: Normocephalic. Right Ear: External ear normal. Left Ear: External ear normal. Nose: Nose normal. Mouth/Throat: Mouth: Mucous membranes are moist. Eyes: General: No scleral icterus. Neck: Vascular: No carotid bruit. Cardiovascular: Rate and Rhythm: Normal rate and regular rhythm. Pulses: Normal pulses. Heart sounds: No murmur heard. No gallop. Pulmonary: Effort: Pulmonary effort is normal. Breath sounds: No wheezing or rales. Abdominal: Palpations: Abdomen is soft. Musculoskeletal: General: Normal range of motion. Right lower leg: No edema (Trace ankle). Left lower leg: No edema (Trace ankles). Skin: General: Skin is warm. Coloration: Skin is not jaundiced. Findings: No bruising. Neurological: General: No focal deficit present. Mental Status: She is alert and oriented to person, place, and time. Sensory: No sensory deficit (Intact vibratory sensation bilaterally on the toes, feet and ankles. Intact monofilament testing on the feet, toes and ankles bilaterally.). Motor: No weakness. Coordination: Coordination normal. Deep Tendon Reflexes: Reflexes are normal and symmetric. Psychiatric: Mood and Affect: Mood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 perineum documented [facility]* Diagnosis Hypokalemia due to excessive gastrointestinal loss of potassium- Primary documented in this encounter [facility]* Diagnosis Type 2 diabetes mellitus without complication, with long-term current use of insulin ([facility] documented in this encounter [facility]* Diagnosis Mixed hyperlipidemia documented in this encounter [facility]* Diagnosis Depression, unspecified depression type documented in this encounter [facility]* Diagnosis History of carcinoma in situ of vulva- Primary Atrophic vaginitis Postmenopausal atrophic vaginitis Vulvar lesion Other specified noninflammatory disorder of vulva and perineum Lichen sclerosus Circumscribed scleroderma documented in this encounter [facility]* Diagnosis Iron deficiency Disorders of iron metabolism documented in this encounter [facility]* Diagnosis Hypokalemia due to excessive gastrointestinal loss of potassium documented in this encounter [facility]* Diagnosis Adenocarcinoma of rectum ([facility]-HCC)- Primary Depression, unspecified depression type Hypokalemia due to excessive gastrointestinal loss of potassium Type 2 diabetes mellitus without complication, without long-term current use of insulin ([facility]) documented in this encounter [facility]* Diagnosis Type 2 diabetes mellitus with microalbuminuria, with long-term current use of insulin ([facility])- Primary Mixed hyperlipidemia documented in this encounter [facility]* Diagnosis Type 2 diabetes mellitus without complication, with long-term current use of insulin ([facility])- Primary Essential hypertension Unspecified essential hypertension Mixed hyperlipidemia documented in this encounter [facility]* Diagnosis Anxiety about health- Primary Mixed hyperlipidemia Iron deficiency Disorders of iron metabolism Essential hypertension Unspecified essential hypertension Type 2 diabetes mellitus without complication, with long-term current use of insulin ([facility]) Benign paroxysmal positional vertigo, unspecified laterality Panic attack as reaction to stress documented in this encounter [facility]* Diagnosis Essential hypertension- Primary Unspecified essential hypertension Type 2 diabetes mellitus without complication, with long-term current use of insulin ([facility]) documented in this encounter [facility]* Diagnosis Type 2 diabetes mellitus without complication, with long-term current use of insulin ([facility]) Type 2 diabetes mellitus with microalbuminuria, with long-term current use of insulin ([facility]) documented in this encounter [facility]* Diagnosis Type 2 diabetes mellitus without complication, with long-term current use of insulin ([facility]-HCC) documented in this encounter [facility]* Diagnosis Rectal cancer (HCC)- Primary Malignant neoplasm of rectum Type 2 diabetes mellitus with other specified complication, with long-term current use of insulin (HCC) Wound cellulitis Cellulitis and abscess of unspecified site [facility] Diagnosis Rectal cancer (HCC)- Primary Malignant neoplasm of rectum [facility]* Diagnosis Rectal cancer (HCC) Malignant neoplasm of rectum Pre-op evaluation- Primary Preoperative examination, unspecified PONV (postoperative nausea and vomiting) Nausea with vomiting Type 2 diabetes (HCC) Rectal cancer (HCC) Malignant neoplasm of rectum [facility] Diagnosis Benign paroxysmal positional vertigo, unspecified laterality Essential hypertension Unspecified essential hypertension Type 2 diabetes mellitus without complication, with long-term current use of insulin ([facility]) Iron deficiency Disorders of iron metabolism Mixed hyperlipidemia documented in this encounter [facility]* Diagnosis Malignant neoplasm of rectum (HCC)- Primary Malignant neoplasm of rectum Type 2 diabetes mellitus with other specified complication, with long-term current use of insulin (HCC) Other depression Wound cellulitis Cellulitis and abscess of unspecified site Rectal cancer (HCC) Malignant neoplasm of rectum Stage 3a chronic kidney disease (HCC) [facility]* Diagnosis Benign paroxysmal positional vertigo, unspecified laterality documented in this encounter [facility]* Diagnosis Encounter for subsequent annual wellness visit (AWV) in Medicare patient- Primary PAF (paroxysmal atrial fibrillation) ([facility]) Atrial fibrillation Encounter for screening mammogram for malignant neoplasm of breast documented [facility] encounter [facility]* Diagnosis Panic attack as reaction to stress Essential hypertension Unspecified essential hypertension Iron deficiency Disorders of iron metabolism documented in this encounter [facility]* Diagnosis Type 2 diabetes mellitus with microalbuminuria, with long-term current use of insulin ([facility])- Primary Depression, unspecified depression type Mixed hyperlipidemia documented in this encounter [facility]* Diagnosis Malignant neoplasm of rectum (HCC) Malignant neoplasm of rectum Type 2 diabetes mellitus with other specified complication, with long-term current use of insulin (HCC) Other depression Wound cellulitis Cellulitis and abscess of unspecified site Rectal cancer (HCC) Malignant neoplasm of rectum Stage 3a chronic kidney disease (HCC) [facility] Diagnosis Malignant neoplasm of rectum (HCC)- Primary Malignant neoplasm of rectum Type 2 diabetes mellitus with hyperglycemia, with long-term current use of insulin (HCC) Non-pressure chronic ulcer of skin of other sites with unspecified severity (HCC) Encounter for follow-up examination after completed treatment for conditions other than malignant neoplasm correction (current) use of insulin (HCC) Personal history of malignant neoplasm of rectum, rectosigmoid junction, and anus Non-pressure chronic ulcer of right lower leg, unspecified ulcer stage (HCC) Type 2 diabetes mellitus without complication, with long-term current use of insulin (HCC) Encounter for follow-up examination after completed treatment for malignant neoplasm Unspecified follow-up examination Family history of ischemic heart disease documented in this encounter [facility] note* Diagnosis Type 2 diabetes mellitus with microalbuminuria, with long-term current use of insulin ([facility]) [facility] Diagnosis Type 2 diabetes mellitus without complication, with long-term current use of insulin ([facility]) documented in this encounter [facility]* Diagnosis Benign paroxysmal positional vertigo, unspecified laterality documented in this encounter [facility] SystemHistory general Narrative - Reported* Type Description Date Medical History diabetes mallitus Medical History hypertension Medical History anxiety Medical History depression Medical History hx HPV Medical History Vaginal cancer Surgical History gall bladder Surgical History episiotomy Surgical History back surgery Surgical History sinus surgery Surgical History knee surgery Surgical History tubal ligation Surgical History labia lesion Hospitalization History See Above Hospitalization History food bolus- [facility] 05/2022 [facility] Other Hospital Discharge instructions Additional Instructions Please call Dr. Ba's office to reschedule your surgery. Plan to hold your Ozempic dose for 1 full week prior to surgery.[facility] Work Phone: InstructionsNot on filedocumented in this encounter [facility] [place] SystemInstructionsNot on filedocumented in this encounter [facility]InstructionsNot on filedocumented in this [facility] filedocumented in [facility] filedocumented in this [facility] on filedocumented in this encounter [facility] on filedocumented in this encounter [facility] filedocumented in this encounter [facility] on filedocumented in this encounter [facility] on filedocumented in this encounter [facility] filedocumented in this encounter [facility] on filedocumented in this encounter [facility] on filedocumented in this encounter [facility] on filedocumented in this encounter [facility] on filedocumented in this encounter [facility] on filedocumented in this encounter [facility]ructionsNot on filedocumented in this encounter [facility] on filedocumented in this encounter [facility]Not on filedocumented in this encounter [facility]Not on filedocumented in this encounter [facility] on filedocumented in this encounter [facility] on filedocumented in this encounter [facility]ructionsNot on filedocumented in this encounter [facility]ructionsNot on filedocumented in this encounter [facility] SystemInstructionsNot on filedocumented in this encounter [facility] SystemInstructionsNot on filedocumented in this encounter [facility] SystemReason for referral (narrative)* Consultation (Routine) - Pending Review Specialty Diagnoses / Procedures Referred By Dolores staples Referred To Contact Oncology / Gynecologic Oncology Diagnoses Atrophic vaginitis Hx of malignant neoplasm of vulva Vulvar lesion Grace Noble MD [facility] [address] [place] [address] [employer] Assistant Onc [address] [phone] Referral ID Status Reason Start Date Expiration Date Visits Requested Visits Authorized [id number] Pending Review Specialty Services Required 06/18/2023 06/17/2024 1 1 [facility] SystemReason for referral (narrative)* Consultation (Emergency) - Pending Review Specialty Diagnoses / Procedures Referred By Contac t Referred To Contact Colon and Rectal Surgery Diagnoses Rectal carcinoma (CMS-HCC) Chasity Diez DO [address] [place] [address] [facility] Phys Colorectal Surg [address] [place] [phone] Referral ID Status Reason Start Date Expiration Date Visits Requested Visits Authorized [id number] Pending Review Specialty Services Required 07/02/2023 07/01/2024 1 1 [facility] (narrative)* Consultation (Routine) - Pending Review Specialty Diagnoses / Procedures Referred By Contac t Referred To Contact Radiation Oncology Diagnoses Adenocarcinoma of rectum (CMS-HCC) Chasity Diez DO [address] [place] [id number] Kit Dee MD [address] [place] [address] [place] [address] Referral ID Status Reason Start Date Expiration Date Visits Requested Visits Authorized [id number] Pending Review Specialty Services Required 07/04/2023 07/03/2024 1 1 * Consultation (Routine) - Pending Review Specialty Diagnoses / Procedures Referred By Contac t Referred To Contact Oncology Diagnoses Adenocarcinoma of rectum (CMS-HCC) Chasity Diez DO [address] [place] [address] Blu Tellez MD [address] [place] [address] [place] [address] Referral ID Status Reason Start Date Expiration Date Visits Requested Visits Authorized [id number] Pending Review Specialty Services Required 07/04/2023 07/03/2024 1 1 * Consultation (Routine) - Pending Review Specialty Diagnoses / Procedures Referred By Contac t Referred To Contact Gastroenterology Diagnoses Adenocarcinoma of rectum (CMS-[place]CC) [place] [address] [place] [id number] Melisas Estevez MD [address] [place] [phone] Referral ID Status Reason Start Date Expiration Date Visits Requested Visits Authorized [id number] Pending Review Specialty Services Required 07/04/2023 07/03/2024 1 1 * Diagnostic Imaging (Routine) - Authorized Specialty Diagnoses / Procedures Referred By Contac t Referred To Contact Radiology Diagnoses Adenocarcinoma of rectum (CMS-HCC) Procedures CT abdomen and pelvis with contrast Chasity Diez DO [address] [place] [address] [facility] [address] [place] [address] Phone: [phone] Referral ID Status Reason Start Date Expiration Date V isits Requested Visits Authorized [id number] Authorized 07/04/2023 07/03/2024 1 1 [facility] for referral (narrative)* Consultation (Routine) - Pending Review Specialty Diagnoses / Procedures Referred By Contac t Referred To Contact Hospice and Palliative Medicine Diagnoses Adenocarcinoma of rectum (CMS-HCC) Keaton Hu, DO [address] [place] [address] Marcin Morrow Jr., DO [facility] [place] [address] Referral ID Status Reason Start Date Expiration Date V isits Requested Visits Authorized [id number] Pending Review 08/20/2023 08/19/2024 1 1 [facility] for visit Narrative* MRI/CT (Routine) - Closed Specialty Diagnoses / Procedures Referred By Contac t Referred To Contact MR IMAGING Diagnoses Rectal cancer (HCC) Wound cellulitis Type 2 diabetes mellitus with other specified complication, with long-term current use of insulin (HCC) Procedures MRI RECTUM WO/W IVCON MRI PELVIS W/O & W/CONTRAST MATERIAL Jessica Eubanks, MANOLO [address] [place] [address] Phone: tel: fax: [place] [address] Referral ID Status Reason Start Date Expiration Date V isits Requested Visits Authorized [id number] Closed Auto-Generate d Referral 06/04/2024 07/04/2025 1 1 [facility] for visit Narrative* Outpatient Procedure (Routine) - Closed Specialty Diagnoses / Procedures Referred By Contac t Referred To Contact [facility] Diagnoses Rectal cancer (HCC) Procedures SIGMOIDOSCOPY SIGMOIDOSCOPY FLX DX W/COLLJ SPEC BR/[place] [address] [place] [address] Phone: tel: fax: [facility] [address] [place] [address] Referral ID Status Reason Start Date Expiration Date V isits Requested Visits Authorized [id number] Closed Auto-Generate d Referral 07/21/2024 07/21/2025 1 1 [facility] for visit Narrative* MRI/CT (Routine) - Closed Specialty Diagnoses / Procedures Referred By Contac t Referred To Contact MR IMAGING Diagnoses Malignant neoplasm of rectum (HCC) Type 2 diabetes mellitus with other specified complication, with long-term current use of insulin (HCC) Other depression Wound cellulitis Rectal cancer (HCC) Stage 3a chronic kidney disease (HCC) Procedures MRI RECTUM WO/W IVCON MRI PELVIS W/O & W/CONTRAST MATERIAL Blu Tellez MD [address] [place] [address] [place] [address] Phone: tel: fax: [place] [address] Referral ID Status Reason Start Date Expiration Date V isits Requested Visits Authorized [id number] Closed Auto-Generate d Referral 11/14/2024 09/13/2025 1 1 [facility] Summary Purpose Family History Relationship Condition Age at Onset Recorded Date/T andrews brother Diabetes mellitus Unknown father Diabetes mellitus Unknown Heart disease Unknown Hypertension Unknown Not Specified Unknown Diabetes mellitus Unknown History of stroke Unknown Relationship Condition Age at Onset Recorded Date/T andrews brother Diabetes mellitus Unknown father Heart disease Unknown Hypertension Unknown mother Diabetes mellitus Unknown Unknown History of stroke Unknown Advance Directives Advance Directive Response Recorded Date/ Time Advance Directives No January 9:28am Advance Directive Response Recorded Date/ Time Advance Directives No January 10:28am Date Activated Date Inactivated Comments 07/30/2023 2:34 PM 08/01/2023 3:54 PM Date Activated Date Inactivated Comments 03/21/2021 2:25 PM 03/25/2021 8:35 PM Date Activated Date Inactivated Comments 11/01/2018 4:35 PM 11/03/2018 7:24 PM Latest Code Status on File Code Status Date Activated Date Inactivated Comments Full Code 03/21/2021 2:25 PM 03/25/2021 8:35 PM Code Status History Code Status Date Activated Date Inactivated Comments Full Code 11/01/2018 4:35 PM 11/03/2018 7:24 PM Latest Code Status on File Code Status Date Activated Date Inactivated Comments Full Code 03/21/2021 2:25 PM 03/25/2021 8:35 PM Code Status History Code Status Date Activated Date Inactivated Comments Full Code 11/01/2018 4:35 PM 11/03/2018 7:24 PM Latest Code Status on File Code Status Date Activated Date Inactivated Comments Full Code 07/30/2023 2:34 PM 08/01/2023 3:54 PM Code Status History Code Status Date Activated Date Inactivated Comments Full Code 03/21/2021 2:25 PM 03/25/2021 8:35 PM Full Code 11/01/2018 4:35 PM 11/03/2018 7:24 PM Latest Code Status on File Code Status Date Activated Date Inactivated Comments Full Code 07/30/2023 2:34 PM 08/01/2023 3:54 PM Code Status History Code Status Date Activated Date Inactivated Comments Full Code 03/21/2021 2:25 PM 03/25/2021 8:35 PM Full Code 11/01/2018 4:35 PM 11/03/2018 7:24 PM Date Activated Date Inactivated Comments 07/30/2023 2:34 PM 08/01/2023 3:54 PM Date Activated Date Inactivated Comments 03/21/2021 2:25 PM 03/25/2021 8:35 PM Date Activated Date Inactivated Comments 11/01/2018 4:35 PM 11/03/2018 7:24 PM Chief Complaint and Reason for Visit Chief Complaint f03.90 Chief Complaint Cough, Congestion, H eadache, Sore Throat Poss infected tooth Reason for Visit Bronchitis Chief Complaint Rectal Cancer Chief Complaint Admit Date Rectal Cancer February 13, 2024 10:58am Poss infected hair follicle March 9:56am Reason for Referral Specialty Diagnoses / Procedures Referred By Contac t Referred To Contact Diagnoses Type 2 diabetes mellitus with microalbuminuria, with long-term current use of insulin ([facility]) Keaton Hu, DO [address] [place] [address] Referral ID Status Reason Start Date Expiration Date V isits Requested Visits Authorized [id number] Pending Review 12/29/2023 12/28/2024 1 1 Specialty Diagnoses / Procedures Referred By Contac t Referred To Contact Radiology Diagnoses Rectal mass Procedures MR pelvis for rectal cancer Chasity Diez, DO [address] [place] [id number] Referral ID Status Reason Start Date Expiration Date V isits Requested Visits Authorized [id number] Pending Review 06/20/2023 06/19/2024 1 1 Specialty Diagnoses / Procedures Referred By Contac t Referred To Contact Radiation Oncology Diagnoses Rectal mass Chasity Diez, DO [address] [place] [address] [facility] On[facility] [address] [place] [address] Referral ID Status Reason Start Date Expiration Date Visits Requested Visits Authorized [id number] Pending Review Specialty Services Required 06/20/2023 06/19/2024 1 1 Specialty Diagnoses / Procedures Referred By Contac t Referred To Contact Oncology Diagnoses Rectal mass Chasity Diez, DO [address] [place] [address] Pfo Med Onc [address] [place] [address] Referral ID Status Reason Start Date Expiration Date Visits Requested Visits Authorized [id number] Pending Review Specialty Services Required 06/20/2023 06/19/2024 1 1 Specialty Diagnoses / Procedures Referred By Contac t Referred To Contact Diagnoses Rectal mass Procedures Colonoscopy Chasity Diez, DO [address] [place] [address] Referral ID Status Reason Start Date Expiration Date V isits Requested Visits Authorized [id number] Pending Review 06/20/2023 06/19/2024 1 1 Specialty Diagnoses / Procedures Referred By Contac t Referred To Contact Radiology Diagnoses Adenocarcinoma of rectum (CMS-HCC) Procedures PET CT skull to thigh Keaton Hu, DO [address] [place] [address] Referral ID Status Reason Start Date Expiration Date V isits Requested Visits Authorized [id number] Pending Review 05/31/2023 05/30/2024 1 1 Specialty Diagnoses / Procedures Referred By Contac t Referred To Contact General Surgery Diagnoses Adenocarcinoma of rectum (CMS-HCC) Keaton Hu, DO [address] [place] [address] Chasity Diez, DO [address] [place] [address] Referral ID Status Reason Start Date Expiration Date Visits Requested Visits Authorized [id number] Authorized Specialty Services Required 05/31/2023 05/30/2024 1 1 Specialty Diagnoses / Procedures Referred By Contac t Referred To Contact CT IMAGING Diagnoses Rectal cancer (HCC) Wound cellulitis Type 2 diabetes mellitus with other specified complication, with long-term current use of insulin (HCC) Procedures CT CHEST W IVCON DIAGNOSTIC COMPUTED TOMOGRAPHY THORAX W/CONTRAST Jessica Eubanks PA-C [address] [place] [address] [place] [address] [place] [address] Referral ID Status Reason Start Date Expiration Date Visits Requested Visits Authorized [id number] Authorized Auto-Generat ed Referral 06/04/2024 07/04/2025 1 1 Specialty Diagnoses / Procedures Referred By Contac t Referred To Contact CT IMAGING Diagnoses Rectal cancer (HCC) Wound cellulitis Type 2 diabetes mellitus with other specified complication, with long-term current use of insulin (HCC) Procedures CT ABD/PEL W IVCON CT ABD & PELVIS W/CONTRAST Jessica Eubanks PA-C [address] [place] [address] [place] [address] [place] [address] Referral ID Status Reason Start Date Expiration Date Visits Requested Visits Authorized [id number] Authorized Auto-Generat ed Referral 06/04/2024 07/04/2025 1 1 Specialty Diagnoses / Procedures Referred By Contac t Referred To Contact MR IMAGING Diagnoses Rectal cancer (HCC) Wound cellulitis Type 2 diabetes mellitus with other specified complication, with long-term current use of insulin (HCC) Procedures MRI RECTUM WO/W IVCON MRI PELVIS W/O & W/CONTRAST MATERIAL Jessica Eubakns PA-C [address] [place] [address] [place] [address] [place] [address] Referral ID Status Reason Start Date Expiration Date Visits Requested Visits Authorized [id number] Authorized Auto-Generat ed Referral 06/04/2024 07/04/2025 1 1 Specialty Diagnoses / Procedures Referred By Contac t Referred To Contact CT IMAGING Diagnoses Malignant neoplasm of rectum (HCC) Rectal cancer (HCC) Lung nodules Procedures CT CHEST W IVCON DIAGNOSTIC COMPUTED TOMOGRAPHY THORAX W/CONTRAST Jessica Eubanks PA-C [address] [place] [address] [place] [address] [place] [address] Referral ID Status Reason Start Date Expiration Date Visits Requested Visits Authorized [id number] Authorized Auto-Generat ed Referral 11/21/2023 12/20/2024 1 1 Specialty Diagnoses / Procedures Referred By Contac t Referred To Contact MR IMAGING Diagnoses Malignant neoplasm of rectum (HCC) Procedures MRI RECTUM WO/W IVCON MRI PELVIS W/O & W/CONTRAST MATERIAL Jessica Eubanks PA-C [address] [place] [address] [place] [address] Mr Imaging [facility] Referral ID Status Reason Start Date Expiration Date Visits Requested Visits Authorized [id number] Authorized Auto-Generat ed Referral 11/21/2023 12/20/2024 1 1 Specialty Diagnoses / Procedures Referred By Contac t Referred To Contact Dentistry Diagnoses Rectal adenocarcinoma (HCC) Procedures CONSULT TO DENTISTRY OFFICE/OUTPATIENT NEW HIGH MDM 60 MINUTES Patricia Dee MD [address] [place] [address] [place] [address] Referral ID Status Reason Start Date Expiration Date Visits Requested Visits Authorized [id number] Pending Review PCP Requested Referral 09/26/2023 09/25/2024 1 1 Specialty Diagnoses / Procedures Referred By Contac t Referred To Contact Diagnoses Rectal adenocarcinoma (HCC) Procedures CT SIM PLANNING RADIATION ONCOLOGY THER RAD SIMULAJ-AIDED FIELD SETTING COMPLEX Patricia Dee MD [address] [place] [address] [place] [address] Referral ID Status Reason Start Date Expiration Date Visits Requested Visits Authorized [id number] Pending Review PCP Requested Referral 09/24/2023 12/17/2023 1 1 Specialty Diagnoses / Procedures Referred By Contac t Referred To Contact Colon and Rectal Surgery Diagnoses Rectal cancer (HCC) Procedures CONSULT TO COLO-RECTAL SURGERY OFFICE/OUTPATIENT [facility] MDM 60 MINUTES Arturo Mcdonald MD [address] [place], [place] [address] Referral ID Status Reason Start Date Expiration Date Visits Requested Visits Authorized [id number] Authorized PCP Requested Referral 07/10/2023 07/09/2024 1 1 Specialty Diagnoses / Procedures Referred By Contac t Referred To Contact CT IMAGING Diagnoses Rectal cancer (HCC) Malignant neoplasm of rectum (HCC) Procedures CT ABD/PEL W IVCON CT ABD & PELVIS W/CONTRAST Arturo Mcdonald MD [address] [place], [place] [address] [place] [address] Referral ID Status Reason Start Date Expiration Date Visits Requested Visits Authorized [id number] Authorized Auto-Generat ed Referral 07/10/2023 08/08/2024 1 1 Specialty Diagnoses / Procedures Referred By Contac t Referred To Contact CT IMAGING Diagnoses Rectal cancer (HCC) Malignant neoplasm of rectum (HCC) Procedures CT CHEST W IVCON DIAGNOSTIC COMPUTED TOMOGRAPHY THORAX W/CONTRAST Arturo Mcdonald MD [address] [place], [place] [address] Ct Imaging [facility] Referral ID Status Reason Start Date Expiration Date Visits Requested Visits Authorized [id number] Authorized Auto-Generat ed Referral 07/10/2023 08/08/2024 1 1 Specialty Diagnoses / Procedures Referred By Contac t Referred To Contact MR IMAGING Diagnoses Rectal cancer (HCC) Procedures MRI RECTUM WO/W IVCON MRI PELVIS W/O & W/CONTRAST MATERIAL Arturo Mcdonald MD [address] [place], [place] [address] [place] [address] Referral ID Status Reason Start Date Expiration Date Visits Requested Visits Authorized [id number] Authorized Auto-Generat ed Referral 07/10/2023 08/08/2024 1 1 Additional Source Comments INFORMATION SOURCE (unrecogn ized section and content) DATE CREATED AUTHOR 12/24/2021 [facility] DATE CREATED AUTHOR AUTHOR'S ORGANIZ ATION 08/11/2023 [facility] DATE CREATED AUTHOR AUTHOR'S ORGANIZ ATION 02/24/2024 [facility] DATE CREATED AUTHOR AUTHOR'S ORGANIZ ATION 05/12/2024 [facility] DATE CREATED AUTHOR AUTHOR'S ORGANIZ ATION 07/31/2024 [facility] DATE CREATED AUTHOR AUTHOR'S ORGANIZ ATION 11/02/2024 [facility] DATE CREATED AUTHOR AUTHOR'S ORGANIZ ATION 11/04/2024 [facility] DATE CREATED AUTHOR AUTHOR'S ORGANIZ ATION 11/17/2024 [facility] DATE CREATED AUTHOR AUTHOR'S ORGANIZ ATION 11/27/2024 [facility] Care Teams (unrecognized sec tion and content) Team Status: Inactive Member Role Status Dates Noel Kam DO Attending Provider Active Tate Mancera , Primary Care Provider Active Team Status: Active Member Role Status Dates Tate Mancera DO Primary Care Provider Active Team Status: Inactive Member Role Status Dates Tate Mancera , Primary Care Provider Active Briseyda Eastman NP-C Attending Provider Active Eyeglass Frames Inspector Relationship Specialty Start Date End Date Tate Mancera Sr., [address] [place] [address] PCP - General Family Medicine 09/05/18 Yanick Cesar [address] [place] [address] Referring Mri Technician 09/05/18 Eyeglass Frames Inspector Relationship Specialty Start Date End Date Keaton Hu [address] [place] [address] PCP - General Internal Medicine 07/10/23 Yanick Cesar [address] [place] [phone] Referring Mri Technician 09/05/18 Pauline Fatima LSW Consulting Sales Manager 07/10/23 Eyeglass Frames Inspector Relationship Specialty Start Date End Date Keaton Hu [address] [place] [address] PCP - General Internal Medicine 07/10/23 Yanick Cesar [address] [place] [address] Referring Mri Technician 09/05/18 Pauline Fatima, SALES MANAGEMENT TRAINEE Consulting Sales Manager 07/10/23 Eyeglass Frames Inspector Relationship Specialty Start Date End Date Keaton Hu [address] [place] [address] PCP - General Internal Medicine 07/10/23 Yanick Cesar [address] [place] [phone] Referring Mri Technician 09/05/18 Pauline Fatima, SALES MANAGEMENT TRAINEE Consulting Sales Manager 07/10/23 Eyeglass Frames Inspector Relationship Specialty Start Date End Date Keaton Hu [address] [place] [address] PCP - General Internal Medicine 07/10/23 Yanick Cesar [address] [place] [phone] Referring Mri Technician 09/05/18 Pauline Fatima, SALES MANAGEMENT TRAINEE Consulting Sales Manager 07/10/23 Eyeglass Frames Inspector Relationship Specialty Start Date End Date Keaton [place] [address] [place] [address] PCP - General Internal Medicine 07/10/23 Yanick Cesar [address] [place] [address] Referring Mri Technician 09/05/18 Pauline Fatima LSW Consulting Sales Manager 07/10/23 Eyeglass Frames Inspector Relationship Specialty Start Date End Date Keaton Hu [address] [place] [address] PCP - General Internal Medicine 07/10/23 Yanick Cesar [address] [place] [address] Referring Mri Technician 09/05/18 Pauline Fatima, VERNON Consulting Sales Manager 07/10/23 Eyeglass Frames Inspector Relationship Specialty Start Date End Date Keaton Hu [address] [place] [address] PCP - General Internal Medicine 07/10/23 Yanick Cesar [address] [place] [address] Referring Mri Technician 09/05/18 Pauline Fatima, VERNON Consulting Sales Manager 07/10/23 Eyeglass Frames Inspector Relationship Specialty Start Date End Date Keaton Hu [address] [place] [address] PCP - General Internal Medicine 07/10/23 Yanick Cesar [address] [place] [address] Referring Mri Technician 09/05/18 Pauline Fatima, VERNON Consulting Sales Manager 07/10/23 Eyeglass Frames Inspector Relationship Specialty Start Date End Date Keaton Hu [address] [place] [address] PCP - General Internal Medicine 07/10/23 Yanick Cesar [address] [place] [address] Referring Mri Technician 09/05/18 Pauline Fatima LSW Consulting Sales Manager 07/10/23 Team Status: Active Member Role Status Dates Keaton Hu DO Primary Care Provider Active Team Status: Inactive Member Role Status Dates Mary Ward APRN Attending Provider Active Start: July 26, 2023 End: July 26, 2023 Keaton Hu DO Primary Care Provider Active Sta rt: July 26, 2023 End: July 26, 2023 Team Status: Inactive Member Role Status Dates Keaton Hu DO Primary Care Provider Active Sta rt: September 11, 2023 End: September 11, 2023 Mary Ward APRN Attending Provider Active Start: September 11, 2023 End: September 11, 2023 Eyeglass Frames Inspector Relationship Specialty Start Date End Date Keaton Hu [address] [place] [address] PCP - General Internal Medicine 07/10/23 Yanick Cesar [address] [place] [address] Referring Mri Technician 09/05/18 Pauline Fatima LSW Consulting Sales Manager 07/10/23 Eyeglass Frames Inspector Relationship Specialty Start Date End Date Keaton Hu [address] [place] [address] PCP - General Internal Medicine 07/10/23 Yanick Cesar [address] [place] [address] Referring Mri Technician 09/05/18 Pauline Fatima LSW Consulting Sales Manager 07/10/23 Eyeglass Frames Inspector Relationship Specialty Start Date End Date JhKeaton [address] [place] [address] PCP - General Internal Medicine 07/10/23 Yanick Cesar [address] [place] [address] Referring Mri Technician 09/05/18 Pauline Fatima LSW Consulting Sales Manager 07/10/23 Eyeglass Frames Inspector Relationship Specialty Start Date End Date MarissarobeKeaton denis [address] [place] [address] PCP - General Internal Medicine 07/10/23 Yanick Cesar [address] [place] [address] Referring Mri Technician 09/05/18 Pauline Fatima LSW Consulting Sales Manager 07/10/23 Eyeglass Frames Inspector Relationship Specialty Start Date End Date Keaton Hu [address] [place] [address] PCP - General Internal Medicine 07/10/23 Yanick Cesar [address] [place] [address] Referring Mri Technician 09/05/18 Pauline Fatima LSW Consulting Sales Manager 07/10/23 Little Bowens RN [address] [facility] [place] [address] Specialty Laborer Pipelines Hematology/Oncology 09/19/23 Arturo Mcdonald MD [address] [place] [address] Physician Hematology/Oncology 09/19/23 Jessica Eubanks PA-C [address] [place] [address] [place] [address] Physician Screen Maker Hematology/Oncology 09/19/23 Eyeglass Frames Inspector Relationship Specialty Start Date End Date Keaton Hu [address] [place] [address] PCP - General Internal Medicine 07/10/23 Yanick Cesar [address] [place] [address] Referring Mri Technician 09/05/18 Pauline Fatima LSW Consulting Sales Manager 07/10/23 Little Bowens, RN [address] [place] [address] [place] [address] Specialty Laborer Pipelines Hematology/Oncology 09/19/23 Arturo Mcdonald MD [address] [place] [address] Physician Hematology/Oncology 09/19/23 Jessica Eubanks PA-C [address] [place] [address] [place] [address] Physician Screen Maker Hematology/Oncology 09/19/23 Eyeglass Frames Inspector Relationship Specialty Start Date End Date Keaton Hu [address] [place] [address] PCP - General Internal Medicine 07/10/23 Yanick Cesar [address] [place] [address] Referring Mri Technician 09/05/18 Pauline Fatima, SALES MANAGEMENT TRAINEE Consulting Sales Manager 07/10/23 Little Bowens RN [address] [facility] [place] [address] Specialty Laborer Pipelines Hematology/Oncology 09/19/23 Arturo Mcdonald MD [address] [facility] [place] [address] Physician Hematology/Oncology 09/19/23 Jessica Eubanks PA-C [address] [place] [address] [place] [address] Physician Screen Maker Hematology/Oncology 09/19/23 Eyeglass Frames Inspector Relationship Specialty Start Date End Date Keaton Hu [address] [place] [address] PCP - General Internal Medicine 07/10/23 Yanick Cesar [address] [place] [address] Referring Mri Technician 09/05/18 Pauline Fatima, SALES MANAGEMENT TRAINEE Consulting Sales Manager 07/10/23 Little Bowens RN [address] [facility] [place] [address] Specialty Laborer Pipelines Hematology/Oncology 09/19/23 Arturo Mcdonald MD [address] [facility] [place] [address] Physician Hematology/Oncology 09/19/23 Jessica Eubanks PA-C [address] [facility] [place] [address] Physician Screen Maker Hematology/Oncology 09/19/23 Eyeglass Frames Inspector Relationship Specialty Start Date End Date Keaton Huard [address] [place] [address] PCP - General Internal Medicine 07/10/23 Yanick Cesar [address] [place] [address] Referring Mri Technician 09/05/18 Pauline Fatima, SALES MANAGEMENT TRAINEE Consulting Sales Manager 07/10/23 Little Bowens, RN [address] [facility] [place] [address] Specialty Laborer Pipelines Hematology/Oncology 09/19/23 Arturo Mcdonald MD [address] [place] [address] Physician Hematology/Oncology 09/19/23 Jessica Eubanks PA-C [address] [facility] [place] [address] Physician Screen Maker Hematology/Oncology 09/19/23 Eyeglass Frames Inspector Relationship Specialty Start Date End Date Keaton Hu [address] [place] [address] PCP - General Internal Medicine 07/10/23 Yanick Cesar [address] [place] [place] [address] Referring Mri Technician 09/05/18 Pauline Fatima, SALES MANAGEMENT TRAINEE Consulting Sales Manager 07/10/23 Little Bowens, RN [address] [facility] [place] [address] Specialty Laborer Pipelines Hematology/Oncology 09/19/23 Arturo Mcdonald MD [address] [place] [address] Physician Hematology/Oncology 09/19/23 Jessica Eubanks PA-C [address] [place] [address] [place] [address] Physician Screen Maker Hematology/Oncology 09/19/23 Eyeglass Frames Inspector Relationship Specialty Start Date End Date Keaton Hu [address] [place] [address] PCP - General Internal Medicine 07/10/23 Yanick Cesar [address] [place] [address] Referring Mri Technician 09/05/18 Pauline Fatima LSW Consulting Sales Manager 07/10/23 Little Bowens, RN [address] [place] [address] [place] [address] Specialty Laborer Pipelines Hematology/Oncology 09/19/23 Arturo Mcdonald MD [address] [place] [address] Physician Hematology/Oncology 09/19/23 Jessica Eubanks PA-C [address] [place] [address] [place] [address] Physician Screen Maker Hematology/Oncology 09/19/23 Eyeglass Frames Inspector Relationship Specialty Start Date End Date Keaton Hu [address] [place] [address] PCP - General Internal Medicine 07/10/23 Yanick Cesar [address] [place] [address] Referring Mri Technician 09/05/18 Pauline Fatima, SALES MANAGEMENT TRAINEE Consulting Sales Manager 07/10/23 Little Bowens RN [address] [facility] [facility] [place] [address] Specialty Laborer Pipelines Hematology/Oncology 09/19/23 Arturo Mcdonald MD [address] [facility] [place] [address] Physician Hematology/Oncology 09/19/23 Jessica Eubanks PA-C [address] [place] [address] [place] [address] Physician Screen Maker Hematology/Oncology 09/19/23 Eyeglass Frames Inspector Relationship Specialty Start Date End Date Keaton Hu [address] [place] [address] PCP - General Internal Medicine 07/10/23 Yanick Cesar [address] [place] [address] Referring Mri Technician 09/05/18 Pauline Fatima, SALES MANAGEMENT TRAINEE Consulting Sales Manager 07/10/23 Little Bowens RN [address] [facility] [facility] [place] [address] Specialty Laborer Pipelines Hematology/Oncology 09/19/23 Arturo Mcdonald MD [address] [facility] [place] [address] Physician Hematology/Oncology 09/19/23 Jessica Eubanks PA-C [address] [facility] [place] [address] Physician Screen Maker Hematology/Oncology 09/19/23 Eyeglass Frames Inspector Relationship Specialty Start Date End Date Keaton Huard [address] [place] [address] PCP - General Internal Medicine 07/10/23 Yanick Cesar [address] [place] [address] Referring Mri Technician 09/05/18 Pauline Fatima, SALES MANAGEMENT TRAINEE Consulting Sales Manager 07/10/23 Little Bowens, RN [address] [facility] [facility] [place] [address] Specialty Laborer Pipelines Hematology/Oncology 09/19/23 Arturo Mcdonald MD [address] [place] [address] Physician Hematology/Oncology 09/19/23 Jessica Eubanks PA-C [address] [facility] [facility] [place] [address] Physician Screen Maker Hematology/Oncology 09/19/23 Eyeglass Frames Inspector Relationship Specialty Start Date End Date Keaton Hu [address] [place] [address] PCP - General Internal Medicine 07/10/23 Yanick Cesar [address] [place] [place] [address] Referring Mri Technician 09/05/18 Pauline Fatima, SALES MANAGEMENT TRAINEE Consulting Sales Manager 07/10/23 Little Bowens, RN [address] [facility] [place] [address] Specialty Laborer Pipelines Hematology/Oncology 09/19/23 Arturo Mcdonald MD [address] [place] [address] Physician Hematology/Oncology 09/19/23 Jessica Eubanks PA-C [address] [place] [address] [place] [address] Physician Screen Maker Hematology/Oncology 09/19/23 Eyeglass Frames Inspector Relationship Specialty Start Date End Date Keaton Hu [address] [place] [address] PCP - General Internal Medicine 07/10/23 Yanick Cesar [address] [place] [address] Referring Mri Technician 09/05/18 Pauline Fatima LSW Consulting Sales Manager 07/10/23 Little Bowens, RN [address] [place] [address] [place] [address] Specialty Laborer Pipelines Hematology/Oncology 09/19/23 Arturo Mcdonald MD [address] [place] [address] Physician Hematology/Oncology 09/19/23 Jessica Eubanks PA-C [address] [place] [address] [place] [address] Physician Screen Maker Hematology/Oncology 09/19/23 Eyeglass Frames Inspector Relationship Specialty Start Date End Date Keaton Hu [address] [place] [address] PCP - General Internal Medicine 07/10/23 Yanick Cesar [address] [place] [address] Referring Mri Technician 09/05/18 Pauline Fatima, SALES MANAGEMENT TRAINEE Consulting Sales Manager 07/10/23 Little Bowens RN [address] [facility] [facility] [place] [address] Specialty Laborer Pipelines Hematology/Oncology 09/19/23 Arturo Mcdonald MD [address] [facility] [place] [address] Physician Hematology/Oncology 09/19/23 Jessica Eubanks PA-C [address] [place] [address] [place] [address] Physician Screen Maker Hematology/Oncology 09/19/23 Eyeglass Frames Inspector Relationship Specialty Start Date End Date Keaton Hu [address] [place] [address] PCP - General Internal Medicine 07/10/23 Yanick Cesar [address] [place] [address] Referring Mri Technician 09/05/18 Pauline Fatima, SALES MANAGEMENT TRAINEE Consulting Sales Manager 07/10/23 Little Bowens RN [address] [facility] [facility] [place] [address] Specialty Laborer Pipelines Hematology/Oncology 09/19/23 Arturo Mcdonald MD [address] [facility] [place] [address] Physician Hematology/Oncology 09/19/23 Jessica Eubanks PA-C [address] [facility] [place] [address] Physician Screen Maker Hematology/Oncology 09/19/23 Eyeglass Frames Inspector Relationship Specialty Start Date End Date Keaton Huard [address] [place] [address] PCP - General Internal Medicine 07/10/23 Yanick Cesar [address] [place] [address] Referring Mri Technician 09/05/18 Pauline Fatima, SALES MANAGEMENT TRAINEE Consulting Sales Manager 07/10/23 Little Bowens, RN [address] [facility] [facility] [place] [address] Specialty Laborer Pipelines Hematology/Oncology 09/19/23 Arturo Mcdonald MD [address] [place] [address] Physician Hematology/Oncology 09/19/23 Jessica Eubanks PA-C [address] [facility] [facility] [place] [address] Physician Screen Maker Hematology/Oncology 09/19/23 Eyeglass Frames Inspector Relationship Specialty Start Date End Date Keaton Hu [address] [place] [address] PCP - General Internal Medicine 07/10/23 Yanick Cesar [address] [place] [place] [address] Referring Mri Technician 09/05/18 Pauline Fatima, SALES MANAGEMENT TRAINEE Consulting Sales Manager 07/10/23 Little Bowens, RN [address] [facility] [facility] [place] [address] Specialty Laborer Pipelines Hematology/Oncology 09/19/23 Arturo Mcdonald MD [address] [place] [address] Physician Hematology/Oncology 09/19/23 Jessica Eubanks PA-C [address] [place] [address] [place] [address] Physician Screen Maker Hematology/Oncology 09/19/23 Eyeglass Frames Inspector Relationship Specialty Start Date End Date Keaton Hu [address] [place] [address] PCP - General Internal Medicine 07/10/23 Yanick Cesar [address] [place] [address] Referring Mri Technician 09/05/18 Pauline Fatima LSW Consulting Sales Manager 07/10/23 Little Bowens, RN [address] [place] [address] [place] [address] Specialty Laborer Pipelines Hematology/Oncology 09/19/23 Arturo Mcdonald MD [address] [place] [address] Physician Hematology/Oncology 09/19/23 Jessica Eubanks PA-C [address] [place] [address] [place] [address] Physician Screen Maker Hematology/Oncology 09/19/23 Eyeglass Frames Inspector Relationship Specialty Start Date End Date Keaton Hu [address] [place] [address] PCP - General Internal Medicine 07/10/23 Yanick Cesar [address] [place] [address] Referring Mri Technician 09/05/18 Pauline Fatima, SALES MANAGEMENT TRAINEE Consulting Sales Manager 07/10/23 Little Bowens RN [address] [facility] [facility] [place] [address] Specialty Laborer Pipelines Hematology/Oncology 09/19/23 Arturo Mcdonald MD [address] [facility] [place] [address] Physician Hematology/Oncology 09/19/23 Jsesica Eubanks PA-C [address] [place] [address] [place] [address] Physician Screen Maker Hematology/Oncology 09/19/23 Eyeglass Frames Inspector Relationship Specialty Start Date End Date Keaton Hu [address] [place] [address] PCP - General Internal Medicine 07/10/23 Yanick Cesar [address] [place] [address] Referring Mri Technician 09/05/18 Pauline Fatima, SALES MANAGEMENT TRAINEE Consulting Sales Manager 07/10/23 Little Bowens RN [address] [facility] [facility] [place] [address] Specialty Laborer Pipelines Hematology/Oncology 09/19/23 Arturo Mcdonald MD [address] [facility] [place] [address] Physician Hematology/Oncology 09/19/23 Jessica Eubanks PA-C [address] [facility] [place] [address] Physician Screen Maker Hematology/Oncology 09/19/23 Eyeglass Frames Inspector Relationship Specialty Start Date End Date Keaton Huard [address] [place] [address] PCP - General Internal Medicine 07/10/23 Yanick Cesar [address] [place] [address] Referring Mri Technician 09/05/18 Pauline Fatima, SALES MANAGEMENT TRAINEE Consulting Sales Manager 07/10/23 Little Bowens, RN [address] [facility] [place] [address] Specialty Laborer Pipelines Hematology/Oncology 09/19/23 Arturo Mcdonald MD [address] [place] [address] Physician Hematology/Oncology 09/19/23 Jessica Eubanks PA-C [address] [facility] [facility] [place] [address] Physician Screen Maker Hematology/Oncology 09/19/23 Eyeglass Frames Inspector Relationship Specialty Start Date End Date Keaton Hu [address] [place] [address] PCP - General Internal Medicine 07/10/23 Yanick Cesar [address] [place] [place] [address] Referring Mri Technician 09/05/18 Pauline Fatima, SALES MANAGEMENT TRAINEE Consulting Sales Manager 07/10/23 Little Bowens, RN [address] [facility] [place] [address] Specialty Laborer Pipelines Hematology/Oncology 09/19/23 Arturo Mcdonald MD [address] [place] [address] Physician Hematology/Oncology 09/19/23 Jessica Eubanks PA-C [address] [place] [address] [place] [address] Physician Screen Maker Hematology/Oncology 09/19/23 Eyeglass Frames Inspector Relationship Specialty Start Date End Date Keaton Hu [address] [place] [address] PCP - General Internal Medicine 07/10/23 Yanick Cesar [address] [place] [address] Referring Mri Technician 09/05/18 Pauline Fatima LSW Consulting Sales Manager 07/10/23 Litlte Bowens, RN [address] [place] [address] [place] [address] Specialty Laborer Pipelines Hematology/Oncology 09/19/23 Arturo Mcdonald MD [address] [place] [address] Physician Hematology/Oncology 09/19/23 Jessica Eubanks PA-C [address] [place] [address] [place] [address] Physician Screen Maker Hematology/Oncology 09/19/23 Eyeglass Frames Inspector Relationship Specialty Start Date End Date Keaton Hu [address] [place] [address] PCP - General Internal Medicine 07/10/23 Yanick Cesar [address] [place] [address] Referring Mri Technician 09/05/18 Pauline Fatima, SALES MANAGEMENT TRAINEE Consulting Sales Manager 07/10/23 Little Bowens RN [address] [facility] [facility] [place] [address] Specialty Laborer Pipelines Hematology/Oncology 09/19/23 Arturo Mcdonald MD [address] [facility] [place] [address] Physician Hematology/Oncology 09/19/23 Jessica Eubanks PA-C [address] [place] [address] [place] [address] Physician Screen Maker Hematology/Oncology 09/19/23 Eyeglass Frames Inspector Relationship Specialty Start Date End Date Keaton Hu [address] [place] [address] PCP - General Internal Medicine 07/10/23 Yanick Cesar [address] [place] [address] Referring Mri Technician 09/05/18 Pauline Fatima, SALES MANAGEMENT TRAINEE Consulting Sales Manager 07/10/23 Little Bowens RN [address] [facility] [facility] [place] [address] Specialty Laborer Pipelines Hematology/Oncology 09/19/23 Arturo Mcdonald MD [address] [facility] [place] [address] Physician Hematology/Oncology 09/19/23 Jessica Eubanks PA-C [address] [facility] [place] [address] Physician Screen Maker Hematology/Oncology 09/19/23 Eyeglass Frames Inspector Relationship Specialty Start Date End Date Keaton Huard [address] [place] [address] PCP - General Internal Medicine 07/10/23 Yanick Cesar [address] [place] [phone] Referring Mri Technician 09/05/18 Pauline Fatima, SALES MANAGEMENT TRAINEE Consulting Sales Manager 07/10/23 Little Bowens, RN [address] [facility] [place] [address] Specialty Laborer Pipelines Hematology/Oncology 09/19/23 Arturo Mcdonald MD [address] [place] [address] Physician Hematology/Oncology 09/19/23 Jessica Eubanks PA-C [address] [facility] [facility] [place] [address] Physician Screen Maker Hematology/Oncology 09/19/23 Eyeglass Frames Inspector Relationship Specialty Start Date End Date Keaton Hu [address] [place] [address] PCP - General Internal Medicine 07/10/23 Yanick Cesar [address] [place] [place] [address] Referring Mri Technician 09/05/18 Pauline Fatima, SALES MANAGEMENT TRAINEE Consulting Sales Manager 07/10/23 Little Bowens, RN [address] [facility] [facility] [place] [address] Specialty Laborer Pipelines Hematology/Oncology 09/19/23 Arturo Mcdonald MD [address] [place] [address] Physician Hematology/Oncology 09/19/23 Jessica Eubanks PA-C [address] [place] [address] [place] [address] Physician Screen Maker Hematology/Oncology 09/19/23 Eyeglass Frames Inspector Relationship Specialty Start Date End Date Keaton Hu [address] [place] [address] PCP - General Internal Medicine 07/10/23 Yanick Cesar [address] [place] [address] Referring Mri Technician 09/05/18 Pauline Fatima LSW Consulting Sales Manager 07/10/23 Little Bowens, RN [address] [place] [address] [place] [address] Specialty Laborer Pipelines Hematology/Oncology 09/19/23 Arturo Mcdonald MD [address] [place] [address] Physician Hematology/Oncology 09/19/23 Jessica Eubanks PA-C [address] [place] [address] [place] [address] Physician Screen Maker Hematology/Oncology 09/19/23 Eyeglass Frames Inspector Relationship Specialty Start Date End Date Keaton Hu [address] [place] [address] PCP - General Internal Medicine 07/10/23 Yanick Cesar [address] [place] [address] Referring Mri Technician 09/05/18 Pauline Fatima, SALES MANAGEMENT TRAINEE Consulting Sales Manager 07/10/23 Little Bowens RN [address] [facility] [facility] [place] [address] Specialty Laborer Pipelines Hematology/Oncology 09/19/23 Arturo Mcdonald MD [address] [facility] [place] [address] Physician Hematology/Oncology 09/19/23 Jessica Eubanks PA-C [address] [place] [address] [place] [address] Physician Screen Maker Hematology/Oncology 09/19/23 Eyeglass Frames Inspector Relationship Specialty Start Date End Date Keaton Hu [address] [place] [address] PCP - General Internal Medicine 07/10/23 Yanick Cesar [address] [place] [address] Referring Mri Technician 09/05/18 Pauline Fatima, SALES MANAGEMENT TRAINEE Consulting Sales Manager 07/10/23 Little Bowens RN [address] [facility] [facility] [place] [address] Specialty Laborer Pipelines Hematology/Oncology 09/19/23 Arturo Mcdonald MD [address] [facility] [place] [address] Physician Hematology/Oncology 09/19/23 Jessica Eubanks PA-C [address] [facility] [place] [address] Physician Screen Maker Hematology/Oncology 09/19/23 Eyeglass Frames Inspector Relationship Specialty Start Date End Date Keaton Hu [address] [place] [address] PCP - General Internal Medicine 07/10/23 aYnick Cesar [address] [place] [address] Referring Mri Technician 09/05/18 Pauline Fatima, SALES MANAGEMENT TRAINEE Consulting Sales Manager 07/10/23 Little Bowens, RN [address] [place] [address] Specialty Laborer Pipelines Hematology/Oncology 09/19/23 Arturo Mcdonald MD [address] [place] [address] Physician Hematology/Oncology 09/19/23 Jessica Eubanks PA-C [address] [place] [address] Physician Screen Maker Hematology/Oncology 09/19/23 Eyeglass Frames Inspector Relationship Specialty Start Date End Date Keaton Hu [address] [place] [address] PCP - General Internal Medicine 07/10/23 Yanick Cesar [address] [place] [address] Referring Mri Technician 09/05/18 Pauline Fatima, SALES MANAGEMENT TRAINEE Consulting Sales Manager 07/10/23 Little Bowens, RN [address] [place] [address] Specialty Laborer Pipelines Hematology/Oncology 09/19/23 Jessica Eubanks PA-C [address] [place] [address] [place] [address] Physician Screen Maker Hematology/Oncology 09/19/23 Blu Tellez MD [address] [place] [address] [place] [address] Physician Hematology/Oncology 01/04/24 Eyeglass Frames Inspector Relationship Specialty Start Date End Date Keaton Hu [address] [place] [address] PCP - General Internal Medicine 07/10/23 Yanick Cesar [address] [place] [address] Referring Mri Technician 09/05/18 Pauline Fatima LSW Consulting Sales Manager 07/10/23 Little Bowens, CIPRIANO [address] [facility] [place] [address] Specialty Laborer Pipelines Hematology/Oncology 09/19/23 Jessica Eubanks PANicholeC [address] [place] [address] [place] [address] Physician Screen Maker Hematology/Oncology 09/19/23 Blu Tellez MD [address] [place] [address] [place] [address] Physician Hematology/Oncology 01/04/24 Eyeglass Frames Inspector Relationship Specialty Start Date End Date Keaton Hu [address] [place] [address] PCP - General Internal Medicine 07/10/23 Yanick Cesar [address] [place] [address] Referring Mri Technician 09/05/18 Pauline Fatima, SALES MANAGEMENT TRAINEE Consulting Sales Manager 07/10/23 Little Bowens RN [address] [facility] [place] [address] Specialty Laborer Pipelines Hematology/Oncology 09/19/23 Jessica Eubanks PA-C [address] [facility] [place] [address] Physician Screen Maker Hematology/Oncology 09/19/23 Blu Tellez MD [address] [facility] [place] [address] Physician Hematology/Oncology 01/04/24 Eyeglass Frames Inspector Relationship Specialty Start Date End Date Keaton Hu [address] [place] [address] PCP - General Internal Medicine 07/10/23 Yanick Cesar [address] [place] [address] Referring Mri Technician 09/05/18 Pauline Fatima, VERNON Consulting Sales Manager 07/10/23 Little Bowens RN [address] [facility] [place] [address] Specialty Laborer Pipelines Hematology/Oncology 09/19/23 Jessica Eubanks PA-C [address] [facility] [place] [address] Physician Screen Maker Hematology/Oncology 09/19/23 Blu Tellez MD [address] [facility] [place] [address] Physician Hematology/Oncology 01/04/24 Eyeglass Frames Inspector Relationship Specialty Start Date End Date Keaton Hu [address] [place] [address] PCP - General Internal Medicine 07/10/23 Yanick Cesar [address] [place] [address] Referring Mri Technician 09/05/18 Pauline Fatima, SALES MANAGEMENT TRAINEE Consulting Sales Manager 07/10/23 Little Bowens, CIPRIANO [address] [facility] [place] [address] Specialty Laborer Pipelines Hematology/Oncology 09/19/23 Arturo Mcdonald MD [address] [facility] [place] [address] Physician Hematology/Oncology 09/19/23 01/03/24 Jessica Eubanks PA-C [address] [facility] [place] [address] Physician Screen Maker Hematology/Oncology 09/19/23 Eyeglass Frames Inspector Relationship Specialty Start Date End Date Keaton Hu [address] [place] [address] PCP - General Internal Medicine 07/10/23 Yanick Cesar [address] [place] [address] Referring Mri Technician 09/05/18 Pauline Fatima, SALES MANAGEMENT TRAINEE Consulting Sales Manager 07/10/23 Little Bowens, CIPRIANO [address] [facility] [place] [address] Specialty Laborer Pipelines Hematology/Oncology 09/19/23 Jessica Eubanks PA-C [address] [place] [address] [place] [address] Physician Screen Maker Hematology/Oncology 09/19/23 Blu Tellez MD [address] [place] [address] [place] [address] Physician Hematology/Oncology 01/04/24 Eyeglass Frames Inspector Relationship Specialty Start Date End Date Keaton Hu [address] [place] [address] PCP - General Internal Medicine 07/10/23 Yanick Cesar [address] [place] [address] Referring Mri Technician 09/05/18 Pauline Fatima LSW Consulting Sales Manager 07/10/23 Eyeglass Frames Inspector Relationship Specialty Start Date End Date Keaton Hu [address] [place] [address] PCP - General Internal Medicine 07/10/23 Yanick Cesar [address] [place] [address] Referring Mri Technician 09/05/18 Pauline Fatima LSW Consulting Sales Manager 07/10/23 Eyeglass Frames Inspector Relationship Specialty Start Date End Date Keaton Hu [address] [place] [address] PCP - General Internal Medicine 07/10/23 Ynaick Cesar [address] [place] [address] Referring Mri Technician 09/05/18 Pauline Fatima, SALES MANAGEMENT TRAINEE Consulting Sales Manager 07/10/23 Little Bowens, RN [address] [facility] [place] [address] Specialty Laborer Pipelines Hematology/Oncology 09/19/23 Jessica Eubanks PA-C [address] [place] [address] Physician Screen Maker Hematology/Oncology 09/19/23 Blu Tellez MD [address] [facility] [place] [address] Physician Hematology/Oncology 01/04/24 Eyeglass Frames Inspector Relationship Specialty Start Date End Date Keaton Hu [address] [place] [address] PCP - General Internal Medicine 07/10/23 Yanick Cesar [address] [place] [address] Referring Mri Technician 09/05/18 Pauline Fatima, SALES MANAGEMENT TRAINEE Consulting Sales Manager 07/10/23 Little Bowens RN [address] [facility] [place] [address] Specialty Laborer Pipelines Hematology/Oncology 09/19/23 Jessica Eubanks PA-C [address] [facility] [place] [address] Physician Screen Maker Hematology/Oncology 09/19/23 Blu Tellez MD [address] [facility] [place] [address] Physician Hematology/Oncology 01/04/24 Eyeglass Frames Inspector Relationship Specialty Start Date End Date Keaton Hu [address] [place] [address] PCP - General Internal Medicine 07/10/23 Yanick Cesar [address] [place] [address] Referring Mri Technician 09/05/18 Pauline Fatima, SALES MANAGEMENT TRAINEE Consulting Sales Manager 07/10/23 Little Bowens, RN [address] [place] [address] Specialty Laborer Pipelines Hematology/Oncology 09/19/23 Jessica Eubanks PA-C [address] [place] [address] Physician Screen Maker Hematology/Oncology 09/19/23 Blu Tellez MD [address] [place] [address] Physician Hematology/Oncology 01/04/24 Eyeglass Frames Inspector Relationship Specialty Start Date End Date Keaton Hu [address] [place] [address] PCP - General Internal Medicine 07/10/23 Yanick Cesar [address] [place] [address] Referring Mri Technician 09/05/18 Pauline Fatima, SALES MANAGEMENT TRAINEE Consulting Sales Manager 07/10/23 Little Bowens, RN [address] [place] [address] Specialty Laborer Pipelines Hematology/Oncology 09/19/23 Jessica Eubanks PA-C [address] [place] [address] Physician Screen Maker Hematology/Oncology 09/19/23 Blu Tellez MD [address] [place] [address] [place] [address] Physician Hematology/Oncology 01/04/24 Eyeglass Frames Inspector Relationship Specialty Start Date End Date Keaton Hu [address] [place] [address] PCP - General Internal Medicine 07/10/23 Yanick Cesar [address] [place] [address] Referring Mri Technician 09/05/18 Pauline Fatima, SALES MANAGEMENT TRAINEE Consulting Sales Manager 07/10/23 Eyeglass Frames Inspector Relationship Specialty Start Date End Date Keaton Hu [address] [place] [address] PCP - General Internal Medicine 07/10/23 Yanick Cesar [address] [place] [address] Referring Mri Technician 09/05/18 Pauline Fatima, SALES MANAGEMENT TRAINEE Consulting Sales Manager 07/10/23 Little Bowens, CIPRIANO [address] [facility] [place] [address] Specialty Laborer Pipelines Hematology/Oncology 09/19/23 Jessica Eubanks PANicholeC [address] [place] [address] [place] [address] Physician Screen Maker Hematology/Oncology 09/19/23 Blu Tellez MD [address] [place] [address] [place] [address] Physician Hematology/Oncology 01/04/24 Team Status: Inactive Member Role Status Dates Keaton Hu DO Primary Care Provider Active Sta rt: February 13, 2024 End: February 13, 2024 Darian Ba MD Attending Provider Active S tart: February 13, 2024 End: February 13, 2024 Eyeglass Frames Inspector Relationship Specialty Start Date End Date Keaton Hu [address] [place] [address] PCP - General Internal Medicine 07/10/23 Yanick Cesar [address] [place] [address] Referring Mri Technician 09/05/18 Pauline Fatima LSW Consulting Sales Manager 07/10/23 Little Bowens, CIPRIANO [address] [place] [address] [place] [address] Specialty Laborer Pipelines Hematology/Oncology 09/19/23 Jessica Eubanks, PA-C [address] [place] [address] [place] [address] Physician Screen Maker Hematology/Oncology 09/19/23 Blu Tellez MD [address] [place] [address] [place] [address] Physician Hematology/Oncology 01/04/24 Eyeglass Frames Inspector Relationship Specialty Start Date End Date Keaton Hu [address] [place] [address] PCP - General Internal Medicine 07/10/23 Yanick Cesar [address] [place] [address] Referring Mri Technician 09/05/18 Pauline Fatima, SALES MANAGEMENT TRAINEE Consulting Sales Manager 07/10/23 Little Bowens RN [address] [facility] [place] [address] Specialty Laborer Pipelines Hematology/Oncology 09/19/23 Jessica Eubanks PA-C [address] [place] [address] [place] [address] Physician Screen Maker Hematology/Oncology 09/19/23 Blu Tellez MD [address] [place] [address] [place] [address] Physician Hematology/Oncology 01/04/24 Team Status: Inactive Member Role Status Dates Keaton Hu DO Primary Care Provider Active Sta rt: March 29, 2024 End: March 29, 2024 EARLENE Espino RN LABOR EXPEDITER-C Attending Provider Active Start: March 29, 2024 End: March 29, 2024 Eyeglass Frames Inspector Relationship Specialty Start Date End Date Keaton uH [address] [place] [address] PCP - General Internal Medicine 07/10/23 Yanick Cesar [address] [place] [address] Referring Mri Technician 09/05/18 Pauline Fatima LSW Consulting Sales Manager 07/10/23 Little Bowens RN [address] [facility] [place] [address] Specialty Laborer Pipelines Hematology/Oncology 09/19/23 Jessica Eubanks PA-C [address] [place] [address] [place] [address] Physician Screen Maker Hematology/Oncology 09/19/23 Blu Tellez MD [address] [facility] [place] [address] Physician Hematology/Oncology 01/04/24 Eyeglass Frames Inspector Relationship Specialty Start Date End Date Keaton HuDO [address] [place] [address] PCP - General Internal Medicine 07/30/23 Eyeglass Frames Inspector Relationship Specialty Start Date End Date Jh Keaton DO Joy [address] [place] [address] PCP - General Internal Medicine 07/30/23 Eyeglass Frames Inspector Relationship Specialty Start Date End Date Keaton Huard [address] [place] [address] PCP - General Internal Medicine 07/10/23 Yanick Cesar [address] [place] [address] Referring Mri Technician 09/05/18 Pauline Fatima LSW Consulting Sales Manager 07/10/23 Little Bowens RN [address] [facility] [place] [address] Specialty Laborer Pipelines Hematology/Oncology 09/19/23 Jessica Eubanks PANicholeC [address] [facility] [place] [address] Physician Screen Maker Hematology/Oncology 09/19/23 Blu Tellez MD [address] [facility] [place] [address] Physician Hematology/Oncology 01/04/24 Eyeglass Frames Inspector Relationship Specialty Start Date End Date Keaton Hu [address] [place] [address] PCP - General Internal Medicine 07/10/23 Yanick Cesar [address] [place] [address] Referring Mri Technician 09/05/18 Pauline Fatima, SALES MANAGEMENT TRAINEE Consulting Sales Manager 07/10/23 Little Bowens, CIPRIANO [address] [facility] [place] [address] Specialty Laborer Pipelines Hematology/Oncology 09/19/23 Jessica Eubanks PA-C [address] [facility] [place] [address] Physician Screen Maker Hematology/Oncology 09/19/23 Blu Tellez MD [address] [facility] [place] [address] Physician Hematology/Oncology 01/04/24 Eyeglass Frames Inspector Relationship Specialty Start Date End Date Keaton Hu [address] [place] [address] PCP - General Internal Medicine 07/10/23 Yanick Cesar [address] [place] [place] [address] Referring Mri Technician 09/05/18 Pauline Fatima, SALES MANAGEMENT TRAINEE Consulting Sales Manager 07/10/23 Little Bowens, RN [address] [facility] [place] [address] Specialty Laborer Pipelines Hematology/Oncology 09/19/23 Jessica Eubanks PA-C [address] [place] [address] [place] [address] Physician Screen Maker Hematology/Oncology 09/19/23 Blu Tellez MD [address] [place] [address] [place] [address] Physician Hematology/Oncology 01/04/24 Eyeglass Frames Inspector Relationship Specialty Start Date End Date Keaton Hu [address] [place] [address] PCP - General Internal Medicine 07/10/23 Yanick Cesar [address] [place] [address] Referring Mri Technician 09/05/18 Pauline Fatima LSW Consulting Sales Manager 07/10/23 Little Bowens, RN [address] [facility] [place] [address] Specialty Laborer Pipelines Hematology/Oncology 09/19/23 Jessica Eubanks PA-C [address] [place] [address] [place] [address] Physician Screen Maker Hematology/Oncology 09/19/23 Blu Tellez MD [address] [place] [address] [place] [address] Physician Hematology/Oncology 01/04/24 Eyeglass Frames Inspector Relationship Specialty Start Date End Date Keaton Hu DO [address] [place] [address] PCP - General Internal Medicine 07/30/23 Eyeglass Frames Inspector Relationship Specialty Start Date End Date Keaton Hu [address] [place] [address] PCP - General Internal Medicine 07/10/23 Yanick Cesar [address] [place] [address] Referring Mri Technician 09/05/18 Pauline Fatima, SALES MANAGEMENT TRAINEE Consulting Sales Manager 07/10/23 Little Bowens, RN [address] [facility] [place] [address] Specialty Laborer Pipelines Hematology/Oncology 09/19/23 Jessica Eubanks PA-C [address] [place], [place] [address]RY [facility] [place] [address] Physician Screen Maker Hematology/Oncology 09/19/23 Blu Tellez MD [address] [facility] [place] [address] Physician Hematology/Oncology 01/04/24 Eyeglass Frames Inspector Relationship Specialty Start Date End Date MarissarobeKeaton denis [address] [place] [address] PCP - General Internal Medicine 07/10/23 Yanick Cesar [address] [place] [address] Referring Mri Technician 09/05/18 Pauline Fatima LSW Consulting Sales Manager 07/10/23 Little Bowens, RN [address] [facility] [place] [address] Specialty Laborer Pipelines Hematology/Oncology 09/19/23 Jessica Eubanks PA-C [address] [facility] [place] [address] Physician Screen Maker Hematology/Oncology 09/19/23 Blu Tellez MD [address] [place] [address] [place] [address] Physician Hematology/Oncology 01/04/24 Eyeglass Frames Inspector Relationship Specialty Start Date End Date Keaton Hu DO [address] [place] [address] PCP - General Internal Medicine 06/24/24 Eyeglass Frames Inspector Relationship Specialty Start Date End Date Keaton Hu DO [address] [place] [address] PCP - General Internal Medicine 01/17/23 Eyeglass Frames Inspector Relationship Specialty Start Date End Date Keaotn Hu DO [address] [place] [address] PCP - General Internal Medicine 07/30/23 Eyeglass Frames Inspector Relationship Specialty Start Date End Date Keaton Hu DO [address] [place] [address] PCP - General Internal Medicine 07/30/23 Eyeglass Frames Inspector Relationship Specialty Start Date End Date Keaton Hu DO [address] [place] [address] PCP - General Internal Medicine 07/30/23 Eyeglass Frames Inspector Relationship Specialty Start Date End Date Keaton Hu DO [address] [place] [address] PCP - General Internal Medicine 05/21/23 Eyeglass Frames Inspector Relationship Specialty Start Date End Date Keaton Hu DO [address] [place] [address] PCP - General Internal Medicine 05/21/23 Eyeglass Frames Inspector Relationship Specialty Start Date End Date Keaton Hu DO [address] [place] [address] PCP - General Internal Medicine 05/21/23 Eyeglass Frames Inspector Relationship Specialty Start Date End Date Keaton Hu DO [address] [place] [address] PCP - General Internal Medicine 05/21/23 Eyeglass Frames Inspector Relationship Specialty Start Date End Date Keaton Hu DO [address] [place] [address] PCP - General Internal Medicine 07/30/23 Eyeglass Frames Inspector Relationship Specialty Start Date End Date Keaton Hu DO [address] [place] [address] PCP - General Internal Medicine 05/21/23 Eyeglass Frames Inspector Relationship Specialty Start Date End Date Keaton Hu DO [address] [place] [address] PCP - General Internal Medicine 05/21/23 Eyeglass Frames Inspector Relationship Specialty Start Date End Date Keaton Hu DO [address] [place] [address] PCP - General Internal Medicine 05/21/23 Eyeglass Frames Inspector Relationship Specialty Start Date End Date Keaton Hu DO [address] [place] [address] PCP - General Internal Medicine 05/21/23 Eyeglass Frames Inspector Relationship Specialty Start Date End Date Keaton Hu DO [address] [place] [address] PCP - General Internal Medicine 05/21/23 Eyeglass Frames Inspector Relationship Specialty Start Date End Date Keaton Hu DO [address] [place] [address] PCP - General Internal Medicine 05/21/23 Eyeglass Frames Inspector Relationship Specialty Start Date End Date Keaton Hu DO [address] [place] [address] PCP - General Internal Medicine 05/21/23 Eyeglass Frames Inspector Relationship Specialty Start Date End Date Keaton Hu DO [address] [place] [address] PCP - General Internal Medicine 05/21/23 Eyeglass Frames Inspector Relationship Specialty Start Date End Date Keaton Hu DO [address] [place] [address] PCP - General Internal Medicine 05/21/23 Eyeglass Frames Inspector Relationship Specialty Start Date End Date Keaton Hu DO [address] [place] [address] PCP - General Internal Medicine 07/30/23 Eyeglass Frames Inspector Relationship Specialty Start Date End Date Keaton Hu DO [address] [place] [address] PCP - General Internal Medicine 07/30/23 Eyeglass Frames Inspector Relationship Specialty Start Date End Date Keaton Hu DO [address] [place] [address] PCP - General Internal Medicine 07/30/23 Eyeglass Frames Inspector Relationship Specialty Start Date End Date Keaton Hu DO [address] [place] [address] PCP - General Internal Medicine 07/30/23 Eyeglass Frames Inspector Relationship Specialty Start Date End Date Keaton Hu DO [address] [place] [address] PCP - General Internal Medicine 07/30/23 Eyeglass Frames Inspector Relationship Specialty Start Date End Date Keaton Hu DO [address] [place] [address] PCP - General Internal Medicine 07/30/23 Eyeglass Frames Inspector Relationship Specialty Start Date End Date Keaton Hu DO [address] [place] [address] PCP - General Internal Medicine 07/30/23 Eyeglass Frames Inspector Relationship Specialty Start Date End Date Keaton Hu DO [address] [place] [address] PCP - General Internal Medicine 07/30/23 Eyeglass Frames Inspector Relationship Specialty Start Date End Date Keaton Hu DO [address] [place] [address] PCP - General Internal Medicine 07/30/23 Eyeglass Frames Inspector Relationship Specialty Start Date End Date JhKeaton Joy [address] [place] [address] PCP - General Internal Medicine 07/30/23 Eyeglass Frames Inspector Relationship Specialty Start Date End Date Luisyunior Keaton Conteh [address] [place] [address] PCP - General Internal Medicine 07/10/23 Yanick Cesar [address] [place] [address] Referring Mri Technician 09/05/18 Pauline Fatima LSW Consulting Sales Manager 07/10/23 Little Bowens RN [address] [facility] [place] [address] Specialty Laborer Pipelines Hematology/Oncology 09/19/23 Jessica Eubanks, PA-C [address] [place] [address] [place] [address] Physician Screen Maker Hematology/Oncology 09/19/23 Blu Tellez MD [address] [facility] [place] [place] [address] Physician Hematology/Oncology 01/04/24 Eyeglass Frames Inspector Relationship Specialty Start Date End Date Keaton Hu [address] [place] [address] PCP - General Internal Medicine 07/10/23 Yanick Cesar [address] [place] [address] Referring Mri Technician 09/05/18 Pauline Fatima LSW Consulting Sales Manager 07/10/23 Little Bowens, RN [address] [facility] [place] [address] Specialty Laborer Pipelines Hematology/Oncology 09/19/23 Jessica Eubanks PA-C [address] [facility] [place] [address] Physician Screen Maker Hematology/Oncology 09/19/23 Blu Tellez MD [address] [place] [address] [place] [address] Physician Hematology/Oncology 01/04/24 Eyeglass Frames Inspector Relationship Specialty Start Date End Date Keaton Hu Elder [address] [place] [address] PCP - General Internal Medicine 07/10/23 Yanick Cesar [address] [place] [address] Referring Mri Technician 09/05/18 Pauline Fatima LSW Consulting Sales Manager 07/10/23 Little Bowens RN [address] [facility] [place] [address] Specialty Laborer Pipelines Hematology/Oncology 09/19/23 Jessica Eubanks PA-C [address] [facility] [place] [address] Physician Screen Maker Hematology/Oncology 09/19/23 Blu Tellez MD [address] [facility] [place] [address] Physician Hematology/Oncology 01/04/24 Eyeglass Frames Inspector Relationship Specialty Start Date End Date Jh Keaton Whiteard [address] [place] [address] PCP - General Internal Medicine 07/10/23 Yanick Cesar [address] [place] [address] Referring Mri Technician 09/05/18 Pauline Fatima, SALES MANAGEMENT TRAINEE Consulting Sales Manager 07/10/23 Little Bowens, CIPRIANO [address] [facility] [place] [address] Specialty Laborer Pipelines Hematology/Oncology 09/19/23 Jessica Eubanks PA-C [address] [facility] [place] [address] Physician Screen Maker Hematology/Oncology 09/19/23 Blu Tellez MD [address] [facility] [place] [address] Physician Hematology/Oncology 01/04/24 Eyeglass Frames Inspector Relationship Specialty Start Date End Date Jh Keaton Elder [address] [place] [address] PCP - General Internal Medicine 07/10/23 Yanick Cesar [address] [place] [address] Referring Mri Technician 09/05/18 Pauline Fatima, SALES MANAGEMENT TRAINEE Consulting Sales Manager 07/10/23 Little Bowens, CIPRIANO [address] [facility] [place] [address] Specialty Laborer Pipelines Hematology/Oncology 09/19/23 Jessica Eubanks PA-C [address] [facility] [place] [address] Physician Screen Maker Hematology/Oncology 09/19/23 Blu Tellez MD [address] [facility] [facility] [place] [address] Physician Hematology/Oncology 01/04/24 Eyeglass Frames Inspector Relationship Specialty Start Date End Date Keaton [place] [address] [place] [address] PCP - General Internal Medicine 07/10/23 Yanick Cesar [address] [place] [address] Referring Mri Technician 09/05/18 Pauline Fatima LSW Consulting Sales Manager 07/10/23 Little Bowens, RN [address] [facility] [place] [address] Specialty Laborer Pipelines Hematology/Oncology 09/19/23 Jessica Eubanks PA-C [address] [facility] [place] [address] Physician Screen Maker Hematology/Oncology 09/19/23 Blu Tellez MD [address] [facility] [place] [address] Physician Hematology/Oncology 01/04/24 Eyeglass Frames Inspector Relationship Specialty Start Date End Date Keaton Hu [address] [place] [address] PCP - General Internal Medicine 07/10/23 Yanick Cesar [address] [place] [address] Referring Mri Technician 09/05/18 Pauline Fatima, VERNON Consulting Sales Manager 07/10/23 [place], RN [address] [facility] [place] [address] Specialty Laborer Pipelines Hematology/Oncology 09/19/23 Jessica Eubanks PA-C [address] [place] [address] [place] [address] Physician Screen Maker Hematology/Oncology 09/19/23 Blu Tellez MD [address] [place] [address] [place] [address] Physician Hematology/Oncology 01/04/24 Eyeglass Frames Inspector Relationship Specialty Start Date End Date Keaton Hu [address] [place] [address] PCP - General Internal Medicine 07/10/23 Yanick Cesar [address] [place] [address] Referring Mri Technician 09/05/18 Pauline Fatima SALES MANAGEMENT TRAINEE Consulting Sales Manager 07/10/23 Little Bowens, RN [address] [facility] [place] [address] Specialty Laborer Pipelines Hematology/Oncology 09/19/23 Jessica Eubanks PA-C [address] [place] [address] [place] [address] Physician Screen Maker Hematology/Oncology 09/19/23 Blu Tellez MD [address] [place] [address] [place] [address] Physician Hematology/Oncology 01/04/24 Eyeglass Frames Inspector Relationship Specialty Start Date End Date Keaton Hu DO [address] [place] [address] PCP - General Internal Medicine 06/24/24 Eyeglass Frames Inspector Relationship Specialty Start Date End Date Keaton Huard [address] [place] [address] PCP - General Internal Medicine 07/10/23 Yanick Cesar [address] [place] [address] Referring Mri Technician 09/05/18 Pauline Fatima LSW Consulting Sales Manager 07/10/23 Little oBwens, CIPRIANO [address] [place] [address] [place] [address] Specialty Laborer Pipelines Hematology/Oncology 09/19/23 Jessica Eubanks, PA-C [address] [place] [address] [place] [address] Physician Screen Maker Hematology/Oncology 09/19/23 Blu Tellez MD [address] [place] [address] [place] [address] Physician Hematology/Oncology 01/04/24 Eyeglass Frames Inspector Relationship Specialty Start Date End Date Keaton Hu DO [address] [place] [address] PCP - General Internal Medicine 06/24/24 Eyeglass Frames Inspector Relationship Specialty Start Date End Date Keaton Hu DO [address] [facility] [address] PCP - General Internal Medicine 06/24/24 Eyeglass Frames Inspector Relationship Specialty Start Date End Date Keaton Hu [address] [place] [address] PCP - General Internal Medicine 06/24/24 Eyeglass Frames Inspector Relationship Specialty Start Date End Date Keaton HuDO [address] [place] [address] PCP - General Internal Medicine 06/24/24 Eyeglass Frames Inspector Relationship Specialty Start Date End Date Keaton Hu [address] [place] [address] PCP - General Internal Medicine 06/24/24 Eyeglass Frames Inspector Relationship Specialty Start Date End Date Keaton Hu [address] [place] [address] PCP - General Internal Medicine 07/10/23 Yanick Cesar [address] [place] [address] Referring Mri Technician 09/05/18 Pauline Fatima LSW Consulting Sales Manager 07/10/23 [place], RN [address] [facility] [place] [address] Specialty Laborer Pipelines Hematology/Oncology 09/19/23 Jessica Eubanks PANicholeC [address] [place], [place] [address] [address] Physician Screen Maker Hematology/Oncology 09/19/23 Blu Tellez MD [address] [place] [address] [place] [address] Physician Hematology/Oncology 01/04/24 Eyeglass Frames Inspector Relationship Specialty Start Date End Date Keaton Hu [address] [place] [address] PCP - General Internal Medicine 07/10/23 Yanick Cesar [address] [place] [address] Referring Mri Technician 09/05/18 Pauline Fatima LSW Consulting Sales Manager 07/10/23 [place], RN [address] [place] [address] [place] [address] Specialty Laborer Pipelines Hematology/Oncology 09/19/23 Jessica Eubanks PA-C [address] [place] [address] [place] [address] Physician Screen Maker Hematology/Oncology 09/19/23 Blu Tellez MD [address] [place] [address] [place] [address] Physician Hematology/Oncology 01/04/24 Eyeglass Frames Inspector Relationship Specialty Start Date End Date Keaton Hu DO [address] [facility] [place] [address] PCP - General Internal Medicine 06/24/24 Goals (unrecognized section and content) Goals may be documented in a n alternate sectionGoals may be documented in an alternate sectionNo InformationGoals may be documented in an alternate section REASON FOR VISIT (unrecogniz ed section and content) Reason Comments Consult Reason Comments Adenocarcinoma of rectum New patient con sult Reason Comments Consult Rectal Cancer Reason Comments Appointment reminder Appointment reminde r call--spoke with patient--gave directions to the office. Reason Comments Results MRI Reason Comments Patient Education Reason Comments Rectal Cancer Follow up Reason Comments Future Appointment Reason Comments Medication Update capecitabine Reason Comments Care Coordination Antiemetics for leti tment Reason Comments Rectal Cancer Reason Comments First Time Treatment Education Reason Comments Care Coordination Opened In Error Reason Comments Care Coordination Clinical update Reason Comments Care Coordination survivorship Reason Onset Date Comments Simulation Request Form 09/18/2023 Reason Comments Future Appointment Patient Update Dental Emergency Reason Comments Care Coordination Appointment update Reason Comments Tooth Extraction Reason Comments Dental Clearance - Chemotherapy Specialty Diagnoses / Procedures Referred By Contac t Referred To Contact Dentistry / DENTISTRY Diagnoses Rectal adenocarcinoma (HCC) Procedures CONSULT TO DENTISTRY OFFICE/[facility] 60 MINUTES Patricia [place] MD [address] [place] [address] [place] [address] Dmfp [place] [address] [place] [address] Referral ID Status Reason Start Date Expiration Date Visits Re quested Visits Authorized [id number] Closed 09/27/2023 05/20/2024 1 1 Reason Comments Patient Update Appointment Reason Comments Critical Results Reason Comments IV hydration Reason Comments Care Coordination IV site soreness Reason Comments Radiotherapy On-treatment Visit Reason Comments Treatment Planning Reason Comments Care Coordination C1D1 treatment follo w up call Reason Comments Rectal Cancer Treatment visit Reason Comments Care Coordination Toxicity check Reason Comments Rectal Cancer 2 week follow up Reason Comments Rectal Cancer OTV Specialty Diagnoses / Procedures Referred By Contac t Referred To Contact Radiation Oncology / RADIATION ONCOLOGY Diagnoses Malignant neoplasm of rectum NEW START PRONE RECTUM - WOULD LIKE EARLY AFTERNOON [facility] Activity: W-[facility] \T\ [place] IMAGING 3D 28 FX Procedures RADIATION TREATMENT DELIVERY 1 MEV >= COMPLEX RADIATION TREATMENT DELIVERY 3D 28 FX Patricia [place] MD [facility] [place] [address] Patricia [place] MD [facility] [place] [address] Referral ID Status Reason Start Date Expiration Date Visits Requested Visits Authorized [id number] Authorized Patient Cleared - Admin/Chairm an/Director advise to proceed or did not respond 10/01/2023 12/30/2023 28 28 Reason Comments Patient Update Reason Comments Care Coordination CT resutls Reason Comments Appointment instructions Reason Comments Care Coordination Appointments, MRI re sult Specialty Diagnoses / Procedures Referred By Contac t Referred To Contact MR IMAGING Diagnoses Malignant neoplasm of rectum (HCC) Procedures MRI RECTUM WO/W IVCON MRI PELVIS W/O & W/CONTRAST MATERIAL Jessica Eubanks PA-C [address] [place] [address] [place] [address] Mr Imaging [facility] Referral ID Status Reason Start Date Expiration Date V isits Requested Visits Authorized [id number] Closed Auto-Generate d Referral 11/21/2023 12/20/2024 [address] Specialty Diagnoses / Procedures Referred By Contac t Referred To Contact CT IMAGING Diagnoses Malignant neoplasm of rectum (HCC) Rectal cancer (HCC) Lung nodules Procedures CT CHEST W IVCON DIAGNOSTIC COMPUTED TOMOGRAPHY THORAX W/CONTRAST Jessica Eubanks PA-C [address] [place] [address] [place] [address] Ct [facility] Referral ID Status Reason Start Date Expiration Date V isits Requested Visits Authorized [id number] Closed Auto-Generate d Referral 11/21/2023 12/20/2024 1 1 Reason Comments Lab Orders Specialty Diagnoses / Procedures Referred By Contac t Referred To Contact Radiation Oncology / RADIATION ONCOLOGY Diagnoses Malignant neoplasm of rectum Sim treating pelvis no contrast eng IMRT 28 FX plus sim Procedures INTENSITY MODULATED RADIATION TX DLVR COMPLEX SIMULATION MAC IMRT 28 FX plus sim Patricia [place] MD [address] [place] [address] [place] [address] Patricia Dee MD [address] [place] [address] [place] [address] Referral ID Status Reason Start Date Expiration Date Visits Re quested Visits Authorized [id number] Closed 09/13/2023 12/12/2023 29 29 Specialty Diagnoses / Procedures Referred By Contac t Referred To Contact MR IMAGING Diagnoses Rectal cancer (HCC) Procedures MRI RECTUM WO/W IVCON MRI PELVIS W/O & W/CONTRAST MATERIAL Arturo Mcdonald MD [address] [place] [address] [place] [address] Referral ID Status Reason Start Date Expiration Date V isits Requested Visits Authorized [id number] Closed Auto-Generate d Referral 07/10/2023 08/08/2024 1 1 Reason Comments Care Coordination Chemo ed Specialty Diagnoses / Procedures Referred By Contac t Referred To Contact Diagnoses Rectal cancer (HCC) Procedures PALONOSETRON HCL OXALIPLATIN Blu Tellez MD [address] [place] [address] [place] [address] Jaiden Treat [address] [place] [address] Referral ID Status Reason Start Date Expiration Date V isits Requested Visits Authorized [id number] Authorized 01/22/2024 01/21/2025 [address] Specialty Diagnoses / Procedures Referred By Contac t Referred To Contact CT IMAGING Diagnoses Rectal cancer (HCC) Malignant neoplasm of rectum (HCC) Procedures CT ABD/PEL W IVCON CT ABD & PELVIS W/CONTRAST Arturo Mcdonald MD [address] [place] [address] [address] [address] [facility] Referral ID Status Reason Start Date Expiration Date V isits Requested Visits Authorized [id number] Closed Auto-Generate d Referral 07/10/2023 08/08/2024 1 1 Reason Onset Date Comments Refill Request 02/06/2024 Reason Comments Care Coordination Xeloda script Reason Comments Appointment Rescheduled Reason Onset Date Comments Refill Request 03/04/2024 Reason Comments Care Coordination Not feeling well Reason Comments No Show Reason Comments Med Refill Reason Comments Diabetes Reason Comments Rectal Cancer Reason Comments Radiology [place] Specialty Diagnoses / Procedures Referred By Contac t Referred To Contact CT IMAGING Diagnoses Rectal cancer (HCC) Wound cellulitis Type 2 diabetes mellitus with other specified complication, with long-term current use of insulin (HCC) Procedures CT ABD/PEL W IVCON CT ABD & PELVIS W/CONTRAST Jessica Eubanks, PANicholeC [address] [place] [address] [place] [address] [place] [address] Referral ID Status Reason Start Date Expiration Date V isits Requested Visits Authorized [id number] Closed Auto-Generate d Referral 06/04/2024 07/04/2025 1 1 Reason Comments Care Coordination CT results Reason Onset Date Comments Care Navigation 05/29/2023 Reason Comments Care Coordination MRI results Reason Comments Vaginitis Specialty Diagnoses / Procedures Referred By Contac t Referred To Contact Obstetrics and Gynecology Diagnoses Atrophic vaginitis Nerissa Rome, REEL SLITTER-COMMUNICATIONS EQUIPMENT OPERATOR [address] [place] [address] [facility] [address] [place] [address] Referral ID Status Reason Start Date Expiration Date Visits Requested Visits Authorized [id number] Pending Review Specialty Services Required 05/08/2024 1 1 Reason Comments ADENOCARCINOMA OF RECTUM ADENOCARCINOMA OF RECTUM, COLONOSCOPY WITH DR. HU 05/25/23 Specialty Diagnoses / Procedures Referred By Contac t Referred To Contact General Surgery Diagnoses Adenocarcinoma of rectum ([facility]) Keaton Hu, DO [address] [place] [address] Chasity Diez, DO [address] [place] [address] Referral ID Status Reason Start Date Expiration Date V isits Requested Visits Authorized [id number] Closed Specialty Services Required 05/31/2023 05/30/2024 1 1 Reason Onset Date Comments Med Refill 11/08/2023 Reason Comments Post-op Post op colonoscopy performed 06/26/23 at PM Reason Comments Biopsy Reason Comments Follow-up Reason Comments Follow-up Hospital discharge Reason Onset Date Comments Care Navigation 08/29/2023 Reason Onset Date Comments Med Refill 04/07/2024 Reason Onset Date Comments Med Refill 03/27/2024 Reason Comments Appointment Follow up with Dr Ilir mueller needed Reason Comments Appointment Appointment needed f or follow up rectal cancer Reason Comments Follow Up Rectal Cancer Reason Comments Preparations For Surgery Reason Comments Preparations For Surgery Laborer Pipelines - Other Reason Comments Care Coordination Follow up appointmen t in 2 months Reason Comments Rectal Cancer Reason Comments maw Reason Comments medication refills Reason Onset Date Comments Med Refill 11/07/2024 Reason Comments Rectal Cancer Follow up Reason Onset Date Comments Med Refill 12/02/2024 Source Comments (unrecognize d section and content) In the event this informatio n is protected by the Federal Confidentiality of Alcohol and Drug Abuse Patient Records regulations: The Federal rules restrict any use of the information to criminally investigate or prosecute any alcohol or drug abuse patient.[facility] Center[facility] the event this information is protected by the Federal Confidentiality of Alcohol and Drug Abuse Patient Records regulations: The Federal rules restrict any use of the information to criminally investigate or prosecute any alcohol or drug abuse patient.[facility] CenterIn the event this information is protected by the Federal Confidentiality of Alcohol and Drug Abuse Patient Records regulations: The Federal rules restrict any use of the information to criminally investigate or prosecute any alcohol or drug abuse patient.[facility] CenterIn the event this information is protected by the Federal Confidentiality of Alcohol and Drug Abuse Patient Records regulations: The Federal rules restrict any use of the information to criminally investigate or prosecute any alcohol or drug abuse patient.[facility] CenterIn the event this information is protected by the Federal Confidentiality of Alcohol and Drug Abuse Patient Records regulations: The Federal rules restrict any use of the information to criminally investigate or prosecute any alcohol or drug abuse patient.[facility] CenterIn the event this information is protected by the Federal Confidentiality of Alcohol and Drug Abuse Patient Records regulations: The Federal rules restrict any use of the information to criminally investigate or prosecute any alcohol or drug abuse patient.[facility] CenterIn the event this information is protected by the Federal Confidentiality of Alcohol and Drug Abuse Patient Records regulations: The Federal rules restrict any use of the information to criminally investigate or prosecute any alcohol or drug abuse patient.[facility] CenterIn the event this information is protected by the Federal Confidentiality of Alcohol and Drug Abuse Patient Records regulations: The Federal rules restrict any use of the information to criminally investigate or prosecute any alcohol or drug abuse patient.[facility] CenterIn the event this information is protected by the Federal Confidentiality of Alcohol and Drug Abuse Patient Records regulations: The Federal rules restrict any use of the information to criminally investigate or prosecute any alcohol or drug abuse patient.[facility] CenterIn the event this information is protected by the Federal Confidentiality of Alcohol and Drug Abuse Patient Records regulations: The Federal rules restrict any use of the information to criminally investigate or prosecute any alcohol or drug abuse patient.[facility] CenterIn the event this information is protected by the Federal Confidentiality of Alcohol and Drug Abuse Patient Records regulations: The Federal rules restrict any use of the information to criminally investigate or prosecute any alcohol or drug abuse patient.[facility] CenterIn the event this information is protected by the Federal Confidentiality of Alcohol and Drug Abuse Patient Records regulations: The Federal rules restrict any use of the information to criminally investigate or prosecute any alcohol or drug abuse patient.[facility] CenterIn the event this information is protected by the Federal Confidentiality of Alcohol and Drug Abuse Patient Records regulations: The Federal rules restrict any use of the information to criminally investigate or prosecute any alcohol or drug abuse patient.[facility] CenterIn the event this information is protected by the Federal Confidentiality of Alcohol and Drug Abuse Patient Records regulations: The Federal rules restrict any use of the information to criminally investigate or prosecute any alcohol or drug abuse patient.[facility] CenterIn the event this information is protected by the Federal Confidentiality of Alcohol and Drug Abuse Patient Records regulations: The Federal rules restrict any use of the information to criminally investigate or prosecute any alcohol or drug abuse patient.[facility] CenterIn the event this information is protected by the Federal Confidentiality of Alcohol and Drug Abuse Patient Records regulations: The Federal rules restrict any use of the information to criminally investigate or prosecute any alcohol or drug abuse patient.[facility] CenterIn the event this information is protected by the Federal Confidentiality of Alcohol and Drug Abuse Patient Records regulations: The Federal rules restrict any use of the information to criminally investigate or prosecute any alcohol or drug abuse patient.[facility] CenterIn the event this information is protected by the Federal Confidentiality of Alcohol and Drug Abuse Patient Records regulations: The Federal rules restrict any use of the information to criminally investigate or prosecute any alcohol or drug abuse patient.[facility] CenterIn the event this information is protected by the Federal Confidentiality of Alcohol and Drug Abuse Patient Records regulations: The Federal rules restrict any use of the information to criminally investigate or prosecute any alcohol or drug abuse patient.[facility] CenterIn the event this information is protected by the Federal Confidentiality of Alcohol and Drug Abuse Patient Records regulations: The Federal rules restrict any use of the information to criminally investigate or prosecute any alcohol or drug abuse patient.[facility] CenterIn the event this information is protected by the Federal Confidentiality of Alcohol and Drug Abuse Patient Records regulations: The Federal rules restrict any use of the information to criminally investigate or prosecute any alcohol or drug abuse patient.[facility] CenterIn the event this information is protected by the Federal Confidentiality of Alcohol and Drug Abuse Patient Records regulations: The Federal rules restrict any use of the information to criminally investigate or prosecute any alcohol or drug abuse patient.[facility] CenterIn the event this information is protected by the Federal Confidentiality of Alcohol and Drug Abuse Patient Records regulations: The Federal rules restrict any use of the information to criminally investigate or prosecute any alcohol or drug abuse patient.[facility] CenterIn the event this information is protected by the Federal Confidentiality of Alcohol and Drug Abuse Patient Records regulations: The Federal rules restrict any use of the information to criminally investigate or prosecute any alcohol or drug abuse patient.[facility] CenterIn the event this information is protected by the Federal Confidentiality of Alcohol and Drug Abuse Patient Records regulations: The Federal rules restrict any use of the information to criminally investigate or prosecute any alcohol or drug abuse patient.[facility] CenterIn the event this information is protected by the Federal Confidentiality of Alcohol and Drug Abuse Patient Records regulations: The Federal rules restrict any use of the information to criminally investigate or prosecute any alcohol or drug abuse patient.[facility] CenterIn the event this information is protected by the Federal Confidentiality of Alcohol and Drug Abuse Patient Records regulations: The Federal rules restrict any use of the information to criminally investigate or prosecute any alcohol or drug abuse patient.[facility] CenterIn the event this information is protected by the Federal Confidentiality of Alcohol and Drug Abuse Patient Records regulations: The Federal rules restrict any use of the information to criminally investigate or prosecute any alcohol or drug abuse patient.[facility] CenterIn the event this information is protected by the Federal Confidentiality of Alcohol and Drug Abuse Patient Records regulations: The Federal rules restrict any use of the information to criminally investigate or prosecute any alcohol or drug abuse patient.[facility] CenterIn the event this information is protected by the Federal Confidentiality of Alcohol and Drug Abuse Patient Records regulations: The Federal rules restrict any use of the information to criminally investigate or prosecute any alcohol or drug abuse patient.[facility] CenterIn the event this information is protected by the Federal Confidentiality of Alcohol and Drug Abuse Patient Records regulations: The Federal rules restrict any use of the information to criminally investigate or prosecute any alcohol or drug abuse patient.[facility] CenterIn the event this information is protected by the Federal Confidentiality of Alcohol and Drug Abuse Patient Records regulations: The Federal rules restrict any use of the information to criminally investigate or prosecute any alcohol or drug abuse patient.[facility] CenterIn the event this information is protected by the Federal Confidentiality of Alcohol and Drug Abuse Patient Records regulations: The Federal rules restrict any use of the information to criminally investigate or prosecute any alcohol or drug abuse patient.[facility] CenterIn the event this information is protected by the Federal Confidentiality of Alcohol and Drug Abuse Patient Records regulations: The Federal rules restrict any use of the information to criminally investigate or prosecute any alcohol or drug abuse patient.[facility] CenterIn the event this information is protected by the Federal Confidentiality of Alcohol and Drug Abuse Patient Records regulations: The Federal rules restrict any use of the information to criminally investigate or prosecute any alcohol or drug abuse patient.[facility] CenterIn the event this information is protected by the Federal Confidentiality of Alcohol and Drug Abuse Patient Records regulations: The Federal rules restrict any use of the information to criminally investigate or prosecute any alcohol or drug abuse patient.[facility] CenterIn the event this information is protected by the Federal Confidentiality of Alcohol and Drug Abuse Patient Records regulations: The Federal rules restrict any use of the information to criminally investigate or prosecute any alcohol or drug abuse patient.[facility] CenterIn the event this information is protected by the Federal Confidentiality of Alcohol and Drug Abuse Patient Records regulations: The Federal rules restrict any use of the information to criminally investigate or prosecute any alcohol or drug abuse patient.[facility] CenterIn the event this information is protected by the Federal Confidentiality of Alcohol and Drug Abuse Patient Records regulations: The Federal rules restrict any use of the information to criminally investigate or prosecute any alcohol or drug abuse patient.[facility] CenterIn the event this information is protected by the Federal Confidentiality of Alcohol and Drug Abuse Patient Records regulations: The Federal rules restrict any use of the information to criminally investigate or prosecute any alcohol or drug abuse patient.[facility] CenterIn the event this information is protected by the Federal Confidentiality of Alcohol and Drug Abuse Patient Records regulations: The Federal rules restrict any use of the information to criminally investigate or prosecute any alcohol or drug abuse patient.[facility] CenterIn the event this information is protected by the Federal Confidentiality of Alcohol and Drug Abuse Patient Records regulations: The Federal rules restrict any use of the information to criminally investigate or prosecute any alcohol or drug abuse patient.[facility] CenterIn the event this information is protected by the Federal Confidentiality of Alcohol and Drug Abuse Patient Records regulations: The Federal rules restrict any use of the information to criminally investigate or prosecute any alcohol or drug abuse patient.[facility] CenterIn the event this information is protected by the Federal Confidentiality of Alcohol and Drug Abuse Patient Records regulations: The Federal rules restrict any use of the information to criminally investigate or prosecute any alcohol or drug abuse patient.[facility] CenterIn the event this information is protected by the Federal Confidentiality of Alcohol and Drug Abuse Patient Records regulations: The Federal rules restrict any use of the information to criminally investigate or prosecute any alcohol or drug abuse patient.[facility] CenterIn the event this information is protected by the Federal Confidentiality of Alcohol and Drug Abuse Patient Records regulations: The Federal rules restrict any use of the information to criminally investigate or prosecute any alcohol or drug abuse patient.[facility] CenterIn the event this information is protected by the Federal Confidentiality of Alcohol and Drug Abuse Patient Records regulations: The Federal rules restrict any use of the information to criminally investigate or prosecute any alcohol or drug abuse patient.[facility] CenterIn the event this information is protected by the Federal Confidentiality of Alcohol and Drug Abuse Patient Records regulations: The Federal rules restrict any use of the information to criminally investigate or prosecute any alcohol or drug abuse patient.[facility] CenterIn the event this information is protected by the Federal Confidentiality of Alcohol and Drug Abuse Patient Records regulations: The Federal rules restrict any use of the information to criminally investigate or prosecute any alcohol or drug abuse patient.[facility] CenterIn the event this information is protected by the Federal Confidentiality of Alcohol and Drug Abuse Patient Records regulations: The Federal rules restrict any use of the information to criminally investigate or prosecute any alcohol or drug abuse patient.[facility] CenterIn the event this information is protected by the Federal Confidentiality of Alcohol and Drug Abuse Patient Records regulations: The Federal rules restrict any use of the information to criminally investigate or prosecute any alcohol or drug abuse patient.[facility] CenterIn the event this information is protected by the Federal Confidentiality of Alcohol and Drug Abuse Patient Records regulations: The Federal rules restrict any use of the information to criminally investigate or prosecute any alcohol or drug abuse patient.[facility] CenterIn the event this information is protected by the Federal Confidentiality of Alcohol and Drug Abuse Patient Records regulations: The Federal rules restrict any use of the information to criminally investigate or prosecute any alcohol or drug abuse patient.[facility] CenterIn the event this information is protected by the Federal Confidentiality of Alcohol and Drug Abuse Patient Records regulations: The Federal rules restrict any use of the information to criminally investigate or prosecute any alcohol or drug abuse patient.[facility] CenterIn the event this information is protected by the Federal Confidentiality of Alcohol and Drug Abuse Patient Records regulations: The Federal rules restrict any use of the information to criminally investigate or prosecute any alcohol or drug abuse patient.[facility] CenterIn the event this information is protected by the Federal Confidentiality of Alcohol and Drug Abuse Patient Records regulations: The Federal rules restrict any use of the information to criminally investigate or prosecute any alcohol or drug abuse patient.[facility] CenterIn the event this information is protected by the Federal Confidentiality of Alcohol and Drug Abuse Patient Records regulations: The Federal rules restrict any use of the information to criminally investigate or prosecute any alcohol or drug abuse patient.[facility] CenterIn the event this information is protected by the Federal Confidentiality of Alcohol and Drug Abuse Patient Records regulations: The Federal rules restrict any use of the information to criminally investigate or prosecute any alcohol or drug abuse patient.[facility] CenterIn the event this information is protected by the Federal Confidentiality of Alcohol and Drug Abuse Patient Records regulations: The Federal rules restrict any use of the information to criminally investigate or prosecute any alcohol or drug abuse patient.[facility] CenterIn the event this information is protected by the Federal Confidentiality of Alcohol and Drug Abuse Patient Records regulations: The Federal rules restrict any use of the information to criminally investigate or prosecute any alcohol or drug abuse patient.[facility] CenterIn the event this information is protected by the Federal Confidentiality of Alcohol and Drug Abuse Patient Records regulations: The Federal rules restrict any use of the information to criminally investigate or prosecute any alcohol or drug abuse patient.[facility] CenterIn the event this information is protected by the Federal Confidentiality of Alcohol and Drug Abuse Patient Records regulations: The Federal rules restrict any use of the information to criminally investigate or prosecute any alcohol or drug abuse patient.[facility] CenterIn the event this information is protected by the Federal Confidentiality of Alcohol and Drug Abuse Patient Records regulations: The Federal rules restrict any use of the information to criminally investigate or prosecute any alcohol or drug abuse patient.[facility] CenterIn the event this information is protected by the Federal Confidentiality of Alcohol and Drug Abuse Patient Records regulations: The Federal rules restrict any use of the information to criminally investigate or prosecute any alcohol or drug abuse patient.[facility] CenterIn the event this information is protected by the Federal Confidentiality of Alcohol and Drug Abuse Patient Records regulations: The Federal rules restrict any use of the information to criminally investigate or prosecute any alcohol or drug abuse patient.[facility] CenterIn the event this information is protected by the Federal Confidentiality of Alcohol and Drug Abuse Patient Records regulations: The Federal rules restrict any use of the information to criminally investigate or prosecute any alcohol or drug abuse patient.[facility] CenterIn the event this information is protected by the Federal Confidentiality of Alcohol and Drug Abuse Patient Records regulations: The Federal rules restrict any use of the information to criminally investigate or prosecute any alcohol or drug abuse patient.[facility] CenterIn the event this information is protected by the Federal Confidentiality of Alcohol and Drug Abuse Patient Records regulations: The Federal rules restrict any use of the information to criminally investigate or prosecute any alcohol or drug abuse patient.[facility] CenterIn the event this information is protected by the Federal Confidentiality of Alcohol and Drug Abuse Patient Records regulations: The Federal rules restrict any use of the information to criminally investigate or prosecute any alcohol or drug abuse patient.[facility] CenterIn the event this information is protected by the Federal Confidentiality of Alcohol and Drug Abuse Patient Records regulations: The Federal rules restrict any use of the information to criminally investigate or prosecute any alcohol or drug abuse patient.[facility] CenterIn the event this information is protected by the Federal Confidentiality of Alcohol and Drug Abuse Patient Records regulations: The Federal rules restrict any use of the information to criminally investigate or prosecute any alcohol or drug abuse patient.[facility] CenterIn the event this information is protected by the Federal Confidentiality of Alcohol and Drug Abuse Patient Records regulations: The Federal rules restrict any use of the information to criminally investigate or prosecute any alcohol or drug abuse patient.[facility] CenterIn the event this information is protected by the Federal Confidentiality of Alcohol and Drug Abuse Patient Records regulations: The Federal rules restrict any use of the information to criminally investigate or prosecute any alcohol or drug abuse patient.[facility] CenterIn the event this information is protected by the Federal Confidentiality of Alcohol and Drug Abuse Patient Records regulations: The Federal rules restrict any use of the information to criminally investigate or prosecute any alcohol or drug abuse patient.[facility] CenterIn the event this information is protected by the Federal Confidentiality of Alcohol and Drug Abuse Patient Records regulations: The Federal rules restrict any use of the information to criminally investigate or prosecute any alcohol or drug abuse patient.[facility] CenterIn the event this information is protected by the Federal Confidentiality of Alcohol and Drug Abuse Patient Records regulations: The Federal rules restrict any use of the information to criminally investigate or prosecute any alcohol or drug abuse patient.[facility] CenterIn the event this information is protected by the Federal Confidentiality of Alcohol and Drug Abuse Patient Records regulations: The Federal rules restrict any use of the information to criminally investigate or prosecute any alcohol or drug abuse patient.[facility] CenterIn the event this information is protected by the Federal Confidentiality of Alcohol and Drug Abuse Patient Records regulations: The Federal rules restrict any use of the information to criminally investigate or prosecute any alcohol or drug abuse patient.[facility] CenterIn the event this information is protected by the Federal Confidentiality of Alcohol and Drug Abuse Patient Records regulations: The Federal rules restrict any use of the information to criminally investigate or prosecute any alcohol or drug abuse patient.[facility] CenterIn the event this information is protected by the Federal Confidentiality of Alcohol and Drug Abuse Patient Records regulations: The Federal rules restrict any use of the information to criminally investigate or prosecute any alcohol or drug abuse patient.[facility] CenterIn the event this information is protected by the Federal Confidentiality of Alcohol and Drug Abuse Patient Records regulations: The Federal rules restrict any use of the information to criminally investigate or prosecute any alcohol or drug abuse patient.[facility] CenterIn the event this information is protected by the Federal Confidentiality of Alcohol and Drug Abuse Patient Records regulations: The Federal rules restrict any use of the information to criminally investigate or prosecute any alcohol or drug abuse patient.[facility] CenterIn the event this information is protected by the Federal Confidentiality of Alcohol and Drug Abuse Patient Records regulations: The Federal rules restrict any use of the information to criminally investigate or prosecute any alcohol or drug abuse patient.[facility] CenterIn the event this information is protected by the Federal Confidentiality of Alcohol and Drug Abuse Patient Records regulations: The Federal rules restrict any use of the information to criminally investigate or prosecute any alcohol or drug abuse patient.[facility] CenterIn the event this information is protected by the Federal Confidentiality of Alcohol and Drug Abuse Patient Records regulations: The Federal rules restrict any use of the information to criminally investigate or prosecute any alcohol or drug abuse patient.[facility] CenterIn the event this information is protected by the Federal Confidentiality of Alcohol and Drug Abuse Patient Records regulations: The Federal rules restrict any use of the information to criminally investigate or prosecute any alcohol or drug abuse patient.[facility] CenterIn the event this information is protected by the Federal Confidentiality of Alcohol and Drug Abuse Patient Records regulations: The Federal rules restrict any use of the information to criminally investigate or prosecute any alcohol or drug abuse patient.[facility] CenterIn the event this information is protected by the Federal Confidentiality of Alcohol and Drug Abuse Patient Records regulations: The Federal rules restrict any use of the information to criminally investigate or prosecute any alcohol or drug abuse patient.[facility] CenterIn the event this information is protected by the Federal Confidentiality of Alcohol and Drug Abuse Patient Records regulations: The Federal rules restrict any use of the information to criminally investigate or prosecute any alcohol or drug abuse patient.[facility] CenterIn the event this information is protected by the Federal Confidentiality of Alcohol and Drug Abuse Patient Records regulations: The Federal rules restrict any use of the information to criminally investigate or prosecute any alcohol or drug abuse patient.[facility] CenterIn the event this information is protected by the Federal Confidentiality of Alcohol and Drug Abuse Patient Records regulations: The Federal rules restrict any use of the information to criminally investigate or prosecute any alcohol or drug abuse patient.[facility] CenterIn the event this information is protected by the Federal Confidentiality of Alcohol and Drug Abuse Patient Records regulations: The Federal rules restrict any use of the information to criminally investigate or prosecute any alcohol or drug abuse patient.[facility] CenterIn the event this information is protected by the Federal Confidentiality of Alcohol and Drug Abuse Patient Records regulations: The Federal rules restrict any use of the information to criminally investigate or prosecute any alcohol or drug abuse patient.[facility] CenterIn the event this information is protected by the Federal Confidentiality of Alcohol and Drug Abuse Patient Records regulations: The Federal rules restrict any use of the information to criminally investigate or prosecute any alcohol or drug abuse patient.[facility] CenterIn the event this information is protected by the Federal Confidentiality of Alcohol and Drug Abuse Patient Records regulations: The Federal rules restrict any use of the information to criminally investigate or prosecute any alcohol or drug abuse patient.[facility] CenterIn the event this information is protected by the Federal Confidentiality of Alcohol and Drug Abuse Patient Records regulations: The Federal rules restrict any use of the information to criminally investigate or prosecute any alcohol or drug abuse patient.[facility] CenterIn the event this information is protected by the Federal Confidentiality of Alcohol and Drug Abuse Patient Records regulations: The Federal rules restrict any use of the information to criminally investigate or prosecute any alcohol or drug abuse patient.[facility] CenterIn the event this information is protected by the Federal Confidentiality of Alcohol and Drug Abuse Patient Records regulations: The Federal rules restrict any use of the information to criminally investigate or prosecute any alcohol or drug abuse patient.[facility] CenterIn the event this information is protected by the Federal Confidentiality of Alcohol and Drug Abuse Patient Records regulations: The Federal rules restrict any use of the information to criminally investigate or prosecute any alcohol or drug abuse patient.[facility] CenterIn the event this information is protected by the Federal Confidentiality of Alcohol and Drug Abuse Patient Records regulations: The Federal rules restrict any use of the information to criminally investigate or prosecute any alcohol or drug abuse patient.[facility] CenterIn the event this information is protected by the Federal Confidentiality of Alcohol and Drug Abuse Patient Records regulations: The Federal rules restrict any use of the information to criminally investigate or prosecute any alcohol or drug abuse patient.[facility] CenterIn the event this information is protected by the Federal Confidentiality of Alcohol and Drug Abuse Patient Records regulations: The Federal rules restrict any use of the information to criminally investigate or prosecute any alcohol or drug abuse patient.[facility] CenterIn the event this information is protected by the Federal Confidentiality of Alcohol and Drug Abuse Patient Records regulations: The Federal rules restrict any use of the information to criminally investigate or prosecute any alcohol or drug abuse patient.[facility]In the event this information is protected by the Federal Confidentiality of Alcohol and Drug Abuse Patient Records regulations: The Federal rules restrict any use of the information to criminally investigate or prosecute any alcohol or drug abuse patient.[facility] CenterIn the event this information is protected by the Federal Confidentiality of Alcohol and Drug Abuse Patient Records regulations: The Federal rules restrict any use of the information to criminally investigate or prosecute any alcohol or drug abuse patient.[facility] CenterIn the event this information is protected by the Federal Confidentiality of Alcohol and Drug Abuse Patient Records regulations: The Federal rules restrict any use of the information to criminally investigate or prosecute any alcohol or drug abuse patient.[facility] CenterIn the event this information is protected by the Federal Confidentiality of Alcohol and Drug Abuse Patient Records regulations: The Federal rules restrict any use of the information to criminally investigate or prosecute any alcohol or drug abuse patient.[facility] CenterIn the event this information is protected by the Federal Confidentiality of Alcohol and Drug Abuse Patient Records regulations: The Federal rules restrict any use of the information to criminally investigate or prosecute any alcohol or drug abuse patient.[facility] CenterIn the event this information is protected by the Federal Confidentiality of Alcohol and Drug Abuse Patient Records regulations: The Federal rules restrict any use of the information to criminally investigate or prosecute any alcohol or drug abuse patient.[facility] CenterIn the event this information is protected by the Federal Confidentiality of Alcohol and Drug Abuse Patient Records regulations: The Federal rules restrict any use of the information to criminally investigate or prosecute any alcohol or drug abuse patient.[facility] CenterIn the event this information is protected by the Federal Confidentiality of Alcohol and Drug Abuse Patient Records regulations: The Federal rules restrict any use of the information to criminally investigate or prosecute any alcohol or drug abuse patient.[facility] CenterIn the event this information is protected by the Federal Confidentiality of Alcohol and Drug Abuse Patient Records regulations: The Federal rules restrict any use of the information to criminally investigate or prosecute any alcohol or drug abuse patient.[facility] CenterIn the event this information is protected by the Federal Confidentiality of Alcohol and Drug Abuse Patient Records regulations: The Federal rules restrict any use of the information to criminally investigate or prosecute any alcohol or drug abuse patient.[facility] CenterIn the event this information is protected by the Federal Confidentiality of Alcohol and Drug Abuse Patient Records regulations: The Federal rules restrict any use of the information to criminally investigate or prosecute any alcohol or drug abuse patient.[facility] CenterIn the event this information is protected by the Federal Confidentiality of Alcohol and Drug Abuse Patient Records regulations: The Federal rules restrict any use of the information to criminally investigate or prosecute any alcohol or drug abuse patient.[facility] CenterIn the event this information is protected by the Federal Confidentiality of Alcohol and Drug Abuse Patient Records regulations: The Federal rules restrict any use of the information to criminally investigate or prosecute any alcohol or drug abuse patient.[facility] CenterIn the event this information is protected by the Federal Confidentiality of Alcohol and Drug Abuse Patient Records regulations: The Federal rules restrict any use of the information to criminally investigate or prosecute any alcohol or drug abuse patient.[facility] CenterIn the event this information is protected by the Federal Confidentiality of Alcohol and Drug Abuse Patient Records regulations: The Federal rules restrict any use of the information to criminally investigate or prosecute any alcohol or drug abuse patient.[facility] CenterIn the event this information is protected by the Federal Confidentiality of Alcohol and Drug Abuse Patient Records regulations: The Federal rules restrict any use of the information to criminally investigate or prosecute any alcohol or drug abuse patient.[facility] CenterIn the event this information is protected by the Federal Confidentiality of Alcohol and Drug Abuse Patient Records regulations: The Federal rules restrict any use of the information to criminally investigate or prosecute any alcohol or drug abuse patient.[facility] CenterIn the event this information is protected by the Federal Confidentiality of Alcohol and Drug Abuse Patient Records regulations: The Federal rules restrict any use of the information to criminally investigate or prosecute any alcohol or drug abuse patient.[facility] CenterIn the event this information is protected by the Federal Confidentiality of Alcohol and Drug Abuse Patient Records regulations: The Federal rules restrict any use of the information to criminally investigate or prosecute any alcohol or drug abuse patient.[facility] CenterIn the event this information is protected by the Federal Confidentiality of Alcohol and Drug Abuse Patient Records regulations: The Federal rules restrict any use of the information to criminally investigate or prosecute any alcohol or drug abuse patient.[facility] CenterIn the event this information is protected by the Federal Confidentiality of Alcohol and Drug Abuse Patient Records regulations: The Federal rules restrict any use of the information to criminally investigate or prosecute any alcohol or drug abuse patient.[facility] CenterIn the event this information is protected by the Federal Confidentiality of Alcohol and Drug Abuse Patient Records regulations: The Federal rules restrict any use of the information to criminally investigate or prosecute any alcohol or drug abuse patient.[facility] CenterIn the event this information is protected by the Federal Confidentiality of Alcohol and Drug Abuse Patient Records regulations: The Federal rules restrict any use of the information to criminally investigate or prosecute any alcohol or drug abuse patient.[facility] CenterIn the event this information is protected by the Federal Confidentiality of Alcohol and Drug Abuse Patient Records regulations: The Federal rules restrict any use of the information to criminally investigate or prosecute any alcohol or drug abuse patient.[facility] CenterIn the event this information is protected by the Federal Confidentiality of Alcohol and Drug Abuse Patient Records regulations: The Federal rules restrict any use of the information to criminally investigate or prosecute any alcohol or drug abuse patient.[facility] CenterIn the event this information is protected by the Federal Confidentiality of Alcohol and Drug Abuse Patient Records regulations: The Federal rules restrict any use of the information to criminally investigate or prosecute any alcohol or drug abuse patient.[facility] CenterIn the event this information is protected by the Federal Confidentiality of Alcohol and Drug Abuse Patient Records regulations: The Federal rules restrict any use of the information to criminally investigate or prosecute any alcohol or drug abuse patient.[facility] CenterIn the event this information is protected by the Federal Confidentiality of Alcohol and Drug Abuse Patient Records regulations: The Federal rules restrict any use of the information to criminally investigate or prosecute any alcohol or drug abuse patient.[facility] CenterIn the event this information is protected by the Federal Confidentiality of Alcohol and Drug Abuse Patient Records regulations: The Federal rules restrict any use of the information to criminally investigate or prosecute any alcohol or drug abuse patient.[facility] CenterIn the event this information is protected by the Federal Confidentiality of Alcohol and Drug Abuse Patient Records regulations: The Federal rules restrict any use of the information to criminally investigate or prosecute any alcohol or drug abuse patient.[facility] CenterIn the event this information is protected by the Federal Confidentiality of Alcohol and Drug Abuse Patient Records regulations: The Federal rules restrict any use of the information to criminally investigate or prosecute any alcohol or drug abuse patient.[facility] CenterIn the event this information is protected by the Federal Confidentiality of Alcohol and Drug Abuse Patient Records regulations: The Federal rules restrict any use of the information to criminally investigate or prosecute any alcohol or drug abuse patient.[facility] CenterIn the event this information is protected by the Federal Confidentiality of Alcohol and Drug Abuse Patient Records regulations: The Federal rules restrict any use of the information to criminally investigate or prosecute any alcohol or drug abuse patient.[facility] CenterIn the event this information is protected by the Federal Confidentiality of Alcohol and Drug Abuse Patient Records regulations: The Federal rules restrict any use of the information to criminally investigate or prosecute any alcohol or drug abuse patient.[facility] CenterIn the event this information is protected by the Federal Confidentiality of Alcohol and Drug Abuse Patient Records regulations: The Federal rules restrict any use of the information to criminally investigate or prosecute any alcohol or drug abuse patient.[facility] CenterIn the event this information is protected by the Federal Confidentiality of Alcohol and Drug Abuse Patient Records regulations: The Federal rules restrict any use of the information to criminally investigate or prosecute any alcohol or drug abuse patient.[facility] CenterIn the event this information is protected by the Federal Confidentiality of Alcohol and Drug Abuse Patient Records regulations: The Federal rules restrict any use of the information to criminally investigate or prosecute any alcohol or drug abuse patient.[facility] CenterIn the event this information is protected by the Federal Confidentiality of Alcohol and Drug Abuse Patient Records regulations: The Federal rules restrict any use of the information to criminally investigate or prosecute any alcohol or drug abuse patient.[facility] CenterIn the event this information is protected by the Federal Confidentiality of Alcohol and Drug Abuse Patient Records regulations: The Federal rules restrict any use of the information to criminally investigate or prosecute any alcohol or drug abuse patient.[facility] CenterIn the event this information is protected by the Federal Confidentiality of Alcohol and Drug Abuse Patient Records regulations: The Federal rules restrict any use of the information to criminally investigate or prosecute any alcohol or drug abuse patient.[facility] CenterIn the event this information is protected by the Federal Confidentiality of Alcohol and Drug Abuse Patient Records regulations: The Federal rules restrict any use of the information to criminally investigate or prosecute any alcohol or drug abuse patient.[facility] CenterIn the event this information is protected by the Federal Confidentiality of Alcohol and Drug Abuse Patient Records regulations: The Federal rules restrict any use of the information to criminally investigate or prosecute any alcohol or drug abuse patient.[facility] FOR RECORDS PERTAINING TO PATIENTS WHO ARE OR HAVE BEEN ENROLLED IN A CHEMICAL DEPENDENCY/SUBSTANCEABUSE PROGRAM, SOME INFORMATION MAY BE OMITTED. This clinical summary was aggregated from multiple sources. Caution should be exercised in using it in the provision of clinical care. This summary normalizes information from multiple sources, and as a consequence, information in this document may materially change the coding, format and clinical context of patient data. In addition, data may be omitted in some cases. CLINICAL DECISIONS SHOULD BE BASED ON THE PRIMARY CLINICAL RECORDS. [employer] [facility]. provides no warranty or guarantee of the accuracy or completeness of information in this document.
== END 2024-12-31 13:07 | disposition home or self-care (01) ==
LOC: WC 13:07
PROVIDERS: PCP Family Medicine; Visit Provider Physician Assistant
DX: I87.312 Chronic venous hypertension (idiopathic) with ulcer of left lower extremity (principal); L97.822 Non-pressure chronic ulcer of other part of left lower leg with fat layer exposed
CPT/HCPCS: G0463